=== PATIENT | male | born 1960 | race Hispanic/Latino ===

== ENCOUNTER 2017-05-28 21:18 | Day surgery (SDC) | payer OTHER ==
[~2017-05-28] VITALS: Ht 172.7 cm; Wt 96.2 kg
[~2017-05-28 21:18] MED LIST: AC325T PO; ATOR10TA66 PO; BCL10T PO; CITA20TA7 PO; CYCL10TA9 PO; DCS100C PO; DICL75TA2; DICL75TA2 PO; DOXY100C2 PO; FAMO20TA73 PO; HYDR1TAB PO; LISI1TAB6 PO; LORA0.5T34 PO; Pantoprazole Sodium PO; SILD100T; Trazodone Hcl PO
--- NOTE | 2017-05-28 21:42 | ED Integumentary General ---
General Chief Complaint: Skin/Wound Problems Stated Complaint: L SIDE SPIDER BITE Nursing Triage Note: Pt reports was asleep and awoke to a burn/sting in the left mid upper axillary line around [id number]. Pt had no ride until tonight to be evaluated. Source: patient, spouse Exam Limitations: no limitations History of Present Illness Time seen by provider: 21:37 Initial Comments Patient presents by private conveyance the ER with a chief complaint of a feeling a stinging bite in his left armpit earlier this afternoon. He started developing a rash and some achy pain in his armpit and feels he has a spider bite. He's had this before. He does not have a history of hidradenitis. No allergies to any antibiotics. He is having no nausea today. No shortness breath or chest pain. No itching Allergies and Home Medications Allergies Coded Allergies: codeine (Verified Allergy, Unknown, 04/21/10) Home Medications Acetaminophen 325 Mg Tab, 650 MG PO Q4H PRN for MILD PAIN, #100 Prescribed by: CLEOPATRA MCKENNA on 10/26/14 0938 Atorvastatin Calcium 10 Mg Tablet, #30 (Reported) Citalopram Hydrobromide 20 Mg Tablet, #30 (Reported) Cyclobenzaprine HCl 10 Mg Tablet, #60 (Reported) Diclofenac Sodium 75 Mg Tablet.dr, 75 MG PO BID, (Reported) Diclofenac Sodium 75 Mg Tablet.dr, #60 (Reported) Docusate Sodium 100 Mg Cap, 100 MG PO BID, #60 Prescribed by: CLEOPATRA MCKENNA on 10/26/14 0938 Famotidine 20 Mg Tablet, 20 MG PO BID, (Reported) Hctz/Lisinopril 1 Each Tablet, 1 EACH PO DAILY, (Reported) Hydrocodone Bit/Acetaminophen 1 Each Tablet, 1-2 EACH PO Q4HR PRN, #20 Ref 0 Prescribed by: CIRO PAL on 04/19/102022 Ondansetron HCl 4 Mg Tab, 4 MG PO Q6H PRN for NAUSEA/VOMITING-1ST LINE, #20 Ref 0 Prescribed by: HONEY WILSON on 05/28/172230 Sildenafil Citrate 100 Mg Tablet, #6 (Reported) Sulfamethoxazole/Trimethoprim 1 Each Tablet, 2 EACH PO BID for 10 Days, #38 Ref 0 Prescribed by: HONEY WILSON on 7/18/17 2212 Constitutional: No chills, No diaphoresis, No fever, No malaise Respiratory: No cough, No short of breath Cardiovascular: No chest pain, No palpitations Gastrointestinal: No abdominal pain, No nausea Skin: No pruritus, rash Psychiatric/Neurological: Denies Headache, Denies Numbness, Denies Paresthesia Past Czotqci-Fqssku-Uglwrj Hx Patient Social History Alcohol Use: Occasionally Uses Recreational Drug Use: No Smoking Status: Never a Smoker Recent Foreign Travel: No Contact w/Someone Who Travel: No Recent Infectious Disease Expo: No Recent Hopitalizations: No Immunizations Up To Date Date of Influenza Vaccine: Oct 21, 2014 Seasonal Allergies Seasonal Allergies: No Surgeries HX Surgeries: Yes (R KNEE/BACK) Respiratory Hx Respiratory Disorders: No Cardiovascular Hx Cardiac Disorders: Yes Cardiac Disorders: Hypertension Neurological Hx Neurological Disorders: Yes (cervical stenosis) Neurological Disorders: Neuropathy Reproductive System Hx Reproductive Disorders: No Genitourinary Hx Genitourinary Disorders: Yes (Retention) Gastrointestinal Hx Gastrointestinal Disorders: Yes Gastrointestinal Disorders: Gastroesophageal Reflux Musculoskeletal Hx Musculoskeletal Disorders: Yes Musculoskeletal Disorders: Arthritis Endocrine Hx Endocrine Disorders: No HEENT HX ENT Disorders: No Cancer Hx Cancer: No Psychosocial Hx Psychiatric Problems: No Integumentary HX Skin/Integumentary Disorder: No Blood Transfusions Hx Blood Disorders: No Physical Exam Vital Signs Vital Sign - Last 12Hours 05/28/ 21:23 Temp 99.2 Pulse 111 Resp 20 B/P (MAP) 148/95 Pulse Ox 95 O2 Delivery Room Air Capillary Refill : Less Than 3 Seconds General Appearance: WD/WN, no apparent distress HEENT: PERRL/EOMI, pharynx normal Cardiovascular: normal peripheral pulses, regular rate, rhythm Respiratory: lungs clear, normal breath sounds Gastrointestinal: non tender, soft Neurologic/Psychiatric: alert, oriented x 3 Skin: warm/dry, rash (faint erythematous petechial rash. No pruritus. There is a 2 x 3 mm opening draining scant purulent range over a swollen nodule in the left axilla consistent with abscess.) I&D : Site: left axilla Blade Size: 11 I & D Procedure: sterile drapes applied (chlorhexidine and alcohol) Progress Risk benefits and alternatives were discussed and the patient accepted the consequences of the procedure. The site was cleaned with chlorhexidine and alcohol and infiltrated with 6 cc of 2% lidocaine with epinephrine. Pain control was assured and then an 11 blade was used to matthew open a cross-shaped 7 mm opening over the poor where the purulence had been recently draining. A small amount of purulence and modest amount of serous sinus drainage came out. Loculations were broken up with hemostats and some more purulence came out. The wound was then cleaned thoroughly with chlorhexidine and a dressing was applied. Instructions for wound care were given and the patient was treated with antibiotics. The patient tolerated the procedure very well without any pain. Progress/Results/Core Measures Results/Orders Lab Results Laboratory Tests Test 05/28/17 22:00 Range/Units White Blood Count 12.5 H 4.3-11.0 10^3/uL Red Blood Count 4.59 4.35-5.85 10^6/uL Hemoglobin 13.9 13.3-17.7 G/DL Hematocrit 39 L 40-54 % Mean Corpuscular Volume 86 80-99 FL Mean Corpuscular Hemoglobin 30 25-34 PG Mean Corpuscular Hemoglobin Concent 35 32-36 G/DL Red Cell Distribution Width 13.6 10.0-14.5 % Platelet Count 280 130-400 10^3/uL Mean Platelet Volume 9.9 7.4-10.4 FL Neutrophils (%) (Auto) 82 H 42-75 % Lymphocytes (%) (Auto) 11 L 12-44 % Monocytes (%) (Auto) 5 0-12 % Eosinophils (%) (Auto) 2 0-10 % Basophils (%) (Auto) 0 0-10 % Neutrophils # (Auto) 10.2 H 1.8-7.8 X 10^3 Lymphocytes # (Auto) 1.4 1.0-4.0 X 10^3 Monocytes # (Auto) 0.6 0.0-1.0 X 10^3 Eosinophils # (Auto) 0.3 0.0-0.3 10^3/uL Basophils # (Auto) 0.0 0.0-0.1 10^3/uL Sodium Level 141 135-145 MMOL/L Potassium Level 2.8 L 3.6-5.0 MMOL/L Chloride Level 105 98-107 MMOL/L Carbon Dioxide Level 23 21-32 MMOL/L Anion Gap 13 5-14 MMOL/L Blood Urea Nitrogen 16 7-18 MG/DL Creatinine 0.82 0.60-1.30 MG/DL Estimat Glomerular Filtration Rate > 60 BUN/Creatinine Ratio 20 Glucose Level 141 H 70-105 MG/DL Lactic Acid Level 2.69 *H 0.50-2.00 MMOL/L Calcium Level 8.6 8.5-10.1 MG/DL Total Bilirubin 0.7 0.1-1.0 MG/DL Aspartate Amino Transf (AST/SGOT) 18 5-34 U/L Alanine Aminotransferase (ALT/SGPT) 19 0-55 U/L Alkaline Phosphatase 114 40-136 U/L Total Protein 6.9 6.4-8.2 GM/DL Albumin 3.7 3.2-4.5 GM/DL My Orders Orders - HONEY WILSON Sulfamethoxazole/Trimet Ds Tab (Bactrim (05/28/17 21:45) Lidocaine/Epi 2% 1:100,000 (Xylocaine/Ep (05/28/17 21:45) Cbc With Automated Diff (05/28/17 21:53) Lactic Acid Analyzer (05/28/17 21:53) Comprehensive Metabolic Panel (05/28/17 21:53) Saline Lock/Iv-Start (05/28/17 22:03) Potassium Chloride (Tablet) (K Dur Table (05/28/17 22:30) Ceftriaxone Injection (Rocephin Injectio (05/28/17 22:45) Ns Iv 1000 Ml (Sodium Chloride 0.9%) (05/28/17 22:35) Ns Iv 1000 Ml (Sodium Chloride 0.9%) (05/28/17 22:45) Blood Culture (05/28/17 23:16) Sputum Culture (05/28/17 23:16) Ua Culture If Indicated (05/28/17 23:16) Protime With Inr (05/28/17 23:16) Partial Thromboplastin Time (05/28/17 23:16) Chest 1 View, Ap/Pa Only (05/28/17 23:16) O2 (05/28/17 23:16) Saline Lock/Iv-Start (05/28/17 23:16) Vital Signs Adult Sepsis Patie Q1HR (05/28/17 23:16) Remove Rings In Anticipation O (05/28/17 23:16) Medications Given in ED Current Medications Medications Dose Ordered Sig/Kacey Route Start Time Stop Time Status Last Admin Dose Admin Ceftriaxone Sodium 1000 mg/ Sodium Chloride 50 ml @ 100 mls/hr ONCE ONCE IV 05/28/17 22:45 05/28/17 23:14 DC 05/28/17 22:45 100 MLS/HR Lidocaine/ Epinephrine 20 ml ONCE ONCE INJ 05/28/17 21:45 05/28/17 21:46 DC 05/28/17 21:49 5 ML Potassium Chloride 40 meq ONCE ONCE PO 05/28/17 22:30 05/28/17 22:31 DC 05/28/17 22:36 40 MEQ Sodium Chloride 1,000 ml @ 0 mls/hr Q0M ONCE IV 05/28/17 22:35 05/28/17 22:37 DC 05/28/17 22:45 999 MLS/HR Trimethoprim/ Sulfamethoxazole 2 ea ONCE ONCE PO 05/28/17 21:45 05/28/17 21:46 DC 05/28/17 21:49 2 EA Vital Signs/I&O Vital Sign - Last 12Hours 05/28/17 05/28/17 21:23 21:49 Temp 99.2 99.2 Pulse 111 Resp 20 B/P (MAP) 148/95 Pulse Ox 95 O2 Delivery Room Air Blood Pressure Mean: 112 Progress Note #1: Time: 22:06 Progress Note He's tachycardia although the rest of his vital signs are okay we would just get some lactate CBC and CMP show that he is not septic. If he is septic we will give him IV antibiotics such as Rocephin. There is only a very modest amount of purulence from the wound however he does have a red rash all over. It is more than likely that this was caught early and the wound will drain well. Even if he has to receive IV Rocephin he will likely do well to go home on double strength Bactrim 2 tablets twice a day and follow-up as needed with Dr. Cabral. Progress Note #2: Time: 22:37 Progress Note Potassium level 2.8. He is tolerating by mouth's okay without any nauseous we' ll start his repletion with tablets tonight. We'll have him sweet pickle maker some over- the-counter potassium tomorrow and take it for for 5 days. Progress Note #3: Time: 23:28 Progress Note Lactate was 2.69. We'll give him 2 L of fluid and Rocephin and hold him on observation stay. Blood cultures will unfortunately be obtained after he is received Bactrim. Departure Communication Time/Spoke to Admitting Phy: 23:27 Communication Discussed the plan with Dr. Chavez as well as antibiotics and fluids and an overnight observation and she agrees. She will see the patient in the morning. Impression Impression: Primary Impression: Abscess Additional Impressions: Rash Hypokalemia Severe sepsis Disposition: ADMITTED INPATIENT (obs) Condition: Improved Decision to Admit Reason: Admit from ER (General) Decision to Admit/Date: May 28, 2017 Time/Decision to Admit Time: 23:33 Departure-Patient Inst. Referrals: [facility] (PCP/Family) Primary Care Physician Patient Instructions: Abscess Incision and Drainage (DC) Add. Discharge Instructions: You look to have an infected spider bite in your left armpit that has been opened and drained primarily. The numbing medicine will wear off in 45 minutes to an hour. After that you should probably use Tylenol 1000 mg every 8 hours or ibuprofen 800 mg every 8 hours. It is okay to mix these medicines. You can also apply an ice pack directly over the wound this will help with the swelling as well as the pain. Please keep the wound loosely dressed with gauze and clean it as needed with soap and water only. If you're having worsening redness or pain over the next few days or you start developing fevers chills or nausea and vomiting then you should either return to the ER or go to your doctor for further workup and management. Take the antibiotics 2 tablets twice daily with some food. You should also look into getting probiotics to be taken twice daily while you're on antibiotics to try and prevent having any upset stomach or diarrhea. 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 Follow up next week with your primary care physician to make sure you're potassium levels are okay. All discharge instructions reviewed with patient and/or family. Voiced understanding. Scripts Ondansetron HCl (Zofran) 4 Mg Tab 4 MG PO Q6H Y for NAUSEA/VOMITING-1ST LINE, #20 TAB 0 Refills Prov: HONEY WILSON 05/28/17 Sulfamethoxazole/Trimethoprim (Bactrim Ds Tablet) 1 Each Tablet 2 EACH PO BID for 10 Days, #38 TAB 0 Refills Prov: HONEY WILSON 05/28/17 Copy Copies To 1: ART QUINTERO TITUS J May 28, 2017 21:42
[2017-05-28] MEDS ORDERED: TRIM/SULFAMETH 160/800 (SEPTRA DS) TAB PO ONE (21:45)
[2017-05-28] MEDS ORDERED: LIDOCAINE/EPI 2% 1:100,00 (XYLOCAINE) 20 ML VIAL INJ ONE (21:45)
[2017-05-28 22:09] LABS: BASOPHILS % (AUTO) 0 % (0-10); EOSINOPHILS # (AUTO) 0.3 10^3/uL (0.0-0.3); EOSINOPHILS % (AUTO) 2 % (0-10); LYMPHOCYTES # (AUTO) 1.4 X 10^3 (1.0-4.0); LYMPHOCYTES % (AUTO) 11 % (12-44); MEAN CORPUSCULAR HEMOGLOBIN 30 PG (25-34); MEAN CORPUSCULAR HGB CONC 35 G/DL (32-36); MEAN CORPUSCULAR VOLUME 86 FL (80-99); MEAN PLATELET VOLUME 9.9 FL (7.4-10.4); MONOCYTES # (AUTO) 0.6 X 10^3 (0.0-1.0); MONOCYTES % (AUTO) 5 % (0-12); NEUTROPHILS # (AUTO) 10.2 X 10^3 (1.8-7.8); NEUTROPHILS % (AUTO) 82 % (42-75); PLATELET COUNT 280 10^3/uL (130-400); RED BLOOD COUNT 4.59 10^6/uL (4.35-5.85); RED CELL DISTRIBUTION WIDTH 13.6 % (10.0-14.5); WHITE BLOOD COUNT 12.5 10^3/uL (4.3-11.0)
[2017-05-28] MEDS ORDERED: SULF1TAB35 PO (22:12)
[2017-05-28 22:26] LABS: ALANINE AMINOTRANSFERASE 19 U/L (0-55); ALBUMIN 3.7 GM/DL (3.2-4.5); ANION GAP 13 MMOL/L (5-14); ASPARTATE AMINO TRANSFERASE 18 U/L (5-34); BILIRUBIN,TOTAL 0.7 MG/DL (0.1-1.0); BLOOD UREA NITROGEN 16 MG/DL (7-18); BUN/CREATININE RATIO 20; CALCIUM 8.6 MG/DL (8.5-10.1); CARBON DIOXIDE 23 MMOL/L (21-32); CHLORIDE 105 MMOL/L (98-107); CREATININE SERUM 0.82 MG/DL (0.60-1.30); GFR ESTIMATED > 60; GLUCOSE 141 MG/DL (70-105); POTASSIUM 2.8 MMOL/L (3.6-5.0); SODIUM 141 MMOL/L (135-145); TOTAL PROTEIN 6.9 GM/DL (6.4-8.2)
[2017-05-28] MEDS ORDERED: KCL 20 MEQ TAB (K-DUR) PO ONE (22:30)
[2017-05-28] MEDS ORDERED: ONDN4T PO (22:31)
[2017-05-28] MEDS ORDERED: NS IV 1000 ML 1,000 ML IV ONE (22:35)
[2017-05-28] MEDS ORDERED: NS IV 1000 ML 1,000 ML IV SCH (22:45)
[2017-05-28] MEDS ORDERED: cefTRIAXone INJECTION 1,000 MG in NS (IVPB) 50 ML IV ONE (22:45)
[2017-05-28 23:26] LABS: PROTHROMBIN TIME PATIENT 13.1 SEC (12.2-14.7)
[2017-05-29] MEDS ORDERED: ASPIRIN 81 MG CHEW (CHILDREN'S ASA) PO ONE (00:15)
[2017-05-29 00:23] LABS: BILIRUBIN,URINE NEGATIVE (NEGATIVE); KETONES,URINE NEGATIVE (NEGATIVE); LEUKOCYTE ESTERASE ,URINE NEGATIVE (NEGATIVE); NITRITE,URINE NEGATIVE (NEGATIVE); PH,URINE 6.5 (5-9); PROTEIN,URINE NEGATIVE (NEGATIVE); UROBILINOGEN,URINE 4 MG/DL (NORMAL)
[2017-05-29] MEDS ORDERED: methylPREDNISolone 125 MG (Solu-MEDROL) VIAL IVP ONE (00:30)
[2017-05-29] MEDS ORDERED: diphenhydrAMINE 50 MG/ML INJ (BENADRYL) IVP ONE (00:30)
[2017-05-29 00:32] LABS: SQUAMOUS EPITHELIAL CELL,UR 0-2 /HPF
[2017-05-29 01:07] LABS: MYOGLOBIN SERUM 68.5 NG/ML (10.0-92.0)
[2017-05-29] MEDS: morphine INJ 4 MG/ML 1 ML (VIAL/SYRINGE) IV PRN ×3 (02:25→06:49)
[2017-05-29] MEDS: NS IV 1000 ML 1,000 ML IV SCH ×2 (02:25→17:31)
[2017-05-29] MEDS: ACETAMINOPHEN 500 MG TAB (TYLENOL) PO PRN ×2 (03:33→13:35)
[2017-05-29 03:53] VITALS: BP 135/81
[2017-05-29 05:02] LABS: BASOPHILS % (AUTO) 0 % (0-10); EOSINOPHILS % (AUTO) 0 % (0-10); LYMPHOCYTES # (AUTO) 0.4 X 10^3 (1.0-4.0); LYMPHOCYTES % (AUTO) 3 % (12-44); MEAN CORPUSCULAR HEMOGLOBIN 30 PG (25-34); MEAN CORPUSCULAR HGB CONC 35 G/DL (32-36); MEAN CORPUSCULAR VOLUME 87 FL (80-99); MEAN PLATELET VOLUME 10.6 FL (7.4-10.4); MONOCYTES # (AUTO) 0.2 X 10^3 (0.0-1.0); MONOCYTES % (AUTO) 1 % (0-12); NEUTROPHILS # (AUTO) 14.7 X 10^3 (1.8-7.8); NEUTROPHILS % (AUTO) 96 % (42-75); PLATELET COUNT 261 10^3/uL (130-400); RED BLOOD COUNT 4.69 10^6/uL (4.35-5.85); RED CELL DISTRIBUTION WIDTH 13.8 % (10.0-14.5); WHITE BLOOD COUNT 15.4 10^3/uL (4.3-11.0)
[2017-05-29 05:16] LABS: ALANINE AMINOTRANSFERASE 22 U/L (0-55); ALBUMIN 3.9 GM/DL (3.2-4.5); ANION GAP 14 MMOL/L (5-14); ASPARTATE AMINO TRANSFERASE 22 U/L (5-34); BILIRUBIN,TOTAL 0.7 MG/DL (0.1-1.0); BLOOD UREA NITROGEN 11 MG/DL (7-18); BUN/CREATININE RATIO 14; CALCIUM 8.5 MG/DL (8.5-10.1); CARBON DIOXIDE 21 MMOL/L (21-32); CHLORIDE 105 MMOL/L (98-107); CREATININE SERUM 0.81 MG/DL (0.60-1.30); GFR ESTIMATED > 60; GLUCOSE 208 MG/DL (70-105); POTASSIUM 2.8 MMOL/L (3.6-5.0); SODIUM 140 MMOL/L (135-145); TOTAL PROTEIN 7.4 GM/DL (6.4-8.2)
[2017-05-29 05:35] LABS: BAND NEUTROPHILS 3 %; LYMPHOCYTES % (MANUAL) 5 %; NEUTROPHILS % (MANUAL) 91 %
[2017-05-29] MEDS: methylPREDNISolone 125 MG (Solu-MEDROL) VIAL IV SCH ×3 (06:02→17:31)
[2017-05-29] MEDS: HYDROcodone/APAP 5 MG/325 MG (LORTAB) TAB PO PRN ×4 (06:02→23:20)
[2017-05-29] MEDS: diphenhydrAMINE 50 MG/ML INJ (BENADRYL) IV PRN (06:02)
[2017-05-29] MEDS: TRIM/SULFAMETH 160/800 (SEPTRA DS) TAB PO SCH ×2 (06:02→17:30)
--- NOTE | 2017-05-29 07:17 | Diagnostic Imaging Report ---
INDICATION: Possible spider bite, infection. FINDINGS: The lungs are clear. The heart and vessels normal. There is no effusion or pneumothorax. IMPRESSION: Negative. Dictated by: Dictated on workstation # [id number]
[2017-05-29] MEDS ORDERED: CATHETER FLUSH 10 ML SYR IV PRN (07:30)
[2017-05-29 08:30] VITALS: BP 133/84
[2017-05-29] MEDS ORDERED: CELE200C PO (08:38)
[2017-05-29] MEDS ORDERED: AMLO5TAB2 PO (08:38)
[2017-05-29] MEDS ORDERED: GABA-488 PO (08:38)
[2017-05-29] MEDS ORDERED: SILD50TA PO (08:38)
[2017-05-29] MEDS ORDERED: POTASSIUM CL 10MEQ/50ML IVPB 100 ML IV SCH (09:00)
[2017-05-29] MEDS ORDERED: KCL 20 MEQ TAB (K-DUR) PO NR (09:45)
[2017-05-29] MEDS ORDERED: IBUPROFEN 600 MG (MOTRIN) TAB PO PRN (10:00)
[2017-05-29 12:30] VITALS: BP 156/94
[2017-05-29 13:00] VITALS: BP 156/84
--- NOTE | 2017-05-29 13:41 | Consultation ---
History of Present Illness History of Present Illness Patient Consulted On(chas/time) 05/29/17 13:36 Time Seen by Provider: 12:58 History of Present Illness Surgery is consulted regarding Left axillary abscess, ?? need for I&D. HPI: Patient presented to the ER with a chief complaint of a feeling a stinging bite in his left armpit yesterday afternoon. He started developing a rash and some achy pain in his armpit; thought it may be a spider bite. He believes he has had something similar before. He does not have a history of hidradenitis. No allergies to any antibiotics. Yesterday denied nausea, no shortness breath or chest pain. No itching He was admitted last night because he started complaining of right sided chest pain, also found to be Hypokalemic. When seen this afternoon he states the pain is still very bad; rating it as "13" out of 10. He thinks the redness is spreading as well. He had a very small incision done by the ER physician, but it has not improved the area. He is requiring IV pain meds. Pain shoots into shoulder and down his side. Allergies and Home Medications Allergies Coded Allergies: codeine (Verified Allergy, Unknown, 04/21/10) Home Medications Amlodipine Besylate 5 Mg Tablet, 5 MG PO DAILY, (Reported) Atorvastatin Calcium 10 Mg Tablet, 10 MG PO DAILY, (Reported) Celecoxib 200 Mg Capsule, 200 MG PO DAILY, (Reported) Citalopram Hydrobromide 20 Mg Tablet, 20 MG PO DAILY, (Reported) Cyclobenzaprine HCl 10 Mg Tablet, 10 MG PO TID PRN for MUSCLE SPASMS, (Reported) Famotidine 20 Mg Tablet, 20 MG PO DAILY, (Reported) Gabapentin 300 Mg Capsule, 300 MG PO DAILY, (Reported) Sildenafil Citrate 50 Mg Tablet, 100 MG PO DAILY PRN for ED, (Reported) TAKES 2 (50MG) TABLETS Past Kyuluec-Qmapop-Aelkqr Hx Patient Social History Alcohol Use: Occasionally Uses Recreational Drug Use: No Smoking Status: Never a Smoker Recent Foreign Travel: No Contact w/Someone Who Travel: No Recent Infectious Disease Expo: No Recent Hopitalizations: No Physical Abuse Screen: No Sexual Abuse: No Immunizations Up To Date Date of Influenza Vaccine: Oct 21, 2014 Seasonal Allergies Seasonal Allergies: No Surgeries HX Surgeries: Yes (R KNEE/BACK) Respiratory Hx Respiratory Disorders: No Cardiovascular Hx Cardiac Disorders: Yes Cardiac Disorders: Hypertension Neurological Hx Neurological Disorders: Yes (cervical stenosis) Neurological Disorders: Neuropathy Reproductive System Hx Reproductive Disorders: No Genitourinary Hx Genitourinary Disorders: Yes (Retention) Gastrointestinal Hx Gastrointestinal Disorders: Yes Gastrointestinal Disorders: Gastroesophageal Reflux Musculoskeletal Hx Musculoskeletal Disorders: Yes Musculoskeletal Disorders: Arthritis Endocrine Hx Endocrine Disorders: No HEENT HX ENT Disorders: No Cancer Hx Cancer: No Psychosocial Hx Psychiatric Problems: No Integumentary HX Skin/Integumentary Disorder: No Blood Transfusions Hx Blood Disorders: No Family Medical History Significant Family History: Heart Disease (Mother CHF), CAD Over 55 Years Old ( father had DC) Family Medial History: FH: congestive heart failure 19 MOTHER Myocardial infarction 19 FATHER Review of Systems-General Constitutional: chills, diaphoresis, malaise EENTM: No blurred vision, No dental problems, No epistaxis, No hearing loss, No throat swelling Respiratory: No cough, No dyspnea on exertion, No hemoptysis Cardiovascular: chest pain (right side last night, seems to have resolved), No palpitations Gastrointestinal: No abdominal pain, No diarrhea, No hematemesis Genitourinary: No dysuria, No frequency, other (retention) Musculoskeletal: joint pain, joint swelling, muscle stiffness Skin: see HPI Psychiatric/Neurological: Denies Anxiety, Denies Depressed, Denies Pre- Existing Deficit, Denies Seizure, Denies Tremors Physical Exam-General Problems Physical Exam Vital Signs Vital Sign - Last 12Hours 05/28/17 21:23 Temp 99.2 Pulse 111 Resp 20 B/P (MAP) 148/95 Pulse Ox 95 O2 Delivery Room Air Capillary Refill : Less Than 3 Seconds General Appearance: WD/WN, moderate distress (secondary to pain), obese Eyes: Bilateral Eye EOMI, Bilateral Eye PERRL HEENT: pharynx normal, No scleral icterus (R), No scleral icterus (L) Neck: non-tender, full range of motion, supple, normal inspection Respiratory: lungs clear, normal breath sounds, no respiratory distress, no accessory muscle use Cardiovascular: regular rate, rhythm, no edema, no murmur Gastrointestinal: normal bowel sounds, non tender, soft, no organomegaly, no pulsatile mass Rectal: deferred Extremities: normal range of motion, non-tender, normal inspection, no pedal edema, no calf tenderness 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, no motor/sensory deficits, alert, normal mood/affect, oriented x 3 Skin: normal color, warm/dry, other (in the left axilla there is an area of appx 20cm trasverse by 8-10 cm tall, of erythema, very tender even to light touch, no fluctuance) Lymphatic: no adenopathy (neck or groin, nothing right axilla, cannot fully examine left) Data Review Labs Laboratory Tests 05/28/17 22:00: White Blood Count 12.5H, Red Blood Count 4.59, Hemoglobin 13.9, Hematocrit 39L, Mean Corpuscular Volume 86, Mean Corpuscular Hemoglobin 30, Mean Corpuscular Hemoglobin Concent 35, Red Cell Distribution Width 13.6, Platelet Count 280, Mean Platelet Volume 9.9, Neutrophils (%) (Auto) 82H, Lymphocytes (%) (Auto) 11L , Monocytes (%) (Auto) 5, Eosinophils (%) (Auto) 2, Basophils (%) (Auto) 0, Neutrophils # (Auto) 10.2H, Lymphocytes # (Auto) 1.4, Monocytes # (Auto) 0.6, Eosinophils # (Auto) 0.3, Basophils # (Auto) 0.0, Prothrombin Time 13.1, INR Comment 1.0, Activated Partial Thromboplast Time 26, Sodium Level 141, Potassium Level 2.8L, Chloride Level 105, Carbon Dioxide Level 23, Anion Gap 13 , Blood Urea Nitrogen 16, Creatinine 0.82, Estimat Glomerular Filtration Rate > 60, BUN/Creatinine Ratio 20, Glucose Level 141H, Lactic Acid Level 2.69*H, Calcium Level 8.6, Total Bilirubin 0.7, Aspartate Amino Transf (AST/SGOT) 18, Alanine Aminotransferase (ALT/SGPT) 19, Alkaline Phosphatase 114, Total Protein 6.9, Albumin 3.7 05/28/17 23:47: Lactic Acid Level 1.87 05/29/17 00:00: Urine Color YELLOW, Urine Clarity CLEAR, Urine pH 6.5, Urine Specific [place] 1.015L, Urine Protein NEGATIVE, Urine Glucose (UA) NEGATIVE, Urine Ketones NEGATIVE, Urine Nitrite NEGATIVE, Urine Bilirubin NEGATIVE, Urine Urobilinogen 4H, Urine Leukocyte Esterase NEGATIVE, Urine RBC (Auto) 1+H, Urine RBC 0-2, Urine WBC NONE, Urine Squamous Epithelial Cells 0-2, Urine Crystals NONE, Urine Bacteria NEGATIVE, Urine Casts NONE, Urine Mucus NEGATIVE, Urine Culture Indicated NO 05/29/17 00:37: Myoglobin 68.5, Troponin I < 0.30 05/29/17 02:06: Lactic Acid Level 1.55 05/29/17 04:14: White Blood Count 15.4H, Red Blood Count 4.69, Hemoglobin 14.1, Hematocrit 41, Mean Corpuscular Volume 87, Mean Corpuscular Hemoglobin 30, Mean Corpuscular Hemoglobin Concent 35, Red Cell Distribution Width 13.8, Platelet Count 261, Mean Platelet Volume 10.6H, Neutrophils (%) (Auto) 96H, Lymphocytes (%) (Auto) 3L, Monocytes (%) (Auto) 1, Eosinophils (%) (Auto) 0, Basophils (%) (Auto) 0, Neutrophils # (Auto) 14.7H, Lymphocytes # (Auto) 0.4L, Monocytes # (Auto) 0.2, Eosinophils # (Auto) 0.0, Basophils # (Auto) 0.0, Neutrophils % (Manual) 91, Lymphocytes % (Manual) 5, Monocytes % (Manual) 1, Band Neutrophils 3, Blood Morphology Comment NORMAL, Sodium Level 140, Potassium Level 2.8L, Chloride Level 105, Carbon Dioxide Level 21, Anion Gap 14, Blood Urea Nitrogen 11, Creatinine 0.81, Estimat Glomerular Filtration Rate > 60, BUN/Creatinine Ratio 14, Glucose Level 208H, Calcium Level 8.5, Total Bilirubin 0.7, Aspartate Amino Transf (AST/SGOT) 22, Alanine Aminotransferase (ALT/SGPT) 22, Alkaline Phosphatase 117, Total Protein 7.4, Albumin 3.9 Assessment/Plan Assessment/Plan Assessment/Plan 1. Left Axillary Cellulitis/Abscess 2. Hypokalemia 3. HTN Pt will be placed on IV pain meds, continue oral Bactrim until we get microbiology results. NPO after midnight and get consent of I&D possible packing of Left axilla. Discussed procedure with pt; all risks and complications not limited to pain, bleeding, infection and scar. All questions answered to his satisfaction. Plan for surgery tomorrow because pt was eating today. Clinical Quality Measures DVT/VTE Risk/Contraindication: Risk Factor Score Per Nursin RFS Level Per Nursing on Admit: 4+=Very High CLEOPATRA ZAVALA DO May 29, 2017 13:41
[2017-05-29] MEDS: morphine INJ 4 MG/ML 1 ML (VIAL/SYRINGE) IVP PRN ×3 (14:34→22:10)
[2017-05-29] MEDS: CALCIUM CARBONATE 500 MG (TUMS) TAB.CHEW PO PRN ×2 (15:48→17:39)
[2017-05-29 16:00] VITALS: BP 179/95
[2017-05-29] MEDS ORDERED: CYCLOBENZAPRINE 10 MG (FLEXERIL) TAB PO PRN (16:15)
--- NOTE | 2017-05-29 19:44 | History & Physicial ([facility]S) ---
HPI History of Present Illness: 56 yo M that presented to ER after he states that he was bit by a spider. States that he did not see the spider. States that the area turned red and now is very tender and is draining a small amount of pus. He has not had anything like this in the past. States that it hurts when he moves his arm around. Denies any systemic symptoms like fever, chills or shortness of breath. Just prior to coming up to the floor patient complained of chest pain. ECG was normal. Patient denied shortness of breath. The pain went away in about 10 secs. It has not occurred again. States that he was very anxious about getting admitted. Denies racing heart or numbness or tingling in arm. Denies previous CAD. Source: patient, family (GF) Exam Limitations: no limitations Date seen by provider: May 29, 2017 Time Seen by Provider: 10:35 Attending Physician Abril Chavez MD PCP [facility] Date of Admission May 29, 2017 at 01:35 Home Medications Home Medications Reviewed patient Home Medication Reconciliation Form Allergies Coded Allergies: codeine (Verified Allergy, Unknown, 04/21/10) [id number] Hx Patient Social History Living Status: Lives with GF Alcohol Use: Occasionally Uses Recreational Drug Use: No Smoking Status: Never a Smoker Recent Foreign Travel: No Contact w/other who traveled: No Recent Hopitalizations: No Recent Infectious Disease Expo: No Physical Abuse Screen: No Sexual Abuse: No Immunizations Up To Date Date of Influenza Vaccine: Oct 21, 2014 Past Medical History HTN Obesity Family Medical History Significant Family History: Heart Disease (Mother CHF), CAD Over 55 Years Old ( father had OH) Family History: FH: congestive heart failure 19 MOTHER Myocardial infarction 19 FATHER Review of Systems ([facility]C) Constitutional: no symptoms reported, No chills, No dizziness, No fever EENTM: no symptoms reported, No throat pain, No throat swelling, No vision loss Respiratory: no symptoms reported, No cough, No dyspnea on exertion, No short of breath Cardiovascular: chest pain (resolved last night), No edema, No palpitations Gastrointestinal: no symptoms reported, No abdominal pain, No constipation, No diarrhea, No nausea, No vomiting Genitourinary: no symptoms reported, No dysuria, No frequency, No hematuria Musculoskeletal: muscle pain Skin: lesions, pruritus, rash Psychiatric/Neurological: Anxiety Reviewed Test Results Reviewed Test Results Lab Laboratory Tests Test 05/28/17 22:00 05/28/17 23:47 05/29/17 00:00 05/29/17 00:37 Range/Units White Blood Count 12.5 H 4.3-11.0 10^3/uL Red Blood Count 4.59 4.35-5.85 10^6/uL Hemoglobin 13.9 13.3-17.7 G/DL Hematocrit 39 L 40-54 % Mean Corpuscular Volume 86 80-99 FL Mean Corpuscular Hemoglobin 30 25-34 PG Mean Corpuscular Hemoglobin Concent 35 32-36 G/DL Red Cell Distribution Width 13.6 10.0-14.5 % Platelet Count 280 130-400 10^3/uL Mean Platelet Volume 9.9 7.4-10.4 FL Neutrophils (%) (Auto) 82 H 42-75 % Lymphocytes (%) (Auto) 11 L 12-44 % Monocytes (%) (Auto) 5 0-12 % Eosinophils (%) (Auto) 2 0-10 % Basophils (%) (Auto) 0 0-10 % Neutrophils # (Auto) 10.2 H 1.8-7.8 X 10^3 Lymphocytes # (Auto) 1.4 1.0-4.0 X 10^3 Monocytes # (Auto) 0.6 0.0-1.0 X 10^3 Eosinophils # (Auto) 0.3 0.0-0.3 10^3/uL Basophils # (Auto) 0.0 0.0-0.1 10^3/uL Prothrombin Time 13.1 12.2-14.7 SEC INR Comment 1.0 0.8-1.4 Activated Partial Thromboplast Time 26 24-35 SEC Sodium Level 141 135-145 MMOL/L Potassium Level 2.8 L 3.6-5.0 MMOL/L Chloride Level 105 98-107 MMOL/L Carbon Dioxide Level 23 21-32 MMOL/L Anion Gap 13 5-14 MMOL/L Blood Urea Nitrogen 16 7-18 MG/DL Creatinine 0.82 0.60-1.30 MG/DL Estimat Glomerular Filtration Rate > 60 BUN/Creatinine Ratio 20 Glucose Level 141 H 70-105 MG/DL Lactic Acid Level 2.69 *H 1.87 0.50-2.00 MMOL/L Calcium Level 8.6 8.5-10.1 MG/DL Total Bilirubin 0.7 0.1-1.0 MG/DL Aspartate Amino Transf (AST/SGOT) 18 5-34 U/L Alanine Aminotransferase (ALT/SGPT) 19 0-55 U/L Alkaline Phosphatase 114 40-136 U/L Total Protein 6.9 6.4-8.2 GM/DL Albumin 3.7 3.2-4.5 GM/DL Urine Color YELLOW Urine Clarity CLEAR Urine pH 6.5 5-9 Urine Specific [place] 1.015 L 1.016-1.022 Urine Protein NEGATIVE NEGATIVE Urine Glucose (UA) NEGATIVE NEGATIVE Urine Ketones NEGATIVE NEGATIVE Urine Nitrite NEGATIVE NEGATIVE Urine Bilirubin NEGATIVE NEGATIVE Urine Urobilinogen 4 H NORMAL MG/DL Urine Leukocyte Esterase NEGATIVE NEGATIVE Urine RBC (Auto) 1+ H NEGATIVE Urine RBC 0-2 /HPF Urine WBC NONE /HPF Urine Squamous Epithelial Cells 0-2 /HPF Urine Crystals NONE /LPF Urine Bacteria NEGATIVE /HPF Urine Casts NONE /LPF Urine Mucus NEGATIVE /LPF Urine Culture Indicated NO Myoglobin 68.5 10.0-92.0 NG/ML Troponin I < 0.30 <0.30 NG/ML Test 05/29/17 02:06 05/29/17 04:14 Range/Units Lactic Acid Level 1.55 0.50-2.00 MMOL/L White Blood Count 15.4 H 4.3-11.0 10^3/uL Red Blood Count 4.69 4.35-5.85 10^6/uL Hemoglobin 14.1 13.3-17.7 G/DL Hematocrit 41 40-54 % Mean Corpuscular Volume 87 80-99 FL Mean Corpuscular Hemoglobin 30 25-34 PG Mean Corpuscular Hemoglobin Concent 35 32-36 G/DL Red Cell Distribution Width 13.8 10.0-14.5 % Platelet Count 261 130-400 10^3/uL Mean Platelet Volume 10.6 H 7.4-10.4 FL Neutrophils (%) (Auto) 96 H 42-75 % Lymphocytes (%) (Auto) 3 L 12-44 % Monocytes (%) (Auto) 1 0-12 % Eosinophils (%) (Auto) 0 0-10 % Basophils (%) (Auto) 0 0-10 % Neutrophils # (Auto) 14.7 H 1.8-7.8 X 10^3 Lymphocytes # (Auto) 0.4 L 1.0-4.0 X 10^3 Monocytes # (Auto) 0.2 0.0-1.0 X 10^3 Eosinophils # (Auto) 0.0 0.0-0.3 10^3/uL Basophils # (Auto) 0.0 0.0-0.1 10^3/uL Neutrophils % (Manual) 91 % Lymphocytes % (Manual) 5 % Monocytes % (Manual) 1 % Band Neutrophils 3 % Blood Morphology Comment NORMAL Sodium Level 140 135-145 MMOL/L Potassium Level 2.8 L 3.6-5.0 MMOL/L Chloride Level 105 98-107 MMOL/L Carbon Dioxide Level 21 21-32 MMOL/L Anion Gap 14 5-14 MMOL/L Blood Urea Nitrogen 11 7-18 MG/DL Creatinine 0.81 0.60-1.30 MG/DL Estimat Glomerular Filtration Rate > 60 BUN/Creatinine Ratio 14 Glucose Level 208 H 70-105 MG/DL Calcium Level 8.5 8.5-10.1 MG/DL Total Bilirubin 0.7 0.1-1.0 MG/DL Aspartate Amino Transf (AST/SGOT) 22 5-34 U/L Alanine Aminotransferase (ALT/SGPT) 22 0-55 U/L Alkaline Phosphatase 117 40-136 U/L Total Protein 7.4 6.4-8.2 GM/DL Albumin 3.9 3.2-4.5 GM/DL Radiology Date of Exam: 05/28/17 CHEST 1 VIEW, AP/PA ONLY INDICATION: Possible spider bite, infection. FINDINGS: The lungs are clear. The heart and vessels normal. There is no effusion or pneumothorax. IMPRESSION: Negative. Physical Exam-([facility]C) Physical Exam Vital Signs VS - Last 72 Hours, by Label 05/28/17 05/28/17 05/29/17 05/29/17 21:23 21:49 00:33 01:27 Temp 99.2 99.2 99.2 99.6 Pulse 111 99 Resp 20 20 B/P (MAP) 148/95 Pulse Ox 95 95 O2 Delivery Room Air Room Air 05/29/17 05/29/17 05/29/17 05/29/17 01:27 02:00 02:45 03:53 Temp 99.6 98.1 Pulse 99 111 103 Resp 20 20 B/P (MAP) 135/81 135/81 Pulse Ox 95 93 O2 Delivery Room Air Room Air Room Air 05/29/17 05/29/17 05/29/17 05/29/17 07:37 08:30 12:30 13:00 Temp 99.1 96.9 98.0 Pulse 100 97 115 95 Resp 22 24 22 B/P (MAP) 133/84 156/94 156/84 Pulse Ox 93 93 94 O2 Delivery Room Air Room Air Room Air 05/29/17 05/29/17 13:10 16:00 Temp 98.4 Pulse 101 102 Resp 22 B/P (MAP) 179/95 Pulse Ox 97 O2 Delivery Room Air Capillary Refill : Less Than 3 Seconds General Appearance: WD/WN, no apparent distress HEENT: PERRL/EOMI Neck: non-tender, full range of motion, supple, normal inspection Respiratory: chest non-tender, lungs clear, normal breath sounds, no respiratory distress, no accessory muscle use, No crackles, No rales, No wheezing Cardiovascular: normal peripheral pulses, regular rate, rhythm, no edema, no gallop, no JVD, no murmur Gastrointestinal: normal bowel sounds, non tender, soft, no organomegaly, no pulsatile mass, No guarding, No rebound Extremities: normal range of motion, non-tender, normal inspection, no pedal edema, no calf tenderness, normal capillary refill Neurologic/Psychiatric: 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, no motor/sensory deficits, alert, normal mood/affect, oriented x 3 Skin: other (Left axillary cellulitis with induration and erythema with a small amount of purulent drainage, TTP, + warmth) Lymphatic: no adenopathy Assessment/Plan Assessment/Plan Plan 56 yo M that presented with left axillary cellulitis with associated abscess Plan Left axillary Cellulitis with abscess - Motrin and tylenol for pain control - Dr Lyon with Surgery consulted for I&D - Lactic Acid resolved with fluids Atypical Chest pain - ASA given - ECG and CE normal HTN - Will restart home medications FEN: Cardiac diet, NPO at midnight DVT: SCDs Dispo: Admit to Med/Surg Diagnosis/Problems: Clinical Quality Measures DVT/VTE Risk/Contraindication: Risk Factor Score Per Nursin RFS Level Per Nursing on Admit: 4+=Very High Copy Copies To 1: [facility], ABRIL Mathur MD May 29, 2017 19:44
[2017-05-29 19:47] VITALS: BP 181/95
[2017-05-29] MEDS ORDERED: amLODIPine 10 MG (NORVASC) TAB ONE (20:04)
[2017-05-29] MEDS ORDERED: amLODIPine 10 MG (NORVASC) TAB PO NR (20:15)
[2017-05-29] MEDS: FAMOTIDINE 20MG/2ML IV (PEPCID) IVP PRN (23:20)
[2017-05-30] VITALS (7 sets, daily range): BP systolic 115–170; BP diastolic 72–99
[2017-05-30] MEDS: morphine INJ 4 MG/ML 1 ML (VIAL/SYRINGE) IVP PRN ×8 (00:14→23:28)
[2017-05-30] MEDS: NS IV 1000 ML 1,000 ML IV SCH ×3 (05:17→23:35)
[2017-05-30 05:37] LABS: BASOPHILS % (AUTO) 0 % (0-10); EOSINOPHILS % (AUTO) 0 % (0-10); LYMPHOCYTES # (AUTO) 0.6 X 10^3 (1.0-4.0); LYMPHOCYTES % (AUTO) 3 % (12-44); MEAN CORPUSCULAR HEMOGLOBIN 30 PG (25-34); MEAN CORPUSCULAR HGB CONC 35 G/DL (32-36); MEAN CORPUSCULAR VOLUME 87 FL (80-99); MEAN PLATELET VOLUME 10.6 FL (7.4-10.4); MONOCYTES # (AUTO) 0.5 X 10^3 (0.0-1.0); MONOCYTES % (AUTO) 2 % (0-12); NEUTROPHILS # (AUTO) 20.4 X 10^3 (1.8-7.8); NEUTROPHILS % (AUTO) 95 % (42-75); PLATELET COUNT 280 10^3/uL (130-400); RED BLOOD COUNT 4.28 10^6/uL (4.35-5.85); RED CELL DISTRIBUTION WIDTH 13.8 % (10.0-14.5); WHITE BLOOD COUNT 21.5 10^3/uL (4.3-11.0)
[2017-05-30 06:06] LABS: ALANINE AMINOTRANSFERASE 17 U/L (0-55); ALBUMIN 3.6 GM/DL (3.2-4.5); ANION GAP 10 MMOL/L (5-14); ASPARTATE AMINO TRANSFERASE 13 U/L (5-34); BILIRUBIN,TOTAL 0.6 MG/DL (0.1-1.0); BLOOD UREA NITROGEN 32 MG/DL (7-18); BUN/CREATININE RATIO 45; CALCIUM 9.2 MG/DL (8.5-10.1); CARBON DIOXIDE 21 MMOL/L (21-32); CHLORIDE 105 MMOL/L (98-107); CREATININE SERUM 0.71 MG/DL (0.60-1.30); GFR ESTIMATED > 60; GLUCOSE 167 MG/DL (70-105); POTASSIUM 3.9 MMOL/L (3.6-5.0); SODIUM 136 MMOL/L (135-145); TOTAL PROTEIN 6.8 GM/DL (6.4-8.2)
[2017-05-30 06:08] LABS: BAND NEUTROPHILS 2 %; BASOPHILS % (MANUAL) 0 %; CHOLESTEROL 140 MG/DL (< 200); DIRECT LDL 76 MG/DL (1-129); EOSINOPHILS % (MANUAL) 0 %; LYMPHOCYTES % (MANUAL) 3 %; NEUTROPHILS % (MANUAL) 94 %; TRIGLYCERIDES 83 MG/DL (<150); VLDL CHOLESTEROL 17 MG/DL (5-40)
[2017-05-30 06:09] LABS: ANISOCYTOSIS SLIGHT
[2017-05-30] MEDS: TRIM/SULFAMETH 160/800 (SEPTRA DS) TAB PO SCH ×2 (07:43→15:44)
[2017-05-30] MEDS ORDERED: LIDOCAINE/EPI 1%-1:200,000 (XYLOCAINE) 30 ML VIAL ONE (09:15)
[2017-05-30] MEDS: ATORVASTATIN 10 MG (LIPITOR) TABLET PO SCH (09:24)
[2017-05-30] MEDS: amLODIPine 5 MG (NORVASC) TAB PO SCH (09:24)
[2017-05-30] MEDS ORDERED: fentaNYL INJECTION 100 MCG/2 ML AMP ONE (09:29)
[2017-05-30] MEDS ORDERED: MIDAZOLAM 2 MG/2 ML (VERSED) VIAL ONE (09:29)
--- NOTE | 2017-05-30 10:17 | Progress Note-Post Operative ---
Post-Operative Progess Note Surgeon (s)/Retail Delivery Driver (s) Surgeon CLEOPATRA ZAVALA DO Retail Delivery Driver: none Pre-Operative Diagnosis Left axillary cellulitis/abscess Post-Operative Diagnosis same Procedure & Operative Findings Date of Procedure 05/30/17 Procedure Performed/Findings I&D with debridement and packing Anesthesia Type GET Estimated Blood Loss Estimated blood loss (mL): appx 20ml Specimens/Packing Specimens Removed wound culture Packin" iodophor packing CLEOPATRA ZAVALA DO May 30, 2017 10:17
[2017-05-30] MEDS ORDERED: SUCCINYLCHOLINE INJ 100 MG/5 ML SYR ONE (10:29)
[2017-05-30] MEDS ORDERED: RT-ALBUTEROL SULF 2.5 MG/3 ML PRE-MIX VIAL ONE (10:34)
[2017-05-30] MEDS ORDERED: ONDANSETRON 4 MG/2 ML (SDV) Z0FRAN ONE (10:42)
[2017-05-30] MEDS ORDERED: LACTATED RINGERS 1,000 ML IV PRN (10:51)
[2017-05-30] MEDS ORDERED: RT-ALBUTEROL SULF 2.5 MG/3 ML PRE-MIX VIAL INH ONE (11:00)
[2017-05-30] MEDS ORDERED: ONDANSETRON 4 MG/2 ML (SDV) Z0FRAN IVP PRN (11:00)
[2017-05-30] MEDS ORDERED: morphine INJ 10 MG/ML 1ML (SYR OR VIAL) IVP PRN (11:00)
[2017-05-30] MEDS ORDERED: SULF1TAB35 PO (11:31)
--- NOTE | 2017-05-30 11:34 | Discharge Instructions ---
Discharge [facility] Discharge Medications New, Converted or Re-Newed RX: Transmitted to Pharmacy New Medications: Sulfamethoxazole/Trimethoprim (Bactrim Ds Tablet) 1 Each Tablet 1 TAB PO BID WITH MEALS, #20 TAB Continued Medications: Amlodipine Besylate (Amlodipine Besylate) 5 Mg Tablet 5 MG PO DAILY, TAB Atorvastatin Calcium (Atorvastatin Calcium) 10 Mg Tablet 10 MG PO DAILY, TAB Celecoxib (Celebrex) 200 Mg Capsule 200 MG PO DAILY, CAP Citalopram Hydrobromide (Citalopram HBr) 20 Mg Tablet 20 MG PO DAILY, TAB Cyclobenzaprine HCl (Cyclobenzaprine HCl) 10 Mg Tablet 10 MG PO TID PRN for MUSCLE SPASMS, TAB Famotidine (Acid Control) 20 Mg Tablet 20 MG PO DAILY, TAB Gabapentin (Gabapentin) 300 Mg Capsule 300 MG PO DAILY, CAP Sildenafil Citrate (Viagra) 50 Mg Tablet 100 MG PO DAILY PRN for ED, TAB TAKES 2 (50MG) TABLETS Patient Instructions Goal/Follow Up Appt: You have a followup appt with Dr King on June 04 @ 920 AM You will then continue to see Jazmin Cabral after this appt Return to The Hospital For: Increase in pain Shortness of breath Chest pain Unable to tolerate antibioitics Activity & Diet Discharge Diet: No Restrictions Activity as Tolerated: Yes Copy Copies To 1: [facility] ABRIL Mathur MD May 30, 2017 11:33
[2017-05-30] MEDS: FAMOTIDINE 20 MG (PEPCID) TABLET PO SCH (12:12)
[2017-05-30] MEDS: GABAPENTIN 300 MG (NEURONTIN) CAP PO SCH (12:12)
[2017-05-30] MEDS: HYDROcodone/APAP 5 MG/325 MG (LORTAB) TAB PO PRN (15:25)
--- NOTE | 2017-05-30 19:23 | Progress Note (SOAP) ---
Subjective Subjective/Events-last exam Patient doing well this AM. On oxygen after surgery for I&D. Patient vomited during ET tube placement. Will watch for concerns of aspiration. Review of Systems Date Seen by Provider: May 30, 2017 Time Seen by Provider: 15:23 General: No Chills Pulmonary: Dyspnea Cardiovascular: No: Chest Pain, Palpitations Gastrointestinal: No: Abdominal Pain Objective Exam Last Set of Vital Signs Vital Signs Date Time Temp Pulse Resp B/P (MAP) Pulse Ox O2 Delivery O2 Flow Rate FiO2 05/30/17 16:11 97.3 98 20 115/72 94 Room Air Capillary Refill : Less Than 3 Seconds I&O Bad tableGeneral: Alert, Oriented X3 Lungs: Clear to Auscultation, Normal Air Movement Heart: Regular Rate, No Murmurs Skin: Other (Wound packed and dressed ) Neuro: Normal Speech Psych/Mental Status: Mental Status NL, Mood NL Results/Procedures Lab Laboratory Tests 05/30/17 05:14: White Blood Count 21.5H, Red Blood Count 4.28L, Hemoglobin 13.0L, Hematocrit 37L , Mean Corpuscular Volume 87, Mean Corpuscular Hemoglobin 30, Mean Corpuscular Hemoglobin Concent 35, Red Cell Distribution Width 13.8, Platelet Count 280, Mean Platelet Volume 10.6H, Neutrophils (%) (Auto) 95H, Lymphocytes (%) (Auto) 3L, Monocytes (%) (Auto) 2, Eosinophils (%) (Auto) 0, Basophils (%) (Auto) 0, Neutrophils # (Auto) 20.4H, Lymphocytes # (Auto) 0.6L, Monocytes # (Auto) 0.5, Eosinophils # (Auto) 0.0, Basophils # (Auto) 0.0, Neutrophils % (Manual) 94, Lymphocytes % (Manual) 3, Monocytes % (Manual) 1, Eosinophils % (Manual) 0, Basophils % (Manual) 0, Band Neutrophils 2, Anisocytosis SLIGHT, Sodium Level 136, Potassium Level 3.9, Chloride Level 105, Carbon Dioxide Level 21, Anion Gap 10, Blood Urea Nitrogen 32H, Creatinine 0.71, Estimat Glomerular Filtration Rate > 60, BUN/Creatinine Ratio 45, Glucose Level 167H, Calcium Level 9.2, Total Bilirubin 0.6, Aspartate Amino Transf (AST/SGOT) 13, Alanine Aminotransferase (ALT/SGPT) 17, Alkaline Phosphatase 103, Total Protein 6.8, Albumin 3.6, Triglycerides Level 83, Cholesterol Level 140, LDL Cholesterol Direct 76, VLDL Cholesterol 17, HDL Cholesterol 52 Microbiology 05/28/17 Blood Culture - Preliminary, Resulted No growth 05/29/17 MRSA Screen - Final, Complete MRSA not isolated Radiology Date of Exam: 05/28/17 CHEST 1 VIEW, AP/PA ONLY INDICATION: Possible spider bite, infection. FINDINGS: The lungs are clear. The heart and vessels normal. There is no effusion or pneumothorax. IMPRESSION: Negative. Assessment/Plan Assessment/Plan Plan 56 yo M that presented with left axillary cellulitis with associated abscess Plan Left axillary Cellulitis with abscess s/p I&D today - Motrin and tylenol for pain control - Surgery with Dr Lyon today Atypical Chest pain: Resolved - ASA given - ECG and CE normal HTN - Will restart home medications GERD - Restarted home H2 skyla Oxygen requirement - Concerns for aspiration prior to surgery, will watch overnight FEN: Cardiac diet DVT: SCDs Dispo: Watch overnight due to risk of aspiration, plan to d/c home tomorrow Diagnosis/Problems: Clinical Quality Measures DVT/VTE Risk/Contraindication: Risk Factor Score Per Nursin RFS Level Per Nursing on Admit: 4+=Very High ABRIL RODGERS MD May 30, 2017 19:22
[2017-05-30] MEDS: FAMOTIDINE 20MG/2ML IV (PEPCID) IVP PRN (23:28)
[2017-05-31] MEDS: HYDROcodone/APAP 5 MG/325 MG (LORTAB) TAB PO PRN (03:23)
[2017-05-31] MEDS: diphenhydrAMINE 50 MG/ML INJ (BENADRYL) IV PRN (03:50)
[2017-05-31 05:15] LABS: BASOPHILS % (AUTO) 0 % (0-10); EOSINOPHILS % (AUTO) 0 % (0-10); LYMPHOCYTES # (AUTO) 0.9 X 10^3 (1.0-4.0); LYMPHOCYTES % (AUTO) 6 % (12-44); MEAN CORPUSCULAR HEMOGLOBIN 31 PG (25-34); MEAN CORPUSCULAR HGB CONC 35 G/DL (32-36); MEAN CORPUSCULAR VOLUME 89 FL (80-99); MONOCYTES # (AUTO) 0.8 X 10^3 (0.0-1.0); MONOCYTES % (AUTO) 6 % (0-12); NEUTROPHILS # (AUTO) 12.5 X 10^3 (1.8-7.8); NEUTROPHILS % (AUTO) 88 % (42-75); PLATELET COUNT 242 10^3/uL (130-400); RED BLOOD COUNT 3.45 10^6/uL (4.35-5.85); RED CELL DISTRIBUTION WIDTH 13.9 % (10.0-14.5); WHITE BLOOD COUNT 14.1 10^3/uL (4.3-11.0)
[2017-05-31 05:26] VITALS: BP 129/83
[2017-05-31] MEDS: TRIM/SULFAMETH 160/800 (SEPTRA DS) TAB PO SCH (06:09)
[2017-05-31 06:20] LABS: ANION GAP 11 MMOL/L (5-14); BLOOD UREA NITROGEN 26 MG/DL (7-18); BUN/CREATININE RATIO 42; CALCIUM 7.8 MG/DL (8.5-10.1); CARBON DIOXIDE 22 MMOL/L (21-32); CHLORIDE 103 MMOL/L (98-107); CREATININE SERUM 0.62 MG/DL (0.60-1.30); GFR ESTIMATED > 60; GLUCOSE 101 MG/DL (70-105); POTASSIUM 4.1 MMOL/L (3.6-5.0); SODIUM 136 MMOL/L (135-145)
[2017-05-31] MEDS: NS IV 1000 ML 1,000 ML IV SCH (08:43)
[2017-05-31 08:56] VITALS: BP 157/86
[2017-05-31] MEDS: GABAPENTIN 300 MG (NEURONTIN) CAP PO SCH (09:00)
[2017-05-31] MEDS: FAMOTIDINE 20 MG (PEPCID) TABLET PO SCH (09:01)
[2017-05-31] MEDS: ATORVASTATIN 10 MG (LIPITOR) TABLET PO SCH (09:01)
[2017-05-31] MEDS: amLODIPine 5 MG (NORVASC) TAB PO SCH (09:01)
[2017-05-31] MEDS ORDERED: FAMOTIDINE 20 MG (PEPCID) TABLET PO PRN (09:45)
--- NOTE | 2017-05-31 10:39 | Progress Note ---
Subjective Time Seen by Provider: 09:41 Subjective/Events-last exam Pt seen and examined, states he thinks he feels better. Pain controlled with meds, denies SOB or trouble breathing. Review of Systems Pulmonary: No Dyspnea, No Pleuritic Chest Pain Cardiovascular: No: Chest Pain Gastrointestinal: No: Nausea, Vomiting Objective Exam Vital Signs Date Time Temp Pulse Resp B/P (MAP) Pulse Ox O2 Delivery O2 Flow Rate FiO2 05/31/17 08:56 99.1 119 22 157/86 95 Room Air 05/31/17 07:38 86 05/31/17 05:26 96.7 74 20 129/83 92 Room Air 05/30/17 23:58 98.0 98 20 139/75 95 Room Air 05/30/17 20:27 96.3 86 20 145/72 96 Room Air 05/30/17 20:10 Room Air 05/30/17 16:11 97.3 98 20 115/72 94 Room Air 05/30/17 13:00 96 05/30/17 12:00 97.1 101 26 133/79 94 Room Air I & O 05/31/17 07:00 Intake Total 2340 ml Output Total 1665 ml Balance 675 ml Capillary Refill : Less Than 3 Seconds General Appearance: No Apparent Distress, WD/WN, Obese Respiratory: No Accessory Muscle Use, No Respiratory Distress Cardiovascular: Regular Rate, Rhythm, No Murmur Skin: Other (incision has decreased erythema, no purulent drainage, packing still in place) Results Lab Laboratory Tests 05/31/17 04:26: White Blood Count 14.1H, Red Blood Count 3.45L, Hemoglobin 10.6L, Hematocrit 31L , Mean Corpuscular Volume 89, Mean Corpuscular Hemoglobin 31, Mean Corpuscular Hemoglobin Concent 35, Red Cell Distribution Width 13.9, Platelet Count 242, Mean Platelet Volume 11.0H, Neutrophils (%) (Auto) 88H, Lymphocytes (%) (Auto) 6L, Monocytes (%) (Auto) 6, Eosinophils (%) (Auto) 0, Basophils (%) (Auto) 0, Neutrophils # (Auto) 12.5H, Lymphocytes # (Auto) 0.9L, Monocytes # (Auto) 0.8, Eosinophils # (Auto) 0.0, Basophils # (Auto) 0.0, Sodium Level 136, Potassium Level 4.1, Chloride Level 103, Carbon Dioxide Level 22, Anion Gap 11, Blood Urea Nitrogen 26H, Creatinine 0.62, Estimat Glomerular Filtration Rate > 60, BUN /Creatinine Ratio 42, Glucose Level 101, Calcium Level 7.8L Microbiology 05/28/17 Blood Culture - Preliminary, Resulted No growth 05/29/17 MRSA Screen - Final, Complete MRSA not isolated Assessment/Plan Assessment/Plan Assessment/Plan 1. Left Axillary Cellulitis/Abscess - S/P I&D, change outer dressing, leave packing in until Saturday and will remove and replace in office. Continue PO ABX 2. Hypokalemia 3. HTN Pt states he did not eat anything after midnight prior to surgery, during induction of anesthesia pt vomited and probably aspirated. Kept over night and seems to be doing fine today; respiratory orantes. D/C home per primary care. Clinical Quality Measures DVT/VTE Risk/Contraindication: Risk Factor Score Per Nursin RFS Level Per Nursing on Admit: 4+=Very High CLEOPATRA ZAVALA DO May 31, 2017 10:39
--- NOTE | 2017-05-31 10:53 | Discharge Summary ---
Diagnosis/Chief Complaint Date of Admission May 29, 2017 at 01:35 Date of Discharge May 31, 2017 Admission Diagnosis Admission Diagnosis Left Axillary cellulitis with abscess Hypokalemia Atypical Chest pain HTN GERD Discharge Diagnosis Left Axillary cellulitis with abscess: Patient had small I&D in ER. Upon arriving on the floor still had induration and fluctuance. General surgery was consulted and took patient to surgery for debridement and packing. Patient is to continue antibiotics. Hypokalemia: Replaced and resolved. Did not show any ECG changes. Atypical Chest pain: Resolved with ASA. CE neg x 1 HTN: Patient was restarted on home medications. No changes GERD: Patient restarted on home medications. Chief Complaint/HPI Chief Complaint/HPI 56 yo M that presented to ER after he states that he was bit by a spider. States that he did not see the spider. States that the area turned red and now is very tender and is draining a small amount of pus. He has not had anything like this in the past. States that it hurts when he moves his arm around. Denies any systemic symptoms like fever, chills or shortness of breath. Just prior to coming up to the floor patient complained of chest pain. ECG was normal. Patient denied shortness of breath. The pain went away in about 10 secs. It has not occurred again. States that he was very anxious about getting admitted. Denies racing heart or numbness or tingling in arm. Denies previous CAD. Discharge Summary-Simple/Stand Procedures I&D on wound Consultations Dr Lyon: General Surgery Discharge Physical Examination Allergies: Coded Allergies: codeine (Verified Allergy, Unknown, Pt has received Lortab & morphine in the past, 05/30/17) Vitals & I&Os Vital Sign - Last 12Hours Date Time Temp Pulse Resp B/P (MAP) Pulse Ox O2 Delivery O2 Flow Rate FiO2 05/31/17 08:56 99.1 119 22 157/86 95 Room Air Intake and Output 05/31/17 00:00 Intake Total 1840 ml Output Total 1015 ml Balance 825 ml General Appearance: Alert, Oriented X3, Cooperative HEENT: Mucous Memb Moist/Abbott Respiratory: Clear to Auscultation, Normal Air Movement Cardiovascular: Regular Rate, No Murmurs Abdominal: Normal Bowel Sounds, Soft, No Tenderness Extremities: No Edema, No Tenderness/Swelling Skin: Other (Wound dressed and packed) Neuro: Strength at 5/5 X4 Ext, Sensation Intact, Cranial Nerves 3-12 NL Psych/Mental Status: Mental Status NL Hospital Course See final discharge diagnosis. Radiology Reviewed Date of Exam: 05/28/17 CHEST 1 VIEW, AP/PA ONLY INDICATION: Possible spider bite, infection. FINDINGS: The lungs are clear. The heart and vessels normal. There is no effusion or pneumothorax. IMPRESSION: Negative. Discussion & Recommendations See D/C diagnosis Discharge Condition at discharge Stable Instructions to patient/family Please see electonic discharge instructions given to patient. Discharge Medications Reviewed and agree with Discharge Medication list on patient's Discharge Instruction sheet Clinical Quality Measures DVT/VTE Risk/Contraindication: Risk Factor Score Per Nursin RFS Level Per Nursing on Admit: 4+=Very High Copy Copies To 1: Jazmin JUNG HOLLY R MD May 31, 2017 10:53
--- NOTE | 2017-05-31 10:58 | Anesthesia-General Post-Op ---
General Patient Condition Mental Status/LOC: Same as Preop Cardiovascular: Satisfactory Nausea/Vomiting: Absent Respiratory: Satisfactory Pain: Controlled Complications: Absent Post Op Complications Complications None Follow Up Care/Instructions Patient Instructions None needed. Anesthesia/Patient Condition Patient Condition Patient is doing well, no complaints, stable vital signs, no apparent adverse anesthesia problems. No complications reported per nursing. CYNTHIA ARRIOLA CRNA May 31, 2017 10:58
[2017-05-31 11:45] VITALS: BP 157/86
--- NOTE | 2017-05-31 16:41 | OPERATIVE REPORT ---
PROCEDURE PHYSICIAN: CLEOPATRA LYON DATE OF PROCEDURE: 05/29/2017 PREOPERATIVE DIAGNOSIS: Left axillary cellulitis and abscess. POSTOPERATIVE DIAGNOSIS: Left axillary cellulitis and abscess. PROCEDURE: Incision and drainage with debridement and packing of left axillary abscess. SURGEON: Dr. Lyon GENERAL DUTY NURSE: None. ANESTHESIA: General endotracheal tube. SPECIMEN: Fluid culture. BLOOD LOSS: Less than 30 mL, packed with 1 inch iodoform packing. INDICATION FOR THE PROCEDURE: The patient is a 56-year-old male who has a large cellulitis and abscess in the left axilla not really improving with p.o. antibiotics. FINDINGS: The patient had a cellulitis abscess, very minimal purulent fluid, did feel like it tracked down all the way to the muscle. PROCEDURE NOTE: After informed consent was obtained, the patient was brought to the operating room. He was placed on table in supine position. After intubation, he was sterilely prepped and draped in normal fashion. I made an incision with a number 15 blade in the left axilla through the previous incision, down through the skin into subcutaneous tissue, very minimal fluid out; however, very easily dissected down to the fascia onto the muscle and through the fascia right at the left ribs. Bleeding was contained using Bovie electrocautery. I broke up any loculations or tissue. I did not really see any necrotic tissue; however, was easily dissected with finger fracture. This usually indicates some cellulitis and inflammation and edema secondary to abscess. At this point I copiously irrigated with normal saline and then packed with 1 inch iodoform packing. They then cleaned and dried and pressure dressing placed. The patient tolerated the procedure and he was then transferred to recovery room in stable condition. Sponge, instrument and needle count correct at the end of the case. Job ID: [id number] Dictated Date: 05/30/2017 16:00:06 Speech Pathologist Date: 05/31/2017 16:25:59 / tbk
[2017-06-03] MEDS ORDERED: HYDR-3816 PO (09:33)
[2017-06-03] MEDS ORDERED: PRED10TA22 PO (09:35)
--- OUTSIDE RECORDS SUMMARY | 2017-06-05 20:48 | XMS REPORT ---
Author Author BÁRBARA BHANDARI Organization [employer] Address Unknown Phone Unavailable Care Team Providers Care Front Office Director Name Role Phone BÁRBARA BHANDARI CP Unavailable Allergies No Known Allergies Problems Problem Type Condition ICD-9 Code Onset Dates Condition Status Problem Dermatophytosis of nail 110.1 Active Problem Other specified disease of nail 703.8 Active Problem Unspecified hereditary and idiopathic peripheral neuropathy 356.9 Active Problem Hallux valgus (acquired) 735.0 Active Problem Hallux rigidus 735.2 Active Problem Pain in soft tissues of limb 729.5 Active Problem Unspecified arthropathy, site unspecified 716.90 Active Problem Disturbance of skin sensation 782.0 Active Problem Sting of hornets, wasps, and bees as the cause of poisoning and toxic reactions E905.3 Active Problem Lumbago 724.2 Active Problem Bunion 727.1 Active Problem TD DX V06.5 Active Problem Unspecified hemorrhoids without mention of complication 455.6 Active Problem Open wound of finger(s), without mention of complication 883.0 Active Problem Ingrowing nail 703.0 Active Problem Edema 782.3 Active Medications Medication Code System Code Instructions Start Date End Date Status Dosage Viagra [facility] [address]-77 100 MG June 04, 2013 1 tablet by Oral route 1 time per day Results No Known Results Summary Purpose eClinicalWorks Submission
--- OUTSIDE RECORDS SUMMARY | 2017-06-05 20:48 | XMS REPORT ---
Author Author CLIFF MARIN [facility] eClinical[employer] Address Unknown Phone Unavailable Care Team Providers Care Spinning Mule Operator Name Role Phone CLIFF MARIN CP Unavailable Allergies No Known Allergies Problems Problem Type Condition Code Onset Dates Condition Status Problem Marijuana abuse F12.10 Active Problem Elevated serum creatinine R79.89 Active Problem 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 Active Problem Candidal dermatitis B37.2 Active Problem Erectile dysfunction, unspecified erectile dysfunction type N52.9 Active Problem Drug-induced erectile dysfunction N52.2 Active Problem Anger R45.4 Active Problem Idiopathic peripheral neuropathy G60.9 Active Problem Wheezing R06.2 Active Problem Cannabis dependence, uncomplicated F12.20 Active Problem Hyperlipemia E78.5 Active Problem Gastroesophageal reflux disease with esophagitis K21.0 Active Problem Other stimulant dependence, 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
--- OUTSIDE RECORDS SUMMARY | 2017-06-05 20:49 | XMS REPORT ---
Author JAYME Boyd [facility] eClinical[employer] Address Unknown Phone Unavailable Care Team Providers Care Borematic Operator Name Role Phone JAYME ESPARZA CP Unavailable Allergies, Adverse Reactions, Alerts Substance Reaction Event Type Codeine Sulfate stomach problems Drug Allergy Problems Problem Type Condition Code Onset Dates Condition Status Problem Anxiety disorder, unspecified F41.9 Active Assessment Acute midline low back pain without sciatica M54.5 Active Problem Unspecified mood [affective] disorder F39 Active Problem Low back pain M54.5 Active Problem Marijuana abuse F12.10 Active Problem Elevated serum creatinine R79.89 Active Problem 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 Active Problem Candidal dermatitis B37.2 Active Problem Drug-induced erectile dysfunction N52.2 Active Problem Erectile dysfunction, unspecified erectile dysfunction type N52.9 Active Problem Anger R45.4 Active Problem Wheezing R06.2 Active Problem Idiopathic peripheral neuropathy G60.9 Active Problem Cannabis dependence, uncomplicated F12.20 Active [...] of cervical spine surgery Z98.89 Active Problem Essential hypertension I10 Active Medications Medication Code System Code Instructions Start Date End Date Status Dosage Norvasc [facility] [address]-90 5 mg Orally Once a day, voucher 1st fill only Dec 20, 2015 1 tablet PredniSONE [facility] [address]-54 20 mg Orally Once a day, voucher Oct 05, 2016 Oct 10, 2016 2 tablets Diclofenac Sodium ER [facility] [address]-64 100 MG Orally Once a day Oct 05, 2016 Nov 04, 2016 1 tablet with food or milk Neurontin [facility] 15471964425 300 MG Orally 2 times a day 1 capsule Proventil HFA [facility] [address]-96 108 (90 Base) MCG/ACT Inhalation every 4 hrs Jul 05, 2016 2 puffs as needed Viagra [facility] [address]-44 50 MG Orally Once a day as needed 2 tablets Atorvastatin Calcium [facility] [address]-02 10 mg Orally Once a day, voucher 1st fill only 1 tablet Cyclobenzaprine HCl [facility] [address]-24 10 mg Orally Three times a day SepDec 19, 2016 1 tablet Celexa [facility] [address]-87 20 MG Orally Once a day 1 tablet Du Pont [facility] [address]-43 7.5-325 MG Orally every 6 hrs Sep 20, 2016 1 tablet as needed Procedures Procedure Coding System Code Date TORADOL (IM) 60 MG/2ML (UP TO 15 MG) CPT-4 J1885 Oct 05, 2016 THER/PROPH/DIAG INJ, SC/IM CPT-4 17694 Oct 05, 2016 Office Visit, Est Pt., Level 3 CPT-4 83538 Oct 05, 2016 Vital Signs Date/Time: Oct 05, 2016 Cardiac Monitoring Heart Rate 88 bpm Weight 207.8 lbs Height 66 in BMI 33.54 Index Blood Pressure Diastolic 80 mmHg Blood Pressure Systolic 120 mmHg Results No Known Results Summary Purpose eClinicalWorks Submission
--- OUTSIDE RECORDS SUMMARY | 2017-06-05 20:49 | XMS REPORT ---
Author JOEL Cordova [employer] Address Unknown Phone Unavailable Care Team Providers Care Blanking Press Operator Name Role Phone JOEL BUSH CP Unavailable Allergies, Adverse Reactions, Alerts Substance Reaction Event Type Codeine Sulfate stomach problems Drug Allergy Problems Problem Type Condition Code Onset Dates Condition Status Problem Low back pain M54.5 Active Problem Anger R45.4 Active Problem Idiopathic peripheral neuropathy G60.9 Active Problem Hx of cervical spine surgery Z98.89 Active Problem Pain in right hand M79.641 Active Problem Essential hypertension I10 Active Problem Pain in right foot M79.671 Active Problem Erectile dysfunction, unspecified erectile dysfunction type N52.9 Active Problem Pain of left hand M79.642 Active Problem Pain in left foot M79.672 Active Assessment Pain in right foot M79.671 Active Assessment Pain in left foot M79.672 Active Assessment Anger R45.4 Active Assessment Erectile dysfunction, unspecified erectile dysfunction type N52.9 Active Assessment Hx of cervical spine surgery Z98.89 Active Assessment Low back pain M54.5 Active Assessment Pain of left hand M79.642 Active Assessment Idiopathic peripheral neuropathy G60.9 Active Assessment Pain in right hand M79.641 Active Assessment Essential hypertension I10 Active Medications Medication Code System Code Instructions Start Date End Date Status Dosage Diclofenac Sodium [facility] [address]-86 75 MG Orally Twice a day 1 tablet Lisinopril-Hydrochlorothiazide [facility] [address]-15 10-12.5 MG Orally Once a day June 08, [address] [facility] [address]-38 100 MG Orally Once a day Oct 18, 2015 Nov 17, 2015 1 tablet as needed Cyclobenzaprine HCl [facility] [address]-00 10 MG Orally 2 times a day TAKE ONE TABLET BY MOUTH THREE TIMES DAILY FOR MUSCLE SPASM Procedures Procedure Coding System Code Date Office Visit, Est Pt., Level 3 CPT-4 10216 Oct 18, 2015 Vital Signs Date/Time: Oct 18, 2015 Temperature 96.1 F Weight 192.1 lbs Height 66 in BMI 31.00 Index Blood Pressure Diastolic 90 mmHg Blood Pressure Systolic 170 mmHg Cardiac Monitoring Heart Rate 88 bpm Results No Known Results Summary Purpose eClinicalWorks Submission
--- OUTSIDE RECORDS SUMMARY | 2017-06-05 20:49 | XMS REPORT ---
Author JOEL Cordova [employer] Address Unknown Phone Unavailable Care Team Providers Care Outsole Tacker Name Role Phone JOEL BUSH CP Unavailable Allergies, Adverse Reactions, Alerts Substance Reaction Event Type Codeine Sulfate stomach problems Drug Allergy Problems Problem Type Condition Code Onset Dates Condition Status Problem Anger R45.4 Active Problem Pain in right foot M79.671 Active Problem Erectile dysfunction, unspecified erectile dysfunction type N52.9 Active Problem Anxiety associated with depression F41.8 Active Problem Essential hypertension I10 Active Problem Mixed hyperlipidemia E78.2 Active Problem Pain of left hand M79.642 Active Problem Pain in left foot M79.672 Active Problem Hx of cervical spine surgery Z98.89 Active Problem Pain in right hand M79.641 Active Assessment Anger R45.4 Active Assessment Erectile dysfunction, unspecified erectile dysfunction type N52.9 Active Assessment Anxiety associated with depression F41.8 Active Assessment Mixed hyperlipidemia E78.2 Active Assessment Idiopathic peripheral neuropathy G60.9 Active Assessment Essential hypertension I10 Active Assessment Hx of cervical spine surgery Z98.89 Active Problem Low back pain M54.5 Active Assessment Low back pain M54.5 Active Problem Idiopathic peripheral neuropathy G60.9 Active Medications Medication Code System Code Instructions Start Date End Date Status Dosage Cyclobenzaprine HCl [facility] [address]-35 10 MG Orally 2 times a day 1 tablet Lisinopril-Hydrochlorothiazide [facility] [address]-73 10-12.5 MG Orally Once a day June 08, 2015 1 tablet Diclofenac Sodium [facility] [address]-52 75 MG Orally Twice a day 1 tablet Viagra [facility] [address]-48 100 MG Orally Once a day Oct 18, 2015 Nov 17, 2015 1 tablet as needed Celexa [facility] [address]-32 20 MG Orally Once a day Nov 08, 2015 1 tablet Atorvastatin Calcium [facility] [address]-50 10 MG Orally Once a day Oct 26, 2015 1 tablet Procedures Procedure Coding System Code Date Office Visit, Est Pt., Level 3 CPT-4 14535 Nov 08, 2015 Vital Signs Date/Time: Nov 08, 2015 Temperature 98.8 F Weight 192.0 lbs Height 66 in BMI 30.99 Index Blood Pressure Diastolic 90 mmHg Blood Pressure Systolic 130 mmHg Cardiac Monitoring Heart Rate 80 bpm Results No Known Results Summary Purpose eClinicalWorks Submission
--- OUTSIDE RECORDS SUMMARY | 2017-06-05 20:49 | XMS REPORT ---
Author KRISTEL Alberto Organization [employer] Address Unknown Phone Unavailable Care Team Providers Care Chemical Sales Representative Name Role Phone KRISTEL HINOJOSA CP Unavailable Allergies No Known Allergies Problems Problem Type Condition Code Onset Dates Condition Status Problem Dermatophytosis [...] 703.0 Active Problem Edema 782.3 Active Medications No Known Medications Results No Known Results Summary Purpose eClinicalWorks Submission
--- OUTSIDE RECORDS SUMMARY | 2017-06-05 20:49 | XMS REPORT ---
Author Author JOEL BUSH Organization [employer] Address Unknown Phone Unavailable Care Team Providers Care Veneer Jointer Offbearer Name Role Phone JOEL BUSH CP Unavailable Allergies No Known Allergies Problems [...] Problem Pain in left foot M79.672 Active Medications Medication Code System Code Instructions Start Date End Date Status Dosage Cyclobenzaprine HCl [facility] [address]-47 10 MG Orally 2 times a day 1 tablet Results No Known Results Summary Purpose eClinicalWorks Submission
--- OUTSIDE RECORDS SUMMARY | 2017-06-05 20:49 | XMS REPORT ---
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 Assessment Mixed hyperlipidemia E78.2 Active Assessment Idiopathic peripheral neuropathy G60.9 Active Assessment Erectile dysfunction, unspecified erectile dysfunction type N52.9 Active Assessment Essential hypertension I10 Active Assessment Candidal dermatitis B37.2 Active Problem Anxiety disorder, unspecified F41.9 Active Assessment Wheezing R06.2 Active Problem Unspecified mood [affective] disorder F39 [...] Instructions Start Date End Date Status Dosage Proventil HFA [facility] [address]-72 108 (90 Base) MCG/ACT Inhalation every 4 hrs Jul 05, 2016 2 puffs as needed Norvasc [facility] [address]-09 5 mg Orally Once a day Dec 20, 2015 1 tablet PredniSONE [facility] [address]-79 10 mg Orally twice a day Jul 05, 2016Jun 1 tablet Ketoconazole [facility] [address]-20 2 % Externally Twice a day Jul 05, 2016 as directed Atorvastatin Calcium [facility] [address]-95 10 mg Orally Once a day 1 tablet Celexa [facility] [address]-75 20 MG Orally Once a day 1 tablet Diclofenac Sodium [facility] [address]-43 75 MG Orally Once a day Jan 03, 2016 1 tablet Viagra [facility] [address]-90 50 MG Orally Once a day as needed 2 tablets Neurontin [facility] 49281358299 300 MG Orally 2 times a day 1 capsule Procedures Procedure Coding System Code Date COMPREHEN METABOLIC PANEL CPT-4 39374 Jul 05, 2016 CHEST X-RAY CPT-4 54264 Jul 05, 2016 COMPLETE CBC W/AUTO DIFF WBC CPT-4 97797 Jul 05, 2016 VENIPUNCT, ROUTINE* CPT-4 49133 Jul 05, 2016 Office Visit, Est Pt., Level 4 CPT-4 07915 Jul 05, 2016 Vital Signs Date/Time: Jul 05, 2016 Cardiac Monitoring Heart Rate 88 bpm Weight 199.8 lbs Height 66 in BMI 32.25 Index Blood Pressure Diastolic 86 mmHg Blood Pressure Systolic 134 mmHg Results No Known Results Summary Purpose eClinicalWorks Submission
--- OUTSIDE RECORDS SUMMARY | 2017-06-05 20:49 | XMS REPORT ---
Author Author BÁRBARA BHANDARI Organization [employer] Address Unknown Phone Unavailable Care Team Providers Care Cytopathology Technologist Name Role Phone BÁRBARA BHANDARI CP Unavailable [...] Date End Date Status Dosage Diclofenac Sodium [facility] [address]-48 75 MG Orally Twice a day Nov 15, 2014 1 tablet Results No Known Results Summary Purpose eClinicalWorks Submission
--- OUTSIDE RECORDS SUMMARY | 2017-06-05 20:49 | XMS REPORT ---
Author Author JOEL BUSH Organization eClinicalWorks Address Unknown Phone Unavailable Care Team Providers Care Physician Allergist Immunologist Name Role Phone JOEL BUSH CP Unavailable Allergies No Known Allergies Problems Problem Type Condition Code Onset Dates Condition Status Problem Low back pain M54.5 Active Problem Anger R45.4 Active Problem Idiopathic peripheral neuropathy G60.9 Active Assessment Essential hypertension I10 Active Problem Hx of cervical spine surgery Z98.89 Active Problem Pain in right hand M79.641 Active Problem Essential hypertension I10 Active Problem Pain in right foot M79.671 Active Problem Erectile dysfunction, unspecified erectile dysfunction type N52.9 Active Problem Pain of left hand M79.642 Active Problem Pain in left foot M79.672 Active Medications No Known Medications Procedures Procedure Coding System Code Date ASSAY THYROID STIM HORMONE CPT-4 16424 Oct 25, 2015 COMPREHEN METABOLIC PANEL CPT-4 49908 Oct 25, 2015 COMPLETE CBC W/AUTO DIFF WBC CPT-4 32159 Oct 25, 2015 VENIPUNCT, ROUTINE* CPT-4 28283 Oct 25, 2015 LIPID PANEL CPT-4 18543 Oct 25, 2015 Results Name Result Date Reference Range Unit Abnormality Flag ROUTINE VENIPUNCTURE Summary Purpose eClinicalWorks Submission
--- OUTSIDE RECORDS SUMMARY | 2017-06-05 20:49 | XMS REPORT ---
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 Problem Marijuana abuse F12.10 Active Problem Unspecified mood [affective] disorder F39 Active Problem Elevated serum creatinine R79.89 Active Problem 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 Active Problem Anger R45.4 Active Problem Erectile dysfunction, unspecified erectile dysfunction type N52.9 Active Problem Low back pain M54.5 Active Problem Idiopathic peripheral neuropathy G60.9 Active Problem Pain of left hand M79.642 Active Problem Pain in right hand M79.641 Active Problem Pain in right foot M79.671 Active Problem Hx of cervical spine surgery Z98.89 Active Problem Pain in left foot M79.672 Active Problem Essential hypertension I10 Active Medications Medication Code System Code Instructions Start Date End Date Status Dosage [facility] [address]-37 5 MG Orally Once a day Dec 20, 2015 1 tablet Results No Known Results Summary Purpose eClinicalWorks Submission
--- OUTSIDE RECORDS SUMMARY | 2017-06-05 20:49 | XMS REPORT ---
Author Author JOEL BUSH Organization [employer] Address Unknown Phone Unavailable Care Team Providers Care Foam [employer] M[employer] Name Role Phone JOEL BUSH CP Unavailable Allergies No Known Allergies Problems Problem Type Condition Code Onset Dates Condition Status Problem Low back pain M54.5 Active Problem Anger R45.4 Active Problem Idiopathic peripheral neuropathy G60.9 Active Assessment Hyperlipemia E78.5 Active Problem Hx of cervical spine surgery Z98.89 Active Problem Pain in right hand M79.641 Active Problem Essential hypertension I10 Active Problem Pain in right foot M79.671 Active Problem Erectile dysfunction, unspecified erectile dysfunction type N52.9 Active Problem Pain of left hand M79.642 Active Problem Pain in left foot M79.672 Active Medications Medication Code System Code Instructions Start Date End Date Status Dosage Atorvastatin Calcium [facility] [address]-01 10 MG Orally Once a day Oct 26, 2015 1 tablet Results No Known Results Summary Purpose [employer] Submission
--- OUTSIDE RECORDS SUMMARY | 2017-06-05 20:50 | XMS REPORT ---
Author Author JOEL BUSH Organization [employer] Address Unknown Phone Unavailable Care Team Providers Care Posting Specialist Name Role Phone JOEL BUSH CP Unavailable [...] Active Problem Essential hypertension I10 Active Medications No Known Medications Results No Known Results Summary Purpose [employer] Submission
--- OUTSIDE RECORDS SUMMARY | 2017-06-05 20:50 | XMS REPORT ---
Author JAYME Boyd [facility] [employer] Address Unknown Phone Unavailable Care Team Providers Care Human Resources Benefits Administrator Name Role Phone JAYME ESPARZA CP Unavailable Allergies, Adverse Reactions, Alerts Substance Reaction Event Type Codeine Sulfate stomach problems Drug Allergy Problems Problem Type Condition Code Onset Dates Condition Status Problem Anxiety disorder, unspecified F41.9 Active Assessment Acute bilateral low back pain without sciatica M54.5 Active [...] Instructions Start Date End Date Status Dosage PredniSONE [facility] [address]-20 20 mg Orally Once a day Sep 20, 2016 Sep 25, [address] [facility] [address]-19 108 (90 Base) MCG/ACT Inhalation every 4 hrs Jul 05, 2016 2 puffs as needed Neurontin [facility] 67364982638 300 MG Orally 2 times a day [address] [facility] [address]-27 10 mg Orally Three times a day SepDec 19, [address] [facility] [address]-07 7.5-325 MG Orally every 6 hrs Sep 20, 2016 1 tablet as needed Atorvastatin Calcium [facility] [address]-03 10 mg Orally Once a day [address] [facility] [address]-81 75 MG Orally Once a day Jan 03, [address] [facility] [address]-77 5 mg Orally Once a day Dec 20, [address] [facility] [address]-40 50 MG Orally Once a day as needed [address] [facility] [address]-56 20 MG Orally Once a day 1 tablet Procedures Procedure Coding System Code Date Office Visit, Est Pt., Level 3 CPT-4 56715 Sep 20, 2016 TORADOL (IM) 60 MG/2ML (UP TO 15 MG) CPT-4 J1885 Sep 20, 2016 MEASURE BLOOD OXYGEN LEVEL CPT-4 66289 Sep 20, 2016 THER/PROPH/DIAG INJ, SC/IM CPT-4 97976 Sep 20, 2016 Vital Signs Date/Time: Sep 20, 2016 Blood Pressure Systolic 132 mmHg Cardiac Monitoring Heart Rate 88 bpm Height 66 in Oximetry 95 % Blood Pressure Diastolic 86 mmHg Results No Known Results Summary Purpose [employer] Submission
--- OUTSIDE RECORDS SUMMARY | 2017-06-05 20:50 | XMS REPORT ---
Author Author AJAY WALSH Organization [employer] Address Unknown Phone Unavailable Care Team Providers Care [employer] Name Role Phone AJAY WALSH CP Unavailable Allergies No Known Allergies Problems Problem Type Condition Code Onset Dates Condition Status Problem Pain in right foot M79.671 Active Problem Pain of left hand M79.642 Active Problem Pain in left foot M79.672 Active Problem Anxiety disorder, unspecified F41.9 Active Problem Mixed hyperlipidemia E78.2 Active Problem Unspecified mood [affective] disorder F39 Active Problem Hx of cervical spine surgery Z98.89 Active Problem Pain in right hand M79.641 Active Problem 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
--- OUTSIDE RECORDS SUMMARY | 2017-06-05 20:52 | XMS REPORT | Continuity of Care Document ---
Author Author [facility] Address Unknown Phone Unavailable Allergies Active Description Code Type Severity Reaction Onset Reported/Identified Relationship to Patient Clinical Status Yes codeine [id number] Drug Allergy Unknown N/A 04/21/2010 Yes codeine Drug Allergy 10/12/2010 Yes codeine Drug Allergy N/A N/A 10/12/2010 Yes codeine [id number] Drug Allergy Unknown Pt has received 05/30/2017 Medications Problems Date Dx Coded Attending Type Code Diagnosis Diagnosed By 04/19/2010 Ot 780.60 04/19/2010 Ot 911.4 04/19/2010 Ot E000.8 04/19/2010 Ot E030 04/19/2010 Ot E849.0 04/19/2010 Ot E906.4 04/22/2010 Ot 682.3 04/22/2010 Ot 989.5 04/22/2010 Ot E849.0 04/22/2010 Ot E905.1 10/12/2010 BÁRBARA BHANDARI MD 728.71 Plantar Fascial Fibromatosis 10/12/2010 728.71 Plantar Fascial Fibromatosis 10/12/2010 728.71 Plantar Fascial Fibromatosis 10/12/2010 BÁRBARA BHANDARI MD 728.71 Plantar Fascial Fibromatosis 10/12/2010 IZZY KUNZ APRN R 728.71 Plantar Fascial Fibromatosis 10/12/2010 BÁRBARA BHNADARI MD 728.71 Plantar Fascial Fibromatosis 10/12/2010 KRISTEL HINOJOSA APRN R 728.71 Plantar Fascial Fibromatosis 10/12/2010 ART QUINTERO DO 728.71 Plantar Fascial Fibromatosis 10/12/2010 HOSSEIN MAYES MD 728.71 Plantar Fascial Fibromatosis 10/12/2010 ART QUINTERO DO 728.71 Plantar Fascial Fibromatosis 10/12/2010 BÁRBARA BHANDARI MD 728.71 Plantar Fascial Fibromatosis 10/12/2010 BÁRBARA BHANDARI MD.71 Plantar Fascial Fibromatosis 10/12/2010 KRISTEL HINOJOSA APRN R 728.71 Plantar Fascial Fibromatosis 10/12/2010 BÁRBARA BHANDARI MD 728.71 Plantar Fascial Fibromatosis 10/12/2010 KRISTEL HINOJOSA APRN R 728.71 Plantar Fascial Fibromatosis 10/12/2010 BÁRBARA BHANDARI MD 728.71 Plantar Fascial Fibromatosis 10/12/2010 BÁRBARA BHANDARI MD 728.71 Plantar Fascial Fibromatosis 10/12/2010 ART QUINTERO DO 728.71 Plantar Fascial Fibromatosis 12/07/2010 BÁRBARA BHANDARI MD 686.9 Unspecified Local Infection Of Skin And Subcutaneous Tissue 12/07/2010 686.9 Unspecified Local Infection Of Skin And Subcutaneous Tissue 12/07/2010 686.9 Unspecified Local Infection Of Skin And Subcutaneous Tissue 12/07/2010 BÁRBARA BHANDARI MD 686.9 Unspecified Local Infection Of Skin And Subcutaneous Tissue 12/07/2010 IZZY KUNZ APRN R 686.9 Unspecified Local Infection Of Skin And Subcutaneous Tissue 12/07/2010 BÁRBARA BHANDARI MD 686.9 Unspecified Local Infection Of Skin And Subcutaneous Tissue 12/07/2010 KRISTEL HINOJOSA APRN R 686.9 Unspecified Local Infection Of Skin And Subcutaneous Tissue 12/07/2010 ART QUINTERO DO 686.9 Unspecified Local Infection Of Skin And Subcutaneous Tissue 12/07/2010 HOSSEIN MAYES MD 686.9 Unspecified Local Infection Of Skin And Subcutaneous Tissue 12/07/2010 ART QUINTERO DO 686.9 Unspecified Local Infection Of Skin And Subcutaneous Tissue 12/07/2010 BÁRBARA BHANDARI MD 686.9 Unspecified Local Infection Of Skin And Subcutaneous Tissue 12/07/2010 BÁRBARA BHANDARI MD 686.9 Unspecified Local Infection Of Skin And Subcutaneous Tissue 12/07/2010 KRISTEL HINOJOSA APRN R 686.9 Unspecified Local Infection Of Skin And Subcutaneous Tissue 12/07/2010 BÁRBARA BHANDARI MD 686.9 Unspecified Local Infection Of Skin And Subcutaneous Tissue 12/07/2010 KRISTEL HINOJOSA APRN 686.9 Unspecified Local Infection Of Skin And Subcutaneous Tissue 12/07/2010 BÁRBARA BHANDARI MD 686.9 Unspecified Local Infection Of Skin And Subcutaneous Tissue 12/07/2010 BÁRBARA BHANDARI MD 686.9 Unspecified Local Infection Of Skin And Subcutaneous Tissue 12/07/2010 ART QUINTERO DO 686.9 Unspecified Local Infection Of Skin And Subcutaneous Tissue 05/24/2011 BÁRBARA BHANDARI MD 786.50 Unspecified Chest Pain 05/24/2011 786.50 Unspecified Chest Pain 05/24/2011 786.50 Unspecified Chest Pain 05/24/2011 BÁRBARA BHANDARI MD 786.50 Unspecified Chest Pain 05/24/2011 IZZY KUNZ APRN 786.50 Unspecified Chest Pain 05/24/2011 BÁRBARA BHANDARI MD 786.50 Unspecified Chest Pain 05/24/2011 KRISTEL HINOJOSA APRN R 786.50 Unspecified Chest Pain 05/24/2011 ART QUINTERO DO 786.50 Unspecified Chest Pain 05/24/2011 HOSSEIN MAYES MD 786.50 Unspecified Chest Pain 05/24/2011 ART QUINTERO DO 786.50 Unspecified Chest Pain 05/24/2011 BÁRBARA BHANDARI MD 786.50 Unspecified Chest Pain 05/24/2011 BÁRBARA BHANDARI MD 786.50 Unspecified Chest Pain 05/24/2011 KRISTEL HINOJOSA APRN R 786.50 Unspecified Chest Pain 05/24/2011 BÁRBARA BHANDARI MD 786.50 Unspecified Chest Pain 05/24/2011 KRISTEL HINOJOSA APRN R 786.50 Unspecified Chest Pain 05/24/2011 BÁRBARA BHANDARI MD 786.50 Unspecified Chest Pain 05/24/2011 BÁRBARA BHANDARI MD 786.50 Unspecified Chest Pain 05/24/2011 ART QUINTERO DO 786.50 Unspecified Chest Pain 06/21/2011 BÁRBARA BHANDARI MD 272.4 OTHER AND UNSPECIFIED HYPERLIPIDEMIA 06/21/2011 272.4 OTHER AND UNSPECIFIED HYPERLIPIDEMIA 06/21/2011 272.4 OTHER AND UNSPECIFIED HYPERLIPIDEMIA 06/21/2011 BÁRBARA BHANDARI MD 272.4 OTHER AND UNSPECIFIED HYPERLIPIDEMIA 06/21/2011 IZZY KUNZ APRN 272.4 OTHER AND UNSPECIFIED HYPERLIPIDEMIA 06/21/2011 BÁRBARA BHANDARI MD 272.4 OTHER AND UNSPECIFIED HYPERLIPIDEMIA 06/21/2011 KRISTEL HINOJOSA APRN R 272.4 OTHER AND UNSPECIFIED HYPERLIPIDEMIA 06/21/2011 ART QUINTERO DO K 272.4 OTHER AND UNSPECIFIED HYPERLIPIDEMIA 06/21/2011 HOSSEIN MAYES MD 272.4 OTHER AND UNSPECIFIED HYPERLIPIDEMIA 06/21/2011 ART QUINTERO DO 272.4 OTHER AND UNSPECIFIED HYPERLIPIDEMIA 06/21/2011 BÁRBARA BHANDARI MD 272.4 OTHER AND UNSPECIFIED HYPERLIPIDEMIA 06/21/2011 BÁRBARA BHANDARI MD 272.4 OTHER AND UNSPECIFIED HYPERLIPIDEMIA 06/21/2011 KRISTEL HINOJOSA APRN R 272.4 OTHER AND UNSPECIFIED HYPERLIPIDEMIA 06/21/2011 BÁRBARA BHANDARI MD 272.4 OTHER AND UNSPECIFIED HYPERLIPIDEMIA 06/21/2011 KRISTEL HINOJOSA APRN R 272.4 OTHER AND UNSPECIFIED HYPERLIPIDEMIA 06/21/2011 BÁRBARA BHANDARI MD 272.4 OTHER AND UNSPECIFIED HYPERLIPIDEMIA 06/21/2011 BÁRBARA BHANDARI MD 272.4 OTHER AND UNSPECIFIED HYPERLIPIDEMIA 06/21/2011 ART QUINTERO DO 272.4 OTHER AND UNSPECIFIED HYPERLIPIDEMIA 07/05/2011 BÁRBARA BHANDARI MD 372.72 Conjunctival Hemorrhage 07/05/2011 372.72 Conjunctival Hemorrhage 07/05/2011 372.72 Conjunctival Hemorrhage 07/05/2011 BÁRBARA BHANDARI MD 372.72 Conjunctival Hemorrhage 07/05/2011 IZZY KNUZ APRN R 372.72 Conjunctival Hemorrhage 07/05/2011 BÁRBARA BHANDARI MD 372.72 Conjunctival Hemorrhage 07/05/2011 KRISTEL HINOJOSA APRN R 372.72 Conjunctival Hemorrhage 07/05/2011 ART QUINTERO DO K 372.72 Conjunctival Hemorrhage 07/05/2011 HOSSEIN MAYES MD 372.72 Conjunctival Hemorrhage 07/05/2011 ART QUINTERO DO K 372.72 Conjunctival Hemorrhage 07/05/2011 BÁRBARA BHANDARI MD 372.72 Conjunctival Hemorrhage 07/05/2011 BÁRBARA BHANDARI MD 372.72 Conjunctival Hemorrhage 07/05/2011 KRISTEL HINOJOSA APRN R 372.72 Conjunctival Hemorrhage 07/05/2011 BÁRBARA BHANDARI MD 372.72 Conjunctival Hemorrhage 07/05/2011 KRISTEL HINOJOSA APRN R 372.72 Conjunctival Hemorrhage 07/05/2011 BÁRBARA BHANDARI MD 372.72 Conjunctival Hemorrhage 07/05/2011 BÁRBARA BHANDARI MD 372.72 Conjunctival Hemorrhage 07/05/2011 ART QUINTERO DO K 372.72 Conjunctival Hemorrhage 08/23/2011 BÁRBARA BHANDARI MD 401.9 UNSPECIFIED ESSENTIAL HYPERTENSION 08/23/2011 401.9 UNSPECIFIED ESSENTIAL HYPERTENSION 08/23/2011 401.9 UNSPECIFIED ESSENTIAL HYPERTENSION 08/23/2011 BÁRBARA BHANDARI MD 401.9 UNSPECIFIED ESSENTIAL HYPERTENSION 08/23/2011 IZZY KUNZ APRN 401.9 UNSPECIFIED ESSENTIAL HYPERTENSION 08/23/2011 BÁRBARA BHANDARI MD 401.9 UNSPECIFIED ESSENTIAL HYPERTENSION 08/23/2011 KRISTEL HINOJOSA APRN R 401.9 UNSPECIFIED ESSENTIAL HYPERTENSION 08/23/2011 INGRID CLAY ART K 401.9 UNSPECIFIED ESSENTIAL HYPERTENSION 08/23/2011 GERBER MORALES, HOSSEIN N 401.9 UNSPECIFIED ESSENTIAL HYPERTENSION 08/23/2011 INGRID CLAY ART K 401.9 UNSPECIFIED ESSENTIAL HYPERTENSION 08/23/2011 BÁRBARA BHANDARI MD 401.9 UNSPECIFIED ESSENTIAL HYPERTENSION 08/23/2011 BÁRBARA BHANDARI MD 401.9 UNSPECIFIED ESSENTIAL HYPERTENSION 08/23/2011 KRISTEL HINOJOSA APRN R 401.9 UNSPECIFIED ESSENTIAL HYPERTENSION 08/23/2011 BÁRBARA BHANDARI MD 401.9 UNSPECIFIED ESSENTIAL HYPERTENSION 08/23/2011 KRISTEL HINOJOSA APRN R 401.9 UNSPECIFIED ESSENTIAL HYPERTENSION 08/23/2011 BÁRBARA BHANDARI MD 401.9 UNSPECIFIED ESSENTIAL HYPERTENSION 08/23/2011 BÁRBARA BHANDARI MD 401.9 UNSPECIFIED ESSENTIAL HYPERTENSION 08/23/2011 INGRID CLAY ART K 401.9 UNSPECIFIED ESSENTIAL HYPERTENSION 05/26/2012 BÁRBARA BHANDARI MD E905.3 Sting Of Hornets Wasps And Bees Causing Poisoning And Toxic Reactions 05/26/2012 E905.3 Sting Of Hornets Wasps And Bees Causing Poisoning And Toxic Reactions 05/26/2012 E905.3 Sting Of Hornets Wasps And Bees Causing Poisoning And Toxic Reactions 05/26/2012 BÁRBARA BHANDARI MD E905.3 Sting Of Hornets Wasps And Bees Causing Poisoning And Toxic Reactions 05/26/2012 IZZY KUNZ APRN R E905.3 Sting Of Hornets Wasps And Bees Causing Poisoning And Toxic Reactions 05/26/2012 BÁRABRA BHANDARI MD E905.3 Sting Of Hornets Wasps And Bees Causing Poisoning And Toxic Reactions 05/26/2012 KRISTEL HINOJOSA APRN R E905.3 Sting Of Hornets Wasps And Bees Causing Poisoning And Toxic Reactions 05/26/2012 ART QUINTERO DO E905.3 Sting Of Hornets Wasps And Bees Causing Poisoning And Toxic Reactions 05/26/2012 HOSSEIN MAYES MD E905.3 Sting Of Hornets Wasps And Bees Causing Poisoning And Toxic Reactions 05/26/2012 ART QUINTERO DO E905.3 Sting Of Hornets Wasps And Bees Causing Poisoning And Toxic Reactions 05/26/2012 BÁRBARA BHANDARI MD E905.3 Sting Of Hornets Wasps And Bees Causing Poisoning And Toxic Reactions 05/26/2012 BÁBRARA BHANDARI MD E905.3 Sting Of Hornets Wasps And Bees Causing Poisoning And Toxic Reactions 05/26/2012 KRISTEL HINOJOSA APRN E905.3 Sting Of Hornets Wasps And Bees Causing Poisoning And Toxic Reactions 05/26/2012 BÁRBARA BHANDARI MD E905.3 Sting Of Hornets Wasps And Bees Causing Poisoning And Toxic Reactions 05/26/2012 KRISTEL HINOJOSA APRN E905.3 Sting Of Hornets Wasps And Bees Causing Poisoning And Toxic Reactions 05/26/2012 BÁRBARA BHANDARI MD E905.3 Sting Of Hornets Wasps And Bees Causing Poisoning And Toxic Reactions 05/26/2012 BÁRBARA BHANDARI MD E905.3 Sting Of Hornets Wasps And Bees Causing Poisoning And Toxic Reactions 05/26/2012 ART QUINTERO DO E905.3 Sting Of Hornets Wasps And Bees Causing Poisoning And Toxic Reactions 12/29/2012 BÁRBARA BHANDARI MD 716.90 UNSPECIFIED ARTHROPATHY SITE UNSPECIFIED 12/29/2012 716.90 UNSPECIFIED ARTHROPATHY SITE UNSPECIFIED 12/29/2012 716.90 UNSPECIFIED ARTHROPATHY SITE UNSPECIFIED 12/29/2012 BÁRBARA BHANDARI MD 716.90 UNSPECIFIED ARTHROPATHY SITE UNSPECIFIED 12/29/2012 IZZY KUNZ APRN 716.90 UNSPECIFIED ARTHROPATHY SITE UNSPECIFIED 12/29/2012 BÁRBARA BHANDARI MD 716.90 UNSPECIFIED ARTHROPATHY SITE UNSPECIFIED 12/29/2012 KRISTEL HINOJOSA APRN 716.90 UNSPECIFIED ARTHROPATHY SITE UNSPECIFIED 12/29/2012 ART QUINTERO DO 716.90 UNSPECIFIED ARTHROPATHY SITE UNSPECIFIED 12/29/2012 HOSSEIN MAYES MD 716.90 UNSPECIFIED ARTHROPATHY SITE UNSPECIFIED 12/29/2012 ART QUINTERO DO K 716.90 UNSPECIFIED ARTHROPATHY SITE UNSPECIFIED 12/29/2012 BÁRBARA BHANDARI MD 716.90 UNSPECIFIED ARTHROPATHY SITE UNSPECIFIED 12/29/2012 BÁRBARA BHANDARI MD 716.90 UNSPECIFIED ARTHROPATHY SITE UNSPECIFIED 12/29/2012 ASHISH MOORE, KRISTEL R 716.90 UNSPECIFIED ARTHROPATHY SITE UNSPECIFIED 12/29/2012 BÁRBARA BHANDARI MD 716.90 UNSPECIFIED ARTHROPATHY SITE UNSPECIFIED 12/29/2012 ASHISH MOORE, KRISTEL White 716.90 UNSPECIFIED ARTHROPATHY SITE UNSPECIFIED 12/29/2012 BÁRBARA BHANDARI MD 716.90 UNSPECIFIED ARTHROPATHY SITE UNSPECIFIED 12/29/2012 BÁRBARA BHANDARI MD 716.90 UNSPECIFIED ARTHROPATHY SITE UNSPECIFIED 12/29/2012 ART QUINTERO DO K 716.90 UNSPECIFIED ARTHROPATHY SITE UNSPECIFIED 06/08/2013 455.6 HEMORRHOIDS NOS 06/08/2013 BÁRBARA BHANDARI MD 455.6 HEMORRHOIDS NOS 06/08/2013 JOAQUINA MOORE, IZZY R 455.6 HEMORRHOIDS NOS 06/08/2013 BÁRBARA BHANDARI MD 455.6 HEMORRHOIDS NOS 06/08/2013 ASHISH MOORE, KRISTEL R 455.6 HEMORRHOIDS NOS 06/08/2013 QUINTERO , ART K 455.6 HEMORRHOIDS NOS 06/08/2013 GERBER MORALES, HOSSEIN N 455.6 HEMORRHOIDS NOS 06/08/2013 INGRID CLAY, ART K 455.6 HEMORRHOIDS NOS 06/08/2013 BÁRBARA BHANDARI MD 455.6 HEMORRHOIDS NOS 06/08/2013 BÁRBARA BHANDARI MD 455.6 HEMORRHOIDS NOS 06/08/2013 ASHISH MOORE, KRISTEL R 455.6 HEMORRHOIDS NOS 06/08/2013 BÁRBARA BHANDARI MD 455.6 HEMORRHOIDS NOS 06/08/2013 ASHISH MOORE, KRISTEL R 455.6 HEMORRHOIDS NOS 06/08/2013 BÁRBARA BHANDARI MD 455.6 HEMORRHOIDS NOS 06/08/2013 BÁRBARA BHANDARI MD 455.6 HEMORRHOIDS NOS 06/08/2013 INGRID CLAY, ART K 455.6 HEMORRHOIDS NOS 07/30/2013 BÁRBARA BHANDARI MD 782.0 DISTURBANCE OF SKIN SENSATION 07/30/2013 IZZY KUNZ APRN R 782.0 DISTURBANCE OF SKIN SENSATION 07/30/2013 BÁRBARA BHANDARI MD 782.0 DISTURBANCE OF SKIN SENSATION 07/30/2013 KRISTEL HINOJOSA APRN R 782.0 DISTURBANCE OF SKIN SENSATION 07/30/2013 INGRID CLAY, ART K 782.0 DISTURBANCE OF SKIN SENSATION 07/30/2013 HOSSEIN MAYES MD 782.0 DISTURBANCE OF SKIN SENSATION 07/30/2013 RENETTA QUINTERO DOA K 782.0 DISTURBANCE OF SKIN SENSATION 07/30/2013 BÁRBARA BHANDARI MD 782.0 DISTURBANCE OF SKIN SENSATION 07/30/2013 BÁRBARA BHANDARI MD 782.0 DISTURBANCE OF SKIN SENSATION 07/30/2013 KRISTEL HINOJOSA APRN R 782.0 DISTURBANCE OF SKIN SENSATION 07/30/2013 BÁRBARA BHANDARI MD 782.0 DISTURBANCE OF SKIN SENSATION 07/30/2013 KRISTEL HINOJOSA APRN R 782.0 DISTURBANCE OF SKIN SENSATION 07/30/2013 BÁRBARA BHANDARI MD 782.0 DISTURBANCE OF SKIN SENSATION 07/30/2013 BÁRBARA BHANDARI MD 782.0 DISTURBANCE OF SKIN SENSATION 07/30/2013 INGRID CLAY, ART K 782.0 DISTURBANCE OF SKIN SENSATION 08/06/2013 IZZY KUNZ APRN R 883.0 OPEN WOUND OF FINGERS WITHOUT COMPLICATION 08/06/2013 IZZY KUNZ APRN R V06.5 NEED FOR PROPHYLACTIC VACCINATION AND INOCULATION AGAINST TETANUS-DIPHTHERIA [Td] [DT] 08/06/2013 BÁRBARA BHANDARI MD 883.0 OPEN WOUND OF FINGERS WITHOUT COMPLICATION 08/06/2013 BÁRBARA BHANDARI MD V06.5 NEED FOR PROPHYLACTIC VACCINATION AND INOCULATION AGAINST TETANUS-DIPHTHERIA [Td] [DT] 08/06/2013 JOSE LUIS HINOJOSA APRNINA R 883.0 OPEN WOUND OF FINGERS WITHOUT COMPLICATION 08/06/2013 KRISTEL HINOJOSA APRN R V06.5 NEED FOR PROPHYLACTIC VACCINATION AND INOCULATION AGAINST TETANUS-DIPHTHERIA [Td] [DT] 08/06/2013 INGRID CLAY ART K 883.0 OPEN WOUND OF FINGERS WITHOUT COMPLICATION 08/06/2013 INGRID CLAY ART K V06.5 NEED FOR PROPHYLACTIC VACCINATION AND INOCULATION AGAINST TETANUS-DIPHTHERIA [Td] [DT] 08/06/2013 HOSSEIN MAYES MD 883.0 OPEN WOUND OF FINGERS WITHOUT COMPLICATION 08/06/2013 HOSSEIN MAYES MD V06.5 NEED FOR PROPHYLACTIC VACCINATION AND INOCULATION AGAINST TETANUS-DIPHTHERIA [Td] [DT] 08/06/2013 ART QUINTERO DO 883.0 OPEN WOUND OF FINGERS WITHOUT COMPLICATION 08/06/2013 INGRID CLAY, ART Bates V06.5 NEED FOR PROPHYLACTIC VACCINATION AND INOCULATION AGAINST TETANUS-DIPHTHERIA [Td] [DT] 08/06/2013 BÁRBARA BHANDARI MD 883.0 OPEN WOUND OF FINGERS WITHOUT COMPLICATION 08/06/2013 BÁRBARA BHANDARI MD V06.5 NEED FOR PROPHYLACTIC VACCINATION AND INOCULATION AGAINST TETANUS-DIPHTHERIA [TD] [DT] 08/06/2013 BÁRBARA BHANDARI MD 883.0 OPEN WOUND OF FINGERS WITHOUT COMPLICATION 08/06/2013 BÁRBARA BHANDARI MD V06.5 NEED FOR PROPHYLACTIC VACCINATION AND INOCULATION AGAINST TETANUS-DIPHTHERIA [TD] [DT] 08/06/2013 ASHISH MOORE, KRISTEL R 883.0 OPEN WOUND OF FINGERS WITHOUT COMPLICATION 08/06/2013 ASHISH MOORE, KRISTEL R V06.5 NEED FOR PROPHYLACTIC VACCINATION AND INOCULATION AGAINST TETANUS-DIPHTHERIA [TD] [DT] 08/06/2013 BÁRBARA BHANDARI MD 883.0 OPEN WOUND OF FINGERS WITHOUT COMPLICATION 08/06/2013 BÁRBARA BHANDARI MD V06.5 NEED FOR PROPHYLACTIC VACCINATION AND INOCULATION AGAINST TETANUS-DIPHTHERIA [TD] [DT] 08/06/2013 JOSE LUIS HINOJOSA APRNINA R 883.0 OPEN WOUND OF FINGERS WITHOUT COMPLICATION 08/06/2013 KRISTEL HINOJOSA APRN V06.5 NEED FOR PROPHYLACTIC VACCINATION AND INOCULATION AGAINST TETANUS-DIPHTHERIA [TD] [DT] 08/06/2013 BÁRBARA BHANDARI MD 883.0 OPEN WOUND OF FINGERS WITHOUT COMPLICATION 08/06/2013 BÁRBARA BHANDARI MD V06.5 NEED FOR PROPHYLACTIC VACCINATION AND INOCULATION AGAINST TETANUS-DIPHTHERIA [TD] [DT] 08/06/2013 BÁRBARA BHANDARI MD 883.0 OPEN WOUND OF FINGERS WITHOUT COMPLICATION 08/06/2013 BÁRBARA BHANDARI MD V06.5 NEED FOR PROPHYLACTIC VACCINATION AND INOCULATION AGAINST TETANUS-DIPHTHERIA [TD] [DT] 08/06/2013 ART QUINTERO DO 883.0 OPEN WOUND OF FINGERS WITHOUT COMPLICATION 08/06/2013 INGRID CLAY, ART K V06.5 NEED FOR PROPHYLACTIC VACCINATION AND INOCULATION AGAINST TETANUS-DIPHTHERIA [Td] [DT] 04/06/2014 ASHISH MOORE, KRISTEL R 703.0 INGROWING NAIL 04/06/2014 ASHISH MOORE, KRISTEL R 727.1 BUNION 04/06/2014 QUINTERO DO, ART K 703.0 INGROWING NAIL 04/06/2014 QUINTERO DO, ART K 727.1 BUNION 04/06/2014 GERBER MORALES, HOSSEIN N 703.0 INGROWING NAIL 04/06/2014 GERBER MORALES, HOSSEIN Martinez 727.1 BUNION 04/06/2014 QUINTERO , ART K 703.0 INGROWING NAIL 04/06/2014 INGRID CLAY, ART Bates 727.1 BUNION 04/06/2014 ELISABET MORALES, BÁRBARA 703.0 INGROWING NAIL 04/06/2014 ELISABET MROALES, BÁRBARA 727.1 BUNION 04/06/2014 ELISABET MORALES, BÁRBARA 703.0 INGROWING NAIL 04/06/2014 ELISABET MORALES, BÁRBARA 727.1 BUNION 04/06/2014 ASHISH MOORE, KRISTEL R 703.0 INGROWING NAIL 04/06/2014 ASHISH MOORE, KRISTEL R 727.1 BUNION 04/06/2014 ELISABET MORALES, BÁRBARA 703.0 INGROWING NAIL 04/06/2014 ELISABET MORALES, BÁRBARA 727.1 BUNION 04/06/2014 ASHISH MOORE, KRISTEL R 703.0 INGROWING NAIL 04/06/2014 ASHISH MOORE, KRISTEL R 727.1 BUNION 04/06/2014 BÁRBARA BHANDARI MD 703.0 INGROWING NAIL 04/06/2014 ELISABET MORALES, BÁRBARA 727.1 BUNION 04/06/2014 BÁRBARA BHANDARI MD 703.0 INGROWING NAIL 04/06/2014 BÁRBARA BHANDARI MD 727.1 BUNION 04/06/2014 INGRID CLAY, ART K 703.0 INGROWING NAIL 04/06/2014 QUINTERO DO, ART K 727.1 BUNION 04/30/2014 QUINTERO DO, ART K 110.1 ONYCHOMYCOSIS 04/30/2014 QUINTERO DO, ART K 356.9 NEUROPATHY 04/30/2014 QUINTERO DO, ART K 703.8 ONYCHOCRYPTOSIS 04/30/2014 GERBER MORALES, HOSSEIN N 110.1 ONYCHOMYCOSIS 04/30/2014 GERBER MORALES, HOSSEIN N 356.9 NEUROPATHY 04/30/2014 GERBER MORALES, HOSSEIN N 703.8 ONYCHOCRYPTOSIS 04/30/2014 QUINTERO DO, ART K 110.1 ONYCHOMYCOSIS 04/30/2014 QUINTERO DO, ART K 356.9 NEUROPATHY 04/30/2014 QUINTERO DO, ART K 703.8 ONYCHOCRYPTOSIS 04/30/2014 BÁRBARA BHANDARI MD 110.1 ONYCHOMYCOSIS 04/30/2014 BÁRBARA BHANDARI MD 356.9 NEUROPATHY 04/30/2014 BÁRBARA BHANDARI MD 703.8 ONYCHOCRYPTOSIS 04/30/2014 BÁRBARA BHANDARI MD 110.1 ONYCHOMYCOSIS 04/30/2014 BÁRBARA BHANDARI MD.9 NEUROPATHY 04/30/2014 BÁRBARA BHANDARI MD 703.8 ONYCHOCRYPTOSIS 04/30/2014 ASHISH MOORE, KRISTEL R 110.1 ONYCHOMYCOSIS 04/30/2014 ASHISH HERNANDEZN, KRISTEL R 356.9 NEUROPATHY 04/30/2014 ASHISH MOORE, KRISTEL R 703.8 ONYCHOCRYPTOSIS 04/30/2014 BÁRBARA BHANDARI MD 110.1 ONYCHOMYCOSIS 04/30/2014 BÁRBARA BHANDARI MD.9 NEUROPATHY 04/30/2014 BÁRBARA BHANDARI MD 703.8 ONYCHOCRYPTOSIS 04/30/2014 ASHISH MOORE, KRISTEL R 110.1 ONYCHOMYCOSIS 04/30/2014 ASHISH HERNANDEZN, KRISTEL R 356.9 NEUROPATHY 04/30/2014 ASHISH MOORE, KRISTEL R 703.8 ONYCHOCRYPTOSIS 04/30/2014 BÁRBARA BHANDARI MD 110.1 ONYCHOMYCOSIS 04/30/2014 BÁRBARA BHANDARI MD 356.9 NEUROPATHY 04/30/2014 BÁRBARA BHANDARI MD 703.8 ONYCHOCRYPTOSIS 04/30/2014 BÁRBARA BHANDARI MD 110.1 ONYCHOMYCOSIS 04/30/2014 BÁRBARA BHANDARI MD 356.9 NEUROPATHY 04/30/2014 BÁRBARA BHANDARI MD 703.8 ONYCHOCRYPTOSIS 04/30/2014 ART QUINTERO DO 110.1 ONYCHOMYCOSIS 04/30/2014 ART QUINTERO DO 356.9 UNSPECIFIED IDIOPATHIC PERIPHERAL NEUROPATHY 04/30/2014 ART QUINTERO DO 703.8 ONYCHOCRYPTOSIS 05/13/2014 GERBER MORALES, HOSSEIN [place] 729.5 PAIN- LEG 05/13/2014 ART QUINTERO DO 729.5 PAIN- LEG 05/13/2014 BÁRBARA BHANDARI MD 729.5 PAIN- LEG 05/13/2014 BÁRBARA BHANDARI MD 729.5 PAIN- LEG 05/13/2014 ASHISH MOORE, KRISTEL R 729.5 PAIN- LEG 05/13/2014 BÁRBARA BHANDARI MD 729.5 PAIN- LEG 05/13/2014 ASHISH MOORE, KRISTEL R 729.5 PAIN- LEG 05/13/2014 BÁRBARA BHANDARI MD 729.5 PAIN- LEG 05/13/2014 BÁRBARA BHANDARI MD 729.5 PAIN- LEG 05/13/2014 ART QUINTERO DO 729.5 PAIN- LEG 05/21/2014 ART QUINTERO DO 735.0 HALLUX VALGUS (ACQUIRED) 05/21/2014 ART QUINTERO DO 735.2 HALLUX RIGIDUS 05/21/2014 BÁRBARA BHANDARI MD 735.0 HALLUX VALGUS (ACQUIRED) 05/21/2014 BÁRBARA BHANDARI MD 735.2 HALLUX RIGIDUS 05/21/2014 BÁRBARA BHANDARI MD 735.0 HALLUX VALGUS (ACQUIRED) 05/21/2014 BÁRBARA BHANDARI MD 735.2 HALLUX RIGIDUS 05/21/2014 ASHISH MOORE, KRISTEL R 735.0 HALLUX VALGUS (ACQUIRED) 05/21/2014 ASHISH MOORE, KRISTEL R 735.2 HALLUX RIGIDUS 05/21/2014 BÁRBARA BHANDARI MD 735.0 HALLUX VALGUS (ACQUIRED) 05/21/2014 BÁRBARA BHANDARI MD 735.2 HALLUX RIGIDUS 05/21/2014 ASHISH MOORE, KRISTEL R 735.0 HALLUX VALGUS (ACQUIRED) 05/21/2014 ASHISH MOORE, KRISTEL R 735.2 HALLUX RIGIDUS 05/21/2014 BÁRBARA BHANDARI MD 735.0 HALLUX VALGUS (ACQUIRED) 05/21/2014 BÁRBARA BHANDARI MD 735.2 HALLUX RIGIDUS 05/21/2014 BÁRBARA BHANDARI MD 735.0 HALLUX VALGUS (ACQUIRED) 05/21/2014 BÁRBARA BHANDARI MD 735.2 HALLUX RIGIDUS 05/21/2014 QUINTERO DO, ART K 735.0 HALLUX VALGUS (ACQUIRED) 05/21/2014 QUINTERO DO, ART K 735.2 HALLUX RIGIDUS 08/26/2014 ASHISH MOORE, KRISTEL R 724.2 LUMBAGO 08/26/2014 BÁRBARA BHANDARI MD 724.2 LUMBAGO 08/26/2014 BÁRBARA BHANDARI MD 724.2 LUMBAGO 08/26/2014 QUINTERO , ART Bates 724.2 LUMBAGO 10/14/2014 EDWIGE DANIEL MD Ot 401.9 HYPERTENSION NOS 10/14/2014 EDWIGE DANIEL MD Ot 723.0 CERVICAL SPINAL STENOSIS 10/14/2014 EDWIGE DANIEL MD Ot 781.3 LACK OF COORDINATION 10/14/2014 EDWIGE DANIEL MD Ot 787.60 FULL INCONTINENCE OF FECES 10/14/2014 EDWIGE DANIEL MD Ot 788.20 RETENTION OF URINE NOS 10/14/2014 EDWIGE DANIEL MD Ot 788.21 INCOMPLETE BLADDER EMPTYING 10/14/2014 EDWIGE DANIEL MD Ot V58.69 OT MED,LT,CURRENT USE 10/22/2014 CLEOPATRA MCKENNA MD E Ot 401.9 10/22/2014 CLEOPATRA MCKENNA MD E Ot 780.52 10/22/2014 CLEOPATRA MCKENNA MD Ot V57.89 10/22/2014 CLEOPATRA MCKENNA MD E Ot V58.78 10/26/2014 CLEOPATRA MCKENNA MD E Ot 300.00 ANXIETY STATE NOS 10/26/2014 CLEOPATRA MCKENNA MD E Ot 401.9 HYPERTENSION NOS 10/26/2014 CLEOPATRA MCKENNA MD E Ot 780.52 INSOMNIA, UNSPECIFIED 10/26/2014 CLEOPATRA MCKENNA MD E Ot 781.2 ABNORMALITY OF GAIT 10/26/2014 CLARISA MORALES, CLEOPATRA Mitchell Ot V04.81 ND FOR PROPHYLACTIC VACCIN AND INOCULATI 10/26/2014 CLARISA MORALES, CLEOPATRA Mitchell Ot V57.89 REHABILITATION PROC NEC 10/26/2014 CLEOPATRA MCKENNA MD Ot V58.78 AFTERCARE POST SURGERY MUSCULOSKELETAL S 11/02/2014 ELISABET MORALES, BÁRBARA 782.3 EDEMA 11/02/2014 ART QUINTERO DO 782.3 EDEMA 11/11/2014 LONG VILLEGAS MD Ot 564.00 UNSPEC CONSTIPATION 11/11/2014 LONG VILLEGAS MD Ot 789.09 ABDOMINAL PAIN, OTHER SPECIFIED SITE 12/23/2014 ALTON WOLF MD Ot V58.78 12/23/2014 ALTON WOLF MD Ot V58.78 12/23/2014 ALTON WOLF MD Ot V58.78 12/23/2014 ALTON WOLF MD Ot V58.78 12/23/2014 ALTON WOLF MD Ot V58.78 12/29/2014 ALTON WOLF MD Ot V58.78 01/05/2015 ALTON WOLF MD Ot V58.78 02/15/2015 INGRID CLAY, ART K 401.1 HYPERTENSION, BENIGN ESSENTIAL 12/11/2015 DEJA ARCHIBALD MD Ot F12.10 CANNABIS ABUSE, UNCOMPLICATED 12/11/2015 DEJA ARCHIBALD MD Ot F15.10 OTHER STIMULANT ABUSE, UNCOMPLICATED 12/11/2015 DEJA ARCHIBALD MD Ot I95.9 HYPOTENSION, UNSPECIFIED 12/11/2015 DEJA ARCHIBALD MD Ot M19.011 PRIMARY OSTEOARTHRITIS, RIGHT SHOULDER 12/11/2015 DEJA ARCHIBALD MD Ot M50.30 OTHER CERVICAL DISC DEGENERATION, UNSP C 12/11/2015 DEJA ARCHIBALD MD Ot N19 UNSPECIFIED KIDNEY FAILURE 12/11/2015 DEJA ARCHIBALD MD Ot S39.92XA UNSPECIFIED INJURY OF LOWER BACK, INITIA 12/11/2015 DEJA ARCHIBALD MD Ot W18.30XA FALL ON SAME LEVEL, UNSPECIFIED, INITIAL 12/11/2015 DEJA ARCHIBALD MD Ot Y92.013 BEDROOM OF SINGLE-FAMILY (PRIVATE) HOUSE 12/11/2015 CRISTELA MORALES, DEJA Bates Ot Y99.8 OTHER EXTERNAL CAUSE STATUS 12/11/2015 ALTON WOLF MD Ot V58.78 05/28/2017 ALTON WOLF MD Ot V58.78 AFTERCARE POST SURGERY MUSCULOSKELETAL S 05/28/2017 ALTON WOLF MD Ot V58.78 AFTERCARE POST SURGERY MUSCULOSKELETAL S 06/03/2017 BROWNDIPESH MARSH DO Ot G62.9 POLYNEUROPATHY, UNSPECIFIED 06/03/2017 BROWNSALMA CLAY DIPESH Ot I10 ESSENTIAL (PRIMARY) HYPERTENSION 06/03/2017 BROWNSALMA CLAY DIPESH Ot L02.412 CUTANEOUS ABSCESS OF LEFT AXILLA 06/03/2017 BROWNMARISA MARSH DOI Ot M48.02 SPINAL STENOSIS, CERVICAL REGION 06/03/2017 BROWNSALMA CLAY DIPESH Ot R21 RASH AND OTHER NONSPECIFIC SKIN ERUPTION 06/03/2017 BROWNMARISA MARSH DOI Ot 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) DRUG THERAPY 06/03/2017 MARISA BROWN DOI Ot Z98.890 OTHER SPECIFIED POSTPROCEDURAL STATES Procedures Code [place] [address] XRAY KNEE RIGHT 1 OR 2 VIEWS 12/31/2012 OrthopedMiki Shipman 12/31/2012 31405 JOINT INJECTION- INTERMEDIATE JOINT 03/19/2013 11003 ROUTINE VENIPUNCTURE 06/11/2013 22459 CMP 06/11/2013 79009 LIPID PANEL 06/11 [id number] GFR CALC (RESULT ONLY) 06/11/2013 74043 NAIL REMOVAL PERMANENT (PARTIAL OR COMPLETE) 04/30/2014 62890 DEBRIDE NAIL >6 05/21/2014 29240 ROUTINE VENIPUNCTURE 06/16/2014 80783 XRAY RIBS RIGHT UNILATERAL 2 OR MORE VIEWS 06/16/2014 66890 ROUTINE VENIPUNCTURE 06/16/2014 [id number] GFR CALC (RESULT ONLY) 06/16/2014 75375 CMP 06/16/2014 48984 LIPID PANEL 06/16 Results Test Result Range Complete blood count (CBC) with automated white blood cell (WBC) differential - 05/28/17 22:00 Blood leukocytes automated count (number/volume) 12.5 10*3/ uL 4.3-11.0 Blood erythrocytes automated count (number/volume) 4.59 10*6 /uL 4.35-5.85 Venous blood hemoglobin measurement (mass/volume) 13.9 g/dL 13.3-17.7 Blood hematocrit (volume fraction) 39 % 40-54 Automated erythrocyte mean corpuscular volume 86 [foz_us] 80-99 Automated erythrocyte mean corpuscular hemoglobin (mass per erythrocyte) 30 pg 25-34 Automated erythrocyte mean corpuscular hemoglobin concentration measurement ( mass/volume) 35 g/dL 32-36 Automated erythrocyte distribution width ratio 13.6 % 10.0-14.5 Automated blood platelet count (count/volume) 280 10*3/uL 130-400 Automated blood platelet mean volume measurement 9.9 [foz_us ] 7.4-10.4 Automated blood neutrophils/100 leukocytes 82 % 42-75 Automated blood lymphocytes/100 leukocytes 11 % 12-44 Blood monocytes/100 leukocytes 5 % 0-12 Automated blood eosinophils/100 leukocytes 2 % 0-10 Automated blood basophils/100 leukocytes 0 % 0-10 Blood neutrophils automated count (number/volume) 10.2 10*3 1.8-7.8 Blood lymphocytes automated count (number/volume) 1.4 10*3 1.0-4.0 Blood monocytes automated count (number/volume) 0.6 10*3 0.0-1.0 Automated eosinophil count 0.3 10*3/uL 0.0-0.3 Automated blood basophil count (count/volume) 0.0 10*3/uL 0.0-0.1 Comprehensive metabolic panel - 05/28/17 22:00 Serum or plasma sodium measurement (moles/volume) 141 mmol/ L 135-145 Serum or plasma potassium measurement (moles/volume) 2.8 mmol/L 3.6-5.0 Serum or plasma chloride measurement (moles/volume) 105 mmol /L 98-107 Carbon dioxide 23 mmol/L 21-32 Serum or plasma anion gap determination (moles/volume) 13 mmol/L 5-14 Serum or plasma urea nitrogen measurement (mass/volume) 16 mg/dL 7-18 Serum or plasma creatinine measurement (mass/volume) 0.82 mg /dL 0.60-1.30 Serum or plasma urea nitrogen/creatinine mass ratio 20 NRG Serum or plasma creatinine measurement with calculation of estimated glomerular filtration rate > NRG Serum or plasma glucose measurement (mass/volume) 141 mg/dL 70-105 Serum or plasma calcium measurement (mass/volume) 8.6 mg/dL 8.5-10.1 Serum or plasma total bilirubin measurement (mass/volume) 0.7 mg/dL 0.1-1.0 Serum or plasma alkaline phosphatase measurement (enzymatic activity/volume) 114 U/L 40-136 Serum or plasma aspartate aminotransferase measurement (enzymatic activity/ volume) 18 U/L 5-34 Serum or plasma alanine aminotransferase measurement (enzymatic activity/volume ) 19 U/L 0-55 Serum or plasma protein measurement (mass/volume) 6.9 g/dL 6.4-8.2 Serum or plasma albumin measurement (mass/volume) 3.7 g/dL 3.2-4.5 Blood lactic acid measurement (moles/volume) - 05/28/17 22:00 Blood lactic acid measurement (moles/volume) 2.69 mmol/L 0.50-2.00 PT panel in platelet poor plasma by coagulation assay - 05/28/17 22:00 Prothrombin time (PT) in platelet poor plasma by coagulation assay 13.1 s 12.2-14.7 INR in platelet poor plasma or blood by coagulation assay 1.0 0.8-1.4 Activated partial thromboplastin time (aPTT) in platelet poor plasma bycoagulation assay - 05/28/17 22:00 Activated partial thromboplastin time (aPTT) in platelet poor plasma bycoagulation assay 26 s 24-35 Bacterial blood culture - 05/28/17 23:25 Bacterial blood culture NG NRG Serum or plasma lactate measurement (moles/volume) - 05/28/17 23:47 Serum or plasma lactate measurement (moles/volume) 1.87 mmol /L 0.50-2.00 Bacterial blood culture - 05/28/17 23:47 Bacterial blood culture NG NRG Complete urinalysis with reflex to culture - 05/29/17 00:00 Urine color determination YELLOW NRG Urine clarity determination CLEAR NRG Urine pH measurement by test strip 6.5 5 -9 Specific gravity of urine by test strip 1.015 1.016-1.022 Urine protein assay by test strip, semi-quantitative NEGATIVE NEGATIVE Urine glucose detection by automated test strip NEGATIVE NEGATIVE Erythrocytes detection in urine sediment by light microscopy 1+ NEGATIVE Urine ketones detection by automated test strip NEGATIVE NEGATIVE Urine nitrite detection by test strip NEGATIVE NEGATIVE Urine total bilirubin detection by test strip NEGATIVE NEGATIVE Urine urobilinogen measurement by automated test strip (mass/volume) 4 mg/dL NORMAL Urine leukocyte esterase detection by dipstick NEGATIVE NEGATIVE Automated urine sediment erythrocyte count by microscopy (number/high power field) [HPF] NRG Automated urine sediment leukocyte count by microscopy (number/high power field ) NONE NRG Bacteria detection in urine sediment by light microscopy NEGATIVE NRG Squamous epithelial cells detection in urine sediment by light microscopy 0-2 NRG Crystals detection in urine sediment by light microscopy NONE NRG Casts detection in urine sediment by light microscopy NONE NRG Mucus detection in urine sediment by light microscopy NEGATIVE NRG Complete urinalysis with reflex to culture NO NRG Serum or plasma troponin i.cardiac measurement (mass/volume) - 05/29/17 00:37 Serum or plasma troponin i.cardiac measurement (mass/volume) < ng/mL <0.30 Myoglobin, serum - 05/29/17 00:37 Myoglobin, serum 68.5 ng/mL 10.0-92.0 Blood lactic acid measurement (moles/volume) - 05/29/17 02:06 Blood lactic acid measurement (moles/volume) 1.55 mmol/L 0.50-2.00 Complete blood count (CBC) with automated white blood cell (WBC) differential - 05/29/17 04:14 Blood leukocytes automated count (number/volume) 15.4 10*3/ uL 4.3-11.0 Blood erythrocytes automated count (number/volume) 4.69 10*6 /uL 4.35-5.85 Venous blood hemoglobin measurement (mass/volume) 14.1 g/dL 13.3-17.7 Blood hematocrit (volume fraction) 41 % 40-54 Automated erythrocyte mean corpuscular volume 87 [foz_us] 80-99 Automated erythrocyte mean corpuscular hemoglobin (mass per erythrocyte) 30 pg 25-34 Automated erythrocyte mean corpuscular hemoglobin concentration measurement ( mass/volume) 35 g/dL 32-36 Automated erythrocyte distribution width ratio 13.8 % 10.0-14.5 Automated blood platelet count (count/volume) 261 10*3/uL 130-400 Automated blood platelet mean volume measurement 10.6 [foz_ us] 7.4-10.4 Automated blood neutrophils/100 leukocytes 96 % 42-75 Automated blood lymphocytes/100 leukocytes 3 % 12-44 Blood monocytes/100 leukocytes 1 % 0-12 Automated blood eosinophils/100 leukocytes 0 % 0-10 Automated blood basophils/100 leukocytes 0 % 0-10 Blood neutrophils automated count (number/volume) 14.7 10*3 1.8-7.8 Blood lymphocytes automated count (number/volume) 0.4 10*3 1.0-4.0 Blood monocytes automated count (number/volume) 0.2 10*3 0.0-1.0 Automated eosinophil count 0.0 10*3/uL 0.0-0.3 Automated blood basophil count (count/volume) 0.0 10*3/uL 0.0-0.1 Comprehensive metabolic panel - 05/29/17 04:14 Serum or plasma sodium measurement (moles/volume) 140 mmol/ L 135-145 Serum or plasma potassium measurement (moles/volume) 2.8 mmol/L 3.6-5.0 Serum or plasma chloride measurement (moles/volume) 105 mmol /L 98-107 Carbon dioxide 21 mmol/L 21-32 Serum or plasma anion gap determination (moles/volume) 14 mmol/L 5-14 Serum or plasma urea nitrogen measurement (mass/volume) 11 mg/dL 7-18 Serum or plasma creatinine measurement (mass/volume) 0.81 mg /dL 0.60-1.30 Serum or plasma urea nitrogen/creatinine mass ratio 14 NRG Serum or plasma creatinine measurement with calculation of estimated glomerular filtration rate > NRG Serum or plasma glucose measurement (mass/volume) 208 mg/dL 70-105 Serum or plasma calcium measurement (mass/volume) 8.5 mg/dL 8.5-10.1 Serum or plasma total bilirubin measurement (mass/volume) 0.7 mg/dL 0.1-1.0 Serum or plasma alkaline phosphatase measurement (enzymatic activity/volume) 117 U/L 40-136 Serum or plasma aspartate aminotransferase measurement (enzymatic activity/ volume) 22 U/L 5-34 Serum or plasma alanine aminotransferase measurement (enzymatic activity/volume ) 22 U/L 0-55 Serum or plasma protein measurement (mass/volume) 7.4 g/dL 6.4-8.2 Serum or plasma albumin measurement (mass/volume) 3.9 g/dL 3.2-4.5 Blood manual differential performed detection - 05/29/17 04:14 Blood monocytes/100 leukocytes 1 % NRG Manual blood segmented neutrophils/100 leukocytes 91 % NRG Blood band neutrophils/100 leukocytes 3 % NRG Manual blood lymphocytes/100 leukocytes 5 % NRG Blood erythrocyte morphology finding identification NORMAL NRG Methicillin resistant Staphylococcus aureus (MRSA) screening culture - 14:30 Methicillin resistant Staphylococcus aureus (MRSA) screening culture NEG NRG Complete blood count (CBC) with automated white blood cell (WBC) differential - 05/30/17 05:14 Blood leukocytes automated count (number/volume) 21.5 10*3/ uL 4.3-11.0 Blood erythrocytes automated count (number/volume) 4.28 10*6 /uL 4.35-5.85 Venous blood hemoglobin measurement (mass/volume) 13.0 g/dL 13.3-17.7 Blood hematocrit (volume fraction) 37 % 40-54 Automated erythrocyte mean corpuscular volume 87 [foz_us] 80-99 Automated erythrocyte mean corpuscular hemoglobin (mass per erythrocyte) 30 pg 25-34 Automated erythrocyte mean corpuscular hemoglobin concentration measurement ( mass/volume) 35 g/dL 32-36 Automated erythrocyte distribution width ratio 13.8 % 10.0-14.5 Automated blood platelet count (count/volume) 280 10*3/uL 130-400 Automated blood platelet mean volume measurement 10.6 [foz_ us] 7.4-10.4 Automated blood neutrophils/100 leukocytes 95 % 42-75 Automated blood lymphocytes/100 leukocytes 3 % 12-44 Blood monocytes/100 leukocytes 2 % 0-12 Automated blood eosinophils/100 leukocytes 0 % 0-10 Automated blood basophils/100 leukocytes 0 % 0-10 Blood neutrophils automated count (number/volume) 20.4 10*3 1.8-7.8 Blood lymphocytes automated count (number/volume) 0.6 10*3 1.0-4.0 Blood monocytes automated count (number/volume) 0.5 10*3 0.0-1.0 Automated eosinophil count 0.0 10*3/uL 0.0-0.3 Automated blood basophil count (count/volume) 0.0 10*3/uL 0.0-0.1 Comprehensive metabolic panel - 05/30/17 05:14 Serum or plasma sodium measurement (moles/volume) 136 mmol/ L 135-145 Serum or plasma potassium measurement (moles/volume) 3.9 mmol/L 3.6-5.0 Serum or plasma chloride measurement (moles/volume) 105 mmol /L 98-107 Carbon dioxide 21 mmol/L 21-32 Serum or plasma anion gap determination (moles/volume) 10 mmol/L 5-14 Serum or plasma urea nitrogen measurement (mass/volume) 32 mg/dL 7-18 Serum or plasma creatinine measurement (mass/volume) 0.71 mg /dL 0.60-1.30 Serum or plasma urea nitrogen/creatinine mass ratio 45 NRG Serum or plasma creatinine measurement with calculation of estimated glomerular filtration rate > NRG Serum or plasma glucose measurement (mass/volume) 167 mg/dL 70-105 Serum or plasma calcium measurement (mass/volume) 9.2 mg/dL 8.5-10.1 Serum or plasma total bilirubin measurement (mass/volume) 0.6 mg/dL 0.1-1.0 Serum or plasma alkaline phosphatase measurement (enzymatic activity/volume) 103 U/L 40-136 Serum or plasma aspartate aminotransferase measurement (enzymatic activity/ volume) 13 U/L 5-34 Serum or plasma alanine aminotransferase measurement (enzymatic activity/volume ) 17 U/L 0-55 Serum or plasma protein measurement (mass/volume) 6.8 g/dL 6.4-8.2 Serum or plasma albumin measurement (mass/volume) 3.6 g/dL 3.2-4.5 Lipid 1996 panel - 05/30/17 05:14 Serum or plasma triglyceride measurement (mass/volume) 83 mg /dL <150 Serum or plasma cholesterol measurement (mass/volume) 140 mg /dL < 200 Serum or plasma cholesterol in HDL measurement (mass/volume) 52 mg/dL 40-60 Cholesterol in LDL [mass/volume] in serum or plasma by direct assay 76 mg/dL 1-129 Serum or plasma cholesterol in VLDL measurement (mass/volume) 17 mg/dL 5-40 Blood manual differential performed detection - 05/30/17 05:14 Blood monocytes/100 leukocytes 1 % NRG Manual blood segmented neutrophils/100 leukocytes 94 % NRG Blood band neutrophils/100 leukocytes 2 % NRG Manual blood lymphocytes/100 leukocytes 3 % NRG Manual eosinophils/100 leukocytes in nose 0 % NRG Manual blood basophils/100 leukocytes 0 % NRG Blood anisocytosis detection by light microscopy SLIGHT NRG Bacteria identification in isolate by anaerobe culture - 05/30/17 10:05 Bacteria identification in isolate by anaerobe culture NG NRG Gram stain microscopy - 05/30/17 10:05 GRAM STAIN RESULT NO BACTERIA OBSERVED NR Bacteria identification in wound by culture - 05/30/17 10:05 Bacteria identification in wound by culture [facility] Complete blood count (CBC) with automated white blood cell (WBC) differential - 05/31/17 04:26 Blood leukocytes automated count (number/volume) 14.1 10*3/ uL 4.3-11.0 Blood erythrocytes automated count (number/volume) 3.45 10*6 /uL 4.35-5.85 Venous blood hemoglobin measurement (mass/volume) 10.6 g/dL 13.3-17.7 Blood hematocrit (volume fraction) 31 % 40-54 Automated erythrocyte mean corpuscular volume 89 [foz_us] 80-99 Automated erythrocyte mean corpuscular hemoglobin (mass per erythrocyte) 31 pg 25-34 Automated erythrocyte mean corpuscular hemoglobin concentration measurement ( mass/volume) 35 g/dL 32-36 Automated erythrocyte distribution width ratio 13.9 % 10.0-14.5 Automated blood platelet count (count/volume) 242 10*3/uL 130-400 Automated blood platelet mean volume measurement 11.0 [foz_ us] 7.4-10.4 Automated blood neutrophils/100 leukocytes 88 % 42-75 Automated blood lymphocytes/100 leukocytes 6 % 12-44 Blood monocytes/100 leukocytes 6 % 0-12 Automated blood eosinophils/100 leukocytes 0 % 0-10 Automated blood basophils/100 leukocytes 0 % 0-10 Blood neutrophils automated count (number/volume) 12.5 10*3 1.8-7.8 Blood lymphocytes automated count (number/volume) 0.9 10*3 1.0-4.0 Blood monocytes automated count (number/volume) 0.8 10*3 0.0-1.0 Automated eosinophil count 0.0 10*3/uL 0.0-0.3 Automated blood basophil count (count/volume) 0.0 10*3/uL 0.0-0.1 Whole blood basic metabolic panel - 05/31/17 04:26 Serum or plasma sodium measurement (moles/volume) 136 mmol/ L 135-145 Serum or plasma potassium measurement (moles/volume) 4.1 mmol/L 3.6-5.0 Serum or plasma chloride measurement (moles/volume) 103 mmol /L 98-107 Carbon dioxide 22 mmol/L 21-32 Serum or plasma anion gap determination (moles/volume) 11 mmol/L 5-14 Serum or plasma urea nitrogen measurement (mass/volume) 26 mg/dL 7-18 Serum or plasma creatinine measurement (mass/volume) 0.62 mg /dL 0.60-1.30 Serum or plasma urea nitrogen/creatinine mass ratio 42 NRG Serum or plasma creatinine measurement with calculation of estimated glomerular filtration rate > NRG Serum or plasma glucose measurement (mass/volume) 101 mg/dL 70-105 Serum or plasma calcium measurement (mass/volume) 7.8 mg/dL 8.5-10.1 Complete blood count (CBC) with automated white blood cell (WBC) differential - 06/01/17 14:32 Blood leukocytes automated count (number/volume) 8.9 10*3/ uL 4.3-11.0 Blood erythrocytes automated count (number/volume) 3.80 10*6 /uL 4.35-5.85 Venous blood hemoglobin measurement (mass/volume) 11.5 g/dL 13.3-17.7 Blood hematocrit (volume fraction) 34 % 40-54 Automated erythrocyte mean corpuscular volume 90 [foz_us] 80-99 Automated erythrocyte mean corpuscular hemoglobin (mass per erythrocyte) 30 pg 25-34 Automated erythrocyte mean corpuscular hemoglobin concentration measurement ( mass/volume) 34 g/dL 32-36 Automated erythrocyte distribution width ratio 14.3 % 10.0-14.5 Automated blood platelet count (count/volume) 260 10*3/uL 130-400 Automated blood platelet mean volume measurement 10.2 [foz_ us] 7.4-10.4 Automated blood neutrophils/100 leukocytes 71 % 42-75 Automated blood lymphocytes/100 leukocytes 18 % 12-44 Blood monocytes/100 leukocytes 8 % 0-12 Automated blood eosinophils/100 leukocytes 3 % 0-10 Automated blood basophils/100 leukocytes 0 % 0-10 Blood neutrophils automated count (number/volume) 6.3 10*3 1.8-7.8 Blood lymphocytes automated count (number/volume) 1.6 10*3 1.0-4.0 Blood monocytes automated count (number/volume) 0.7 10*3 0.0-1.0 Automated eosinophil count 0.3 10*3/uL 0.0-0.3 Automated blood basophil count (count/volume) 0.0 10*3/uL 0.0-0.1 Comprehensive metabolic panel - 06/01/17 14:32 Serum or plasma sodium measurement (moles/volume) 138 mmol/ L 135-145 Serum or plasma potassium measurement (moles/volume) 3.3 mmol/L 3.6-5.0 Serum or plasma chloride measurement (moles/volume) 101 mmol /L 98-107 Carbon dioxide 29 mmol/L 21-32 Serum or plasma anion gap determination (moles/volume) 8 mmol/L 5-14 Serum or plasma urea nitrogen measurement (mass/volume) 14 mg/dL 7-18 Serum or plasma creatinine measurement (mass/volume) 0.67 mg /dL 0.60-1.30 Serum or plasma urea nitrogen/creatinine mass ratio 21 NRG Serum or plasma creatinine measurement with calculation of estimated glomerular filtration rate > NRG Serum or plasma glucose measurement (mass/volume) 97 mg/dL 70-105 Serum or plasma calcium measurement (mass/volume) 8.1 mg/dL 8.5-10.1 Serum or plasma total bilirubin measurement (mass/volume) 0.6 mg/dL 0.1-1.0 Serum or plasma alkaline phosphatase measurement (enzymatic activity/volume) 82 U/L 40-136 Serum or plasma aspartate aminotransferase measurement (enzymatic activity/ volume) 15 U/L 5-34 Serum or plasma alanine aminotransferase measurement (enzymatic activity/volume ) 19 U/L 0-55 Serum or plasma protein measurement (mass/volume) 6.2 g/dL 6.4-8.2 Serum or plasma albumin measurement (mass/volume) 3.4 g/dL 3.2-4.5 Complete urinalysis with reflex to culture - 06/01/17 16:16 Urine color determination YELLOW NRG Urine clarity determination CLEAR NRG Urine pH measurement by test strip 8 5- 9 Specific gravity of urine by test strip 1.010 1.016-1.022 Urine protein assay by test strip, semi-quantitative NEGATIVE NEGATIVE Urine glucose detection by automated test strip NEGATIVE NEGATIVE Erythrocytes detection in urine sediment by light microscopy NEGATIVE NEGATIVE Urine ketones detection by automated test strip NEGATIVE NEGATIVE Urine nitrite detection by test strip NEGATIVE NEGATIVE Urine total bilirubin detection by test strip NEGATIVE NEGATIVE Urine urobilinogen measurement by automated test strip (mass/volume) 1 mg/dL NORMAL Urine leukocyte esterase detection by dipstick NEGATIVE NEGATIVE Automated urine sediment erythrocyte count by microscopy (number/high power field) NONE NRG Automated urine sediment leukocyte count by microscopy (number/high power field ) NONE NRG Bacteria detection in urine sediment by light microscopy NONE NRG Squamous epithelial cells detection in urine sediment by light microscopy RARE NRG Crystals detection in urine sediment by light microscopy NONE NRG Casts detection in urine sediment by light microscopy NONE NRG Mucus detection in urine sediment by light microscopy NEGATIVE NRG Complete urinalysis with reflex to culture NO NRG Complete blood count (CBC) with automated white blood cell (WBC) differential - 06/02/17 05:30 Blood leukocytes automated count (number/volume) 9.6 10*3/ uL 4.3-11.0 Blood erythrocytes automated count (number/volume) 3.77 10*6 /uL 4.35-5.85 Venous blood hemoglobin measurement (mass/volume) 11.3 g/dL 13.3-17.7 Blood hematocrit (volume fraction) 34 % 40-54 Automated erythrocyte mean corpuscular volume 91 [foz_us] 80-99 Automated erythrocyte mean corpuscular hemoglobin (mass per erythrocyte) 30 pg 25-34 Automated erythrocyte mean corpuscular hemoglobin concentration measurement ( mass/volume) 33 g/dL 32-36 Automated erythrocyte distribution width ratio 14.5 % 10.0-14.5 Automated blood platelet count (count/volume) 237 10*3/uL 130-400 Automated blood platelet mean volume measurement 10.3 [foz_ us] 7.4-10.4 Automated blood neutrophils/100 leukocytes 76 % 42-75 Automated blood lymphocytes/100 leukocytes 13 % 12-44 Blood monocytes/100 leukocytes 6 % 0-12 Automated blood eosinophils/100 leukocytes 5 % 0-10 Automated blood basophils/100 leukocytes 0 % 0-10 Blood neutrophils automated count (number/volume) 7.3 10*3 1.8-7.8 Blood lymphocytes automated count (number/volume) 1.2 10*3 1.0-4.0 Blood monocytes automated count (number/volume) 0.6 10*3 0.0-1.0 Automated eosinophil count 0.4 10*3/uL 0.0-0.3 Automated blood basophil count (count/volume) 0.0 10*3/uL 0.0-0.1 Complete blood count (CBC) with automated white blood cell (WBC) differential - 06/03/17 07:39 Blood leukocytes automated count (number/volume) 18.4 10*3/ uL 4.3-11.0 Blood erythrocytes automated count (number/volume) 4.11 10*6 /uL 4.35-5.85 Venous blood hemoglobin measurement (mass/volume) 12.4 g/dL 13.3-17.7 Blood hematocrit (volume fraction) 36 % 40-54 Automated erythrocyte mean corpuscular volume 88 [foz_us] 80-99 Automated erythrocyte mean corpuscular hemoglobin (mass per erythrocyte) 30 pg 25-34 Automated erythrocyte mean corpuscular hemoglobin concentration measurement ( mass/volume) 34 g/dL 32-36 Automated erythrocyte distribution width ratio 13.6 % 10.0-14.5 Automated blood platelet count (count/volume) 341 10*3/uL 130-400 Automated blood platelet mean volume measurement 10.0 [foz_ us] 7.4-10.4 Automated blood neutrophils/100 leukocytes 88 % 42-75 Automated blood lymphocytes/100 leukocytes 6 % 12-44 Blood monocytes/100 leukocytes 5 % 0-12 Automated blood eosinophils/100 leukocytes 0 % 0-10 Automated blood basophils/100 leukocytes 0 % 0-10 Blood neutrophils automated count (number/volume) 16.3 10*3 1.8-7.8 Blood lymphocytes automated count (number/volume) 1.2 10*3 1.0-4.0 Blood monocytes automated count (number/volume) 1.0 10*3 0.0-1.0 Automated eosinophil count 0.0 10*3/uL 0.0-0.3 Automated blood basophil count (count/volume) 0.0 10*3/uL 0.0-0.1 Comprehensive metabolic panel - 06/03/17 07:39 Serum or plasma sodium measurement (moles/volume) 134 mmol/ L 135-145 Serum or plasma potassium measurement (moles/volume) 4.3 mmol/L 3.6-5.0 Serum or plasma chloride measurement (moles/volume) 97 mmol/ L 98-107 Carbon dioxide 27 mmol/L 21-32 Serum or plasma anion gap determination (moles/volume) 10 mmol/L 5-14 Serum or plasma urea nitrogen measurement (mass/volume) 19 mg/dL 7-18 Serum or plasma creatinine measurement (mass/volume) 0.67 mg /dL 0.60-1.30 Serum or plasma urea nitrogen/creatinine mass ratio 28 NRG Serum or plasma creatinine measurement with calculation of estimated glomerular filtration rate > NRG Serum or plasma glucose measurement (mass/volume) 154 mg/dL 70-105 Serum or plasma calcium measurement (mass/volume) 9.6 mg/dL 8.5-10.1 Serum or plasma total bilirubin measurement (mass/volume) 0.8 mg/dL 0.1-1.0 Serum or plasma alkaline phosphatase measurement (enzymatic activity/volume) 108 U/L 40-136 Serum or plasma aspartate aminotransferase measurement (enzymatic activity/ volume) 14 U/L 5-34 Serum or plasma alanine aminotransferase measurement (enzymatic activity/volume ) 24 U/L 0-55 Serum or plasma protein measurement (mass/volume) 7.4 g/dL 6.4-8.2 Serum or plasma albumin measurement (mass/volume) 3.9 g/dL 3.2-4.5 Vancomycin trough - 06/03/17 07:39 Vancomycin trough 7.6 ug/mL 10.0-20.0 Blood manual differential performed detection - 06/03/17 07:39 Blood monocytes/100 leukocytes 3 % NRG Manual blood segmented neutrophils/100 leukocytes 87 % NRG Manual blood lymphocytes/100 leukocytes 7 % NRG Blood lymphocytes variant/100 leukocytes 3 % NRG Blood erythrocyte morphology finding identification NORMAL NRG Encounters ACCT No. Visit Date/Time Discharge Status Pt. Type Provider Facility Loc./Unit Complaint [id number] 02/15/2015 15:13:00 02/15/2015 23: 59:59 CLS Outpatient [facility] [id number] 11/02/2014 14:40:00 11/02/2014 23: 59:59 CLS Outpatient [facility] BHANDARI MD [id number] 09/30/2014 11:24:00 09/30/2014 23: 59:59 CLS Outpatient BÁRBARA BHANDARI MD [id number] 08/26/2014 15:46:00 08/26/2014 23: 59:59 CLS Outpatient KRISTEL HINOJOSA APRN [id number] 08/17/2014 15:54:00 08/17/2014 23: 59:59 CLS Outpatient BÁRBARA BHANDARI MD [id number] 07/29/2014 11:35:00 07/29/2014 23: 59:59 CLS Outpatient KRISTEL HINOJOSA APRN [id number] 06/16/2014 08:25:00 06/16/2014 23: 59:59 CLS Outpatient BÁRBARA BHANDARI MD [id number] 06/10/2014 09:00:00 06/10/2014 23: 59:59 CLS Outpatient BÁRBARA BHANDARI MD [id number] 05/21/2014 10:43:00 05/21/2014 23: 59:59 CLS Outpatient ART QUINTERO DO Paulo [id number] 05/13/2014 09:31:00 05/13/2014 23: 59:59 CLS Outpatient HOSSEIN MAYES MD [id number] 04/30/2014 10:41:00 04/30/2014 23: 59:59 CLS Outpatient INGRID CLAY ART Bates [id number] 04/06/2014 17:47:00 04/06/2014 23: 59:59 CLS Outpatient KRISTEL HINOJOSA APRN [id number] 12/17/2013 11:31:00 12/17/2013 23: 59:59 CLS Outpatient BÁRBARA BHANDARI MD [id number] 08/06/2013 18:32:00 08/06/2013 23: 59:59 CLS Outpatient IZZY KUNZ APRN [id number] 07/30/2013 10:48:00 07/30/2013 23: 59:59 CLS Outpatient BÁRBARA BHANDARI MD [id number] 12/29/2012 15:51:00 12/29/2012 23: 59:59 CLS Outpatient BÁRBARA BHANDARI MD [id number] 06/11/2013 07:56:00 Document Registration [id number] 03/19/2013 14:38:00 Document Registration
== END 2017-05-31 11:45 | disposition home or self-care (01) ==
LOC: EDUNIT# 21:18 → ER 21:20 → 4TH 23:35 → UNDOADMOB 23:35 → 4TH 05-29 01:35 → UNDOADMOB 05-29 01:35 → SDC 05-29 01:35 → 4TH 05-29 01:35 → SDC 05-31 11:45 → UNDODISOB 05-31 11:45
PROVIDERS: ATTEND Family Medicine
DX: L02.412 Cutaneous abscess of left axilla (principal); E87.6 Hypokalemia; R21 Rash and other nonspecific skin eruption; I10 Essential (primary) hypertension; K21.9 Gastro-esophageal reflux disease without esophagitis; R07.89 Other chest pain
CPT/HCPCS: 10060; 36415; 71010; 80048; 80053; 80061; 81000; 83605; 83874; 84484; 85007; 85025; 85027; 85610; 85730; 87040; 87070; 87075; 87081; 87205; 93005; 96361; 96365; 96375; G0378

== ENCOUNTER 2017-06-01 14:12 | Observation (INO) | payer OTHER ==
[~2017-06-01] VITALS: Ht 172.7 cm; Wt 96.2 kg
[~2017-06-01 14:12] MED LIST changes: +AMLO5TAB2 PO; +CELE200C PO; +GABA-488 PO; +ONDN4T PO; +SILD50TA PO; +SULF1TAB35 PO
[2017-06-01] MEDS ORDERED: NS IV 1000 ML 1,000 ML IV SCH (15:00)
[2017-06-01] MEDS ORDERED: fentaNYL INJECTION 100 MCG/2 ML AMP IVP ONE (15:00)
[2017-06-01 15:01] LABS: BASOPHILS % (AUTO) 0 % (0-10); EOSINOPHILS # (AUTO) 0.3 10^3/uL (0.0-0.3); EOSINOPHILS % (AUTO) 3 % (0-10); LYMPHOCYTES # (AUTO) 1.6 X 10^3 (1.0-4.0); LYMPHOCYTES % (AUTO) 18 % (12-44); MEAN CORPUSCULAR HEMOGLOBIN 30 PG (25-34); MEAN CORPUSCULAR HGB CONC 34 G/DL (32-36); MEAN CORPUSCULAR VOLUME 90 FL (80-99); MEAN PLATELET VOLUME 10.2 FL (7.4-10.4); MONOCYTES # (AUTO) 0.7 X 10^3 (0.0-1.0); MONOCYTES % (AUTO) 8 % (0-12); NEUTROPHILS # (AUTO) 6.3 X 10^3 (1.8-7.8); NEUTROPHILS % (AUTO) 71 % (42-75); PLATELET COUNT 260 10^3/uL (130-400); RED CELL DISTRIBUTION WIDTH 14.3 % (10.0-14.5); WHITE BLOOD COUNT 8.9 10^3/uL (4.3-11.0)
[2017-06-01 15:15] LABS: ALANINE AMINOTRANSFERASE 19 U/L (0-55); ALBUMIN 3.4 GM/DL (3.2-4.5); ANION GAP 8 MMOL/L (5-14); ASPARTATE AMINO TRANSFERASE 15 U/L (5-34); BILIRUBIN,TOTAL 0.6 MG/DL (0.1-1.0); BLOOD UREA NITROGEN 14 MG/DL (7-18); BUN/CREATININE RATIO 21; CALCIUM 8.1 MG/DL (8.5-10.1); CARBON DIOXIDE 29 MMOL/L (21-32); CHLORIDE 101 MMOL/L (98-107); CREATININE SERUM 0.67 MG/DL (0.60-1.30); GFR ESTIMATED > 60; GLUCOSE 97 MG/DL (70-105); POTASSIUM 3.3 MMOL/L (3.6-5.0); SODIUM 138 MMOL/L (135-145); TOTAL PROTEIN 6.2 GM/DL (6.4-8.2)
--- NOTE | 2017-06-01 15:42 | ED Integumentary General ---
General Chief Complaint: Skin/Wound Problems Stated Complaint: SPIDER BITE/FLUID BUILD UP/CHEST AND NECK PAIN Nursing Triage Note: pt reports increased swelling/pain on l wound site. pt was just released from hospital yesterday after having it cleaned out in surgery and packed. Source: patient Exam Limitations: no limitations History of Present Illness Time seen by provider: 15:15 Initial Comments The patient is a 56-year-old male who presents with a complaint of spider bite in the area of the left axilla. Records show that he had a incision and drainage attempted by Dr. Lyon on 05/29. Operative record suggests that little purulent material was obtained. Culture is negative to this point. He now has developed a reddened area down the left mid axillary line to an area above the left anterior superior iliac crest. There is erythema on the back in the area of the left posterior axillary line and over the posterior iliac crest. He states there is no pain or edema in this area. He denies fever or sweats. Timing/Duration: week Location: torso Possible Cause: no cause identified Associated Symptoms: change in skin texture, edema, rash, other (erythema) Allergies and Home Medications Allergies Coded Allergies: codeine (Verified Allergy, Unknown, Pt has received Lortab & morphine in the past, 05/30/17) Home Medications Amlodipine Besylate 5 Mg Tablet, 5 MG PO DAILY, (Reported) Atorvastatin Calcium 10 Mg Tablet, 10 MG PO DAILY, (Reported) Celecoxib 200 Mg Capsule, 200 MG PO DAILY, (Reported) Citalopram Hydrobromide 20 Mg Tablet, 20 MG PO DAILY, (Reported) Cyclobenzaprine HCl 10 Mg Tablet, 10 MG PO TID PRN for MUSCLE SPASMS, (Reported) Famotidine 20 Mg Tablet, 20 MG PO DAILY, (Reported) Gabapentin 300 Mg Capsule, 300 MG PO DAILY, (Reported) Sildenafil Citrate 50 Mg Tablet, 100 MG PO DAILY PRN for ED, (Reported) TAKES 2 (50MG) TABLETS Sulfamethoxazole/Trimethoprim 1 Each Tablet, 1 TAB PO BID WITH MEALS, #20 Prescribed by: ABRIL RODGERS on 05/30/17 1131 Constitutional: see HPI EENTM: no symptoms reported Respiratory: no symptoms reported Cardiovascular: no symptoms reported Gastrointestinal: no symptoms reported Genitourinary: no symptoms reported Musculoskeletal: no symptoms reported Skin: see HPI, change in color (erythema), rash Psychiatric/Neurological: No Symptoms Reported Endocrine: No Symptoms Reported Hematologic/Lymphatic: No Symptoms Reported Past Kevwhui-Gzyoij-Zmoisz Hx Patient Social History Alcohol Use: Occasionally Uses Recreational Drug Use: No Smoking Status: Never a Smoker Recent Foreign Travel: No Contact w/Someone Who Travel: No Recent Infectious Disease Expo: No Recent Hopitalizations: No Immunizations Up To Date Date of Influenza Vaccine: Oct 21, 2014 Seasonal Allergies Seasonal Allergies: No Surgeries HX Surgeries: Yes (R KNEE/BACK) Respiratory Hx Respiratory Disorders: No Cardiovascular Hx Cardiac Disorders: Yes Cardiac Disorders: Hypertension Neurological Hx Neurological Disorders: Yes (cervical stenosis) Neurological Disorders: Neuropathy Reproductive System Hx Reproductive Disorders: No Genitourinary Hx Genitourinary Disorders: Yes (Retention) Gastrointestinal Hx Gastrointestinal Disorders: Yes Gastrointestinal Disorders: Gastroesophageal Reflux Musculoskeletal Hx Musculoskeletal Disorders: Yes Musculoskeletal Disorders: Arthritis Endocrine Hx Endocrine Disorders: No HEENT HX ENT Disorders: No Cancer Hx Cancer: No Psychosocial Hx Psychiatric Problems: No Integumentary HX Skin/Integumentary Disorder: No Blood Transfusions Hx Blood Disorders: No Family Medical History Significant Family History: Heart Disease, CAD Over 55 Years Old Family Medial History: FH: congestive heart failure 19 MOTHER Myocardial infarction 19 FATHER Physical Exam Vital Signs Vital Sign - Last 12Hours 06/01/17 14:38 Temp 98.0 Pulse 109 Resp 22 B/P (MAP) 127/85 Pulse Ox 97 Capillary Refill : Less Than 3 Seconds General Appearance: WD/WN, no apparent distress HEENT: normal ENT inspection Neck: full range of motion Cardiovascular: normal peripheral pulses, regular rate, rhythm, no edema, no gallop, no JVD, no murmur Respiratory: chest non-tender, lungs clear, normal breath sounds, no respiratory distress, no accessory muscle use Gastrointestinal: normal bowel sounds Skin: other (see comments) Skin Problem Location: torso Comments The left axilla shows a horizontally oriented ovoid red area with thickening of the skin. There is a packing in place from the I&D. There is a large area of erythema which is macular over the left anterior superior iliac crest. This extends posteriorly over the posterior iliac crest. In addition there is a corresponding area of erythema at the left posterior axillary line and medially towards the scapula. Progress/Results/Core Measures Results/Orders Lab Results Laboratory Tests Test 06/01/17 14:32 06/01/17 16:16 Range/Units White Blood Count 8.9 4.3-11.0 10^3/uL Red Blood Count 3.80 L 4.35-5.85 10^6/uL Hemoglobin 11.5 L 13.3-17.7 G/DL Hematocrit 34 L 40-54 % Mean Corpuscular Volume 90 80-99 FL Mean Corpuscular Hemoglobin 30 25-34 PG Mean Corpuscular Hemoglobin Concent 34 32-36 G/DL Red Cell Distribution Width 14.3 10.0-14.5 % Platelet Count 260 130-400 10^3/uL Mean Platelet Volume 10.2 7.4-10.4 FL Neutrophils (%) (Auto) 71 42-75 % Lymphocytes (%) (Auto) 18 12-44 % Monocytes (%) (Auto) 8 0-12 % Eosinophils (%) (Auto) 3 0-10 % Basophils (%) (Auto) 0 0-10 % Neutrophils # (Auto) 6.3 1.8-7.8 X 10^3 Lymphocytes # (Auto) 1.6 1.0-4.0 X 10^3 Monocytes # (Auto) 0.7 0.0-1.0 X 10^3 Eosinophils # (Auto) 0.3 0.0-0.3 10^3/uL Basophils # (Auto) 0.0 0.0-0.1 10^3/uL Sodium Level 138 135-145 MMOL/L Potassium Level 3.3 L 3.6-5.0 MMOL/L Chloride Level 101 98-107 MMOL/L Carbon Dioxide Level 29 21-32 MMOL/L Anion Gap 8 5-14 MMOL/L Blood Urea Nitrogen 14 7-18 MG/DL Creatinine 0.67 0.60-1.30 MG/DL Estimat Glomerular Filtration Rate > 60 BUN/Creatinine Ratio 21 Glucose Level 97 70-105 MG/DL Calcium Level 8.1 L 8.5-10.1 MG/DL Total Bilirubin 0.6 0.1-1.0 MG/DL Aspartate Amino Transf (AST/SGOT) 15 5-34 U/L Alanine Aminotransferase (ALT/SGPT) 19 0-55 U/L Alkaline Phosphatase 82 40-136 U/L Total Protein 6.2 L 6.4-8.2 GM/DL Albumin 3.4 3.2-4.5 GM/DL Urine Color YELLOW Urine Clarity CLEAR Urine pH 8 5-9 Urine Specific [place] 1.010 L 1.016-1.022 Urine Protein NEGATIVE NEGATIVE Urine Glucose (UA) NEGATIVE NEGATIVE Urine Ketones NEGATIVE NEGATIVE Urine Nitrite NEGATIVE NEGATIVE Urine Bilirubin NEGATIVE NEGATIVE Urine Urobilinogen 1 NORMAL MG/DL Urine Leukocyte Esterase NEGATIVE NEGATIVE Urine RBC (Auto) NEGATIVE NEGATIVE Urine RBC NONE /HPF Urine WBC NONE /HPF Urine Squamous Epithelial Cells RARE /HPF Urine Crystals NONE /LPF Urine Bacteria NONE /HPF Urine Casts NONE /LPF Urine Mucus NEGATIVE /LPF Urine Culture Indicated NO Vital Signs/I&O Vital Sign - Last 12Hours 06/01/17 14:38 Temp 98.0 Pulse 109 Resp 22 B/P (MAP) 127/85 Pulse Ox 97 Blood Pressure Mean: 99 Departure Communication Progress Notes 1550 reviewed with Mr. Rangel. In view of a normal white count and no fever in the previous nearly identical presentation in 2009 it would appear that steroid should be added to the mix. I have discussed this with Dr. Avilez who is on-call for [facility] at 1559 and we will readmit as a observation and initiate steroid therapy. We will still blanket with broad-spectrum antibiotics and asked Dr. Cooper to examine the axillary incision site. Impression Impression: Primary Impression: abscess/secondary erythematous eruption Disposition: ADMITTED INPATIENT Condition: Stable/Unchanged Decision to Admit Reason: Admit from ER (General) Decision to Admit/Date: Jun 01, 2017 Time/Decision to Admit Time: 16:01 Departure-Patient Inst. Referrals: [facility] [place] (PCP/Family) Primary Care Physician DEJA ARCHIBALD MD Jun 01, 2017 15:42
[2017-06-01 16:22] LABS: BILIRUBIN,URINE NEGATIVE (NEGATIVE); KETONES,URINE NEGATIVE (NEGATIVE); LEUKOCYTE ESTERASE ,URINE NEGATIVE (NEGATIVE); NITRITE,URINE NEGATIVE (NEGATIVE); PH,URINE 8 (5-9); PROTEIN,URINE NEGATIVE (NEGATIVE); UROBILINOGEN,URINE 1 MG/DL (NORMAL)
[2017-06-01 16:27] LABS: SQUAMOUS EPITHELIAL CELL,UR RARE /HPF
[2017-06-01 16:45] VITALS: BP 133/77
[2017-06-01] MEDS ORDERED: IBUPROFEN 600 MG (MOTRIN) TAB PO ONE (17:00)
[2017-06-01] MEDS ORDERED: VANCOMYCIN 1000 MG/VIAL ONE (17:01)
[2017-06-01] MEDS ORDERED: NS (IVPB) 250 ML ONE (17:02)
[2017-06-01 19:20] VITALS: BP 118/75
[2017-06-01] MEDS: fentaNYL INJECTION 100 MCG/2 ML AMP IVP PRN (23:55)
[2017-06-01] MEDS: HYDROcodone/APAP 7.5 MG/325 MG (LORTAB, LORCET PLUS) TABLET PO PRN (23:55)
[2017-06-02] MEDS ORDERED: IBUPROFEN 600 MG (MOTRIN) TAB PO SCH
[2017-06-02] MEDS: HYDROcodone/APAP 7.5 MG/325 MG (LORTAB, LORCET PLUS) TABLET PO PRN ×4 (04:35→18:48)
[2017-06-02 04:40] VITALS: BP 129/77
[2017-06-02] MEDS: fentaNYL INJECTION 100 MCG/2 ML AMP IVP PRN ×4 (05:05→21:17)
[2017-06-02 06:28] LABS: BASOPHILS % (AUTO) 0 % (0-10); EOSINOPHILS # (AUTO) 0.4 10^3/uL (0.0-0.3); EOSINOPHILS % (AUTO) 5 % (0-10); LYMPHOCYTES # (AUTO) 1.2 X 10^3 (1.0-4.0); LYMPHOCYTES % (AUTO) 13 % (12-44); MEAN CORPUSCULAR HEMOGLOBIN 30 PG (25-34); MEAN CORPUSCULAR HGB CONC 33 G/DL (32-36); MEAN CORPUSCULAR VOLUME 91 FL (80-99); MEAN PLATELET VOLUME 10.3 FL (7.4-10.4); MONOCYTES # (AUTO) 0.6 X 10^3 (0.0-1.0); MONOCYTES % (AUTO) 6 % (0-12); NEUTROPHILS # (AUTO) 7.3 X 10^3 (1.8-7.8); NEUTROPHILS % (AUTO) 76 % (42-75); PLATELET COUNT 237 10^3/uL (130-400); RED BLOOD COUNT 3.77 10^6/uL (4.35-5.85); RED CELL DISTRIBUTION WIDTH 14.5 % (10.0-14.5); WHITE BLOOD COUNT 9.6 10^3/uL (4.3-11.0)
[2017-06-02] MEDS ORDERED: NS IV 1000 ML 1,000 ML IV SCH (07:15)
[2017-06-02] MEDS ORDERED: IBUPROFEN 600 MG (MOTRIN) TAB PO PRN (07:15)
[2017-06-02 08:00] VITALS: BP 123/80
[2017-06-02] MEDS: VANCOMYCIN 1500 MG/NS 500 ML IVPB IV SCH ×4 (09:43→21:21)
[2017-06-02] MEDS: methylPREDNISolone 125 MG (Solu-MEDROL) VIAL IVP SCH ×2 (09:43→18:48)
--- NOTE | 2017-06-02 10:41 | Progress Note (SOAP) ---
Subjective Date Seen by Provider: Jun 02, 2017 Time Seen by Provider: 10:00 Subjective/Events-last exam Patient seen with Dr. Cooper. Patient reports doing well. Still complains of left axilla region pain. no n/v. no fever/chills. tolerating diet. Review of Systems General: No Chills, No Night Sweats Gastrointestinal: No: Abdominal Pain, Nausea, Vomiting Objective Exam Vital Signs Date Time Temp Pulse Resp B/P (MAP) Pulse Ox O2 Delivery O2 Flow Rate FiO2 06/02/17 08:00 98.2 95 20 123/80 95 Room Air 06/02/17 04:40 98.0 92 22 129/77 95 Room Air 06/01/17 19:20 99.1 87 22 118/75 98 Room Air 06/01/17 16:45 97.8 85 22 133/77 95 Room Air 06/01/17 16:45 97.9 102 18 99 06/01/17 14:38 98.0 109 22 127/85 97 I & O 06/02/17 07:00 Intake Total 3650 ml Output Total 1900 ml Balance 1750 ml Capillary Refill : Less Than 3 Seconds General Appearance: No Apparent Distress, WD/WN HEENT: PERRL/EOMI Neck: Full Range of Motion, Normal Inspection, Non Tender, Supple Respiratory: Chest Non Tender, Lungs Clear, Normal Breath Sounds, No Accessory Muscle Use, No Respiratory Distress, Accessory Muscle Use Cardiovascular: Regular Rate, Rhythm, No Murmur Gastrointestinal: normal bowel sounds, non tender, soft Extremity: Normal Capillary Refill, Normal Inspection, Normal Range of Motion, Non Tender, No Calf Tenderness Neurologic/Psychiatric: Alert, Oriented x3 Skin: Normal Color, Warm/Dry, Other (There is an incision of the left axilla region that is approx. 5cm and approx 4-5 cm in depth. There is surrounding redness and erythema. no drainage noted. This is soft but painful to palpation. Packing and dressing changed.) Results Lab Laboratory Tests 06/01/17 14:32: White Blood Count 8.9, Red Blood Count 3.80L, Hemoglobin 11.5L, Hematocrit 34L, Mean Corpuscular Volume 90, Mean Corpuscular Hemoglobin 30, Mean Corpuscular Hemoglobin Concent 34, Red Cell Distribution Width 14.3, Platelet Count 260, Mean Platelet Volume 10.2, Neutrophils (%) (Auto) 71, Lymphocytes (%) (Auto) 18 , Monocytes (%) (Auto) 8, Eosinophils (%) (Auto) 3, Basophils (%) (Auto) 0, Neutrophils # (Auto) 6.3, Lymphocytes # (Auto) 1.6, Monocytes # (Auto) 0.7, Eosinophils # (Auto) 0.3, Basophils # (Auto) 0.0, Sodium Level 138, Potassium Level 3.3L, Chloride Level 101, Carbon Dioxide Level 29, Anion Gap 8, Blood Urea Nitrogen 14, Creatinine 0.67, Estimat Glomerular Filtration Rate > 60, BUN/ Creatinine Ratio 21, Glucose Level 97, Calcium Level 8.1L, Total Bilirubin 0.6, Aspartate Amino Transf (AST/SGOT) 15, Alanine Aminotransferase (ALT/SGPT) 19, Alkaline Phosphatase 82, Total Protein 6.2L, Albumin 3.4 06/01/17 16:16: Urine Color YELLOW, Urine Clarity CLEAR, Urine pH 8, Urine Specific [place] 1.010L, Urine Protein NEGATIVE, Urine Glucose (UA) NEGATIVE, Urine Ketones NEGATIVE, Urine Nitrite NEGATIVE, Urine Bilirubin NEGATIVE, Urine Urobilinogen 1 , Urine Leukocyte Esterase NEGATIVE, Urine RBC (Auto) NEGATIVE, Urine RBC NONE, Urine WBC NONE, Urine Squamous Epithelial Cells RARE, Urine Crystals NONE, Urine Bacteria NONE, Urine Casts NONE, Urine Mucus NEGATIVE, Urine Culture Indicated NO 06/02/17 05:30: White Blood Count 9.6, Red Blood Count 3.77L, Hemoglobin 11.3L, Hematocrit 34L, Mean Corpuscular Volume 91, Mean Corpuscular Hemoglobin 30, Mean Corpuscular Hemoglobin Concent 33, Red Cell Distribution Width 14.5, Platelet Count 237, Mean Platelet Volume 10.3, Neutrophils (%) (Auto) 76H, Lymphocytes (%) (Auto) 13 , Monocytes (%) (Auto) 6, Eosinophils (%) (Auto) 5, Basophils (%) (Auto) 0, Neutrophils # (Auto) 7.3, Lymphocytes # (Auto) 1.2, Monocytes # (Auto) 0.6, Eosinophils # (Auto) 0.4H, Basophils # (Auto) 0.0 Assessment/Plan Assessment/Plan Assess & Plan/Chief Complaint A 56 year old male with cellulitis of the left axilla region who is S/P I&D. Continue with Daily dressing changes. IV abx and pain medication. Ok from surgical standpoint to be discharged and follow up with Dr. Lyon. Clinical Quality Measures DVT/VTE Risk/Contraindication: Risk Factor Score Per Nursin RFS Level Per Nursing on Admit: 3=High ERYN DEJESUS SOFTWARE DEVELOPMENT ANALYST Jun 02, 2017 10:41
[2017-06-02 12:00] VITALS: BP 127/90
--- NOTE | 2017-06-02 12:06 | History & Physical-Hospitalist ---
HPI History of Present Illness: HPI/Chief Complaint CC: Left axilla abscess s/p I&D 05/29/[address] Lyon now with systemic response of rash improved on steroids similar to 2010 episode HPI: This is a 56-year-old male clinic patient at [facility] the presents following an uncomplicated hospital course that included an incision and drainage by Dr. Lyon on 05/29/17 last week but then returned back to the emergency room with an abdominal and trunk rash that was similar to episode in 2010 that responded to IV steroids but it was concerning enough to place in the hospital maintain IV steroids and IV antibiotic empirically treated to be sure that nothing worsened in place patient risk for sepsis. Dr. Cooper who is on-call for Dr. Lyon saw the patient in consultation and found to have no concern for another drainage but did redo the packing. Source: patient Exam Limitations: no limitations Date Seen 06/02/17 Time Seen by Provider: 10:15 Attending Physician Jayleen Avilez DO PCP [facility] Referring Physician Date of Admission Jun 01, 2017 at 16:11 Home Medications & Allergies Home Medications Reviewed patient Home Medication Reconciliation Form Allergies Allergies Coded Allergies codeine (Verified Allergy, Unknown, Pt has received Lortab & morphine in the past, 05/30/17) Past Nhowvoe-Klgbma-Ooiuih Hx Patient Social History Marrital Status: single Alcohol Use: Occasionally Uses Recreational Drug Use: No Smoking Status: Never a Smoker Physical Abuse Screen: No Sexual Abuse: No Recent Foreign Travel: No Contact w/other who traveled: No Recent Hopitalizations: No Recent Infectious Disease Expo: No Immunizations Up To Date Date of Influenza Vaccine: Oct 21, 2014 Seasonal Allergies Seasonal Allergies: No Surgeries HX Surgeries: Yes (R KNEE/BACK) Respiratory Hx Respiratory Disorders: No Cardiovascular Hx Cardiovascular Disorders: Yes Cardiac Disorders: Hypertension Neurological Hx Neurological Disorders: Yes (cervical stenosis) Neurological Disorders: Neuropathy Reproductive System Hx Reproductive Disorders: No Sexually Transmitted Disease: No HIV/AIDS: No Genitourinary Hx Genitourinary Disorders: Yes (Retention) Gastrointestinal Hx Gastrointestinal Disorders: Yes Gastrointestinal Disorders: Gastroesophageal Reflux Musculoskeletal Hx Musculoskeletal Disorders: Yes Musculoskeletal Disorders: Arthritis Endocrine Hx Endocrine Disorders: No HEENT HX ENT Disorders: No Cancer Hx Cancer: No Psychosocial Hx Psychiatric Problems: No Integumentary HX Skin/Integumentary Disorder: No Blood Transfusions Hx Blood Disorders: No Adverse Reaction to a Blood Tr: No Family Medical History Significant Family History: Heart Disease, CAD Over 55 Years Old Family Hx: FH: congestive heart failure 19 MOTHER Myocardial infarction 19 FATHER Review of Systems Constitutional: see HPI EENTM: no symptoms reported Respiratory: no symptoms reported Cardiovascular: no symptoms reported Gastrointestinal: no symptoms reported Genitourinary: no symptoms reported Musculoskeletal: no symptoms reported Skin: see HPI, rash Psychiatric/Neurological: No Symptoms Reported All Other Systems Reviewed Negative Unless Noted: Yes Physical Exam Physical Exam Vital Signs Vital Sign - Last 12Hours 06/01/17 06/01/17 14:38 16:45 Temp 98.0 Pulse 109 Resp 22 B/P (MAP) 127/85 Pulse Ox 97 O2 Delivery Room Air Capillary Refill : Less Than 3 Seconds General Appearance: No Apparent Distress, WD/WN, Chronically ill, Obese Eyes: Bilateral Eye Normal Inspection, Bilateral Eye PERRL HEENT: PERRL/EOMI, Normal ENT Inspection, Pharynx Normal Neck: Full Range of Motion, Normal Inspection, Non Tender, Supple, Carotid Bruit Respiratory: Chest Non Tender, Lungs Clear, Normal Breath Sounds, No Accessory Muscle Use, No Respiratory Distress Cardiovascular: Regular Rate, Rhythm, No Edema, No Gallop, No JVD, No Murmur, Normal Peripheral Pulses Gastrointestinal: Normal Bowel Sounds, No Organomegaly, No Pulsatile Mass, Non Tender, Soft Back: Normal Inspection, No CVA Tenderness, No Vertebral Tenderness Extremity: Normal Capillary Refill, Normal Inspection, Normal Range of Motion, Non Tender, No Calf Tenderness, No Pedal Edema Neurologic/Psychiatric: Alert, Oriented x3, No Motor/Sensory Deficits, Normal Mood/Affect Skin: Normal Color, Warm/Dry, Rash (mucm improved from prior assessment yesterday in the ER only pink left flank) Lymphatic: No Adenopathy Results Results/Procedures Lab Laboratory Tests 06/01/17 14:32 06/02/17 05:30 Assessment/Plan Admission Diagnosis Assessment: Left axilla abscess status post incision incision and drainage by Dr. Lyon last week Systemic response of abscess responding to steroids similar to 2010 episode Hypertension Cervical stenosis with subsequent neuropathy Assessment and Plan Plan: Maintain on IV steroids Maintain on Joseph I appreciate general surgery consultation and redo of packing Pain control Ambulate Check labs in a.m. Discharge home tomorrow Clinical Quality Measures DVT/VTE Risk/Contraindication: Risk Factor Score Per Nursin RFS Level Per Nursing on Admit: 3=High JAYLEEN AVILEZ DO Jun 02, 2017 12:06
[2017-06-02 16:25] VITALS: BP 161/86
[2017-06-02 19:32] VITALS: BP 146/89
[2017-06-02] MEDS ORDERED: ZOLPIDEM 5 MG (AMBIEN) TAB PO SCH (21:00)
[2017-06-02] MEDS: DOCUSATE SODIUM 100 MG (COLACE) CAP PO SCH (21:18)
[2017-06-03] VITALS: BP 154/88
[2017-06-03] MEDS ORDERED: diphenhydrAMINE 25 MG TAB (BENADRYL) PO PRN (00:45)
[2017-06-03] MEDS: fentaNYL INJECTION 100 MCG/2 ML AMP IVP PRN (04:58)
[2017-06-03] MEDS: methylPREDNISolone 125 MG (Solu-MEDROL) VIAL IVP SCH (06:51)
[2017-06-03] MEDS: HYDROcodone/APAP 7.5 MG/325 MG (LORTAB, LORCET PLUS) TABLET PO PRN (06:52)
[2017-06-03] MEDS ORDERED: TROUGH ORDER-PHARMACY XX NR (07:00)
[2017-06-03 07:53] LABS: BASOPHILS % (AUTO) 0 % (0-10); EOSINOPHILS % (AUTO) 0 % (0-10); LYMPHOCYTES # (AUTO) 1.2 X 10^3 (1.0-4.0); LYMPHOCYTES % (AUTO) 6 % (12-44); MEAN CORPUSCULAR HEMOGLOBIN 30 PG (25-34); MEAN CORPUSCULAR HGB CONC 34 G/DL (32-36); MEAN CORPUSCULAR VOLUME 88 FL (80-99); MONOCYTES % (AUTO) 5 % (0-12); NEUTROPHILS # (AUTO) 16.3 X 10^3 (1.8-7.8); NEUTROPHILS % (AUTO) 88 % (42-75); PLATELET COUNT 341 10^3/uL (130-400); RED BLOOD COUNT 4.11 10^6/uL (4.35-5.85); RED CELL DISTRIBUTION WIDTH 13.6 % (10.0-14.5); WHITE BLOOD COUNT 18.4 10^3/uL (4.3-11.0)
[2017-06-03 08:12] LABS: ALANINE AMINOTRANSFERASE 24 U/L (0-55); ALBUMIN 3.9 GM/DL (3.2-4.5); ANION GAP 10 MMOL/L (5-14); ASPARTATE AMINO TRANSFERASE 14 U/L (5-34); BILIRUBIN,TOTAL 0.8 MG/DL (0.1-1.0); BLOOD UREA NITROGEN 19 MG/DL (7-18); BUN/CREATININE RATIO 28; CALCIUM 9.6 MG/DL (8.5-10.1); CARBON DIOXIDE 27 MMOL/L (21-32); CHLORIDE 97 MMOL/L (98-107); CREATININE SERUM 0.67 MG/DL (0.60-1.30); GFR ESTIMATED > 60; GLUCOSE 154 MG/DL (70-105); POTASSIUM 4.3 MMOL/L (3.6-5.0); SODIUM 134 MMOL/L (135-145); TOTAL PROTEIN 7.4 GM/DL (6.4-8.2)
[2017-06-03 08:20] LABS: LYMPHOCYTES % (MANUAL) 7 %; NEUTROPHILS % (MANUAL) 87 %; REACTIVE LYMPHOCYTES 3 %
[2017-06-03] MEDS: VANCOMYCIN 1500 MG/NS 500 ML IVPB IV SCH ×2 (08:30)
[2017-06-03 08:50] VITALS: BP 172/84
[2017-06-03] MEDS ORDERED: VANCOMYCIN 1500 MG/NS 500 ML IVPB IV NR ×2 (09:01)
--- NOTE | 2017-06-03 09:15 | CONSULTATION REPORT ---
DATE OF CONSULTATION: 06/01/2017 PRIMARY CARE PHYSICIAN: Dr. Chavez. Mr. Jelani Curry is a 56-year-old male who was admitted on 05/29/2017 after he thought he was bit by a spider along the left lateral chest. Over time, he developed redness, swelling and erythema as well as sinus tract and small amount of drainage. On 05/31/2017 he underwent incision and drainage of potential abscess. However, there was not much drainage at the time. He was discharged home; however returned the following day due to increased swelling and pain. Upon examination, there is continued redness, erythema and pain upon palpation. The previous incision was opened and packed with a good granulation bed and there does not appear to be any fluctuance to indicate any abscess or any sinus tract. PAST MEDICAL HISTORY: 1. Hypertension. 2. Obesity. PAST SURGERIES: Incision and drainage of left lateral chest. ALLERGIES: CODEINE MEDICATIONS: 1. Amlodipine 5 mg daily. 2. Atorvastatin 10 mg daily. 3. Celebrex 200 mg daily. 4. Citalopram 20 mg daily. 5. Cyclobenzaprine 10 mg daily. 6. Famotidine 20 mg daily. 7. Gabapentin 300 mg daily. 8. Sidenafil 50 mg daily. 9. Bactrim b.i.d. SOCIAL HISTORY: Negative smoke. Negative alcohol. FAMILY HISTORY: Mother CHF, coronary artery disease. Father, myocardial infarction. VITAL SIGNS: Temperature 97.8, blood pressure 133/77, pulse 85, respirations 22, pulse ox 95% on room air. REVIEW OF SYSTEMS: This is a well-nourished male, currently in no acute distress. He is not experiencing shortness of breath or difficulty breathing. No chest pain, palpitations, diaphoresis. No nausea, vomiting, no diarrhea, constipation. No fever, chills, no recent inadvertent weight loss. All other review of systems negative. PHYSICAL EXAMINATION: CHEST: Good breath sounds bilaterally, clear. HEART: Regular. No murmurs. EXTREMITIES: No lower extremity edema. Negative Homans sign.. HEENT: No scleral icterus. No cervical lymphadenopathy. ABDOMEN: Soft, nontender, nondistended. SKIN: Along the left lateral chest is an open wound approximately 3 cm in size which is packed with a good granulation bed. There is a surrounding area of redness and erythema. However, there is no fluctuance to indicate any abscess. LABS: WBC 8.9, hemoglobin 11.5, hematocrit 34, platelets 260, BUN 14, creatinine 0.67. ASSESSMENT AND PLAN: This is a 56-year-old male with cellulitis of the left lateral chest, which may have been caused by spider bite and either skin necrosis and secondary bacterial infection versus an allergic reaction. He will be admitted and started on antibiotics, as well as steroids. We will continue to monitor his progress. Job ID: [id number] Dictated Date: 06/01/2017 18:38:00 Assessment Nurse Practitioner Date: 06/03/2017 08:53:53/gerardo
--- NOTE | 2017-06-03 09:31 | Discharge Summary-Hospitalist ---
Diagnosis/Chief Complaint Date of Admission Jun 01, 2017 at 16:11 Date of Discharge Admission Diagnosis Assessment: Left axilla abscess status post incision incision and drainage by Dr. Lyon last week Systemic response of abscess responding to steroids similar to 2010 episode Hypertension Cervical stenosis with subsequent neuropathy Discharge Diagnosis Assessment: Left axilla abscess status post incision incision and drainage by Dr. Lyon last week Systemic response of abscess responding to steroids similar to 2010 episode Hypertension Cervical stenosis with subsequent neuropathy Plan: Maintain on IV steroids Maintain on Joseph I appreciate general surgery consultation and redo of packing Pain control Ambulate Check labs in a.m. Discharge home tomorrow Reason Hospital Visit/Course CC: Left axilla abscess s/p I&D 05/29/[address] Lyon now with systemic response of rash improved on steroids similar to 2010 episode HPI: This is a 56-year-old male clinic patient at [facility] the presents following an uncomplicated hospital course that included an incision and drainage by Dr. Lyon on 05/29/17 last week but then returned back to the emergency room with an abdominal and trunk rash that was similar to episode in 2009 that responded to IV steroids but it was concerning enough to place in the hospital maintain IV steroids and IV antibiotic empirically treated to be sure that nothing worsened in place patient risk for sepsis. Dr. Cooper who is on-call for Dr. Lyon saw the patient in consultation and found to have no concern for another drainage but did redo the packing. Pt had a brief hospital course. All cx were negative so abx were not continued at [facility]. Steroid resolved the systemic urticarial rash on his trunk similar to episode in 2009. He was sent home on brief course of steroids and close f/u with [facility] and Dr Lyon. Discharge Summary Discharge Physical Examination Allergies: Coded Allergies: codeine (Verified Allergy, Unknown, Pt has received Lortab & morphine in the past, 05/30/17) Vitals & I&Os Vital Signs Date Time Temp Pulse Resp B/P (MAP) Pulse Ox O2 Delivery O2 Flow Rate FiO2 06/03/17 10:18 121 21 172/84 90 Room Air 06/03/17 08:50 96.6 Hospital Course Labs (last 24 hrs) Laboratory Tests 06/03/17 07:39: White Blood Count 18.4H, Red Blood Count 4.11L, Hemoglobin 12.4L, Hematocrit 36L , Mean Corpuscular Volume 88, Mean Corpuscular Hemoglobin 30, Mean Corpuscular Hemoglobin Concent 34, Red Cell Distribution Width 13.6, Platelet Count 341, Mean Platelet Volume 10.0, Neutrophils (%) (Auto) 88H, Lymphocytes (%) (Auto) 6L , Monocytes (%) (Auto) 5, Eosinophils (%) (Auto) 0, Basophils (%) (Auto) 0, Neutrophils # (Auto) 16.3H, Lymphocytes # (Auto) 1.2, Monocytes # (Auto) 1.0, Eosinophils # (Auto) 0.0, Basophils # (Auto) 0.0, Neutrophils % (Manual) 87, Lymphocytes % (Manual) 7, Monocytes % (Manual) 3, Reactive Lymphocytes 3, Blood Morphology Comment NORMAL, Sodium Level 134L, Potassium Level 4.3, Chloride Level 97L, Carbon Dioxide Level 27, Anion Gap 10, Blood Urea Nitrogen 19H, Creatinine 0.67, Estimat Glomerular Filtration Rate > 60, BUN/Creatinine Ratio 28, Glucose Level 154H, Calcium Level 9.6, Total Bilirubin 0.8, Aspartate Amino Transf (AST/SGOT) 14, Alanine Aminotransferase (ALT/SGPT) 24, Alkaline Phosphatase 108, Total Protein 7.4, Albumin 3.9, Vancomycin Level Trough 7.6L Pending Labs Laboratory Tests 06/03/17 07:39: White Blood Count 18.4, Red Blood Count 4.11, Hemoglobin 12.4, Hematocrit 36, Mean Corpuscular Volume 88, Mean Corpuscular Hemoglobin 30, Mean Corpuscular Hemoglobin Concent 34, Red Cell Distribution Width 13.6, Platelet Count 341, Mean Platelet Volume 10.0, Neutrophils (%) (Auto) 88, Lymphocytes (%) (Auto) 6, Monocytes (%) (Auto) 5, Eosinophils (%) (Auto) 0, Basophils (%) (Auto) 0, Neutrophils # (Auto) 16.3, Lymphocytes # (Auto) 1.2, Monocytes # (Auto) 1.0, Eosinophils # (Auto) 0.0, Basophils # (Auto) 0.0, Neutrophils % (Manual) 87, Lymphocytes % (Manual) 7, Monocytes % (Manual) 3, Reactive Lymphocytes 3, Blood Morphology Comment NORMAL, Sodium Level 134, Potassium Level 4.3, Chloride Level 97, Carbon Dioxide Level 27, Anion Gap 10, Blood Urea Nitrogen 19, Creatinine 0.67, Estimat Glomerular Filtration Rate > 60, BUN/Creatinine Ratio 28, Glucose Level 154, Calcium Level 9.6, Total Bilirubin 0.8, Aspartate Amino Transf (AST/SGOT) 14, Alanine Aminotransferase (ALT/SGPT) 24, Alkaline Phosphatase 108, Total Protein 7.4, Albumin 3.9, Vancomycin Level Trough 7.6 Discharge Home Medications: Active Scripts Active Prednisone 10 Mg Tab.ds.pk 10 Mg PO DAILY Take 6 tabs(60mg)daily,decrease by 1 tab(10MG)daily. Hydrocodon-Acetaminoph 7.5-325 (Hydrocodone/Acetaminophen) 1 Each Tablet 1-2 Ea PO Q4H PRN Reported Viagra (Sildenafil Citrate) 50 Mg Tablet 100 Mg PO DAILY PRN TAKES 2 (50MG) TABLETS Gabapentin 300 Mg Capsule 300 Mg PO DAILY Celebrex (Celecoxib) 200 Mg Capsule 200 Mg PO DAILY Amlodipine Besylate 5 Mg Tablet 5 Mg PO DAILY Citalopram HBr (Citalopram Hydrobromide) 20 Mg Tablet 20 Mg PO DAILY Atorvastatin Calcium 10 Mg Tablet 10 Mg PO DAILY Cyclobenzaprine HCl 10 Mg Tablet 10 Mg PO TID PRN Acid Control (Famotidine) 20 Mg Tablet 20 Mg PO DAILY Instructions to patient/family Please see electonic discharge instructions given to patient. Clinical Quality Measures DVT/VTE Risk/Contraindication: Risk Factor Score Per Nursin RFS Level Per Nursing on Admit: 3=High DIPESH BROWN DO Jun 03, 2017 09:31
[2017-06-03] MEDS ORDERED: HYDR-3816 PO (09:33)
[2017-06-03] MEDS ORDERED: PRED10TA22 PO (09:35)
[2017-06-03] MEDS: DOCUSATE SODIUM 100 MG (COLACE) CAP PO SCH (10:02)
[2017-06-03 10:18] VITALS: BP 172/84
[2017-06-03] MEDS ORDERED: VANCOMYCIN 1250 MG/NS 250 ML IVPB IV SCH ×2 (17:00)
== END 2017-06-03 10:18 | disposition home or self-care (01) ==
LOC: EDUNIT# 14:12 → ER 14:14 → 4TH 16:11
PROVIDERS: ADMIT Internal Medicine; ATTEND Internal Medicine
DX: L02.412 Cutaneous abscess of left axilla (principal); R21 Rash and other nonspecific skin eruption; M48.02 Spinal stenosis, cervical region; G62.9 Polyneuropathy, unspecified; I10 Essential (primary) hypertension; Z79.899 Other long term (current) drug therapy; Z98.890 Other specified postprocedural states
CPT/HCPCS: 10060; 36415; 80053; 80202; 81000; 85007; 85025; 85027; 96360; G0378

== ENCOUNTER 2018-03-06 09:16 | Observation (INO) | payer SELFPAY ==
[~2018-03-06] VITALS: Ht 170.2 cm; Wt 89.8 kg
[~2018-03-06 09:16] MED LIST changes: -CITA20TA7 PO; +CITA20TA9 PO; +HYDR-34 PO; +PRED10TA22 PO
[2018-03-06] MEDS ORDERED: NS IV 1000 ML 1,000 ML IV ONE ×2 (10:19→12:52)
[2018-03-06] MEDS ORDERED: fentaNYL INJECTION 100 MCG/2 ML AMP IVP ONE ×2 (10:30→11:00)
[2018-03-06 10:45] LABS: BASOPHILS % (AUTO) 0 % (0-10); EOSINOPHILS # (AUTO) 0.1 10^3/uL (0.0-0.3); EOSINOPHILS % (AUTO) 1 % (0-10); HEMATOCRIT 35 % (40-54); LYMPHOCYTES % (AUTO) 7 % (12-44); MEAN CORPUSCULAR HEMOGLOBIN 31 PG (25-34); MEAN CORPUSCULAR HGB CONC 34 G/DL (32-36); MEAN CORPUSCULAR VOLUME 91 FL (80-99); MEAN PLATELET VOLUME 9.3 FL (7.4-10.4); MONOCYTES % (AUTO) 8 % (0-12); NEUTROPHILS # (AUTO) 11.3 X 10^3 (1.8-7.8); NEUTROPHILS % (AUTO) 84 % (42-75); PLATELET COUNT 223 10^3/uL (130-400); RED BLOOD COUNT 3.88 10^6/uL (4.35-5.85); RED CELL DISTRIBUTION WIDTH 13.6 % (10.0-14.5); WHITE BLOOD COUNT 13.4 10^3/uL (4.3-11.0)
[2018-03-06 10:57] LABS: PROTHROMBIN TIME PATIENT 13.6 SEC (12.2-14.7)
[2018-03-06] MEDS ORDERED: LORazepam INJ 2 MG/ML (ATIVAN) VIAL IVP ONE (11:00)
[2018-03-06 11:09] LABS: ALBUMIN 3.6 GM/DL (3.2-4.5); BILIRUBIN,TOTAL 1.1 MG/DL (0.1-1.0); CALCIUM 9.2 MG/DL (8.5-10.1); CREATININE SERUM 1.23 MG/DL (0.60-1.30); POTASSIUM 5.3 MMOL/L (3.6-5.0)
--- NOTE | 2018-03-06 11:21 | Diagnostic Imaging Report ---
PATIENT HISTORY: Fever, chills. TECHNIQUE: Single frontal view of the chest. COMPARISON: 05/28/2017. FINDINGS: The lung volumes are low. There is airspace opacity in the right lung base which appears new. No pleural effusion or pneumothorax is seen. The cardiac silhouette is upper normal in size. Degenerative changes are seen in the shoulders bilaterally. IMPRESSION: New airspace opacity in the right lung base which may represent infection versus atelectasis. Dictated by: Dictated on workstation # [id number]
[2018-03-06 11:22] LABS: BAND NEUTROPHILS 4 %; BASOPHILS % (MANUAL) 0 %; EOSINOPHILS % (MANUAL) 2 %; LYMPHOCYTES % (MANUAL) 7 %; MONOCYTES % (MANUAL) 6 %; NEUTROPHILS % (MANUAL) 81 %; RBC MORPH NORMAL
[2018-03-06 11:23] LABS: ERYTHROCYTE SEDIMENTATION RATE 37 MM/HR (0-30)
[2018-03-06] MEDS ORDERED: cefTRIAXone INJECTION 1,000 MG in NS (IVPB) 100 ML IV ONE (12:00)
[2018-03-06 12:31] LABS: CREATINE KINASE MB 33.6 NG/ML (<6.6)
--- NOTE | 2018-03-06 12:51 | ED General ---
General Chief Complaint: General Problems/Pain Stated Complaint: HURTS TO WALK Nursing Triage Note: TO ROOM PER W/C REPORTS HE HAS HAD LOW BACK, L HIP,AND LEG PAIN FOR A LONG TIME HAS BEEN SEEN BY [facility], AND ORTHO PA AT [facility] HAS BEEN REFERED TO DR YENY DEGROOT HAS NOT GOT APPOINTMENT YET Nursing Sepsis Screen: No Definite Risk Source of Information: Patient, Family Exam Limitations: No Limitations History of Present Illness Date Seen by Provider: Mar 06, 2018 Time Seen by Provider: 10:10 Initial Comments This 57 year old man presents to the ER with primary complaint of bilateral diffuse leg pain, particularly on the posterior aspect. He has been experiencing leg pain for at least 2 months but he had an acute exacerbation last night that made it difficult to sleep. He also reports a mild productive cough and some dyspnea especially with exertion recently. He feels very dry and states he has been urinating often. On exam he is noted to have an elevated temperature at 100.0. His skin feels warmer than that to touch. Patient was previously on statins but denies any current statin use. Patient has been diaphoretic at home and is diaphoretic on exam. Allergies and Home Medications Allergies Coded Allergies: codeine (Verified Allergy, Unknown, Pt has received Lortab & morphine in the past, 05/30/17) Home Medications Amlodipine Besylate 5 Mg Tablet, 5 MG PO DAILY, (Reported) Atorvastatin Calcium 10 Mg Tablet, 10 MG PO DAILY, (Reported) Celecoxib 200 Mg Capsule, 200 MG PO DAILY, (Reported) Citalopram Hydrobromide 20 Mg Tablet, 20 MG PO DAILY, (Reported) Cyclobenzaprine HCl 10 Mg Tablet, 10 MG PO TID PRN for MUSCLE SPASMS, (Reported) Famotidine 20 Mg Tablet, 20 MG PO DAILY, (Reported) Gabapentin 300 Mg Capsule, 300 MG PO DAILY, (Reported) Hydrocodone Bit/Acetaminophen 1 Each Tablet, 1-2 EA PO Q4H PRN for PAIN-MODERATE Prescribed by: DIPESH BROWN on 06/03/17 0958 Sildenafil Citrate 50 Mg Tablet, 100 MG PO DAILY PRN for ED, (Reported) TAKES 2 (50MG) TABLETS Patient Home Medication List Home Medication List Reviewed: Yes Review of Systems Constitutional: see HPI EENTM: no symptoms reported Respiratory: see HPI Cardiovascular: no symptoms reported Gastrointestinal: no symptoms reported Genitourinary: see HPI Musculoskeletal: see HPI Skin: see HPI Psychiatric/Neurological: No Symptoms Reported Hematologic/Lymphatic: No Symptoms Reported Immunological/Allergic: no symptoms reported Past Ljeqtar-Twjowb-Ihiszl Hx Patient Social History Alcohol Use: Occasionally Uses Number of Drinks Today: AA Alcohol Beverage of Choice: Beer Recreational Drug Use: No Smoking Status: Current Everyday Smoker Recent Foreign Travel: No Contact w/Someone Who Travel: No Recent Infectious Disease Expo: No Recent Hopitalizations: No Immunizations Up To Date Tetanus Booster (TDap): Unknown Date of Influenza Vaccine: Oct 21, 2014 Seasonal Allergies Seasonal Allergies: No Past Medical History Surgeries: Yes (R KNEE) Respiratory: No Cardiac: Yes High Cholesterol, Hypertension Neurological: Yes (cervical stenosis) Neuropathy Reproductive Disorders: No Sexually Transmitted Disease: No HIV/AIDS: No Genitourinary: No Gastrointestinal: Yes Gastroesophageal Reflux Musculoskeletal: Yes Arthritis Endocrine: No HEENT: No Cancer: No Psychosocial: No Integumentary: No Blood Disorders: No Adverse Reaction/Blood Tranf: No Family Medical History FH: congestive heart failure 19 MOTHER Myocardial infarction 19 FATHER Heart Disease, CAD Over 55 Years Old Physical Exam-Suspected Sepsis Physical Exam Vital Signs Vital Signs - First Documented 03/06/18 09:19 Temp 100.0 Pulse 116 Resp 18 B/P (MAP) 105/70 (82) O2 Delivery Room Air Capillary Refill : Less Than 3 Seconds Blood Pressure Mean: 82 General Appearance: WD/WN, Moderate Distress HEENT: PERRL/EOMI, Normal ENT Inspection, Other (mucous membranes are fairly dry) Neck: Normal Inspection, Supple Respiratory: Lungs Clear, Normal Breath Sounds, No Accessory Muscle Use, No Respiratory Distress, Other (coarse cough noted) Cardiovascular: No Edema, No Murmur, Tachycardia Gastrointestinal: Normal Bowel Sounds, Non Tender, Soft Extremity: Normal Capillary Refill, Normal Inspection, No Pedal Edema, Other ( mildly diffusely tender to palpation. 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 Norm as Tested Skin: normal color, diaphoresis Focused Exam Lactate Level 03/06/18 11:01: Lactic Acid Level 1.73 Lactic Acid Level Laboratory Tests Test 03/06/18 11:01 Lactic Acid Level 1.73 MMOL/L (0.50-2.00) Progress/Results/Core Measures Suspected Sepsis Recent Fever Within 48 Hours: No Infection Criteria Present: None New/Unexplained Altered Menta: No Sepsis Screen: No Definite Risk SIRS Temperature:100.0 Pulse: 116 Respiratory Rate: 18 Laboratory Tests 03/06/18 10:24: White Blood Count 13.4H Blood Pressure 105 /70 Mean: 82 03/06/18 11:01: Lactic Acid Level 1.73 Laboratory Tests 03/06/18 10:24: Creatinine 1.23, INR Comment 1.0, Platelet Count 223, Total Bilirubin 1.1H Results/Orders Lab Results Laboratory Tests Test 03/06/18 10:24 03/06/18 11:01 Range/Units White Blood Count 13.4 H 4.3-11.0 10^3/uL Red Blood Count 3.88 L 4.35-5.85 10^6/uL Hemoglobin 12.0 L 13.3-17.7 G/DL Hematocrit 35 L 40-54 % Mean Corpuscular Volume 91 80-99 FL Mean Corpuscular Hemoglobin 31 25-34 PG Mean Corpuscular Hemoglobin Concent 34 32-36 G/DL Red Cell Distribution Width 13.6 10.0-14.5 % Platelet Count 223 130-400 10^3/uL Mean Platelet Volume 9.3 7.4-10.4 FL Neutrophils (%) (Auto) 84 H 42-75 % Lymphocytes (%) (Auto) 7 L 12-44 % Monocytes (%) (Auto) 8 0-12 % Eosinophils (%) (Auto) 1 0-10 % Basophils (%) (Auto) 0 0-10 % Neutrophils # (Auto) 11.3 H 1.8-7.8 X 10^3 Lymphocytes # (Auto) 1.0 1.0-4.0 X 10^3 Monocytes # (Auto) 1.0 0.0-1.0 X 10^3 Eosinophils # (Auto) 0.1 0.0-0.3 10^3/uL Basophils # (Auto) 0.0 0.0-0.1 10^3/uL Neutrophils % (Manual) 81 % Lymphocytes % (Manual) 7 % Monocytes % (Manual) 6 % Eosinophils % (Manual) 2 % Basophils % (Manual) 0 % Band Neutrophils 4 % Blood Morphology Comment NORMAL Erythrocyte Sedimentation Rate 37 H 0-30 MM/HR Prothrombin Time 13.6 12.2-14.7 SEC INR Comment 1.0 0.8-1.4 Activated Partial Thromboplast Time 28 24-35 SEC Sodium Level 131 L 135-145 MMOL/L Potassium Level 5.3 H 3.6-5.0 MMOL/L Chloride Level 96 L 98-107 MMOL/L Carbon Dioxide Level 29 21-32 MMOL/L Anion Gap 6 5-14 MMOL/L Blood Urea Nitrogen 37 H 7-18 MG/DL Creatinine 1.23 0.60-1.30 MG/DL Estimat Glomerular Filtration Rate 60 BUN/Creatinine Ratio 30 Glucose Level 117 H 70-105 MG/DL Calcium Level 9.2 8.5-10.1 MG/DL Total Bilirubin 1.1 H 0.1-1.0 MG/DL Aspartate Amino Transf (AST/SGOT) 58 H 5-34 U/L Alanine Aminotransferase (ALT/SGPT) 33 0-55 U/L Alkaline Phosphatase 89 40-136 U/L Total Creatine Kinase 2440 H 30-200 U/L Creatine Kinase MB 33.6 *H <6.6 NG/ML Myoglobin 1397.0 H 10.0-92.0 NG/ML Troponin I < 0.30 <0.30 NG/ML C-Reactive Protein High Sensitivity 7.89 H 0.00-0.50 MG/DL Total Protein 7.0 6.4-8.2 GM/DL Albumin 3.6 3.2-4.5 GM/DL Lactic Acid Level 1.73 0.50-2.00 MMOL/L Micro Results Microbiology 03/06/18 Influenza Types A,B Antigen (TIA) - Final, Complete My Orders Orders - EDWIGE DANIEL MD Cbc With Automated Diff (03/06/18 10:19) Comprehensive Metabolic Panel (03/06/18 10:19) Lactic Acid Analyzer (03/06/18 10:19) Blood Culture (03/06/18 10:19) Sputum Culture (03/06/18 10:19) Ua Culture If Indicated (03/06/18 10:19) Protime With Inr (03/06/18 10:19) Partial Thromboplastin Time (03/06/18 10:19) Chest 1 View, Ap/Pa Only (03/06/18 10:19) O2 (03/06/18 10:19) Saline Lock/Iv-Start (03/06/18 10:19) Saline Lock/Iv-Start (03/06/18 10:19) Vital Signs Adult Sepsis Patie Q1H (03/06/18 10:19) Remove Rings In Anticipation O (03/06/18 10:19) Saline Lock/Iv-Start (03/06/18 10:19) Ns Iv 1000 Ml (Sodium Chloride 0.9%) (03/06/18 10:19) Hs C Reactive Protein (03/06/18 10:19) Influenza A And B Antigens (03/06/18 10:19) Erythrocyte Sedimentation Rate (03/06/18 10:19) Fentanyl Injection (Sublimaze Injection (03/06/18 10:30) Manual Differential (03/06/18 10:24) Lorazepam Injection (Ativan Injection) (03/06/18 11:00) Fentanyl Injection (Sublimaze Injection (03/06/18 11:00) Creatine Kinase Mb (03/06/18 10:57) Myoglobin Serum (03/06/18 10:57) Ceftriaxone Injection (Rocephin Injectio (03/06/18 12:00) Creatine Kinase (03/06/18 12:24) Troponin I (03/06/18 12:31) Ekg Tracing (03/06/18 12:31) Monitor-Rhythm Ecg Trace Only (03/06/18 12:31) Oseltamivir 75 Mg (10's) Caps (Tamiflu 7 (03/06/18 21:00) Acetaminophen Tablet (Tylenol Tablet) (03/06/18 13:00) Ns Iv 1000 Ml (Sodium Chloride 0.9%) (03/06/18 12:52) Medications Given in ED Current Medications Medications Dose Ordered Sig/Kacey Route Start Time Stop Time Status Last Admin Dose Admin Ceftriaxone Sodium 1000 mg/ Sodium Chloride 100 ml @ 200 mls/hr ONCE ONCE IV 03/06/18 12:00 03/06/18 12:29 DC 03/06/18 12:25 200 MLS/HR Fentanyl Citrate 50 mcg ONCE ONCE IVP 03/06/18 10:30 03/06/18 10:31 DC 03/06/18 10:43 50 MCG Fentanyl Citrate 50 mcg ONCE ONCE IVP 03/06/18 11:00 4/26/18 11:01 DC 03/06/18 11:07 50 MCG Lorazepam 0.5 mg ONCE ONCE IVP 03/06/18 11:00 03/06/18 11:01 DC 03/06/18 11:07 0.5 MG Sodium Chloride 1,000 ml @ 0 mls/hr Q0M ONCE IV 03/06/18 10:19 03/06/18 10:21 DC 03/06/18 10:43 1,000 MLS/HR Vital Signs/I&O 03/06/18 09:19 Temp 100.0 Pulse 116 Resp 18 B/P (MAP) 105/70 (82) O2 Delivery Room Air Capillary Refill : Less Than 3 Seconds Blood Pressure Mean: 82 Progress Note : Progress Note Sepsis workup was pursued due to the fever and tachycardia. Patient was found to be influenza B positive. Tamiflu was started in the emergency room. Rhabdomyolysis was suspected based on patient's description of lower extremity pain and tenderness. Myoglobin was significantly elevated. Troponin and EKG were performed due to the dyspnea on exertion. EKG was normal with sinus tachycardia and troponin was normal. Patient was initially treated with fentanyl for pain. As time passed he became significantly anxious and complained of persistent pain. Ativan 0.5 mg IV and an additional dose of fentanyl were administered. Patient did require a little supplemental oxygen after administration of these medications. Patient received a total of 2 L of IV fluids in the ER. Tylenol was also given. Chest x-ray was suspicious for a possible concurrent pneumonia in the right middle and/or lower lung. Patient was started on Rocephin in the ER as well. Patient did not produce any urine while in the emergency room. ECG Initial ECG Impression Date: Mar 06, 2018 Initial ECG Impression Time: 12:35 Initial ECG Rate: 115 Initial ECG Rhythm: S.Tach Initial ECG Intervals: Normal Initial ECG Impression: Normal Comment Sinus tachycardia with no ST elevation or depression. No abnormal intervals or axis deviation. Diagnostic Imaging Diagonstic Imaging: Xray Plain Films/CT/US/NM/MRI: chest Comments Chest x-ray viewed by me. Report reviewed. See report below: NAME: HUAN HILL [facility] REC#: [id number] PT STATUS: REG ER : 1960 PHYSICIAN: EDWIGE DANIEL MD ADMIT DATE: 03/06/18/ER Signed Date of Exam: 03/06/18 CHEST 1 VIEW, AP/PA ONLY PATIENT HISTORY: Fever, chills. TECHNIQUE: Single frontal view of the chest. COMPARISON: 05/28/2017. FINDINGS: The lung volumes are low. There is airspace opacity in the right lung base which appears new. No pleural effusion or pneumothorax is seen. The cardiac silhouette is upper normal in size. Degenerative changes are seen in the shoulders bilaterally. IMPRESSION: New airspace opacity in the right lung base which may represent infection versus atelectasis. Dictated by: Dictated on workstation # [id number] Dict: 03/06/18 1117 Trans: 03/06/18 1210 Interpreted by: ROSI SHAW MD Electronically signed by: ROSI SHAW MD 03/06/18 1210 Departure Communication (Admissions) Time/Spoke to Admitting Phy: 12:35 Dr. Escobar Impression Primary Impression: Influenza B Additional Impressions: Pneumonia Qualified Codes: J18.1 - Lobar pneumonia, unspecified organism Rhabdomyolysis Qualified Codes: M62.82 - Rhabdomyolysis Disposition: 09 ADMITTED INPATIENT Condition: Improved Admissions Decision to Admit Reason: Admit from ER (General) Decision to Admit/Date: Mar 06, 2018 Time/Decision to Admit Time: 11:55 Departure-Patient Inst. Referrals: [facility] (PCP/Family) Primary Care Physician EDWIGE DANIEL MD Mar 06, 2018 12:51
[2018-03-06] MEDS ORDERED: ACETAMINOPHEN 500 MG TAB (TYLENOL) PO ONE (13:00)
[2018-03-06 13:02] LABS: BILIRUBIN,URINE NEGATIVE (NEGATIVE); CLARITY,URINE CLEAR; COLOR,URINE YELLOW; GLUCOSE, URINE (UA) NEGATIVE (NEGATIVE); KETONES,URINE NEGATIVE (NEGATIVE); LEUKOCYTE ESTERASE ,URINE 1+ (NEGATIVE); NITRITE,URINE NEGATIVE (NEGATIVE); PH,URINE 6.5 (5-9); PROTEIN,URINE 1+ (NEGATIVE); UROBILINOGEN,URINE 1 MG/DL (NORMAL)
[2018-03-06] MEDS: OSELTAMIVIR 75 MG (TAMIFLU) BOX OF 10 PO SCH (13:05)
[2018-03-06 13:09] LABS: BACTERIA,URINE NEGATIVE /HPF; RBC,URINE RARE /HPF; SQUAMOUS EPITHELIAL CELL,UR RARE /HPF; WBC,URINE 0-2 /HPF
[2018-03-06] MEDS: NS IV 1000 ML 1,000 ML IV SCH ×3 (14:14→22:13)
[2018-03-06] MEDS ORDERED: AZITHROMYCIN 500 MG/NS 250 ML IVPB IV NR ×2 (14:15)
[2018-03-06] MEDS ORDERED: ONDANSETRON 4 MG/2 ML (SDV) Z0FRAN IV PRN (14:15)
[2018-03-06] MEDS ORDERED: RT-ALBUTEROL/IPRATROPIUM 3 ML (DUONEB) VIAL INH PRN (14:30)
[2018-03-06] MEDS ORDERED: GABA800T2 PO (14:38)
[2018-03-06] MEDS ORDERED: KETO10TA PO (14:38)
[2018-03-06] MEDS ORDERED: INDO25CA PO (14:38)
[2018-03-06] MEDS ORDERED: SILD100T67 PO (14:38)
[2018-03-06] MEDS ORDERED: TRAZ150T72 PO (14:47)
[2018-03-06] MEDS ORDERED: LISI10TA2 PO (15:49)
[2018-03-06] MEDS: fentaNYL INJECTION 100 MCG/2 ML AMP IV PRN ×2 (15:49→20:03)
[2018-03-06 15:50] VITALS: BP 118/56
[2018-03-06 16:11] LABS: BILIRUBIN,URINE NEGATIVE (NEGATIVE); CLARITY,URINE SLIGHTLY CLOUDY; COLOR,URINE YELLOW; GLUCOSE, URINE (UA) NEGATIVE (NEGATIVE); KETONES,URINE NEGATIVE (NEGATIVE); LEUKOCYTE ESTERASE ,URINE NEGATIVE (NEGATIVE); NITRITE,URINE NEGATIVE (NEGATIVE); PH,URINE 6.5 (5-9); PROTEIN,URINE NEGATIVE (NEGATIVE); UROBILINOGEN,URINE 1 MG/DL (NORMAL)
[2018-03-06 16:36] LABS: RBC,URINE RARE /HPF
[2018-03-06 16:37] LABS: BACTERIA,URINE NEGATIVE /HPF; WBC,URINE RARE /HPF
--- NOTE | 2018-03-06 16:42 | History & Physicial (CHS) ---
HPI History of Present Illness: This is a 57 yo male who presented to the ER w/ c/o of bilateral leg pain which started the night prior to coming to the ER and worsened overnight. No known injury. States pain is worse in the back of the thighs and calves bilaterally. Denies significant upper extremity pain. Reported a low grade fever, cough and SOA. Pt tested positive for Flu B in the ER and a perihilar infiltrate was noted on the CXR. Myoglobin was noted to be elevated at approx 1400 and CK was 2440. Per ER physician pt had been on a statin medication. At the time of my exam pt was unsure about what medication he was on and unsure if he took any cholesterol medication or when he last took his medication. Pt is a poor historian and further history difficult to obtain. Exam Limitations: other (poor historian) Date seen by provider: Mar 06, 2018 Time Seen by Provider: 16:42 Attending Physician Art Quintero DO [facility] [place] Consult Date of Admission Mar 06, 2018 at 12:41 Home Medications Home Medications Reviewed patient Home Medication Reconciliation performed by pharmacy medication reconciliations roofing technician and/or nursing. Patients Allergies have been reviewed. Allergies Coded Allergies: codeine (Verified Allergy, Unknown, Pt has received Lortab & morphine in the past, 05/30/17) BWQ-Xnhdlh-Awyvxe Hx Patient Social History Alcohol Use: Occasionally Uses Recreational Drug Use: No Smoking Status: Current Everyday Smoker Recent Foreign Travel: No Contact w/other who traveled: No Recent Hopitalizations: No Recent Infectious Disease Expo: No Immunizations Up To Date Tetanus Booster (TDap): Unknown Date of Influenza Vaccine: Oct 21, 2014 Past Medical History HTN Obesity cervical stenosis neuropathy GERD Osteoarthritis PSH: R knee Family Medical History Significant Family History: Heart Disease, CAD Over 55 Years Old Family History: FH: congestive heart failure 19 MOTHER Myocardial infarction 19 FATHER Review of Systems (CHC) Constitutional: see HPI, chills, fever Respiratory: cough Cardiovascular: no symptoms reported; No chest pain Gastrointestinal: no symptoms reported Musculoskeletal: see HPI Reviewed Test Results Reviewed Test Results Lab Laboratory Tests 03/06/18 10:24: White Blood Count 13.4H, Red Blood Count 3.88L, Hemoglobin 12.0L, Hematocrit 35L , Mean Corpuscular Volume 91, Mean Corpuscular Hemoglobin 31, Mean Corpuscular Hemoglobin Concent 34, Red Cell Distribution Width 13.6, Platelet Count 223, Mean Platelet Volume 9.3, Neutrophils (%) (Auto) 84H, Lymphocytes (%) (Auto) 7L , Monocytes (%) (Auto) 8, Eosinophils (%) (Auto) 1, Basophils (%) (Auto) 0, Neutrophils # (Auto) 11.3H, Lymphocytes # (Auto) 1.0, Monocytes # (Auto) 1.0, Eosinophils # (Auto) 0.1, Basophils # (Auto) 0.0, Neutrophils % (Manual) 81, Lymphocytes % (Manual) 7, Monocytes % (Manual) 6, Eosinophils % (Manual) 2, Basophils % (Manual) 0, Band Neutrophils 4, Blood Morphology Comment NORMAL, Erythrocyte Sedimentation Rate 37H, Prothrombin Time 13.6, INR Comment 1.0, Activated Partial Thromboplast Time 28, Sodium Level 131L, Potassium Level 5.3H , Chloride Level 96L, Carbon Dioxide Level 29, Anion Gap 6, Blood Urea Nitrogen 37H, Creatinine 1.23, Estimat Glomerular Filtration Rate 60, BUN/Creatinine Ratio 30, Glucose Level 117H, Calcium Level 9.2, Total Bilirubin 1.1H, Aspartate Amino Transf (AST/SGOT) 58H, Alanine Aminotransferase (ALT/SGPT) 33, Alkaline Phosphatase 89, Total Creatine Kinase 2440H, Creatine Kinase MB 33.6*H , Myoglobin 1397.0H, Troponin I < 0.30, C-Reactive Protein High Sensitivity 7.89H, Total Protein 7.0, Albumin 3.6 03/06/18 11:01: Lactic Acid Level 1.73 03/06/18 12:55: Urine Color YELLOW, Urine Clarity CLEAR, Urine pH 6.5, Urine Specific Redmon 1.015L, Urine Protein 1+H, Urine Glucose (UA) NEGATIVE, Urine Ketones NEGATIVE, Urine Nitrite NEGATIVE, Urine Bilirubin NEGATIVE, Urine Urobilinogen 1, Urine Leukocyte Esterase 1+H, Urine RBC (Auto) NEGATIVE, Urine RBC RARE, Urine WBC 0-2 , Urine Squamous Epithelial Cells RARE, Urine Crystals NONE, Urine Bacteria NEGATIVE, Urine Casts NONE, Urine Mucus NEGATIVE, Urine Culture Indicated NO 03/06/18 14:57: Urine Color YELLOW, Urine Clarity SLIGHTLY CLOUDY, Urine pH 6.5, Urine Specific Redmon 1.010L, Urine Protein NEGATIVE, Urine Glucose (UA) NEGATIVE, Urine Ketones NEGATIVE, Urine Nitrite NEGATIVE, Urine Bilirubin NEGATIVE, Urine Urobilinogen 1, Urine Leukocyte Esterase NEGATIVE, Urine RBC (Auto) NEGATIVE, Urine RBC RARE, Urine WBC RARE, Urine Crystals NONE, Urine Bacteria NEGATIVE, Urine Casts NONE, Urine Mucus NEGATIVE, Urine Culture Indicated NO 03/07/18 05:37: White Blood Count 5.1, Red Blood Count 3.78L, Hemoglobin 11.5L, Hematocrit 35L, Mean Corpuscular Volume 92, Mean Corpuscular Hemoglobin 30, Mean Corpuscular Hemoglobin Concent 33, Red Cell Distribution Width 13.6, Platelet Count 166, Mean Platelet Volume 9.6, Neutrophils (%) (Auto) 65, Lymphocytes (%) (Auto) 19, Monocytes (%) (Auto) 9, Eosinophils (%) (Auto) 7, Basophils (%) (Auto) 0, Neutrophils # (Auto) 3.3, Lymphocytes # (Auto) 0.9L, Monocytes # (Auto) 0.5, Eosinophils # (Auto) 0.3, Basophils # (Auto) 0.0, Sodium Level 139, Potassium Level 5.0, Chloride Level 110#H, Carbon Dioxide Level 21, Anion Gap 8, Blood Urea Nitrogen 16, Creatinine 0.66, Estimat Glomerular Filtration Rate > 60, BUN/ Creatinine Ratio 24, Glucose Level 116H, Calcium Level 8.6, Total Bilirubin 0.5 , Aspartate Amino Transf (AST/SGOT) 45H, Alanine Aminotransferase (ALT/SGPT) 28 , Alkaline Phosphatase 81, Total Creatine Kinase 713H, Total Protein 6.1L, Albumin 3.1L Microbiology 03/06/18 Influenza Types A,B Antigen (TIA) - Final, Complete Radiology Date of Exam: 03/06/18 CHEST 1 VIEW, AP/PA ONLY PATIENT HISTORY: Fever, chills. TECHNIQUE: Single frontal view of the chest. COMPARISON: 05/28/2017. FINDINGS: The lung volumes are low. There is airspace opacity in the right lung base which appears new. No pleural effusion or pneumothorax is seen. The cardiac silhouette is upper normal in size. Degenerative changes are seen in the shoulders bilaterally. IMPRESSION: New airspace opacity in the right lung base which may represent infection versus atelectasis. Physical Exam-(CHC) Physical Exam Vital Signs VS - Last 72 Hours, by Label 03/06/18 03/06/18 03/06/18 03/06/18 09:19 11:15 13:04 13:29 Temp 100.0 100.0 Pulse 116 111 Resp 18 18 B/P (MAP) 105/70 (82) 125/80 Pulse Ox 93 O2 Delivery Room Air Nasal Cannula Nasal Cannula O2 Flow Rate 3.00 3.00 FiO2 89 03/06/18 03/06/18 03/06/18 03/06/18 14:23 15:50 17:49 18:52 Temp 99.2 Pulse 104 Resp 20 B/P (MAP) 118/56 (76) Pulse Ox 93 94 88 O2 Delivery Room Air Room Air Room Air FiO2 32 03/06/18 03/06/18 03/06/18 03/06/18 19:00 20:01 20:34 23:43 Temp 99.1 Pulse 100 100 Resp 20 B/P (MAP) 145/78 (100) Pulse Ox 93 93 92 O2 Delivery Room Air Room Air Room Air 03/07/18 03/07/18 03/07/18 03/07/18 00:00 01:00 02:15 03:36 Temp 97.5 97.0 Pulse 91 87 90 Resp 19 19 B/P (MAP) 138/75 (96) 129/74 (92) Pulse Ox 92 92 96 O2 Delivery Room Air Room Air Room Air 03/07/18 03/07/18 03/07/18 03/07/18 07:00 08:00 08:21 10:11 Temp 96.3 Pulse 78 82 Resp 22 B/P (MAP) 164/95 (118) Pulse Ox 93 91 90 O2 Delivery Room Air Room Air Room Air 03/07/18 10:20 Pulse Ox 93 O2 Flow Rate 1.00 Capillary Refill : Less Than 3 Seconds General Appearance: WD/WN, no apparent distress HEENT: PERRL/EOMI Respiratory: lungs clear; No wheezing Cardiovascular: regular rate, rhythm, no edema Gastrointestinal: non tender, soft Extremities: calf tenderness, other (posterior thight ttp bilaterally) Neurologic/Psychiatric: other (groggy) Skin: normal color, warm/dry Assessment/Plan Assessment/Plan Admission Dx 1. Influenza B 2. Pneumonia 3. Rhabdomyolysis 4. mild ORBEL likely secondary to #3 Admission Status: Observation Assessment & Plan 1. Influenza B - started Tamiflu 2. Pneumonia - possible infiltrate R lung based - started Rocephin, Zithromax - wbc 13.4 w/ left shift; CRP 8, lactic acid 1.73 3. Rhabdomyolysis - myoglobin approx 1400; CK 2440 - no evidence of statin therapy on med rec/ext med hx - unsure of etiology - tx w/ IVF 4. mild ROBEL likely secondary to #3 - IVF Clinical Quality Measures DVT/VTE Risk/Contraindication: Risk Score Comment: Lovenox started ART QUINTERO DO Mar 06, 2018 16:42
[2018-03-06] MEDS: ENOXAPARIN 40 MG/0.4 ML (LOVENOX) SYR SQ SCH (17:25)
[2018-03-06] MEDS: ACETAMINOPHEN 500 MG TAB (TYLENOL) PO PRN (17:26)
[2018-03-06] MEDS: RT-ALBUTEROL/IPRATROPIUM 3 ML (DUONEB) VIAL INH SCH ×2 (18:52→23:43)
[2018-03-06 20:01] VITALS: BP 145/78
[2018-03-06] MEDS: traZODone 150 MG (DESYREL) TABLET PO PRN (22:12)
[2018-03-07] VITALS: BP 138/75
[2018-03-07] MEDS: RT-ALBUTEROL/IPRATROPIUM 3 ML (DUONEB) VIAL INH SCH ×6 (02:15→23:25)
[2018-03-07] MEDS: ACETAMINOPHEN 500 MG TAB (TYLENOL) PO PRN ×2 (02:38→13:36)
[2018-03-07] MEDS: fentaNYL INJECTION 100 MCG/2 ML AMP IV PRN (02:38)
[2018-03-07 03:36] VITALS: BP 129/74
[2018-03-07] MEDS: NS IV 1000 ML 1,000 ML IV SCH ×3 (04:54→19:37)
[2018-03-07 06:13] LABS: BASOPHILS % (AUTO) 0 % (0-10); EOSINOPHILS # (AUTO) 0.3 10^3/uL (0.0-0.3); EOSINOPHILS % (AUTO) 7 % (0-10); HEMATOCRIT 35 % (40-54); HEMOGLOBIN 11.5 G/DL (13.3-17.7); LYMPHOCYTES # (AUTO) 0.9 X 10^3 (1.0-4.0); LYMPHOCYTES % (AUTO) 19 % (12-44); MEAN CORPUSCULAR HEMOGLOBIN 30 PG (25-34); MEAN CORPUSCULAR HGB CONC 33 G/DL (32-36); MEAN CORPUSCULAR VOLUME 92 FL (80-99); MEAN PLATELET VOLUME 9.6 FL (7.4-10.4); MONOCYTES # (AUTO) 0.5 X 10^3 (0.0-1.0); MONOCYTES % (AUTO) 9 % (0-12); NEUTROPHILS # (AUTO) 3.3 X 10^3 (1.8-7.8); NEUTROPHILS % (AUTO) 65 % (42-75); PLATELET COUNT 166 10^3/uL (130-400); RED BLOOD COUNT 3.78 10^6/uL (4.35-5.85); RED CELL DISTRIBUTION WIDTH 13.6 % (10.0-14.5); WHITE BLOOD COUNT 5.1 10^3/uL (4.3-11.0)
[2018-03-07 06:36] LABS: ALANINE AMINOTRANSFERASE 28 U/L (0-55); ALBUMIN 3.1 GM/DL (3.2-4.5); ALKALINE PHOSPHATASE 81 U/L (40-136); BILIRUBIN,TOTAL 0.5 MG/DL (0.1-1.0); BUN/CREATININE RATIO 24; CALCIUM 8.6 MG/DL (8.5-10.1); CARBON DIOXIDE 21 MMOL/L (21-32); CHLORIDE 110 MMOL/L (98-107); CREATINE KINASE 713 U/L (30-200); CREATININE SERUM 0.66 MG/DL (0.60-1.30); GFR ESTIMATED > 60; GLUCOSE 116 MG/DL (70-105); SODIUM 139 MMOL/L (135-145); TOTAL PROTEIN 6.1 GM/DL (6.4-8.2)
[2018-03-07 08:00] VITALS: BP 164/95
--- NOTE | 2018-03-07 08:16 | Diagnostic Imaging Report ---
INDICATION: Followup pneumonia. TIME OF EXAM: 8:09 AM Correlation is made with prior study from one day earlier. FINDINGS: The heart size is stable. Right hemidiaphragm remains mildly elevated. There has been some improved aeration to the right base since yesterday. Lungs appear to be fairly clear. No effusion is identified. No pneumothorax is identified. IMPRESSION: Improved aeration to the right base when compared to examination one day earlier. Dictated by: Dictated on workstation # [id number]
[2018-03-07] MEDS: AZITHROMYCIN 250 MG TAB (ZITHROMAX) PO SCH (08:43)
[2018-03-07] MEDS: cefTRIAXone 1 GM/NS 100 ML IV SCH ×2 (08:43)
[2018-03-07] MEDS: GABAPENTIN 400 MG (NEURONTIN) CAP PO SCH ×3 (08:43→20:26)
[2018-03-07] MEDS: OSELTAMIVIR 75 MG (TAMIFLU) BOX OF 10 PO SCH ×2 (08:44→20:26)
[2018-03-07] MEDS ORDERED: NON-FORMULARY MEDICATION 1 EA EA (Gabapentin 800 MG) PO SCH (09:00)
[2018-03-07] MEDS: amLODIPine 5 MG (NORVASC) TAB PO SCH (09:46)
[2018-03-07 12:00] VITALS: BP 158/94
--- NOTE | 2018-03-07 12:30 | Progress Note (SOAP) ---
Subjective Subjective/Events-last exam Pt continues to be fairly groggy. Continues to complaint of leg pain - reports no significant improvement. Pain worse in the back of the legs, no upper extremity pain. Review of Systems Date Seen by Provider: Mar 07, 2018 Time Seen by Provider: 11:00 Focused Exam Lactate Level 03/06/18 11:01: Lactic Acid Level 1.73 Objective Exam Last Set of Vital Signs Vital Signs Date Time Temp Pulse Resp B/P (MAP) Pulse Ox O2 Delivery O2 Flow Rate FiO2 03/07/18 10:20 93 1.00 03/07/18 10:11 Room Air 03/07/18 08:00 96.3 82 22 164/95 (118) 03/06/18 14:23 32 Capillary Refill : Less Than 3 Seconds I&O Intake and Output 03/07/18 00:00 Intake Total 3730 ml Output Total 1375 ml Balance 2355 ml Intake Oral 380 ml IV Total 3350 ml Output Urine Total 1375 ml Daily Weight Change No General: Alert, Oriented X3, Cooperative Lungs: Clear to Auscultation Heart: Regular Rate Extremities: Other (LE muscle tenderness on palpation) Results/Procedures Lab Laboratory Tests 03/06/18 12:55: Urine Color YELLOW, Urine Clarity CLEAR, Urine pH 6.5, Urine Specific [place] 1.015L, Urine Protein 1+H, Urine Glucose (UA) NEGATIVE, Urine Ketones NEGATIVE, Urine Nitrite NEGATIVE, Urine Bilirubin NEGATIVE, Urine Urobilinogen 1, Urine Leukocyte Esterase 1+H, Urine RBC (Auto) NEGATIVE, Urine RBC RARE, Urine WBC 0-2 , Urine Squamous Epithelial Cells RARE, Urine Crystals NONE, Urine Bacteria NEGATIVE, Urine Casts NONE, Urine Mucus NEGATIVE, Urine Culture Indicated NO 03/06/18 14:57: Urine Color YELLOW, Urine Clarity SLIGHTLY CLOUDY, Urine pH 6.5, Urine Specific [place] 1.010L, Urine Protein NEGATIVE, Urine Glucose (UA) NEGATIVE, Urine Ketones NEGATIVE, Urine Nitrite NEGATIVE, Urine Bilirubin NEGATIVE, Urine Urobilinogen 1, Urine Leukocyte Esterase NEGATIVE, Urine RBC (Auto) NEGATIVE, Urine RBC RARE, Urine WBC RARE, Urine Crystals NONE, Urine Bacteria NEGATIVE, Urine Casts NONE, Urine Mucus NEGATIVE, Urine Culture Indicated NO 03/07/18 05:37: White Blood Count 5.1, Red Blood Count 3.78L, Hemoglobin 11.5L, Hematocrit 35L, Mean Corpuscular Volume 92, Mean Corpuscular Hemoglobin 30, Mean Corpuscular Hemoglobin Concent 33, Red Cell Distribution Width 13.6, Platelet Count 166, Mean Platelet Volume 9.6, Neutrophils (%) (Auto) 65, Lymphocytes (%) (Auto) 19, Monocytes (%) (Auto) 9, Eosinophils (%) (Auto) 7, Basophils (%) (Auto) 0, Neutrophils # (Auto) 3.3, Lymphocytes # (Auto) 0.9L, Monocytes # (Auto) 0.5, Eosinophils # (Auto) 0.3, Basophils # (Auto) 0.0, Sodium Level 139, Potassium Level 5.0, Chloride Level 110#H, Carbon Dioxide Level 21, Anion Gap 8, Blood Urea Nitrogen 16, Creatinine 0.66, Estimat Glomerular Filtration Rate > 60, BUN/ Creatinine Ratio 24, Glucose Level 116H, Calcium Level 8.6, Total Bilirubin 0.5 , Aspartate Amino Transf (AST/SGOT) 45H, Alanine Aminotransferase (ALT/SGPT) 28 , Alkaline Phosphatase 81, Total Creatine Kinase 713H, Total Protein 6.1L, Albumin 3.1L Microbiology 03/06/18 Influenza Types A,B Antigen (TIA) - Final, Complete Radiology Date of Exam: 03/06/18 CHEST 1 VIEW, AP/PA ONLY PATIENT HISTORY: Fever, chills. TECHNIQUE: Single frontal view of the chest. COMPARISON: 05/28/2017. FINDINGS: The lung volumes are low. There is airspace opacity in the right lung base which appears new. No pleural effusion or pneumothorax is seen. The cardiac silhouette is upper normal in size. Degenerative changes are seen in the shoulders bilaterally. IMPRESSION: New airspace opacity in the right lung base which may represent infection versus atelectasis. Assessment/Plan Assessment/Plan Assessment & Plan 1. Influenza B - started Tamiflu on admission 2. Pneumonia - RULED OUT - possible infiltrate R lung based - started Rocephin, Zithromax - wbc 13.4 w/ left shift; CRP 8, lactic acid 1.73 03/07 - repeat CXR showed better aeration, no evidence of pneumonia - DC antibiotics 3. Rhabdomyolysis - myoglobin approx 1400; CK 2440 - no evidence of statin therapy on med rec/ext med hx - unsure of etiology - tx w/ IVF 03/07 - CK improved to 713, continued LE pain 4. mild ROBEL likely secondary to #3 - IVF 03/07 - Cr 0.66 RESOLVED 5. Bilateral lower extremilty muscle pain 03/07 - obtain emigdio venous doppler for further evaluation - DC Fentanyl and order PT Clinical Quality Measures DVT/VTE Risk/Contraindication: Risk Factor Score Per Nursin RFS Level Per Nursing on Admit: 4+=Very High Risk Score Comment: Lovenox started ART QUINTERO DO Mar 07, 2018 12:30
--- NOTE | 2018-03-07 13:41 | Diagnostic Imaging Report ---
INDICATION: Bilateral leg pain. TECHNIQUE: Grayscale, color-flow and duplex Doppler evaluation of the bilateral lower extremity deep venous systems was performed. FINDINGS: There is no evidence of a right or left lower extremity DVT. Both lower extremity deep venous systems demonstrate normal compressibility with normal response to augmentation and Valsalva. No fluid collection is identified. IMPRESSION: No evidence of right or left lower extremity DVT. Dictated by: Dictated on workstation # [id number]
--- NOTE | 2018-03-07 15:10 | Physical Therapy Evaluation ---
PT Evaluation-General Medical Diagnosis Admission Date Mar 06, 2018 at 12:41 Medical Diagnosis: influenza B Onset Date: Mar 06, 2018 Therapy Diagnosis Therapy Diagnosis: impaired mobility, strength, endurance Height/Weight Height (Feet): 5 Height (Inches): 7.00 Weight (Pounds): 198 Weight (Ounces): 0.0 Precautions Precautions/Isolations: Droplet Isolation, Fall Prevention, Pressure Ulcer Weight Bear Status Right Lower Extremity: Right Weight Bearing/Tolerated Left Lower Extremity: Left Weight Bearing/Tolerated Referral Physician: May Escobar DO Reason for Referral: Evaluation/Treatment Medical History Pertinent Medical History: GERD, HTN, Neuropathy, OA, Smoking Additional Medical History obesity, cervical stenosis, surg (right knee) Reviewed History: Yes Social History Home: Single Level Current Living Status: Alone Entry Into Home: Stairs Without Railing Patient states he has many steps to enter his home and is unsure of how many. Prior/Core FIM Prior Level of Function Functional [place] Measure 0=Not Assessed/NA 4=Minimal Assistance 1=Total Assistance 5=Supervision or Setup 2=Maximal Assistance 6=Modified [place] 3=Moderate Assistance 7=Complete [place] Bed Mobility: 7 Transfers (B,C,W/C) (FIM): 7 Gait: 7 PT Evaluation-Current Subjective Patient in bed pre tx, agrees to PT, has no pain at rest but he says intense pain in the back of his legs with movement.Patient states he had just started to work out and he is getting a left CULLEN soon. Pt/Family Goals to decrease his pain Objective Patient Orientation: Person, Place, Situation Attachments: Oxygen ROM/Strength ROM Lower Extremities WNL Strength Lower Extremities 3+/5 gross bilateral lower extremities, strength impaired by pain Neuromuscular (Tone, Coordination, Reflexes) NT Sensory Vision: Functional Hearing: Functional Sensation Right Lower Extremit: Intact Sensation Left Lower Extremity: Intact Transfers Functional [place] Measure 0=Not Assessed/NA 4=Minimal Assistance 1=Total Assistance 5=Supervision or Setup 2=Maximal Assistance 6=Modified [place] 3=Moderate Assistance 7=Complete [place] Transfers (B, C, W/C) (FIM): 3 Scootin Rollin Supine to/from Sit: 3 Sit to/from Stand: 4 Patient needed mod assist for supine <-> sit, cues for hand placement and safety. Gait Comments/Gait Description Patient was able to stand at the side of his bed for about 3 min but was not able to start walking due to pain. Balance Sitting Static: Good Sitting Dynamic: Good Standing Static: Fair Standing Dynamic: Fair Treatment seated exercises x10 (AP, LAQ, hip flexion) Assessment/Needs Patient has impaired mobility, strength, endurance. Pain is a limiting factor in his functional mobility. Rehab Potential: Fair PT Short Term Goals Short Term Goals Time Frame: March 14, 2018 Transfers (B,C,W/C) (FIM): 4 Gait (FIM): 2 Gait Distance Comment: 50' Gait Level of Assist: 4 Gait Assistive Device: FWW PT Plan Problem List Problem List: Activity Tolerance, Functional Strength, Safety, Balance, Gait, Transfer, Bed Mobility, ROM Treatment/Plan Treatment Plan: Continue Plan of Care Treatment Plan: Bed Mobility, Education, Functional Activity Isidoro, Functional Strength, Gait, Safety, Therapeutic Exercise, Transfers Treatment Duration: March 14, 2018 Frequency: 6 times per week Estimated Hrs Per Day: .25 hour per day (15-30') Patient and/or Family Agrees t: Yes Safety Risks/Education Patient Education: Transfer Techniques, Correct Positioning, Safety Issues Teaching Recipient: Patient Teaching Methods: Demonstration, Discussion Response to Teaching: Reinforcement Needed Discharge Recommendations Plan Patient will perform bed mobility and transfer training, balance and endurance training, functional strengthening, stair training, gait training, and education , to improve functional mobility and independence at home. Therapy D/C Recommendations: Home w/ Family Support Time/GCodes Time In: 1440 Time Out: 1500 Total Billed Treatment Time: 20 Total Billed Treatment 1 visit EVL 20' G Codes Necessary: Yes PT/OT Therapy GCodes Therapy Functional Limitation: Physical Therapy Test(s)/Tool used to determine: Level of Assistance Scale Functional Limitation-Current Charge Code: MOBCUR Modifier: KEELEY Functional Limitation-Goal Charge Code: MOBGOAL Modifier: WYATT GRIFFIN PT Mar 07, 2018 15:10
[2018-03-07 15:15] VITALS: BP 139/81
[2018-03-07] MEDS: ENOXAPARIN 40 MG/0.4 ML (LOVENOX) SYR SQ SCH (16:21)
[2018-03-07] MEDS: rOPINIRole 0.25 MG (REQUIP) TAB PO SCH (16:21)
[2018-03-07 20:05] VITALS: BP 133/76
[2018-03-07] MEDS: traZODone 150 MG (DESYREL) TABLET PO PRN (20:26)
[2018-03-08] VITALS: BP 135/92
[2018-03-08] MEDS: NS IV 1000 ML 1,000 ML IV SCH ×3 (01:45→14:55)
[2018-03-08] MEDS: ACETAMINOPHEN 500 MG TAB (TYLENOL) PO PRN (01:51)
[2018-03-08] MEDS: RT-ALBUTEROL/IPRATROPIUM 3 ML (DUONEB) VIAL INH SCH ×4 (03:30→14:38)
[2018-03-08 03:41] VITALS: BP 133/89
[2018-03-08 05:38] LABS: HEMOGLOBIN 11.9 G/DL (13.3-17.7); MEAN PLATELET VOLUME 9.5 FL (7.4-10.4); RED BLOOD COUNT 3.88 10^6/uL (4.35-5.85); RED CELL DISTRIBUTION WIDTH 13.7 % (10.0-14.5); WHITE BLOOD COUNT 7.8 10^3/uL (4.3-11.0)
[2018-03-08 06:06] LABS: ALANINE AMINOTRANSFERASE 29 U/L (0-55); ALBUMIN 3.5 GM/DL (3.2-4.5); ALKALINE PHOSPHATASE 88 U/L (40-136); BILIRUBIN,TOTAL 0.3 MG/DL (0.1-1.0); BUN/CREATININE RATIO 13; CALCIUM 9.3 MG/DL (8.5-10.1); CARBON DIOXIDE 24 MMOL/L (21-32); CHLORIDE 107 MMOL/L (98-107); CREATINE KINASE 305 U/L (30-200); CREATININE SERUM 0.64 MG/DL (0.60-1.30); GFR ESTIMATED > 60; GLUCOSE 112 MG/DL (70-105); POTASSIUM 4.4 MMOL/L (3.6-5.0); SODIUM 141 MMOL/L (135-145); TOTAL PROTEIN 7.1 GM/DL (6.4-8.2)
[2018-03-08 08:00] VITALS: BP 138/84
[2018-03-08] MEDS: cefTRIAXone 1 GM/NS 100 ML IV SCH ×2 (08:52)
[2018-03-08] MEDS: OSELTAMIVIR 75 MG (TAMIFLU) BOX OF 10 PO SCH (08:52)
[2018-03-08] MEDS: amLODIPine 5 MG (NORVASC) TAB PO SCH (08:52)
[2018-03-08] MEDS: GABAPENTIN 400 MG (NEURONTIN) CAP PO SCH ×2 (08:52→12:05)
[2018-03-08] MEDS: AZITHROMYCIN 250 MG TAB (ZITHROMAX) PO SCH (08:52)
[2018-03-08] MEDS: rOPINIRole 0.25 MG (REQUIP) TAB PO SCH (08:52)
[2018-03-08] MEDS ORDERED: NON-FORMULARY MEDICATION 1 EA EA (Citalopram Hydrobromide (Citalopram HBr) 20 MG) PO SCH (09:00)
[2018-03-08] MEDS ORDERED: NON-FORMULARY MEDICATION 1 EA EA (Amlodipine Besylate 5 MG) PO SCH (09:00)
--- NOTE | 2018-03-08 11:34 | Physical Therapy Daily Note ---
PT Daily Note-Current Subjective Pt. in bed and agrees to therapy. Says he is feeling better. Pt. reports he doesn't want to walk much because of his "bad" hip, planning to have THR. Mental Status Patient Orientation: Person, Place, Time, Situation Attachments: IV Transfers Functional [place] Measure 0=Not Assessed/NA 4=Minimal Assistance 1=Total Assistance 5=Supervision or Setup 2=Maximal Assistance 6=Modified [place] 3=Moderate Assistance 7=Complete IndependenceIRFPAI Quality Coding Scale 6 Independent with activity with or without an assistive device 5 Patient requires set up or clean up by helper. Patient completes activity by themselves 4 Supervision or touching assist (CGA). [place] provide cues , steadying assist 3 The helper provides less than half the effort to complete the activity 2 The helper provides more than half the effort to complete the activity 1 Dependent. The helper does all the effort to complete an activity 7 Patient refused to complete or attempt activity 9 The patient did not perform the activity before the current illness or injury 88 Not attempted due to Medical conditions or safety concerns Transfers (B, C, W/C) (FIM): 5 Supine to/from Sit: 5 Sit to/from Stand: 5 Bed to/from Chair: 5 Weight Bearing Right Lower Extremity: Right Weight Bearing/Tolerated Left Lower Extremity: Left Weight Bearing/Tolerated Exercises Seated Therapy Exercises: Ankle pumps, Sit to stand, Long arc quads Seated Reps: 10 Treatments transfers Assessment Current Status: Good Progress Improved activity level today, however patient is limited due to OA of L hip and declined ambulation. We discussed LE exercises to complete and he verbalizes good understanding. Pt. up in bedside chair post session with call light and all needs met. PT Short Term Goals Short Term Goals Time Frame: March 14, 2018 Transfers (B,C,W/C) (FIM): 4 Gait (FIM): 2 Gait Distance Comment: 50' Gait Level of Assist: 4 Gait Assistive Device: FWW PT Plan Treatment/Plan Treatment Plan: Continue Plan of Care Treatment Plan: Bed Mobility, Education, Functional Activity Isidoro, Functional Strength, Gait, Safety, Therapeutic Exercise, Transfers Treatment Duration: March 14, 2018 Frequency: 6 times per week Estimated Hrs Per Day: .25 hour per day (15-30') Patient and/or Family Agrees t: Yes Time/GCodes Time In: 1100 Time Out: 1110 Total Billed Treatment Time: 10 Total Billed Treatment 1, FA 10' PT/OT Therapy GCodes Therapy Functional Limitation: Physical Therapy Test(s)/Tool used to determine: Level of Assistance Scale Functional Limitation-Current Charge Code: TYE Modifier: KEELEY Functional Limitation-Goal Charge Code: ALLEGRA Modifier: ANN MARIE DAVENPORT PT Mar 08, 2018 11:34
[2018-03-08 12:00] VITALS: BP 137/85
--- NOTE | 2018-03-08 14:27 | Discharge Summary ---
Diagnosis/Chief Complaint Date of Admission Mar 06, 2018 at 12:41 Date of Discharge 03/08/18 Admission Diagnosis Admission Diagnosis 1. Influenza B 2. Pneumonia 3. Rhabdomyolysis 4. mild ROBEL likely secondary to #3 5. Bilateral lower extremity muscle pain Discharge Diagnosis Assessment & Plan 1. Influenza B - started Tamiflu on admission 03/08 -Day 3 Tamiflu -DC isolation, abebrile for >48 hours -pt feeling well and would like discharge -will discharge with remaining Tamiflu 2. Pneumonia - RULED OUT - possible infiltrate R lung based - started Rocephin, Zithromax - wbc 13.4 w/ left shift; CRP 8, lactic acid 1.73 03/07 - repeat CXR showed better aeration, no evidence of pneumonia - DC antibiotics 03/08 -abx were not dc'ed yesterday for unclear reasons, will DC on 5 days doxycycline and 2 days azithromycin 3. Rhabdomyolysis - myoglobin approx 1400; CK 2440 - no evidence of statin therapy on med rec/ext med hx - unsure of etiology - tx w/ IVF 03/07 - CK improved to 713, continued LE pain 03/08 -pt denies leg pain since he was started on requip yesterday morning -CK continues to trend down, will need follow up recheck in the office at follow up appt to assure resolution -will also discharge on requip as it appears pt has a restless leg syndrome component to his leg pain 4. mild ROBEL likely secondary to #3 - IVF 03/07 - Cr 0.66 RESOLVED 5. Bilateral lower extremity muscle pain 03/07 - obtain emigdio venous doppler for further evaluation - DC Fentanyl and order PT 03/08 -no DVT seen on doppler studies -pain much improved after starting requip -CK improving at almost back to baseline, needs recheck at office follow up or shortly after Chief Complaint/HPI Chief Complaint/HPI This is a 57 yo male who presented to the ER w/ c/o of bilateral leg pain which started the night prior to coming to the ER and worsened overnight. No known injury. States pain is worse in the back of the thighs and calves bilaterally. Denies significant upper extremity pain. Reported a low grade fever, cough and SOA. Pt tested positive for Flu B in the ER and a perihilar infiltrate was noted on the CXR. Myoglobin was noted to be elevated at approx 1400 and CK was 2440. Per ER physician pt had been on a statin medication. At the time of my exam pt was unsure about what medication he was on and unsure if he took any cholesterol medication or when he last took his medication. Pt is a poor historian and further history difficult to obtain. Discharge Summary-OBS Procedures None. Consultations Discharge Physical Examination Allergies: Coded Allergies: codeine (Verified Allergy, Unknown, Pt has received Lortab & morphine in the past, 05/30/17) Vitals & I&Os Intake and Output 03/08/18 00:00 Intake Total 3060 ml Output Total 3125 ml Balance -65 ml Vital Sign - Last 12Hours Date Time Temp Pulse Resp B/P (MAP) Pulse Ox O2 Delivery O2 Flow Rate FiO2 03/08/18 13:00 99 03/08/18 12:00 99.2 20 137/85 (102) 95 Room Air 03/08/18 07:35 1.00 03/06/18 14:23 32 General Appearance: Alert, Oriented X3, Cooperative, No Acute Distress HEENT: Atraumatic, EOMI, Mucous Memb Moist/[place] Respiratory: Normal Air Movement, Other (mild coarseness on right) Cardiovascular: Regular Rate, Normal S1, Normal S2 Abdominal: Normal Bowel Sounds, Soft, No Tenderness, No Masses Extremities: No Clubbing, No Cyanosis, No Edema Skin: No Rashes, No Significant Lesion Neuro: Normal Gait, Normal Speech, Normal Tone, Sensation Intact, Cranial Nerves 3-12 NL, Reflexes 2+ Psych/Mental Status: Mental Status NL, Mood NL Hospital Course Labs Laboratory Tests 03/08/18 04:39: White Blood Count 7.8, Red Blood Count 3.88L, Hemoglobin 11.9L, Hematocrit 36L, Mean Corpuscular Volume 92, Mean Corpuscular Hemoglobin 31, Mean Corpuscular Hemoglobin Concent 33, Red Cell Distribution Width 13.7, Platelet Count 226, Mean Platelet Volume 9.5, Sodium Level 141, Potassium Level 4.4, Chloride Level 107, Carbon Dioxide Level 24, Anion Gap 10, Blood Urea Nitrogen 8, Creatinine 0.64, Estimat Glomerular Filtration Rate > 60, BUN/Creatinine Ratio 13, Glucose Level 112H, Calcium Level 9.3, Total Bilirubin 0.3, Aspartate Amino Transf (AST/ SGOT) 28, Alanine Aminotransferase (ALT/SGPT) 29, Alkaline Phosphatase 88, Total Creatine Kinase 305H, Total Protein 7.1, Albumin 3.5 Microbiology 03/06/18 Blood Culture - Preliminary, Resulted No growth 03/06/18 Influenza Types A,B Antigen (TIA) - Final, Complete Radiology Reviewed Date of Exam: 03/06/18 CHEST 1 VIEW, AP/PA ONLY PATIENT HISTORY: Fever, chills. TECHNIQUE: Single frontal view of the chest. COMPARISON: 05/28/2017. FINDINGS: The lung volumes are low. There is airspace opacity in the right lung base which appears new. No pleural effusion or pneumothorax is seen. The cardiac silhouette is upper normal in size. Degenerative changes are seen in the shoulders bilaterally. IMPRESSION: New airspace opacity in the right lung base which may represent infection versus atelectasis. Discharge Condition at discharge Stable Instructions to patient/family Please see electronic discharge instructions given to patient. Discharge Medications Reviewed and agree with Discharge Medication list on patient's Discharge Instruction sheet Clinical Quality Measures DVT/VTE Risk/Contraindication: Risk Factor Score Per Nursin RFS Level Per Nursing on Admit: 4+=Very High Risk Score Comment: Billy started Copy Copies To 1: [facility]/ALTON JACKSON DO Mar 08, 2018 14:27
[2018-03-08] MEDS ORDERED: OSLT75C PO (14:33)
[2018-03-08] MEDS ORDERED: DOXY100T19 PO (14:33)
[2018-03-08] MEDS ORDERED: AZIT250T12 PO (14:33)
[2018-03-08] MEDS ORDERED: RPN.25T PO (14:33)
--- NOTE | 2018-03-08 14:37 | Discharge Instructions ---
Discharge [facility] Discharge Medications New, Converted or Re-Newed RX: Transmitted to Pharmacy New Medications: Doxycycline Monohydrate (Doxycycline Monohydrate) 100 Mg Tablet 100 MG PO BID for 5 Days, #10 TAB 0 Refills Azithromycin (Azithromycin) 250 Mg Tablet 250 MG PO DAILY for 2 Days, #2 TAB Oseltamivir Phosphate (Tamiflu) 75 Mg Cap 1 EACH PO BID for 3 Days, #6 CAP Take 1 cap twice daily until gone Ropinirole HCl (Requip) 0.25 Mg Tab 0.25 MG PO DAILY for 28 Days, #28 TAB Continued Medications: Amlodipine Besylate (Amlodipine Besylate) 5 Mg Tablet 5 MG PO DAILY, TAB LAST FILLED #90 11-20-17 Citalopram Hydrobromide (Citalopram HBr) 20 Mg Tablet 20 MG PO DAILY, TAB Cyclobenzaprine HCl (Cyclobenzaprine HCl) 10 Mg Tablet 10 MG PO TID PRN for MUSCLE SPASMS, TAB Gabapentin (Gabapentin) 800 Mg Tablet 800 MG PO TID, TAB Ketorolac Tromethamine (Ketorolac Tromethamine) 10 Mg Tablet 10 MG PO Q6H PRN for MUSCLE SPASMS, TAB FILLED 5 DAY SUPPLY 02-24-18 Sildenafil Citrate (Sildenafil Citrate) 100 Mg Tablet 100 MG PO UD PRN for ED, TAB Trazodone HCl (Trazodone HCl) 150 Mg Tablet 150 MG PO HS PRN for SLEEP, TAB Discontinued Medications: Indomethacin (Indomethacin) 25 Mg Capsule 25 MG PO BID, CAP LAST FILLED #30 (15 DAYS) 02-17-18 Patient Instructions Patient Instructions -take all medications as prescribed -follow up with PCP in 1 week -return to hospital for chest pain or pressure, shortness of breath out of normal for patient, nausea or vomiting that makes you unable to keep down medication or clear liquids for more than 12 hours, fever >101 that does not go down with tylenol or ibuprofen, if directed by pension examiner provider, or with any other emergent complaints or concerns Goal/Follow Up Appt: PCP at [facility] in 1 week Return to The Hospital For: return to hospital for chest pain or pressure, shortness of breath out of normal for patient, nausea or vomiting that makes you unable to keep down medication or clear liquids for more than 12 hours, fever >101 that does not go down with tylenol or ibuprofen, if directed by pension examiner provider, or with any other emergent complaints or concerns Activity & Diet Discharge Diet: Cardiac Diet Activity as Tolerated: Yes Orders-Post D/C & Referrals Pneu Vac Indicated: Yes Copy Copies To 1: [facility]/ALTON JACKSON DO Mar 08, 2018 14:37
[2018-03-08] MEDS ORDERED: OSELTAMIVIR 75 MG (TAMIFLU) BOX OF 10 PO SCH (15:00)
[2018-03-08] MEDS ORDERED: RELABEL FOR HOME USE MC SCH (15:00)
[2018-03-08] MEDS: ENOXAPARIN 40 MG/0.4 ML (LOVENOX) SYR SQ SCH (16:11)
[2018-03-08 16:33] VITALS: BP 123/77
== END 2018-03-08 14:33 | disposition home or self-care (01) ==
LOC: EDUNIT# 09:16 → ER 09:19 → 4TH 12:41 → UNDOADMOB 12:41 → 4TH 16:00 → UNDODISOB 03-08 18:37
PROVIDERS: ADMIT Family Medicine; ATTEND Family Medicine
DX: J10.1 Influenza due to other identified influenza virus with other respiratory manifestations (principal); M62.82 Rhabdomyolysis; N17.9 Acute kidney failure, unspecified; M48.02 Spinal stenosis, cervical region; E66.9 Obesity, unspecified; G62.9 Polyneuropathy, unspecified; K21.9 Gastro-esophageal reflux disease without esophagitis; M19.90 Unspecified osteoarthritis, unspecified site; Z88.5 Allergy status to narcotic agent; Z68.31 Body mass index [BMI] 31.0-31.9, adult
CPT/HCPCS: 36415; 71045; 71046; 80053; 81000; 82550; 82553; 83605; 83874; 84484; 85007; 85025; 85027; 85610; 85652; 85730; 86141; 87040; 87804; 93005; 93041; 93970; 94640; 94760; 96361; 96365; 96375; G0378

== ENCOUNTER 2018-06-25 11:30 | Outpatient (RCR) | payer MEDICAID ==
[~2018-06-25 11:30] MED LIST changes: +AZIT250T12 PO; +DOXY100T19 PO; +GABA800T2 PO; +INDO25CA15 PO; +KETO10TA PO; +LISI10TA2 PO; +OSLT75C PO; +RPN.25T PO; +SILD100T67 PO; +TRAZ150T72 PO
== END 2018-06-25 12:07 | disposition home or self-care (01) ==
PROVIDERS: ATTEND Orthopaedic Surgery
DX: Z47.1 Aftercare following joint replacement surgery (principal); Z96.642 Presence of left artificial hip joint

== ENCOUNTER → 2019-11-05 | Outpatient (CLI) | payer MEDICAID, OTHER ==
[~2019-11-05] MED LIST changes: -AMLO5TAB2 PO; +AMLO5TAB9 PO; +GABA800T10 PO; -GABA800T2 PO
--- NOTE | 2019-11-05 14:05 | Diagnostic Imaging Report ---
PROCEDURE: CT sinuses without contrast TECHNIQUE: Multiple contiguous axial images were obtained through the sinuses without the use of intravenous contrast. Coronal and sagittal reformations were then performed. Auto Exposure Controls were utilized during the CT exam to meet ALARA standards for radiation dose reduction. INDICATION: Chronic sinusitis. FINDINGS: The frontal sinus is clear. Minimal mucosal thickening of anterior right ethmoid air cells is noted. The sphenoid sinus is clear. The left maxillary sinus is clear. The right maxillary sinus is nearly completely opacified. Mastoids are well aerated. Left ostiomeatal complex is patent. Right ostiomeatal complex is occluded. IMPRESSION: Findings consistent with right maxillary sinusitis. There is also right anterior ethmoid mucosal disease. Dictated by: Dictated on workstation # [id number]
== END ==
LOC: RAD 13:17
PROVIDERS: ATTEND Nurse Practitioner Community Health
DX: J32.0 Chronic maxillary sinusitis (principal)
CPT/HCPCS: 70486

== ENCOUNTER → 2019-12-28 | Outpatient (CLI) | payer OTHER ==
[~2019-12-28] MED LIST changes: -DOXY100T19 PO; +DOXY100T31 PO; -INDO25CA15 PO; +INDO25CA99 PO
--- NOTE | 2019-12-28 10:31 | Diagnostic Imaging Report ---
PROCEDURE: MRI right joint lower extremity without contrast. TECHNIQUE: Multiplanar, multisequence [id number] MRI of the right lower extremity was accomplished. INDICATION: Left knee pain with recent injury. COMPARISON: None available. FINDINGS: Medial compartment: There is diffuse full-thickness articular cartilage loss throughout the weightbearing aspect of the medial compartment. Underlying subchondral bone marrow edema is present on both sides of the joint indicative of grade IV chondromalacia. There is associated degenerative macerated tearing throughout the entire medial meniscus. The body of the medial meniscus is completely extruded into the medial gutter. Lateral compartment: Articular cartilage is well preserved throughout the lateral compartment. There is some minimal degenerative free edge truncation in the posterior horn of the lateral meniscus. Otherwise, there is no tear within the lateral meniscus. Patellofemoral compartment: Full-thickness chondromalacia within the central patellar apex. Multifocal partial-thickness chondromalacia is seen throughout the trochlea and remainder of the patella. 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 No features of instability or synchondrosis. Tendons and ligaments: The ACL and PCL are intact. The medial and lateral collateral ligamentous complexes are normal. Extensor mechanism is intact. Bones: No fracture or concerning focal osseous lesion. Soft tissues: Small knee joint effusion with mild degenerative synovitis. No Zamorano's cyst. IMPRESSION: 1. Severe degenerative arthritis in the medial compartment has diffuse full-thickness articular cartilage loss throughout the weightbearing aspect, and there is associated degenerative macerated tearing throughout the entire medial meniscus. 2. [id number] degenerative changes are also present in the patellofemoral compartment. Dictated by: Dictated on workstation # [id number]
== END ==
LOC: RAD 09:08
PROVIDERS: ATTEND Nurse Practitioner Community Health
DX: M17.12 Unilateral primary osteoarthritis, left knee (principal)
CPT/HCPCS: 73721

== ENCOUNTER → 2020-02-02 | Outpatient (CLI) | payer OTHER ==
[~2020-02-02] MED LIST changes: +LISI-552 PO; +MELO7.5T46 PO; +METF-397 PO; +OMEP-254 PO; +OXYC-529 PO; +RT-ALBUINH IH; +TRM50T PO
--- NOTE | 2020-02-02 12:14 | Diagnostic Imaging Report ---
INDICATION: Elevated liver enzymes. CT abdomen obtained pre- and post-IV contrast. TECHNIQUE: Multiple contiguous axial CT images of the abdomen were obtained prior to and after intravenous administration of iodinated contrast. Auto Exposure Controls were utilized during the CT exam to meet ALARA standards for radiation dose reduction. Comparison made to 11/11/2014. The visualized portions of the lung bases are clear. There is no pleural fluid collection. There is no free intraperitoneal air. The liver is replaced by numerous mass lesions throughout both lobes, suspicious for metastatic disease. The largest lesion in the dome of the right lobe of the liver measuring about 10.6 x 8.6 cm. There are lesions in the left lobe as well as in the caudate lobe. The gallbladder is contracted. The spleen, adrenals, and pancreas appear normal. The kidneys bilaterally appear unremarkable. There is no retroperitoneal mass or adenopathy. There is no ascites. IMPRESSION: Numerous large masses are seen throughout the liver highly suspicious for metastatic disease. There is no biliary dilatation. Report was faxed/called to Abby/guest relation officer of [employer] by jorge at 12:12p.m. Dictated by: Dictated on workstation # [id number]
== END ==
LOC: RAD 11:17
PROVIDERS: ATTEND Nurse Practitioner Community Health
DX: R16.0 Hepatomegaly, not elsewhere classified (principal)
CPT/HCPCS: 74170

== ENCOUNTER 2020-02-05 08:32 | Day surgery (SDC) | payer OTHER ==
[~2020-02-05] VITALS: Ht 170.2 cm; Wt 81.6 kg
[~2020-02-05 08:32] MED LIST changes: -LISI-552 PO; -MELO7.5T46 PO; -METF-397 PO; -OMEP-254 PO; -OXYC-529 PO; -RT-ALBUINH IH; -TRM50T PO
[2020-02-05] MEDS ORDERED: NS IV 1000 ML 1,000 ML IV STA (08:48)
[2020-02-05 08:55] VITALS: BP 101/65
[2020-02-05] MEDS ORDERED: MIDAZOLAM 2 MG/2 ML (VERSED) VIAL IVP ONE (09:00)
[2020-02-05] MEDS ORDERED: fentaNYL INJECTION 100 MCG/2 ML AMP IVP ONE (09:00)
[2020-02-05] MEDS ORDERED: LIDOCAINE 1% INJ 20 ML 20 ML VIAL INJ ONE (09:00)
[2020-02-05 09:22] LABS: BASOPHILS % (AUTO) 0 % (0-10); EOSINOPHILS # (AUTO) 0.1 10^3/uL (0.0-0.3); EOSINOPHILS % (AUTO) 1 % (0-10); HEMATOCRIT 36 % (40-54); HEMOGLOBIN 11.6 G/DL (13.3-17.7); LYMPHOCYTES # (AUTO) 0.7 X 10^3 (1.0-4.0); LYMPHOCYTES % (AUTO) 8 % (12-44); MEAN CORPUSCULAR HEMOGLOBIN 29 PG (25-34); MEAN CORPUSCULAR HGB CONC 33 G/DL (32-36); MEAN CORPUSCULAR VOLUME 88 FL (80-99); MEAN PLATELET VOLUME 10.4 FL (7.4-10.4); MONOCYTES # (AUTO) 1.3 X 10^3 (0.0-1.0); MONOCYTES % (AUTO) 14 % (0-12); NEUTROPHILS # (AUTO) 7.3 X 10^3 (1.8-7.8); NEUTROPHILS % (AUTO) 77 % (42-75); PLATELET COUNT 365 10^3/uL (130-400); RED CELL DISTRIBUTION WIDTH 13.7 % (10.0-14.5); WHITE BLOOD COUNT 9.4 10^3/uL (4.3-11.0)
[2020-02-05 09:27] LABS: INR 1.2 (0.8-1.4); PROTHROMBIN TIME PATIENT 15.4 SEC (12.2-14.7)
--- NOTE | 2020-02-05 10:00 | NUR ---
Pt transported to CT scanner for liver bx. Pt diaphoretic, tachycardic, hypotensive. Pt oriented but lethargic, sleepy but easy to arouse. Pt states, "I feel woozy." Dr. Rendon called Dr. Licona, ED physician. To take patient to ED to get assessed. 1030: Pt transported to ED via gurney. Report given to MICHELLE Mckinney. Addendum: 02/05/20 at 1122 by MICKIE ROUSE RN Liver biopsy procedure not performed due to concerns of patient presentation. Pt transported to ED.
[2020-02-05 10:10] VITALS: BP 87/52
[2020-02-05 10:15] VITALS: BP 79/53
[2020-02-05 10:16] LABS: BAND NEUTROPHILS 1 %; BASOPHILS % (MANUAL) 0 %; EOSINOPHILS % (MANUAL) 2 %; LYMPHOCYTES % (MANUAL) 5 %; MONOCYTES % (MANUAL) 9 %; NEUTROPHILS % (MANUAL) 83 %; RBC MORPH NORMAL
[2020-02-05 10:20] VITALS: BP 101/71
[2020-02-05 10:25] VITALS: BP 85/68
--- NOTE | 2020-02-05 10:50 | NUR ---
RECEIVED REPORT THAT THE PATIENT WAS DISCHARGED FROM RADIOLOGY TO EMERGENCY DEPARTMENT FROM [employer] [employer]K OFFICER.
[2020-02-05] MEDS ORDERED: OMEP-254 PO (14:19)
[2020-02-05] MEDS ORDERED: RT-ALBUINH IH (14:19)
[2020-02-05] MEDS ORDERED: MELO7.5T46 PO (14:19)
[2020-02-05] MEDS ORDERED: LISI-552 PO (14:19)
[2020-02-05] MEDS ORDERED: OXYC-529 PO (14:19)
[2020-02-05] MEDS ORDERED: TRM50T PO (14:19)
[2020-02-05] MEDS ORDERED: METF-397 PO (14:38)
== END 2020-02-05 11:06 | disposition home or self-care (01) ==
LOC: RAD 08:32
PROVIDERS: ATTEND Internal Medicine
DX: R16.0 Hepatomegaly, not elsewhere classified (principal); R74.8 Abnormal levels of other serum enzymes; Z53.9 Procedure and treatment not carried out, unspecified reason
CPT/HCPCS: 36415; 85007; 85027; 85610

== ENCOUNTER 2020-02-05 10:42 | Inpatient (IN) | payer OTHER ==
[~2020-02-05] VITALS: Ht 170 cm; Wt 102.0 kg
--- NOTE | 2020-02-05 10:50 | ED General ---
General Source of Information: Patient Exam Limitations: No Limitations History of Present Illness Date Seen by Provider: Feb 05, 2020 Time Seen by Provider: 10:45 Initial Comments To ER from radiology department where he was to have an outpatient liver biopsy for numerous large masses in the liver seen on recent CT abdomen and pelvis to evaluate the elevated liver function tests. These were concerning for metastatic disease. He at some point became "pasty and hypotensive". He was brought to ER on a gurney with a pressure of 82/68 but alert. He states he feels fine other than a bit lethargic, does not have any pain no fever no cough no shortness of breath. At the time of my exam Exam about 5 minutes after arrival to room his pressure had already increased to 107/73 heart rate 98 no ectopy. Timing/Duration: 1-2 Days Severity: Moderate Associated Systoms: Denies Symptoms Allergies and Home Medications Allergies Coded Allergies: codeine (Verified Allergy, Unknown, Pt has received Lortab & morphine in the past, 05/30/17) Home Medications Amlodipine Besylate 5 Mg Tablet, 5 MG PO DAILY, (Reported) LAST FILLED #90 11-20-17 Azithromycin 250 Mg Tablet, 250 MG PO DAILY Prescribed by: ALTON CORBETT on 03/08/18 1433 Citalopram Hydrobromide 20 Mg Tablet, 20 MG PO DAILY, (Reported) Cyclobenzaprine HCl 10 Mg Tablet, 10 MG PO TID PRN for MUSCLE SPASMS, (Reported) Doxycycline Monohydrate 100 Mg Tablet, 100 MG PO BID Prescribed by: ALTON CORBETT on 03/08/18 1433 Gabapentin 800 Mg Tablet, 800 MG PO TID, (Reported) Ketorolac Tromethamine 10 Mg Tablet, 10 MG PO Q6H PRN for MUSCLE SPASMS, (Reported) FILLED 5 DAY SUPPLY 02-24-18 Oseltamivir Phosphate 75 Mg Cap, 1 EACH PO BID Take 1 cap twice daily until gone Prescribed by: ALTON CORBETT on 03/08/18 143 Ropinirole HCl 0.25 Mg Tab, 0.25 MG PO DAILY Prescribed by: ALTON CORBETT on 03/08/18 1433 Sildenafil Citrate 100 Mg Tablet, 100 MG PO UD PRN for ED, (Reported) Trazodone HCl 150 Mg Tablet, 150 MG PO HS PRN for SLEEP, (Reported) Patient Home Medication List Home Medication List Reviewed: Yes Review of Systems Review of Systems Constitutional: see HPI, other (near syncope) EENTM: see HPI Respiratory: no symptoms reported Cardiovascular: no symptoms reported Genitourinary: no symptoms reported Musculoskeletal: no symptoms reported Skin: no symptoms reported Psychiatric/Neurological: No Symptoms Reported Hematologic/Lymphatic: No Symptoms Reported Physical Exam Vital Signs Vital Signs - First Documented 02/05/20 11:00 Temp 36.9 Pulse 102 Resp 18 B/P (MAP) 102/73 (83) Pulse Ox 95 O2 Delivery Room Air Capillary Refill : Height, Weight, BMI Height: '" Weight: lbs. oz. kg; BMI Method: General Appearance: No Apparent Distress, WD/WN, Chronically ill, Other (no diaphoresis alert and oriented blood pressure 107/73 heart rate 85 sinus respiratory rate of 12. 1 L of LR is infusing) Eyes: Bilateral Eye Normal Inspection, Bilateral Eye PERRL, Bilateral Eye EOMI Neck: Full Range of Motion, Normal Inspection Respiratory: No Accessory Muscle Use, No Respiratory Distress Cardiovascular: Regular Rate, Rhythm, Normal Peripheral Pulses Gastrointestinal: Non Tender, Other (abdomen is firm but nontender to palpation) Extremity: Normal Capillary Refill, Normal Inspection Neurologic/Psychiatric: Alert, Oriented x3 Skin: Normal Color, Warm/Dry Focused Exam Lactate Level 02/05/20 12:42: Lactic Acid Level 1.86 Lactic Acid Level Laboratory Tests Test 02/05/20 12:42 Lactic Acid Level 1.86 MMOL/L (0.50-2.00) Progress/Results/Core Measures Suspected Sepsis SIRS Temperature: Pulse: Respiratory Rate: Laboratory Tests 02/05/20 11:08: White Blood Count 7.2 Blood Pressure / Mean: 02/05/20 12:42: Lactic Acid Level 1.86 Laboratory Tests 02/05/20 11:08: Creatinine 1.05, INR Comment 1.2, Platelet Count 293, Total Bilirubin 1.7H Results/Orders Lab Results Laboratory Tests Test 02/05/20 11:08 02/05/20 12:42 Range/Units White Blood Count 7.2 4.3-11.0 10^3/uL Red Blood Count 3.62 L 4.35-5.85 10^6/uL Hemoglobin 10.2 L 13.3-17.7 G/DL Hematocrit 32 L 40-54 % Mean Corpuscular Volume 88 80-99 FL Mean Corpuscular Hemoglobin 28 25-34 PG Mean Corpuscular Hemoglobin Concent 32 32-36 G/DL Red Cell Distribution Width 13.7 10.0-14.5 % Platelet Count 293 130-400 10^3/uL Mean Platelet Volume 9.9 7.4-10.4 FL Neutrophils (%) (Auto) 76 H 42-75 % Lymphocytes (%) (Auto) 10 L 12-44 % Monocytes (%) (Auto) 14 H 0-12 % Eosinophils (%) (Auto) 1 0-10 % Basophils (%) (Auto) 0 0-10 % Neutrophils # (Auto) 5.4 1.8-7.8 X 10^3 Lymphocytes # (Auto) 0.7 L 1.0-4.0 X 10^3 Monocytes # (Auto) 1.0 0.0-1.0 X 10^3 Eosinophils # (Auto) 0.1 0.0-0.3 10^3/uL Basophils # (Auto) 0.0 0.0-0.1 10^3/uL Prothrombin Time 15.4 H 12.2-14.7 SEC INR Comment 1.2 0.8-1.4 Sodium Level 130 L 135-145 MMOL/L Potassium Level 4.7 3.6-5.0 MMOL/L Chloride Level 99 98-107 MMOL/L Carbon Dioxide Level 21 21-32 MMOL/L Anion Gap 10 5-14 MMOL/L Blood Urea Nitrogen 39 H 7-18 MG/DL Creatinine 1.05 0.60-1.30 MG/DL Estimat Glomerular Filtration Rate > 60 BUN/Creatinine Ratio 37 Glucose Level 80 70-105 MG/DL Calcium Level 8.3 L 8.5-10.1 MG/DL Corrected Calcium 9.1 8.5-10.1 MG/DL Total Bilirubin 1.7 H 0.1-1.0 MG/DL Aspartate Amino Transf (AST/SGOT) 116 H 5-34 U/L Alanine Aminotransferase (ALT/SGPT) 88 H 0-55 U/L Alkaline Phosphatase 218 H 40-136 U/L Ammonia 36 H 11-32 UMOL/L Troponin I < 0.028 <0.028 NG/ML Total Protein 5.8 L 6.4-8.2 GM/DL Albumin 3.0 L 3.2-4.5 GM/DL Lactic Acid Level 1.86 0.50-2.00 MMOL/L My Orders Orders - HUGO JAY DRIP PUMPER Cbc With Automated Diff (02/05/20 10:44) Comprehensive Metabolic Panel (02/05/20 10:44) Ekg Tracing (02/05/20 10:44) Troponin I (02/05/20 10:44) Chest 1 View, Ap/Pa Only (02/05/20 10:44) Protime With Inr (02/05/20 10:44) Ammonia (02/05/20 10:44) Ns Iv 1000 Ml (Sodium Chloride 0.9%) (02/05/20 12:15) Blood Culture (02/05/20 12:32) Lactic Acid Analyzer (02/05/20 12:32) Vital Signs/I&O 02/05/20 02/05/20 11:00 13:13 Temp 36.9 Pulse 102 90 Resp 18 20 B/P (MAP) 102/73 (83) 107/68 Pulse Ox 95 95 O2 Delivery Room Air Room Air Capillary Refill : Departure Communication (Admissions) Time/Spoke to Admitting Phy: 12:[address] Avilez due to the ongoing hypotension despite 1 L of IV fluids he is at 88/69 which gives a map of 78. Heart rate 90. Still alert. I do not believe the cause of his hypotension to be septic 1238-he remains alert and oriented his blood pressure was as high as 105/80 heart rate is 96 without ectopy. This was the highest blood pressure reading we had followed by 3 readings 15 minutes apart in the 80s systolic. For this reason we'll admit, hold his Norvasc and Viagra which is the only 2 medications I can see that he is on that would affect blood pressure Impression Primary Impression: hypotension Additional Impression: Liver masses Disposition: ADMITTED INPATIENT Condition: Stable Admissions Decision to Admit Reason: Admit from ER (General) Decision to Admit/Date: Feb 05, 2020 Time/Decision to Admit Time: 13:26 Departure-Patient Inst. Decision time for Depature: 10:51 Patient Instructions: Low Blood Pressure, Near Fainting (DC) Add. Discharge Instructions: 1. Go home and rest. Return to ER for any concerns Return to ER for any worsening. HUGO JAY APRN Feb 05, 2020 10:50
--- OUTSIDE RECORDS SUMMARY | 2020-02-05 10:55 | XMS REPORT ---
Author Author [facility] Organization [facility] Address [address] [address] Care Team Providers Care Head Coach Name Role Phone [facility] [employer] [facility] Unavailable [facility] Unavailable RENAE MCKEON Unavailable Allergies No Information Medications Medication Ingredient Drug Dose Dates Status Sig Sig Care Class(es) (Normalized) (Original) Provid er acetaminoph acetaminoph Opioid 06-03-20 Complete take 7.5 Acetam inophe Jayleen en 325 mg / en / Agonist 17 - d tablets by n/Hydrocodon Fatmata HYDROcodone HYDROcodone 03-06-20 mouth every e Bitart (no bitartrate 18 four hours (Lortab 7.5 phone) 7.5 mg oral as needed Mg Tablet) 1 tablet (2 for pain, Each Tablet, sources.) then take 1-2 Ea Oral 1-1 tablets Every 4HRS by mouth as as needed needed for for pain Pain-Moderat e 06/03/17 Discontinued azithromyci azithromyci Macrolide 250 mg 03-08-20 Complete take 1 Azithromycin Margar n 250 mg n Antimicrobi 18 - d tablet by 250 Mg et E oral tablet al 03-10-20 mouth once Tablet 250 Barnid (2 18 daily Mg ORAL ge (no sources.) Daily 2 Days phone) 2 Tab 03/08/18 doxycycline doxycycline Tetracyclin 100 mg 03-08-20 Complete take 1 Doxycycline Margar monohydrate e-class 18 - d tablet by Monohydrate e t E 100 mg oral Drug 03-13-20 mouth twice 100 Mg Barnid tablet (2 18 daily Tablet 100 ge (no sources.) Mg ORAL phone) Twice A Day 5 Days 10 Tab 03/08/18 indomethaci indomethaci Nonsteroida 25 mg 03-08-20 Complete take 1 Indomethacin (no n 25 mg n l 18 d capsule by 25 Mg phone) oral Anti-inflam mouth twice Capsule, 25 capsule (2 matory Drug daily Mg Oral sources.) Twice A Day Discontinued ketorolac ketorolac Nonsteroida 10 mg Complete take 1 Ketorolac (no tromethamin l d tablet by Tromethamine phone) e 10 mg Anti-inflam mouth every 10 Mg Tablet oral tablet matory six hours as 10 Mg ORAL (2 Drug, needed for Every 6 sources.) Cyclooxygen muscle Hours as ase spasms, then needed for Inhibitor take 4-16 Muscle tablets by Spasms mouth as FILLED 5 DAY needed for SUPPLY muscle 4-16-18 spasms lisinopril lisinopril Angiotensin 10 mg 03-06-20 Complete take 1 Lisinopril (no 10 mg oral Converting 18 d tablet by 10 Mg ph one) tablet (2 Enzyme mouth once Tablet, 10 sources.) Inhibitor daily Mg Oral Daily Discontinued oseltamivir oseltamivir Neuraminida 75 mg 03-08-20 Complete take 1 Oseltamivir Margar 75 mg oral se 18 - d capsule by Phosphate et E capsule (2 Inhibitor 03-11-20 mouth twice (Tamiflu) 75 Barni d sources.) 18 daily Mg Cap 1 ge (no Each ORAL phone) Twice A Day 3 Days 6 Cap Take 1 cap twice daily until gone 03/08/18 predniSONE predniSONE Corticoster 10 mg 06-03-20 Complete take 1 Prednisone Jayleen 10 mg oral oid 17 - d tablet by 10 Mg Garne r tablet (2 03-06-20 mouth once Tab.ds.pk, (no sources.) 18 daily, then 10 Mg Oral phone) take 1 Daily tablet by 06/03/17 mouth Discontinued rOPINIRole rOPINIRole Nonergot 0.25 03-08-20 Complete take 1 R opinirole Margar 0.25 mg Dopamine mg 18 - d tablet by Hcl (Requip) et E oral tablet Agonist 04-05-20 mouth once 0.25 Mg Tab Barnid (2 18 daily 0.25 Mg ORAL ge (no sources.) Daily 28 phone) Days 28 Tab 03/08/18 traZODone traZODone Serotonin 150 mg Complete take 1 Trazodone (no hydrochlori Reuptake d tablet by Hcl 150 Mg phone) de 150 mg Inhibitor mouth at Tablet 150 oral tablet bedtime as Mg ORAL (2 needed for Bedtime as sources.) sleep needed for Sleep Problems Active Problems Problem Normalized Date of Normalized Normalized Provider Fac ility Classification Problem(s) Problem Problem Problem Sta tus Onset/Resoluti Duration on Pneumonia (2 Pneumonia Episodic Active COMMUNITY Via [facility] sources.) [address] ([id number]) Other Rhabdomyolysis Episodic Active COMMUNITY Via [facility] connective [facility] tissue disease [address] [place] [address] (2 sources.) ([id number]) Unclassified no information no information Active COMMUNITY Via [facility] ([address] ([address]) Past or Other Problems Problem Normalized Date of Normalized Normalized Provider Fac ility Classification Problem(s) Problem Problem Problem Sta tus Onset/Resoluti Duration on Influenza (2 Influenza no information no information COMMUNITY Via [facility] sources.) [address] ([address]) Unclassified Post-discharge no information no information COMMU NITY [facility] (1 source.) follow-up [address] ([address]) Procedures Procedure Normalized Procedure Procedure Result Performer Facility Date 03-07-2018 Diagnostic radiography no information ART QUINTERO Via [facility] - of chest, combined [place] ([id number]) 03-07-2018 posteroanterior and - lateral 03-07-2018 03-07-2018 Duplex scan of lower no information ART QUINTERO V ia [facility] - limb veins [place] ([id number]) 03-07-2018 - 03-07-2018 03-06-2018 Electrocardiographic no information EDWIGE T BRUEGG EMANN [facility] - procedure [place] ([id number]) 03-06-2018 - 03-06-2018 03-06-2018 Plain chest X-ray no information EDWIGE Vasquez BRUEGGEMA NN Via [facility] ([id number]) 03-06-2018 - 03-06-2018 Immunizations No Information Results Test Name Value Interpretation Reference Range Date Time Fa cility (Normalized) (Normalized) (Medline Reference) No panel information on null no information no information (no code) Via [facility] ([id number]) venous blood hemoglobin measurement (mass/volume) on 2018-03-08 Hemoglobin (HGB) 11.9 g/dL (L) 12 - 18 g/dL Via [facility] ([id number]) serum or plasma urea nitrogen/creatin ine mass ratio on 2018-03-08 BUN/Creatinine 13 mg/mg (no code) 10 - 20 mg/mg Via [facility] ([id number]) serum or plasma urea nitrogen measurement (mass/volume) on 2018-03-08 Urea nitrogen 8 mg/dL (no code) 7 - 20 mg/dL Via [facility] ([id number]) serum or plasma total bilirubin measurement (mass/volume) on 2018-03-08 Bilirubin 0.3 mg/dL (no code) 0.3 - 1.9 mg/dL Via [facility] (total) [facility] ([id number]) serum or plasma sodium measurement (moles/volume) on 2018-03-08 Sodium 141 mmol/L (no code) 135 - 147 mmol/L Via [facility] ([id number]) serum or plasma protein measurement (mass/volume) on 2018-03-08 Protein 7.1 g/dL (no code) 6.4 - 8.3 g/dL Via [facility] ([id number]) serum or plasma potassium measurement (moles/volume) on 2018-03-08 Potassium 4.4 mmol/L (no code) 3.5 - 5.1 mmol/L Via [facility] ([id number]) serum or plasma glucose measurement (mass/volume) on 2018-03-08 Glucose 112 mg/dL (H) 60 - 125 mg/dL Via [facility] ([id number]) serum or plasma creatinine measurement with calculation of estimated glomerular filtration rate on 2018-03-08 eGFR (non-black) no information (no code) Via [facility] ([id number]) serum or plasma creatinine measurement (mass/volume) on 2018-03-08 Creatinine 0.64 mg/dL (no code) Via [facility] ([id number]) serum or plasma creatine kinase measurement (enzymatic activity/volume) on 2018-03-08 Creatine kinase 305 U/L (H) Via [facility] (CK) [facility] ([id number]) serum or plasma chloride measurement (moles/volume) on 2018-03-08 Chloride 107 mmol/L (no code) 95 - 106 mmol/L Via [facility] ([id number]) serum or plasma calcium measurement (mass/volume) on 2018-03-08 Calcium 9.3 mg/dL (no code) 9 - 11 mg/dL Via [facility] ([id number]) serum or plasma aspartate aminotransferase measurement (enzymatic activity/volume) on 2018-03-08 Aspartate 28 U/L (no code) 10 - 34 U/L Via [facility] (AST) [place] ([id number]) serum or plasma anion gap determination (moles/volume) on 2018-03-08 Anion gap 10 mmol/L (no code) 3 - 11 mmol/L Via [facility] ([id number]) serum or plasma alkaline phosphatase measurement (enzymatic activity/volume) on 2018-03-08 Alkaline 88 U/L (no code) 44 - 147 U/L Via [facility] (ALP) [place] ([id number]) serum or plasma albumin measurement (mass/volume) on 2018-03-08 Albumin 3.5 g/dL (no code) 3.5 - 5.5 g/dL Via [facility] ([id number]) serum or plasma alanine aminotransferase measurement (enzymatic activity/volume) on 2018-03-08 Alanine 29 U/L (no code) 10 - 40 U/L Via [facility] (ALT) [place] ([id number]) carbon dioxide on 2018-03-08 CO2 24 mmol/L (no code) 23 - 29 mmol/L Via [facility] ([id number]) blood leukocytes automated count (number/volume) on 2018-03-08 WBC (Leukocytes) 7.8 10*3/uL (no code) 3.8 - 10.8 Via [facility] 10*3/uL [facility] ([id number]) blood hematocrit (volume fraction) on 2018-03-08 Hematocrit (HCT) 36 % (L) 39 - 51 % Via [facility] ([id number]) blood erythrocytes automated count (number/volume) on 2018-03-08 Erythrocytes 3.88 10*6/uL (L) 4.2 - 6.1 Via [facility] (RBC) 10*6/uL [facility] ([id number]) automated erythrocyte mean corpuscular volume on 2018-03-08 MCV 92 fL (no code) 80 - 100 fL Via [facility] ([id number]) automated erythrocyte mean corpuscular hemoglobin concentration measurement (mass/volume) on 2018-03-08 MCHC 33 g/dL (no code) 32 - 36 g/dL Via [facility] ([id number]) automated erythrocyte mean corpuscular hemoglobin (mass per erythrocyte) on 2018-03-08 MCH 31 pg (no code) 27 - 31 pg Via [facility] ([id number]) automated erythrocyte distribution width ratio on 2018-03-08 RDW-CA 13.7 % (no code) 11 - 15 % Via [facility] ([id number]) automated blood platelet mean volume measurement on 2018-03-08 Platelet mean 9.5 fL (no code) 7.2 - 11.7 fL Via [facility] (PMV) [facility] ([id number]) automated blood platelet count (count/volume) on 2018-03-08 Platelets 226 10*3/uL (no code) 150 - 400 Via [facility] 10*3/uL [facility] ([id number]) blood neutrophils automated count (number/volume) on 2018-03-07 Neutrophils 3.3 10*3/uL (no code) 1.5 - 7.8 Via [facility] 10*3/uL [facility] ([id number]) blood monocytes/100 leukocytes on 2018-03-07 Monocytes/100 9 % (no code) 2 - 8 % Via [facility] leukocytes [facility] ([id number]) blood monocytes automated count (number/volume) on 2018-03-07 Monocytes 0.5 10*3/uL (no code) 0.2 - 1.1 Via [facility] 10*3/uL [facility] ([id number]) blood lymphocytes automated count (number/volume) on 2018-03-07 Lymphocytes 0.9 10*3/uL (L) 0.85 - 4.1 Via [facility] 10*3/uL [facility] ([id number]) automated eosinophil count on 2018-03-07 Eosinophils 0.3 10*3/uL (no code) 0.05 - 1.5 Via [facility] 10*3/uL [facility] ([id number]) automated blood neutrophils/100 leukocytes on 2018-03-07 Neutrophils/100 65 % (no code) 40 - 60 % Via [facility] leukocytes [facility] ([id number]) automated blood lymphocytes/100 leukocytes on 2018-03-07 Lymphocytes/100 19 % (no code) 20 - 40 % Via [facility] (53749) automated blood eosinophils/100 leukocytes on 2018-03-07 Eosinophils/100 7 % (no code) 1 - 4 % Via [facility] (67907) automated blood basophils/100 leukocytes on 2018-03-07 Basophils/100 0 % (no code) 0.5 - 1 % Via [facility] leukocytes [facility] ([id number]) automated blood basophil count (count/volume) on 2018-03-07 Basophils 0.0 10*3/uL (no code) 0 - 0.2 10*3/uL Via [facility] ([id number]) urine urobilinogen measurement by automated test strip (mass/volume) on 2018-03-06 Urine, 1 (no code) Via [facility] urobilinogen [facility] ([id number]) urine total bilirubin detection by test strip on 2018-03-06 Urine, bilirubin no information (no code) Via [facility] ([id number]) urine protein assay by test strip, semi-quantitativ e on 2018-03-06 Urine, protein no information (no code) Via [facility] ([id number]) urine ph measurement by test strip on 2018-03-06 Urine, pH 6.5 [pH] (no code) 4.6 - 8 [pH] Via [facility] ([id number]) urine nitrite detection by test strip on 2018-03-06 Urine, nitrite no information (no code) Via [facility] ([id number]) urine ketones detection by automated test strip on 2018-03-06 Urine, ketones no information (no code) Via [facility] ([id number]) urine glucose detection by automated test strip on 2018-03-06 Urine, glucose no information (no code) Via [facility] ([id number]) urine color determination on 2018-03-06 Urine, color YELLOW (no code) Via [facility] ([id number]) urine clarity determination on 2018-03-06 Urine, clarity SLIGHTLY CLOUDY (no code) Via [facility] ([id number]) squamous epithelial cells detection in urine sediment by light microscopy on 2018-03-06 Urine, squamous RARE (no code) Via [facility] cells [facility] in sediment [place] ([id number]) specific gravity of urine by test strip on 2018-03-06 Urine, specific 1.010 (*) Via [facility] gravity [facility] ([id number]) serum or plasma troponin i.cardiac measurement (mass/volume) on 2018-03-06 Troponin I no information (no code) Via [facility] ([id number]) serum or plasma creatine kinase mb measurement (enzymatic activity/volume) on 2018-03-06 CKMB 33.6 ng/mL (CH) 0 - 2.4 ng/mL Via [facility] ([id number]) serum or plasma c reactive protein measurement (mass/volume) on 2018-03-06 C reactive 7.89 mg/L (H) 0 - 1 mg/L Via [facility] protein (CRP) [facility] ([id number]) prothrombin time (pt) in platelet poor plasma by coagulation assay on 2018-03-06 Coagulation 13.6 s (no code) Via [facility] tissue factor [facility] induced [facility] platelet poor ([id number]) plasma myoglobin, serum on 2018-03-06 Myoglobin 1397.0 ng/mL (H) Via [facility] (88236) mucus detection in urine sediment by light microscopy on 2018-03-06 Urine, mucus no information (no code) Via [facility] presence in [facility] sediment [place] ([id number]) manual eosinophils/100 leukocytes in nose on 2018-03-06 Eosinophils/100 2 % (no code) 1 - 4 % Via [facility] leukocytes [facility] ([id number]) manual blood segmented neutrophils/100 leukocytes on 2018-03-06 Segmented 81 % (no code) 35 - 80 % Via [facility] Neutrophils/100 Hospital leukocytes [place] ([id number]) manual blood lymphocytes/100 leukocytes on 2018-03-06 Lymphocytes/100 7 % (no code) 20 - 40 % Via [facility] leukocytes [facility] ([id number]) manual blood basophils/100 leukocytes on 2018-03-06 Basophils/100 0 % (no code) 0.5 - 1 % Via [facility] leukocytes [facility] ([id number]) leukocyte esterase on 2018-03-06 Urine, leukocyte no information (no code) Via [facility] esterase [facility] ([id number]) inr in platelet poor plasma or blood by coagulation assay on 2018-03-06 INR in blood by 1.0 {INR} (no code) 0.9 - 1.1 {INR} Via hristi coagulation [facility] ([id number]) erythrocytes detection in urine sediment by light microscopy on 2018-03-06 Urine, no information (no code) Via [facility] erythrocytes [facility] ([id number]) erythrocyte sedimentation rate by westergren method on 2018-03-06 Erythrocyte 37 mm/h (H) Via [facility] sedimentation Hospital rate [place] ([id number]) crystals detection in urine sediment by light microscopy on 2018-03-06 Urine, crystals NONE (no code) Via [facility] presence in [facility] sediment [place] ([id number]) complete urinalysis with reflex to culture on 2018-03-06 Complete NO (no code) Via [facility] urinalysis with Hospital reflex to [place] culture ([id number]) casts detection in urine sediment by light microscopy on 2018-03-06 Urine, casts in NONE (no code) Via [facility] ([id number]) blood monocytes/100 leukocytes on 2018-03-06 Monocytes/100 6 % (no code) 2 - 8 % Via [facility] leukocytes [facility] ([id number]) blood lactic acid measurement (moles/volume) on 2018-03-06 Lactate 1.73 mmol/L (no code) 0.5 - 2.2 mmol/L Via [facility] sti [facility] ([id number]) blood erythrocyte morphology finding identification on 2018-03-06 Erythrocyte NORMAL (no code) Via [facility] morphology [facility] ([id number]) blood band neutrophils/100 leukocytes on 2018-03-06 Neutrophils 4 % (no code) 0 - 3 % Via [facility] band/100 Hospital leukocytes [place] ([id number]) bacterial blood culture on 2018-03-06 Bacteria culture No growth (no code) Via [facility] ([id number]) bacteria detection in urine sediment by light microscopy on 2018-03-06 Urine, bacteria no information (no code) Via [facility] in [facility] ([id number]) automated urine sediment leukocyte count by microscopy (number/high power field) on 2018-03-06 Urine, RARE (no code) [id number] automated urine sediment erythrocyte count by microscopy (number/high power field) on 2018-03-06 Urine, RARE (no code) Via [facility] erythrocytes in Hospital sediment [facility] ([id number]) activated partial thromboplastin time (aptt) in platelet poor plasma bycoagulation assay on 2018-03-06 aPTT 28 s (no code) 25 - 35 s Via [facility] ([id number]) Vital Signs The data below is from unstructured sources Vital Response Date/Time Temperature (Fahrenheit) 99.1 degree s F (97.6 - 99.5) 05/31/2017 11:45am Temperature (Calculated Celsius) 37. 73705 degrees C (36.4 - 37.5) 05/31/2017 8:56am Temperature Source Temporal 05/31/2017 11:45am Pulse Rate (adult) 119 bpm (60 - 90) 05/31/2017 11:45am Respiratory Rate 22 bpm (12 - 24) 05/31/2017 11:45am O2 Sat by Pulse Oximetry 95 % (88 - 100) 05/31/2017 11:45am Blood Pressure 157/86 mm Hg 05/31/2017 11:45am Blood Pressure Mean 109 mm Hg 05/31/2017 8:56am Pain Numeric Pain Scale 0-No Pain 05/31/2017 11:45am Pain Intensity 3 2016 11:00am Height (Feet) 5 feet 2:01am Height (Inches) 8.00 inches 05/29/2017 2:01am Height (Calculated Centimeters) 172. 408432 cm 05/29/2017 2:01am Weight (Pounds) 212 pounds 05/29/2017 2:01am Weight (Ounces) 0.0 oz 0 05/29/2017 2:01am Weight (Calculated Grams) 17894.58 gm 05/29/2017 2:01am Weight (Calculated Kilograms) 96.161 583 kilograms 05/29/2017 2:01am Calculated BMI 32.2 05/11 2:01am Capillary Refill Capillary Refill Less Than 3 Seconds 05/29/2017 1:27am Vital Response Date/Time Temperature (Fahrenheit) 98.5 degree s F (97.6 - 99.5) 03/08/2018 4:33pm Temperature (Calculated Celsius) 36. 59849 degrees C (36.4 - 37.5) 03/08/2018 4:33pm Temperature Source Temporal 03/08/2018 4:33pm Pulse Rate (adult) 108 bpm (60 - 90) 03/08/2018 4:33pm Respiratory Rate 20 bpm (12 - 24) 03/08/2018 4:33pm O2 Sat by Pulse Oximetry 93 % (88 - 100) 03/08/2018 4:33pm Blood Pressure 123/77 mm Hg 03/08/2018 4:33pm Blood Pressure Mean 92 mm Hg (65 - 110) 03/08/2018 4:33pm Pain Numeric Pain Scale 0-No Pain 03/08/2018 6:37pm Height (Feet) 5 feet 6:02pm Height (Inches) 7.00 inches 03/06/2018 6:02pm Height (Calculated Centimeters) 170. 817781 cm 03/06/2018 6:02pm Weight (Pounds) 198 pounds 03/06/2018 6:02pm Weight (Ounces) 0.0 oz 0 03/06/2018 6:02pm Weight (Calculated Grams) 60044.29 gm 03/06/2018 6:02pm Weight (Calculated Kilograms) 89.811 290 kilograms 03/06/2018 6:02pm Calculated BMI 31.0 02/10 6:02pm Weight Method Stated 9:19am Weight Measurement Method Built in [employer] e 03/06/2018 6:02pm Capillary Refill Capillary Refill Less Than 3 Seconds 03/06/2018 9:19am No vital sign information available. Interventions No Information Plan of Treatment The data below is from unstructured sources Discharge Date 05/31/17 11:45am Instructions/Education Provided Absc ess Incision and Drainage (DC) Prescriptions See Medication Section Discharge Date 03/08/18 6:37pm Disposition 01 HOME, SELF-CARE Instructions/Education Provided Rest less Legs Syndrome (DC) Community-Acquired Pneumonia, Adult (DC) Forms Provided Follow-Up Fax Prescriptions See Medication Section Referrals PCP (Unspecified) Order Date: 1 Week Entered Date: 03/08/2018 2:37pm Reason(s) for Referral: Hospital discharge follow-up Prescriptions See Medication Section Prescriptions See Medication Section Goals No Information Social History No Information Functional Status The data below is from unstructured sources Query Response Date Anastacio rded Patient Orientation Person Place Time Situation May 30, 2017 9:00am Comprehension Ability Understands Co ncepts May 30, 2017 8:10pm Query Response Date Anastacio rded Patient Orientation Person Place Time Situation March 08, 2018 11:34am Comprehension Ability Understands Co ncepts March 06, 2018 5:49pm No functional status information available. 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 (no phone ) 03-08-2018 inpatient Medical Equipment No Information Payers Normalized Payer Value Unknown [id number]) Advance Directives Directive Response Recor ded Date/Time Advance Directives No 1:43am Health Care Power of Casing Worker No 05/28/17 9:23pm Organ Donor No 05/28/17 9:23pm Resuscitation Status Full Code 05/29/17 1:43am Directive Response Recor ded Date/Time Advance Directives No 5:54pm Health Care Power of Casing Worker No 03/06/18 5:54pm Organ Donor No 03/06/18 5:54pm Resuscitation Status Full Code 03/06/18 5:54pm Directive Response Recor ded Date/Time Advance Directives No 5:54pm Health Care Power of Casing Worker No 03/06/18 5:54pm Organ Donor No 03/06/18 5:54pm Discharge Instructions Patient Instructions Physician Instructions New, Converted or Re-Newed RX: Transmitted to Pharmacy Goal/Follow Up Appt: You have a followup appt with Dr King on June 04 @ 920 AM You will then continue to see Jazmin Cabral after this appt Return to The Hospital For: Increase in pain Shortness of breath Chest pain Unable to tolerate antibioitics Discharge Diet: No Restrictions Activity as Tolerated: Yes Care Plan Goal:: You have a followup appt with Dr King on June 04 @ 920 AMYou will then continue to see Jazmin Cabral after this appt No hospital discharge instruction information available.No hospital discharge i nstruction information available.No hospital discharge instruction information a vailable.No hospital discharge instruction information available. Additional Source Comments This clinical document has been generated using [employer] software that has been certified by the Office of the National Coordinator for Health Information Technology (ONC 15.99.04.3023.Diam.31.00.0.748297) and the National Committee for [employer] (NCQA, as an eMeasure certified technology). FOR RECORDS PERTAINING TO PATIENTS WHO ARE OR HAVE BEEN ENROLLED IN A CHEMICAL D EPENDENCY/SUBSTANCE ABUSE PROGRAM, SOME INFORMATION MAY BE OMITTED. This clinica l summary was aggregated from multiple sources. Caution should be exercised in using it in the provision of clinical care. This summary normalizes information from multiple sources, and as a consequence, information in this document may ma terially change the coding, format and clinical context of patient data. In ramón tion, data may be omitted in some cases. CLINICAL DECISIONS SHOULD BE BASED ON T HE PRIMARY CLINICAL RECORDS. [facility] [employer] [facility]. provides no warranty or guara ntee of the accuracy or completeness of information in this document.The followi information is based on time limited clinical information
--- OUTSIDE RECORDS SUMMARY | 2020-02-05 10:56 | XMS REPORT ---
Author Author Jelani BHANDARI Organization [facility] Address [address] [place] [address] Care Team Providers Care General Internal Medicine Physician Name Role Phone BÁRBARA BHANDARI Unavailable PROBLEMS Type Condition ICD9-CM Code EHR95-GS Code Onset Dates Condition S tatus SNOMED Code Problem Anger R45.4 Active 74758022 Problem Hx of cervical spine surgery Z98.89 A ctive 234432386 Problem Erectile dysfunction, unspecified erectile dysfunction typ e N52.9 Active 778232488 Problem Low back pain M54.5 Active 306137 005 Problem Pain in right foot M79.671 Active 4 8646780 Problem Essential hypertension I10 Active 49333433 Problem Idiopathic peripheral neuropathy G60.9 Active 55460140 Problem Pain in right knee M25.561 Active 3 [id number] Problem Pure hypercholesterolemia E78.00 Acti ve 125019669 Problem 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 Active 940435798 Problem Marijuana abuse F12.10 Active 3734 4009 Problem Cannabis dependence, uncomplicated F12.20 Active 00640396 Problem Other stimulant dependence, 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 Active 679129399 Problem Gastroesophageal reflux disease with esophagitis K 21.0 Active 317808908 Problem Drug-induced erectile dysfunction N52.2 Active 594602491 Problem Psychophysiological insomnia F51.04 A ctive 538225888 Problem Candidal dermatitis B37.2 Active 07590512 Problem Wheezing R06.2 Active 82319773 Problem Mood disorder F39 Active 595720 05 Problem Other chronic pain G89.29 Active 8 0345804 Problem Chronic maxillary sinusitis J32.0 Ac tive 75566655 Problem Anxiety disorder, unspecified F41.9 Active 468635794 Problem Chronic fatigue R53.82 Active 8422 9001 Problem Mixed hyperlipidemia E78.2 Active 127330188 Problem Unspecified mood [affective] disorder F39 Active 300182809 Problem Primary osteoarthritis of left hip M16.12 Active 901228844 Problem Anxiety F41.9 Active 20731479 Problem Polydipsia R63.1 Active 50297585 Problem Acute left-sided low back pain with left-sided sciatica M54.42 Active 772325667 ALLERGIES No Information ENCOUNTERS Encounter Location Date Diagnosis [place] [address] [address] Jan, Encounter for immunization Z23 [place] [address] [address] 20 Jan, 2020 Elevated liver enzymes R74.8 [place] [address] [address] Jan, Pain of upper abdomen R10.10 [place] [address] [address] Jan, [place] [address] [address] Jan, Acute right-sided low back pain without sciatica M54.5 ; Flank pain R10.9 ; Liver enzyme elevation R74.8 ; Other chronic pain G89.29 ; Pain in right knee M25.561 ; Chronic fatigue R53.82 and Erectile dysfunction, unspecified erectile dysfunction type N52.9 [facility] [address] [facility] [id number] [address] [place] [address] Jan, Pain of upper abdomen R10.10 [facility] [address] [address] 24 Dec, 2019 [facility] [address] [address] 18 Dec, 2019 [facility] [address] [address] Dec, [place] [address] [address] 10 Dec, 2019 Pain in right knee M25.561 ; Mixed hyper lipidemia E78.2 ; Unspecified mood [affective] disorder F39 ; Essential hypertension I10 and Encounter for immunization Z23 [place] [address] [place] [address] Dec, [facility] [address] [facility] [id number] [address] [place] [address] Dec, Acute pain of right knee M25 .561 [facility] [address] [address] Oct, Pre-procedural laboratory examination Z0 1.812 [facility] [address] [address] Oct, Chronic maxillary sinusitis J32.0 [facility] [address] [address] Oct, Sinus disease J34.9 [facility] [address] [address] Oct, [facility] [address] [address] Oct, Acute left-sided low back pain with left -sided sciatica M54.42 and Closed fracture of nasal bone with routine healing, subsequent encounter S02.2XXD [place] [address] [address] Sep, [facility] [address] [address] Aug, Encounter for immunization Z23 and Nasal pain J34.89 [facility] [address] [address] Jul, Separation of left acromioclavicular marco nt, initial encounter S43.102A [facility] [address] [address] March, [facility] [address] [address] March, Essential hypertension I10 [facility] [address] [address] March, [facility] [address] [address] Feb, [place] [address] [address] Feb, [place] [address] [address] Feb, [place] [address] [address] Feb, Prediabetes R73.03 [place] [address] [address] Jan, [place] [address] [address] Jan, [place] [address] [address] 13 Jan, 2019 Polydipsia R63.1 ; Peripheral edema R60. 9 ; Pre-diabetes R73.03 and Tongue lesion K14.8 [place] [address] [address] Sep, Other chronic pain G89.29 [place] [address] [address] Sep, Acute low back pain, unspecified back pa in laterality, with sciatica presence unspecified M54.5 [place] [address] [address] Sep, Low vitamin D level R79.89 [place] [address] [address] Aug, Acute low back pain, unspecified back pa in laterality, with sciatica presence unspecified M54.5 and Primary osteoarthritis of left hip M16.12 [place] [address] [address] Aug, [place] [address] [address] Jun, [place] [address] [address] Jun, Other chronic pain G89.29 and Pain in ri ght knee M25.561 [facility] [address] [address] May, Primary osteoarthritis of left hip M16.1 2 ; Pain in left hip M25.552 ; Other acute postprocedural pain G89.18 and Anxiety F41.9 [place] [address] [address] May, [place] [address] [address] Apr, Pain in right knee M25.561 and Mood diso rder F39 [place] [address] [address] Apr, [facility] [address] [id number] March, [facility] [address] [id number] March, Encounter for dental exam and cleaning w /o abnormal findings Z01.20 [facility] [address] [id number] March, Dental examination Z01.20 [facility] [address] [id number] March, Dental examination Z01.20 [place] [address] [address] March, [facility] [address] [address] March, [place] [address] [address] Feb, [place] [address] [address] Feb, Primary osteoarthritis of left hip M16.1 2 [place] [address] [address] Feb, Other chronic pain G89.29 and Pain in le ft hip M25.552 [place] [address] [address] Feb, Acute pain of left hip M25.552 [place] [address] [address] Feb, Mood disorder F39 and Pain in right knee M25.561 [place] [address] [address] Jan, Other chronic pain G89.29 [place] [address] [address] Jan, Mood disorder F39 [place] [address] [address] Jan, Pain in right knee M25.561 [place] [address] [address] Jan, Pain in left hip M25.552 and Other chron ic pain G89.29 [place] [address] [address] Jan, Acute pain of left hip M25.552 [place] [address] [address] Jan, Acute pain of left hip M25.552 [place] [address] [address] Jan, Mood disorder F39 and Acute pain of left hip M25.552 [place] [address] [address] Nov, Mood disorder F39 [place] [address] [address] Oct, Essential hypertension I10 ; Mixed hyper lipidemia E78.2 and Low back pain M54.5 [facility] [id number] [place] [id number] May, [place] [address] [address] Apr, Essential hypertension I10 ; Anger R45.4 ; Mixed hyperlipidemia E78.2 ; Drug-induced erectile dysfunction N52.2 ; Gastroesophageal reflux disease with esophagitis K21.0 ; Pure hypercholesterolemia E78.00 ; Pain in right knee M25.561 ; Psychophysiological insomnia F51.04 and Wheezing R06.2 [place] [address] [address] March, Hx of cervical spine surgery Z98.89 [place] [address] [address] March, [place] [address] [address] Feb, Anxiety associated with depression F41.8 [place] [address] [address] Jan, Anxiety associated with depression F41.8 [place] [address] [address] Dec, [place] [address] [address] Dec, [place] [address] [address] Dec, Essential hypertension I10 ; Erectile dy sfunction, unspecified erectile dysfunction type N52.9 and Hyperlipemia E78.5 [place] [address] [address] Nov, Essential hypertension I10 ; Hx of cervi pierre spine surgery Z98.89 ; Erectile dysfunction, unspecified erectile dysfunction type N52.9 ; Idiopathic peripheral neuropathy G60.9 ; Anger R45.4 ; Anxiety associated with depression F41.8 ; Hyperlipemia E78.5 ; Wheezing R06.2 and Has daytime drowsiness R40.0 [place] [address] [address] Nov, [place] [address] [address] Nov, [facility] [address] [address] Sep, [facility] [address] [address] Sep, Acute midline low back pain without scia peace M54.5 [place] [address] [address] Sep, Acute bilateral low back pain without sc iatica M54.5 [place] [address] [address] Aug, [place] [address] [address] Jun, Wheezing R06.2 ; Candidal dermatitis B37 .2 ; Essential hypertension I10 ; Erectile dysfunction, unspecified erectile dysfunction type N52.9 ; Idiopathic peripheral neuropathy G60.9 ; Mixed hyperlipidemia E78.2 and Other stimulant dependence, 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 [place] [address] [address] March, Essential hypertension I10 ; Hx of cervi pierre spine surgery Z98.89 ; Idiopathic peripheral neuropathy G60.9 ; Mixed hyperlipidemia E78.2 ; Anger R45.4 ; Drug-induced erectile dysfunction N52.2 and Gastroesophageal reflux disease with esophagitis K21.0 [place] [address] [address] Feb, [place] [address] [address] Dec, Low back pain M54.5 [place] [address] [address] Dec, [place] [address] [address] Dec, Unspecified mood [affective] disorder F3 9 ; Anxiety disorder, unspecified F41.9 ; Other stimulant dependence, 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 and Cannabis dependence, uncomplicated F12.[address] [address] Dec, Essential hypertension I10 ; Hyperlipemi a E78.5 ; Erectile dysfunction, unspecified erectile dysfunction type N52.9 ; Anger R45.4 ; Mixed hyperlipidemia E78.2 ; Anxiety associated with depression F41.8 ; Elevated serum creatinine R79.89 ; 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 and Marijuana abuse F12.[address] [address] Oct, Essential hypertension I10 ; Idiopathic peripheral neuropathy G60.9 ; Low back pain M54.5 ; Hx of cervical spine surgery Z98.89 ; Erectile dysfunction, unspecified erectile dysfunction type N52.9 ; Anger R45.4 ; Mixed hyperlipidemia E78.2 and Anxiety associated with depression F41.[address] [address] Oct, Unspecified mood [affective] disorder F3 9 and Anxiety disorder, unspecified F41.[address] [address] Oct, Hyperlipemia E78.[address] [address] Oct, Essential hypertension I10 [address] [address] Oct, [address] [address] Oct, Essential hypertension I10 ; Idiopathic peripheral neuropathy G60.9 ; Low back pain M54.5 ; Hx of cervical spine surgery Z98.89 ; Pain in right hand M79.641 ; Pain of left hand M79.642 ; Pain in left foot M79.672 ; Pain in right foot M79.671 ; Erectile dysfunction, unspecified erectile dysfunction type N52.9 and Anger R45.[address] [address] Sep, [facility] [address] [id number] [place] [address] Jul, [facility] [address] [id number] [place] [address] Jun, [facility] [address] [id number] [place] [address] May, [facility] [address] [id number] [place] [address] Apr, [facility] [address] [id number] [place] [address] March, [facility] [address] [id number] [place] [address] Feb, [facility] [address] [id number] [place] [address] Feb, [facility] [address] [id number] [place] [address] Jan, [facility] [address] [id number] [place] [address] Jan, [facility] [address] [id number] [place] [address] Nov, [facility] [address] [id number] [place] [address] Nov, [facility] [address] [place] [id number] [place] [address] Nov, [facility] [address] [id number] [place] [address] Nov, [facility] [address] [place] [id number] [place] [address] Nov, [facility] [address] [id number] [place] [address] Nov, [facility] [address] [id number] [place] [address] Oct, [facility] [address] [id number] [place] [address] Oct, [facility] [address] [id number] [place] [address] Oct, [facility] [address] [id number] [place] [address] Oct, [facility] [address] [id number] [place] [address] Sep, [facility] [address] [id number] [place] [address] Sep, [facility] [address] [id number] [place] [address] Sep, [facility] [address] [id number] [place] [address] Sep, [facility] [address] [id number] [place] [address] Sep, [facility] [address] [id number] [place] [address] 16 Aug, 2014 [facility] [address] [id number] [place] [address] 16 Aug, 2014 [facility] [address] [id number] [place] [address] 15 Aug, 2014 [facility] [address] [id number] [place] [address] 15 Aug, 2014 [facility] [address] [id number] [place] [address] 15 Aug, 2014 [facility] [address] [id number] [place] [address] 15 Aug, 2014 [facility] [address] [id number] [place] [address] 13 Aug, 2014 [facility] [address] [id number] [place] [address] 07 Aug, 2014 [facility] [address] [id number] [place] [address] Aug, [facility] [address] [facility] [id number] [place] [address] Aug, [facility] [address] [facility] [id number] [place] [address] Aug, [facility] [address] [id number] [place] [address] Jul, [facility] [address] [id number] [place] [address] Jul, [facility] [address] [facility] [id number] [place] [address] Jul, [facility] [address] [id number] [place] [address] Jul, [facility] [address] [id number] [place] [address] Jun, [facility] [address] [id number] [place] [address] Jun, [facility] [address] [id number] [place] [address] Jun, [facility] [address] [id number] [place] [address] Jun, [facility] [address] [id number] [place] [address] Jun, [facility] [address] [id number] [place] [address] Jun, [facility] [address] [id number] [place] [address] May, [facility] [address] [id number] [place] [address] May, [facility] [address] [id number] [place] [address] May, [facility] [address] [id number] [place] [address] May, [facility] [address] [facility] [id number] [place] [id number] May, [facility] [address] [facility] [id number] [facility] [address] May, [facility] [address] [facility] [id number] [place] [address] May, [facility] [address] [id number] [place] [address] May, [facility] [address] [id number] [place] [address] May, [facility] [address] [facility] [id number] [facility] [address] May, [facility] [address] [id number] [place] [address] May, [facility] [address] [id number] [facility] [address] May, [facility] [address] [id number] [place] [address] Apr, [facility] [address] [id number] [place] [address] Apr, [facility] [address] [id number] [place] [address] March, [facility] [address] [id number] [place] [address] March, [facility] [address] [id number] [place] [address] March, [facility] [address] [facility] [id number] [place] [address] March, [facility] [address] [id number] [place] [address] Feb, [facility] [address] [id number] [place] [address] Feb, [facility] [address] [id number] [place] [address] Jan, [facility] [address] [id number] [place] [address] Jan, [facility] [address] [id number] [place] [address] Jan, [facility] [address] [id number] [place] [address] Jan, [facility] [address] [id number] [place] [address] Dec, [facility] [address] [id number] [place] [address] Dec, [facility] [address] [id number] [place] [address] Nov, [facility] [address] [id number] [place] [address] Nov, [facility] [address] [id number] [place] [address] Nov, [facility] [address] [id number] [place] [address] Nov, [facility] [address] [id number] [place] [address] Oct, [facility] [address] [id number] [place] [address] Oct, [facility] [address] [id number] [place] [address] Sep, [facility] [address] [id number] [place] [address] 14 Sep, 2013 [facility] [address] [id number] [place] [address] 26 Jul, 2013 [facility] [address] [id number] [place] [address] 19 Jul, 2013 [facility] [address] [id number] [place] [address] Jul, [facility] [address] [id number] [place] [address] Jun, [facility] [address] [id number] [place] [address] Jun, [facility] [address] [id number] [place] [address] May, [facility] [address] [id number] [place] [address] May, [facility] [address] [id number] [place] [address] May, [facility] [address] [facility] [id number] [place] [address] March, [facility] [address] [id number] [place] [address] Jan, [facility] [address] [id number] [place] [address] Jan, [facility] [address] [id number] [place] [address] Jan, [facility] [address] [id number] [place] [address] Dec, [facility] [address] [id number] [place] [address] May, [facility] [address] [id number] [place] [address] March, [facility] [address] [id number] [place] [address] Jan, [facility] [address] [id number] [place] [address] 14 Aug, 2011 [facility] [address] [id number] [place] [address] Aug, [facility] [address] [id number] [place] [address] Aug, [facility] [address] [id number] [place] [address] Jun, [facility] [address] [id number] [place] [address] May, [facility] [address] [facility] [id number] [place] [address] Oct, IMMUNIZATIONS No Known Immunizations SOCIAL HISTORY Never Assessed REASON FOR VISIT PLAN OF CARE VITAL SIGNS MEDICATIONS Unknown Medications RESULTS No Results PROCEDURES No Known procedures INSTRUCTIONS MEDICATIONS ADMINISTERED No Known Medications MEDICAL (GENERAL) HISTORY Type Description Date Medical History Hypertension Medical History Arthritis Medical History Dermatophytosis of nail Medical History Unspecified hemorrhoids without mention of complication Medical History Hallux rigidus Medical History Hallux valgus (acquired) Medical History neuropathy Surgical History spinal stenosis 2013 Surgical History left hip replacement 04/2018 Hospitalization History surgery Hospitalization History left axilla abcess, hypokalemia-[facility] 05/29/17
--- OUTSIDE RECORDS SUMMARY | 2020-02-05 10:56 | XMS REPORT ---
Author Author Jelani BHANDARI Organization [facility] Address [address] [place] [address] Care Team Providers Care Supervisor Dehydrogenation Name Role Phone BÁRBARA BHANDARI Unavailable PROBLEMS Type Condition ICD9-CM Code [id number] Code Onset Dates Condition S tatus SNOMED Code Problem Erectile dysfunction, unspecified erectile dysfunction typ e N52.9 Active 013933357 Problem Anger R45.4 Active 32109624 Problem Pain in right foot M79.671 Active 4 9354988 Problem Hx of cervical spine surgery Z98.89 A ctive 244581837 Problem Idiopathic peripheral neuropathy G60.9 Active 94750279 Problem Low back pain M54.5 Active 935549 005 Problem Pure hypercholesterolemia E78.00 Acti ve 335020362 Problem Psychophysiological insomnia F51.04 A ctive 281423634 Problem 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 Active 085931565 Problem Unspecified mood [affective] disorder F39 Active 957402330 Problem Other stimulant dependence, 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 Active 720265878 Problem Marijuana abuse F12.10 Active 3734 4009 Problem Drug-induced erectile dysfunction N52.2 Active 521492844 Problem Cannabis dependence, uncomplicated F12.20 Active 01416042 Problem Candidal dermatitis B37.2 Active 69524666 Problem Gastroesophageal reflux disease with esophagitis K 21.0 Active 254230971 Problem Pain in right knee M25.561 Active 3 [id number] Problem Wheezing R06.2 Active 93673928 Problem Mood disorder F39 Active 394348 05 Problem Acute left-sided low back pain with left-sided sciatica M54.42 Active 892732423 Problem Mixed hyperlipidemia E78.2 Active 608531414 Problem Chronic maxillary sinusitis J32.0 Ac tive 46869848 Problem Essential hypertension I10 Active 97213625 Problem Anxiety disorder, unspecified F41.9 Active 335152419 Problem Other chronic pain G89.29 Active 8 5380397 Problem Primary osteoarthritis of left hip M16.12 Active 418220115 Problem Anxiety F41.9 Active 25059800 Problem Polydipsia R63.1 Active 60797431 ALLERGIES No Information ENCOUNTERS Encounter Location Date Diagnosis [place] [address] [address] Dec, [facility] [address] [address] 18 Dec, 2019 [facility] [address] [address] Dec, [place] [address] [address] Dec, Pain in right knee M25.561 ; Mixed hyper lipidemia E78.2 ; Unspecified mood [affective] disorder F39 ; Essential hypertension I10 and Encounter for immunization Z23 [place] [address] [address] Dec, [facility] [address] [facility] [id number] [place] [address] Dec, Acute pain of right knee M25 .561 [place] [address] [address] Oct, Pre-procedural laboratory examination Z0 1.812 [place] [address] [address] Oct, Chronic maxillary sinusitis J32.0 [place] [address] [address] Oct, Sinus disease J34.9 [place] [address] [address] Oct, [place] [address] [address] Oct, Acute left-sided low back pain with left -sided sciatica M54.42 and Closed fracture of nasal bone with routine healing, subsequent encounter S02.2XXD [place] [address] [address] Sep, [facility] [address] [address] Aug, Encounter for immunization Z23 and Nasal pain J34.89 [facility] [address] [address] 24 Jul, 2019 Separation of left acromioclavicular marco nt, initial encounter S43.102A [place] [address] [address] March, [facility] [address] [address] March, Essential hypertension I10 [place] [address] [address] March, [facility] [address] [address] Feb, [facility] [address] [address] Feb, [facility] [address] [address] Feb, [place] [address] [address] 15 Feb, 2019 Prediabetes R73.03 [place] [address] [address] Jan, [facility] [address] [address] Jan, [facility] [address] [address] 13 Jan, 2019 Polydipsia R63.1 ; Peripheral edema R60. 9 ; Pre-diabetes R73.03 and Tongue lesion K14.8 [facility] [address] [address] Sep, Other chronic pain G89.29 [facility] [address] [address] Sep, Acute low back pain, unspecified back pa in laterality, with sciatica presence unspecified M54.5 [place] [address] [address] Sep, Low vitamin D level R79.89 [place] [address] [address] Aug, Acute low back pain, unspecified back pa in laterality, with sciatica presence unspecified M54.5 and Primary osteoarthritis of left hip M16.12 [place] [address] [address] Aug, [place] [address] [address] Jun, [place] [address] [address] Jun, Other chronic pain G89.29 and Pain in ri ght knee M25.561 [place] [address] [address] May, Primary osteoarthritis of left hip M16.1 2 ; Pain in left hip M25.552 ; Other acute postprocedural pain G89.18 and Anxiety F41.9 [place] [address] [address] May, [place] [address] [address] Apr, Pain in right knee M25.561 and Mood diso rder F39 [place] [address] [address] Apr, [facility] [address] [id number] March, [facility] [address] [id number] March, Encounter for dental exam and cleaning w /o abnormal findings Z01.20 [facility] [address] [place] [id number] March, Dental examination Z01.20 [facility] [address] [id number] March, Dental examination Z01.20 [facility] [address] [address] March, [facility] [address] [address] March, [facility] [address] [address] Feb, [facility] [address] [address] Feb, Primary osteoarthritis of left hip M16.1 2 [facility] [address] [address] Feb, Other chronic pain G89.29 and Pain in le ft hip M25.552 [facility] [address] [address] Feb, Acute pain of left hip M25.552 [facility] [address] [address] Feb, Mood disorder F39 and Pain in right knee M25.561 [facility] [address] [address] Jan, Other chronic pain G89.29 [facility] [address] [address] Jan, Mood disorder F39 [facility] [address] [address] Jan, Pain in right knee M25.561 [facility] [address] [address] Jan, Pain in left hip M25.552 and Other chron ic pain G89.29 [facility] [address] [address] Jan, Acute pain of left hip M25.552 [facility] [address] [address] Jan, Acute pain of left hip M25.552 [facility] [address] [address] 08 Jan, 2018 Mood disorder F39 and Acute pain of left hip M25.552 [place] [address] [address] Nov, Mood disorder F39 [place] [address] [address] Oct, Essential hypertension I10 ; Mixed hyper lipidemia E78.2 and Low back pain M54.5 [place] [address] [place] [id number] [place] [id number] May, [place] [address] [address] Apr, Essential hypertension I10 ; Anger R45.4 ; Mixed hyperlipidemia E78.2 ; Drug-induced erectile dysfunction N52.2 ; Gastroesophageal reflux disease with esophagitis K21.0 ; Pure hypercholesterolemia E78.00 ; Pain in right knee M25.561 ; Psychophysiological insomnia F51.04 and Wheezing R06.2 [place] [address] [address] March, Hx of cervical spine surgery Z98.89 [place] [address] [address] March, [place] [address] [address] Feb, Anxiety associated with depression F41.8 [place] [address] [address] Jan, Anxiety associated with depression F41.8 [place] [address] [address] Dec, [place] [address] [address] Dec, [place] [address] [address] Dec, Essential hypertension I10 ; Erectile dy sfunction, unspecified erectile dysfunction type N52.9 and Hyperlipemia E78.5 [place] [address] [address] Nov, Essential hypertension I10 ; Hx of cervi pierre spine surgery Z98.89 ; Erectile dysfunction, unspecified erectile dysfunction type N52.9 ; Idiopathic peripheral neuropathy G60.9 ; Anger R45.4 ; Anxiety associated with depression F41.8 ; Hyperlipemia E78.5 ; Wheezing R06.2 and Has daytime drowsiness R40.0 [place] [address] [address] Nov, [place] [address] [address] Nov, [place] [address] [address] Sep, [place] [address] [address] Sep, Acute midline low back pain without scia peace M54.5 [place] [address] [address] Sep, Acute bilateral low back pain without sc iatica M54.5 [place] [address] [address] Aug, [place] [address] [address] Jun, Wheezing R06.2 ; Candidal dermatitis B37 .2 ; Essential hypertension I10 ; Erectile dysfunction, unspecified erectile dysfunction type N52.9 ; Idiopathic peripheral neuropathy G60.9 ; Mixed hyperlipidemia E78.2 and Other stimulant dependence, 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 [place] [address] [address] March, Essential hypertension I10 ; Hx of cervi pierre spine surgery Z98.89 ; Idiopathic peripheral neuropathy G60.9 ; Mixed hyperlipidemia E78.2 ; Anger R45.4 ; Drug-induced erectile dysfunction N52.2 and Gastroesophageal reflux disease with esophagitis K21.0 [place] [address] [address] Feb, [place] [address] [place] [address] Dec, Low back pain M54.[address] [address] Dec, [address] [address] Dec, Unspecified mood [affective] disorder F3 9 ; Anxiety disorder, unspecified F41.9 ; Other stimulant dependence, 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 and Cannabis dependence, uncomplicated F12.[address] [address] Dec, Essential hypertension I10 ; Hyperlipemi a E78.5 ; Erectile dysfunction, unspecified erectile dysfunction type N52.9 ; Anger R45.4 ; Mixed hyperlipidemia E78.2 ; Anxiety associated with depression F41.8 ; Elevated serum creatinine R79.89 ; 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 and Marijuana abuse F12.[address] [address] Oct, Essential hypertension I10 ; Idiopathic peripheral neuropathy G60.9 ; Low back pain M54.5 ; Hx of cervical spine surgery Z98.89 ; Erectile dysfunction, unspecified erectile dysfunction type N52.9 ; Anger R45.4 ; Mixed hyperlipidemia E78.2 and Anxiety associated with depression F41.8 [place] [address] [address] Oct, Unspecified mood [affective] disorder F3 9 and Anxiety disorder, unspecified F41.9 [place] [id number] Oct, Hyperlipemia E78.5 [facility] [address] [address] Oct, Essential hypertension I10 [facility] [address] [address] Oct, [facility] [address] [address] Oct, Essential hypertension I10 ; Idiopathic peripheral neuropathy G60.9 ; Low back pain M54.5 ; Hx of cervical spine surgery Z98.89 ; Pain in right hand M79.641 ; Pain of left hand M79.642 ; Pain in left foot M79.672 ; Pain in right foot M79.671 ; Erectile dysfunction, unspecified erectile dysfunction type N52.9 and Anger R45.4 [facility] [address] [address] Sep, [facility] [address] [address] Jul, [facility] [address] [address] Jun, [facility] [address] [address] May, [facility] [address] [address] Apr, [facility] [address] [address] March, [facility] [address] [address] Feb, [facility] [address] [address] Feb, [facility] [address] [address] Jan, [facility] [address] [address] Jan, [facility] [address] [id number] [place] [address] Nov, [facility] [address] [id number] [place] [address] Nov, [facility] [address] [id number] [place] [address] Nov, [facility] [address] [id number] [place] [address] Nov, [facility] [address] [id number] [place] [address] Nov, [facility] [address] [id number] [place] [address] Nov, [facility] [address] [id number] [place] [address] Oct, [facility] [address] [id number] [place] [address] Oct, [facility] [address] [id number] [place] [address] Oct, [facility] [address] [id number] [place] [address] Oct, [facility] [address] [id number] [place] [address] Sep, [facility] [address] [id number] [place] [address] Sep, [facility] [address] [id number] [place] [address] Sep, [facility] [address] [id number] [place] [address] Sep, [facility] [address] [place] [id number] [place] [address] Sep, [facility] [address] [id number] [place] [address] Aug, [facility] [address] [id number] [place] [address] 16 Aug, 2014 [facility] [address] [facility] [id number] [place] [address] 15 Aug, 2014 [facility] [address] [facility] [id number] [place] [address] 15 Aug, 2014 [facility] [address] [id number] [place] [address] 15 Aug, 2014 [facility] [address] [facility] [id number] [place] [address] 15 Aug, 2014 [facility] [address] [facility] [id number] [place] [address] 13 Aug, 2014 [facility] [address] [id number] [place] [address] 07 Aug, 2014 [facility] [address] [id number] [place] [address] 07 Aug, 2014 [facility] [address] [id number] [place] [address] 06 Aug, 2014 [facility] [address] [facility] [id number] [place] [address] 06 Aug, 2014 [facility] [address] [id number] [place] [address] 19 Jul, 2014 [facility] [address] [id number] [place] [address] 19 Jul, 2013 [facility] [address] [id number] [place] [address] 18 Jul, 2013 [facility] [address] [facility] [id number] [place] [address] 18 Jul, 2013 [facility] [address] [id number] [place] [address] Jun, [facility] [address] [id number] [place] [address] Jun, [facility] [address] [id number] [place] [address] Jun, 2013 [facility] [address] [id number] [facility] [place] [address] Jun, 2013 [facility] [address] [facility] [id number] [facility] [place] [address] Jun, [facility] [address] [facility] [id number] [place] [address] Jun, [facility] [address] [facility] [id number] [facility] [place] [address] May, [facility] [address] [facility] [id number] [place] [address] May, [facility] [address] [facility] [id number] [facility] [place] [address] May, [facility] [address] [facility] [id number] [place] [address] May, [facility] [address] [facility] [id number] [place] [id number] May, [facility] [address] [id number] [place] [address] May, [facility] [address] [facility] [id number] [place] [address] May, [facility] [address] [id number] [place] [address] May, [facility] [address] [id number] [place] [address] May, [facility] [address] [id number] [facility] [place] [address] May, [facility] [address] [facility] [id number] [place] [address] May, [facility] [address] [id number] [place] [address] May, [facility] [address] [id number] [place] [address] Apr, [facility] [address] [id number] [place] [address] Apr, [facility] [address] [id number] [place] [address] March, [facility] [address] [id number] [place] [address] March, [facility] [address] [id number] [place] [address] March, [facility] [address] [id number] [place] [address] March, [facility] [address] [id number] [place] [address] Feb, [facility] [address] [id number] [place] [address] Feb, [facility] [address] [id number] [place] [address] Jan, [facility] [address] [id number] [place] [address] Jan, [facility] [address] [id number] [place] [address] Jan, [facility] [address] [id number] [place] [address] Jan, [facility] [address] [id number] [place] [address] Dec, [facility] [address] [id number] [place] [address] Dec, [facility] [address] [id number] [place] [address] Nov, [facility] [address] [id number] [place] [address] Nov, [facility] [address] [id number] [place] [address] Nov, [facility] [address] [id number] [place] [address] Nov, [facility] [address] [id number] [place] [address] Oct, [facility] [address] [id number] [place] [address] Oct, [facility] [address] [id number] [place] [address] Sep, [facility] [address] [id number] [place] [address] Sep, [facility] [address] [id number] [place] [address] Jul, [facility] [address] [facility] [id number] [place] [address] Jul, [facility] [address] [id number] [place] [address] Jul, [facility] [address] [id number] [place] [address] Jun, [facility] [address] [id number] [place] [address] Jun, [facility] [address] [id number] [place] [address] May, [facility] [address] [id number] [place] [address] May, [facility] [address] [id number] [place] [address] May, [facility] [address] [id number] [place] [address] March, [facility] [address] [id number] [place] [address] Jan, [facility] [address] [id number] [place] [address] Jan, [facility] [address] [id number] [place] [address] Jan, [facility] [address] [id number] [place] [address] Dec, [facility] [address] [id number] [place] [address] 16 May, 2012 [facility] [id number] [place] [address] March, [facility] [id number] [place] [address] Jan, [facility] [address] [address] Aug, [facility] [address] [address] Aug, [facility] [address] [address] Aug, [facility] [address] [address] Jun, [facility] [address] [address] May, [facility] [id number] [place] [address] Oct, IMMUNIZATIONS No Known Immunizations SOCIAL HISTORY [...]
--- OUTSIDE RECORDS SUMMARY | 2020-02-05 10:56 | XMS REPORT ---
Author Author Jelani BHANDARI Organization [facility] Address [address] [place] [address] Care Team Providers Care Copra Sampler Name Role Phone BÁRBARA BHANDARI Unavailable PROBLEMS Type Condition ICD9-CM Code UMR18-YM Code Onset Dates Condition S tatus SNOMED Code Problem Anger R45.4 Active 85388398 Problem Hx of cervical spine surgery Z98.89 A ctive 060304452 Problem Erectile dysfunction, unspecified erectile dysfunction typ e N52.9 Active 927828623 Problem Low back pain M54.5 Active 967483 005 Problem Pain in right foot M79.671 Active 4 0155795 Problem Essential hypertension I10 Active 10494301 Problem Idiopathic peripheral neuropathy G60.9 Active 61130406 Problem Pain in right knee M25.561 Active 3 [id number] Problem Pure hypercholesterolemia E78.00 Acti ve 352330619 Problem 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 Active 144105107 Problem Marijuana abuse F12.10 Active 3734 4009 Problem Cannabis dependence, uncomplicated F12.20 Active 84977901 Problem Other stimulant dependence, 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 Active 849771287 Problem Gastroesophageal reflux disease with esophagitis K 21.0 Active 286294331 Problem Drug-induced erectile dysfunction N52.2 Active 275446860 Problem Psychophysiological insomnia F51.04 A ctive 824699609 Problem Candidal dermatitis B37.2 Active 56504451 Problem Wheezing R06.2 Active 16174805 Problem Mood disorder F39 Active 138136 05 Problem Other chronic pain G89.29 Active 8 6098663 Problem Chronic maxillary sinusitis J32.0 Ac tive 10082737 Problem Anxiety disorder, unspecified F41.9 Active 603104049 Problem Chronic fatigue R53.82 Active 8422 9001 Problem Mixed hyperlipidemia E78.2 Active 860790605 Problem Unspecified mood [affective] disorder F39 Active 299218086 Problem Primary osteoarthritis of left hip M16.12 Active 709865107 Problem Anxiety F41.9 Active 66514173 Problem Polydipsia R63.1 Active 56137151 Problem Acute left-sided low back pain with left-sided sciatica M54.42 Active 896006144 ALLERGIES No Information ENCOUNTERS Encounter Location Date Diagnosis [place] [address] [address] Jan, Encounter for immunization Z23 [place] [address] [address] 20 Jan, 2020 Elevated liver enzymes R74.8 [place] [address] [address] Jan, Pain of upper abdomen R10.10 [place] [address] [address] Jan, [place] [address] [address] Jan, Acute right-sided low back pain without sciatica M54.5 ; Flank pain R10.9 ; Liver enzyme elevation R74.8 ; Other chronic pain G89.29 ; Pain in right knee M25.561 ; Chronic fatigue R53.82 and Erectile dysfunction, unspecified erectile dysfunction type N52.9 [facility] [address] [facility] [id number] [address] [place] [address] Jan, Pain of upper abdomen R10.10 [facility] [address] [address] 24 Dec, 2019 [facility] [address] [address] 18 Dec, 2019 [facility] [address] [address] Dec, [place] [address] [address] 10 Dec, 2019 Pain in right knee M25.561 ; Mixed hyper lipidemia E78.2 ; Unspecified mood [affective] disorder F39 ; Essential hypertension I10 and Encounter for immunization Z23 [place] [address] [place] [address] Dec, [facility] [address] [facility] [id number] [address] [place] [address] Dec, Acute pain of right knee M25 .561 [facility] [address] [address] Oct, Pre-procedural laboratory examination Z0 1.812 [facility] [address] [address] Oct, Chronic maxillary sinusitis J32.0 [facility] [address] [address] Oct, Sinus disease J34.9 [facility] [address] [address] Oct, [facility] [address] [address] Oct, Acute left-sided low back pain with left -sided sciatica M54.42 and Closed fracture of nasal bone with routine healing, subsequent encounter S02.2XXD [place] [address] [address] Sep, [facility] [address] [address] Aug, Encounter for immunization Z23 and Nasal pain J34.89 [facility] [address] [address] Jul, Separation of left acromioclavicular marco nt, initial encounter S43.102A [facility] [address] [address] March, [facility] [address] [address] March, Essential hypertension I10 [facility] [address] [address] March, [facility] [address] [address] Feb, [place] [address] [address] Feb, [place] [address] [address] Feb, [place] [address] [address] Feb, Prediabetes R73.03 [place] [address] [address] Jan, [place] [address] [address] Jan, [place] [address] [address] 13 Jan, 2019 Polydipsia R63.1 ; Peripheral edema R60. 9 ; Pre-diabetes R73.03 and Tongue lesion K14.8 [place] [address] [address] Sep, Other chronic pain G89.29 [place] [address] [address] Sep, Acute low back pain, unspecified back pa in laterality, with sciatica presence unspecified M54.5 [place] [address] [address] Sep, Low vitamin D level R79.89 [place] [address] [address] Aug, Acute low back pain, unspecified back pa in laterality, with sciatica presence unspecified M54.5 and Primary osteoarthritis of left hip M16.12 [place] [address] [address] Aug, [place] [address] [address] Jun, [place] [address] [address] Jun, Other chronic pain G89.29 and Pain in ri ght knee M25.561 [facility] [address] [address] May, Primary osteoarthritis of left hip M16.1 2 ; Pain in left hip M25.552 ; Other acute postprocedural pain G89.18 and Anxiety F41.9 [place] [address] [address] May, [place] [address] [address] Apr, Pain in right knee M25.561 and Mood diso rder F39 [place] [address] [address] Apr, [facility] [address] [id number] March, [facility] [address] [id number] March, Encounter for dental exam and cleaning w /o abnormal findings Z01.20 [facility] [address] [id number] March, Dental examination Z01.20 [facility] [address] [id number] March, Dental examination Z01.20 [place] [address] [address] March, [facility] [address] [address] March, [place] [address] [address] Feb, [place] [address] [address] Feb, Primary osteoarthritis of left hip M16.1 2 [place] [address] [address] Feb, Other chronic pain G89.29 and Pain in le ft hip M25.552 [place] [address] [address] Feb, Acute pain of left hip M25.552 [place] [address] [address] Feb, Mood disorder F39 and Pain in right knee M25.561 [place] [address] [address] Jan, Other chronic pain G89.29 [place] [address] [address] Jan, Mood disorder F39 [place] [address] [address] Jan, Pain in right knee M25.561 [place] [address] [address] Jan, Pain in left hip M25.552 and Other chron ic pain G89.29 [place] [address] [address] Jan, Acute pain of left hip M25.552 [place] [address] [address] Jan, Acute pain of left hip M25.552 [place] [address] [address] Jan, Mood disorder F39 and Acute pain of left hip M25.552 [place] [address] [address] Nov, Mood disorder F39 [place] [address] [address] Oct, Essential hypertension I10 ; Mixed hyper lipidemia E78.2 and Low back pain M54.5 [facility] [address] [place] [id number] [id number] May, [place] [address] [address] Apr, Essential hypertension I10 ; Anger R45.4 ; Mixed hyperlipidemia E78.2 ; Drug-induced erectile dysfunction N52.2 ; Gastroesophageal reflux disease with esophagitis K21.0 ; Pure hypercholesterolemia E78.00 ; Pain in right knee M25.561 ; Psychophysiological insomnia F51.04 and Wheezing R06.2 [place] [address] [address] March, Hx of cervical spine surgery Z98.89 [place] [address] [address] March, [place] [address] [address] Feb, Anxiety associated with depression F41.8 [place] [address] [address] Jan, Anxiety associated with depression F41.8 [place] [address] [address] Dec, [place] [address] [address] Dec, [place] [address] [address] Dec, Essential hypertension I10 ; Erectile dy sfunction, unspecified erectile dysfunction type N52.9 and Hyperlipemia E78.5 [place] [address] [address] Nov, Essential hypertension I10 ; Hx of cervi pierre spine surgery Z98.89 ; Erectile dysfunction, unspecified erectile dysfunction type N52.9 ; Idiopathic peripheral neuropathy G60.9 ; Anger R45.4 ; Anxiety associated with depression F41.8 ; Hyperlipemia E78.5 ; Wheezing R06.2 and Has daytime drowsiness R40.0 [place] [address] [address] Nov, [place] [address] [address] Nov, [facility] [address] [address] Sep, [facility] [address] [address] Sep, Acute midline low back pain without scia peace M54.5 [place] [address] [address] Sep, Acute bilateral low back pain without sc iatica M54.5 [place] [address] [address] Aug, [place] [address] [address] Jun, Wheezing R06.2 ; Candidal dermatitis B37 .2 ; Essential hypertension I10 ; Erectile dysfunction, unspecified erectile dysfunction type N52.9 ; Idiopathic peripheral neuropathy G60.9 ; Mixed hyperlipidemia E78.2 and Other stimulant dependence, 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 [place] [address] [address] March, Essential hypertension I10 ; Hx of cervi pierre spine surgery Z98.89 ; Idiopathic peripheral neuropathy G60.9 ; Mixed hyperlipidemia E78.2 ; Anger R45.4 ; Drug-induced erectile dysfunction N52.2 and Gastroesophageal reflux disease with esophagitis K21.0 [place] [address] [address] Feb, [place] [address] [address] Dec, Low back pain M54.5 [place] [address] [address] Dec, [place] [address] [address] Dec, Unspecified mood [affective] disorder F3 9 ; Anxiety disorder, unspecified F41.9 ; Other stimulant dependence, 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 and Cannabis dependence, uncomplicated F12.[address] [address] Dec, Essential hypertension I10 ; Hyperlipemi a E78.5 ; Erectile dysfunction, unspecified erectile dysfunction type N52.9 ; Anger R45.4 ; Mixed hyperlipidemia E78.2 ; Anxiety associated with depression F41.8 ; Elevated serum creatinine R79.89 ; 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 and Marijuana abuse F12.[address] [address] Oct, Essential hypertension I10 ; Idiopathic peripheral neuropathy G60.9 ; Low back pain M54.5 ; Hx of cervical spine surgery Z98.89 ; Erectile dysfunction, unspecified erectile dysfunction type N52.9 ; Anger R45.4 ; Mixed hyperlipidemia E78.2 and Anxiety associated with depression F41.[address] [address] Oct, Unspecified mood [affective] disorder F3 9 and Anxiety disorder, unspecified F41.[address] [address] Oct, Hyperlipemia E78.[address] [address] Oct, Essential hypertension I10 [address] [address] Oct, [address] [address] Oct, Essential hypertension I10 ; Idiopathic peripheral neuropathy G60.9 ; Low back pain M54.5 ; Hx of cervical spine surgery Z98.89 ; Pain in right hand M79.641 ; Pain of left hand M79.642 ; Pain in left foot M79.672 ; Pain in right foot M79.671 ; Erectile dysfunction, unspecified erectile dysfunction type N52.9 and Anger R45.[address] [address] Sep, [facility] [address] [id number] [place] [address] Jul, [facility] [address] [id number] [place] [address] Jun, [facility] [address] [id number] [place] [address] May, [facility] [address] [id number] [place] [address] Apr, [facility] [address] [id number] [place] [address] March, [facility] [address] [id number] [place] [address] Feb, [facility] [address] [id number] [place] [address] Feb, [facility] [address] [id number] [place] [address] Jan, [facility] [address] [id number] [place] [address] Jan, [facility] [address] [id number] [place] [address] Nov, [facility] [address] [id number] [place] [address] Nov, [facility] [address] [place] [id number] [place] [address] Nov, [facility] [address] [id number] [place] [address] Nov, [facility] [address] [place] [id number] [place] [address] Nov, [facility] [address] [id number] [place] [address] Nov, [facility] [address] [id number] [place] [address] Oct, [facility] [address] [id number] [place] [address] Oct, [facility] [address] [id number] [place] [address] Oct, [facility] [address] [id number] [place] [address] Oct, [facility] [address] [id number] [place] [address] Sep, [facility] [address] [id number] [place] [address] Sep, [facility] [address] [id number] [place] [address] Sep, [facility] [address] [id number] [place] [address] Sep, [facility] [address] [id number] [place] [address] Sep, [facility] [address] [id number] [place] [address] 16 Aug, 2014 [facility] [address] [id number] [place] [address] 16 Aug, 2014 [facility] [address] [id number] [place] [address] 15 Aug, 2014 [facility] [address] [id number] [place] [address] 15 Aug, 2014 [facility] [address] [id number] [place] [address] 15 Aug, 2014 [facility] [address] [id number] [place] [address] 15 Aug, 2014 [facility] [address] [id number] [place] [address] 13 Aug, 2014 [facility] [address] [id number] [place] [address] 07 Aug, 2014 [facility] [address] [id number] [place] [address] Aug, [facility] [address] [facility] [id number] [place] [address] Aug, [facility] [address] [facility] [id number] [place] [address] Aug, [facility] [address] [id number] [place] [address] Jul, [facility] [address] [id number] [place] [address] Jul, [facility] [address] [facility] [id number] [place] [address] Jul, [facility] [address] [id number] [place] [address] Jul, [facility] [address] [id number] [place] [address] Jun, [facility] [address] [id number] [place] [address] Jun, [facility] [address] [id number] [place] [address] Jun, [facility] [address] [id number] [place] [address] Jun, [facility] [address] [id number] [place] [address] Jun, [facility] [address] [id number] [place] [address] Jun, [facility] [address] [id number] [place] [address] May, [facility] [address] [id number] [place] [address] May, [facility] [address] [id number] [place] [address] May, [facility] [address] [id number] [place] [address] May, [facility] [address] [facility] [id number] [place] [id number] May, [facility] [address] [facility] [id number] [facility] [place] [address] May, [facility] [address] [facility] [id number] [facility] [place] [address] May, [facility] [address] [id number] [facility] [place] [address] May, [facility] [address] [id number] [facility] [place] [address] May, [facility] [address] [facility] [id number] [facility] [place] [address] May, [facility] [address] [id number] [place] [address] May, [facility] [address] [id number] [facility] [place] [place] [address] May, [facility] [address] [id number] [place] [address] Apr, [facility] [address] [id number] [facility] [place] [address] Apr, [facility] [address] [id number] [place] [address] March, [facility] [address] [id number] [place] [address] March, [facility] [address] [id number] [place] [address] March, [facility] [address] [facility] [id number] [facility] [place] [address] March, [facility] [address] [id number] [place] [address] Feb, [facility] [address] [id number] [place] [address] Feb, [facility] [address] [id number] [facility] [place] [place] [address] Jan, [facility] [address] [id number] [place] [address] Jan, [facility] [address] [id number] [place] [address] Jan, [facility] [address] [id number] [place] [address] Jan, [facility] [address] [id number] [place] [address] Dec, [facility] [address] [id number] [place] [address] Dec, [facility] [address] [id number] [place] [address] Nov, [facility] [address] [id number] [place] [address] Nov, [facility] [address] [id number] [place] [address] Nov, [facility] [address] [id number] [place] [address] Nov, [facility] [address] [id number] [place] [address] Oct, [facility] [address] [id number] [place] [address] Oct, [facility] [address] [id number] [place] [address] Sep, [facility] [address] [id number] [place] [address] 14 Sep, 2013 [facility] [address] [id number] [place] [address] 26 Jul, 2013 [facility] [address] [id number] [place] [address] 19 Jul, 2013 [facility] [address] [id number] [place] [address] Jul, [facility] [address] [id number] [place] [address] Jun, [facility] [address] [id number] [place] [address] Jun, [facility] [address] [id number] [place] [address] May, [facility] [address] [id number] [place] [address] May, [facility] [address] [id number] [place] [address] May, [facility] [address] [facility] [id number] [place] [address] March, [facility] [address] [id number] [place] [address] Jan, [facility] [address] [id number] [place] [address] Jan, [facility] [address] [id number] [place] [address] Jan, [facility] [address] [id number] [place] [address] Dec, [facility] [address] [id number] [place] [address] May, [facility] [address] [id number] [place] [address] March, [facility] [address] [id number] [place] [address] Jan, [facility] [address] [id number] [place] [address] 14 Aug, 2011 [facility] [address] [id number] [place] [address] Aug, [facility] [address] [id number] [place] [address] Aug, [facility] [address] [id number] [place] [address] Jun, [facility] [address] [id number] [place] [address] May, [facility] [address] [facility] [id number] [place] [address] Oct, IMMUNIZATIONS No Known Immunizations SOCIAL HISTORY [...]
--- OUTSIDE RECORDS SUMMARY | 2020-02-05 10:57 | XMS REPORT ---
Author Author Jelani Arambula Doctor Organization [facility] Address Unknown Phone Unavailable Care Team Providers Care Youth Care Specialist Name Role Phone Migration, Doctor Unavailable Unavailable PROBLEMS Type Condition ICD9-CM Code MTO13-WT Code Onset Dates Condition S tatus SNOMED Code Problem Erectile dysfunction, unspecified erectile dysfunction typ e N52.9 Active 666497004 Problem Anger R45.4 Active 30083493 Problem Pain in right foot M79.671 Active 4 7817714 Problem Hx of cervical spine surgery Z98.89 A ctive 688957961 Problem Idiopathic peripheral neuropathy G60.9 Active 64276672 Problem Low back pain M54.5 Active 003702 005 Problem Pure hypercholesterolemia E78.00 Acti ve 580242459 Problem Psychophysiological insomnia F51.04 A ctive 609555246 Problem 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 Active 608438644 Problem Unspecified mood [affective] disorder F39 Active 231743099 Problem Other stimulant dependence, 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 Active 766407838 Problem Marijuana abuse F12.10 Active 3734 4009 Problem Drug-induced erectile dysfunction N52.2 Active 212208472 Problem Cannabis dependence, uncomplicated F12.20 Active 41296445 Problem Candidal dermatitis B37.2 Active 12726294 Problem Gastroesophageal reflux disease with esophagitis K 21.0 Active 524397722 Problem Pain in right knee M25.561 Active 3 20043657014143 Problem Wheezing R06.2 Active 43521865 Problem Mood disorder F39 Active 309316 05 Problem Acute left-sided low back pain with left-sided sciatica M54.42 Active 522006377 Problem Mixed hyperlipidemia E78.2 Active 815991983 Problem Chronic maxillary sinusitis J32.0 Ac tive 46405388 Problem Essential hypertension I10 Active 64462082 Problem Anxiety disorder, unspecified F41.9 Active 773895286 Problem Other chronic pain G89.29 Active 8 8523459 Problem Primary osteoarthritis of left hip M16.12 Active 016580172 Problem Anxiety F41.9 Active 40196670 Problem Polydipsia R63.1 Active 67480615 ALLERGIES No Information ENCOUNTERS Encounter Location Date Diagnosis [facility] [address] [address] Oct, Pre-procedural laboratory examination Z0 1.812 [place] [address] [address] Oct, Chronic maxillary sinusitis J32.0 [place] [address] [address] Oct, Sinus disease J34.9 [place] [address] [address] Oct, [place] [address] [address] Oct, Acute left-sided low back pain with left -sided sciatica M54.42 and Closed fracture of nasal bone with routine healing, subsequent encounter S02.2XXD [place] [address] [address] Sep, [place] [address] [address] Aug, Encounter for immunization Z23 and Nasal pain J34.89 [place] [address] [address] Jul, Separation of left acromioclavicular marco nt, initial encounter S43.102A [place] [address] [address] March, [place] [address] [address] March, Essential hypertension I10 [place] [address] [address] March, [place] [address] [address] Feb, [place] [address] [address] Feb, [place] [address] [address] Feb, [place] [address] [address] Feb, Prediabetes R73.03 [place] [address] [address] 21 Jan, 2019 [place] [address] [address] 14 Jan, 2019 [place] [address] [address] 13 Jan, 2019 Polydipsia R63.1 ; Peripheral edema R60. 9 ; Pre-diabetes R73.03 and Tongue lesion K14.8 [place] [address] [address] Sep, Other chronic pain G89.29 [place] [address] [address] Sep, Acute low back pain, unspecified back pa in laterality, with sciatica presence unspecified M54.5 [place] [address] [address] Sep, Low vitamin D level R79.89 [place] [address] [address] Aug, Acute low back pain, unspecified back pa in laterality, with sciatica presence unspecified M54.5 and Primary osteoarthritis of left hip M16.12 [place] [address] [address] Aug, [place] [address] [address] Jun, [place] [address] [address] Jun, Other chronic pain G89.29 and Pain in ri ght knee M25.561 [place] [address] [address] May, Primary osteoarthritis of left hip M16.1 2 ; Pain in left hip M25.552 ; Other acute postprocedural pain G89.18 and Anxiety F41.9 [facility] [address] [address] May, [facility] [address] [address] Apr, Pain in right knee M25.561 and Mood diso rder F39 [facility] [address] [address] Apr, [facility] [address] [id number] March, [facility] [address] [id number] March, Encounter for dental exam and cleaning w /o abnormal findings Z01.20 [facility] [address] [id number] March, Dental examination Z01.20 [facility] [address] [id number] March, Dental examination Z01.20 [facility] [address] [address] March, [facility] [address] [address] March, [facility] [address] [address] Feb, [facility] [address] [address] Feb, Primary osteoarthritis of left hip M16.1 2 [facility] [address] [address] Feb, Other chronic pain G89.29 and Pain in le ft hip M25.552 [facility] [address] [address] Feb, Acute pain of left hip M25.552 [place] [address] [address] Feb, Mood disorder F39 and Pain in right knee M25.561 [place] [address] [address] Jan, Other chronic pain G89.29 [place] [address] [address] Jan, Mood disorder F39 [place] [address] [address] Jan, Pain in right knee M25.561 [place] [address] [address] Jan, Pain in left hip M25.552 and Other chron ic pain G89.29 [place] [address] [address] Jan, Acute pain of left hip M25.552 [place] [address] [address] Jan, Acute pain of left hip M25.552 [place] [address] [address] Jan, Mood disorder F39 and Acute pain of left hip M25.552 [place] [address] [address] Nov, Mood disorder F39 [place] [address] [address] Oct, Essential hypertension I10 ; Mixed hyper lipidemia E78.2 and Low back pain M54.5 [place] [id number] [place] [id number] May, [place] [address] [id number] [place] [address] Apr, Essential hypertension I10 ; Anger R45.4 ; Mixed hyperlipidemia E78.2 ; Drug-induced erectile dysfunction N52.2 ; Gastroesophageal reflux disease with esophagitis K21.0 ; Pure hypercholesterolemia E78.00 ; Pain in right knee M25.561 ; Psychophysiological insomnia F51.04 and Wheezing R06.2 [place] [address] [address] March, Hx of cervical spine surgery Z98.89 [place] [address] [address] March, [place] [address] [place] [id number] Feb, Anxiety associated with depression F41.[address] [address] Jan, Anxiety associated with depression F41.[address] [address] Dec, [place] [address] [address] Dec, [address] [address] Dec, Essential hypertension I10 ; Erectile dy sfunction, unspecified erectile dysfunction type N52.9 and Hyperlipemia E78.[address] [address] Nov, Essential hypertension I10 ; Hx of cervi pierre spine surgery Z98.89 ; Erectile dysfunction, unspecified erectile dysfunction type N52.9 ; Idiopathic peripheral neuropathy G60.9 ; Anger R45.4 ; Anxiety associated with depression F41.8 ; Hyperlipemia E78.5 ; Wheezing R06.2 and Has daytime drowsiness R40.0 [place] [address] [address] Nov, [address] [address] Nov, [address] [address] Sep, [facility] [address] [address] Sep, Acute midline low back pain without scia peace M54.5 [facility] [address] [address] 10 Sep, 2016 Acute bilateral low back pain without sc iatica M54.5 [place] [address] [address] Aug, [place] [address] [address] Jun, Wheezing R06.2 ; Candidal dermatitis B37 .2 ; Essential hypertension I10 ; Erectile dysfunction, unspecified erectile dysfunction type N52.9 ; Idiopathic peripheral neuropathy G60.9 ; Mixed hyperlipidemia E78.2 and Other stimulant dependence, 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 [place] [address] [address] March, Essential hypertension I10 ; Hx of cervi pierre spine surgery Z98.89 ; Idiopathic peripheral neuropathy G60.9 ; Mixed hyperlipidemia E78.2 ; Anger R45.4 ; Drug-induced erectile dysfunction N52.2 and Gastroesophageal reflux disease with esophagitis K21.0 [place] [address] [address] Feb, [place] [address] [address] Dec, Low back pain M54.5 [place] [address] [address] Dec, [place] [address] [address] Dec, Unspecified mood [affective] disorder F3 9 ; Anxiety disorder, unspecified F41.9 ; Other stimulant dependence, 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 and Cannabis dependence, uncomplicated F12.20 [place] [address] [address] Dec, Essential hypertension I10 ; Hyperlipemi a E78.5 ; Erectile dysfunction, unspecified erectile dysfunction type N52.9 ; Anger R45.4 ; Mixed hyperlipidemia E78.2 ; Anxiety associated with depression F41.8 ; Elevated serum creatinine R79.89 ; 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 and Marijuana abuse F12.10 [place] [address] [address] Oct, Essential hypertension I10 ; Idiopathic peripheral neuropathy G60.9 ; Low back pain M54.5 ; Hx of cervical spine surgery Z98.89 ; Erectile dysfunction, unspecified erectile dysfunction type N52.9 ; Anger R45.4 ; Mixed hyperlipidemia E78.2 and Anxiety associated with depression F41.[address] [address] Oct, Unspecified mood [affective] disorder F3 9 and Anxiety disorder, unspecified F41.[address] [address] Oct, Hyperlipemia E78.[address] [address] Oct, Essential hypertension I10 [address] [address] Oct, [address] [address] Oct, Essential hypertension I10 ; Idiopathic peripheral neuropathy G60.9 ; Low back pain M54.5 ; Hx of cervical spine surgery Z98.89 ; Pain in right hand M79.641 ; Pain of left hand M79.642 ; Pain in left foot M79.672 ; Pain in right foot M79.671 ; Erectile dysfunction, unspecified erectile dysfunction type N52.9 and Anger R45.4 [place] [address] [address] Sep, [address] [address] Jul, [address] [id number] [place] [address] Jun, [facility] [address] [id number] [place] [address] May, [facility] [address] [id number] [place] [address] Apr, [facility] [address] [id number] [place] [address] March, [facility] [address] [id number] [place] [address] Feb, [facility] [address] [id number] [place] [address] Feb, [facility] [address] [id number] [place] [address] Jan, [facility] [address] [id number] [place] [address] Jan, [facility] [address] [id number] [place] [address] Nov, [facility] [address] [id number] [place] [address] Nov, [facility] [address] [id number] [place] [address] Nov, [facility] [address] [id number] [place] [address] Nov, [facility] [address] [id number] [place] [address] Nov, [facility] [address] [id number] [place] [address] Nov, [facility] [address] [place] [id number] [place] [address] Oct, [facility] [address] [id number] [place] [address] Oct, [facility] [address] [id number] [place] [address] Oct, [facility] [address] [id number] [place] [address] Oct, [facility] [address] [id number] [place] [address] Sep, [facility] [address] [id number] [place] [address] Sep, [facility] [address] [id number] [place] [address] Sep, [facility] [address] [facility] [address] [facility] [id number] [place] [address] Sep, [facility] [address] [id number] [place] [address] Sep, [facility] [address] [id number] [place] [address] 16 Aug, 2014 [facility] [address] [id number] [place] [address] 16 Aug, 2014 [facility] [address] [id number] [place] [address] 15 Aug, 2014 [facility] [address] [id number] [place] [address] 15 Aug, 2014 [facility] [address] [id number] [place] [address] 15 Aug, 2014 [facility] [address] [id number] [place] [address] 15 Aug, 2014 [facility] [address] [id number] [place] [address] 13 Aug, 2014 [facility] [address] [id number] [place] [address] 07 Aug, 2014 [facility] [address] [id number] [place] [address] 07 Aug, 2014 [facility] [address] [id number] [place] [address] 06 Aug, 2013 [facility] [address] [id number] [place] [address] Aug, [facility] [address] [id number] [facility] [place] [address] Jul, [facility] [address] [address] [facility] [id number] [place] [address] Jul, [facility] [address] [facility] [id number] [place] [address] Jul, [facility] [address] [facility] [id number] [place] [address] Jul, [facility] [address] [facility] [id number] [place] [address] Jun, [facility] [address] [facility] [id number] [place] [address] Jun, [facility] [address] [id number] [place] [address] Jun, [facility] [address] [id number] [place] [address] Jun, [facility] [address] [facility] [id number] [place] [address] Jun, [facility] [address] [id number] [place] [address] Jun, [facility] [address] [id number] [place] [address] May, [facility] [address] [id number] [place] [address] May, [facility] [address] [facility] [id number] [place] [address] May, [facility] [address] [facility] [id number] [place] [address] May, [facility] [address] [facility] [id number] [place] [id number] May, [facility] [address] [facility] [id number] [place] [address] May, [facility] [address] [id number] [facility] [place] [address] May, [facility] [address] [facility] [id number] [facility] [place] [address] May, [facility] [address] [facility] [id number] [place] [address] May, [facility] [address] [id number] [place] [address] May, [facility] [address] [facility] [id number] [facility] [place] [address] May, [facility] [address] [facility] [id number] [place] [address] May, [facility] [address] [id number] [place] [address] Apr, [facility] [address] [id number] [place] [address] Apr, [facility] [address] [id number] [place] [address] March, [facility] [address] [id number] [place] [address] March, [facility] [address] [id number] [place] [address] March, [facility] [address] [id number] [place] [address] March, [facility] [address] [id number] [place] [address] Feb, [facility] [address] [address] [facility] [id number] [place] [address] Feb, [facility] [address] [id number] [place] [address] Jan, [facility] [address] [id number] [place] [address] Jan, [facility] [address] [id number] [place] [address] Jan, [facility] [address] [id number] [place] [address] Jan, [facility] [address] [id number] [place] [address] Dec, [facility] [address] [id number] [place] [address] Dec, [facility] [address] [id number] [place] [address] Nov, [facility] [address] [id number] [place] [address] Nov, [facility] [address] [id number] [place] [address] Nov, [facility] [address] [id number] [place] [address] Nov, [facility] [address] [id number] [place] [address] Oct, [facility] [address] [id number] [place] [address] Oct, [facility] [address] [id number] [place] [address] Sep, [facility] [address] [id number] [place] [address] Sep, [facility] [address] [id number] [place] [address] Jul, [facility] [address] [id number] [place] [address] Jul, [facility] [address] [id number] [place] [address] Jul, [facility] [address] [id number] [place] [address] Jun, [facility] [address] [id number] [place] [address] Jun, [facility] [address] [id number] [place] [address] May, [facility] [address] [id number] [place] [address] May, [facility] [address] [id number] [place] [address] May, [facility] [address] [id number] [place] [address] March, [facility] [address] [place] [id number] [place] [address] Jan, [facility] [address] [id number] [place] [address] Jan, [facility] [address] [id number] [place] [address] Jan, [facility] [address] [id number] [place] [address] Dec, [facility] [id number] [place] [address] May, [facility] [address] [id number] [place] [address] March, [facility] [address] [place] [id number] [place] [address] Jan, [facility] [address] [id number] [place] [address] Aug, [facility] [address] [address] [id number] [place] [address] Aug, [facility] [address] [id number] [place] [address] Aug, [facility] [id number] [place] [address] Jun, [facility] [address] [id number] [place] [address] May, [facility] [address] [id number] [place] [address] Oct, IMMUNIZATIONS No Known Immunizations SOCIAL HISTORY [...]
--- OUTSIDE RECORDS SUMMARY | 2020-02-05 10:57 | XMS REPORT ---
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 Name Role Phone BÁRBARA BHANDARI Unavailable PROBLEMS Type Condition ICD9-CM Code ADU06-YR Code Onset Dates Condition S tatus SNOMED Code Problem Erectile dysfunction, unspecified erectile dysfunction typ e N52.9 Active 474648018 Problem Anger R45.4 Active 02475381 Problem Pain in right foot M79.671 Active 4 6802823 Problem Hx of cervical spine surgery Z98.89 A ctive 506541997 Problem Idiopathic peripheral neuropathy G60.9 Active 71529905 Problem Low back pain M54.5 Active 120945 005 Problem Pure hypercholesterolemia E78.00 Acti ve 564195388 Problem Psychophysiological insomnia F51.04 A ctive 513168006 Problem 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 Active 637894649 Problem Unspecified mood [affective] disorder F39 Active 066036442 Problem Other stimulant dependence, 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 Active 609955303 Problem Marijuana abuse F12.10 Active 3734 4009 Problem Drug-induced erectile dysfunction N52.2 Active 028113470 Problem Cannabis dependence, uncomplicated F12.20 Active 27979074 Problem Candidal dermatitis B37.2 Active 45324170 Problem Gastroesophageal reflux disease with esophagitis K 21.0 Active 616680779 Problem Pain in right knee M25.561 Active 3 [id number] Problem Wheezing R06.2 Active 92106309 Problem Mood disorder F39 Active 867526 05 Problem Acute left-sided low back pain with left-sided sciatica M54.42 Active 006200806 Problem Mixed hyperlipidemia E78.2 Active 368360049 Problem Chronic maxillary sinusitis J32.0 Ac tive 96947057 Problem Essential hypertension I10 Active 09960803 Problem Anxiety disorder, unspecified F41.9 Active 543410749 Problem Other chronic pain G89.29 Active 8 8278902 Problem Primary osteoarthritis of left hip M16.12 Active 607553456 Problem Anxiety F41.9 Active 36095085 Problem Polydipsia R63.1 Active 99062860 ALLERGIES No Information ENCOUNTERS Encounter Location Date Diagnosis [place] [address] [address] Oct, Pre-procedural laboratory examination Z0 1.812 [place] [address] [address] Oct, Chronic maxillary sinusitis J32.0 [place] [address] [address] Oct, Sinus disease J34.9 [place] [address] [address] Oct, [place] [address] [address] Oct, Acute left-sided low back pain with left -sided sciatica M54.42 and Closed fracture of nasal bone with routine healing, subsequent encounter S02.2XXD [place] [address] [address] Sep, [place] [address] [address] Aug, Encounter for immunization Z23 and Nasal pain J34.89 [place] [address] [address] Jul, Separation of left acromioclavicular marco nt, initial encounter S43.102A [place] [address] [address] March, [place] [address] [address] March, Essential hypertension I10 [place] [address] [address] March, [place] [address] [address] Feb, [place] [address] [address] 17 Feb, 2019 [place] [address] [address] Feb, [place] [address] [address] Feb, Prediabetes R73.03 [place] [address] [address] Jan, [place] [address] [address] Jan, [place] [address] [address] Jan, Polydipsia R63.1 ; Peripheral edema R60. 9 ; Pre-diabetes R73.03 and Tongue lesion K14.8 [place] [address] [address] Sep, Other chronic pain G89.29 [place] [address] [address] Sep, Acute low back pain, unspecified back pa in laterality, with sciatica presence unspecified M54.5 [place] [address] [address] Sep, Low vitamin D level R79.89 [place] [address] [address] Aug, Acute low back pain, unspecified back pa in laterality, with sciatica presence unspecified M54.5 and Primary osteoarthritis of left hip M16.12 [place] [address] [address] Aug, [place] [address] [address] Jun, [place] [address] [address] Jun, Other chronic pain G89.29 and Pain in ri ght knee M25.561 [facility] [address] [address] May, Primary osteoarthritis of left hip M16.1 2 ; Pain in left hip M25.552 ; Other acute postprocedural pain G89.18 and Anxiety F41.9 [facility] [address] [address] May, [facility] [address] [address] Apr, Pain in right knee M25.561 and Mood diso rder F39 [facility] [address] [address] Apr, [facility] [address] [id number] March, [facility] [address] [id number] March, Encounter for dental exam and cleaning w /o abnormal findings Z01.20 [facility] [address] [id number] March, Dental examination Z01.20 [facility] [address] [id number] March, Dental examination Z01.20 [facility] [address] [address] March, [facility] [address] [address] March, [facility] [address] [address] Feb, [facility] [address] [address] Feb, Primary osteoarthritis of left hip M16.1 2 [facility] [address] [address] Feb, Other chronic pain G89.29 and Pain in le ft hip M25.552 [facility] [address] [address] Feb, Acute pain of left hip M25.552 [place] [address] [address] Feb, Mood disorder F39 and Pain in right knee M25.561 [facility] [address] [address] Jan, Other chronic pain G89.29 [place] [address] [address] Jan, Mood disorder F39 [place] [address] [address] Jan, Pain in right knee M25.561 [place] [address] [address] Jan, Pain in left hip M25.552 and Other chron ic pain G89.29 [place] [address] [address] Jan, Acute pain of left hip M25.552 [place] [address] [address] Jan, Acute pain of left hip M25.552 [place] [address] [address] Jan, Mood disorder F39 and Acute pain of left hip M25.552 [place] [address] [address] Nov, Mood disorder F39 [place] [address] [address] Oct, Essential hypertension I10 ; Mixed hyper lipidemia E78.2 and Low back pain M54.5 [facility] [id number] [place] [id number] May, [place] [address] [address] Apr, Essential hypertension I10 ; Anger R45.4 ; Mixed hyperlipidemia E78.2 ; Drug-induced erectile dysfunction N52.2 ; Gastroesophageal reflux disease with esophagitis K21.0 ; Pure hypercholesterolemia E78.00 ; Pain in right knee M25.561 ; Psychophysiological insomnia F51.04 and Wheezing R06.2 [place] [address] [address] March, Hx of cervical spine surgery Z98.89 [place] [address] [address] March, [place] [address] [address] Feb, Anxiety associated with depression F41.8 [place] [address] [address] Jan, Anxiety associated with depression F41.8 [place] [address] [address] Dec, [place] [address] [address] Dec, [place] [address] [address] Dec, Essential hypertension I10 ; Erectile dy sfunction, unspecified erectile dysfunction type N52.9 and Hyperlipemia E78.5 [place] [address] [address] Nov, Essential hypertension I10 ; Hx of cervi pierre spine surgery Z98.89 ; Erectile dysfunction, unspecified erectile dysfunction type N52.9 ; Idiopathic peripheral neuropathy G60.9 ; Anger R45.4 ; Anxiety associated with depression F41.8 ; Hyperlipemia E78.5 ; Wheezing R06.2 and Has daytime drowsiness R40.0 [place] [address] [address] Nov, [place] [address] [address] Nov, [place] [address] [address] Sep, [place] [address] [address] Sep, Acute midline low back pain without scia peace M54.5 [place] [address] [address] Sep, Acute bilateral low back pain without sc iatica M54.5 [place] [address] [address] Aug, [place] [address] [address] Jun, Wheezing R06.2 ; Candidal dermatitis B37 .2 ; Essential hypertension I10 ; Erectile dysfunction, unspecified erectile dysfunction type N52.9 ; Idiopathic peripheral neuropathy G60.9 ; Mixed hyperlipidemia E78.2 and Other stimulant dependence, 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 [place] [address] [address] March, Essential hypertension I10 ; Hx of cervi pierre spine surgery Z98.89 ; Idiopathic peripheral neuropathy G60.9 ; Mixed hyperlipidemia E78.2 ; Anger R45.4 ; Drug-induced erectile dysfunction N52.2 and Gastroesophageal reflux disease with esophagitis K21.0 [place] [address] [address] Feb, [place] [address] [address] Dec, Low back pain M54.5 [place] [address] [address] Dec, [place] [address] [address] Dec, Unspecified mood [affective] disorder F3 9 ; Anxiety disorder, unspecified F41.9 ; Other stimulant dependence, 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 and Cannabis dependence, uncomplicated F12.20 [place] [address] [address] 09 Dec, 2015 Essential hypertension I10 ; Hyperlipemi a E78.5 ; Erectile dysfunction, unspecified erectile dysfunction type N52.9 ; Anger R45.4 ; Mixed hyperlipidemia E78.2 ; Anxiety associated with depression F41.8 ; Elevated serum creatinine R79.89 ; 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 and Marijuana abuse F12.10 [place] [id number] Oct, Essential hypertension I10 ; Idiopathic peripheral neuropathy G60.9 ; Low back pain M54.5 ; Hx of cervical spine surgery Z98.89 ; Erectile dysfunction, unspecified erectile dysfunction type N52.9 ; Anger R45.4 ; Mixed hyperlipidemia E78.2 and Anxiety associated with depression F41.[address] [address] Oct, Unspecified mood [affective] disorder F3 9 and Anxiety disorder, unspecified F41.[address] [address] Oct, Hyperlipemia E78.[address] [address] Oct, Essential hypertension I10 [address] [address] Oct, [place] [address] Oct, Essential hypertension I10 ; Idiopathic peripheral neuropathy G60.9 ; Low back pain M54.5 ; Hx of cervical spine surgery Z98.89 ; Pain in right hand M79.641 ; Pain of left hand M79.642 ; Pain in left foot M79.672 ; Pain in right foot M79.671 ; Erectile dysfunction, unspecified erectile dysfunction type N52.9 and Anger R45.[address] [address] Sep, [place] [id number] [place] [address] Jul, [facility] [address] [id number] [place] [address] Jun, [facility] [address] [id number] [place] [address] May, [facility] [address] [id number] [place] [address] Apr, [facility] [address] [id number] [place] [address] March, [facility] [address] [id number] [place] [address] Feb, [facility] [address] [id number] [place] [address] Feb, [facility] [address] [place] [id number] [place] [address] Jan, [facility] [address] [id number] [place] [address] Jan, [facility] [address] [id number] [place] [address] Nov, [facility] [address] [id number] [place] [address] Nov, [facility] [address] [place] [id number] [place] [address] Nov, [facility] [address] [id number] [place] [address] Nov, [facility] [address] [id number] [place] [address] Nov, [facility] [address] [place] [id number] [place] [address] Nov, [facility] [address] [id number] [place] [address] Oct, [facility] [address] [id number] [place] [address] Oct, [facility] [address] [facility] [id number] [place] [address] Oct, [facility] [address] [id number] [place] [address] Oct, [facility] [address] [id number] [place] [address] Sep, [facility] [address] [id number] [place] [address] Sep, [facility] [address] [id number] [place] [address] Sep, [facility] [address] [id number] [place] [address] Sep, [facility] [address] [id number] [place] [address] Sep, [facility] [address] [id number] [place] [address] 16 Aug, 2014 [facility] [address] [id number] [place] [address] 16 Aug, 2014 [facility] [address] [id number] [place] [address] 15 Aug, 2014 [facility] [address] [id number] [place] [address] 15 Aug, 2014 [facility] [address] [id number] [place] [address] 15 Aug, 2014 [facility] [address] [id number] [place] [address] 15 Aug, 2014 [facility] [address] [id number] [place] [address] 13 Aug, 2014 [facility] [address] [id number] [place] [address] 07 Aug, 2014 [facility] [address] [id number] [place] [address] 07 Aug, 2014 [facility] [address] [id number] [place] [address] Aug, [facility] [address] [facility] [id number] [place] [address] Aug, [facility] [address] [facility] [id number] [place] [address] Jul, [facility] [address] [id number] [place] [address] Jul, [facility] [address] [facility] [id number] [place] [address] Jul, [facility] [address] [facility] [id number] [place] [address] Jul, [facility] [address] [id number] [place] [address] Jun, [facility] [address] [id number] [place] [address] Jun, [facility] [address] [id number] [place] [address] Jun, [facility] [address] [id number] [place] [address] Jun, [facility] [address] [id number] [place] [address] Jun, [facility] [address] [id number] [place] [address] Jun, [facility] [address] [id number] [place] [address] May, [facility] [address] [id number] [place] [address] May, [facility] [address] [id number] [place] [address] May, [facility] [address] [id number] [place] [address] May, [facility] [address] [facility] [id number] [place] [id number] May, [facility] [address] [id number] [place] [address] May, [facility] [address] [id number] [place] [address] May, [facility] [address] [facility] [id number] [place] [address] May, [facility] [address] [id number] [place] [address] May, [facility] [address] [id number] [place] [address] May, [facility] [address] [facility] [id number] [place] [address] May, [facility] [address] [id number] [place] [address] May, [facility] [address] [id number] [place] [address] Apr, [facility] [address] [id number] [place] [address] Apr, [facility] [address] [id number] [place] [address] March, [facility] [address] [id number] [place] [address] March, [facility] [address] [id number] [place] [address] March, [facility] [address] [id number] [place] [address] March, [facility] [address] [id number] [place] [address] Feb, [facility] [address] [id number] [place] [address] Feb, [facility] [address] [id number] [place] [address] Jan, [facility] [address] [id number] [place] [address] Jan, [facility] [address] [id number] [place] [address] Jan, [facility] [address] [id number] [place] [address] Jan, [facility] [address] [id number] [place] [address] Dec, [facility] [address] [id number] [place] [address] Dec, [facility] [address] [id number] [place] [address] Nov, [facility] [address] [id number] [place] [address] Nov, [facility] [address] [id number] [place] [address] Nov, [facility] [address] [id number] [place] [address] Nov, [facility] [address] [id number] [place] [address] Oct, [facility] [address] [id number] [place] [address] Oct, [facility] [address] [id number] [place] [address] Sep, [facility] [address] [id number] [place] [address] Sep, [facility] [address] [id number] [place] [address] Jul, [facility] [address] [id number] [place] [address] 19 Jul, 2013 [facility] [address] [id number] [place] [address] Jul, [facility] [address] [id number] [place] [address] Jun, [facility] [address] [id number] [place] [address] Jun, [facility] [address] [id number] [place] [address] May, [facility] [address] [id number] [facility] [place] [address] May, [facility] [address] [id number] [place] [address] May, [facility] [address] [id number] [place] [address] March, [facility] [address] [id number] [place] [address] Jan, [facility] [address] [id number] [place] [address] Jan, [facility] [address] [id number] [place] [address] Jan, [facility] [address] [id number] [place] [address] Dec, [facility] [address] [id number] [place] [address] May, [facility] [address] [id number] [place] [address] March, [facility] [address] [id number] [place] [address] Jan, [facility] [address] [id number] [place] [address] 14 Aug, 2011 [facility] [address] [id number] [place] [address] Aug, [facility] [address] [id number] [place] [address] Aug, [facility] [address] [id number] [place] [address] Jun, [facility] [address] [id number] [place] [address] 14 May, 2011 [facility] [address] [id number] [place] [address] Oct, IMMUNIZATIONS No Known Immunizations SOCIAL HISTORY [...]
--- OUTSIDE RECORDS SUMMARY | 2020-02-05 10:57 | XMS REPORT ---
Author Author Jelani BHANDARI Organization [facility] Address [address] [place] [address] Care Team Providers Care Cement Patcher Name Role Phone BÁRBARA BHANDARI Unavailable PROBLEMS Type Condition ICD9-CM Code BWD98-YO Code Onset Dates Condition S tatus SNOMED Code Problem Erectile dysfunction, unspecified erectile dysfunction typ e N52.9 Active 543564680 Problem Anger R45.4 Active 38646044 Problem Pain in right foot M79.671 Active 4 3233072 Problem Hx of cervical spine surgery Z98.89 A ctive 985780913 Problem Idiopathic peripheral neuropathy G60.9 Active 56595391 Problem Low back pain M54.5 Active 706546 005 Problem Pure hypercholesterolemia E78.00 Acti ve 406817303 Problem Psychophysiological insomnia F51.04 A ctive 177248274 Problem 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 Active 462300854 Problem Unspecified mood [affective] disorder F39 Active 519721544 Problem Other stimulant dependence, 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 Active 047109967 Problem Marijuana abuse F12.10 Active 3734 4009 Problem Drug-induced erectile dysfunction N52.2 Active 747819503 Problem Cannabis dependence, uncomplicated F12.20 Active 40271922 Problem Candidal dermatitis B37.2 Active 85762426 Problem Gastroesophageal reflux disease with esophagitis K 21.0 Active 661055233 Problem Pain in right knee M25.561 Active 3 [id number] Problem Wheezing R06.2 Active 71570894 Problem Mood disorder F39 Active 637990 05 Problem Acute left-sided low back pain with left-sided sciatica M54.42 Active 048726236 Problem Mixed hyperlipidemia E78.2 Active 183956679 Problem Chronic maxillary sinusitis J32.0 Ac tive 73588210 Problem Essential hypertension I10 Active 71898580 Problem Anxiety disorder, unspecified F41.9 Active 901891633 Problem Other chronic pain G89.29 Active 8 9259523 Problem Primary osteoarthritis of left hip M16.12 Active 122032617 Problem Anxiety F41.9 Active 00156597 Problem Polydipsia R63.1 Active 72987341 ALLERGIES No Information ENCOUNTERS Encounter Location Date Diagnosis [place] [address] [address] Dec, [facility] [address] [address] 18 Dec, 2019 [facility] [address] [address] Dec, [place] [address] [address] Dec, Pain in right knee M25.561 ; Mixed hyper lipidemia E78.2 ; Unspecified mood [affective] disorder F39 ; Essential hypertension I10 and Encounter for immunization Z23 [place] [address] [address] Dec, [facility] [address] [facility] [id number] [address] [address] Dec, Acute pain of right knee M25 .561 [place] [address] [address] Oct, Pre-procedural laboratory examination Z0 1.812 [place] [address] [address] Oct, Chronic maxillary sinusitis J32.0 [place] [address] [address] Oct, Sinus disease J34.9 [place] [address] [address] Oct, [place] [address] [address] Oct, Acute left-sided low back pain with left -sided sciatica M54.42 and Closed fracture of nasal bone with routine healing, subsequent encounter S02.2XXD [place] [address] [address] Sep, [facility] [address] [address] Aug, Encounter for immunization Z23 and Nasal pain J34.89 [facility] [address] [address] 24 Jul, 2019 Separation of left acromioclavicular marco nt, initial encounter S43.102A [place] [address] [address] March, [facility] [address] [address] March, Essential hypertension I10 [place] [address] [address] March, [facility] [address] [address] Feb, [facility] [address] [address] Feb, [facility] [address] [address] Feb, [place] [address] [address] 15 Feb, 2019 Prediabetes R73.03 [place] [address] [address] Jan, [facility] [address] [address] Jan, [facility] [address] [address] 13 Jan, 2019 Polydipsia R63.1 ; Peripheral edema R60. 9 ; Pre-diabetes R73.03 and Tongue lesion K14.8 [facility] [address] [address] Sep, Other chronic pain G89.29 [facility] [address] [address] Sep, Acute low back pain, unspecified back pa in laterality, with sciatica presence unspecified M54.5 [place] [address] [address] Sep, Low vitamin D level R79.89 [place] [address] [address] Aug, Acute low back pain, unspecified back pa in laterality, with sciatica presence unspecified M54.5 and Primary osteoarthritis of left hip M16.12 [place] [address] [address] Aug, [place] [address] [address] Jun, [place] [address] [address] Jun, Other chronic pain G89.29 and Pain in ri ght knee M25.561 [place] [address] [address] May, Primary osteoarthritis of left hip M16.1 2 ; Pain in left hip M25.552 ; Other acute postprocedural pain G89.18 and Anxiety F41.9 [place] [address] [address] May, [place] [address] [address] Apr, Pain in right knee M25.561 and Mood diso rder F39 [place] [address] [address] Apr, [facility] [address] [id number] March, [facility] [address] [id number] March, Encounter for dental exam and cleaning w /o abnormal findings Z01.20 [facility] [address] [place] [id number] March, Dental examination Z01.20 [facility] [address] [id number] March, Dental examination Z01.20 [facility] [address] [address] March, [facility] [address] [address] March, [facility] [address] [address] Feb, [facility] [address] [address] Feb, Primary osteoarthritis of left hip M16.1 2 [facility] [address] [address] Feb, Other chronic pain G89.29 and Pain in le ft hip M25.552 [facility] [address] [address] Feb, Acute pain of left hip M25.552 [facility] [address] [address] Feb, Mood disorder F39 and Pain in right knee M25.561 [facility] [address] [address] Jan, Other chronic pain G89.29 [facility] [address] [address] Jan, Mood disorder F39 [facility] [address] [address] Jan, Pain in right knee M25.561 [facility] [address] [address] Jan, Pain in left hip M25.552 and Other chron ic pain G89.29 [facility] [address] [address] Jan, Acute pain of left hip M25.552 [facility] [address] [address] Jan, Acute pain of left hip M25.552 [facility] [address] [address] 08 Jan, 2018 Mood disorder F39 and Acute pain of left hip M25.552 [place] [address] [address] Nov, Mood disorder F39 [place] [address] [address] Oct, Essential hypertension I10 ; Mixed hyper lipidemia E78.2 and Low back pain M54.5 [place] [id number] [place] [id number] May, [place] [address] [address] Apr, Essential hypertension I10 ; Anger R45.4 ; Mixed hyperlipidemia E78.2 ; Drug-induced erectile dysfunction N52.2 ; Gastroesophageal reflux disease with esophagitis K21.0 ; Pure hypercholesterolemia E78.00 ; Pain in right knee M25.561 ; Psychophysiological insomnia F51.04 and Wheezing R06.2 [place] [address] [address] March, Hx of cervical spine surgery Z98.89 [place] [address] [address] March, [place] [address] [address] Feb, Anxiety associated with depression F41.8 [place] [address] [address] Jan, Anxiety associated with depression F41.8 [place] [address] [address] Dec, [place] [address] [address] Dec, [place] [address] [address] Dec, Essential hypertension I10 ; Erectile dy sfunction, unspecified erectile dysfunction type N52.9 and Hyperlipemia E78.5 [place] [address] [address] Nov, Essential hypertension I10 ; Hx of cervi pierre spine surgery Z98.89 ; Erectile dysfunction, unspecified erectile dysfunction type N52.9 ; Idiopathic peripheral neuropathy G60.9 ; Anger R45.4 ; Anxiety associated with depression F41.8 ; Hyperlipemia E78.5 ; Wheezing R06.2 and Has daytime drowsiness R40.0 [place] [address] [address] Nov, [place] [address] [address] Nov, [place] [address] [address] Sep, [place] [address] [address] Sep, Acute midline low back pain without scia peace M54.5 [place] [address] [address] Sep, Acute bilateral low back pain without sc iatica M54.5 [place] [address] [address] Aug, [place] [address] [address] Jun, Wheezing R06.2 ; Candidal dermatitis B37 .2 ; Essential hypertension I10 ; Erectile dysfunction, unspecified erectile dysfunction type N52.9 ; Idiopathic peripheral neuropathy G60.9 ; Mixed hyperlipidemia E78.2 and Other stimulant dependence, 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 [place] [address] [address] March, Essential hypertension I10 ; Hx of cervi pierre spine surgery Z98.89 ; Idiopathic peripheral neuropathy G60.9 ; Mixed hyperlipidemia E78.2 ; Anger R45.4 ; Drug-induced erectile dysfunction N52.2 and Gastroesophageal reflux disease with esophagitis K21.0 [place] [address] [address] Feb, [place] [address] [place] [address] Dec, Low back pain M54.[address] [address] Dec, [address] [address] Dec, Unspecified mood [affective] disorder F3 9 ; Anxiety disorder, unspecified F41.9 ; Other stimulant dependence, 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 and Cannabis dependence, uncomplicated F12.[address] [address] Dec, Essential hypertension I10 ; Hyperlipemi a E78.5 ; Erectile dysfunction, unspecified erectile dysfunction type N52.9 ; Anger R45.4 ; Mixed hyperlipidemia E78.2 ; Anxiety associated with depression F41.8 ; Elevated serum creatinine R79.89 ; 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 and Marijuana abuse F12.[address] [address] Oct, Essential hypertension I10 ; Idiopathic peripheral neuropathy G60.9 ; Low back pain M54.5 ; Hx of cervical spine surgery Z98.89 ; Erectile dysfunction, unspecified erectile dysfunction type N52.9 ; Anger R45.4 ; Mixed hyperlipidemia E78.2 and Anxiety associated with depression F41.8 [place] [address] [address] Oct, Unspecified mood [affective] disorder F3 9 and Anxiety disorder, unspecified F41.9 [place] [address] Oct, Hyperlipemia E78.5 [facility] [address] [address] Oct, Essential hypertension I10 [facility] [address] [address] Oct, [facility] [address] [address] Oct, Essential hypertension I10 ; Idiopathic peripheral neuropathy G60.9 ; Low back pain M54.5 ; Hx of cervical spine surgery Z98.89 ; Pain in right hand M79.641 ; Pain of left hand M79.642 ; Pain in left foot M79.672 ; Pain in right foot M79.671 ; Erectile dysfunction, unspecified erectile dysfunction type N52.9 and Anger R45.4 [facility] [address] [address] Sep, [facility] [address] [address] Jul, [facility] [address] [address] Jun, [facility] [address] [address] May, [facility] [address] [address] Apr, [facility] [address] [address] March, [facility] [address] [address] Feb, [facility] [address] [address] Feb, [facility] [address] [address] Jan, [facility] [address] [address] Jan, [facility] [address] [id number] [place] [address] Nov, [facility] [address] [id number] [place] [address] Nov, [facility] [address] [id number] [place] [address] Nov, [facility] [address] [id number] [place] [address] Nov, [facility] [address] [id number] [place] [address] Nov, [facility] [address] [id number] [place] [address] Nov, [facility] [address] [id number] [place] [address] Oct, [facility] [address] [id number] [place] [address] Oct, [facility] [address] [id number] [place] [address] Oct, [facility] [address] [id number] [place] [address] Oct, [facility] [address] [id number] [place] [address] Sep, [facility] [address] [id number] [place] [address] Sep, [facility] [address] [id number] [place] [address] Sep, [facility] [address] [id number] [place] [address] Sep, [facility] [address] [place] [id number] [place] [address] Sep, [facility] [address] [id number] [place] [address] Aug, [facility] [address] [id number] [place] [address] 16 Aug, 2014 [facility] [address] [facility] [id number] [place] [address] 15 Aug, 2014 [facility] [address] [facility] [id number] [place] [address] 15 Aug, 2014 [facility] [address] [id number] [place] [address] 15 Aug, 2014 [facility] [address] [facility] [id number] [place] [address] 15 Aug, 2014 [facility] [address] [facility] [id number] [place] [address] 13 Aug, 2014 [facility] [address] [id number] [place] [address] 07 Aug, 2014 [facility] [address] [id number] [place] [address] 07 Aug, 2014 [facility] [address] [id number] [place] [address] 06 Aug, 2014 [facility] [address] [facility] [id number] [place] [address] 06 Aug, 2014 [facility] [address] [id number] [place] [address] 19 Jul, 2014 [facility] [address] [id number] [place] [address] 19 Jul, 2013 [facility] [address] [id number] [place] [address] 18 Jul, 2013 [facility] [address] [facility] [id number] [place] [address] 18 Jul, 2013 [facility] [address] [id number] [place] [address] Jun, [facility] [address] [id number] [place] [address] Jun, [facility] [address] [id number] [place] [address] Jun, 2013 [facility] [address] [id number] [place] [address] Jun, 2013 [facility] [address] [facility] [id number] [place] [address] Jun, [facility] [address] [facility] [id number] [place] [address] Jun, [facility] [address] [facility] [id number] [place] [address] May, [facility] [address] [facility] [id number] [place] [address] May, [facility] [address] [facility] [id number] [place] [address] May, [facility] [address] [facility] [id number] [place] [address] May, [facility] [address] [facility] [id number] [place] [id number] May, [facility] [address] [id number] [place] [address] May, [facility] [address] [facility] [id number] [place] [address] May, [facility] [address] [id number] [place] [address] May, [facility] [address] [id number] [place] [address] May, [facility] [address] [id number] [place] [address] May, [facility] [address] [facility] [id number] [place] [address] May, [facility] [address] [id number] [place] [address] May, [facility] [address] [id number] [place] [address] Apr, [facility] [address] [id number] [place] [address] Apr, [facility] [address] [id number] [place] [address] March, [facility] [address] [id number] [place] [address] March, [facility] [address] [id number] [place] [address] March, [facility] [address] [id number] [place] [address] March, [facility] [address] [id number] [place] [address] Feb, [facility] [address] [id number] [place] [address] Feb, [facility] [address] [id number] [place] [address] Jan, [facility] [address] [id number] [place] [address] Jan, [facility] [address] [id number] [place] [address] Jan, [facility] [address] [id number] [place] [address] Jan, [facility] [address] [id number] [place] [address] Dec, [facility] [address] [id number] [place] [address] Dec, [facility] [address] [id number] [place] [address] Nov, [facility] [address] [id number] [place] [address] Nov, [facility] [address] [id number] [place] [address] Nov, [facility] [address] [id number] [place] [address] Nov, [facility] [address] [id number] [place] [address] Oct, [facility] [address] [id number] [place] [address] Oct, [facility] [address] [id number] [place] [address] Sep, [facility] [address] [id number] [place] [address] Sep, [facility] [address] [id number] [place] [address] Jul, [facility] [address] [facility] [id number] [place] [address] Jul, [facility] [address] [id number] [place] [address] Jul, [facility] [address] [id number] [place] [address] Jun, [facility] [address] [id number] [place] [address] Jun, [facility] [address] [id number] [place] [address] May, [facility] [address] [id number] [place] [address] May, [facility] [address] [id number] [place] [address] May, [facility] [address] [id number] [place] [address] March, [facility] [address] [id number] [place] [address] Jan, [facility] [address] [id number] [place] [address] Jan, [facility] [address] [id number] [place] [address] Jan, [facility] [address] [id number] [place] [address] Dec, [facility] [address] [id number] [place] [address] May, [facility] [address] [id number] [place] [address] March, [facility] [address] [id number] [place] [address] Jan, [facility] [address] [place] [id number] [place] [address] Aug, [facility] [address] [address] Aug, [facility] [address] [place] [id number] [place] [address] Aug, [facility] [id number] [place] [address] Jun, [facility] [id number] [place] [address] May, [facility] [address] [id number] [place] [address] Oct, IMMUNIZATIONS No Known Immunizations SOCIAL HISTORY Never Assessed REASON FOR VISIT PLAN OF CARE VITAL SIGNS Height 66 in 2013-12-17 Weight 182.4 lbs 2013-12-17 Temperature 96.2 degrees Fahrenheit 2013-12-17 Heart Rate 72 bpm 2013-12-17 Respiratory Rate 18 2013-12-17 Blood pressure systolic 118 mmHg 2013-12-17 Blood pressure diastolic 82 mmHg 2013-12-17 MEDICATIONS Unknown Medications RESULTS No Results PROCEDURES [...]
--- OUTSIDE RECORDS SUMMARY | 2020-02-05 10:57 | XMS REPORT ---
Author Author Jelani BHANDARI Organization [facility] [place] Address [address] [place] [address] Care Team Providers Care Lion Tamer Name Role Phone BÁRBARA BHANDARI Unavailable PROBLEMS Type Condition ICD9-CM Code [id number] Code Onset Dates Condition S tatus SNOMED Code Problem Erectile dysfunction, unspecified erectile dysfunction typ e N52.9 Active 407738295 Problem Anger R45.4 Active 51788261 Problem Pain in right foot M79.671 Active 4 4904619 Problem Hx of cervical spine surgery Z98.89 A ctive 171828145 Problem Idiopathic peripheral neuropathy G60.9 Active 90239512 Problem Low back pain M54.5 Active 584362 005 Problem Pure hypercholesterolemia E78.00 Acti ve 162224557 Problem Psychophysiological insomnia F51.04 A ctive 428455905 Problem 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 Active 865314423 Problem Unspecified mood [affective] disorder F39 Active 823067313 Problem Other stimulant dependence, 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 Active 177469246 Problem Marijuana abuse F12.10 Active 3734 4009 Problem Drug-induced erectile dysfunction N52.2 Active 938031496 Problem Cannabis dependence, uncomplicated F12.20 Active 66740060 Problem Candidal dermatitis B37.2 Active 06828513 Problem Gastroesophageal reflux disease with esophagitis K 21.0 Active 819793320 Problem Pain in right knee M25.561 Active 3 [id number] Problem Wheezing R06.2 Active 11706915 Problem Mood disorder F39 Active 091070 05 Problem Acute left-sided low back pain with left-sided sciatica M54.42 Active 322096183 Problem Mixed hyperlipidemia E78.2 Active 158044048 Problem Chronic maxillary sinusitis J32.0 Ac tive 30264493 Problem Essential hypertension I10 Active 96453903 Problem Anxiety disorder, unspecified F41.9 Active 260485629 Problem Other chronic pain G89.29 Active 8 5881152 Problem Primary osteoarthritis of left hip M16.12 Active 631859206 Problem Anxiety F41.9 Active 12715966 Problem Polydipsia R63.1 Active 75727652 ALLERGIES No Information ENCOUNTERS Encounter Location Date Diagnosis [place] [address] [address] Oct, Pre-procedural laboratory examination Z0 1.812 [place] [address] [address] Oct, Chronic maxillary sinusitis J32.0 [place] [address] [address] Oct, Sinus disease J34.9 [place] [address] [address] Oct, [place] [address] [address] Oct, Acute left-sided low back pain with left -sided sciatica M54.42 and Closed fracture of nasal bone with routine healing, subsequent encounter S02.2XXD [place] [address] [address] Sep, [place] [address] [address] Aug, Encounter for immunization Z23 and Nasal pain J34.89 [place] [address] [address] Jul, Separation of left acromioclavicular marco nt, initial encounter S43.102A [place] [address] [address] March, [place] [address] [address] March, Essential hypertension I10 [place] [address] [address] March, [place] [address] [address] Feb, [place] [address] [address] 17 Feb, 2019 [place] [address] [address] Feb, [place] [address] [address] Feb, Prediabetes R73.03 [place] [address] [address] Jan, [place] [address] [address] Jan, [place] [address] [address] Jan, Polydipsia R63.1 ; Peripheral edema R60. 9 ; Pre-diabetes R73.03 and Tongue lesion K14.8 [place] [address] [address] Sep, Other chronic pain G89.29 [place] [address] [address] Sep, Acute low back pain, unspecified back pa in laterality, with sciatica presence unspecified M54.5 [place] [address] [address] Sep, Low vitamin D level R79.89 [place] [address] [address] Aug, Acute low back pain, unspecified back pa in laterality, with sciatica presence unspecified M54.5 and Primary osteoarthritis of left hip M16.12 [place] [address] [address] Aug, [place] [address] [address] Jun, [place] [address] [address] Jun, Other chronic pain G89.29 and Pain in ri ght knee M25.561 [facility] [place] [address] [address] May, Primary osteoarthritis of left hip M16.1 2 ; Pain in left hip M25.552 ; Other acute postprocedural pain G89.18 and Anxiety F41.9 [facility] [place] [address] [address] May, [facility] [place] [address] [address] Apr, Pain in right knee M25.561 and Mood diso rder F39 [facility] [place] [address] [address] Apr, [facility] [address] [id number] March, [facility] [address] [id number] March, Encounter for dental exam and cleaning w /o abnormal findings Z01.20 [facility] [address] [id number] March, Dental examination Z01.20 [facility] [address] [id number] March, Dental examination Z01.20 [facility] [place] [address] [address] March, [facility] [place] [address] [address] March, [facility] [place] [address] [address] Feb, [facility] [place] [address] [address] Feb, Primary osteoarthritis of left hip M16.1 2 [facility] [place] [address] [address] Feb, Other chronic pain G89.29 and Pain in le ft hip M25.552 [facility] [place] [address] [address] Feb, Acute pain of left hip M25.552 [place] [address] [address] Feb, Mood disorder F39 and Pain in right knee M25.561 [facility] [place] [address] [address] Jan, Other chronic pain G89.29 [place] [address] [address] Jan, Mood disorder F39 [place] [address] [address] Jan, Pain in right knee M25.561 [place] [address] [address] Jan, Pain in left hip M25.552 and Other chron ic pain G89.29 [place] [address] [address] Jan, Acute pain of left hip M25.552 [place] [address] [address] Jan, Acute pain of left hip M25.552 [place] [address] [address] Jan, Mood disorder F39 and Acute pain of left hip M25.552 [place] [address] [address] Nov, Mood disorder F39 [place] [address] [address] Oct, Essential hypertension I10 ; Mixed hyper lipidemia E78.2 and Low back pain M54.5 [facility] [id number] [place] [id number] May, [place] [address] [address] Apr, Essential hypertension I10 ; Anger R45.4 ; Mixed hyperlipidemia E78.2 ; Drug-induced erectile dysfunction N52.2 ; Gastroesophageal reflux disease with esophagitis K21.0 ; Pure hypercholesterolemia E78.00 ; Pain in right knee M25.561 ; Psychophysiological insomnia F51.04 and Wheezing R06.2 [place] [address] [address] March, Hx of cervical spine surgery Z98.89 [place] [address] [address] March, [place] [address] [address] Feb, Anxiety associated with depression F41.8 [place] [address] [address] Jan, Anxiety associated with depression F41.8 [place] [address] [address] Dec, [place] [address] [address] Dec, [place] [address] [address] Dec, Essential hypertension I10 ; Erectile dy sfunction, unspecified erectile dysfunction type N52.9 and Hyperlipemia E78.5 [place] [address] [address] Nov, Essential hypertension I10 ; Hx of cervi pierre spine surgery Z98.89 ; Erectile dysfunction, unspecified erectile dysfunction type N52.9 ; Idiopathic peripheral neuropathy G60.9 ; Anger R45.4 ; Anxiety associated with depression F41.8 ; Hyperlipemia E78.5 ; Wheezing R06.2 and Has daytime drowsiness R40.0 [place] [address] [address] Nov, [place] [address] [address] Nov, [place] [address] [address] Sep, [place] [address] [address] Sep, Acute midline low back pain without scia peace M54.5 [place] [address] [address] Sep, Acute bilateral low back pain without sc iatica M54.5 [place] [address] [address] Aug, [place] [address] [address] Jun, Wheezing R06.2 ; Candidal dermatitis B37 .2 ; Essential hypertension I10 ; Erectile dysfunction, unspecified erectile dysfunction type N52.9 ; Idiopathic peripheral neuropathy G60.9 ; Mixed hyperlipidemia E78.2 and Other stimulant dependence, 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 [place] [address] [address] March, Essential hypertension I10 ; Hx of cervi pierre spine surgery Z98.89 ; Idiopathic peripheral neuropathy G60.9 ; Mixed hyperlipidemia E78.2 ; Anger R45.4 ; Drug-induced erectile dysfunction N52.2 and Gastroesophageal reflux disease with esophagitis K21.0 [place] [address] [address] Feb, [place] [address] [address] Dec, Low back pain M54.5 [place] [address] [address] Dec, [place] [address] [address] Dec, Unspecified mood [affective] disorder F3 9 ; Anxiety disorder, unspecified F41.9 ; Other stimulant dependence, 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 and Cannabis dependence, uncomplicated F12.20 [place] [address] [address] 09 Dec, 2015 Essential hypertension I10 ; Hyperlipemi a E78.5 ; Erectile dysfunction, unspecified erectile dysfunction type N52.9 ; Anger R45.4 ; Mixed hyperlipidemia E78.2 ; Anxiety associated with depression F41.8 ; Elevated serum creatinine R79.89 ; 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 and Marijuana abuse F12.10 [place] [id number] Oct, Essential hypertension I10 ; Idiopathic peripheral neuropathy G60.9 ; Low back pain M54.5 ; Hx of cervical spine surgery Z98.89 ; Erectile dysfunction, unspecified erectile dysfunction type N52.9 ; Anger R45.4 ; Mixed hyperlipidemia E78.2 and Anxiety associated with depression F41.[address] [address] Oct, Unspecified mood [affective] disorder F3 9 and Anxiety disorder, unspecified F41.[address] [address] Oct, Hyperlipemia E78.[address] [address] Oct, Essential hypertension I10 [address] [address] Oct, [place] [address] Oct, Essential hypertension I10 ; Idiopathic peripheral neuropathy G60.9 ; Low back pain M54.5 ; Hx of cervical spine surgery Z98.89 ; Pain in right hand M79.641 ; Pain of left hand M79.642 ; Pain in left foot M79.672 ; Pain in right foot M79.671 ; Erectile dysfunction, unspecified erectile dysfunction type N52.9 and Anger R45.[address] [address] Sep, [place] [id number] [place] [address] Jul, [facility] [address] [id number] [place] [address] Jun, [facility] [address] [id number] [place] [address] May, [facility] [address] [id number] [place] [address] Apr, [facility] [address] [id number] [place] [address] March, [facility] [address] [id number] [place] [address] Feb, [facility] [address] [id number] [place] [address] Feb, [facility] [address] [place] [id number] [place] [address] Jan, [facility] [address] [id number] [place] [address] Jan, [facility] [address] [id number] [place] [address] Nov, [facility] [address] [id number] [place] [address] Nov, [facility] [address] [place] [id number] [place] [address] Nov, [facility] [address] [id number] [place] [address] Nov, [facility] [address] [id number] [place] [address] Nov, [facility] [address] [place] [id number] [place] [address] Nov, [facility] [address] [id number] [place] [address] Oct, [facility] [address] [id number] [place] [address] Oct, [facility] [address] [id number] [place] [address] Oct, [facility] [address] [id number] [place] [address] Oct, [facility] [address] [id number] [place] [address] Sep, [facility] [address] [id number] [place] [address] Sep, [facility] [address] [id number] [place] [address] Sep, [facility] [address] [id number] [place] [address] Sep, [facility] [address] [id number] [place] [address] Sep, [facility] [address] [id number] [place] [address] 16 Aug, 2014 [facility] [address] [id number] [place] [address] 16 Aug, 2014 [facility] [address] [id number] [place] [address] 15 Aug, 2014 [facility] [address] [id number] [place] [address] 15 Aug, 2014 [facility] [address] [id number] [place] [address] 15 Aug, 2014 [facility] [address] [id number] [place] [address] 15 Aug, 2014 [facility] [address] [id number] [place] [address] 13 Aug, 2014 [facility] [address] [id number] [place] [address] 07 Aug, 2014 [facility] [address] [id number] [place] [address] 07 Aug, 2014 [facility] [address] [id number] [place] [address] Aug, [facility] [address] [id number] [place] [address] Aug, [facility] [address] [id number] [place] [address] Jul, [facility] [address] [id number] [place] [address] Jul, [facility] [address] [id number] [place] [address] Jul, [facility] [address] [id number] [place] [address] Jul, [facility] [address] [id number] [place] [address] Jun, [facility] [address] [id number] [place] [address] Jun, [facility] [address] [id number] [place] [address] Jun, [facility] [address] [id number] [place] [address] Jun, [facility] [address] [id number] [place] [address] Jun, [facility] [address] [id number] [place] [address] Jun, [facility] [address] [id number] [place] [address] May, [facility] [address] [id number] [place] [address] May, [facility] [address] [id number] [place] [address] May, [facility] [address] [id number] [place] [address] May, [facility] [address] [facility] [id number] [place] [id number] May, [facility] [address] [id number] [place] [address] May, [facility] [address] [id number] [place] [address] May, [facility] [address] [id number] [place] [address] May, [facility] [address] [id number] [place] [address] May, [facility] [address] [id number] [place] [address] May, [facility] [address] [id number] [place] [address] May, [facility] [address] [id number] [place] [address] May, [facility] [address] [id number] [place] [address] Apr, [facility] [address] [id number] [place] [address] Apr, [facility] [address] [id number] [place] [address] March, [facility] [address] [id number] [place] [address] March, [facility] [address] [id number] [place] [address] March, [facility] [address] [id number] [place] [address] March, [facility] [address] [id number] [place] [address] Feb, [facility] [address] [id number] [place] [address] Feb, [facility] [address] [id number] [place] [address] Jan, [facility] [address] [id number] [place] [address] Jan, [facility] [address] [id number] [place] [address] Jan, [facility] [address] [id number] [place] [address] Jan, [facility] [address] [id number] [place] [address] Dec, [facility] [address] [id number] [place] [address] Dec, [facility] [address] [id number] [place] [address] Nov, [facility] [address] [id number] [place] [address] Nov, [facility] [address] [id number] [place] [address] Nov, [facility] [address] [id number] [place] [address] Nov, [facility] [address] [id number] [place] [address] Oct, [facility] [address] [id number] [place] [address] Oct, [facility] [address] [id number] [place] [address] Sep, [facility] [address] [id number] [place] [address] Sep, [facility] [address] [id number] [place] [address] Jul, [facility] [address] [id number] [place] [address] 19 Jul, 2013 [facility] [address] [id number] [place] [address] Jul, [facility] [address] [id number] [place] [address] Jun, [facility] [address] [id number] [place] [address] Jun, [facility] [address] [id number] [place] [address] May, [facility] [address] [id number] [facility] [address] May, [facility] [address] [id number] [place] [address] May, [facility] [address] [id number] [place] [address] March, [facility] [address] [id number] [place] [address] Jan, [facility] [address] [id number] [place] [address] Jan, [facility] [address] [id number] [place] [address] Jan, [facility] [address] [id number] [place] [address] Dec, [facility] [address] [id number] [place] [address] May, [facility] [address] [id number] [place] [address] March, [facility] [address] [id number] [place] [address] Jan, [facility] [address] [id number] [place] [address] 14 Aug, 2011 [facility] [address] [id number] [place] [address] Aug, [facility] [address] [id number] [place] [address] Aug, [facility] [address] [id number] [place] [address] Jun, [facility] [address] [id number] [place] [address] 14 May, 2011 [facility] [address] [id number] [place] [address] Oct, IMMUNIZATIONS No Known Immunizations SOCIAL HISTORY [...]
--- OUTSIDE RECORDS SUMMARY | 2020-02-05 10:57 | XMS REPORT ---
Author Author Jelani BHANDARI Organization [facility] Address [address] [place] [address] Care Team Providers Care Hand Edge Bander Name Role Phone BÁRBARA BHANDARI Unavailable PROBLEMS Type Condition ICD9-CM Code SLN10-LF Code Onset Dates Condition S tatus SNOMED Code Problem Erectile dysfunction, unspecified erectile dysfunction typ e N52.9 Active 808743897 Problem Anger R45.4 Active 39305169 Problem Pain in right foot M79.671 Active 4 1085783 Problem Hx of cervical spine surgery Z98.89 A ctive 846167587 Problem Idiopathic peripheral neuropathy G60.9 Active 91580197 Problem Low back pain M54.5 Active 536732 005 Problem Pure hypercholesterolemia E78.00 Acti ve 035249136 Problem Psychophysiological insomnia F51.04 A ctive 960223298 Problem 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 Active 546151613 Problem Unspecified mood [affective] disorder F39 Active 859113779 Problem Other stimulant dependence, 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 Active 676685210 Problem Marijuana abuse F12.10 Active 3734 4009 Problem Drug-induced erectile dysfunction N52.2 Active 936107596 Problem Cannabis dependence, uncomplicated F12.20 Active 24944472 Problem Candidal dermatitis B37.2 Active 45861216 Problem Gastroesophageal reflux disease with esophagitis K 21.0 Active 831056388 Problem Pain in right knee M25.561 Active 3 [id number] Problem Wheezing R06.2 Active 14076346 Problem Mood disorder F39 Active 049753 05 Problem Acute left-sided low back pain with left-sided sciatica M54.42 Active 714176926 Problem Mixed hyperlipidemia E78.2 Active 987109217 Problem Chronic maxillary sinusitis J32.0 Ac tive 84832938 Problem Essential hypertension I10 Active 51535360 Problem Anxiety disorder, unspecified F41.9 Active 850272925 Problem Other chronic pain G89.29 Active 8 4244742 Problem Primary osteoarthritis of left hip M16.12 Active 341096943 Problem Anxiety F41.9 Active 61014870 Problem Polydipsia R63.1 Active 17235900 ALLERGIES No Information ENCOUNTERS Encounter Location Date Diagnosis [place] [address] [address] Dec, [facility] [address] [address] 18 Dec, 2019 [facility] [address] [address] Dec, [place] [address] [address] Dec, Pain in right knee M25.561 ; Mixed hyper lipidemia E78.2 ; Unspecified mood [affective] disorder F39 ; Essential hypertension I10 and Encounter for immunization Z23 [place] [address] [address] Dec, [facility] [address] [facility] [id number] [place] [address] Dec, Acute pain of right knee M25 .561 [place] [address] [address] Oct, Pre-procedural laboratory examination Z0 1.812 [place] [address] [address] Oct, Chronic maxillary sinusitis J32.0 [place] [address] [address] Oct, Sinus disease J34.9 [place] [address] [address] Oct, [place] [address] [address] Oct, Acute left-sided low back pain with left -sided sciatica M54.42 and Closed fracture of nasal bone with routine healing, subsequent encounter S02.2XXD [place] [address] [address] Sep, [facility] [address] [address] Aug, Encounter for immunization Z23 and Nasal pain J34.89 [facility] [address] [address] 24 Jul, 2019 Separation of left acromioclavicular marco nt, initial encounter S43.102A [place] [address] [address] March, [facility] [address] [address] March, Essential hypertension I10 [place] [address] [address] March, [facility] [address] [address] Feb, [facility] [address] [address] Feb, [facility] [address] [address] Feb, [place] [address] [address] 15 Feb, 2019 Prediabetes R73.03 [place] [address] [address] Jan, [facility] [address] [address] Jan, [facility] [address] [address] 13 Jan, 2019 Polydipsia R63.1 ; Peripheral edema R60. 9 ; Pre-diabetes R73.03 and Tongue lesion K14.8 [facility] [address] [address] Sep, Other chronic pain G89.29 [facility] [address] [address] Sep, Acute low back pain, unspecified back pa in laterality, with sciatica presence unspecified M54.5 [place] [address] [address] Sep, Low vitamin D level R79.89 [place] [address] [address] Aug, Acute low back pain, unspecified back pa in laterality, with sciatica presence unspecified M54.5 and Primary osteoarthritis of left hip M16.12 [place] [address] [address] Aug, [place] [address] [address] Jun, [place] [address] [address] Jun, Other chronic pain G89.29 and Pain in ri ght knee M25.561 [place] [address] [address] May, Primary osteoarthritis of left hip M16.1 2 ; Pain in left hip M25.552 ; Other acute postprocedural pain G89.18 and Anxiety F41.9 [place] [address] [address] May, [place] [address] [address] Apr, Pain in right knee M25.561 and Mood diso rder F39 [place] [address] [address] Apr, [facility] [address] [id number] March, [facility] [address] [id number] March, Encounter for dental exam and cleaning w /o abnormal findings Z01.20 [facility] [address] [place] [id number] March, Dental examination Z01.20 [facility] [address] [id number] March, Dental examination Z01.20 [facility] [address] [address] March, [facility] [address] [address] March, [facility] [address] [address] Feb, [facility] [address] [address] Feb, Primary osteoarthritis of left hip M16.1 2 [facility] [address] [address] Feb, Other chronic pain G89.29 and Pain in le ft hip M25.552 [facility] [address] [address] Feb, Acute pain of left hip M25.552 [facility] [address] [address] Feb, Mood disorder F39 and Pain in right knee M25.561 [facility] [address] [address] Jan, Other chronic pain G89.29 [facility] [address] [address] Jan, Mood disorder F39 [facility] [address] [address] Jan, Pain in right knee M25.561 [facility] [address] [address] Jan, Pain in left hip M25.552 and Other chron ic pain G89.29 [facility] [address] [address] Jan, Acute pain of left hip M25.552 [facility] [address] [address] Jan, Acute pain of left hip M25.552 [facility] [address] [address] 08 Jan, 2018 Mood disorder F39 and Acute pain of left hip M25.552 [place] [address] [address] Nov, Mood disorder F39 [place] [address] [address] Oct, Essential hypertension I10 ; Mixed hyper lipidemia E78.2 and Low back pain M54.5 [place] [address] [place] [id number] [place] [id number] May, [place] [address] [address] Apr, Essential hypertension I10 ; Anger R45.4 ; Mixed hyperlipidemia E78.2 ; Drug-induced erectile dysfunction N52.2 ; Gastroesophageal reflux disease with esophagitis K21.0 ; Pure hypercholesterolemia E78.00 ; Pain in right knee M25.561 ; Psychophysiological insomnia F51.04 and Wheezing R06.2 [place] [address] [address] March, Hx of cervical spine surgery Z98.89 [place] [address] [address] March, [place] [address] [address] Feb, Anxiety associated with depression F41.8 [place] [address] [address] Jan, Anxiety associated with depression F41.8 [place] [address] [address] Dec, [place] [address] [address] Dec, [place] [address] [address] Dec, Essential hypertension I10 ; Erectile dy sfunction, unspecified erectile dysfunction type N52.9 and Hyperlipemia E78.5 [place] [address] [address] Nov, Essential hypertension I10 ; Hx of cervi pierre spine surgery Z98.89 ; Erectile dysfunction, unspecified erectile dysfunction type N52.9 ; Idiopathic peripheral neuropathy G60.9 ; Anger R45.4 ; Anxiety associated with depression F41.8 ; Hyperlipemia E78.5 ; Wheezing R06.2 and Has daytime drowsiness R40.0 [place] [address] [address] Nov, [place] [address] [address] Nov, [place] [address] [address] Sep, [place] [address] [address] Sep, Acute midline low back pain without scia peace M54.5 [place] [address] [address] Sep, Acute bilateral low back pain without sc iatica M54.5 [place] [address] [address] Aug, [place] [address] [address] Jun, Wheezing R06.2 ; Candidal dermatitis B37 .2 ; Essential hypertension I10 ; Erectile dysfunction, unspecified erectile dysfunction type N52.9 ; Idiopathic peripheral neuropathy G60.9 ; Mixed hyperlipidemia E78.2 and Other stimulant dependence, 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 [place] [address] [address] March, Essential hypertension I10 ; Hx of cervi pierre spine surgery Z98.89 ; Idiopathic peripheral neuropathy G60.9 ; Mixed hyperlipidemia E78.2 ; Anger R45.4 ; Drug-induced erectile dysfunction N52.2 and Gastroesophageal reflux disease with esophagitis K21.0 [place] [address] [address] Feb, [place] [address] [place] [address] Dec, Low back pain M54.[address] [address] Dec, [address] [address] Dec, Unspecified mood [affective] disorder F3 9 ; Anxiety disorder, unspecified F41.9 ; Other stimulant dependence, 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 and Cannabis dependence, uncomplicated F12.[address] [address] Dec, Essential hypertension I10 ; Hyperlipemi a E78.5 ; Erectile dysfunction, unspecified erectile dysfunction type N52.9 ; Anger R45.4 ; Mixed hyperlipidemia E78.2 ; Anxiety associated with depression F41.8 ; Elevated serum creatinine R79.89 ; 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 and Marijuana abuse F12.[address] [address] Oct, Essential hypertension I10 ; Idiopathic peripheral neuropathy G60.9 ; Low back pain M54.5 ; Hx of cervical spine surgery Z98.89 ; Erectile dysfunction, unspecified erectile dysfunction type N52.9 ; Anger R45.4 ; Mixed hyperlipidemia E78.2 and Anxiety associated with depression F41.8 [place] [address] [address] Oct, Unspecified mood [affective] disorder F3 9 and Anxiety disorder, unspecified F41.9 [place] [address] Oct, Hyperlipemia E78.5 [facility] [address] [address] Oct, Essential hypertension I10 [facility] [address] [address] Oct, [facility] [address] [address] Oct, Essential hypertension I10 ; Idiopathic peripheral neuropathy G60.9 ; Low back pain M54.5 ; Hx of cervical spine surgery Z98.89 ; Pain in right hand M79.641 ; Pain of left hand M79.642 ; Pain in left foot M79.672 ; Pain in right foot M79.671 ; Erectile dysfunction, unspecified erectile dysfunction type N52.9 and Anger R45.4 [facility] [address] [address] Sep, [facility] [address] [address] Jul, [facility] [address] [address] Jun, [facility] [address] [address] May, [facility] [address] [address] Apr, [facility] [address] [address] March, [facility] [address] [address] Feb, [facility] [address] [address] Feb, [facility] [address] [address] Jan, [facility] [address] [address] Jan, [facility] [address] [id number] [place] [address] Nov, [facility] [address] [id number] [place] [address] Nov, [facility] [address] [id number] [place] [address] Nov, [facility] [address] [id number] [place] [address] Nov, [facility] [address] [id number] [place] [address] Nov, [facility] [address] [id number] [place] [address] Nov, [facility] [address] [id number] [place] [address] Oct, [facility] [address] [id number] [place] [address] Oct, [facility] [address] [id number] [place] [address] Oct, [facility] [address] [id number] [place] [address] Oct, [facility] [address] [id number] [place] [address] Sep, [facility] [address] [id number] [place] [address] Sep, [facility] [address] [id number] [place] [address] Sep, [facility] [address] [id number] [place] [address] Sep, [facility] [address] [place] [id number] [place] [address] Sep, [facility] [address] [id number] [place] [address] Aug, [facility] [address] [id number] [place] [address] 16 Aug, 2014 [facility] [address] [facility] [id number] [place] [address] 15 Aug, 2014 [facility] [address] [facility] [id number] [place] [address] 15 Aug, 2014 [facility] [address] [id number] [place] [address] 15 Aug, 2014 [facility] [address] [facility] [id number] [place] [address] 15 Aug, 2014 [facility] [address] [facility] [id number] [place] [address] 13 Aug, 2014 [facility] [address] [id number] [place] [address] 07 Aug, 2014 [facility] [address] [id number] [place] [address] 07 Aug, 2014 [facility] [address] [id number] [place] [address] 06 Aug, 2014 [facility] [address] [facility] [id number] [place] [address] 06 Aug, 2014 [facility] [address] [id number] [place] [address] 19 Jul, 2014 [facility] [address] [id number] [place] [address] 19 Jul, 2013 [facility] [address] [id number] [place] [address] 18 Jul, 2013 [facility] [address] [facility] [id number] [place] [address] 18 Jul, 2013 [facility] [address] [id number] [place] [address] Jun, [facility] [address] [id number] [place] [address] Jun, [facility] [address] [id number] [place] [address] Jun, 2013 [facility] [address] [id number] [facility] [place] [address] Jun, 2013 [facility] [address] [facility] [id number] [facility] [place] [address] Jun, [facility] [address] [facility] [id number] [place] [address] Jun, [facility] [address] [facility] [id number] [facility] [place] [address] May, [facility] [address] [facility] [id number] [place] [address] May, [facility] [address] [facility] [id number] [facility] [place] [address] May, [facility] [address] [facility] [id number] [place] [address] May, [facility] [address] [facility] [id number] [place] [id number] May, [facility] [address] [id number] [place] [address] May, [facility] [address] [facility] [id number] [place] [address] May, [facility] [address] [id number] [place] [address] May, [facility] [address] [id number] [place] [address] May, [facility] [address] [id number] [facility] [place] [address] May, [facility] [address] [facility] [id number] [place] [address] May, [facility] [address] [id number] [place] [address] May, [facility] [address] [id number] [place] [address] Apr, [facility] [address] [id number] [place] [address] Apr, [facility] [address] [id number] [place] [address] March, [facility] [address] [id number] [place] [address] March, [facility] [address] [id number] [place] [address] March, [facility] [address] [id number] [place] [address] March, [facility] [address] [id number] [place] [address] Feb, [facility] [address] [id number] [place] [address] Feb, [facility] [address] [id number] [place] [address] Jan, [facility] [address] [id number] [place] [address] Jan, [facility] [address] [id number] [place] [address] Jan, [facility] [address] [id number] [place] [address] Jan, [facility] [address] [id number] [place] [address] Dec, [facility] [address] [id number] [place] [address] Dec, [facility] [address] [id number] [place] [address] Nov, [facility] [address] [id number] [place] [address] Nov, [facility] [address] [id number] [place] [address] Nov, [facility] [address] [id number] [place] [address] Nov, [facility] [address] [id number] [place] [address] Oct, [facility] [address] [id number] [place] [address] Oct, [facility] [address] [id number] [place] [address] Sep, [facility] [address] [id number] [place] [address] Sep, [facility] [address] [id number] [place] [address] Jul, [facility] [address] [facility] [id number] [place] [address] Jul, [facility] [address] [id number] [place] [address] Jul, [facility] [address] [id number] [place] [address] Jun, [facility] [address] [id number] [place] [address] Jun, [facility] [address] [id number] [place] [address] May, [facility] [address] [id number] [place] [address] May, [facility] [address] [id number] [place] [address] May, [facility] [address] [id number] [place] [address] March, [facility] [address] [id number] [place] [address] Jan, [facility] [address] [id number] [place] [address] Jan, [facility] [address] [id number] [place] [address] Jan, [facility] [address] [id number] [place] [address] Dec, [facility] [address] [id number] [place] [address] 16 May, 2012 [facility] [address] [place] [id number] [place] [address] March, [facility] [address] [place] [id number] [place] [address] Jan, [facility] [address] [address] Aug, [facility] [address] [address] Aug, [facility] [address] [address] Aug, [facility] [address] [address] Jun, [facility] [address] [address] May, [facility] [address] [place] [id number] [place] [address] Oct, IMMUNIZATIONS No Known Immunizations SOCIAL HISTORY [...]
--- OUTSIDE RECORDS SUMMARY | 2020-02-05 10:58 | XMS REPORT ---
Author Author Jelani Craig Organization [facility] Address [address] [place] [address] Care Team Providers Care Sap Abap Developer Name Role Phone KRISTEL Craig Unavailable PROBLEMS Type Condition ICD9-CM Code ZLG51-PL Code Onset Dates Condition S tatus SNOMED Code Problem Anger R45.4 Active 47248194 Problem Hx of cervical spine surgery Z98.89 A ctive 789326951 Problem Idiopathic peripheral neuropathy G60.9 Active 79629432 Problem Erectile dysfunction, unspecified erectile dysfunction typ e N52.9 Active 719580302 Problem Pain in right foot M79.671 Active 4 1679922 Problem Essential hypertension I10 Active 74940878 Problem Pure hypercholesterolemia E78.00 Acti ve 796058400 Problem Psychophysiological insomnia F51.04 A ctive 443600836 Problem 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 Active 983201083 Problem Anxiety disorder, unspecified F41.9 Active 549602417 Problem Other stimulant dependence, 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 Active 647417824 Problem Marijuana abuse F12.10 Active 3734 4009 Problem Drug-induced erectile dysfunction N52.2 Active 691331631 Problem Cannabis dependence, uncomplicated F12.20 Active 83132000 Problem Candidal dermatitis B37.2 Active 67694683 Problem Gastroesophageal reflux disease with esophagitis K 21.0 Active 880629817 Problem Pain in right knee M25.561 Active 3 93153320050909 Problem Wheezing R06.2 Active 41074394 Problem Mood disorder F39 Active 693892 05 Problem Acute left-sided low back pain with left-sided sciatica M54.42 Active 906571824 Problem Mixed hyperlipidemia E78.2 Active 300717461 Problem Chronic maxillary sinusitis J32.0 Ac tive 17050091 Problem Low back pain M54.5 Active 073609 005 Problem Unspecified mood [affective] disorder F39 Active 975289348 Problem Other chronic pain G89.29 Active 8 8888434 Problem Primary osteoarthritis of left hip M16.12 Active 593203068 Problem Anxiety F41.9 Active 52842074 Problem Polydipsia R63.1 Active 78756740 ALLERGIES No Information ENCOUNTERS Encounter Location Date Diagnosis [place] [address] [address] Oct, Pre-procedural laboratory examination Z0 1.812 [place] [address] [address] Oct, Chronic maxillary sinusitis J32.0 [place] [address] [address] Oct, Sinus disease J34.9 [place] [address] [address] Oct, [place] [address] [address] Oct, Acute left-sided low back pain with left -sided sciatica M54.42 and Closed fracture of nasal bone with routine healing, subsequent encounter S02.2XXD [place] [address] [address] Sep, [place] [address] [address] Aug, Encounter for immunization Z23 and Nasal pain J34.89 [place] [address] [address] Jul, Separation of left acromioclavicular marco nt, initial encounter S43.102A [place] [address] [address] March, [place] [address] [address] March, Essential hypertension I10 [place] [address] [address] March, [place] [address] [address] Feb, [place] [address] [address] Feb, [place] [address] [address] Feb, [place] [address] [address] Feb, Prediabetes R73.03 [place] [address] [address] Jan, [place] [address] [address] Jan, [place] [address] [address] Jan, Polydipsia R63.1 ; Peripheral edema R60. 9 ; Pre-diabetes R73.03 and Tongue lesion K14.8 [place] [address] [address] Sep, Other chronic pain G89.29 [place] [address] [address] Sep, Acute low back pain, unspecified back pa in laterality, with sciatica presence unspecified M54.5 [place] [address] [address] Sep, Low vitamin D level R79.89 [place] [address] [address] Aug, Acute low back pain, unspecified back pa in laterality, with sciatica presence unspecified M54.5 and Primary osteoarthritis of left hip M16.12 [place] [address] [address] Aug, [place] [address] [address] Jun, [place] [address] [address] Jun, Other chronic pain G89.29 and Pain in ri ght knee M25.561 [facility] [address] [address] May, Primary osteoarthritis of left hip M16.1 2 ; Pain in left hip M25.552 ; Other acute postprocedural pain G89.18 and Anxiety F41.9 [facility] [address] [address] May, [facility] [address] [address] Apr, Pain in right knee M25.561 and Mood diso rder F39 [facility] [address] [address] Apr, [facility] [address] [id number] March, [facility] [address] [id number] March, Encounter for dental exam and cleaning w /o abnormal findings Z01.20 [facility] [address] [id number] March, Dental examination Z01.20 [facility] [address] [id number] March, Dental examination Z01.20 [facility] [address] [address] March, [facility] [address] [address] March, [facility] [address] [address] Feb, [facility] [address] [address] Feb, Primary osteoarthritis of left hip M16.1 2 [facility] [address] [address] Feb, Other chronic pain G89.29 and Pain in le ft hip M25.552 [facility] [address] [address] Feb, Acute pain of left hip M25.552 [facility] [address] [address] Feb, Mood disorder F39 and Pain in right knee M25.561 [facility] [address] [address] Jan, Other chronic pain G89.29 [place] [address] [address] Jan, Mood disorder F39 [place] [address] [address] Jan, Pain in right knee M25.561 [place] [address] [address] Jan, Pain in left hip M25.552 and Other chron ic pain G89.29 [place] [address] [address] Jan, Acute pain of left hip M25.552 [place] [address] [address] Jan, Acute pain of left hip M25.552 [place] [address] [address] Jan, Mood disorder F39 and Acute pain of left hip M25.552 [place] [address] [address] Nov, Mood disorder F39 [place] [address] [address] Oct, Essential hypertension I10 ; Mixed hyper lipidemia E78.2 and Low back pain M54.5 [facility] [id number] [place] [id number] May, [place] [address] [address] Apr, Essential hypertension I10 ; Anger R45.4 ; Mixed hyperlipidemia E78.2 ; Drug-induced erectile dysfunction N52.2 ; Gastroesophageal reflux disease with esophagitis K21.0 ; Pure hypercholesterolemia E78.00 ; Pain in right knee M25.561 ; Psychophysiological insomnia F51.04 and Wheezing R06.2 [place] [address] [place] [id number] March, Hx of cervical spine surgery Z98.89 [place] [address] [place] [id number] March, [place] [address] [place] [id number] Feb, Anxiety associated with depression F41.8 [place] [address] [address] Jan, Anxiety associated with depression F41.8 [place] [address] [address] Dec, [place] [address] [address] Dec, [place] [address] [address] Dec, Essential hypertension I10 ; Erectile dy sfunction, unspecified erectile dysfunction type N52.9 and Hyperlipemia E78.5 [place] [address] [address] Nov, Essential hypertension I10 ; Hx of cervi pierre spine surgery Z98.89 ; Erectile dysfunction, unspecified erectile dysfunction type N52.9 ; Idiopathic peripheral neuropathy G60.9 ; Anger R45.4 ; Anxiety associated with depression F41.8 ; Hyperlipemia E78.5 ; Wheezing R06.2 and Has daytime drowsiness R40.0 [place] [address] [address] Nov, [place] [address] [address] Nov, [place] [address] [address] Sep, [place] [address] [address] Sep, Acute midline low back pain without scia peace M54.5 [place] [address] [address] Sep, Acute bilateral low back pain without sc iatica M54.5 [place] [address] [address] Aug, [place] [address] [address] Jun, Wheezing R06.2 ; Candidal dermatitis B37 .2 ; Essential hypertension I10 ; Erectile dysfunction, unspecified erectile dysfunction type N52.9 ; Idiopathic peripheral neuropathy G60.9 ; Mixed hyperlipidemia E78.2 and Other stimulant dependence, 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 [place] [address] [address] March, Essential hypertension I10 ; Hx of cervi pierre spine surgery Z98.89 ; Idiopathic peripheral neuropathy G60.9 ; Mixed hyperlipidemia E78.2 ; Anger R45.4 ; Drug-induced erectile dysfunction N52.2 and Gastroesophageal reflux disease with esophagitis K21.0 [place] [address] [address] Feb, [place] [address] [address] Dec, Low back pain M54.5 [place] [address] [address] Dec, [place] [address] [address] 09 Dec, 2015 Essential hypertension I10 ; Hyperlipemi a E78.5 ; Erectile dysfunction, unspecified erectile dysfunction type N52.9 ; Anger R45.4 ; Mixed hyperlipidemia E78.2 ; Anxiety associated with depression F41.8 ; Elevated serum creatinine R79.89 ; 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 and Marijuana abuse F12.[address] [address] Dec, Unspecified mood [affective] disorder F3 9 ; Anxiety disorder, unspecified F41.9 ; Other stimulant dependence, 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 and Cannabis dependence, uncomplicated F12.[address] [address] Oct, Essential hypertension I10 ; Idiopathic peripheral neuropathy G60.9 ; Low back pain M54.5 ; Hx of cervical spine surgery Z98.89 ; Erectile dysfunction, unspecified erectile dysfunction type N52.9 ; Anger R45.4 ; Mixed hyperlipidemia E78.2 and Anxiety associated with depression F41.[address] [address] Oct, Unspecified mood [affective] disorder F3 9 and Anxiety disorder, unspecified F41.[address] [address] Oct, Hyperlipemia E78.[address] [address] Oct, Essential hypertension I10 [address] [address] Oct, [address] [address] Oct, Essential hypertension I10 ; Idiopathic peripheral neuropathy G60.9 ; Low back pain M54.5 ; Hx of cervical spine surgery Z98.89 ; Pain in right hand M79.641 ; Pain of left hand M79.642 ; Pain in left foot M79.672 ; Pain in right foot M79.671 ; Erectile dysfunction, unspecified erectile dysfunction type N52.9 and Anger R45.4 [place] [address] [address] Sep, [facility] [address] [id number] [place] [address] Jul, [facility] [address] [id number] [place] [address] Jun, [facility] [address] [id number] [place] [address] May, [facility] [address] [place] [id number] [place] [address] Apr, [facility] [address] [id number] [place] [address] March, [facility] [address] [id number] [place] [address] Feb, [facility] [address] [id number] [place] [address] Feb, [facility] [address] [place] [id number] [place] [address] Jan, [facility] [address] [place] [id number] [place] [address] Jan, [facility] [address] [id number] [place] [address] Nov, [facility] [address] [id number] [place] [address] Nov, [facility] [address] [place] [id number] [place] [address] Nov, [facility] [address] [id number] [place] [address] Nov, [facility] [address] [id number] [place] [address] Nov, [facility] [address] [place] [id number] [place] [address] Nov, [facility] [address] [id number] [place] [address] Oct, [facility] [address] [place] [id number] [place] [address] Oct, [facility] [address] [facility] [id number] [place] [address] Oct, [facility] [address] [facility] [id number] [place] [address] Oct, [facility] [address] [id number] [place] [address] Sep, [facility] [address] [id number] [place] [address] Sep, [facility] [address] [facility] [id number] [place] [address] Sep, [facility] [address] [id number] [place] [address] Sep, [facility] [address] [id number] [place] [address] Sep, [facility] [address] [id number] [place] [address] 16 Aug, 2014 [facility] [address] [id number] [place] [address] 16 Aug, 2014 [facility] [address] [id number] [place] [address] 15 Aug, 2014 [facility] [address] [id number] [place] [address] 15 Aug, 2014 [facility] [address] [id number] [place] [address] 15 Aug, 2014 [facility] [address] [id number] [place] [address] 15 Aug, 2014 [facility] [address] [id number] [place] [address] 13 Aug, 2014 [facility] [address] [id number] [place] [address] 07 Aug, 2014 [facility] [address] [id number] [place] [address] 07 Aug, 2014 [facility] [address] [id number] [place] [address] Aug, [facility] [address] [id number] [place] [address] Aug, [facility] [address] [id number] [place] [address] Jul, [facility] [address] [id number] [place] [address] Jul, [facility] [address] [id number] [place] [address] Jul, [facility] [address] [id number] [place] [address] Jul, [facility] [address] [id number] [place] [address] Jun, [facility] [address] [id number] [place] [address] Jun, [facility] [address] [id number] [place] [address] Jun, [facility] [address] [id number] [place] [address] Jun, [facility] [address] [id number] [place] [address] Jun, [facility] [address] [id number] [place] [address] Jun, [facility] [address] [id number] [place] [address] May, [facility] [address] [id number] [place] [address] May, [facility] [address] [id number] [place] [address] May, [facility] [address] [id number] [place] [address] May, [facility] [address] [id number] [place] [id number] May, [facility] [address] [id number] [place] [address] May, [facility] [address] [facility] [id number] [place] [address] May, [facility] [address] [id number] [place] [address] May, [facility] [address] [id number] [place] [address] May, [facility] [address] [facility] [id number] [place] [address] May, [facility] [address] [id number] [place] [address] May, [facility] [address] [id number] [place] [address] May, [facility] [address] [id number] [place] [address] Apr, [facility] [address] [id number] [place] [address] Apr, [facility] [address] [id number] [place] [address] March, [facility] [address] [id number] [place] [address] March, [facility] [address] [id number] [place] [address] March, [facility] [address] [id number] [place] [address] March, [facility] [address] [id number] [place] [address] Feb, [facility] [address] [id number] [place] [address] Feb, [facility] [address] [id number] [place] [address] Jan, [facility] [address] [id number] [place] [address] Jan, [facility] [address] [id number] [place] [address] Jan, [facility] [address] [id number] [place] [address] Jan, [facility] [address] [id number] [place] [address] Dec, [facility] [address] [id number] [place] [address] Dec, [facility] [address] [id number] [place] [address] Nov, [facility] [address] [id number] [place] [address] Nov, [facility] [address] [id number] [place] [address] Nov, [facility] [address] [id number] [place] [address] Nov, [facility] [address] [id number] [place] [address] Oct, [facility] [address] [id number] [place] [address] Oct, [facility] [address] [id number] [place] [address] Sep, [facility] [address] [id number] [place] [address] Sep, [facility] [address] [id number] [place] [address] Jul, [facility] [address] [id number] [place] [address] Jul, [facility] [address] [id number] [place] [address] Jul, [facility] [address] [id number] [place] [address] Jun, [facility] [address] [id number] [place] [address] Jun, [facility] [address] [id number] [place] [address] May, [facility] [address] [id number] [place] [address] May, [facility] [address] [id number] [place] [address] May, [facility] [address] [id number] [place] [address] March, [facility] [address] [id number] [place] [address] Jan, [facility] [address] [id number] [place] [address] Jan, [facility] [address] [id number] [place] [address] Jan, [facility] [address] [id number] [place] [address] Dec, [facility] [address] [id number] [place] [address] May, [facility] [address] [id number] [place] [address] March, [facility] [address] [id number] [place] [address] Jan, [facility] [address] [id number] [place] [address] 14 Aug, 2011 [facility] [address] [id number] [place] [address] Aug, [facility] [address] [place] [id number] [place] [address] Aug, [facility] [address] [id number] [place] [address] Jun, [facility] [address] [id number] [place] [address] 14 May, 2011 [facility] [address] [facility] [id number] [place] [address] Oct, IMMUNIZATIONS No Known Immunizations SOCIAL HISTORY [...]
--- OUTSIDE RECORDS SUMMARY | 2020-02-05 10:58 | XMS REPORT ---
Author Author Jelani Arambula Doctor Organization [facility] Address Unknown Phone Unavailable Care Team Providers Care Real Estate Processor Name Role Phone Migration, Doctor Unavailable Unavailable PROBLEMS Type Condition ICD9-CM Code [id number] Code Onset Dates Condition S tatus SNOMED Code Problem Erectile dysfunction, unspecified erectile dysfunction typ e N52.9 Active 199741421 Problem Anger R45.4 Active 34587294 Problem Pain in right foot M79.671 Active 4 4662788 Problem Hx of cervical spine surgery Z98.89 A ctive 311475681 Problem Idiopathic peripheral neuropathy G60.9 Active 20140952 Problem Low back pain M54.5 Active 236405 005 Problem Pure hypercholesterolemia E78.00 Acti ve 174455746 Problem Psychophysiological insomnia F51.04 A ctive 687383277 Problem 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 Active 241576938 Problem Unspecified mood [affective] disorder F39 Active 014158083 Problem Other stimulant dependence, 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 Active 426017133 Problem Marijuana abuse F12.10 Active 3734 4009 Problem Drug-induced erectile dysfunction N52.2 Active 618524357 Problem Cannabis dependence, uncomplicated F12.20 Active 00850733 Problem Candidal dermatitis B37.2 Active 49081050 Problem Gastroesophageal reflux disease with esophagitis K 21.0 Active 385429836 Problem Pain in right knee M25.561 Active 3 [id number] Problem Wheezing R06.2 Active 76987757 Problem Mood disorder F39 Active 505180 05 Problem Acute left-sided low back pain with left-sided sciatica M54.42 Active 771669218 Problem Mixed hyperlipidemia E78.2 Active 182159816 Problem Chronic maxillary sinusitis J32.0 Ac tive 51836202 Problem Essential hypertension I10 Active 82931266 Problem Anxiety disorder, unspecified F41.9 Active 436470359 Problem Other chronic pain G89.29 Active 8 6294941 Problem Primary osteoarthritis of left hip M16.12 Active 879623367 Problem Anxiety F41.9 Active 82937188 Problem Polydipsia R63.1 Active 70482131 ALLERGIES No Information ENCOUNTERS Encounter Location Date Diagnosis [facility] [address] [address] Oct, Pre-procedural laboratory examination Z0 1.812 [place] [address] [address] Oct, Chronic maxillary sinusitis J32.0 [place] [address] [address] Oct, Sinus disease J34.9 [place] [address] [address] Oct, [place] [address] [address] Oct, Acute left-sided low back pain with left -sided sciatica M54.42 and Closed fracture of nasal bone with routine healing, subsequent encounter S02.2XXD [place] [address] [address] Sep, [place] [address] [address] Aug, Encounter for immunization Z23 and Nasal pain J34.89 [place] [address] [address] Jul, Separation of left acromioclavicular marco nt, initial encounter S43.102A [place] [address] [address] March, [place] [address] [address] March, Essential hypertension I10 [place] [address] [address] March, [place] [address] [address] Feb, [place] [address] [address] Feb, [place] [address] [address] Feb, [place] [address] [address] Feb, Prediabetes R73.03 [place] [address] [address] 21 Jan, 2019 [place] [address] [address] 14 Jan, 2019 [place] [address] [address] 13 Jan, 2019 Polydipsia R63.1 ; Peripheral edema R60. 9 ; Pre-diabetes R73.03 and Tongue lesion K14.8 [place] [address] [address] Sep, Other chronic pain G89.29 [place] [address] [address] Sep, Acute low back pain, unspecified back pa in laterality, with sciatica presence unspecified M54.5 [place] [address] [address] Sep, Low vitamin D level R79.89 [place] [address] [address] Aug, Acute low back pain, unspecified back pa in laterality, with sciatica presence unspecified M54.5 and Primary osteoarthritis of left hip M16.12 [place] [address] [address] Aug, [place] [address] [address] Jun, [place] [address] [address] Jun, Other chronic pain G89.29 and Pain in ri ght knee M25.561 [place] [address] [address] May, Primary osteoarthritis of left hip M16.1 2 ; Pain in left hip M25.552 ; Other acute postprocedural pain G89.18 and Anxiety F41.9 [facility] [address] [address] May, [facility] [address] [address] Apr, Pain in right knee M25.561 and Mood diso rder F39 [facility] [address] [address] Apr, [facility] [address] [id number] March, [facility] [address] [id number] March, Encounter for dental exam and cleaning w /o abnormal findings Z01.20 [facility] [address] [id number] March, Dental examination Z01.20 [facility] [address] [id number] March, Dental examination Z01.20 [facility] [address] [address] March, [facility] [address] [address] March, [facility] [address] [address] Feb, [facility] [address] [address] Feb, Primary osteoarthritis of left hip M16.1 2 [facility] [address] [address] Feb, Other chronic pain G89.29 and Pain in le ft hip M25.552 [facility] [address] [address] Feb, Acute pain of left hip M25.552 [place] [address] [address] Feb, Mood disorder F39 and Pain in right knee M25.561 [place] [address] [address] Jan, Other chronic pain G89.29 [place] [address] [address] Jan, Mood disorder F39 [place] [address] [address] Jan, Pain in right knee M25.561 [place] [address] [address] Jan, Pain in left hip M25.552 and Other chron ic pain G89.29 [place] [address] [address] Jan, Acute pain of left hip M25.552 [place] [address] [address] Jan, Acute pain of left hip M25.552 [place] [address] [address] Jan, Mood disorder F39 and Acute pain of left hip M25.552 [place] [address] [address] Nov, Mood disorder F39 [place] [address] [address] Oct, Essential hypertension I10 ; Mixed hyper lipidemia E78.2 and Low back pain M54.5 [place] [id number] [id number] May, [place] [address] [id number] [place] [address] Apr, Essential hypertension I10 ; Anger R45.4 ; Mixed hyperlipidemia E78.2 ; Drug-induced erectile dysfunction N52.2 ; Gastroesophageal reflux disease with esophagitis K21.0 ; Pure hypercholesterolemia E78.00 ; Pain in right knee M25.561 ; Psychophysiological insomnia F51.04 and Wheezing R06.2 [place] [address] [address] March, Hx of cervical spine surgery Z98.89 [place] [address] [address] March, [place] [address] [place] [id number] Feb, Anxiety associated with depression F41.[address] [address] Jan, Anxiety associated with depression F41.[address] [address] Dec, [place] [address] [address] Dec, [address] [address] Dec, Essential hypertension I10 ; Erectile dy sfunction, unspecified erectile dysfunction type N52.9 and Hyperlipemia E78.[address] [address] Nov, Essential hypertension I10 ; Hx of cervi pierre spine surgery Z98.89 ; Erectile dysfunction, unspecified erectile dysfunction type N52.9 ; Idiopathic peripheral neuropathy G60.9 ; Anger R45.4 ; Anxiety associated with depression F41.8 ; Hyperlipemia E78.5 ; Wheezing R06.2 and Has daytime drowsiness R40.0 [place] [address] [address] Nov, [address] [address] Nov, [address] [address] Sep, [facility] [address] [address] Sep, Acute midline low back pain without scia peace M54.5 [facility] [address] [address] 10 Sep, 2016 Acute bilateral low back pain without sc iatica M54.5 [place] [address] [address] Aug, [place] [address] [address] Jun, Wheezing R06.2 ; Candidal dermatitis B37 .2 ; Essential hypertension I10 ; Erectile dysfunction, unspecified erectile dysfunction type N52.9 ; Idiopathic peripheral neuropathy G60.9 ; Mixed hyperlipidemia E78.2 and Other stimulant dependence, 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 [place] [address] [address] March, Essential hypertension I10 ; Hx of cervi pierre spine surgery Z98.89 ; Idiopathic peripheral neuropathy G60.9 ; Mixed hyperlipidemia E78.2 ; Anger R45.4 ; Drug-induced erectile dysfunction N52.2 and Gastroesophageal reflux disease with esophagitis K21.0 [place] [address] [address] Feb, [place] [address] [address] Dec, Low back pain M54.5 [place] [address] [address] Dec, [place] [address] [address] Dec, Unspecified mood [affective] disorder F3 9 ; Anxiety disorder, unspecified F41.9 ; Other stimulant dependence, 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 and Cannabis dependence, uncomplicated F12.20 [place] [address] [address] Dec, Essential hypertension I10 ; Hyperlipemi a E78.5 ; Erectile dysfunction, unspecified erectile dysfunction type N52.9 ; Anger R45.4 ; Mixed hyperlipidemia E78.2 ; Anxiety associated with depression F41.8 ; Elevated serum creatinine R79.89 ; 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 and Marijuana abuse F12.10 [place] [address] [address] Oct, Essential hypertension I10 ; Idiopathic peripheral neuropathy G60.9 ; Low back pain M54.5 ; Hx of cervical spine surgery Z98.89 ; Erectile dysfunction, unspecified erectile dysfunction type N52.9 ; Anger R45.4 ; Mixed hyperlipidemia E78.2 and Anxiety associated with depression F41.[address] [address] Oct, Unspecified mood [affective] disorder F3 9 and Anxiety disorder, unspecified F41.[address] [address] Oct, Hyperlipemia E78.[address] [address] Oct, Essential hypertension I10 [address] [address] Oct, [address] [address] Oct, Essential hypertension I10 ; Idiopathic peripheral neuropathy G60.9 ; Low back pain M54.5 ; Hx of cervical spine surgery Z98.89 ; Pain in right hand M79.641 ; Pain of left hand M79.642 ; Pain in left foot M79.672 ; Pain in right foot M79.671 ; Erectile dysfunction, unspecified erectile dysfunction type N52.9 and Anger R45.4 [place] [address] [address] Sep, [address] [address] Jul, [address] [id number] [place] [address] Jun, [facility] [address] [id number] [place] [address] May, [facility] [address] [id number] [place] [address] Apr, [facility] [address] [id number] [place] [address] March, [facility] [address] [id number] [place] [address] Feb, [facility] [address] [id number] [place] [address] Feb, [facility] [address] [id number] [place] [address] Jan, [facility] [address] [id number] [place] [address] Jan, [facility] [address] [id number] [place] [address] Nov, [facility] [address] [id number] [place] [address] Nov, [facility] [address] [id number] [place] [address] Nov, [facility] [address] [id number] [place] [address] Nov, [facility] [address] [id number] [place] [address] Nov, [facility] [address] [id number] [place] [address] Nov, [facility] [address] [place] [id number] [place] [address] Oct, [facility] [address] [id number] [place] [address] Oct, [facility] [address] [id number] [place] [address] Oct, [facility] [address] [id number] [place] [address] Oct, [facility] [address] [id number] [place] [address] Sep, [facility] [address] [id number] [place] [address] Sep, [facility] [address] [id number] [place] [address] Sep, [facility] [address] [facility] [id number] [place] [address] Sep, [facility] [address] [id number] [place] [address] Sep, [facility] [address] [id number] [place] [address] 16 Aug, 2014 [facility] [address] [id number] [place] [address] 16 Aug, 2014 [facility] [address] [id number] [place] [address] 15 Aug, 2014 [facility] [address] [id number] [place] [address] 15 Aug, 2014 [facility] [address] [id number] [place] [address] 15 Aug, 2014 [facility] [address] [id number] [place] [address] 15 Aug, 2014 [facility] [address] [id number] [place] [address] 13 Aug, 2014 [facility] [address] [id number] [place] [address] 07 Aug, 2014 [facility] [address] [id number] [place] [address] 07 Aug, 2014 [facility] [address] [id number] [place] [address] 06 Aug, 2013 [facility] [address] [id number] [place] [address] Aug, [facility] [address] [id number] [place] [address] Jul, [facility] [address] [facility] [id number] [place] [address] Jul, [facility] [address] [facility] [id number] [place] [address] Jul, [facility] [address] [facility] [id number] [place] [address] Jul, [facility] [address] [facility] [id number] [place] [address] Jun, [facility] [address] [facility] [id number] [place] [address] Jun, [facility] [address] [id number] [place] [address] Jun, [facility] [address] [id number] [place] [address] Jun, [facility] [address] [facility] [id number] [place] [address] Jun, [facility] [address] [id number] [place] [address] Jun, [facility] [address] [id number] [place] [address] May, [facility] [address] [id number] [place] [address] May, [facility] [address] [facility] [id number] [place] [address] May, [facility] [address] [facility] [id number] [place] [address] May, [facility] [address] [facility] [id number] [place] [id number] May, [facility] [address] [facility] [id number] [place] [address] May, [facility] [address] [id number] [place] [address] May, [facility] [address] [facility] [id number] [place] [address] May, [facility] [address] [facility] [id number] [place] [address] May, [facility] [address] [id number] [place] [address] May, [facility] [address] [facility] [id number] [place] [address] May, [facility] [address] [facility] [id number] [place] [address] May, [facility] [address] [id number] [place] [address] Apr, [facility] [address] [id number] [place] [address] Apr, [facility] [address] [id number] [place] [address] March, [facility] [address] [id number] [place] [address] March, [facility] [address] [id number] [place] [address] March, [facility] [address] [id number] [place] [address] March, [facility] [address] [id number] [place] [address] Feb, [facility] [address] [facility] [id number] [place] [address] Feb, [facility] [address] [id number] [place] [address] Jan, [facility] [address] [id number] [place] [address] Jan, [facility] [address] [id number] [place] [address] Jan, [facility] [address] [id number] [place] [address] Jan, [facility] [address] [id number] [place] [address] Dec, [facility] [address] [id number] [place] [address] Dec, [facility] [address] [id number] [place] [address] Nov, [facility] [address] [id number] [place] [address] Nov, [facility] [address] [id number] [place] [address] Nov, [facility] [address] [id number] [place] [address] Nov, [facility] [address] [id number] [place] [address] Oct, [facility] [address] [id number] [place] [address] Oct, [facility] [address] [id number] [place] [address] Sep, [facility] [address] [id number] [place] [address] Sep, [facility] [address] [id number] [place] [address] Jul, [facility] [address] [id number] [place] [address] Jul, [facility] [address] [id number] [place] [address] Jul, [facility] [address] [id number] [place] [address] Jun, [facility] [address] [id number] [place] [address] Jun, [facility] [address] [id number] [place] [address] May, [facility] [address] [id number] [place] [address] May, [facility] [address] [id number] [place] [address] May, [facility] [address] [id number] [place] [address] March, [facility] [address] [place] [id number] [place] [address] Jan, [facility] [address] [id number] [place] [address] Jan, [facility] [address] [id number] [place] [address] Jan, [facility] [address] [id number] [place] [address] Dec[facility] [address] [place] [address] [id number] [place] [address] May, [facility] [address] [id number] [place] [address] March, [facility] [address] [place] [id number] [place] [address] Jan, [facility] [address] [id number] [place] [address] Aug, [facility] [address] [id number] [place] [address] Aug[facility] [address] [id number] [place] [address] Aug, [facility] [address] [id number] [place] [address] Jun, [facility] [address] [id number] [place] [address] May[facility] [address] [id number] [place] [address] Oct, IMMUNIZATIONS No Known Immunizations SOCIAL HISTORY Never Assessed REASON FOR VISIT PLAN OF CARE VITAL SIGNS Blood pressure systolic 122 mmHg 2014-04-30 Blood pressure diastolic 82 mmHg 2014-04-30 MEDICATIONS Unknown Medications RESULTS No Results PROCEDURES Procedure Date Ordered Result Body Site REMOVAL OF NAIL BED April 30, 2014 INSTRUCTIONS MEDICATIONS ADMINISTERED No Known Medications MEDICAL [...]
--- OUTSIDE RECORDS SUMMARY | 2020-02-05 10:58 | XMS REPORT ---
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 Name Role Phone Migration, Doctor Unavailable Unavailable PROBLEMS Type Condition ICD9-CM Code [id number] Code Onset Dates Condition S tatus SNOMED Code Problem Erectile dysfunction, unspecified erectile dysfunction typ e N52.9 Active 105102106 Problem Anger R45.4 Active 52876898 Problem Pain in right foot M79.671 Active 4 6296766 Problem Hx of cervical spine surgery Z98.89 A ctive 066747725 Problem Idiopathic peripheral neuropathy G60.9 Active 41596525 Problem Low back pain M54.5 Active 404299 005 Problem Pure hypercholesterolemia E78.00 Acti ve 106096022 Problem Psychophysiological insomnia F51.04 A ctive 253413989 Problem 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 Active 166278268 Problem Unspecified mood [affective] disorder F39 Active 302013822 Problem Other stimulant dependence, 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 Active 407051236 Problem Marijuana abuse F12.10 Active 3734 4009 Problem Drug-induced erectile dysfunction N52.2 Active 567918881 Problem Cannabis dependence, uncomplicated F12.20 Active 97511422 Problem Candidal dermatitis B37.2 Active 54371002 Problem Gastroesophageal reflux disease with esophagitis K 21.0 Active 773338675 Problem Pain in right knee M25.561 Active 3 [id number] Problem Wheezing R06.2 Active 33219611 Problem Mood disorder F39 Active 205941 05 Problem Acute left-sided low back pain with left-sided sciatica M54.42 Active 085499847 Problem Mixed hyperlipidemia E78.2 Active 264406851 Problem Chronic maxillary sinusitis J32.0 Ac tive 90575241 Problem Essential hypertension I10 Active 84775559 Problem Anxiety disorder, unspecified F41.9 Active 036206309 Problem Other chronic pain G89.29 Active 8 5539815 Problem Primary osteoarthritis of left hip M16.12 Active 916600247 Problem Anxiety F41.9 Active 37260864 Problem Polydipsia R63.1 Active 61251165 ALLERGIES No Information ENCOUNTERS Encounter Location Date Diagnosis [facility] [address] [address] Oct, Pre-procedural laboratory examination Z0 1.812 [place] [address] [address] Oct, Chronic maxillary sinusitis J32.0 [place] [address] [address] Oct, Sinus disease J34.9 [place] [address] [address] Oct, [place] [address] [address] Oct, Acute left-sided low back pain with left -sided sciatica M54.42 and Closed fracture of nasal bone with routine healing, subsequent encounter S02.2XXD [place] [address] [address] Sep, [place] [address] [address] Aug, Encounter for immunization Z23 and Nasal pain J34.89 [place] [address] [address] Jul, Separation of left acromioclavicular marco nt, initial encounter S43.102A [place] [address] [address] March, [place] [address] [address] March, Essential hypertension I10 [place] [address] [address] March, [place] [address] [address] Feb, [place] [address] [address] Feb, [place] [address] [address] Feb, [place] [address] [address] Feb, Prediabetes R73.03 [place] [address] [address] 21 Jan, 2019 [place] [address] [address] 14 Jan, 2019 [place] [address] [address] 13 Jan, 2019 Polydipsia R63.1 ; Peripheral edema R60. 9 ; Pre-diabetes R73.03 and Tongue lesion K14.8 [place] [address] [address] Sep, Other chronic pain G89.29 [place] [address] [address] Sep, Acute low back pain, unspecified back pa in laterality, with sciatica presence unspecified M54.5 [place] [address] [address] Sep, Low vitamin D level R79.89 [place] [address] [address] Aug, Acute low back pain, unspecified back pa in laterality, with sciatica presence unspecified M54.5 and Primary osteoarthritis of left hip M16.12 [place] [address] [address] Aug, [place] [address] [address] Jun, [place] [address] [address] Jun, Other chronic pain G89.29 and Pain in ri ght knee M25.561 [place] [address] [address] May, Primary osteoarthritis of left hip M16.1 2 ; Pain in left hip M25.552 ; Other acute postprocedural pain G89.18 and Anxiety F41.9 [facility] [address] [address] May, [facility] [address] [address] Apr, Pain in right knee M25.561 and Mood diso rder F39 [facility] [address] [address] Apr, [facility] [address] [id number] March, [facility] [address] [id number] March, Encounter for dental exam and cleaning w /o abnormal findings Z01.20 [facility] [address] [id number] March, Dental examination Z01.20 [facility] [address] [id number] March, Dental examination Z01.20 [facility] [address] [address] March, [facility] [address] [address] March, [facility] [address] [address] Feb, [facility] [address] [address] Feb, Primary osteoarthritis of left hip M16.1 2 [facility] [address] [address] Feb, Other chronic pain G89.29 and Pain in le ft hip M25.552 [facility] [address] [address] Feb, Acute pain of left hip M25.552 [place] [address] [address] Feb, Mood disorder F39 and Pain in right knee M25.561 [place] [address] [address] Jan, Other chronic pain G89.29 [place] [address] [address] Jan, Mood disorder F39 [place] [address] [address] Jan, Pain in right knee M25.561 [place] [address] [address] Jan, Pain in left hip M25.552 and Other chron ic pain G89.29 [place] [address] [address] Jan, Acute pain of left hip M25.552 [place] [address] [address] Jan, Acute pain of left hip M25.552 [place] [address] [address] Jan, Mood disorder F39 and Acute pain of left hip M25.552 [place] [address] [address] Nov, Mood disorder F39 [place] [address] [address] Oct, Essential hypertension I10 ; Mixed hyper lipidemia E78.2 and Low back pain M54.5 [place] [address] [place] [id number] [id number] May, [place] [address] [id number] [place] [address] Apr, Essential hypertension I10 ; Anger R45.4 ; Mixed hyperlipidemia E78.2 ; Drug-induced erectile dysfunction N52.2 ; Gastroesophageal reflux disease with esophagitis K21.0 ; Pure hypercholesterolemia E78.00 ; Pain in right knee M25.561 ; Psychophysiological insomnia F51.04 and Wheezing R06.2 [place] [address] [address] March, Hx of cervical spine surgery Z98.89 [place] [address] [address] March, [place] [address] [place] [id number] Feb, Anxiety associated with depression F41.[address] [address] Jan, Anxiety associated with depression F41.[address] [address] Dec, [place] [address] [address] Dec, [address] [address] Dec, Essential hypertension I10 ; Erectile dy sfunction, unspecified erectile dysfunction type N52.9 and Hyperlipemia E78.[address] [address] Nov, Essential hypertension I10 ; Hx of cervi pierre spine surgery Z98.89 ; Erectile dysfunction, unspecified erectile dysfunction type N52.9 ; Idiopathic peripheral neuropathy G60.9 ; Anger R45.4 ; Anxiety associated with depression F41.8 ; Hyperlipemia E78.5 ; Wheezing R06.2 and Has daytime drowsiness R40.0 [place] [address] [address] Nov, [address] [address] Nov, [address] [address] Sep, [place] [address] [address] Sep, Acute midline low back pain without scia peace M54.5 [facility] [address] [address] Sep, Acute bilateral low back pain without sc iatica M54.5 [place] [address] [address] Aug, [place] [address] [address] Jun, Wheezing R06.2 ; Candidal dermatitis B37 .2 ; Essential hypertension I10 ; Erectile dysfunction, unspecified erectile dysfunction type N52.9 ; Idiopathic peripheral neuropathy G60.9 ; Mixed hyperlipidemia E78.2 and Other stimulant dependence, 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 [place] [address] [address] March, Essential hypertension I10 ; Hx of cervi pierre spine surgery Z98.89 ; Idiopathic peripheral neuropathy G60.9 ; Mixed hyperlipidemia E78.2 ; Anger R45.4 ; Drug-induced erectile dysfunction N52.2 and Gastroesophageal reflux disease with esophagitis K21.0 [place] [address] [address] Feb, [place] [address] [address] Dec, Low back pain M54.5 [place] [address] [address] Dec, [place] [address] [address] 09 Dec, 2015 Essential hypertension I10 ; Hyperlipemi a E78.5 ; Erectile dysfunction, unspecified erectile dysfunction type N52.9 ; Anger R45.4 ; Mixed hyperlipidemia E78.2 ; Anxiety associated with depression F41.8 ; Elevated serum creatinine R79.89 ; 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 and Marijuana abuse F12.[address] [address] Dec, Unspecified mood [affective] disorder F3 9 ; Anxiety disorder, unspecified F41.9 ; Other stimulant dependence, 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 and Cannabis dependence, uncomplicated F12.[address] [address] Oct, Essential hypertension I10 ; Idiopathic peripheral neuropathy G60.9 ; Low back pain M54.5 ; Hx of cervical spine surgery Z98.89 ; Erectile dysfunction, unspecified erectile dysfunction type N52.9 ; Anger R45.4 ; Mixed hyperlipidemia E78.2 and Anxiety associated with depression F41.[address] [address] Oct, Unspecified mood [affective] disorder F3 9 and Anxiety disorder, unspecified F41.[address] [address] Oct, Hyperlipemia E78.[address] [address] Oct, Essential hypertension I10 [address] [address] Oct, [address] [address] Oct, Essential hypertension I10 ; Idiopathic peripheral neuropathy G60.9 ; Low back pain M54.5 ; Hx of cervical spine surgery Z98.89 ; Pain in right hand M79.641 ; Pain of left hand M79.642 ; Pain in left foot M79.672 ; Pain in right foot M79.671 ; Erectile dysfunction, unspecified erectile dysfunction type N52.9 and Anger R45.4 [place] [address] [address] Sep, [address] [address] Jul, [address] [id number] [place] [address] Jun, [facility] [address] [id number] [place] [address] May, [facility] [address] [id number] [place] [address] Apr, [facility] [address] [id number] [place] [address] March, [facility] [address] [id number] [place] [address] Feb, [facility] [address] [id number] [place] [address] Feb, [facility] [address] [id number] [place] [address] Jan, [facility] [address] [id number] [place] [address] Jan, [facility] [address] [id number] [place] [address] Nov, [facility] [address] [id number] [place] [address] Nov, [facility] [address] [id number] [place] [address] Nov, [facility] [address] [id number] [place] [address] Nov, [facility] [address] [id number] [place] [address] Nov, [facility] [address] [id number] [place] [address] Nov, [facility] [address] [place] [id number] [place] [address] Oct, [facility] [address] [id number] [place] [address] Oct, [facility] [address] [id number] [place] [address] Oct, [facility] [address] [id number] [place] [address] Oct, [facility] [address] [id number] [place] [address] Sep, [facility] [address] [id number] [place] [address] Sep, [facility] [address] [id number] [place] [address] Sep, [facility] [address] [facility] [id number] [place] [address] Sep, [facility] [address] [id number] [place] [address] Sep, [facility] [address] [id number] [place] [address] 16 Aug, 2014 [facility] [address] [id number] [place] [address] 16 Aug, 2014 [facility] [address] [id number] [place] [address] 15 Aug, 2014 [facility] [address] [id number] [place] [address] 15 Aug, 2014 [facility] [address] [id number] [place] [address] 15 Aug, 2014 [facility] [address] [id number] [place] [address] 15 Aug, 2014 [facility] [address] [id number] [place] [address] 13 Aug, 2014 [facility] [address] [id number] [place] [address] 07 Aug, 2014 [facility] [address] [id number] [place] [address] 07 Aug, 2014 [facility] [address] [id number] [place] [address] 06 Aug, 2013 [facility] [address] [id number] [place] [address] Aug, [facility] [address] [id number] [facility] [place] [address] Jul, [facility] [address] [facility] [id number] [place] [address] Jul, [facility] [address] [facility] [id number] [place] [address] Jul, [facility] [address] [facility] [id number] [place] [address] Jul, [facility] [address] [facility] [id number] [place] [address] Jun, [facility] [address] [facility] [id number] [place] [address] Jun, [facility] [address] [id number] [place] [address] Jun, [facility] [address] [id number] [place] [address] Jun, [facility] [address] [facility] [id number] [place] [address] Jun, [facility] [address] [id number] [place] [address] Jun, [facility] [address] [id number] [place] [address] May, [facility] [address] [id number] [place] [address] May, [facility] [address] [facility] [id number] [place] [address] May, [facility] [address] [facility] [id number] [place] [address] May, [facility] [address] [facility] [id number] [place] [id number] May, [facility] [address] [facility] [id number] [place] [address] May, [facility] [address] [id number] [facility] [place] [address] May, [facility] [address] [facility] [id number] [facility] [place] [address] May, [facility] [address] [facility] [id number] [place] [address] May, [facility] [address] [id number] [place] [address] May, [facility] [address] [facility] [id number] [facility] [place] [address] May, [facility] [address] [facility] [id number] [place] [address] May, [facility] [address] [id number] [place] [address] Apr, [facility] [address] [id number] [place] [address] Apr, [facility] [address] [id number] [place] [address] March, [facility] [address] [id number] [place] [address] March, [facility] [address] [id number] [place] [address] March, [facility] [address] [id number] [place] [address] March, [facility] [address] [id number] [place] [address] Feb, [facility] [address] [facility] [id number] [place] [address] Feb, [facility] [address] [id number] [place] [address] Jan, [facility] [address] [id number] [place] [address] Jan, [facility] [address] [id number] [place] [address] Jan, [facility] [address] [id number] [place] [address] Jan, [facility] [address] [id number] [place] [address] Dec, [facility] [address] [id number] [place] [address] Dec, [facility] [address] [id number] [place] [address] Nov, [facility] [address] [id number] [place] [address] Nov, [facility] [address] [id number] [place] [address] Nov, [facility] [address] [id number] [place] [address] Nov, [facility] [address] [id number] [place] [address] Oct, [facility] [address] [id number] [place] [address] Oct, [facility] [address] [id number] [place] [address] Sep, [facility] [address] [id number] [place] [address] Sep, [facility] [address] [id number] [place] [address] Jul, [facility] [address] [id number] [place] [address] Jul, [facility] [address] [id number] [place] [address] Jul, [facility] [address] [id number] [place] [address] Jun, [facility] [address] [id number] [place] [address] Jun, [facility] [address] [id number] [place] [address] May, [facility] [address] [id number] [place] [address] May, [facility] [address] [id number] [place] [address] May, [facility] [address] [id number] [place] [address] March, [facility] [address] [place] [id number] [place] [address] Jan, [facility] [address] [id number] [place] [address] Jan, [facility] [address] [id number] [place] [address] Jan, [facility] [address] [id number] [place] [address] Dec, [facility] [address] [place] [id number] [place] [address] May, [facility] [address] [id number] [place] [address] March, [facility] [address] [place] [id number] [place] [address] Jan, [facility] [address] [id number] [place] [address] Aug, [facility] [address] [id number] [place] [address] Aug, [facility] [address] [id number] [place] [address] Aug, [facility] [address] [id number] [place] [address] Jun, [facility] [address] [id number] [place] [address] May, [facility] [address] [id number] [place] [address] Oct, IMMUNIZATIONS No Known Immunizations SOCIAL HISTORY Never Assessed REASON FOR VISIT PLAN OF CARE VITAL SIGNS Blood pressure systolic 124 mmHg 2014-05-21 Blood pressure diastolic 84 mmHg 2014-05-21 MEDICATIONS Unknown Medications RESULTS No Results PROCEDURES Procedure Date Ordered Result Body Site DEBRIDE NAIL, 6 OR MORE May 21, 2014 INSTRUCTIONS MEDICATIONS ADMINISTERED No Known Medications [...]
--- OUTSIDE RECORDS SUMMARY | 2020-02-05 10:58 | XMS REPORT ---
Author Author Jelani Craig Organization [facility] Address [address] [place] [address] Care Team Providers Care Trade Promotion Analyst Name Role Phone KRISTEL Craig Unavailable PROBLEMS Type Condition ICD9-CM Code [id number] Code Onset Dates Condition S tatus SNOMED Code Problem Erectile dysfunction, unspecified erectile dysfunction typ e N52.9 Active 460103566 Problem Anger R45.4 Active 08789648 Problem Pain in right foot M79.671 Active 4 2989410 Problem Hx of cervical spine surgery Z98.89 A ctive 168970085 Problem Idiopathic peripheral neuropathy G60.9 Active 24801447 Problem Low back pain M54.5 Active 238555 005 Problem Pure hypercholesterolemia E78.00 Acti ve 957278690 Problem Psychophysiological insomnia F51.04 A ctive 924659799 Problem 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 Active 029401244 Problem Unspecified mood [affective] disorder F39 Active 818263102 Problem Other stimulant dependence, 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 Active 852840886 Problem Marijuana abuse F12.10 Active 3734 4009 Problem Drug-induced erectile dysfunction N52.2 Active 615864079 Problem Cannabis dependence, uncomplicated F12.20 Active 24218613 Problem Candidal dermatitis B37.2 Active 70867769 Problem Gastroesophageal reflux disease with esophagitis K 21.0 Active 909960891 Problem Pain in right knee M25.561 Active 3 [id number] Problem Wheezing R06.2 Active 32749251 Problem Mood disorder F39 Active 824095 05 Problem Acute left-sided low back pain with left-sided sciatica M54.42 Active 849211212 Problem Mixed hyperlipidemia E78.2 Active 036010551 Problem Chronic maxillary sinusitis J32.0 Ac tive 83452522 Problem Essential hypertension I10 Active 95589249 Problem Anxiety disorder, unspecified F41.9 Active 288426592 Problem Other chronic pain G89.29 Active 8 8274289 Problem Primary osteoarthritis of left hip M16.12 Active 291972899 Problem Anxiety F41.9 Active 41019265 Problem Polydipsia R63.1 Active 87538994 ALLERGIES No Information ENCOUNTERS Encounter Location Date Diagnosis [place] [address] [address] Oct, Pre-procedural laboratory examination Z0 1.812 [place] [address] [address] Oct, Chronic maxillary sinusitis J32.0 [place] [address] [address] Oct, Sinus disease J34.9 [place] [address] [address] Oct, [place] [address] [address] Oct, Acute left-sided low back pain with left -sided sciatica M54.42 and Closed fracture of nasal bone with routine healing, subsequent encounter S02.2XXD [place] [address] [address] Sep, [place] [address] [address] Aug, Encounter for immunization Z23 and Nasal pain J34.89 [place] [address] [address] Jul, Separation of left acromioclavicular marco nt, initial encounter S43.102A [place] [address] [address] March, [place] [address] [address] March, Essential hypertension I10 [place] [address] [address] March, [place] [address] [address] Feb, [place] [address] [address] Feb, [place] [address] [address] Feb, [place] [address] [address] Feb, Prediabetes R73.03 [place] [address] [address] Jan, [place] [address] [address] Jan, [place] [address] [address] Jan, Polydipsia R63.1 ; Peripheral edema R60. 9 ; Pre-diabetes R73.03 and Tongue lesion K14.8 [place] [address] [address] Sep, Other chronic pain G89.29 [place] [address] [address] Sep, Acute low back pain, unspecified back pa in laterality, with sciatica presence unspecified M54.5 [place] [address] [address] Sep, Low vitamin D level R79.89 [place] [address] [address] Aug, Acute low back pain, unspecified back pa in laterality, with sciatica presence unspecified M54.5 and Primary osteoarthritis of left hip M16.12 [place] [address] [address] Aug, [place] [address] [address] Jun, [place] [address] [address] Jun, Other chronic pain G89.29 and Pain in ri ght knee M25.561 [facility] [address] [address] May, Primary osteoarthritis of left hip M16.1 2 ; Pain in left hip M25.552 ; Other acute postprocedural pain G89.18 and Anxiety F41.9 [facility] [address] [address] May, [facility] [address] [address] Apr, Pain in right knee M25.561 and Mood diso rder F39 [facility] [address] [address] Apr, [facility] [address] [id number] March, [facility] [address] [id number] March, Encounter for dental exam and cleaning w /o abnormal findings Z01.20 [facility] [address] [id number] March, Dental examination Z01.20 [facility] [address] [id number] March, Dental examination Z01.20 [facility] [address] [address] March, [facility] [address] [address] March, [facility] [address] [address] Feb, [facility] [address] [address] Feb, Primary osteoarthritis of left hip M16.1 2 [facility] [address] [address] Feb, Other chronic pain G89.29 and Pain in le ft hip M25.552 [facility] [address] [address] Feb, Acute pain of left hip M25.552 [facility] [address] [address] Feb, Mood disorder F39 and Pain in right knee M25.561 [facility] [address] [address] Jan, Other chronic pain G89.29 [place] [address] [address] Jan, Mood disorder F39 [place] [address] [address] Jan, Pain in right knee M25.561 [place] [address] [address] Jan, Pain in left hip M25.552 and Other chron ic pain G89.29 [place] [address] [address] Jan, Acute pain of left hip M25.552 [place] [address] [address] Jan, Acute pain of left hip M25.552 [place] [address] [address] Jan, Mood disorder F39 and Acute pain of left hip M25.552 [place] [address] [address] Nov, Mood disorder F39 [place] [address] [address] Oct, Essential hypertension I10 ; Mixed hyper lipidemia E78.2 and Low back pain M54.5 [facility] [id number] [place] [id number] May, [place] [address] [address] Apr, Essential hypertension I10 ; Anger R45.4 ; Mixed hyperlipidemia E78.2 ; Drug-induced erectile dysfunction N52.2 ; Gastroesophageal reflux disease with esophagitis K21.0 ; Pure hypercholesterolemia E78.00 ; Pain in right knee M25.561 ; Psychophysiological insomnia F51.04 and Wheezing R06.2 [place] [address] [place] [id number] March, Hx of cervical spine surgery Z98.89 [place] [address] [place] [id number] March, [place] [address] [place] [id number] Feb, Anxiety associated with depression F41.8 [place] [address] [address] Jan, Anxiety associated with depression F41.8 [place] [address] [address] Dec, [place] [address] [address] Dec, [place] [address] [address] Dec, Essential hypertension I10 ; Erectile dy sfunction, unspecified erectile dysfunction type N52.9 and Hyperlipemia E78.5 [place] [address] [address] Nov, Essential hypertension I10 ; Hx of cervi pierre spine surgery Z98.89 ; Erectile dysfunction, unspecified erectile dysfunction type N52.9 ; Idiopathic peripheral neuropathy G60.9 ; Anger R45.4 ; Anxiety associated with depression F41.8 ; Hyperlipemia E78.5 ; Wheezing R06.2 and Has daytime drowsiness R40.0 [place] [address] [address] Nov, [place] [address] [address] Nov, [place] [address] [address] Sep, [place] [address] [address] Sep, Acute midline low back pain without scia peace M54.5 [place] [address] [address] Sep, Acute bilateral low back pain without sc iatica M54.5 [place] [address] [address] Aug, [place] [address] [address] Jun, Wheezing R06.2 ; Candidal dermatitis B37 .2 ; Essential hypertension I10 ; Erectile dysfunction, unspecified erectile dysfunction type N52.9 ; Idiopathic peripheral neuropathy G60.9 ; Mixed hyperlipidemia E78.2 and Other stimulant dependence, 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 [place] [address] [address] March, Essential hypertension I10 ; Hx of cervi pierre spine surgery Z98.89 ; Idiopathic peripheral neuropathy G60.9 ; Mixed hyperlipidemia E78.2 ; Anger R45.4 ; Drug-induced erectile dysfunction N52.2 and Gastroesophageal reflux disease with esophagitis K21.0 [place] [address] [address] Feb, [place] [address] [address] Dec, Low back pain M54.5 [place] [address] [address] Dec, [place] [address] [address] 09 Dec, 2015 Unspecified mood [affective] disorder F3 9 ; Anxiety disorder, unspecified F41.9 ; Other stimulant dependence, 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 and Cannabis dependence, uncomplicated F12.[address] [address] 09 Dec, 2015 Essential hypertension I10 ; Hyperlipemi a E78.5 ; Erectile dysfunction, unspecified erectile dysfunction type N52.9 ; Anger R45.4 ; Mixed hyperlipidemia E78.2 ; Anxiety associated with depression F41.8 ; Elevated serum creatinine R79.89 ; 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 and Marijuana abuse F12.[address] [address] Oct, Essential hypertension I10 ; Idiopathic peripheral neuropathy G60.9 ; Low back pain M54.5 ; Hx of cervical spine surgery Z98.89 ; Erectile dysfunction, unspecified erectile dysfunction type N52.9 ; Anger R45.4 ; Mixed hyperlipidemia E78.2 and Anxiety associated with depression F41.[address] [address] Oct, Unspecified mood [affective] disorder F3 9 and Anxiety disorder, unspecified F41.[address] [address] Oct, Hyperlipemia E78.[address] [address] Oct, Essential hypertension I10 [address] [address] Oct, [address] [address] Oct, Essential hypertension I10 ; Idiopathic peripheral neuropathy G60.9 ; Low back pain M54.5 ; Hx of cervical spine surgery Z98.89 ; Pain in right hand M79.641 ; Pain of left hand M79.642 ; Pain in left foot M79.672 ; Pain in right foot M79.671 ; Erectile dysfunction, unspecified erectile dysfunction type N52.9 and Anger R45.[address] [address] Sep, [facility] [address] [id number] [place] [address] Jul, [facility] [address] [id number] [place] [address] Jun, [facility] [address] [id number] [place] [address] May, [facility] [address] [place] [id number] [place] [address] Apr, [facility] [address] [id number] [place] [address] March, [facility] [address] [id number] [place] [address] Feb, [facility] [address] [id number] [place] [address] Feb, [facility] [address] [place] [id number] [place] [address] Jan, [facility] [address] [place] [id number] [place] [address] Jan, [facility] [address] [id number] [place] [address] Nov, [facility] [address] [id number] [place] [address] Nov, [facility] [address] [place] [id number] [place] [address] Nov, [facility] [address] [id number] [place] [address] Nov, [facility] [address] [id number] [place] [address] Nov, [facility] [address] [place] [id number] [place] [address] Nov, [facility] [address] [id number] [place] [address] Oct, [facility] [address] [place] [id number] [place] [address] Oct, [facility] [address] [facility] [id number] [place] [address] Oct, [facility] [address] [facility] [id number] [place] [address] Oct, [facility] [address] [id number] [place] [address] Sep, [facility] [address] [id number] [place] [address] Sep, [facility] [address] [facility] [id number] [place] [address] Sep, [facility] [address] [id number] [place] [address] Sep, [facility] [address] [id number] [place] [address] Sep, [facility] [address] [id number] [place] [address] 16 Aug, 2014 [facility] [address] [id number] [place] [address] 16 Aug, 2014 [facility] [address] [id number] [place] [address] 15 Aug, 2014 [facility] [address] [id number] [place] [address] 15 Aug, 2014 [facility] [address] [id number] [place] [address] 15 Aug, 2014 [facility] [address] [id number] [place] [address] 15 Aug, 2014 [facility] [address] [id number] [place] [address] 13 Aug, 2014 [facility] [address] [id number] [place] [address] 07 Aug, 2014 [facility] [address] [id number] [place] [address] 07 Aug, 2014 [facility] [address] [id number] [place] [address] Aug, [facility] [address] [id number] [place] [address] Aug, [facility] [address] [id number] [place] [address] Jul, [facility] [address] [id number] [place] [address] Jul, [facility] [address] [id number] [place] [address] Jul, [facility] [address] [id number] [place] [address] Jul, [facility] [address] [id number] [place] [address] Jun, [facility] [address] [id number] [place] [address] Jun, [facility] [address] [id number] [place] [address] Jun, [facility] [address] [id number] [place] [address] Jun, [facility] [address] [id number] [place] [address] Jun, [facility] [address] [id number] [place] [address] Jun, [facility] [address] [id number] [place] [address] May, [facility] [address] [id number] [place] [address] May, [facility] [address] [id number] [place] [address] May, [facility] [address] [id number] [place] [address] May, [facility] [address] [id number] [place] [id number] May, [facility] [address] [id number] [place] [address] May, [facility] [address] [facility] [id number] [place] [address] May, [facility] [address] [id number] [place] [address] May, [facility] [address] [id number] [place] [address] May, [facility] [address] [facility] [id number] [place] [address] May, [facility] [address] [id number] [place] [address] May, [facility] [address] [id number] [place] [address] May, [facility] [address] [id number] [place] [address] Apr, [facility] [address] [id number] [place] [address] Apr, [facility] [address] [id number] [place] [address] March, [facility] [address] [id number] [place] [address] March, [facility] [address] [id number] [place] [address] March, [facility] [address] [id number] [place] [address] March, [facility] [address] [id number] [place] [address] Feb, [facility] [address] [id number] [place] [address] Feb, [facility] [address] [id number] [place] [address] Jan, [facility] [address] [id number] [place] [address] Jan, [facility] [address] [id number] [place] [address] Jan, [facility] [address] [id number] [place] [address] Jan, [facility] [address] [id number] [place] [address] Dec, [facility] [address] [id number] [place] [address] Dec, [facility] [address] [id number] [place] [address] Nov, [facility] [address] [id number] [place] [address] Nov, [facility] [address] [id number] [place] [address] Nov, [facility] [address] [id number] [place] [address] Nov, [facility] [address] [id number] [place] [address] Oct, [facility] [address] [id number] [place] [address] Oct, [facility] [address] [id number] [place] [address] Sep, [facility] [address] [id number] [place] [address] Sep, [facility] [address] [id number] [place] [address] Jul, [facility] [address] [id number] [place] [address] Jul, [facility] [address] [id number] [place] [address] Jul, [facility] [address] [id number] [place] [address] Jun, [facility] [address] [id number] [place] [address] Jun, [facility] [address] [id number] [place] [address] May, [facility] [address] [id number] [place] [address] May, [facility] [address] [id number] [place] [address] May, [facility] [address] [id number] [place] [address] March, [facility] [address] [id number] [place] [address] Jan, [facility] [address] [id number] [place] [address] Jan, [facility] [address] [id number] [place] [address] Jan, [facility] [address] [id number] [place] [address] Dec, [facility] [address] [id number] [place] [address] May, [facility] [address] [id number] [place] [address] March, [facility] [address] [id number] [place] [address] Jan, [facility] [address] [id number] [place] [address] 14 Aug, 2011 [facility] [address] [id number] [place] [address] Aug, [facility] [id number] [place] [address] Aug, [facility] [address] [id number] [place] [address] Jun, [facility] [address] [id number] [place] [address] 14 May, 2011 [facility] [address] [facility] [id number] [place] [address] Oct, IMMUNIZATIONS No Known Immunizations SOCIAL HISTORY Never Assessed REASON FOR VISIT PLAN OF CARE VITAL SIGNS Height 66 in 2014-04-06 Weight 179.06 lbs 2014-04-06 Temperature 97.4 degrees Fahrenheit 2014-04-06 Heart Rate 78 bpm 2014-04-06 Respiratory Rate 18 2014-04-06 Blood pressure systolic 138 mmHg 2014-04-06 Blood pressure diastolic 90 mmHg 2014-04-06 MEDICATIONS Unknown Medications RESULTS No Results PROCEDURES [...]
--- OUTSIDE RECORDS SUMMARY | 2020-02-05 10:59 | XMS REPORT ---
Author Author Jelani BHANDARI Organization [facility] Address [address] [place] [address] Care Team Providers Care Breakfast Host Name Role Phone BÁRBARA BHANDARI Unavailable PROBLEMS Type Condition ICD9-CM Code ZVT39-ZY Code Onset Dates Condition S tatus SNOMED Code Problem Anger R45.4 Active 41018913 Problem Hx of cervical spine surgery Z98.89 A ctive 559487206 Problem Pain in right foot M79.671 Active 4 1609710 Problem Erectile dysfunction, unspecified erectile dysfunction typ e N52.9 Active 041330223 Problem Candidal dermatitis B37.2 Active 40260528 Problem Gastroesophageal reflux disease with esophagitis K 21.0 Active 353920186 Problem Anxiety disorder, unspecified F41.9 Active 058852942 Problem Mixed hyperlipidemia E78.2 Active 336468535 Problem 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 Active 538333965 Problem Unspecified mood [affective] disorder F39 Active 353790867 Problem Other stimulant dependence, 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 Active 412727811 Problem Marijuana abuse F12.10 Active 3734 4009 Problem Drug-induced erectile dysfunction N52.2 Active 705250803 Problem Cannabis dependence, uncomplicated F12.20 Active 12950644 Problem Wheezing R06.2 Active 15856581 Problem Psychophysiological insomnia F51.04 A ctive 945005334 Problem Pure hypercholesterolemia E78.00 Acti ve 851880144 Problem Anxiety F41.9 Active 33534281 Problem Idiopathic peripheral neuropathy G60.9 Active 26890425 Problem Polydipsia R63.1 Active 20891058 Problem Low back pain M54.5 Active 257588 005 Problem Essential hypertension I10 Active 67944799 Problem Pain in right knee M25.561 Active 3 [id number] Problem Mood disorder F39 Active 593314 05 Problem Other chronic pain G89.29 Active 8 4919151 Problem Primary osteoarthritis of left hip M16.12 Active [id number] ALLERGIES No Information ENCOUNTERS Encounter Location Date Diagnosis [facility] [address] [facility] [id number] [address] [place] [address] March, [facility] [address] [facility] [id number] [address] [place] [address] March, Essential hypertension I10 [facility] [address] [facility] [id number] [address] [place] [address] March, [facility] [address] [facility] [id number] [address] [place] [address] Feb, [facility] [address] [facility] [id number] [address] [place] [address] Feb, [facility] [address] [facility] [id number] [address] [place] [address] Feb, [facility] [address] [place] [id number] [place] [address] Feb, Prediabetes R73.03 [facility] [address] [facility] [id number] [address] [place] [address] Jan, [facility] [address] [address] Jan, [facility] [address] [place] [id number] [address] [place] [address] Jan, Polydipsia R63.1 ; Periphera l edema R60.9 ; Pre-diabetes R73.03 and Tongue lesion K14.8 [facility] [address] [facility] [id number] [address] [place] [address] Sep, Other chronic pain G89.29 [facility] [address] [place] [id number] [address] [place] [address] Sep, Acute low back pain, unspeci fied back pain laterality, with sciatica presence unspecified M54.5 [facility] [address] [place] [id number] [address] [place] [address] Sep, Low vitamin D level R79.89 [facility] [address] [place] [id number] [address] [place] [address] Aug, Acute low back pain, unspeci fied back pain laterality, with sciatica presence unspecified M54.5 and Primary osteoarthritis of left hip M16.12 [facility] [address] [id number] [address] [place] [address] Aug, [place] [address] [id number] [address] [place] [address] Jun, [place] [address] [id number] [address] [place] [address] Jun, Other chronic pain G89.29 an d Pain in right knee M25.561 [place] [address] [id number] [address] [place] [address] May, Primary osteoarthritis of le ft hip M16.12 ; Pain in left hip M25.552 ; Other acute postprocedural pain G89.18 and Anxiety F41.9 [place] [address] [id number] [address] [place] [address] May, [place] [address] [id number] [address] [place] [address] Apr, Pain in right knee M25.561 a nd Mood disorder F39 [place] [address] [id number] [address] [place] [address] Apr, [facility] [address] [id number] [address] [place] [id number] March, [facility] [address] [id number] [address] [place] [id number] March, Encounter for dental exam an d cleaning w/o abnormal findings Z01.20 [facility] [address] [id number] [address] [place] [id number] March, Dental examination Z01.20 [facility] [address] [id number] [address] [place] [address] [id number] 11 May, 2018 Dental examination Z01.20 [facility] [address] [id number] [address] [place] [address] March, [facility] [address] [id number] [address] [place] [address] March, [facility] [address] [id number] [address] [place] [address] Feb, [facility] [address] [id number] [address] [place] [address] Feb, Primary osteoarthritis of le ft hip M16.12 [facility] [address] [id number] [address] [place] [address] Feb, Other chronic pain G89.29 an d Pain in left hip M25.552 [facility] [address] [id number] [address] [place] [address] Feb, Acute pain of left hip M25.5 52 [facility] [address] [id number] [address] [place] [address] Feb, Mood disorder F39 and Pain i n right knee M25.561 [facility] [address] [id number] [address] [place] [address] Jan, Other chronic pain G89.29 [facility] [address] [id number] [address] [place] [address] Jan, Mood disorder F39 [facility] [address] [id number] [address] [place] [address] Jan, Pain in right knee M25.561 [facility] [address] [id number] [address] [place] [address] Jan, Pain in left hip M25.552 and Other chronic pain G89.29 [facility] [address] [id number] [address] [place] [address] Jan, Acute pain of left hip M25.5 52 [facility] [address] [address] Jan, Acute pain of left hip M25.5 52 [place] [address] [address] Jan, Mood disorder F39 and Acute pain of left hip M25.552 [place] [address] [address] Nov, Mood disorder F39 [place] [address] [address] Oct, Essential hypertension I10 ; Mixed hyperlipidemia E78.2 and Low back pain M54.5 [facility] [address] [id number] May, [place] [address] [address] Apr, Essential hypertension I10 ; Anger R45.4 ; Mixed hyperlipidemia E78.2 ; Drug-induced erectile dysfunction N52.2 ; Gastroesophageal reflux disease with esophagitis K21.0 ; Pure hypercholesterolemia E78.00 ; Pain in right knee M25.561 ; Psychophysiological insomnia F51.04 and Wheezing R06.2 [place] [address] [address] March, Hx of cervical spine surgery Z98.89 [place] [address] [address] March, [place] [address] [address] Feb, Anxiety associated with depr ession F41.8 [place] [address] [address] Jan, Anxiety associated with depr ession F41.8 [place] [address] [address] Dec, [place] [address] [address] Dec, [facility] [address] [place] [id number] [address] [place] [address] Dec, Essential hypertension I10 ; Erectile dysfunction, unspecified erectile dysfunction type N52.9 and Hyperlipemia E78.5 [facility] [address] [place] [id number] [address] [place] [address] Nov, Essential hypertension I10 ; Hx of cervical spine surgery Z98.89 ; Erectile dysfunction, unspecified erectile dysfunction type N52.9 ; Idiopathic peripheral neuropathy G60.9 ; Anger R45.4 ; Anxiety associated with depression F41.8 ; Hyperlipemia E78.5 ; Wheezing R06.2 and Has daytime drowsiness R40.0 [facility] [address] [address] Nov, [place] [address] [address] Nov, [facility] [address] [place] [id number] [address] [place] [address] Sep, [facility] [address] [address] Sep, Acute midline low back pain without sciatica M54.5 [facility] [address] [place] [id number] [place] [address] Sep, Acute bilateral low back ekta n without sciatica M54.5 [facility] [address] [place] [id number] [address] [place] [address] Aug, [facility] [address] [place] [id number] [address] [place] [address] Jun, Wheezing R06.2 ; Candidal de rmatitis B37.2 ; Essential hypertension I10 ; Erectile dysfunction, unspecified erectile dysfunction type N52.9 ; Idiopathic peripheral neuropathy G60.9 ; Mixed hyperlipidemia E78.2 and Other stimulant dependence, 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 [facility] [address] [address] March, Essential hypertension I10 ; Hx of cervical spine surgery Z98.89 ; Idiopathic peripheral neuropathy G60.9 ; Mixed hyperlipidemia E78.2 ; Anger R45.4 ; Drug-induced erectile dysfunction N52.2 and Gastroesophageal reflux disease with esophagitis K21.0 [place] [address] [address] Feb, [place] [address] [address] Dec, Low back pain M54.5 [place] [address] [address] Dec, [place] [address] [address] Dec, Unspecified mood [affective] disorder F39 ; Anxiety disorder, unspecified F41.9 ; Other stimulant dependence, 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 and Cannabis dependence, uncomplicated F12.20 [place] [address] [address] Dec, Essential hypertension I10 ; Hyperlipemia E78.5 ; Erectile dysfunction, unspecified erectile dysfunction type N52.9 ; Anger R45.4 ; Mixed hyperlipidemia E78.2 ; Anxiety associated with depression F41.8 ; Elevated serum creatinine R79.89 ; 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 and Marijuana abuse F12.10 [place] [address] [address] Oct, Essential hypertension I10 ; Idiopathic peripheral neuropathy G60.9 ; Low back pain M54.5 ; Hx of cervical spine surgery Z98.89 ; Erectile dysfunction, unspecified erectile dysfunction type N52.9 ; Anger R45.4 ; Mixed hyperlipidemia E78.2 and Anxiety associated with depression F41.8 [place] [address] [address] Oct, Unspecified mood [affective] disorder F39 and Anxiety disorder, unspecified F41.9 [facility] [address] [id number] [address] [place] [address] Oct, Hyperlipemia E78.5 [facility] [address] [facility] [id number] [address] [place] [address] Oct, Essential hypertension I10 [facility] [address] [place] [id number] [address] [place] [address] Oct, [facility] [address] [facility] [id number] [address] [place] [address] Oct, Essential hypertension I10 ; Idiopathic peripheral neuropathy G60.9 ; Low back pain M54.5 ; Hx of cervical spine surgery Z98.89 ; Pain in right hand M79.641 ; Pain of left hand M79.642 ; Pain in left foot M79.672 ; Pain in right foot M79.671 ; Erectile dysfunction, unspecified erectile dysfunction type N52.9 and Anger R45.4 [facility] [address] [facility] [id number] [address] [place] [address] Sep, [facility] [address] [facility] [id number] [address] [place] [address] Jul, [facility] [address] [facility] [id number] [address] [place] [address] Jun, [facility] [address] [facility] [id number] [address] [place] [address] May, [facility] [address] [facility] [id number] [address] [place] [address] Apr, [facility] [address] [facility] [id number] [address] [place] [address] March, [facility] [address] [facility] [id number] [address] [place] [address] 14 Feb, 2015 [facility] [address] [facility] [id number] [address] [place] [address] Feb, [facility] [address] [facility] [id number] [address] [place] [address] Jan, [facility] [address] [id number] [address] [place] [address], [place] [address] Jan, [facility] [address] [id number] [address] [place] [address], [place] [address] Nov, [facility] [address] [id number] [address] [place] [address], [place] [address] Nov, [facility] [address] [id number] [address] [place] [address], [place] [address] Nov, [facility] [address] [id number] [address] [place] [address], [place] [address] Nov, [facility] [address] [id number] [address] [place] [address], [place] [address] Nov, [facility] [address] [id number] [address] [place] [address], [place] [address] Nov, [facility] [address] [id number] [address] [place] [address], [place] [address] Oct, [facility] [address] [id number] [address] [place] [address], [place] [address] Oct, [facility] [address] [id number] [address] [place] [address], [place] [address] Oct, [facility] [address] [id number] [address] [place] [address], [place] [address] Oct, [facility] [address] [id number] [address] [place] [address], [place] [address] Sep, [facility] [address] [id number] [address] [place] [address], [place] [address] Sep, [facility] [address] [id number] [address] [place] [address], [place] [address] Sep, [facility] [address] [id number] [address] [place] [address], [place] [address] Sep, [facility] [address] [id number] [address] [place] [address], [place] [address] 10 Sep, 2014 [facility] [address] [id number] [address] [place] [address], [place] [address] 16 Aug, 2014 [facility] [address] [id number] [address] [place] [address], [place] [address] 16 Aug, 2014 [facility] [address] [id number] [address] [place] [address], [place] [address] 15 Aug, 2014 [facility] [address] [id number] [address] [place] [address], [place] [address] 15 Aug, 2014 [facility] [address] [id number] [address] [place] [address], [place] [address] 15 Aug, 2014 [facility] [address] [id number] [address] [place] [address], [place] [address] 15 Aug, 2014 [facility] [address] [id number] [address] [place] [address], [place] [address] 13 Aug, 2014 [facility] [address] [id number] [address] [place] [address], [place] [address] 07 Aug, 2014 [facility] [address] [id number] [address] [place] [address], [place] [address] 07 Aug, 2014 [facility] [address] [id number] [address] [place] [address], [place] [address] 06 Aug, 2014 [facility] [address] [id number] [address] [place] [address], [place] [address] 06 Aug, 2014 [facility] [address] [id number] [address] [place] [address], [place] [address] 19 Jul, 2013 [facility] [address] [id number] [address] [place] [address], [place] [address] 19 Jul, 2013 [facility] [address] [id number] [address] [place] [address], [place] [address] 18 Jul, 2013 [facility] [address] [id number] [address] [place] [address], [place] [address] Jul, [facility] [address] [id number] [address] [place] [address], [place] [address] Jun, [facility] [address] [id number] [address] [place] [address], [place] [address] Jun, [facility] [address] [id number] [address] [place] [address], [place] [address] Jun, [facility] [address] [id number] [address] [place] [address], [place] [address] Jun, [facility] [address] [id number] [address] [place] [address], [place] [address] Jun, [facility] [address] [id number] [address] [place] [address], [place] [address] Jun, [facility] [address] [id number] [address] [place] [address], [place] [address] May, [facility] [address] [id number] [address] [place] [address], [place] [address] May, [facility] [address] [id number] [address] [place] [address], [place] [address] May, [facility] [address] [id number] [address] [place] [address], [place] [address] May, [facility] [address] [id number] [address] [place] [address], [place] [id number] May, [facility] [address] [id number] [address] [place] [address], [place] [address] May, [facility] [address] [id number] [address] [place] [address], [place] [address] May, [facility] [address] [id number] [address] [place] [address], [place] [address] May, [facility] [address] [id number] [address] [place] [address], [place] [address] May, [facility] [address] [id number] [address] [place] [address], [place] [address] May, [facility] [address] [id number] [address] [place] [address], [place] [address] May, [facility] [address] [id number] [address] [place] [address], [place] [address] May, [facility] [address] [id number] [address] [place] [address], [place] [address] Apr, [facility] [address] [id number] [address] [place] [address], [place] [address] Apr, [facility] [address] [id number] [address] [place] [address], [place] [address] March, [facility] [address] [id number] [address] [place] [address], [place] [address] March, [facility] [address] [id number] [address] [place] [address], [place] [address] March, [facility] [address] [id number] [address] [place] [address], [place] [address] March, [facility] [address] [id number] [address] [place] [address], [place] [address] Feb, [facility] [address] [id number] [address] [place] [address], [place] [address] Feb, [facility] [address] [id number] [address] [place] [address], [place] [address] Jan, [facility] [address] [id number] [address] [place] [address], [place] [address] Jan, [facility] [address] [id number] [address] [place] [address], [place] [address] Jan, [facility] [address] [id number] [address] [place] [address], [place] [address] Jan, [facility] [address] [id number] [address] [place] [address], [place] [address] Dec, [facility] [address] [id number] [address] [place] [address], [place] [address] Dec, [facility] [address] [id number] [address] [place] [address], [place] [address] Nov, [facility] [address] [id number] [address] [place] [address], [place] [address] Nov, [facility] [address] [id number] [address] [place] [address], [place] [address] Nov, [facility] [address] [id number] [address] [place] [address], [place] [address] Nov, [facility] [address] [id number] [address] [place] [address], [place] [address] Oct, [facility] [address] [id number] [address] [place] [address], [place] [address] Oct, [facility] [address] [id number] [address] [place] [address], [place] [address] Sep, [facility] [address] [id number] [address] [place] [address], [place] [address] Sep, [facility] [address] [id number] [address] [place] [address], [place] [address] Jul, [facility] [address] [id number] [address] [place] [address], [place] [address] Jul, [facility] [address] [id number] [address] [place] [address], [place] [address] Jul, [facility] [address] [id number] [address] [place] [address], [place] [address] Jun, [facility] [address] [id number] [address] [place] [address], [place] [address] Jun, [facility] [address] [id number] [address] [place] [address], [place] [address] May, [facility] [address] [id number] [address] [place] [id number] May, [facility] [place] [address] [id number] [address] [place] [address], [place] [address] May, [facility] [place] [address] [id number] [address] [place] [id number] March, [facility] [place] [address] [id number] [address] [place] [address], [place] [address] Jan, [facility] [place] [address] [id number] [address] [place] [id number] Jan, [facility] [place] [address] [id number] [address] [place] [address], [place] [address] Jan, [facility] [place] [address] [id number] [address] [place] [id number] Dec, [facility] [place] [address] [id number] [address] [place] [id number] May, [facility] [place] [address] [id number] [address] [place] [id number] March, [facility] [place] [address] [id number] [address] [place] [id number] Jan, [facility] [place] [address] [id number] [address] [place] [id number] Aug, [facility] [place] [address] [id number] [address] [place] [id number] Aug, [facility] [place] [address] [id number] [address] [place] [id number] Aug, [facility] [place] [address] [id number] [address] [place] [id number] Jun, [facility] [place] [address] [id number] [address] [place] [id number] 14 May, 2011 [facility] [place] [address] [id number] [address] [place] [id number] Oct, IMMUNIZATIONS No Known Immunizations SOCIAL HISTORY [...]
--- OUTSIDE RECORDS SUMMARY | 2020-02-05 10:59 | XMS REPORT ---
Author Author GERBER Jelani CATALAN Organization [facility] Address [address] [place] [address] Care Team Providers Care Office Machine Service Supervisor Name Role Phone GERBERHOSSEIN CASE Unavailable PROBLEMS Type Condition ICD9-CM Code OPC07-VO Code Onset Dates Condition S tatus SNOMED Code Problem Anger R45.4 Active 38069837 Problem Hx of cervical spine surgery Z98.89 A ctive 084895853 Problem Pain in right foot M79.671 Active 4 4577681 Problem Erectile dysfunction, unspecified erectile dysfunction typ e N52.9 Active 131954976 Problem Candidal dermatitis B37.2 Active 08467509 Problem Gastroesophageal reflux disease with esophagitis K 21.0 Active 016914895 Problem Anxiety disorder, unspecified F41.9 Active 046059227 Problem Mixed hyperlipidemia E78.2 Active 235817766 Problem 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 Active 917088797 Problem Unspecified mood [affective] disorder F39 Active 307624672 Problem Other stimulant dependence, 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 Active 907845497 Problem Marijuana abuse F12.10 Active 3734 4009 Problem Drug-induced erectile dysfunction N52.2 Active 120592020 Problem Cannabis dependence, uncomplicated F12.20 Active 29486025 Problem Wheezing R06.2 Active 82870894 Problem Psychophysiological insomnia F51.04 A ctive 180474313 Problem Pure hypercholesterolemia E78.00 Acti ve 087370943 Problem Anxiety F41.9 Active 29661204 Problem Idiopathic peripheral neuropathy G60.9 Active 10341777 Problem Polydipsia R63.1 Active 02318017 Problem Low back pain M54.5 Active 085886 005 Problem Essential hypertension I10 Active 14981135 Problem Pain in right knee M25.561 Active 3 [id number] Problem Mood disorder F39 Active 561727 05 Problem Other chronic pain G89.29 Active 8 9754741 Problem Primary osteoarthritis of left hip M16.12 Active 533490667 ALLERGIES No Information ENCOUNTERS Encounter Location Date Diagnosis [facility] [address] [id number] [address] [place] [address] Sep, [facility] [address] [facility] [id number] [address] [place] [address] Jul, Separation of left acromiocl avicular joint, initial encounter S43.102A [facility] [address] [facility] [id number] [address] [place] [address] March, [facility] [address] [facility] [id number] [address] [place] [address] March, Essential hypertension I10 [facility] [address] [facility] [id number] [address] [place] [address] March, [facility] [address] [facility] [id number] [address] [place] [address] Feb, [facility] [address] [facility] [id number] [address] [place] [address] Feb, [facility] [address] [facility] [id number] [address] [place] [address] 16 Feb, 2019 [facility] [address] [facility] [id number] [address] [place] [address] 15 Feb, 2019 Prediabetes R73.03 [facility] [address] [facility] [id number] [address] [place] [address] Jan, [facility] [address] [facility] [id number] [address] [place] [address] Jan, [facility] [address] [facility] [id number] [address] [place] [address] 13 Jan, 2019 Polydipsia R63.1 ; Periphera l edema R60.9 ; Pre-diabetes R73.03 and Tongue lesion K14.8 [facility] [address] [facility] [id number] [address] [place] [address] Sep, Other chronic pain G89.29 [facility] [address] [facility] [id number] [address] [place] [address] Sep, Acute low back pain, unspeci fied back pain laterality, with sciatica presence unspecified M54.5 [facility] [address] [id number] [address] [place] [address] Sep, Low vitamin D level R79.89 [facility] [address] [id number] [address] [place] [address] Aug, Acute low back pain, unspeci fied back pain laterality, with sciatica presence unspecified M54.5 and Primary osteoarthritis of left hip M16.12 [facility] [address] [id number] [address] [place] [address] Aug, [facility] [address] [id number] [address] [place] [address] Jun, [place] [address] [id number] [address] [place] [address] Jun, Other chronic pain G89.29 an d Pain in right knee M25.561 [facility] [address] [id number] [address] [place] [address] May, Primary osteoarthritis of le ft hip M16.12 ; Pain in left hip M25.552 ; Other acute postprocedural pain G89.18 and Anxiety F41.9 [facility] [address] [id number] [address] [place] [address] May, [facility] [address] [id number] [address] [place] [address] Apr, Pain in right knee M25.561 a nd Mood disorder F39 [facility] [address] [id number] [address] [place] [address] Apr, [facility] [address] [id number] [address] [place] [id number] March, [facility] [address] [id number] [address] [place] [id number] March, Encounter for dental exam an d cleaning w/o abnormal findings Z01.20 [facility] [address] [id number] [address] [place] [address] [id number] March, Dental examination Z01.20 [facility] [address] [id number] [address] [place] [id number] March, Dental examination Z01.20 [facility] [address] [id number] [address] [place] [address] March, [facility] [address] [id number] [address] [place] [address] March, [facility] [address] [id number] [address] [place] [address] Feb, [facility] [address] [id number] [address] [place] [address] Feb, Primary osteoarthritis of le ft hip M16.12 [facility] [address] [id number] [address] [place] [address] Feb, Other chronic pain G89.29 an d Pain in left hip M25.552 [facility] [address] [id number] [address] [place] [address] Feb, Acute pain of left hip M25.5 52 [facility] [address] [id number] [address] [place] [address] Feb, Mood disorder F39 and Pain i n right knee M25.561 [facility] [address] [id number] [address] [place] [address] Jan, Other chronic pain G89.29 [facility] [address] [id number] [address] [place] [address] Jan, Mood disorder F39 [facility] [address] [id number] [address] [place] [address] Jan, Pain in right knee M25.561 [facility] [address] [id number] [address] [place] [address] Jan, Pain in left hip M25.552 and Other chronic pain G89.29 [place] [id number] [place] [address] Jan, Acute pain of left hip M25.5 52 [place] [address] [place] [id number] [place] [address] Jan, Acute pain of left hip M25.5 52 [place] [address] [address] Jan, Mood disorder F39 and Acute pain of left hip M25.552 [place] [address] [address] Nov, Mood disorder F39 [place] [address] [address] Oct, Essential hypertension I10 ; Mixed hyperlipidemia E78.2 and Low back pain M54.5 [facility] [address] [place] [id number] [place] [id number] May, [place] [address] [address] Apr, Essential hypertension I10 ; Anger R45.4 ; Mixed hyperlipidemia E78.2 ; Drug-induced erectile dysfunction N52.2 ; Gastroesophageal reflux disease with esophagitis K21.0 ; Pure hypercholesterolemia E78.00 ; Pain in right knee M25.561 ; Psychophysiological insomnia F51.04 and Wheezing R06.2 [place] [address] [place] [address] March, Hx of cervical spine surgery Z98.89 [place] [address] [address] March, [place] [address] [address] Feb, Anxiety associated with depr ession F41.8 [place] [address] [facility] [id number] [address] [place] [address] Jan, Anxiety associated with depr ession F41.8 [facility] [address] [facility] [id number] [address] [place] [address] Dec, [facility] [address] [place] [id number] [address] [place] [address] Dec, [facility] [address] [place] [id number] [address] [place] [address] Dec, Essential hypertension I10 ; Erectile dysfunction, unspecified erectile dysfunction type N52.9 and Hyperlipemia E78.5 [facility] [address] [place] [id number] [place] [address] Nov, Essential hypertension I10 ; Hx of cervical spine surgery Z98.89 ; Erectile dysfunction, unspecified erectile dysfunction type N52.9 ; Idiopathic peripheral neuropathy G60.9 ; Anger R45.4 ; Anxiety associated with depression F41.8 ; Hyperlipemia E78.5 ; Wheezing R06.2 and Has daytime drowsiness R40.0 [facility] [address] [facility] [id number] [address] [place] [address] Nov, [facility] [address] [place] [id number] [address] [place] [address] Nov, [facility] [address] [place] [id number] [address] [place] [address] Sep, [facility] [address] [place] [id number] [address] [place] [address] Sep, Acute midline low back pain without sciatica M54.5 [facility] [address] [place] [id number] [address] [place] [address] Sep, Acute bilateral low back ekta n without sciatica M54.5 [facility] [address] [place] [id number] [address] [place] [address] Aug, [facility] [address] [place] [id number] [address] [place] [address] Jun, Wheezing R06.2 ; Candidal de rmatitis B37.2 ; Essential hypertension I10 ; Erectile dysfunction, unspecified erectile dysfunction type N52.9 ; Idiopathic peripheral neuropathy G60.9 ; Mixed hyperlipidemia E78.2 and Other stimulant dependence, 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 [place] [address] [address] March, Essential hypertension I10 ; Hx of cervical spine surgery Z98.89 ; Idiopathic peripheral neuropathy G60.9 ; Mixed hyperlipidemia E78.2 ; Anger R45.4 ; Drug-induced erectile dysfunction N52.2 and Gastroesophageal reflux disease with esophagitis K21.0 [place] [address] [address] Feb, [place] [address] [address] Dec, Low back pain M54.5 [place] [address] [address] Dec, [place] [address] [address] Dec, Unspecified mood [affective] disorder F39 ; Anxiety disorder, unspecified F41.9 ; Other stimulant dependence, 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 and Cannabis dependence, uncomplicated F12.20 [place] [address] [address] Dec, Essential hypertension I10 ; Hyperlipemia E78.5 ; Erectile dysfunction, unspecified erectile dysfunction type N52.9 ; Anger R45.4 ; Mixed hyperlipidemia E78.2 ; Anxiety associated with depression F41.8 ; Elevated serum creatinine R79.89 ; 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 and Marijuana abuse F12.10 [place] [address] [place] [id number] [address] [place] [address] Oct, Essential hypertension I10 ; Idiopathic peripheral neuropathy G60.9 ; Low back pain M54.5 ; Hx of cervical spine surgery Z98.89 ; Erectile dysfunction, unspecified erectile dysfunction type N52.9 ; Anger R45.4 ; Mixed hyperlipidemia E78.2 and Anxiety associated with depression F41.8 [facility] [address] [address] Oct, Unspecified mood [affective] disorder F39 and Anxiety disorder, unspecified F41.9 [facility] [address] [address] Oct, Hyperlipemia E78.5 [facility] [address] [place] [id number] [place] [address] Oct, Essential hypertension I10 [place] [address] [address] Oct, [facility] [address] [address] Oct, Essential hypertension I10 ; Idiopathic peripheral neuropathy G60.9 ; Low back pain M54.5 ; Hx of cervical spine surgery Z98.89 ; Pain in right hand M79.641 ; Pain of left hand M79.642 ; Pain in left foot M79.672 ; Pain in right foot M79.671 ; Erectile dysfunction, unspecified erectile dysfunction type N52.9 and Anger R45.4 [facility] [address] [address] Sep, [facility] [address] [place] [id number] [place] [address] Jul, [facility] [address] [place] [id number] [address] [place] [address] Jun, [facility] [address] [address] May, [facility] [address] [place] [id number] [address] [place] [address] Apr, [facility] [address] [address] March, [facility] [address] [id number] [address] [place] [address], [place] [address] Feb, [facility] [address] [id number] [address] [place] [address], [place] [address] Feb, [facility] [address] [id number] [address] [place] [address], [place] [address] Jan, [facility] [address] [id number] [address] [place] [address], [place] [address] Jan, [facility] [address] [id number] [address] [place] [address], [place] [address] Nov, [facility] [address] [id number] [address] [place] [address], [place] [address] Nov, [facility] [address] [id number] [address] [place] [address], [place] [address] Nov, [facility] [address] [id number] [address] [place] [address], [place] [address] Nov, [facility] [address] [id number] [address] [place] [address], [place] [address] Nov, [facility] [address] [id number] [address] [place] [address], [place] [address] Nov, [facility] [address] [id number] [address] [place] [address], [place] [address] Oct, [facility] [address] [id number] [address] [place] [address], [place] [address] Oct, [facility] [address] [id number] [address] [place] [address], [place] [address] Oct, [facility] [address] [id number] [address] [place] [address], [place] [address] Oct, [facility] [address] [id number] [address] [place] [address], [place] [address] Sep, [facility] [address] [id number] [address] [place] [address] [place] [address] Sep, [facility] [address] [id number] [address] [place] [address], [place] [address] Sep, [facility] [address] [id number] [address] [place] [address], [place] [address] Sep, [facility] [address] [id number] [address] [place] [address], [place] [address] Sep, [facility] [address] [id number] [address] [place] [address], [place] [address] 16 Aug, 2014 [facility] [address] [id number] [address] [place] [address], [place] [address] 16 Aug, 2014 [facility] [address] [id number] [address] [place] [address], [place] [address] 15 Aug, 2014 [facility] [address] [id number] [address] [place] [address], [place] [address] 15 Aug, 2014 [facility] [address] [id number] [address] [place] [address], [place] [address] 15 Aug, 2014 [facility] [address] [id number] [address] [place] [address], [place] [address] 15 Aug, 2014 [facility] [address] [id number] [address] [place] [address], [place] [address] 13 Aug, 2014 [facility] [address] [id number] [address] [place] [address], [place] [address] 07 Aug, 2014 [facility] [address] [id number] [address] [place] [address] 07 Aug, 2014 [facility] [address] [id number] [address] [place] [address], [place] [address] 06 Aug, 2014 [facility] [address] [id number] [address] [place] [address], [place] [address] 06 Aug, 2014 [facility] [address] [id number] [address] [place] [address], [place] [address] 19 Jul, 2014 [facility] [address] [id number] [facility] [place] [address] Jul, [facility] [address] [id number] [address] [place] [address], [place] [address] Jul, [facility] [address] [id number] [facility] [place] [address] Jul, [facility] [address] [id number] [address] [place] [address], [place] [address] Jun, [facility] [address] [id number] [address] [place] [address], [place] [address] Jun, [facility] [address] [id number] [address] [place] [address], [place] [address] Jun, [facility] [address] [id number] [address] [place] [address], [place] [address] Jun, [facility] [address] [id number] [address] [place] [address], [place] [address] Jun, [facility] [address] [id number] [address] [place] [address], [place] [address] Jun, [facility] [address] [id number] [address] [place] [address], [place] [address] May, [facility] [address] [id number] [address] [place] [address], [place] [address] May, [facility] [address] [id number] [address] [place] [address], [place] [address] May, [facility] [address] [id number] [address] [place] [address], [place] [address] May, [facility] [address] [id number] [address] [place] [address], [place] [id number] May, [facility] [address] [id number] [address] [place] [address], [place] [address] May, [facility] [address] [id number] [address] [place] [address], [place] [address] May, [facility] [address] [id number] [facility] [place] [address] May, [facility] [address] [id number] [facility] [place] [address] May, [facility] [address] [id number] [address] [place] [address], [place] [address] May, [facility] [address] [id number] [address] [place] [address], [place] [address] May, [facility] [address] [id number] [address] [place] [address], [place] [address] May, [facility] [address] [id number] [address] [place] [address], [place] [address] Apr, [facility] [address] [id number] [address] [place] [address], [place] [address] Apr, [facility] [address] [id number] [address] [place] [address], [place] [address] March, [facility] [address] [id number] [address] [place] [address], [place] [address] March, [facility] [address] [id number] [address] [place] [address], [place] [address] March, [facility] [address] [id number] [address] [place] [address], [place] [address] March, [facility] [address] [id number] [address] [place] [address], [place] [address] Feb, [facility] [address] [id number] [address] [place] [address], [place] [address] Feb, [facility] [address] [id number] [address] [place] [address], [place] [address] Jan, [facility] [address] [id number] [address] [place] [address], [place] [address] Jan, [facility] [address] [id number] [address] [place] [address], [place] [address] Jan, [facility] [address] [id number] [address] [place] [address], [place] [address] Jan, [facility] [address] [id number] [address] [place] [address], [place] [address] Dec, [facility] [address] [id number] [address] [place] [address], [place] [address] Dec, [facility] [address] [id number] [address] [place] [address], [place] [address] Nov, [facility] [address] [id number] [address] [place] [address], [place] [address] Nov, [facility] [address] [id number] [address] [place] [address], [place] [address] Nov, [facility] [address] [id number] [address] [place] [address], [place] [address] Nov, [facility] [address] [id number] [address] [place] [address], [place] [address] Oct, [facility] [address] [id number] [address] [place] [address], [place] [address] Oct, [facility] [address] [id number] [address] [place] [address], [place] [address] Sep, [facility] [address] [id number] [address] [place] [address], [place] [address] 14 Sep, 2013 [facility] [address] [id number] [address] [place] [address], [place] [address] 26 Jul, 2013 [facility] [address] [id number] [address] [place] [address], [place] [address] 19 Jul, 2013 [facility] [address] [id number] [address] [place] [address], [place] [address] Jul, [facility] [address] [id number] [address] [place] [address], [place] [address] Jun, [facility] [address] [id number] [address] [place] [address], [place] [address] Jun, [facility] [address] [id number] [address] [place] [address], [place] [address] May, [facility] [address] [id number] [address] [place] [address], [place] [address] May, [facility] [address] [id number] [address] [place] [address], [place] [address] May, [facility] [address] [id number] [address] [place] [address], [place] [address] March, [facility] [address] [id number] [address] [place] [address], [place] [address] Jan, [facility] [address] [id number] [address] [place] [address], [place] [address] Jan, [facility] [address] [id number] [address] [place] [address], [place] [id number] Jan, [facility] [address] [id number] [address] [place] [address], [place] [address] Dec, [facility] [address] [id number] [address] [place] [address], [place] [address] May, [facility] [address] [id number] [address] [place] [address], [place] [address] March, [facility] [address] [id number] [address] [place] [address], [place] [address] Jan, [facility] [address] [id number] [address] [place] [address], [place] [address] 14 Aug, 2011 [facility] [address] [id number] [address] [place] [address], [place] [address] Aug, [facility] [address] [id number] [address] [place] [id number] Aug, [facility] [address] [id number] [address] [place] [id number] Jun, [facility] [address] [facility] [id number] [address] [place] [id number] May, [facility] [address] [facility] [id number] [address] [place] [id number] Oct, IMMUNIZATIONS No Known Immunizations SOCIAL HISTORY Never Assessed REASON FOR VISIT PLAN OF CARE VITAL SIGNS Height 66 in 2014-05-13 Weight 182.31 lbs 2014-05-13 Temperature 98.4 degrees Fahrenheit 2014-05-13 Heart Rate 72 bpm 2014-05-13 Respiratory Rate 20 2014-05-13 Blood pressure systolic 140 mmHg 2014-05-13 Blood pressure diastolic 92 mmHg 2014-05-13 MEDICATIONS Unknown Medications RESULTS No Results PROCEDURES [...]
--- OUTSIDE RECORDS SUMMARY | 2020-02-05 10:59 | XMS REPORT ---
Author Author Jelani BHANDARI Organization [facility] Address [address] [place] [address] Care Team Providers Care Sports Bookmaker Name Role Phone BÁRBARA BHANDARI Unavailable PROBLEMS Type Condition ICD9-CM Code MAG57-ZS Code Onset Dates Condition S tatus SNOMED Code Problem Anger R45.4 Active 99164962 Problem Hx of cervical spine surgery Z98.89 A ctive 301379005 Problem Pain in right foot M79.671 Active 4 5117152 Problem Erectile dysfunction, unspecified erectile dysfunction typ e N52.9 Active 061947427 Problem Candidal dermatitis B37.2 Active 34649502 Problem Gastroesophageal reflux disease with esophagitis K 21.0 Active 528992695 Problem Anxiety disorder, unspecified F41.9 Active 597628288 Problem Mixed hyperlipidemia E78.2 Active 103195049 Problem 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 Active 782438229 Problem Unspecified mood [affective] disorder F39 Active 475023028 Problem Other stimulant dependence, 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 Active 072755235 Problem Marijuana abuse F12.10 Active 3734 4009 Problem Drug-induced erectile dysfunction N52.2 Active 711251699 Problem Cannabis dependence, uncomplicated F12.20 Active 71464086 Problem Wheezing R06.2 Active 60647642 Problem Psychophysiological insomnia F51.04 A ctive 296743980 Problem Pure hypercholesterolemia E78.00 Acti ve 059448190 Problem Anxiety F41.9 Active 98684505 Problem Idiopathic peripheral neuropathy G60.9 Active 58665711 Problem Polydipsia R63.1 Active 86089818 Problem Low back pain M54.5 Active 881194 005 Problem Essential hypertension I10 Active 19296663 Problem Pain in right knee M25.561 Active 3 [id number] Problem Mood disorder F39 Active 115815 05 Problem Other chronic pain G89.29 Active 8 7710579 Problem Primary osteoarthritis of left hip M16.12 Active 098420937 ALLERGIES No Information ENCOUNTERS Encounter Location Date Diagnosis [facility] [address] [facility] [id number] [address] [place] [address] March, [facility] [address] [facility] [id number] [address] [place] [address] March, Essential hypertension I10 [facility] [address] [facility] [id number] [address] [place] [address] March, [facility] [address] [facility] [id number] [address] [place] [address] Feb, [facility] [address] [facility] [id number] [address] [place] [address] Feb, [facility] [address] [facility] [id number] [address] [place] [address] Feb, [facility] [address] [place] [id number] [place] [address] Feb, Prediabetes R73.03 [facility] [address] [facility] [id number] [address] [place] [address] Jan, [facility] [address] [address] Jan, [facility] [address] [place] [id number] [address] [place] [address] Jan, Polydipsia R63.1 ; Periphera l edema R60.9 ; Pre-diabetes R73.03 and Tongue lesion K14.8 [facility] [address] [facility] [id number] [address] [place] [address] Sep, Other chronic pain G89.29 [facility] [address] [place] [id number] [address] [place] [address] Sep, Acute low back pain, unspeci fied back pain laterality, with sciatica presence unspecified M54.5 [facility] [address] [place] [id number] [address] [place] [address] Sep, Low vitamin D level R79.89 [facility] [address] [place] [id number] [address] [place] [address] Aug, Acute low back pain, unspeci fied back pain laterality, with sciatica presence unspecified M54.5 and Primary osteoarthritis of left hip M16.12 [facility] [address] [id number] [address] [place] [address] Aug, [place] [address] [id number] [address] [place] [address] Jun, [place] [address] [id number] [address] [place] [address] Jun, Other chronic pain G89.29 an d Pain in right knee M25.561 [place] [address] [id number] [address] [place] [address] May, Primary osteoarthritis of le ft hip M16.12 ; Pain in left hip M25.552 ; Other acute postprocedural pain G89.18 and Anxiety F41.9 [place] [address] [id number] [address] [place] [address] May, [place] [address] [id number] [address] [place] [address] Apr, Pain in right knee M25.561 a nd Mood disorder F39 [place] [address] [id number] [address] [place] [address] Apr, [facility] [address] [id number] [address] [place] [address] [id number] March, [facility] [address] [id number] [address] [place] [address] [id number] March, Encounter for dental exam an d cleaning w/o abnormal findings Z01.20 [facility] [address] [id number] [address] [place] [address] [id number] March, Dental examination Z01.20 [facility] [address] [id number] [address] [place] [address] [id number] 11 May, 2018 Dental examination Z01.20 [facility] [address] [id number] [address] [place] [address] March, [facility] [address] [id number] [address] [place] [address] March, [facility] [address] [id number] [address] [place] [address] Feb, [facility] [address] [id number] [address] [place] [address] Feb, Primary osteoarthritis of le ft hip M16.12 [facility] [address] [id number] [address] [place] [address] Feb, Other chronic pain G89.29 an d Pain in left hip M25.552 [facility] [address] [id number] [address] [place] [address] Feb, Acute pain of left hip M25.5 52 [facility] [address] [id number] [address] [place] [address] Feb, Mood disorder F39 and Pain i n right knee M25.561 [facility] [address] [id number] [address] [place] [address] Jan, Other chronic pain G89.29 [facility] [address] [id number] [address] [place] [address] Jan, Mood disorder F39 [facility] [address] [id number] [address] [place] [address] Jan, Pain in right knee M25.561 [facility] [address] [id number] [address] [place] [address] Jan, Pain in left hip M25.552 and Other chronic pain G89.29 [facility] [address] [id number] [address] [place] [address] Jan, Acute pain of left hip M25.5 52 [facility] [address] [address] Jan, Acute pain of left hip M25.5 52 [place] [address] [address] Jan, Mood disorder F39 and Acute pain of left hip M25.552 [place] [address] [address] Nov, Mood disorder F39 [place] [address] [address] Oct, Essential hypertension I10 ; Mixed hyperlipidemia E78.2 and Low back pain M54.5 [facility] [address] [id number] May, [place] [address] [address] Apr, Essential hypertension I10 ; Anger R45.4 ; Mixed hyperlipidemia E78.2 ; Drug-induced erectile dysfunction N52.2 ; Gastroesophageal reflux disease with esophagitis K21.0 ; Pure hypercholesterolemia E78.00 ; Pain in right knee M25.561 ; Psychophysiological insomnia F51.04 and Wheezing R06.2 [place] [address] [address] March, Hx of cervical spine surgery Z98.89 [place] [address] [address] March, [place] [address] [address] Feb, Anxiety associated with depr ession F41.8 [place] [address] [address] Jan, Anxiety associated with depr ession F41.8 [place] [address] [address] Dec, [place] [address] [address] Dec, [facility] [address] [place] [id number] [address] [place] [address] Dec, Essential hypertension I10 ; Erectile dysfunction, unspecified erectile dysfunction type N52.9 and Hyperlipemia E78.5 [facility] [address] [place] [id number] [address] [place] [address] Nov, Essential hypertension I10 ; Hx of cervical spine surgery Z98.89 ; Erectile dysfunction, unspecified erectile dysfunction type N52.9 ; Idiopathic peripheral neuropathy G60.9 ; Anger R45.4 ; Anxiety associated with depression F41.8 ; Hyperlipemia E78.5 ; Wheezing R06.2 and Has daytime drowsiness R40.0 [facility] [address] [id number] Nov, [place] [address] [address] Nov, [facility] [address] [place] [id number] [address] [place] [address] Sep, [facility] [address] [address] Sep, Acute midline low back pain without sciatica M54.5 [facility] [address] [place] [id number] [place] [address] Sep, Acute bilateral low back ekta n without sciatica M54.5 [facility] [address] [place] [id number] [address] [place] [address] Aug, [facility] [address] [place] [id number] [address] [place] [address] Jun, Wheezing R06.2 ; Candidal de rmatitis B37.2 ; Essential hypertension I10 ; Erectile dysfunction, unspecified erectile dysfunction type N52.9 ; Idiopathic peripheral neuropathy G60.9 ; Mixed hyperlipidemia E78.2 and Other stimulant dependence, 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 [facility] [address] [address] March, Essential hypertension I10 ; Hx of cervical spine surgery Z98.89 ; Idiopathic peripheral neuropathy G60.9 ; Mixed hyperlipidemia E78.2 ; Anger R45.4 ; Drug-induced erectile dysfunction N52.2 and Gastroesophageal reflux disease with esophagitis K21.0 [place] [address] [address] Feb, [place] [address] [address] Dec, Low back pain M54.5 [place] [address] [address] Dec, [place] [address] [address] Dec, Essential hypertension I10 ; Hyperlipemia E78.5 ; Erectile dysfunction, unspecified erectile dysfunction type N52.9 ; Anger R45.4 ; Mixed hyperlipidemia E78.2 ; Anxiety associated with depression F41.8 ; Elevated serum creatinine R79.89 ; 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 and Marijuana abuse F12.10 [place] [address] [address] Dec, Unspecified mood [affective] disorder F39 ; Anxiety disorder, unspecified F41.9 ; Other stimulant dependence, 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 and Cannabis dependence, uncomplicated F12.20 [place] [address] [address] Oct, Essential hypertension I10 ; Idiopathic peripheral neuropathy G60.9 ; Low back pain M54.5 ; Hx of cervical spine surgery Z98.89 ; Erectile dysfunction, unspecified erectile dysfunction type N52.9 ; Anger R45.4 ; Mixed hyperlipidemia E78.2 and Anxiety associated with depression F41.8 [place] [address] [address] Oct, Unspecified mood [affective] disorder F39 and Anxiety disorder, unspecified F41.9 [facility] [address] [id number] [address] [place] [address] Oct, Hyperlipemia E78.5 [facility] [address] [facility] [id number] [address] [place] [address] Oct, Essential hypertension I10 [facility] [address] [place] [id number] [address] [place] [address] Oct, [facility] [address] [facility] [id number] [address] [place] [address] Oct, Essential hypertension I10 ; Idiopathic peripheral neuropathy G60.9 ; Low back pain M54.5 ; Hx of cervical spine surgery Z98.89 ; Pain in right hand M79.641 ; Pain of left hand M79.642 ; Pain in left foot M79.672 ; Pain in right foot M79.671 ; Erectile dysfunction, unspecified erectile dysfunction type N52.9 and Anger R45.4 [facility] [address] [facility] [id number] [address] [place] [address] Sep, [facility] [address] [facility] [id number] [address] [place] [address] Jul, [facility] [address] [facility] [id number] [address] [place] [address] Jun, [facility] [address] [facility] [id number] [address] [place] [address] May, [facility] [address] [facility] [id number] [address] [place] [address] Apr, [facility] [address] [facility] [id number] [address] [place] [address] March, [facility] [address] [facility] [id number] [address] [place] [address] 14 Feb, 2015 [facility] [address] [facility] [id number] [address] [place] [id number] Feb, [facility] [address] [facility] [id number] [address] [place] [address] Jan, [facility] [address] [id number] [address] [place] [address], [place] [address] Jan, [facility] [address] [id number] [address] [place] [address], [place] [address] Nov, [facility] [address] [id number] [address] [place] [address], [place] [address] Nov, [facility] [address] [id number] [address] [place] [address], [place] [address] Nov, [facility] [address] [id number] [address] [place] [address], [place] [address] Nov, [facility] [address] [id number] [address] [place] [address], [place] [address] Nov, [facility] [address] [id number] [address] [place] [address], [place] [address] Nov, [facility] [address] [id number] [address] [place] [address], [place] [address] Oct, [facility] [address] [id number] [address] [place] [address], [place] [address] Oct, [facility] [address] [id number] [address] [place] [address], [place] [address] Oct, [facility] [address] [id number] [address] [place] [address], [place] [address] Oct, [facility] [address] [id number] [address] [place] [address], [place] [address] Sep, [facility] [address] [id number] [address] [place] [address], [place] [address] Sep, [facility] [address] [id number] [address] [place] [address], [place] [address] Sep, [facility] [address] [id number] [address] [place] [address], [place] [address] Sep, [facility] [address] [id number] [address] [place] [address], [place] [address] 10 Sep, 2014 [facility] [address] [id number] [address] [place] [address], [place] [address] 16 Aug, 2014 [facility] [address] [id number] [address] [place] [address], [place] [address] 16 Aug, 2014 [facility] [address] [id number] [address] [place] [address], [place] [address] 15 Aug, 2014 [facility] [address] [id number] [address] [place] [address], [place] [address] 15 Aug, 2014 [facility] [address] [id number] [address] [place] [address], [place] [address] 15 Aug, 2014 [facility] [address] [id number] [address] [place] [address], [place] [address] 15 Aug, 2014 [facility] [address] [id number] [address] [place] [address], [place] [address] 13 Aug, 2014 [facility] [address] [id number] [address] [place] [address], [place] [address] 07 Aug, 2014 [facility] [address] [id number] [address] [place] [address], [place] [address] 07 Aug, 2014 [facility] [address] [id number] [address] [place] [address], [place] [address] 06 Aug, 2014 [facility] [address] [id number] [address] [place] [address], [place] [address] 06 Aug, 2014 [facility] [address] [id number] [address] [place] [address], [place] [address] 19 Jul, 2013 [facility] [address] [id number] [address] [place] [address], [place] [address] 19 Jul, 2013 [facility] [address] [id number] [address] [place] [address], [place] [address] 18 Jul, 2013 [facility] [address] [id number] [address] [place] [address], [place] [address] Jul, [facility] [address] [id number] [address] [place] [address], [place] [address] Jun, [facility] [address] [id number] [address] [place] [address], [place] [address] Jun, [facility] [address] [id number] [address] [place] [address], [place] [address] Jun, [facility] [address] [id number] [address] [place] [address], [place] [address] Jun, [facility] [address] [id number] [address] [place] [address], [place] [address] Jun, [facility] [address] [id number] [address] [place] [address], [place] [address] Jun, [facility] [address] [id number] [address] [place] [address], [place] [address] May, [facility] [address] [id number] [address] [place] [address], [place] [address] May, [facility] [address] [id number] [address] [place] [address], [place] [address] May, [facility] [address] [id number] [address] [place] [address], [place] [address] May, [facility] [address] [id number] [address] [place] [address], [place] [id number] May, [facility] [address] [id number] [address] [place] [address], [place] [address] May, [facility] [address] [id number] [address] [place] [address], [place] [address] May, [facility] [address] [id number] [address] [place] [address], [place] [address] May, [facility] [address] [id number] [address] [place] [address], [place] [address] May, [facility] [address] [id number] [address] [place] [address], [place] [address] May, [facility] [address] [id number] [address] [place] [address], [place] [address] May, [facility] [address] [id number] [address] [place] [address], [place] [address] May, [facility] [address] [id number] [address] [place] [address], [place] [address] Apr, [facility] [address] [id number] [address] [place] [address], [place] [address] Apr, [facility] [address] [id number] [address] [place] [address], [place] [address] March, [facility] [address] [id number] [address] [place] [address], [place] [address] March, [facility] [address] [id number] [address] [place] [address], [place] [address] March, [facility] [address] [id number] [address] [place] [address], [place] [address] March, [facility] [address] [id number] [address] [place] [address], [place] [address] Feb, [facility] [address] [id number] [address] [place] [address], [place] [address] Feb, [facility] [address] [id number] [address] [place] [address], [place] [address] Jan, [facility] [address] [id number] [address] [place] [address], [place] [address] Jan, [facility] [address] [id number] [address] [place] [address], [place] [address] Jan, [facility] [address] [id number] [address] [place] [address], [place] [address] Jan, [facility] [address] [id number] [address] [place] [address], [place] [address] Dec, [facility] [address] [id number] [address] [place] [address], [place] [address] Dec, [facility] [address] [id number] [address] [place] [address], [place] [address] Nov, [facility] [address] [id number] [address] [place] [address], [place] [address] Nov, [facility] [address] [id number] [address] [place] [address], [place] [address] Nov, [facility] [address] [id number] [address] [place] [address], [place] [address] Nov, [facility] [address] [id number] [address] [place] [address], [place] [address] Oct, [facility] [address] [id number] [address] [place] [address], [place] [address] Oct, [facility] [address] [id number] [address] [place] [address], [place] [address] Sep, [facility] [address] [id number] [address] [place] [address], [place] [address] Sep, [facility] [address] [id number] [address] [place] [address], [place] [address] Jul, [facility] [address] [id number] [address] [place] [address], [place] [address] Jul, [facility] [address] [id number] [address] [place] [address], [place] [address] Jul, [facility] [address] [id number] [address] [place] [address], [place] [address] Jun, [facility] [address] [id number] [address] [place] [address], [place] [address] Jun, [facility] [address] [id number] [address] [place] [address], [place] [address] May, [facility] [address] [id number] [address] [place] [phone] May, [facility] [address] [id number] [address] [place] [address], [place] [address] May, [facility] [address] [id number] [address] [place] [id number] March, [facility] [address] [id number] [address] [place] [address], [place] [address] Jan, [facility] [address] [id number] [address] [place] [id number] Jan, [facility] [address] [id number] [address] [place] [address], [place] [address] Jan, [facility] [address] [id number] [address] [place] [phone] Dec, [facility] [address] [id number] [address] [place] [phone] May, [facility] [address] [id number] [address] [place] [phone] March, [facility] [address] [id number] [address] [place] [phone] Jan, [facility] [address] [id number] [address] [place] [phone] Aug, [facility] [address] [id number] [address] [place] [phone] Aug, [facility] [address] [id number] [address] [place] [phone] Aug, [facility] [address] [id number] [address] [place] [id number] Jun, [facility] [address] [id number] [address] [place] [id number] 14 May, 2011 [facility] [address] [id number] [address] [place] [phone] Oct, IMMUNIZATIONS No Known Immunizations SOCIAL HISTORY [...]
--- OUTSIDE RECORDS SUMMARY | 2020-02-05 10:59 | XMS REPORT ---
Author Author Jelani Craig Organization [facility] Address [address] [place] [address] Care Team Providers Care Human Resources Assistant Name Role Phone KRISTEL Craig Unavailable PROBLEMS Type Condition ICD9-CM Code [id number] Code Onset Dates Condition S tatus SNOMED Code Problem Anger R45.4 Active 13371066 Problem Hx of cervical spine surgery Z98.89 A ctive 551657263 Problem Pain in right foot M79.671 Active 4 0343488 Problem Erectile dysfunction, unspecified erectile dysfunction typ e N52.9 Active 803096070 Problem Candidal dermatitis B37.2 Active 32621910 Problem Gastroesophageal reflux disease with esophagitis K 21.0 Active 068794982 Problem Anxiety disorder, unspecified F41.9 Active 761706361 Problem Mixed hyperlipidemia E78.2 Active 826999459 Problem 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 Active 324131004 Problem Unspecified mood [affective] disorder F39 Active 239773093 Problem Other stimulant dependence, 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 Active 408822480 Problem Marijuana abuse F12.10 Active 3734 4009 Problem Drug-induced erectile dysfunction N52.2 Active 881610204 Problem Cannabis dependence, uncomplicated F12.20 Active 96954183 Problem Wheezing R06.2 Active 56030247 Problem Psychophysiological insomnia F51.04 A ctive 402222854 Problem Pure hypercholesterolemia E78.00 Acti ve 540807607 Problem Anxiety F41.9 Active 67394963 Problem Idiopathic peripheral neuropathy G60.9 Active 64855539 Problem Polydipsia R63.1 Active 86420802 Problem Low back pain M54.5 Active 963287 005 Problem Essential hypertension I10 Active 81908423 Problem Pain in right knee M25.561 Active 3 68092090853069 Problem Mood disorder F39 Active 949079 05 Problem Other chronic pain G89.29 Active 8 6974437 Problem Primary osteoarthritis of left hip M16.12 Active 540611233 ALLERGIES No Information ENCOUNTERS Encounter Location Date Diagnosis [facility] [address] [facility] [id number] [address] [place] [phone] March, [facility] [address] [facility] [id number] [address] [place] [phone] March, Essential hypertension I10 [facility] [address] [facility] [id number] [address] [place] [address] March, [facility] [address] [facility] [id number] [address] [place] [phone] Feb, [facility] [address] [facility] [id number] [address] [place] [phone] Feb, [facility] [address] [facility] [id number] [address] [place] [phone] Feb, [facility] [address] [facility] [id number] [address] [place] [address] Feb, Prediabetes R73.03 [facility] [address] [facility] [id number] [address] [place] [phone] Jan, [facility] [address] [place] [id number] [address] [place] [phone] Jan, [facility] [address] [facility] [id number] [address] [place] [phone] Jan, Polydipsia R63.1 ; Periphera l edema R60.9 ; Pre-diabetes R73.03 and Tongue lesion K14.8 [facility] [address] [facility] [id number] [address] [place] [phone] Sep, Other chronic pain G89.29 [facility] [address] [place] [id number] [address] [place] [phone] 06 Sep, 2018 Acute low back pain, unspeci fied back pain laterality, with sciatica presence unspecified M54.5 [facility] [address] [facility] [id number] [address] [place] [address] Sep, Low vitamin D level R79.89 [facility] [address] [id number] [address] [place] [address] Aug, Acute low back pain, unspeci fied back pain laterality, with sciatica presence unspecified M54.5 and Primary osteoarthritis of left hip M16.12 [facility] [address] [id number] [address] [place] [phone] Aug, [facility] [address] [id number] [address] [place] [phone] Jun, [facility] [address] [id number] [address] [place] [address] Jun, Other chronic pain G89.29 an d Pain in right knee M25.561 [facility] [address] [id number] [address] [place] [phone] May, Primary osteoarthritis of le ft hip M16.12 ; Pain in left hip M25.552 ; Other acute postprocedural pain G89.18 and Anxiety F41.9 [facility] [address] [id number] [address] [place] [phone] May, [facility] [address] [id number] [address] [place] [phone] Apr, Pain in right knee M25.561 a nd Mood disorder F39 [facility] [address] [id number] [address] [place] [phone] Apr, [facility] [address] [id number] [address] [place] [address] [id number] March, [facility] [address] [id number] [address] [place] [address] [phone] March, Encounter for dental exam an d cleaning w/o abnormal findings Z01.20 [facility] [address] [id number] [address] [place] [address] [id number] March, Dental examination Z01.20 [facility] [address] [id number] [address] [place] [address] [id number] March, Dental examination Z01.20 [facility] [address] [id number] [address] [place] [phone] March, [facility] [address] [id number] [address] [place] [phone] March, [facility] [address] [id number] [address] [place] [address] Feb, [facility] [address] [id number] [address] [place] [address] Feb, Primary osteoarthritis of le ft hip M16.12 [facility] [address] [id number] [address] [place] [phone] Feb, Other chronic pain G89.29 an d Pain in left hip M25.552 [facility] [address] [id number] [address] [place] [address] Feb, Acute pain of left hip M25.5 52 [facility] [address] [id number] [address] [place] [address] Feb, Mood disorder F39 and Pain i n right knee M25.561 [facility] [address] [id number] [address] [place] [phone] Jan, Other chronic pain G89.29 [facility] [address] [id number] [address] [place] [phone] Jan, Mood disorder F39 [facility] [address] [id number] [address] [place] [phone] Jan, Pain in right knee M25.561 [facility] [address] [id number] [address] [place] [address] Jan, Pain in left hip M25.552 and Other chronic pain G89.29 [facility] [address] [id number] [address] [place] [phone] Jan, Acute pain of left hip M25.5 52 [facility] [address] [address] Jan, Acute pain of left hip M25.5 [address] [place] [address] [address] Jan, Mood disorder F39 and Acute pain of left hip M25.552 [place] [address] [address] Nov, Mood disorder F39 [place] [address] [address] Oct, Essential hypertension I10 ; Mixed hyperlipidemia E78.2 and Low back pain M54.5 [place] [address] [id number] May, [place] [address] [address] Apr, Essential hypertension I10 ; Anger R45.4 ; Mixed hyperlipidemia E78.2 ; Drug-induced erectile dysfunction N52.2 ; Gastroesophageal reflux disease with esophagitis K21.0 ; Pure hypercholesterolemia E78.00 ; Pain in right knee M25.561 ; Psychophysiological insomnia F51.04 and Wheezing R06.2 [place] [address] [place] [id number] [address] [place] [address] March, Hx of cervical spine surgery Z98.89 [place] [address] [address] March, [place] [address] [address] Feb, Anxiety associated with depr ession F41.8 [place] [address] [address] Jan, Anxiety associated with depr ession F41.8 [place] [address] [place] [id number] [address] [place] [phone] Dec, [place] [address] [address] Dec, [place] [address] [address] Dec, Essential hypertension I10 ; Erectile dysfunction, unspecified erectile dysfunction type N52.9 and Hyperlipemia E78.5 [place] [address] [address] Nov, Essential hypertension I10 ; Hx of cervical spine surgery Z98.89 ; Erectile dysfunction, unspecified erectile dysfunction type N52.9 ; Idiopathic peripheral neuropathy G60.9 ; Anger R45.4 ; Anxiety associated with depression F41.8 ; Hyperlipemia E78.5 ; Wheezing R06.2 and Has daytime drowsiness R40.0 [place] [address] [address] Nov, [place] [address] [address] Nov, [place] [address] [address] Sep, [place] [address] [address] Sep, Acute midline low back pain without sciatica M54.5 [place] [address] [address] Sep, Acute bilateral low back ekta n without sciatica M54.5 [place] [address] [address] Aug, [place] [address] [address] Jun, Wheezing R06.2 ; Candidal de rmatitis B37.2 ; Essential hypertension I10 ; Erectile dysfunction, unspecified erectile dysfunction type N52.9 ; Idiopathic peripheral neuropathy G60.9 ; Mixed hyperlipidemia E78.2 and Other stimulant dependence, 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 [place] [address] [address] March, Essential hypertension I10 ; Hx of cervical spine surgery Z98.89 ; Idiopathic peripheral neuropathy G60.9 ; Mixed hyperlipidemia E78.2 ; Anger R45.4 ; Drug-induced erectile dysfunction N52.2 and Gastroesophageal reflux disease with esophagitis K21.0 [place] [address] [address] Feb, [place] [address] [address] Dec, Low back pain M54.[address] [address] Dec, [place] [address] [address] Dec, Unspecified mood [affective] disorder F39 ; Anxiety disorder, unspecified F41.9 ; Other stimulant dependence, 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 and Cannabis dependence, uncomplicated F12.20 [place] [address] [address] Dec, Essential hypertension I10 ; Hyperlipemia E78.5 ; Erectile dysfunction, unspecified erectile dysfunction type N52.9 ; Anger R45.4 ; Mixed hyperlipidemia E78.2 ; Anxiety associated with depression F41.8 ; Elevated serum creatinine R79.89 ; 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 and Marijuana abuse F12.10 [place] [address] [place] [id number] [address] [place] [address] Oct, Essential hypertension I10 ; Idiopathic peripheral neuropathy G60.9 ; Low back pain M54.5 ; Hx of cervical spine surgery Z98.89 ; Erectile dysfunction, unspecified erectile dysfunction type N52.9 ; Anger R45.4 ; Mixed hyperlipidemia E78.2 and Anxiety associated with depression F41.8 [place] [address] [address] Oct, Unspecified mood [affective] disorder F39 and Anxiety disorder, unspecified F41.9 [facility] [address] [facility] [id number] [address] [place] [phone] Oct, Hyperlipemia E78.5 [facility] [address] [facility] [id number] [address] [place] [phone] Oct, Essential hypertension I10 [facility] [address] [place] [id number] [address] [place] [phone] Oct, [facility] [address] [place] [id number] [address] [place] [phone] Oct, Essential hypertension I10 ; Idiopathic peripheral neuropathy G60.9 ; Low back pain M54.5 ; Hx of cervical spine surgery Z98.89 ; Pain in right hand M79.641 ; Pain of left hand M79.642 ; Pain in left foot M79.672 ; Pain in right foot M79.671 ; Erectile dysfunction, unspecified erectile dysfunction type N52.9 and Anger R45.4 [facility] [address] [place] [id number] [address] [place] [phone] Sep, [facility] [address] [facility] [id number] [address] [place] [phone] Jul, [facility] [address] [place] [id number] [address] [place] [phone] Jun, [facility] [address] [facility] [id number] [address] [place] [phone] May, [facility] [address] [place] [id number] [address] [place] [phone] Apr, [facility] [address] [facility] [id number] [address] [place] [phone] March, [facility] [address] [place] [id number] [address] [place] [phone] 14 Feb, 2015 [facility] [address] [place] [id number] [address] [place] [phone] Feb, [facility] [address] [id number] [address] [place] [address], [place] [address] Jan, [facility] [address] [id number] [address] [place] [address], [place] [address] Jan, [facility] [address] [id number] [address] [place] [address], [place] [address] Nov, [facility] [address] [id number] [address] [place] [address], [place] [address] Nov, [facility] [address] [id number] [address] [place] [address], [place] [address] Nov, [facility] [address] [id number] [address] [place] [address], [place] [address] Nov, [facility] [address] [id number] [address] [place] [address], [place] [address] Nov, [facility] [address] [id number] [address] [place] [address], [place] [address] Nov, [facility] [address] [id number] [address] [place] [address], [place] [address] Oct, [facility] [address] [id number] [address] [place] [address], [place] [address] Oct, [facility] [address] [id number] [address] [place] [address], [place] [address] Oct, [facility] [address] [id number] [address] [place] [address], [place] [address] Oct, [facility] [address] [id number] [address] [place] [address], [place] [address] Sep, [facility] [address] [id number] [address] [place] [address], [place] [address] Sep, [facility] [address] [id number] [address] [place] [address], [place] [address] Sep, [facility] [address] [id number] [address] [place] [address], [place] [address] Sep, [facility] [address] [id number] [address] [place] [address], [place] [address] 10 Sep, 2014 [facility] [address] [id number] [address] [place] [address], [place] [address] 16 Aug, 2014 [facility] [address] [id number] [address] [place] [address], [place] [address] 16 Aug, 2014 [facility] [address] [id number] [address] [place] [address], [place] [address] 15 Aug, 2014 [facility] [address] [id number] [address] [place] [address], [place] [address] 15 Aug, 2014 [facility] [address] [id number] [address] [place] [address], [place] [address] 15 Aug, 2014 [facility] [address] [id number] [address] [place] [address], [place] [address] 15 Aug, 2014 [facility] [address] [id number] [address] [place] [id number] 13 Aug, 2014 [facility] [address] [id number] [address] [place] [address], [place] [address] 07 Aug, 2014 [facility] [address] [id number] [address] [place] [id number] 07 Aug, 2014 [facility] [address] [id number] [address] [place] [address] 06 Aug, 2014 [facility] [address] [id number] [address] [place] [address] 06 Aug, 2014 [facility] [address] [id number] [address] [place] [address], [place] [address] 19 Jul, 2014 [facility] [address] [id number] [address] [place] [phone] 19 Jul, 2014 [facility] [address] [id number] [address] [place] [phone] 18 Jul, 2014 [facility] [address] [id number] [address] [place] [address] Jul, [facility] [address] [id number] [address] [place] [address], [place] [address] Jun, [facility] [address] [id number] [address] [place] [address], [place] [address] Jun, [facility] [address] [id number] [address] [place] [address], [place] [address] Jun, [facility] [address] [id number] [address] [place] [address], [place] [address] Jun, [facility] [address] [id number] [address] [place] [address], [place] [address] Jun, [facility] [address] [id number] [address] [place] [address], [place] [address] Jun, [facility] [address] [id number] [address] [place] [address], [place] [address] May, [facility] [address] [id number] [address] [place] [address], [place] [address] May, [facility] [address] [id number] [address] [place] [address], [place] [address] May, [facility] [address] [id number] [address] [place] [address], [place] [address] May, [facility] [address] [id number] [address] [place] [address] [id number] May, [facility] [address] [id number] [address] [place] [address], [place] [address] May, [facility] [address] [id number] [address] [place] [address], [place] [address] May, [facility] [address] [id number] [address] [place] [address], [place] [address] May, [facility] [address] [id number] [address] [place] [address], [place] [address] May, [facility] [address] [id number] [facility] [place] [address] May, [facility] [address] [id number] [facility] [place] [address] May, [facility] [address] [id number] [address] [place] [address], [place] [address] May, [facility] [address] [id number] [address] [place] [address], [place] [address] Apr, [facility] [address] [id number] [address] [place] [address], [place] [address] Apr, [facility] [address] [id number] [address] [place] [address], [place] [address] March, [facility] [address] [id number] [address] [place] [address], [place] [address] March, [facility] [address] [id number] [address] [place] [address], [place] [address] March, [facility] [address] [id number] [address] [place] [address], [place] [address] March, [facility] [address] [id number] [address] [place] [address], [place] [address] Feb, [facility] [address] [id number] [address] [place] [address], [place] [address] Feb, [facility] [address] [id number] [address] [place] [address], [place] [address] Jan, [facility] [address] [id number] [address] [place] [address], [place] [address] Jan, [facility] [address] [id number] [address] [place] [address], [place] [address] Jan, [facility] [address] [id number] [address] [place] [address], [place] [address] Jan, [facility] [address] [id number] [address] [place] [address], [place] [address] Dec, [facility] [address] [id number] [address] [place] [address], [place] [address] Dec, [facility] [address] [id number] [address] [place] [address], [place] [address] Nov, [facility] [address] [id number] [address] [place] [address], [place] [address] Nov, [facility] [address] [id number] [address] [place] [address], [place] [address] Nov, [facility] [address] [id number] [address] [place] [address], [place] [address] Nov, [facility] [address] [id number] [address] [place] [address], [place] [address] Oct, [facility] [address] [id number] [address] [place] [address], [place] [address] Oct, [facility] [address] [id number] [address] [place] [address], [place] [address] Sep, [facility] [address] [id number] [address] [place] [address], [place] [address] Sep, [facility] [address] [id number] [address] [place] [address], [place] [address] Jul, [facility] [address] [id number] [address] [place] [address], [place] [address] Jul, [facility] [address] [id number] [address] [place] [address], [place] [address] Jul, [facility] [address] [id number] [address] [place] [address], [place] [address] Jun, [facility] [address] [id number] [address] [place] [address], [place] [address] Jun, [facility] [address] [id number] [address] [place] [address], [place] [address] May, [facility] [address] [id number] [address] [place] [address], [place] [address] May, [facility] [address] [id number] [address] [place] [address], [place] [address] May, [facility] [address] [id number] [address] [place] [address], [place] [address] March, [facility] [address] [id number] [address] [place] [address], [place] [address] Jan, [facility] [address] [id number] [address] [place] [address], [place] [address] Jan, [facility] [address] [id number] [address] [place] [address], [place] [address] Jan, [facility] [address] [id number] [address] [place] [address], [place] [address] Dec, [facility] [address] [id number] [address] [place] [address], [place] [address] May, [facility] [address] [id number] [address] [place] [address], [place] [address] March, [facility] [address] [id number] [address] [place] [address], [place] [address] Jan, [facility] [address] [address] [id number] [address] [place] [address], [place] [address] Aug, [facility] [address] [id number] [address] [place] [address], [place] [address] Aug, [facility] [address] [id number] [address] [place] [id number] Aug, [facility] [address] [id number] [address] [place] [address], [place] [address] Jun, [facility] [address] [id number] [address] [place] [address], [place] [address] 14 May, 2011 [facility] [address] [id number] [address] [place] [id number] Oct, IMMUNIZATIONS No Known Immunizations SOCIAL HISTORY Never Assessed REASON FOR VISIT PLAN OF CARE VITAL SIGNS Height 66 in 2014-08-26 Weight 186 lbs 2014-08-26 Temperature 97.3 degrees Fahrenheit 2014-08-26 Heart Rate 84 bpm 2014-08-26 Respiratory Rate 20 2014-08-26 Blood pressure systolic 126 mmHg 2014-08-26 Blood pressure diastolic 78 mmHg 2014-08-26 MEDICATIONS Unknown Medications RESULTS No Results PROCEDURES [...]
--- OUTSIDE RECORDS SUMMARY | 2020-02-05 11:00 | XMS REPORT ---
Author Author Jelani BHANDARI Organization [facility] Address [address] [place] [address] Care Team Providers Care Legal File Clerk Name Role Phone BÁRBARA BHANDARI Unavailable PROBLEMS Type Condition ICD9-CM Code [id number] Code Onset Dates Condition S tatus SNOMED Code Problem Anger R45.4 Active 37609001 Problem Hx of cervical spine surgery Z98.89 A ctive 259117628 Problem Pain in right foot M79.671 Active 4 2150214 Problem Erectile dysfunction, unspecified erectile dysfunction typ e N52.9 Active 350567941 Problem Candidal dermatitis B37.2 Active 21367312 Problem Gastroesophageal reflux disease with esophagitis K 21.0 Active 877676087 Problem Anxiety disorder, unspecified F41.9 Active 956798230 Problem Mixed hyperlipidemia E78.2 Active 788925839 Problem 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 Active 597407293 Problem Unspecified mood [affective] disorder F39 Active 255257333 Problem Other stimulant dependence, 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 Active 002449096 Problem Marijuana abuse F12.10 Active 3734 4009 Problem Drug-induced erectile dysfunction N52.2 Active 191771182 Problem Cannabis dependence, uncomplicated F12.20 Active 43486808 Problem Wheezing R06.2 Active 38770734 Problem Psychophysiological insomnia F51.04 A ctive 725757685 Problem Pure hypercholesterolemia E78.00 Acti ve 861719327 Problem Anxiety F41.9 Active 94328894 Problem Idiopathic peripheral neuropathy G60.9 Active 79452422 Problem Polydipsia R63.1 Active 16326650 Problem Low back pain M54.5 Active 128407 005 Problem Essential hypertension I10 Active 79709588 Problem Pain in right knee M25.561 Active 3 [id number] Problem Mood disorder F39 Active 546028 05 Problem Other chronic pain G89.29 Active 8 5233034 Problem Primary osteoarthritis of left hip M16.12 Active [id number] ALLERGIES No Information ENCOUNTERS Encounter Location Date Diagnosis [facility] [address] [facility] [place] [id number] [address] [place] [address] March, [facility] [address] [facility] [place] [facility] [id number] [address] [place] [address] March, Essential hypertension I10 [facility] [address] [facility] [place] [facility] [id number] [address] [place] [address] March, [facility] [address] [facility] [place] [facility] [id number] [address] [place] [address] Feb, [facility] [address] [facility] [place] [facility] [id number] [address] [place] [address] Feb, [facility] [address] [facility] [place] [facility] [id number] [address] [place] [address] Feb, [facility] [address] [place] [id number] [place] [address] Feb, Prediabetes R73.03 [facility] [address] [facility] [place] [id number] [address] [place] [address] Jan, [facility] [address] [address] Jan, [facility] [address] [place] [id number] [address] [place] [address] Jan, Polydipsia R63.1 ; Periphera l edema R60.9 ; Pre-diabetes R73.03 and Tongue lesion K14.8 [facility] [address] [facility] [place] [facility] [id number] [address] [place] [address] Sep, Other chronic pain G89.29 [facility] [address] [place] [id number] [address] [place] [address] Sep, Acute low back pain, unspeci fied back pain laterality, with sciatica presence unspecified M54.5 [facility] [address] [place] [id number] [address] [place] [address] Sep, Low vitamin D level R79.89 [facility] [address] [place] [id number] [address] [place] [address] Aug, Acute low back pain, unspeci fied back pain laterality, with sciatica presence unspecified M54.5 and Primary osteoarthritis of left hip M16.12 [facility] [address] [id number] [address] [place] [address] Aug, [place] [address] [id number] [address] [place] [address] Jun, [place] [address] [id number] [address] [place] [address] Jun, Other chronic pain G89.29 an d Pain in right knee M25.561 [place] [address] [id number] [address] [place] [address] May, Primary osteoarthritis of le ft hip M16.12 ; Pain in left hip M25.552 ; Other acute postprocedural pain G89.18 and Anxiety F41.9 [place] [address] [id number] [address] [place] [address] May, [place] [address] [id number] [address] [place] [address] Apr, Pain in right knee M25.561 a nd Mood disorder F39 [place] [address] [id number] [address] [place] [address] Apr, [facility] [address] [id number] [address] [place] [address] [id number] March, [facility] [address] [id number] [address] [place] [address] [id number] March, Encounter for dental exam an d cleaning w/o abnormal findings Z01.20 [facility] [address] [id number] [address] [place] [address] [id number] March, Dental examination Z01.20 [facility] [address] [id number] [address] [place] [address] [id number] 11 May, 2018 Dental examination Z01.20 [facility] [address] [id number] [address] [place] [address] March, [facility] [address] [id number] [address] [place] [address] March, [facility] [address] [id number] [address] [place] [address] Feb, [facility] [address] [id number] [address] [place] [address] Feb, Primary osteoarthritis of le ft hip M16.12 [facility] [address] [id number] [address] [place] [address] Feb, Other chronic pain G89.29 an d Pain in left hip M25.552 [facility] [address] [id number] [address] [place] [address] Feb, Acute pain of left hip M25.5 52 [facility] [address] [id number] [address] [place] [address] Feb, Mood disorder F39 and Pain i n right knee M25.561 [facility] [address] [id number] [address] [place] [address] Jan, Other chronic pain G89.29 [facility] [address] [id number] [address] [place] [address] Jan, Mood disorder F39 [facility] [address] [id number] [address] [place] [address] Jan, Pain in right knee M25.561 [facility] [address] [id number] [address] [place] [address] Jan, Pain in left hip M25.552 and Other chronic pain G89.29 [facility] [address] [id number] [address] [place] [address] Jan, Acute pain of left hip M25.5 52 [facility] [address] [address] Jan, Acute pain of left hip M25.5 52 [place] [address] [address] Jan, Mood disorder F39 and Acute pain of left hip M25.552 [place] [address] [address] Nov, Mood disorder F39 [place] [address] [address] Oct, Essential hypertension I10 ; Mixed hyperlipidemia E78.2 and Low back pain M54.5 [facility] [address] [id number] May, [place] [address] [address] Apr, Essential hypertension I10 ; Anger R45.4 ; Mixed hyperlipidemia E78.2 ; Drug-induced erectile dysfunction N52.2 ; Gastroesophageal reflux disease with esophagitis K21.0 ; Pure hypercholesterolemia E78.00 ; Pain in right knee M25.561 ; Psychophysiological insomnia F51.04 and Wheezing R06.2 [place] [address] [address] March, Hx of cervical spine surgery Z98.89 [place] [address] [address] March, [place] [address] [address] Feb, Anxiety associated with depr ession F41.8 [place] [address] [address] Jan, Anxiety associated with depr ession F41.8 [place] [address] [address] Dec, [place] [address] [address] Dec, [facility] [address] [place] [id number] [address] [place] [address] Dec, Essential hypertension I10 ; Erectile dysfunction, unspecified erectile dysfunction type N52.9 and Hyperlipemia E78.5 [facility] [address] [place] [id number] [address] [place] [address] Nov, Essential hypertension I10 ; Hx of cervical spine surgery Z98.89 ; Erectile dysfunction, unspecified erectile dysfunction type N52.9 ; Idiopathic peripheral neuropathy G60.9 ; Anger R45.4 ; Anxiety associated with depression F41.8 ; Hyperlipemia E78.5 ; Wheezing R06.2 and Has daytime drowsiness R40.0 [facility] [address] [address] Nov, [place] [address] [address] Nov, [facility] [address] [place] [id number] [address] [place] [address] Sep, [facility] [address] [address] Sep, Acute midline low back pain without sciatica M54.5 [facility] [address] [place] [id number] [place] [address] Sep, Acute bilateral low back ekta n without sciatica M54.5 [facility] [address] [place] [id number] [address] [place] [address] Aug, [facility] [address] [place] [id number] [address] [place] [address] Jun, Wheezing R06.2 ; Candidal de rmatitis B37.2 ; Essential hypertension I10 ; Erectile dysfunction, unspecified erectile dysfunction type N52.9 ; Idiopathic peripheral neuropathy G60.9 ; Mixed hyperlipidemia E78.2 and Other stimulant dependence, 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 [facility] [address] [address] March, Essential hypertension I10 ; Hx of cervical spine surgery Z98.89 ; Idiopathic peripheral neuropathy G60.9 ; Mixed hyperlipidemia E78.2 ; Anger R45.4 ; Drug-induced erectile dysfunction N52.2 and Gastroesophageal reflux disease with esophagitis K21.0 [place] [address] [address] Feb, [place] [address] [address] Dec, Low back pain M54.5 [place] [address] [address] Dec, [place] [address] [address] Dec, Unspecified mood [affective] disorder F39 ; Anxiety disorder, unspecified F41.9 ; Other stimulant dependence, 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 and Cannabis dependence, uncomplicated F12.20 [place] [address] [address] Dec, Essential hypertension I10 ; Hyperlipemia E78.5 ; Erectile dysfunction, unspecified erectile dysfunction type N52.9 ; Anger R45.4 ; Mixed hyperlipidemia E78.2 ; Anxiety associated with depression F41.8 ; Elevated serum creatinine R79.89 ; 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 and Marijuana abuse F12.10 [place] [address] [address] Oct, Essential hypertension I10 ; Idiopathic peripheral neuropathy G60.9 ; Low back pain M54.5 ; Hx of cervical spine surgery Z98.89 ; Erectile dysfunction, unspecified erectile dysfunction type N52.9 ; Anger R45.4 ; Mixed hyperlipidemia E78.2 and Anxiety associated with depression F41.8 [place] [address] [address] Oct, Unspecified mood [affective] disorder F39 and Anxiety disorder, unspecified F41.9 [facility] [address] [id number] [address] [place] [address] Oct, Hyperlipemia E78.5 [facility] [address] [facility] [place] [facility] [id number] [address] [place] [address] Oct, Essential hypertension I10 [facility] [address] [place] [id number] [address] [place] [address] Oct, [facility] [address] [facility] [place] [facility] [id number] [address] [place] [address] Oct, Essential hypertension I10 ; Idiopathic peripheral neuropathy G60.9 ; Low back pain M54.5 ; Hx of cervical spine surgery Z98.89 ; Pain in right hand M79.641 ; Pain of left hand M79.642 ; Pain in left foot M79.672 ; Pain in right foot M79.671 ; Erectile dysfunction, unspecified erectile dysfunction type N52.9 and Anger R45.4 [facility] [address] [facility] [place] [facility] [id number] [address] [place] [address] Sep, [facility] [address] [facility] [place] [id number] [address] [place] [address] Jul, [facility] [address] [facility] [place] [id number] [address] [place] [address] Jun, [facility] [address] [facility] [place] [id number] [address] [place] [address] May, [facility] [address] [facility] [place] [id number] [address] [place] [address] Apr, [facility] [address] [facility] [place] [id number] [address] [place] [address] March, [facility] [address] [facility] [place] [id number] [address] [place] [address] 14 Feb, 2015 [facility] [address] [facility] [place] [id number] [address] [place] [address] Feb, [facility] [address] [facility] [place] [id number] [address] [place] [address] Jan, [facility] [address] [id number] [address] [place] [address], [place] [address] Jan, [facility] [address] [id number] [address] [place] [address], [place] [address] Nov, [facility] [address] [id number] [address] [place] [address], [place] [address] Nov, [facility] [address] [id number] [address] [place] [address], [place] [address] Nov, [facility] [address] [id number] [address] [place] [address], [place] [address] Nov, [facility] [address] [id number] [address] [place] [address], [place] [address] Nov, [facility] [address] [id number] [address] [place] [address], [place] [address] Nov, [facility] [address] [id number] [address] [place] [address], [place] [address] Oct, [facility] [address] [id number] [address] [place] [address], [place] [address] Oct, [facility] [address] [id number] [address] [place] [address], [place] [address] Oct, [facility] [address] [id number] [address] [place] [address], [place] [address] Oct, [facility] [address] [id number] [address] [place] [address], [place] [address] Sep, [facility] [address] [id number] [address] [place] [address], [place] [address] Sep, [facility] [place] [facility] [address] [id number] [address] [place] [address], [place] [address] Sep, [facility] [address] [id number] [address] [place] [address], [place] [address] Sep, [facility] [place] [facility] [address] [id number] [address] [place] [address], [place] [address] 10 Sep, 2014 [facility] [place] [facility] [address] [id number] [address] [place] [address], [place] [address] 16 Aug, 2014 [facility] [place] [facility] [address] [id number] [address] [place] [address], [place] [address] 16 Aug, 2014 [facility] [place] [facility] [address] [id number] [address] [place] [address], [place] [address] 15 Aug, 2014 [facility] [place] [facility] [address] [id number] [address] [place] [address], [place] [address] 15 Aug, 2014 [facility] [place] [facility] [address] [id number] [address] [place] [address], [place] [address] 15 Aug, 2014 [facility] [place] [facility] [address] [id number] [address] [place] [address], [place] [address] 15 Aug, 2014 [facility] [place] [facility] [address] [id number] [address] [place] [address], [place] [address] 13 Aug, 2014 [facility] [place] [facility] [address] [id number] [address] [place] [address], [place] [address] 07 Aug, 2014 [facility] [place] [facility] [address] [id number] [address] [place] [address], [place] [address] 07 Aug, 2014 [facility] [place] [facility] [address] [id number] [address] [place] [address], [place] [address] 06 Aug, 2014 [facility] [place] [facility] [address] [id number] [address] [place] [address], [place] [address] 06 Aug, 2014 [facility] [place] [facility] [address] [id number] [address] [place] [address], [place] [address] 19 Jul, 2013 [facility] [place] [facility] [address] [id number] [address] [place] [address], [place] [address] 19 Jul, 2013 [facility] [place] [facility] [address] [id number] [address] [place] [address], [place] [address] 18 Jul, 2013 [facility] [place] [facility] [address] [id number] [address] [place] [address], [place] [address] Jul, [facility] [place] [facility] [address] [id number] [address] [place] [address], [place] [address] Jun, [facility] [place] [facility] [address] [id number] [address] [place] [address], [place] [address] Jun, [facility] [place] [facility] [address] [id number] [address] [place] [address], [place] [address] Jun, [facility] [place] [facility] [address] [id number] [address] [place] [address], [place] [address] Jun, [facility] [address] [id number] [address] [place] [address], [place] [address] Jun, [facility] [place] [facility] [address] [id number] [address] [place] [address], [place] [address] Jun, [facility] [place] [facility] [address] [id number] [address] [place] [address], [place] [address] May, [facility] [place] [facility] [address] [id number] [address] [place] [address], [place] [address] May, [facility] [address] [id number] [address] [place] [address], [place] [address] May, [facility] [address] [id number] [address] [place] [address], [place] [address] May, [facility] [place] [facility] [address] [id number] [address] [place] [address], [place] [id number] May, [facility] [place] [facility] [address] [id number] [address] [place] [address], [place] [address] May, [facility] [place] [facility] [address] [id number] [address] [place] [address], [place] [address] May, [facility] [place] [facility] [address] [id number] [address] [place] [address], [place] [address] May, [facility] [place] [facility] [address] [id number] [address] [place] [address], [place] [address] May, [facility] [place] [facility] [address] [id number] [address] [place] [address], [place] [address] May, [facility] [address] [id number] [address] [place] [address], [place] [address] May, [facility] [address] [id number] [address] [place] [address], [place] [address] May, [facility] [address] [id number] [address] [place] [address], [place] [address] Apr, [facility] [address] [id number] [address] [place] [address], [place] [address] Apr, [facility] [address] [id number] [address] [place] [address], [place] [address] March, [facility] [address] [id number] [address] [place] [address], [place] [address] March, [facility] [address] [id number] [address] [place] [address], [place] [address] March, [facility] [address] [id number] [address] [place] [address], [place] [address] March, [facility] [address] [id number] [address] [place] [address], [place] [address] Feb, [facility] [address] [id number] [address] [place] [address], [place] [address] Feb, [facility] [address] [id number] [address] [place] [address], [place] [address] Jan, [facility] [place] [facility] [address] [id number] [address] [place] [address], [place] [address] Jan, [facility] [place] [facility] [address] [id number] [address] [place] [address], [place] [address] Jan, [facility] [place] [facility] [address] [id number] [address] [place] [address], [place] [address] Jan, [facility] [address] [id number] [address] [place] [address], [place] [address] Dec, [facility] [address] [id number] [address] [place] [address], [place] [address] Dec, [facility] [address] [id number] [address] [place] [address], [place] [address] Nov, [facility] [address] [id number] [address] [place] [address], [place] [id number] Nov, [facility] [address] [id number] [address] [place] [address], [place] [address] Nov, [facility] [address] [id number] [address] [place] [address], [place] [address] Nov, [facility] [address] [id number] [address] [place] [address], [place] [id number] Oct, [facility] [address] [id number] [address] [place] [address], [place] [address] Oct, [facility] [address] [id number] [address] [place] [address], [place] [id number] Sep, [facility] [address] [id number] [address] [place] [address], [place] [address] Sep, [facility] [address] [id number] [address] [place] [address], [place] [address] Jul, [facility] [address] [id number] [address] [place] [address], [place] [id number] Jul, [facility] [address] [id number] [address] [place] [address], [place] [address] Jul, [facility] [address] [id number] [address] [place] [address], [place] [address] Jun, [facility] [address] [id number] [address] [place] [address], [place] [address] Jun, [facility] [address] [id number] [address] [place] [address], [place] [address] May, [facility] [address] [id number] [address] [place] [id number] May, [facility] [address] [id number] [address] [place] [address] [place] [address] May, [facility] [address] [id number] [address] [place] [id number] March, [facility] [address] [id number] [address] [place] [address] [place] [address] Jan, [facility] [address] [id number] [address] [place] [id number] Jan, [facility] [address] [id number] [address] [place] [address] [place] [id number] Jan, [facility] [address] [id number] [address] [place] [id number] Dec, [facility] [address] [id number] [address] [place] [address] May, [facility] [address] [id number] [address] [place] [id number] March, [facility] [address] [id number] [address] [place] [id number] Jan, [facility] [address] [id number] [address] [place] [id number] Aug, [facility] [address] [address] [id number] [address] [place] [id number] Aug, [facility] [address] [id number] [address] [place] [id number] Aug, [facility] [address] [id number] [address] [place] [id number] Jun, [facility] [address] [id number] [address] [place] [id number] 14 May, 2011 [facility] [address] [id number] [address] [place] [id number] Oct, IMMUNIZATIONS No Known Immunizations SOCIAL HISTORY Never Assessed REASON FOR VISIT PLAN OF CARE VITAL SIGNS Height 66 in 2014-09-30 Weight 188 lbs 2014-09-30 Temperature 98 degrees Fahrenheit 2014-09-30 Heart Rate 80 bpm 2014-09-30 Respiratory Rate 18 2014-09-30 Blood pressure systolic 148 mmHg 2014-09-30 Blood pressure diastolic 72 mmHg 2014-09-30 MEDICATIONS Unknown Medications RESULTS No Results PROCEDURES [...] History surgery Hospitalization History left axilla abcess, hypokalemia-[facility] 05/29/17
--- OUTSIDE RECORDS SUMMARY | 2020-02-05 11:00 | XMS REPORT ---
Author Author Jelani BHANDARI Organization [facility] Address [address] [place] [address] Care Team Providers Care Medical Imaging Technician Name Role Phone BÁRBARA BHANDARI Unavailable PROBLEMS Type Condition ICD9-CM Code IOW29-SI Code Onset Dates Condition S tatus SNOMED Code Problem Anger R45.4 Active 01186039 Problem Hx of cervical spine surgery Z98.89 A ctive 765821454 Problem Pain in right foot M79.671 Active 4 4748961 Problem Erectile dysfunction, unspecified erectile dysfunction typ e N52.9 Active 962955863 Problem Candidal dermatitis B37.2 Active 63156639 Problem Gastroesophageal reflux disease with esophagitis K 21.0 Active 481713392 Problem Anxiety disorder, unspecified F41.9 Active 638033852 Problem Mixed hyperlipidemia E78.2 Active 272431882 Problem 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 Active 840902146 Problem Unspecified mood [affective] disorder F39 Active 738113286 Problem Other stimulant dependence, 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 Active 382605713 Problem Marijuana abuse F12.10 Active 3734 4009 Problem Drug-induced erectile dysfunction N52.2 Active 142596374 Problem Cannabis dependence, uncomplicated F12.20 Active 75361957 Problem Wheezing R06.2 Active 98638614 Problem Psychophysiological insomnia F51.04 A ctive 648748458 Problem Pure hypercholesterolemia E78.00 Acti ve 841149235 Problem Anxiety F41.9 Active 53302280 Problem Idiopathic peripheral neuropathy G60.9 Active 77243487 Problem Polydipsia R63.1 Active 98578676 Problem Low back pain M54.5 Active 114856 005 Problem Essential hypertension I10 Active 38925377 Problem Pain in right knee M25.561 Active 3 [id number] Problem Mood disorder F39 Active 186530 05 Problem Other chronic pain G89.29 Active 8 9139293 Problem Primary osteoarthritis of left hip M16.12 Active 655364535 ALLERGIES No Information ENCOUNTERS Encounter Location Date Diagnosis [facility] [address] [facility] [id number] [address] [place] [address] March, [facility] [address] [facility] [id number] [address] [place] [address] March, Essential hypertension I10 [facility] [address] [facility] [id number] [address] [place] [address] March, [facility] [address] [facility] [id number] [address] [place] [address] Feb, [facility] [address] [facility] [id number] [address] [place] [address] Feb, [facility] [address] [facility] [id number] [address] [place] [address] Feb, [facility] [address] [place] [id number] [place] [address] Feb, Prediabetes R73.03 [facility] [address] [facility] [id number] [address] [place] [address] Jan, [facility] [address] [address] Jan, [facility] [address] [place] [id number] [address] [place] [address] Jan, Polydipsia R63.1 ; Periphera l edema R60.9 ; Pre-diabetes R73.03 and Tongue lesion K14.8 [facility] [address] [facility] [id number] [address] [place] [address] Sep, Other chronic pain G89.29 [facility] [address] [place] [id number] [address] [place] [address] Sep, Acute low back pain, unspeci fied back pain laterality, with sciatica presence unspecified M54.5 [facility] [address] [place] [id number] [address] [place] [address] Sep, Low vitamin D level R79.89 [facility] [address] [place] [id number] [address] [place] [address] Aug, Acute low back pain, unspeci fied back pain laterality, with sciatica presence unspecified M54.5 and Primary osteoarthritis of left hip M16.12 [facility] [address] [id number] [address] [place] [address] Aug, [place] [address] [id number] [address] [place] [address] Jun, [place] [address] [id number] [address] [place] [address] Jun, Other chronic pain G89.29 an d Pain in right knee M25.561 [place] [address] [id number] [address] [place] [address] May, Primary osteoarthritis of le ft hip M16.12 ; Pain in left hip M25.552 ; Other acute postprocedural pain G89.18 and Anxiety F41.9 [place] [address] [id number] [address] [place] [address] May, [place] [address] [id number] [address] [place] [address] Apr, Pain in right knee M25.561 a nd Mood disorder F39 [place] [address] [id number] [address] [place] [address] Apr, [facility] [address] [id number] [address] [place] [id number] March, [facility] [address] [id number] [address] [place] [id number] March, Encounter for dental exam an d cleaning w/o abnormal findings Z01.20 [facility] [address] [id number] [address] [place] [address] [id number] March, Dental examination Z01.20 [facility] [address] [id number] [address] [place] [id number] 11 May, 2018 Dental examination Z01.20 [facility] [address] [id number] [address] [place] [address] March, [facility] [address] [id number] [address] [place] [address] March, [facility] [address] [id number] [address] [place] [address] Feb, [facility] [address] [id number] [address] [place] [address] Feb, Primary osteoarthritis of le ft hip M16.12 [facility] [address] [id number] [address] [place] [address] Feb, Other chronic pain G89.29 an d Pain in left hip M25.552 [facility] [address] [id number] [address] [place] [address] Feb, Acute pain of left hip M25.5 52 [facility] [address] [id number] [address] [place] [address] Feb, Mood disorder F39 and Pain i n right knee M25.561 [facility] [address] [id number] [address] [place] [address] Jan, Other chronic pain G89.29 [facility] [address] [id number] [address] [place] [address] Jan, Mood disorder F39 [facility] [address] [id number] [address] [place] [address] Jan, Pain in right knee M25.561 [facility] [address] [id number] [address] [place] [address] Jan, Pain in left hip M25.552 and Other chronic pain G89.29 [facility] [address] [id number] [address] [place] [address] Jan, Acute pain of left hip M25.5 52 [facility] [address] [address] Jan, Acute pain of left hip M25.5 [address] [place] [address] [address] Jan, Mood disorder F39 and Acute pain of left hip M25.552 [place] [address] [address] Nov, Mood disorder F39 [place] [address] [address] Oct, Essential hypertension I10 ; Mixed hyperlipidemia E78.2 and Low back pain M54.5 [facility] [address] [id number] May, [place] [address] [address] Apr, Essential hypertension I10 ; Anger R45.4 ; Mixed hyperlipidemia E78.2 ; Drug-induced erectile dysfunction N52.2 ; Gastroesophageal reflux disease with esophagitis K21.0 ; Pure hypercholesterolemia E78.00 ; Pain in right knee M25.561 ; Psychophysiological insomnia F51.04 and Wheezing R06.2 [place] [address] [address] March, Hx of cervical spine surgery Z98.89 [place] [address] [address] March, [place] [address] [address] Feb, Anxiety associated with depr ession F41.8 [place] [address] [address] Jan, Anxiety associated with depr ession F41.8 [place] [address] [address] Dec, [place] [address] [address] Dec, [facility] [address] [place] [id number] [address] [place] [address] Dec, Essential hypertension I10 ; Erectile dysfunction, unspecified erectile dysfunction type N52.9 and Hyperlipemia E78.5 [facility] [address] [place] [id number] [address] [place] [address] Nov, Essential hypertension I10 ; Hx of cervical spine surgery Z98.89 ; Erectile dysfunction, unspecified erectile dysfunction type N52.9 ; Idiopathic peripheral neuropathy G60.9 ; Anger R45.4 ; Anxiety associated with depression F41.8 ; Hyperlipemia E78.5 ; Wheezing R06.2 and Has daytime drowsiness R40.0 [facility] [address] [address] Nov, [place] [address] [address] Nov, [facility] [address] [place] [id number] [address] [place] [address] Sep, [facility] [address] [address] Sep, Acute midline low back pain without sciatica M54.5 [facility] [address] [place] [id number] [place] [address] Sep, Acute bilateral low back ekta n without sciatica M54.5 [facility] [address] [place] [id number] [address] [place] [address] Aug, [facility] [address] [place] [id number] [address] [place] [address] Jun, Wheezing R06.2 ; Candidal de rmatitis B37.2 ; Essential hypertension I10 ; Erectile dysfunction, unspecified erectile dysfunction type N52.9 ; Idiopathic peripheral neuropathy G60.9 ; Mixed hyperlipidemia E78.2 and Other stimulant dependence, 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 [facility] [address] [address] March, Essential hypertension I10 ; Hx of cervical spine surgery Z98.89 ; Idiopathic peripheral neuropathy G60.9 ; Mixed hyperlipidemia E78.2 ; Anger R45.4 ; Drug-induced erectile dysfunction N52.2 and Gastroesophageal reflux disease with esophagitis K21.0 [place] [address] [address] Feb, [place] [address] [address] Dec, Low back pain M54.5 [place] [address] [address] Dec, [place] [address] [address] Dec, Unspecified mood [affective] disorder F39 ; Anxiety disorder, unspecified F41.9 ; Other stimulant dependence, 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 and Cannabis dependence, uncomplicated F12.20 [place] [address] [address] Dec, Essential hypertension I10 ; Hyperlipemia E78.5 ; Erectile dysfunction, unspecified erectile dysfunction type N52.9 ; Anger R45.4 ; Mixed hyperlipidemia E78.2 ; Anxiety associated with depression F41.8 ; Elevated serum creatinine R79.89 ; 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 and Marijuana abuse F12.10 [place] [address] [address] Oct, Essential hypertension I10 ; Idiopathic peripheral neuropathy G60.9 ; Low back pain M54.5 ; Hx of cervical spine surgery Z98.89 ; Erectile dysfunction, unspecified erectile dysfunction type N52.9 ; Anger R45.4 ; Mixed hyperlipidemia E78.2 and Anxiety associated with depression F41.8 [place] [address] [address] Oct, Unspecified mood [affective] disorder F39 and Anxiety disorder, unspecified F41.9 [facility] [address] [id number] [address] [place] [address] Oct, Hyperlipemia E78.5 [facility] [address] [facility] [id number] [address] [place] [address] Oct, Essential hypertension I10 [facility] [address] [place] [id number] [address] [place] [address] Oct, [facility] [address] [facility] [id number] [address] [place] [address] Oct, Essential hypertension I10 ; Idiopathic peripheral neuropathy G60.9 ; Low back pain M54.5 ; Hx of cervical spine surgery Z98.89 ; Pain in right hand M79.641 ; Pain of left hand M79.642 ; Pain in left foot M79.672 ; Pain in right foot M79.671 ; Erectile dysfunction, unspecified erectile dysfunction type N52.9 and Anger R45.4 [facility] [address] [facility] [id number] [address] [place] [address] Sep, [facility] [address] [facility] [id number] [address] [place] [address] Jul, [facility] [address] [facility] [id number] [address] [place] [address] Jun, [facility] [address] [facility] [id number] [address] [place] [address] May, [facility] [address] [facility] [id number] [address] [place] [address] Apr, [facility] [address] [facility] [id number] [address] [place] [address] March, [facility] [address] [facility] [id number] [address] [place] [address] 14 Feb, 2015 [facility] [address] [facility] [id number] [address] [place] [address] Feb, [facility] [address] [facility] [id number] [address] [place] [address] Jan, [facility] [address] [id number] [address] [place] [address], [place] [address] Jan, [facility] [address] [id number] [address] [place] [address], [place] [address] Nov, [facility] [address] [id number] [address] [place] [address], [place] [address] Nov, [facility] [address] [id number] [address] [place] [address], [place] [address] Nov, [facility] [address] [id number] [address] [place] [address], [place] [address] Nov, [facility] [address] [id number] [address] [place] [address], [place] [address] Nov, [facility] [address] [id number] [address] [place] [address], [place] [address] Nov, [facility] [address] [id number] [address] [place] [address], [place] [address] Oct, [facility] [address] [id number] [address] [place] [address], [place] [address] Oct, [facility] [address] [id number] [address] [place] [address], [place] [address] Oct, [facility] [address] [id number] [address] [place] [address], [place] [address] Oct, [facility] [address] [id number] [address] [place] [address], [place] [address] Sep, [facility] [address] [id number] [address] [place] [address], [place] [address] Sep, [facility] [address] [id number] [address] [place] [address], [place] [address] Sep, [facility] [address] [id number] [address] [place] [address], [place] [address] Sep, [facility] [address] [id number] [address] [place] [address], [place] [address] 10 Sep, 2014 [facility] [address] [id number] [address] [place] [address], [place] [address] 16 Aug, 2014 [facility] [address] [id number] [address] [place] [address], [place] [address] 16 Aug, 2014 [facility] [address] [id number] [address] [place] [address], [place] [address] 15 Aug, 2014 [facility] [address] [id number] [address] [place] [address], [place] [address] 15 Aug, 2014 [facility] [address] [id number] [address] [place] [address], [place] [address] 15 Aug, 2014 [facility] [address] [id number] [address] [place] [address], [place] [address] 15 Aug, 2014 [facility] [address] [id number] [address] [place] [address], [place] [address] 13 Aug, 2014 [facility] [address] [id number] [address] [place] [address], [place] [address] 07 Aug, 2014 [facility] [address] [id number] [address] [place] [address], [place] [address] 07 Aug, 2014 [facility] [address] [id number] [address] [place] [address], [place] [address] 06 Aug, 2014 [facility] [address] [id number] [address] [place] [address], [place] [address] 06 Aug, 2014 [facility] [address] [id number] [address] [place] [address], [place] [address] 19 Jul, 2013 [facility] [address] [id number] [address] [place] [address], [place] [address] 19 Jul, 2013 [facility] [address] [id number] [address] [place] [address], [place] [address] 18 Jul, 2013 [facility] [address] [id number] [address] [place] [address], [place] [address] Jul, [facility] [address] [id number] [address] [place] [address], [place] [address] Jun, [facility] [address] [id number] [address] [place] [address], [place] [address] Jun, [facility] [address] [id number] [address] [place] [address], [place] [address] Jun, [facility] [address] [id number] [address] [place] [address], [place] [address] Jun, [facility] [address] [id number] [address] [place] [address], [place] [address] Jun, [facility] [address] [id number] [address] [place] [address], [place] [address] Jun, [facility] [address] [id number] [address] [place] [address], [place] [address] May, [facility] [address] [id number] [address] [place] [address], [place] [address] May, [facility] [address] [id number] [address] [place] [address], [place] [address] May, [facility] [address] [id number] [address] [place] [address], [place] [address] May, [facility] [address] [id number] [address] [place] [address], [place] [id number] May, [facility] [address] [id number] [address] [place] [address], [place] [address] May, [facility] [address] [id number] [address] [place] [address], [place] [address] May, [facility] [address] [id number] [address] [place] [address], [place] [address] May, [facility] [address] [id number] [address] [place] [address], [place] [address] May, [facility] [address] [id number] [address] [place] [address], [place] [address] May, [facility] [address] [id number] [address] [place] [address], [place] [address] May, [facility] [address] [id number] [address] [place] [address], [place] [address] May, [facility] [address] [id number] [address] [place] [address], [place] [address] Apr, [facility] [address] [id number] [address] [place] [address], [place] [address] Apr, [facility] [address] [id number] [address] [place] [address], [place] [address] March, [facility] [address] [id number] [address] [place] [address], [place] [address] March, [facility] [address] [id number] [address] [place] [address], [place] [address] March, [facility] [address] [id number] [address] [place] [address], [place] [address] March, [facility] [address] [id number] [address] [place] [address], [place] [address] Feb, [facility] [address] [id number] [address] [place] [address], [place] [address] Feb, [facility] [address] [id number] [address] [place] [address], [place] [address] Jan, [facility] [address] [id number] [address] [place] [address], [place] [address] Jan, [facility] [address] [id number] [address] [place] [address], [place] [address] Jan, [facility] [address] [id number] [address] [place] [address], [place] [address] Jan, [facility] [address] [id number] [address] [place] [address], [place] [address] Dec, [facility] [address] [id number] [address] [place] [address], [place] [address] Dec, [facility] [address] [id number] [address] [place] [address], [place] [address] Nov, [facility] [address] [id number] [address] [place] [address], [place] [address] Nov, [facility] [address] [id number] [address] [place] [address], [place] [address] Nov, [facility] [address] [id number] [address] [place] [address], [place] [address] Nov, [facility] [address] [id number] [address] [place] [address], [place] [address] Oct, [facility] [address] [id number] [address] [place] [address], [place] [address] Oct, [facility] [address] [id number] [address] [place] [address], [place] [address] Sep, [facility] [address] [id number] [address] [place] [address], [place] [address] Sep, [facility] [address] [id number] [address] [place] [address], [place] [address] Jul, [facility] [address] [id number] [address] [place] [address], [place] [address] Jul, [facility] [address] [id number] [address] [place] [address], [place] [address] Jul, [facility] [address] [id number] [address] [place] [address], [place] [address] Jun, [facility] [address] [id number] [address] [place] [address], [place] [address] Jun, [facility] [address] [id number] [address] [place] [address], [place] [address] May, [facility] [address] [id number] [address] [place] [phone] May, [facility] [address] [id number] [address] [place] [address], [place] [address] May, [facility] [address] [id number] [address] [place] [id number] March, [facility] [address] [id number] [address] [place] [address], [place] [address] Jan, [facility] [address] [id number] [address] [place] [address] Jan, [facility] [address] [id number] [address] [place] [address], [place] [address] Jan, [facility] [address] [id number] [address] [place] [address] Dec, [facility] [address] [id number] [address] [place] [address] May, [facility] [address] [id number] [address] [place] [address] March, [facility] [address] [id number] [address] [place] [phone] Jan, [facility] [address] [id number] [address] [place] [id number] Aug, [facility] [address] [id number] [address] [place] [id number] Aug, [facility] [address] [id number] [address] [place] [id number] Aug, [facility] [address] [id number] [address] [place] [id number] Jun, [facility] [address] [id number] [address] [place] [id number] 14 May, 2011 [facility] [address] [id number] [address] [place] [id number] Oct, IMMUNIZATIONS No Known Immunizations SOCIAL HISTORY [...]
--- OUTSIDE RECORDS SUMMARY | 2020-02-05 11:00 | XMS REPORT ---
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 Name Role Phone BÁRBARA BHANDARI Unavailable PROBLEMS Type Condition ICD9-CM Code JKN82-UO Code Onset Dates Condition S tatus SNOMED Code Problem Anger R45.4 Active 86313144 Problem Hx of cervical spine surgery Z98.89 A ctive 843676185 Problem Pain in right foot M79.671 Active 4 3742186 Problem Erectile dysfunction, unspecified erectile dysfunction typ e N52.9 Active 785295122 Problem Candidal dermatitis B37.2 Active 23255974 Problem Gastroesophageal reflux disease with esophagitis K 21.0 Active 222720302 Problem Anxiety disorder, unspecified F41.9 Active 164305537 Problem Mixed hyperlipidemia E78.2 Active 169759859 Problem 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 Active 990935275 Problem Unspecified mood [affective] disorder F39 Active 718415216 Problem Other stimulant dependence, 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 Active 801901906 Problem Marijuana abuse F12.10 Active 3734 4009 Problem Drug-induced erectile dysfunction N52.2 Active 263244753 Problem Cannabis dependence, uncomplicated F12.20 Active 52016844 Problem Wheezing R06.2 Active 23374489 Problem Psychophysiological insomnia F51.04 A ctive 153198219 Problem Pure hypercholesterolemia E78.00 Acti ve 172113965 Problem Anxiety F41.9 Active 80950250 Problem Idiopathic peripheral neuropathy G60.9 Active 19221944 Problem Polydipsia R63.1 Active 86025468 Problem Low back pain M54.5 Active 015539 005 Problem Essential hypertension I10 Active 13315638 Problem Pain in right knee M25.561 Active 3 06142351289248 Problem Mood disorder F39 Active 387559 05 Problem Other chronic pain G89.29 Active 8 7970741 Problem Primary osteoarthritis of left hip M16.12 Active [id number] ALLERGIES No Information ENCOUNTERS Encounter Location Date Diagnosis [facility] [address] [facility] [id number] [address] [place] [address] March, [facility] [address] [facility] [id number] [address] [place] [address] March, Essential hypertension I10 [facility] [address] [facility] [id number] [address] [place] [address] March, [facility] [address] [facility] [id number] [address] [place] [address] Feb, [facility] [address] [facility] [id number] [address] [place] [address] Feb, [facility] [address] [facility] [id number] [address] [place] [address] Feb, [facility] [address] [place] [id number] [place] [address] Feb, Prediabetes R73.03 [facility] [address] [facility] [id number] [address] [place] [address] Jan, [facility] [address] [address] Jan, [facility] [address] [place] [id number] [address] [place] [address] Jan, Polydipsia R63.1 ; Periphera l edema R60.9 ; Pre-diabetes R73.03 and Tongue lesion K14.8 [facility] [address] [facility] [id number] [address] [place] [address] Sep, Other chronic pain G89.29 [facility] [address] [place] [id number] [address] [place] [address] Sep, Acute low back pain, unspeci fied back pain laterality, with sciatica presence unspecified M54.5 [facility] [address] [place] [id number] [address] [place] [address] Sep, Low vitamin D level R79.89 [facility] [address] [place] [id number] [address] [place] [address] Aug, Acute low back pain, unspeci fied back pain laterality, with sciatica presence unspecified M54.5 and Primary osteoarthritis of left hip M16.12 [facility] [address] [id number] [address] [place] [address] Aug, [place] [address] [id number] [address] [place] [address] Jun, [place] [address] [id number] [address] [place] [address] Jun, Other chronic pain G89.29 an d Pain in right knee M25.561 [place] [address] [id number] [address] [place] [address] May, Primary osteoarthritis of le ft hip M16.12 ; Pain in left hip M25.552 ; Other acute postprocedural pain G89.18 and Anxiety F41.9 [place] [id number] [id number] [address] [place] [address] May, [place] [address] [id number] [address] [place] [address] Apr, Pain in right knee M25.561 a nd Mood disorder F39 [place] [address] [id number] [address] [place] [address] Apr, [facility] [address] [id number] [address] [place] [id number] March, [facility] [address] [id number] [address] [place] [id number] March, Encounter for dental exam an d cleaning w/o abnormal findings Z01.[address] [facility] [address] [id number] [address] [place] [id number] March, Dental examination Z01.[address] [facility] [address] [id number] [address] [place] [address] [id number] 11 May, 2018 Dental examination Z01.20 [facility] [address] [id number] [address] [place] [phone] March, [facility] [address] [id number] [address] [place] [address] March, [facility] [address] [id number] [address] [place] [address] Feb, [facility] [address] [id number] [address] [place] [address] Feb, Primary osteoarthritis of le ft hip M16.12 [facility] [address] [id number] [address] [place] [address] Feb, Other chronic pain G89.29 an d Pain in left hip M25.552 [facility] [address] [id number] [address] [place] [address] Feb, Acute pain of left hip M25.5 52 [facility] [address] [id number] [address] [place] [address] Feb, Mood disorder F39 and Pain i n right knee M25.561 [facility] [address] [id number] [address] [place] [address] Jan, Other chronic pain G89.29 [facility] [address] [id number] [address] [place] [address] Jan, Mood disorder F39 [facility] [address] [id number] [address] [place] [address] Jan, Pain in right knee M25.561 [facility] [address] [id number] [address] [place] [address] Jan, Pain in left hip M25.552 and Other chronic pain G89.29 [facility] [address] [id number] [address] [place] [address] Jan, Acute pain of left hip M25.5 52 [facility] [address] [address] Jan, Acute pain of left hip M25.5 52 [place] [address] [address] Jan, Mood disorder F39 and Acute pain of left hip M25.552 [place] [address] [address] Nov, Mood disorder F39 [place] [address] [address] Oct, Essential hypertension I10 ; Mixed hyperlipidemia E78.2 and Low back pain M54.5 [facility] [address] [id number] May, [place] [address] [address] Apr, Essential hypertension I10 ; Anger R45.4 ; Mixed hyperlipidemia E78.2 ; Drug-induced erectile dysfunction N52.2 ; Gastroesophageal reflux disease with esophagitis K21.0 ; Pure hypercholesterolemia E78.00 ; Pain in right knee M25.561 ; Psychophysiological insomnia F51.04 and Wheezing R06.2 [place] [address] [address] March, Hx of cervical spine surgery Z98.89 [place] [address] [address] March, [place] [address] [address] Feb, Anxiety associated with depr ession F41.8 [place] [address] [address] Jan, Anxiety associated with depr ession F41.8 [place] [address] [address] Dec, [place] [address] [address] Dec, [facility] [address] [place] [id number] [address] [place] [phone] Dec, Essential hypertension I10 ; Erectile dysfunction, unspecified erectile dysfunction type N52.9 and Hyperlipemia E78.5 [facility] [address] [place] [id number] [address] [place] [address] Nov, Essential hypertension I10 ; Hx of cervical spine surgery Z98.89 ; Erectile dysfunction, unspecified erectile dysfunction type N52.9 ; Idiopathic peripheral neuropathy G60.9 ; Anger R45.4 ; Anxiety associated with depression F41.8 ; Hyperlipemia E78.5 ; Wheezing R06.2 and Has daytime drowsiness R40.0 [facility] [address] [address] Nov, [place] [address] [address] Nov, [facility] [address] [place] [id number] [address] [place] [address] Sep, [facility] [address] [address] Sep, Acute midline low back pain without sciatica M54.5 [facility] [address] [place] [id number] [place] [address] Sep, Acute bilateral low back ekta n without sciatica M54.5 [facility] [address] [place] [id number] [address] [place] [phone] Aug, [facility] [address] [place] [id number] [address] [place] [phone] Jun, Wheezing R06.2 ; Candidal de rmatitis B37.2 ; Essential hypertension I10 ; Erectile dysfunction, unspecified erectile dysfunction type N52.9 ; Idiopathic peripheral neuropathy G60.9 ; Mixed hyperlipidemia E78.2 and Other stimulant dependence, 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 [facility] [address] [address] March, Essential hypertension I10 ; Hx of cervical spine surgery Z98.89 ; Idiopathic peripheral neuropathy G60.9 ; Mixed hyperlipidemia E78.2 ; Anger R45.4 ; Drug-induced erectile dysfunction N52.2 and Gastroesophageal reflux disease with esophagitis K21.0 [place] [address] [address] Feb, [place] [address] [address] Dec, Low back pain M54.5 [place] [address] [address] Dec, [place] [address] [address] Dec, Unspecified mood [affective] disorder F39 ; Anxiety disorder, unspecified F41.9 ; Other stimulant dependence, 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 and Cannabis dependence, uncomplicated F12.20 [place] [address] [address] Dec, Essential hypertension I10 ; Hyperlipemia E78.5 ; Erectile dysfunction, unspecified erectile dysfunction type N52.9 ; Anger R45.4 ; Mixed hyperlipidemia E78.2 ; Anxiety associated with depression F41.8 ; Elevated serum creatinine R79.89 ; 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 and Marijuana abuse F12.10 [place] [address] [address] Oct, Essential hypertension I10 ; Idiopathic peripheral neuropathy G60.9 ; Low back pain M54.5 ; Hx of cervical spine surgery Z98.89 ; Erectile dysfunction, unspecified erectile dysfunction type N52.9 ; Anger R45.4 ; Mixed hyperlipidemia E78.2 and Anxiety associated with depression F41.8 [place] [address] [address] Oct, Unspecified mood [affective] disorder F39 and Anxiety disorder, unspecified F41.9 [facility] [address] [id number] [address] [place] [address] Oct, Hyperlipemia E78.5 [facility] [address] [facility] [id number] [address] [place] [address] Oct, Essential hypertension I10 [facility] [address] [place] [id number] [address] [place] [address] Oct, [facility] [address] [facility] [id number] [address] [place] [address] Oct, Essential hypertension I10 ; Idiopathic peripheral neuropathy G60.9 ; Low back pain M54.5 ; Hx of cervical spine surgery Z98.89 ; Pain in right hand M79.641 ; Pain of left hand M79.642 ; Pain in left foot M79.672 ; Pain in right foot M79.671 ; Erectile dysfunction, unspecified erectile dysfunction type N52.9 and Anger R45.4 [facility] [address] [facility] [id number] [address] [place] [address] Sep, [facility] [address] [facility] [id number] [address] [place] [address] Jul, [facility] [address] [facility] [id number] [address] [place] [phone] Jun, [facility] [address] [facility] [id number] [address] [place] [address] May, [facility] [address] [facility] [id number] [address] [place] [address] Apr, [facility] [address] [facility] [id number] [address] [place] [address] March, [facility] [address] [facility] [id number] [address] [place] [phone] 14 Feb, 2015 [facility] [address] [facility] [id number] [address] [place] [address] Feb, [facility] [address] [facility] [id number] [address] [place] [phone] Jan, [facility] [address] [id number] [address] [place] [address], [place] [address] Jan, [facility] [address] [id number] [address] [place] [address], [place] [address] Nov, [facility] [address] [id number] [address] [place] [address], [place] [address] Nov, [facility] [address] [id number] [address] [place] [address], [place] [address] Nov, [facility] [address] [id number] [address] [place] [address], [place] [address] Nov, [facility] [address] [id number] [address] [place] [address], [place] [address] Nov, [facility] [address] [id number] [address] [place] [address], [place] [address] Nov, [facility] [address] [id number] [address] [place] [address], [place] [address] Oct, [facility] [address] [id number] [address] [place] [address], [place] [address] Oct, [facility] [address] [id number] [address] [place] [address], [place] [address] Oct, [facility] [address] [id number] [address] [place] [address], [place] [address] Oct, [facility] [address] [id number] [address] [place] [address], [place] [address] Sep, [facility] [address] [id number] [address] [place] [address], [place] [address] Sep, [facility] [address] [id number] [address] [place] [address], [place] [address] Sep, [facility] [address] [id number] [address] [place] [address], [place] [address] Sep, [facility] [address] [id number] [address] [place] [address], [place] [address] 10 Sep, 2014 [facility] [address] [id number] [address] [place] [address], [place] [address] 16 Aug, 2014 [facility] [address] [id number] [address] [place] [address], [place] [address] 16 Aug, 2014 [facility] [address] [id number] [address] [place] [address], [place] [address] 15 Aug, 2014 [facility] [address] [id number] [address] [place] [address], [place] [address] 15 Aug, 2014 [facility] [address] [id number] [address] [place] [address], [place] [address] 15 Aug, 2014 [facility] [address] [id number] [address] [place] [address], [place] [address] 15 Aug, 2014 [facility] [address] [id number] [address] [place] [address], [place] [address] 13 Aug, 2014 [facility] [address] [id number] [address] [place] [address], [place] [address] 07 Aug, 2014 [facility] [address] [id number] [address] [place] [address], [place] [address] 07 Aug, 2014 [facility] [address] [id number] [address] [place] [address], [place] [address] 06 Aug, 2014 [facility] [address] [id number] [address] [place] [address], [place] [address] 06 Aug, 2014 [facility] [address] [id number] [address] [place] [address], [place] [address] 19 Jul, 2013 [facility] [address] [id number] [address] [place] [address], [place] [address] 19 Jul, 2013 [facility] [address] [id number] [address] [place] [address], [place] [address] 18 Jul, 2013 [facility] [address] [id number] [address] [place] [address], [place] [address] Jul, [facility] [address] [id number] [address] [place] [address], [place] [address] Jun, [facility] [address] [id number] [address] [place] [address], [place] [address] Jun, [facility] [address] [id number] [address] [place] [address], [place] [address] Jun, [facility] [address] [id number] [address] [place] [address], [place] [address] Jun, [facility] [address] [id number] [address] [place] [address], [place] [address] Jun, [facility] [address] [id number] [address] [place] [address], [place] [address] Jun, [facility] [address] [id number] [address] [place] [address], [place] [address] May, [facility] [address] [id number] [address] [place] [address], [place] [address] May, [facility] [address] [id number] [address] [place] [address], [place] [address] May, [facility] [address] [id number] [address] [place] [address], [place] [address] May, [facility] [address] [id number] [address] [place] [address], [place] [id number] May, [facility] [address] [id number] [address] [place] [address], [place] [address] May, [facility] [address] [id number] [address] [place] [address], [place] [address] May, [facility] [address] [id number] [address] [place] [address], [place] [address] May, [facility] [address] [id number] [address] [place] [address], [place] [address] May, [facility] [address] [id number] [address] [place] [address], [place] [address] May, [facility] [address] [id number] [address] [place] [address], [place] [address] May, [facility] [address] [id number] [address] [place] [address], [place] [address] May, [facility] [address] [id number] [address] [place] [address], [place] [address] Apr, [facility] [address] [id number] [address] [place] [address], [place] [address] Apr, [facility] [address] [id number] [address] [place] [address], [place] [address] March, [facility] [address] [id number] [address] [place] [address], [place] [address] March, [facility] [address] [id number] [address] [place] [address], [place] [address] March, [facility] [address] [id number] [address] [place] [address], [place] [address] March, [facility] [address] [id number] [address] [place] [address], [place] [address] Feb, [facility] [address] [id number] [address] [place] [address], [place] [address] Feb, [facility] [address] [id number] [address] [place] [address], [place] [address] Jan, [facility] [address] [id number] [address] [place] [address], [place] [address] Jan, [facility] [address] [id number] [address] [place] [address], [place] [address] Jan, [facility] [address] [id number] [address] [place] [address], [place] [address] Jan, [facility] [address] [id number] [address] [place] [address], [place] [address] Dec, [facility] [address] [id number] [address] [place] [address], [place] [address] Dec, [facility] [address] [id number] [address] [place] [address], [place] [address] Nov, [facility] [address] [id number] [address] [place] [address], [place] [address] Nov, [facility] [address] [id number] [address] [place] [address], [place] [address] Nov, [facility] [address] [id number] [address] [place] [address], [place] [address] Nov, [facility] [address] [id number] [address] [place] [address], [place] [address] Oct, [facility] [address] [id number] [address] [place] [address], [place] [address] Oct, [facility] [address] [id number] [address] [place] [address], [place] [id number] Sep, [facility] [address] [id number] [address] [place] [address], [place] [id number] Sep, [facility] [address] [id number] [address] [place] [address], [place] [id number] Jul, [facility] [address] [id number] [address] [place] [address], [place] [id number] Jul, [facility] [address] [id number] [address] [place] [address], [place] [id number] Jul, [facility] [address] [id number] [address] [place] [address], [place] [id number] Jun, [facility] [address] [id number] [address] [place] [address], [place] [id number] Jun, [facility] [address] [id number] [address] [place] [address], [place] [id number] May, [facility] [address] [id number] [address] [place] [id number] May, [facility] [address] [id number] [address] [place] [address], [place] [id number] May, [facility] [address] [id number] [address] [place] [id number] March, [facility] [address] [id number] [address] [place] [address], [place] [id number] Jan, [facility] [address] [id number] [address] [place] [id number] Jan, [facility] [address] [id number] [address] [place] [address], [place] [id number] Jan, [facility] [address] [id number] [address] [place] [id number] Dec, [facility] [address] [id number] [address] [place] [id number] May, [facility] [address] [id number] [address] [place] [id number] March, [facility] [address] [id number] [address] [place] [id number] Jan, [facility] [address] [id number] [address] [place] [id number] Aug, [facility] [address] [id number] [address] [place] [id number] Aug, [facility] [address] [id number] [address] [place] [id number] Aug, [facility] [address] [id number] [address] [place] [id number] Jun, [facility] [address] [id number] [place] [phone] 14 May, 2011 [facility] [address] [id number] [place] [phone] Oct, IMMUNIZATIONS No Known Immunizations SOCIAL HISTORY Never Assessed REASON FOR VISIT PLAN OF CARE VITAL SIGNS Height 66 in 2014-11-02 Weight 197.4 lbs 2014-11-02 Temperature 96.8 degrees Fahrenheit 2014-11-02 Heart Rate 90 bpm 2014-11-02 Respiratory Rate 18 2014-11-02 Blood pressure systolic 124 mmHg 2014-11-02 Blood pressure diastolic 86 mmHg 2014-11-02 MEDICATIONS Unknown Medications RESULTS No Results PROCEDURES Procedure Date Ordered Result Body Site COMPREHEN METABOLIC PANEL Nov 02, 2014 VENIPUNCT, ROUTINE* Nov 02, 2014 INSTRUCTIONS MEDICATIONS ADMINISTERED No Known Medications [...]
--- OUTSIDE RECORDS SUMMARY | 2020-02-05 11:00 | XMS REPORT ---
Author Author Jelani Craig Organization [facility] Address [address] [place] [address] Care Team Providers [facility] [place] [facility] Coordinator Name Role Phone KRISTEL Craig Unavailable PROBLEMS Type Condition ICD9-CM Code [id number] Code Onset Dates Condition S tatus SNOMED Code Problem Anger R45.4 Active 54767143 Problem Hx of cervical spine surgery Z98.89 A ctive 177198042 Problem Pain in right foot M79.671 Active 4 4490808 Problem Erectile dysfunction, unspecified erectile dysfunction typ e N52.9 Active 669202166 Problem Candidal dermatitis B37.2 Active 72848532 Problem Gastroesophageal reflux disease with esophagitis K 21.0 Active 103533051 Problem Anxiety disorder, unspecified F41.9 Active 878493605 Problem Mixed hyperlipidemia E78.2 Active 163270113 Problem 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 Active 832991457 Problem Unspecified mood [affective] disorder F39 Active 532257384 Problem Other stimulant dependence, 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 Active 463487251 Problem Marijuana abuse F12.10 Active 3734 4009 Problem Drug-induced erectile dysfunction N52.2 Active 895109828 Problem Cannabis dependence, uncomplicated F12.20 Active 07320354 Problem Wheezing R06.2 Active 75443962 Problem Psychophysiological insomnia F51.04 A ctive 682113342 Problem Pure hypercholesterolemia E78.00 Acti ve 882186897 Problem Anxiety F41.9 Active 25345729 Problem Idiopathic peripheral neuropathy G60.9 Active 53485642 Problem Polydipsia R63.1 Active 47588677 Problem Low back pain M54.5 Active 119411 005 Problem Essential hypertension I10 Active 07594439 Problem Pain in right knee M25.561 Active 3 [id number] Problem Mood disorder F39 Active 715677 05 Problem Other chronic pain G89.29 Active 8 2446662 Problem Primary osteoarthritis of left hip M16.12 Active [id number] ALLERGIES No Information ENCOUNTERS Encounter Location Date Diagnosis [facility] [address] [facility] [id number] [address] [place] [address] March, [facility] [address] [facility] [id number] [address] [place] [address] March, Essential hypertension I10 [facility] [address] [facility] [id number] [address] [place] [phone] March, [facility] [address] [facility] [id number] [address] [place] [address] Feb, [facility] [address] [facility] [id number] [address] [place] [address] Feb, [facility] [address] [facility] [id number] [address] [place] [phone] Feb, [facility] [address] [facility] [id number] [address] [place] [address] Feb, Prediabetes R73.03 [facility] [address] [facility] [id number] [address] [place] [phone] Jan, [facility] [address] [place] [id number] [address] [place] [phone] Jan, [facility] [address] [facility] [id number] [address] [place] [address] Jan, Polydipsia R63.1 ; Periphera l edema R60.9 ; Pre-diabetes R73.03 and Tongue lesion K14.8 [facility] [address] [facility] [id number] [address] [place] [address] Sep, Other chronic pain G89.29 [facility] [address] [place] [id number] [address] [place] [phone] 06 Sep, 2018 Acute low back pain, unspeci fied back pain laterality, with sciatica presence unspecified M54.5 [facility] [address] [facility] [id number] [address] [place] [address] Sep, Low vitamin D level R79.89 [facility] [address] [id number] [address] [place] [address] Aug, Acute low back pain, unspeci fied back pain laterality, with sciatica presence unspecified M54.5 and Primary osteoarthritis of left hip M16.12 [facility] [address] [id number] [address] [place] [address] Aug, [facility] [address] [id number] [address] [place] [address] Jun, [facility] [address] [id number] [address] [place] [address] Jun, Other chronic pain G89.29 an d Pain in right knee M25.561 [facility] [address] [id number] [address] [place] [address] May, Primary osteoarthritis of le ft hip M16.12 ; Pain in left hip M25.552 ; Other acute postprocedural pain G89.18 and Anxiety F41.9 [facility] [address] [id number] [address] [place] [address] May, [facility] [address] [id number] [address] [place] [address] Apr, Pain in right knee M25.561 a nd Mood disorder F39 [facility] [address] [id number] [address] [place] [address] Apr, [facility] [address] [id number] [address] [place] [phone] March, [facility] [address] [id number] [address] [place] [address] [phone] March, Encounter for dental exam an d cleaning w/o abnormal findings Z01.20 [facility] [address] [id number] [address] [place] [phone] March, Dental examination Z01.20 [facility] [address] [id number] [address] [place] [id number] March, Dental examination Z01.20 [facility] [address] [id number] [address] [place] [address] March, [facility] [address] [id number] [address] [place] [address] March, [facility] [address] [id number] [address] [place] [address] Feb, [facility] [address] [id number] [address] [place] [address] Feb, Primary osteoarthritis of le ft hip M16.12 [facility] [address] [id number] [address] [place] [address] Feb, Other chronic pain G89.29 an d Pain in left hip M25.552 [facility] [address] [id number] [address] [place] [address] Feb, Acute pain of left hip M25.5 52 [facility] [address] [id number] [address] [place] [address] Feb, Mood disorder F39 and Pain i n right knee M25.561 [facility] [address] [id number] [address] [place] [address] Jan, Other chronic pain G89.29 [facility] [address] [id number] [address] [place] [address] Jan, Mood disorder F39 [facility] [address] [id number] [address] [place] [address] Jan, Pain in right knee M25.561 [facility] [address] [id number] [address] [place] [address] Jan, Pain in left hip M25.552 and Other chronic pain G89.29 [facility] [address] [id number] [address] [place] [address] Jan, Acute pain of left hip M25.5 52 [facility] [address] [address] Jan, Acute pain of left hip M25.5 [address] [place] [address] [address] Jan, Mood disorder F39 and Acute pain of left hip M25.552 [place] [address] [address] Nov, Mood disorder F39 [place] [address] [address] Oct, Essential hypertension I10 ; Mixed hyperlipidemia E78.2 and Low back pain M54.5 [place] [address] [id number] May, [place] [address] [address] Apr, Essential hypertension I10 ; Anger R45.4 ; Mixed hyperlipidemia E78.2 ; Drug-induced erectile dysfunction N52.2 ; Gastroesophageal reflux disease with esophagitis K21.0 ; Pure hypercholesterolemia E78.00 ; Pain in right knee M25.561 ; Psychophysiological insomnia F51.04 and Wheezing R06.2 [place] [address] [place] [id number] [address] [place] [address] March, Hx of cervical spine surgery Z98.89 [place] [address] [address] March, [place] [address] [address] Feb, Anxiety associated with depr ession F41.8 [place] [address] [address] Jan, Anxiety associated with depr ession F41.8 [place] [address] [place] [id number] [address] [place] [address] Dec, [place] [address] [address] Dec, [place] [address] [address] Dec, Essential hypertension I10 ; Erectile dysfunction, unspecified erectile dysfunction type N52.9 and Hyperlipemia E78.5 [place] [address] [address] Nov, Essential hypertension I10 ; Hx of cervical spine surgery Z98.89 ; Erectile dysfunction, unspecified erectile dysfunction type N52.9 ; Idiopathic peripheral neuropathy G60.9 ; Anger R45.4 ; Anxiety associated with depression F41.8 ; Hyperlipemia E78.5 ; Wheezing R06.2 and Has daytime drowsiness R40.0 [place] [address] [address] Nov, [place] [address] [address] Nov, [place] [address] [address] Sep, [place] [address] [address] Sep, Acute midline low back pain without sciatica M54.5 [place] [address] [address] Sep, Acute bilateral low back ekta n without sciatica M54.5 [place] [address] [address] Aug, [place] [address] [address] Jun, Wheezing R06.2 ; Candidal de rmatitis B37.2 ; Essential hypertension I10 ; Erectile dysfunction, unspecified erectile dysfunction type N52.9 ; Idiopathic peripheral neuropathy G60.9 ; Mixed hyperlipidemia E78.2 and Other stimulant dependence, 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 [place] [address] [address] March, Essential hypertension I10 ; Hx of cervical spine surgery Z98.89 ; Idiopathic peripheral neuropathy G60.9 ; Mixed hyperlipidemia E78.2 ; Anger R45.4 ; Drug-induced erectile dysfunction N52.2 and Gastroesophageal reflux disease with esophagitis K21.0 [place] [address] [address] Feb, [place] [address] [address] Dec, Low back pain M54.[address] [address] Dec, [place] [address] [address] Dec, Essential hypertension I10 ; Hyperlipemia E78.5 ; Erectile dysfunction, unspecified erectile dysfunction type N52.9 ; Anger R45.4 ; Mixed hyperlipidemia E78.2 ; Anxiety associated with depression F41.8 ; Elevated serum creatinine R79.89 ; 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 and Marijuana abuse F12.10 [place] [address] [address] Dec, Unspecified mood [affective] disorder F39 ; Anxiety disorder, unspecified F41.9 ; Other stimulant dependence, 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 and Cannabis dependence, uncomplicated F12.20 [place] [address] [address] Oct, Essential hypertension I10 ; Idiopathic peripheral neuropathy G60.9 ; Low back pain M54.5 ; Hx of cervical spine surgery Z98.89 ; Erectile dysfunction, unspecified erectile dysfunction type N52.9 ; Anger R45.4 ; Mixed hyperlipidemia E78.2 and Anxiety associated with depression F41.8 [place] [address] [address] Oct, Unspecified mood [affective] disorder F39 and Anxiety disorder, unspecified F41.9 [facility] [address] [facility] [id number] [address] [place] [address] Oct, Hyperlipemia E78.5 [facility] [address] [facility] [id number] [address] [place] [address] Oct, Essential hypertension I10 [facility] [address] [place] [id number] [address] [place] [phone] Oct, [facility] [address] [place] [id number] [address] [place] [address] Oct, Essential hypertension I10 ; Idiopathic peripheral neuropathy G60.9 ; Low back pain M54.5 ; Hx of cervical spine surgery Z98.89 ; Pain in right hand M79.641 ; Pain of left hand M79.642 ; Pain in left foot M79.672 ; Pain in right foot M79.671 ; Erectile dysfunction, unspecified erectile dysfunction type N52.9 and Anger R45.4 [facility] [address] [place] [id number] [address] [place] [id number] Sep, [facility] [address] [facility] [id number] [address] [place] [address] Jul, [facility] [address] [place] [id number] [address] [place] [address] Jun, [facility] [address] [facility] [id number] [address] [place] [phone] May, [facility] [address] [place] [id number] [address] [place] [phone] Apr, [facility] [address] [facility] [id number] [address] [place] [phone] March, [facility] [address] [place] [id number] [address] [place] [phone] 14 Feb, 2015 [facility] [address] [place] [id number] [address] [place] [phone] Feb, [facility] [address] [id number] [address] [place] [address], [place] [address] Jan, [facility] [address] [id number] [address] [place] [address], [place] [address] Jan, [facility] [address] [id number] [address] [place] [address], [place] [address] Nov, [facility] [address] [id number] [address] [place] [address], [place] [address] Nov, [facility] [address] [id number] [address] [place] [address], [place] [address] Nov, [facility] [address] [id number] [address] [place] [address], [place] [address] Nov, [facility] [address] [id number] [address] [place] [address], [place] [address] Nov, [facility] [address] [id number] [address] [place] [address], [place] [address] Nov, [facility] [address] [id number] [address] [place] [address], [place] [address] Oct, [facility] [address] [id number] [address] [place] [address], [place] [address] Oct, [facility] [address] [id number] [address] [place] [address], [place] [address] Oct, [facility] [address] [id number] [address] [place] [address], [place] [address] Oct, [facility] [address] [id number] [address] [place] [address], [place] [address] Sep, [facility] [address] [id number] [address] [place] [address], [place] [address] Sep, [facility] [address] [id number] [address] [place] [address], [place] [address] Sep, [facility] [address] [id number] [address] [place] [address], [place] [address] Sep, [facility] [address] [id number] [address] [place] [address], [place] [address] 10 Sep, 2014 [facility] [address] [id number] [address] [place] [address], [place] [address] 16 Aug, 2014 [facility] [address] [id number] [address] [place] [address], [place] [address] 16 Aug, 2014 [facility] [address] [id number] [address] [place] [address], [place] [address] 15 Aug, 2014 [facility] [address] [id number] [address] [place] [address], [place] [address] 15 Aug, 2014 [facility] [address] [id number] [address] [place] [address], [place] [address] 15 Aug, 2014 [facility] [address] [id number] [address] [place] [address], [place] [address] 15 Aug, 2014 [facility] [address] [id number] [address] [place] [address] 13 Aug, 2014 [facility] [address] [id number] [address] [place] [address], [place] [address] 07 Aug, 2014 [facility] [address] [id number] [address] [place] [address] 07 Aug, 2014 [facility] [address] [id number] [address] [place] [id number] 06 Aug, 2014 [facility] [address] [id number] [address] [place] [phone] 06 Aug, 2014 [facility] [address] [id number] [address] [place] [address], [place] [address] 19 Jul, 2014 [facility] [address] [id number] [address] [place] [phone] 19 Jul, 2014 [facility] [address] [id number] [address] [place] [address] 18 Jul, 2014 [facility] [address] [id number] [address] [place] [address] Jul, [facility] [address] [id number] [address] [place] [address], [place] [address] Jun, [facility] [address] [id number] [address] [place] [address], [place] [address] Jun, [facility] [address] [id number] [address] [place] [address], [place] [address] Jun, [facility] [address] [id number] [address] [place] [address], [place] [address] Jun, [facility] [address] [id number] [address] [place] [address], [place] [address] Jun, [facility] [address] [id number] [address] [place] [address], [place] [address] Jun, [facility] [address] [id number] [address] [place] [address], [place] [address] May, [facility] [address] [id number] [address] [place] [address], [place] [address] May, [facility] [address] [id number] [address] [place] [address], [place] [address] May, [facility] [address] [id number] [address] [place] [address], [place] [address] May, [facility] [address] [id number] [address] [place] [address] [id number] May, [facility] [address] [id number] [address] [place] [address], [place] [address] May, [facility] [address] [id number] [address] [place] [address], [place] [address] May, [facility] [address] [id number] [address] [place] [address], [place] [address] May, [facility] [address] [id number] [address] [place] [address], [place] [address] May, [facility] [address] [id number] [facility] [place] [address] May, [facility] [address] [id number] [facility] [place] [address] May, [facility] [address] [id number] [address] [place] [address], [place] [address] May, [facility] [address] [id number] [address] [place] [address], [place] [address] Apr, [facility] [address] [id number] [address] [place] [address], [place] [address] Apr, [facility] [address] [id number] [address] [place] [address], [place] [address] March, [facility] [address] [id number] [address] [place] [address], [place] [address] March, [facility] [address] [id number] [address] [place] [address], [place] [address] March, [facility] [address] [id number] [address] [place] [address], [place] [address] March, [facility] [address] [id number] [address] [place] [address], [place] [address] Feb, [facility] [address] [id number] [address] [place] [address], [place] [address] Feb, [facility] [address] [id number] [address] [place] [address], [place] [address] Jan, [facility] [address] [id number] [address] [place] [address], [place] [address] Jan, [facility] [address] [id number] [address] [place] [address], [place] [address] Jan, [facility] [address] [id number] [address] [place] [address], [place] [address] Jan, [facility] [address] [id number] [address] [place] [address], [place] [address] Dec, [facility] [address] [id number] [address] [place] [address], [place] [address] Dec, [facility] [address] [id number] [address] [place] [address], [place] [address] Nov, [facility] [address] [id number] [address] [place] [address], [place] [address] Nov, [facility] [address] [id number] [address] [place] [address], [place] [address] Nov, [facility] [address] [id number] [address] [place] [address], [place] [address] Nov, [facility] [address] [id number] [address] [place] [address], [place] [address] Oct, [facility] [address] [id number] [address] [place] [address], [place] [address] Oct, [facility] [address] [id number] [address] [place] [address], [place] [address] Sep, [facility] [address] [id number] [address] [place] [address], [place] [address] Sep, [facility] [address] [id number] [address] [place] [address], [place] [address] Jul, [facility] [address] [id number] [address] [place] [address], [place] [address] Jul, [facility] [address] [id number] [address] [place] [address], [place] [address] Jul, [facility] [address] [id number] [address] [place] [address], [place] [address] Jun, [facility] [address] [id number] [address] [place] [address], [place] [address] Jun, [facility] [address] [id number] [address] [place] [address], [place] [address] May, [facility] [address] [id number] [address] [place] [address], [place] [address] May, [facility] [address] [id number] [address] [place] [address], [place] [address] May, [facility] [address] [id number] [address] [place] [address], [place] [address] March, [facility] [address] [id number] [address] [place] [address], [place] [address] Jan, [facility] [address] [id number] [address] [place] [address], [place] [address] Jan, [facility] [address] [id number] [address] [place] [address], [place] [address] Jan, [facility] [address] [id number] [address] [place] [address], [place] [address] Dec, [facility] [address] [id number] [address] [place] [address], [place] [address] May, [facility] [address] [id number] [address] [place] [address], [place] [address] March, [facility] [address] [id number] [address] [place] [address], [place] [address] Jan, [facility] [address] [id number] [address] [place] [address], [place] [address] Aug, [facility] [address] [id number] [address] [place] [address], [place] [address] Aug, [facility] [address] [id number] [address] [place] [id number] Aug, [facility] [address] [id number] [address] [place] [address], [place] [address] Jun, [facility] [address] [id number] [address] [place] [address], [place] [id number] 14 May, 2011 [facility] [address] [id number] [address] [place] [id number] Oct, IMMUNIZATIONS No Known Immunizations SOCIAL HISTORY Never Assessed REASON FOR VISIT PLAN OF CARE VITAL SIGNS Height 66 in 2014-07-29 Weight 180.31 lbs 2014-07-29 Temperature 96.6 degrees Fahrenheit 2014-07-29 Heart Rate 78 bpm 2014-07-29 Respiratory Rate 20 2014-07-29 Blood pressure systolic 152 mmHg 2014-07-29 Blood pressure diastolic 98 mmHg 2014-07-29 MEDICATIONS Unknown Medications RESULTS No Results PROCEDURES [...]
--- OUTSIDE RECORDS SUMMARY | 2020-02-05 11:01 | XMS REPORT ---
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 Name Role Phone BÁRBARA BHANDARI Unavailable PROBLEMS Type Condition ICD9-CM Code OPM78-SD Code Onset Dates Condition S tatus SNOMED Code Problem Anger R45.4 Active 64181034 Problem Hx of cervical spine surgery Z98.89 A ctive 145372401 Problem Pain in right foot M79.671 Active 4 8700108 Problem Erectile dysfunction, unspecified erectile dysfunction typ e N52.9 Active 479958651 Problem Candidal dermatitis B37.2 Active 68738545 Problem Gastroesophageal reflux disease with esophagitis K 21.0 Active 065567474 Problem Anxiety disorder, unspecified F41.9 Active 287741647 Problem Mixed hyperlipidemia E78.2 Active 348164122 Problem 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 Active 918613316 Problem Unspecified mood [affective] disorder F39 Active 868650411 Problem Other stimulant dependence, 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 Active 474848569 Problem Marijuana abuse F12.10 Active 3734 4009 Problem Drug-induced erectile dysfunction N52.2 Active 222541172 Problem Cannabis dependence, uncomplicated F12.20 Active 52049030 Problem Wheezing R06.2 Active 56887573 Problem Psychophysiological insomnia F51.04 A ctive 222670095 Problem Pure hypercholesterolemia E78.00 Acti ve 883434946 Problem Anxiety F41.9 Active 36529917 Problem Idiopathic peripheral neuropathy G60.9 Active 56053201 Problem Polydipsia R63.1 Active 90033453 Problem Low back pain M54.5 Active 124374 005 Problem Essential hypertension I10 Active 45932204 Problem Pain in right knee M25.561 Active 3 62062311438808 Problem Mood disorder F39 Active 119506 05 Problem Other chronic pain G89.29 Active 8 2125787 Problem Primary osteoarthritis of left hip M16.12 Active 059132877 ALLERGIES No Information ENCOUNTERS Encounter Location Date Diagnosis [facility] [address] [facility] [id number] [address] [place] [address] March, [facility] [address] [facility] [id number] [address] [place] [address] March, Essential hypertension I10 [facility] [address] [facility] [id number] [address] [place] [address] March, [facility] [address] [facility] [id number] [address] [place] [address] Feb, [facility] [address] [facility] [id number] [address] [place] [address] Feb, [facility] [address] [facility] [id number] [address] [place] [address] Feb, [facility] [address] [place] [id number] [place] [address] Feb, Prediabetes R73.03 [facility] [address] [facility] [id number] [address] [place] [address] Jan, [facility] [address] [address] Jan, [facility] [address] [place] [id number] [address] [place] [address] Jan, Polydipsia R63.1 ; Periphera l edema R60.9 ; Pre-diabetes R73.03 and Tongue lesion K14.8 [facility] [address] [facility] [id number] [address] [place] [address] Sep, Other chronic pain G89.29 [facility] [address] [place] [id number] [address] [place] [address] Sep, Acute low back pain, unspeci fied back pain laterality, with sciatica presence unspecified M54.5 [facility] [address] [place] [id number] [address] [place] [address] Sep, Low vitamin D level R79.89 [facility] [address] [place] [id number] [address] [place] [address] Aug, Acute low back pain, unspeci fied back pain laterality, with sciatica presence unspecified M54.5 and Primary osteoarthritis of left hip M16.12 [facility] [address] [id number] [address] [place] [address] Aug, [place] [address] [id number] [address] [place] [address] Jun, [place] [address] [id number] [address] [place] [address] Jun, Other chronic pain G89.29 an d Pain in right knee M25.561 [place] [address] [id number] [address] [place] [address] May, Primary osteoarthritis of le ft hip M16.12 ; Pain in left hip M25.552 ; Other acute postprocedural pain G89.18 and Anxiety F41.9 [place] [id number] [id number] [address] [place] [address] May, [place] [address] [id number] [address] [place] [address] Apr, Pain in right knee M25.561 a nd Mood disorder F39 [place] [address] [id number] [address] [place] [address] Apr, [facility] [address] [id number] [address] [place] [address] [id number] March, [facility] [address] [id number] [address] [place] [id number] March, Encounter for dental exam an d cleaning w/o abnormal findings Z01.20 [facility] [address] [id number] [address] [place] [id number] March, Dental examination Z01.20 [facility] [address] [id number] [address] [place] [address] [id number] 11 May, 2018 Dental examination Z01.20 [facility] [address] [id number] [address] [place] [address] March, [facility] [address] [id number] [address] [place] [address] March, [facility] [address] [id number] [address] [place] [address] Feb, [facility] [address] [id number] [address] [place] [address] Feb, Primary osteoarthritis of le ft hip M16.12 [facility] [address] [id number] [address] [place] [address] Feb, Other chronic pain G89.29 an d Pain in left hip M25.552 [facility] [address] [id number] [address] [place] [address] Feb, Acute pain of left hip M25.5 52 [facility] [address] [id number] [address] [place] [address] Feb, Mood disorder F39 and Pain i n right knee M25.561 [facility] [address] [id number] [address] [place] [address] Jan, Other chronic pain G89.29 [facility] [address] [id number] [address] [place] [address] Jan, Mood disorder F39 [facility] [address] [id number] [address] [place] [address] Jan, Pain in right knee M25.561 [facility] [address] [id number] [address] [place] [address] Jan, Pain in left hip M25.552 and Other chronic pain G89.29 [facility] [address] [id number] [address] [place] [address] Jan, Acute pain of left hip M25.5 52 [facility] [address] [address] Jan, Acute pain of left hip M25.5 52 [place] [address] [address] Jan, Mood disorder F39 and Acute pain of left hip M25.552 [place] [address] [address] Nov, Mood disorder F39 [place] [address] [address] Oct, Essential hypertension I10 ; Mixed hyperlipidemia E78.2 and Low back pain M54.5 [facility] [address] [id number] May, [place] [address] [address] Apr, Essential hypertension I10 ; Anger R45.4 ; Mixed hyperlipidemia E78.2 ; Drug-induced erectile dysfunction N52.2 ; Gastroesophageal reflux disease with esophagitis K21.0 ; Pure hypercholesterolemia E78.00 ; Pain in right knee M25.561 ; Psychophysiological insomnia F51.04 and Wheezing R06.2 [place] [address] [address] March, Hx of cervical spine surgery Z98.89 [place] [address] [address] March, [place] [address] [address] Feb, Anxiety associated with depr ession F41.8 [place] [address] [address] Jan, Anxiety associated with depr ession F41.8 [place] [address] [address] Dec, [place] [address] [address] Dec, [facility] [address] [place] [id number] [address] [place] [address] Dec, Essential hypertension I10 ; Erectile dysfunction, unspecified erectile dysfunction type N52.9 and Hyperlipemia E78.5 [facility] [address] [place] [id number] [address] [place] [address] Nov, Essential hypertension I10 ; Hx of cervical spine surgery Z98.89 ; Erectile dysfunction, unspecified erectile dysfunction type N52.9 ; Idiopathic peripheral neuropathy G60.9 ; Anger R45.4 ; Anxiety associated with depression F41.8 ; Hyperlipemia E78.5 ; Wheezing R06.2 and Has daytime drowsiness R40.0 [facility] [address] [address] Nov, [place] [address] [address] Nov, [facility] [address] [place] [id number] [address] [place] [address] Sep, [facility] [address] [address] Sep, Acute midline low back pain without sciatica M54.5 [facility] [address] [place] [id number] [place] [address] Sep, Acute bilateral low back ekta n without sciatica M54.5 [facility] [address] [place] [id number] [address] [place] [address] Aug, [facility] [address] [place] [id number] [address] [place] [address] Jun, Wheezing R06.2 ; Candidal de rmatitis B37.2 ; Essential hypertension I10 ; Erectile dysfunction, unspecified erectile dysfunction type N52.9 ; Idiopathic peripheral neuropathy G60.9 ; Mixed hyperlipidemia E78.2 and Other stimulant dependence, 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 [facility] [address] [address] March, Essential hypertension I10 ; Hx of cervical spine surgery Z98.89 ; Idiopathic peripheral neuropathy G60.9 ; Mixed hyperlipidemia E78.2 ; Anger R45.4 ; Drug-induced erectile dysfunction N52.2 and Gastroesophageal reflux disease with esophagitis K21.0 [place] [address] [address] Feb, [place] [address] [address] Dec, Low back pain M54.5 [place] [address] [address] Dec, [place] [address] [address] Dec, Unspecified mood [affective] disorder F39 ; Anxiety disorder, unspecified F41.9 ; Other stimulant dependence, 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 and Cannabis dependence, uncomplicated F12.20 [place] [address] [address] Dec, Essential hypertension I10 ; Hyperlipemia E78.5 ; Erectile dysfunction, unspecified erectile dysfunction type N52.9 ; Anger R45.4 ; Mixed hyperlipidemia E78.2 ; Anxiety associated with depression F41.8 ; Elevated serum creatinine R79.89 ; 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 and Marijuana abuse F12.10 [place] [address] [address] Oct, Essential hypertension I10 ; Idiopathic peripheral neuropathy G60.9 ; Low back pain M54.5 ; Hx of cervical spine surgery Z98.89 ; Erectile dysfunction, unspecified erectile dysfunction type N52.9 ; Anger R45.4 ; Mixed hyperlipidemia E78.2 and Anxiety associated with depression F41.8 [place] [address] [address] Oct, Unspecified mood [affective] disorder F39 and Anxiety disorder, unspecified F41.9 [facility] [address] [id number] [address] [place] [address] Oct, Hyperlipemia E78.5 [facility] [address] [facility] [id number] [address] [place] [address] Oct, Essential hypertension I10 [facility] [address] [place] [id number] [address] [place] [address] Oct, [facility] [address] [facility] [id number] [address] [place] [address] Oct, Essential hypertension I10 ; Idiopathic peripheral neuropathy G60.9 ; Low back pain M54.5 ; Hx of cervical spine surgery Z98.89 ; Pain in right hand M79.641 ; Pain of left hand M79.642 ; Pain in left foot M79.672 ; Pain in right foot M79.671 ; Erectile dysfunction, unspecified erectile dysfunction type N52.9 and Anger R45.4 [facility] [address] [facility] [id number] [address] [place] [address] Sep, [facility] [address] [facility] [id number] [address] [place] [address] Jul, [facility] [address] [facility] [id number] [address] [place] [address] Jun, [facility] [address] [facility] [id number] [address] [place] [address] May, [facility] [address] [facility] [id number] [address] [place] [address] Apr, [facility] [address] [facility] [id number] [address] [place] [address] March, [facility] [address] [facility] [id number] [address] [place] [address] 14 Feb, 2015 [facility] [address] [facility] [id number] [address] [place] [address] Feb, [facility] [address] [facility] [id number] [address] [place] [address] Jan, [facility] [address] [id number] [address] [place] [address], [place] [address] Jan, [facility] [address] [id number] [address] [place] [address], [place] [address] Nov, [facility] [address] [id number] [address] [place] [address], [place] [address] Nov, [facility] [address] [id number] [address] [place] [address], [place] [address] Nov, [facility] [address] [id number] [address] [place] [address], [place] [address] Nov, [facility] [address] [id number] [address] [place] [address], [place] [address] Nov, [facility] [address] [id number] [address] [place] [address], [place] [address] Nov, [facility] [address] [id number] [address] [place] [address], [place] [address] Oct, [facility] [address] [id number] [address] [place] [address], [place] [address] Oct, [facility] [address] [id number] [address] [place] [address], [place] [address] Oct, [facility] [address] [id number] [address] [place] [address], [place] [address] Oct, [facility] [address] [id number] [address] [place] [address], [place] [address] Sep, [facility] [address] [id number] [address] [place] [address], [place] [address] Sep, [facility] [address] [id number] [address] [place] [address], [place] [address] Sep, [facility] [address] [id number] [address] [place] [address], [place] [address] Sep, [facility] [address] [id number] [address] [place] [address], [place] [address] 10 Sep, 2014 [facility] [address] [id number] [address] [place] [address], [place] [address] 16 Aug, 2014 [facility] [address] [id number] [address] [place] [address], [place] [address] 16 Aug, 2014 [facility] [address] [id number] [address] [place] [address], [place] [address] 15 Aug, 2014 [facility] [address] [id number] [address] [place] [address], [place] [address] 15 Aug, 2014 [facility] [address] [id number] [address] [place] [address], [place] [address] 15 Aug, 2014 [facility] [address] [id number] [address] [place] [address], [place] [address] 15 Aug, 2014 [facility] [address] [id number] [address] [place] [address], [place] [address] 13 Aug, 2014 [facility] [address] [id number] [address] [place] [address], [place] [address] 07 Aug, 2014 [facility] [address] [id number] [address] [place] [address], [place] [address] 07 Aug, 2014 [facility] [address] [id number] [address] [place] [address], [place] [address] 06 Aug, 2014 [facility] [address] [id number] [address] [place] [address], [place] [address] 06 Aug, 2014 [facility] [address] [id number] [address] [place] [address], [place] [address] 19 Jul, 2013 [facility] [address] [id number] [address] [place] [address], [place] [address] 19 Jul, 2013 [facility] [address] [id number] [address] [place] [address], [place] [address] 18 Jul, 2013 [facility] [address] [id number] [address] [place] [address], [place] [address] Jul, [facility] [address] [id number] [address] [place] [address], [place] [address] Jun, [facility] [address] [id number] [address] [place] [address], [place] [address] Jun, [facility] [address] [id number] [address] [place] [address], [place] [address] Jun, [facility] [address] [id number] [address] [place] [address], [place] [address] Jun, [facility] [address] [id number] [address] [place] [address], [place] [address] Jun, [facility] [address] [id number] [address] [place] [address], [place] [address] Jun, [facility] [address] [id number] [address] [place] [address], [place] [address] May, [facility] [address] [id number] [address] [place] [address], [place] [address] May, [facility] [address] [id number] [address] [place] [address], [place] [address] May, [facility] [address] [id number] [address] [place] [address], [place] [address] May, [facility] [address] [id number] [address] [place] [address], [place] [id number] May, [facility] [address] [id number] [address] [place] [address], [place] [address] May, [facility] [address] [id number] [address] [place] [address], [place] [address] May, [facility] [address] [id number] [address] [place] [address], [place] [address] May, [facility] [address] [id number] [address] [place] [address], [place] [address] May, [facility] [address] [id number] [address] [place] [address], [place] [address] May, [facility] [address] [id number] [address] [place] [address], [place] [address] May, [facility] [address] [id number] [address] [place] [address], [place] [address] May, [facility] [address] [id number] [address] [place] [address], [place] [address] Apr, [facility] [address] [id number] [address] [place] [address], [place] [address] Apr, [facility] [address] [id number] [address] [place] [address], [place] [address] March, [facility] [address] [id number] [address] [place] [address], [place] [address] March, [facility] [address] [id number] [address] [place] [address], [place] [address] March, [facility] [address] [id number] [address] [place] [address], [place] [address] March, [facility] [address] [id number] [address] [place] [address], [place] [address] Feb, [facility] [address] [id number] [address] [place] [address], [place] [address] Feb, [facility] [address] [id number] [address] [place] [address], [place] [address] Jan, [facility] [address] [id number] [address] [place] [address], [place] [address] Jan, [facility] [address] [id number] [address] [place] [address], [place] [address] Jan, [facility] [address] [id number] [address] [place] [address], [place] [address] Jan, [facility] [address] [id number] [address] [place] [address], [place] [address] Dec, [facility] [address] [id number] [address] [place] [address], [place] [address] Dec, [facility] [address] [id number] [address] [place] [address], [place] [address] Nov, [facility] [address] [id number] [address] [place] [address], [place] [address] Nov, [facility] [address] [id number] [address] [place] [address], [place] [address] Nov, [facility] [address] [id number] [address] [place] [address], [place] [address] Nov, [facility] [address] [id number] [address] [place] [address], [place] [address] Oct, [facility] [address] [id number] [address] [place] [address], [place] [address] Oct, [facility] [address] [id number] [address] [place] [address], [place] [address] Sep, [facility] [address] [id number] [address] [place] [address], [place] [address] Sep, [facility] [address] [id number] [address] [place] [address], [place] [address] Jul, [facility] [address] [id number] [address] [place] [address], [place] [address] Jul, [facility] [address] [id number] [address] [place] [address], [place] [address] Jul, [facility] [address] [id number] [address] [place] [address], [place] [address] Jun, [facility] [address] [id number] [address] [place] [address], [place] [address] Jun, [facility] [address] [id number] [address] [place] [address], [place] [address] May, [facility] [address] [id number] [address] [place] [phone] May, [facility] [address] [id number] [address] [place] [address], [place] [address] May, [facility] [address] [id number] [address] [place] [phone] March, [facility] [address] [id number] [address] [place] [address], [place] [address] Jan, [facility] [address] [id number] [address] [place] [phone] Jan, [facility] [address] [id number] [address] [place] [address], [place] [address] Jan, [facility] [address] [id number] [address] [place] [phone] Dec, [facility] [address] [id number] [address] [place] [id number] May, [facility] [address] [id number] [address] [place] [phone] March, [facility] [address] [id number] [address] [place] [phone] Jan, [facility] [address] [id number] [address] [place] [id number] Aug, [facility] [address] [id number] [address] [place] [phone] Aug, [facility] [address] [id number] [address] [place] [phone] Aug, [facility] [address] [id number] [address] [place] [phone] Jun, [facility] [address] [id number] [address] [place] [id number] 14 May, 2011 [facility] [address] [id number] [address] [place] [id number] Oct, IMMUNIZATIONS No Known Immunizations SOCIAL HISTORY [...]
--- OUTSIDE RECORDS SUMMARY | 2020-02-05 11:01 | XMS REPORT ---
Author Author Jelani Arambula Doctor Organization [facility] Address Unknown Phone Unavailable Care Team Providers Care Service Consultant Name Role Phone Migration, Doctor Unavailable Unavailable PROBLEMS Type Condition ICD9-CM Code [id number] Code Onset Dates Condition S tatus SNOMED Code Problem Anger R45.4 Active 95924627 Problem Hx of cervical spine surgery Z98.89 A ctive 515930976 Problem Pain in right foot M79.671 Active 4 3263670 Problem Erectile dysfunction, unspecified erectile dysfunction typ e N52.9 Active 471592258 Problem Candidal dermatitis B37.2 Active 31700095 Problem Gastroesophageal reflux disease with esophagitis K 21.0 Active 700492545 Problem Anxiety disorder, unspecified F41.9 Active 458869299 Problem Mixed hyperlipidemia E78.2 Active 033558549 Problem 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 Active 920024629 Problem Unspecified mood [affective] disorder F39 Active 431101911 Problem Other stimulant dependence, 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 Active 091693713 Problem Marijuana abuse F12.10 Active 3734 4009 Problem Drug-induced erectile dysfunction N52.2 Active 054304293 Problem Cannabis dependence, uncomplicated F12.20 Active 74340004 Problem Wheezing R06.2 Active 21270967 Problem Psychophysiological insomnia F51.04 A ctive 443985735 Problem Pure hypercholesterolemia E78.00 Acti ve 393764885 Problem Anxiety F41.9 Active 05161947 Problem Idiopathic peripheral neuropathy G60.9 Active 60950505 Problem Polydipsia R63.1 Active 27205495 Problem Low back pain M54.5 Active 947795 005 Problem Essential hypertension I10 Active 32349351 Problem Pain in right knee M25.561 Active 3 77105896635954 Problem Mood disorder F39 Active 524132 05 Problem Other chronic pain G89.29 Active 8 0610364 Problem Primary osteoarthritis of left hip M16.12 Active 468897728 ALLERGIES No Information ENCOUNTERS Encounter Location Date Diagnosis [facility] [address] [facility] [id number] [address] [place] [address] March, [facility] [address] [id number] [address] [place] [address] Feb, [facility] [address] [facility] [id number] [address] [place] [address] Feb, [facility] [address] [facility] [id number] [address] [place] [address] Feb, [facility] [address] [facility] [id number] [address] [place] [address] Feb, Prediabetes R73.03 [facility] [address] [facility] [id number] [address] [place] [address] Jan, [facility] [address] [facility] [id number] [address] [place] [address] Jan, [facility] [address] [facility] [id number] [address] [place] [address] Jan, Polydipsia R63.1 ; Periphera l edema R60.9 ; Pre-diabetes R73.03 and Tongue lesion K14.8 [facility] [address] [facility] [id number] [address] [place] [address] Sep, Other chronic pain G89.29 [place] [address] [facility] [id number] [address] [place] [address] Sep, Acute low back pain, unspeci fied back pain laterality, with sciatica presence unspecified M54.5 [facility] [address] [facility] [id number] [address] [place] [address] Sep, Low vitamin D level R79.89 [facility] [address] [facility] [id number] [address] [place] [address] Aug, Acute low back pain, unspeci fied back pain laterality, with sciatica presence unspecified M54.5 and Primary osteoarthritis of left hip M16.12 [facility] [address] [facility] [id number] [address] [place] [address] Aug, [facility] [address] [id number] [address] [place] [address] Jun, [facility] [address] [id number] [address] [place] [address] Jun, Other chronic pain G89.29 an d Pain in right knee M25.561 [facility] [address] [id number] [address] [place] [address] May, Primary osteoarthritis of le ft hip M16.12 ; Pain in left hip M25.552 ; Other acute postprocedural pain G89.18 and Anxiety F41.9 [facility] [address] [id number] [address] [place] [address] May, [facility] [address] [id number] [address] [place] [address] Apr, Pain in right knee M25.561 a nd Mood disorder F39 [facility] [address] [id number] [address] [place] [address] Apr, [facility] [address] [id number] [address] [place] [id number] March, [facility] [address] [id number] [place] [id number] March, Encounter for dental exam an d cleaning w/o abnormal findings Z01.20 [facility] [address] [id number] [address] [place] [id number] March, Dental examination Z01.20 [facility] [address] [id number] [address] [place] [id number] March, Dental examination Z01.20 [facility] [address] [id number] [address] [place] [address] March, [facility] [address] [id number] [address] [place] [address] March, [facility] [address] [id number] [address] [place] [address] Feb, [facility] [address] [id number] [address] [place] [address] Feb, Primary osteoarthritis of le ft hip M16.12 [facility] [address] [id number] [address] [place] [address] Feb, Other chronic pain G89.29 an d Pain in left hip M25.552 [facility] [address] [id number] [address] [place] [address] Feb, Acute pain of left hip M25.5 52 [facility] [address] [id number] [address] [place] [address] Feb, Mood disorder F39 and Pain i n right knee M25.561 [facility] [address] [id number] [address] [place] [address] Jan, Other chronic pain G89.29 [facility] [address] [id number] [address] [place] [address] Jan, Mood disorder F39 [facility] [address] [id number] [address] [place] [address] Jan, Pain in right knee M25.561 [facility] [address] [id number] [address] [place] [address] Jan, Pain in left hip M25.552 and Other chronic pain G89.29 [facility] [address] [id number] [address] [place] [address] Jan, Acute pain of left hip M25.5 52 [facility] [address] [id number] [address] [place] [address] Jan, Acute pain of left hip M25.5 52 [facility] [address] [id number] [address] [place] [address] 08 Jan, 2018 Mood disorder F39 and Acute pain of left hip M25.552 [facility] [address] [id number] [address] [place] [address] Nov, Mood disorder F39 [facility] [address] [place] [id number] [address] [place] [address] Oct, Essential hypertension I10 ; Mixed hyperlipidemia E78.2 and Low back pain M54.5 [facility] [address] [place] [id number] [place] [id number] May, [facility] [address] [address] Apr, Essential hypertension I10 ; Anger R45.4 ; Mixed hyperlipidemia E78.2 ; Drug-induced erectile dysfunction N52.2 ; Gastroesophageal reflux disease with esophagitis K21.0 ; Pure hypercholesterolemia E78.00 ; Pain in right knee M25.561 ; Psychophysiological insomnia F51.04 and Wheezing R06.2 [place] [address] [address] March, Hx of cervical spine surgery Z98.89 [place] [address] [address] March, [place] [address] [address] Feb, Anxiety associated with depr ession F41.8 [place] [address] [place] [id number] [address] [place] [address] Jan, Anxiety associated with depr ession F41.8 [facility] [address] [place] [id number] [address] [place] [address] Dec, [facility] [address] [place] [id number] [address] [place] [address] Dec, [place] [address] [place] [id number] [address] [place] [address] Dec, Essential hypertension I10 ; Erectile dysfunction, unspecified erectile dysfunction type N52.9 and Hyperlipemia E78.5 [facility] [address] [place] [id number] [address] [place] [address] Nov, Essential hypertension I10 ; Hx of cervical spine surgery Z98.89 ; Erectile dysfunction, unspecified erectile dysfunction type N52.9 ; Idiopathic peripheral neuropathy G60.9 ; Anger R45.4 ; Anxiety associated with depression F41.8 ; Hyperlipemia E78.5 ; Wheezing R06.2 and Has daytime drowsiness R40.0 [place] [id number] [place] [address] Nov, [facility] [address] [place] [id number] [place] [address] Nov, [place] [address] [address] Sep, [place] [address] [address] Sep, Acute midline low back pain without sciatica M54.5 [place] [address] [address] Sep, Acute bilateral low back ekta n without sciatica M54.5 [place] [address] [address] Aug, [facility] [address] [address] Jun, Wheezing R06.2 ; Candidal de rmatitis B37.2 ; Essential hypertension I10 ; Erectile dysfunction, unspecified erectile dysfunction type N52.9 ; Idiopathic peripheral neuropathy G60.9 ; Mixed hyperlipidemia E78.2 and Other stimulant dependence, 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 [facility] [address] [place] [id number] [address] [place] [address] March, Essential hypertension I10 ; Hx of cervical spine surgery Z98.89 ; Idiopathic peripheral neuropathy G60.9 ; Mixed hyperlipidemia E78.2 ; Anger R45.4 ; Drug-induced erectile dysfunction N52.2 and Gastroesophageal reflux disease with esophagitis K21.0 [place] [address] [address] Feb, [facility] [id number] [place] [address] Dec, Low back pain M54.5 [facility] [address] [place] [id number] [address] [place] [address] Dec, [place] [address] [address] Dec, Unspecified mood [affective] disorder F39 ; Anxiety disorder, unspecified F41.9 ; Other stimulant dependence, 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 and Cannabis dependence, uncomplicated F12.20 [place] [address] [address] Dec, Essential hypertension I10 ; Hyperlipemia E78.5 ; Erectile dysfunction, unspecified erectile dysfunction type N52.9 ; Anger R45.4 ; Mixed hyperlipidemia E78.2 ; Anxiety associated with depression F41.8 ; Elevated serum creatinine R79.89 ; 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 and Marijuana abuse F12.10 [place] [address] [place] [id number] [address] [place] [address] Oct, Essential hypertension I10 ; Idiopathic peripheral neuropathy G60.9 ; Low back pain M54.5 ; Hx of cervical spine surgery Z98.89 ; Erectile dysfunction, unspecified erectile dysfunction type N52.9 ; Anger R45.4 ; Mixed hyperlipidemia E78.2 and Anxiety associated with depression F41.8 [place] [address] [place] [id number] [address] [place] [address] Oct, Unspecified mood [affective] disorder F39 and Anxiety disorder, unspecified F41.9 [place] [address] [place] [id number] [address] [place] [address] Oct, Hyperlipemia E78.5 [place] [address] [place] [id number] [address] [place] [address] 15 Oct, 2015 Essential hypertension I10 [place] [address] [address] Oct, [facility] [address] [id number] [address] [place] [address] Oct, Essential hypertension I10 ; Idiopathic peripheral neuropathy G60.9 ; Low back pain M54.5 ; Hx of cervical spine surgery Z98.89 ; Pain in right hand M79.641 ; Pain of left hand M79.642 ; Pain in left foot M79.672 ; Pain in right foot M79.671 ; Erectile dysfunction, unspecified erectile dysfunction type N52.9 and Anger R45.4 [facility] [address] [id number] [address] [place] [address] Sep, [facility] [address] [id number] [address] [place] [address] Jul, [facility] [address] [id number] [address] [place] [address] Jun, [facility] [address] [id number] [address] [place] [address] May, [facility] [address] [id number] [address] [place] [address] Apr, [facility] [address] [id number] [address] [place] [address] March, [facility] [address] [id number] [address] [place] [address] Feb, [facility] [address] [id number] [address] [place] [address] Feb, [facility] [address] [id number] [address] [place] [address] Jan, [facility] [address] [id number] [address] [place] [address] Jan, [facility] [address] [id number] [address] [place] [address] Nov, [facility] [address] [id number] [address] [place] [address] [place] [address] Nov, [facility] [address] [id number] [address] [place] [address], [place] [address] Nov, [facility] [address] [id number] [address] [place] [address], [place] [address] Nov, [facility] [address] [id number] [address] [place] [address], [place] [address] Nov, [facility] [address] [id number] [address] [place] [address], [place] [address] Nov, [facility] [address] [id number] [address] [place] [address], [place] [address] Oct, [facility] [address] [id number] [address] [place] [address], [place] [address] Oct, [facility] [address] [id number] [address] [place] [address], [place] [address] Oct, [facility] [address] [id number] [address] [place] [address], [place] [address] Oct, [facility] [address] [id number] [address] [place] [address], [place] [address] Sep, [facility] [address] [id number] [address] [place] [address], [place] [address] Sep, [facility] [address] [id number] [address] [place] [address], [place] [address] Sep, [facility] [address] [id number] [address] [place] [address], [place] [address] Sep, [facility] [address] [id number] [address] [place] [address], [place] [address] Sep, [facility] [address] [id number] [address] [place] [address], [place] [address] Aug, [facility] [address] [id number] [address] [place] [address], [place] [address] Aug, [facility] [address] [id number] [address] [place] [address], [place] [address] 15 Aug, 2014 [facility] [address] [id number] [address] [place] [address], [place] [address] 15 Aug, 2014 [facility] [address] [id number] [address] [place] [address], [place] [address] 15 Aug, 2014 [facility] [address] [id number] [address] [place] [address], [place] [address] 15 Aug, 2014 [facility] [address] [id number] [address] [place] [address], [place] [address] 13 Aug, 2014 [facility] [address] [id number] [address] [place] [address], [place] [address] 07 Aug, 2014 [facility] [address] [id number] [address] [place] [address], [place] [address] 07 Aug, 2014 [facility] [address] [id number] [address] [place] [address], [place] [address] 06 Aug, 2014 [facility] [address] [id number] [address] [place] [address], [place] [address] 06 Aug, 2014 [facility] [address] [id number] [address] [place] [address], [place] [address] 19 Jul, 2014 [facility] [address] [id number] [address] [place] [address], [place] [address] 19 Jul, 2014 [facility] [address] [id number] [address] [place] [address], [place] [address] 18 Jul, 2013 [facility] [address] [id number] [address] [place] [address], [place] [address] 18 Jul, 2014 [facility] [address] [id number] [address] [place] [address], [place] [address] Jun, [facility] [address] [id number] [address] [place] [address], [place] [address] Jun, [facility] [address] [id number] [address] [place] [address], [place] [address] Jun, [facility] [address] [id number] [facility] [place] [address] Jun, [facility] [address] [id number] [address] [place] [address], [place] [address] Jun, [facility] [address] [id number] [address] [place] [address], [place] [address] Jun, [facility] [address] [id number] [address] [place] [address], [place] [address] May, [facility] [address] [id number] [address] [place] [address], [place] [address] May, [facility] [address] [id number] [address] [place] [address], [place] [address] May, [facility] [address] [id number] [address] [place] [address], [place] [address] May, [facility] [address] [id number] [address] [place] [address], [place] [id number] May, [facility] [address] [id number] [address] [place] [address], [place] [address] May, [facility] [address] [id number] [address] [place] [address], [place] [address] May, [facility] [address] [id number] [address] [place] [address], [place] [address] May, [facility] [address] [id number] [address] [place] [address], [place] [address] May, [facility] [address] [id number] [address] [place] [address], [place] [address] May, [facility] [address] [id number] [address] [place] [address], [place] [address] May, [facility] [address] [id number] [address] [place] [address], [place] [address] May, [facility] [address] [id number] [address] [place] [address], [place] [address] Apr, [facility] [address] [id number] [address] [place] [address], [place] [address] Apr, [facility] [address] [id number] [address] [place] [address], [place] [address] March, [facility] [address] [id number] [address] [place] [address], [place] [address] March, [facility] [address] [id number] [address] [place] [address], [place] [address] March, [facility] [address] [id number] [address] [place] [address], [place] [address] March, [facility] [address] [id number] [address] [place] [address], [place] [address] Feb, [facility] [address] [id number] [address] [place] [address], [place] [address] Feb, [facility] [address] [id number] [address] [place] [address], [place] [address] Jan, [facility] [address] [id number] [address] [place] [address], [place] [address] Jan, [facility] [address] [id number] [address] [place] [address], [place] [address] Jan, [facility] [address] [id number] [address] [place] [address], [place] [address] Jan, [facility] [address] [id number] [address] [place] [address], [place] [address] Dec, [facility] [address] [id number] [address] [place] [address], [place] [address] Dec, [facility] [address] [id number] [address] [place] [address], [place] [address] Nov, [facility] [address] [id number] [address] [place] [address], [place] [address] Nov, [facility] [address] [id number] [address] [place] [address], [place] [address] Nov, [facility] [address] [id number] [address] [place] [address], [place] [address] Nov, [facility] [address] [id number] [address] [place] [address], [place] [address] Oct, [facility] [address] [id number] [address] [place] [address], [place] [address] Oct, [facility] [address] [id number] [address] [place] [address], [place] [address] Sep, [facility] [address] [id number] [address] [place] [address], [place] [address] Sep, [facility] [address] [id number] [address] [place] [address], [place] [address] Jul, [facility] [address] [id number] [address] [place] [address], [place] [address] Jul, [facility] [address] [id number] [address] [place] [address], [place] [address] Jul, [facility] [address] [id number] [address] [place] [address], [place] [address] Jun, [facility] [address] [id number] [address] [place] [address], [place] [address] Jun, [facility] [address] [id number] [address] [place] [address], [place] [address] May, [facility] [address] [id number] [address] [place] [address], [place] [address] May, [facility] [address] [id number] [address] [place] [address], [place] [address] May, [facility] [address] [id number] [address] [place] [address], [place] [address] March, [facility] [address] [id number] [address] [place] [phone] Jan, [facility] [address] [id number] [address] [place] [phone] Jan, [facility] [address] [id number] [address] [place] [phone] Jan, [facility] [address] [id number] [address] [place] [phone] Dec, [facility] [address] [id number] [address] [place] [phone] May, [facility] [address] [id number] [address] [place] [phone] March, [facility] [address] [id number] [address] [place] [id number] Jan, [facility] [address] [id number] [address] [place] [id number] Aug, [facility] [address] [id number] [address] [place] [id number] Aug, [facility] [address] [id number] [address] [place] [phone] Aug, [facility] [address] [id number] [address] [place] [id number] Jun, [facility] [address] [id number] [address] [place] [id number] May, [facility] [address] [id number] [address] [place] [id number] Oct, IMMUNIZATIONS No Known Immunizations SOCIAL HISTORY Never Assessed REASON FOR VISIT [facility]MR-[facility] [place] PLAN OF CARE VITAL SIGNS MEDICATIONS Unknown [...]
--- OUTSIDE RECORDS SUMMARY | 2020-02-05 11:01 | XMS REPORT ---
Author Author Jelani BHANDARI Organization 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 Name Role Phone BÁRBARA BHANDARI Unavailable PROBLEMS Type Condition ICD9-CM Code VBM80-YK Code Onset Dates Condition S tatus SNOMED Code Problem Anger R45.4 Active 88077466 Problem Hx of cervical spine surgery Z98.89 A ctive 010408746 Problem Pain in right foot M79.671 Active 4 7069796 Problem Erectile dysfunction, unspecified erectile dysfunction typ e N52.9 Active 516804746 Problem Candidal dermatitis B37.2 Active 48198721 Problem Gastroesophageal reflux disease with esophagitis K 21.0 Active 645977944 Problem Anxiety disorder, unspecified F41.9 Active 163532424 Problem Mixed hyperlipidemia E78.2 Active 170698968 Problem 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 Active 147994172 Problem Unspecified mood [affective] disorder F39 Active 226280000 Problem Other stimulant dependence, 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 Active 599205947 Problem Marijuana abuse F12.10 Active 3734 4009 Problem Drug-induced erectile dysfunction N52.2 Active 988142737 Problem Cannabis dependence, uncomplicated F12.20 Active 47060763 Problem Wheezing R06.2 Active 94038826 Problem Psychophysiological insomnia F51.04 A ctive 892847351 Problem Pure hypercholesterolemia E78.00 Acti ve 858732527 Problem Anxiety F41.9 Active 07237944 Problem Idiopathic peripheral neuropathy G60.9 Active 14196590 Problem Polydipsia R63.1 Active 43553917 Problem Low back pain M54.5 Active 849045 005 Problem Essential hypertension I10 Active 21137566 Problem Pain in right knee M25.561 Active 3 [id number] Problem Mood disorder F39 Active 835086 05 Problem Other chronic pain G89.29 Active 8 9500039 Problem Primary osteoarthritis of left hip M16.12 Active 136239348 ALLERGIES No Information ENCOUNTERS Encounter Location Date Diagnosis [facility] [address] [id number] [address] [place] [id number] March, [facility] [address] [id number] [address] [place] [address] March, Essential hypertension I10 [facility] [address] [id number] [address] [place] [address] March, [facility] [address] [id number] [address] [place] [address] Feb, [facility] [address] [id number] [address] [place] [address] Feb, [facility] [address] [id number] [address] [place] [address] Feb, [facility] [address] [place] [id number] [place] [address] Feb, Prediabetes R73.03 [facility] [address] [id number] [address] [place] [address] Jan, [facility] [address] [address] Jan, [facility] [address] [place] [id number] [address] [place] [address] Jan, Polydipsia R63.1 ; Periphera l edema R60.9 ; Pre-diabetes R73.03 and Tongue lesion K14.8 [facility] [address] [id number] [address] [place] [address] Sep, Other chronic pain G89.29 [facility] [address] [place] [id number] [address] [place] [address] Sep, Acute low back pain, unspeci fied back pain laterality, with sciatica presence unspecified M54.5 [facility] [address] [place] [id number] [address] [place] [address] Sep, Low vitamin D level R79.89 [facility] [address] [id number] [address] [place] [address] Aug, Acute low back pain, unspeci fied back pain laterality, with sciatica presence unspecified M54.5 and Primary osteoarthritis of left hip M16.12 [facility] [address] [id number] [address] [place] [address] Aug, [place] [address] [id number] [address] [place] [address] Jun, [place] [address] [id number] [address] [place] [address] Jun, Other chronic pain G89.29 an d Pain in right knee M25.561 [facility] [address] [id number] [address] [place] [address] May, Primary osteoarthritis of le ft hip M16.12 ; Pain in left hip M25.552 ; Other acute postprocedural pain G89.18 and Anxiety F41.9 [place] [address] [id number] [address] [place] [address] May, [place] [address] [id number] [address] [place] [address] Apr, Pain in right knee M25.561 a nd Mood disorder F39 [place] [address] [id number] [address] [place] [address] Apr, [facility] [address] [id number] [address] [place] [id number] March, [facility] [address] [id number] [address] [place] [phone] March, Encounter for dental exam an d cleaning w/o abnormal findings Z01.20 [facility] [address] [id number] [address] [place] [phone] March, Dental examination Z01.20 [facility] [address] [id number] [address] [place] [address] [id number] 11 May, 2018 Dental examination Z01.20 [facility] [address] [id number] [address] [place] [address] March, [facility] [address] [id number] [address] [place] [address] March, [facility] [address] [id number] [address] [place] [address] Feb, [facility] [address] [id number] [address] [place] [address] Feb, Primary osteoarthritis of le ft hip M16.12 [facility] [address] [id number] [address] [place] [address] Feb, Other chronic pain G89.29 an d Pain in left hip M25.552 [facility] [address] [id number] [address] [place] [address] Feb, Acute pain of left hip M25.5 52 [facility] [address] [id number] [address] [place] [address] Feb, Mood disorder F39 and Pain i n right knee M25.561 [facility] [address] [id number] [address] [place] [address] Jan, Other chronic pain G89.29 [facility] [address] [id number] [address] [place] [address] Jan, Mood disorder F39 [facility] [address] [id number] [address] [place] [address] Jan, Pain in right knee M25.561 [facility] [address] [id number] [address] [place] [address] Jan, Pain in left hip M25.552 and Other chronic pain G89.29 [facility] [address] [id number] [address] [place] [address] Jan, Acute pain of left hip M25.5 52 [facility] [address] [address] Jan, Acute pain of left hip M25.5 52 [place] [address] [address] Jan, Mood disorder F39 and Acute pain of left hip M25.552 [place] [address] [address] Nov, Mood disorder F39 [place] [address] [address] Oct, Essential hypertension I10 ; Mixed hyperlipidemia E78.2 and Low back pain M54.5 [facility] [address] [id number] May, [place] [address] [address] Apr, Essential hypertension I10 ; Anger R45.4 ; Mixed hyperlipidemia E78.2 ; Drug-induced erectile dysfunction N52.2 ; Gastroesophageal reflux disease with esophagitis K21.0 ; Pure hypercholesterolemia E78.00 ; Pain in right knee M25.561 ; Psychophysiological insomnia F51.04 and Wheezing R06.2 [place] [address] [address] March, Hx of cervical spine surgery Z98.89 [place] [address] [address] March, [place] [address] [address] Feb, Anxiety associated with depr ession F41.8 [place] [address] [address] Jan, Anxiety associated with depr ession F41.8 [place] [address] [address] Dec, [place] [address] [address] Dec, [facility] [address] [place] [id number] [address] [place] [address] Dec, Essential hypertension I10 ; Erectile dysfunction, unspecified erectile dysfunction type N52.9 and Hyperlipemia E78.5 [facility] [address] [place] [id number] [address] [place] [address] Nov, Essential hypertension I10 ; Hx of cervical spine surgery Z98.89 ; Erectile dysfunction, unspecified erectile dysfunction type N52.9 ; Idiopathic peripheral neuropathy G60.9 ; Anger R45.4 ; Anxiety associated with depression F41.8 ; Hyperlipemia E78.5 ; Wheezing R06.2 and Has daytime drowsiness R40.0 [facility] [address] [address] Nov, [place] [address] [address] Nov, [facility] [address] [place] [id number] [address] [place] [address] Sep, [facility] [address] [address] Sep, Acute midline low back pain without sciatica M54.5 [facility] [address] [place] [id number] [place] [address] Sep, Acute bilateral low back ekta n without sciatica M54.5 [facility] [address] [place] [id number] [address] [place] [phone] Aug, [facility] [address] [id number] [address] [place] [address] Jun, Wheezing R06.2 ; Candidal de rmatitis B37.2 ; Essential hypertension I10 ; Erectile dysfunction, unspecified erectile dysfunction type N52.9 ; Idiopathic peripheral neuropathy G60.9 ; Mixed hyperlipidemia E78.2 and Other stimulant dependence, 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 [facility] [address] [address] March, Essential hypertension I10 ; Hx of cervical spine surgery Z98.89 ; Idiopathic peripheral neuropathy G60.9 ; Mixed hyperlipidemia E78.2 ; Anger R45.4 ; Drug-induced erectile dysfunction N52.2 and Gastroesophageal reflux disease with esophagitis K21.0 [place] [address] [address] Feb, [place] [address] [address] Dec, Low back pain M54.5 [place] [address] [address] Dec, [place] [address] [address] Dec, Unspecified mood [affective] disorder F39 ; Anxiety disorder, unspecified F41.9 ; Other stimulant dependence, 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 and Cannabis dependence, uncomplicated F12.20 [place] [address] [address] Dec, Essential hypertension I10 ; Hyperlipemia E78.5 ; Erectile dysfunction, unspecified erectile dysfunction type N52.9 ; Anger R45.4 ; Mixed hyperlipidemia E78.2 ; Anxiety associated with depression F41.8 ; Elevated serum creatinine R79.89 ; 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 and Marijuana abuse F12.10 [place] [address] [address] Oct, Essential hypertension I10 ; Idiopathic peripheral neuropathy G60.9 ; Low back pain M54.5 ; Hx of cervical spine surgery Z98.89 ; Erectile dysfunction, unspecified erectile dysfunction type N52.9 ; Anger R45.4 ; Mixed hyperlipidemia E78.2 and Anxiety associated with depression F41.8 [place] [address] [address] Oct, Unspecified mood [affective] disorder F39 and Anxiety disorder, unspecified F41.9 [facility] [address] [id number] [address] [place] [phone] Oct, Hyperlipemia E78.5 [facility] [address] [id number] [address] [place] [address] Oct, Essential hypertension I10 [facility] [address] [place] [id number] [address] [place] [phone] Oct, [facility] [address] [id number] [address] [place] [address] Oct, Essential hypertension I10 ; Idiopathic peripheral neuropathy G60.9 ; Low back pain M54.5 ; Hx of cervical spine surgery Z98.89 ; Pain in right hand M79.641 ; Pain of left hand M79.642 ; Pain in left foot M79.672 ; Pain in right foot M79.671 ; Erectile dysfunction, unspecified erectile dysfunction type N52.9 and Anger R45.4 [facility] [address] [id number] [address] [place] [address] Sep, [facility] [address] [id number] [address] [place] [phone] Jul, [facility] [address] [id number] [address] [place] [address] Jun, [facility] [address] [id number] [address] [place] [phone] May, [facility] [address] [id number] [address] [place] [address] Apr, [facility] [address] [id number] [address] [place] [phone] March, [facility] [address] [id number] [address] [place] [phone] 14 Feb, 2015 [facility] [address] [id number] [address] [place] [phone] Feb, [facility] [address] [id number] [address] [place] [phone] Jan, [facility] [address] [id number] [address] [place] [address], [place] [address] Jan, [facility] [address] [id number] [address] [place] [address], [place] [address] Nov, [facility] [address] [id number] [address] [place] [address], [place] [address] Nov, [facility] [address] [id number] [address] [place] [address], [place] [address] Nov, [facility] [address] [id number] [address] [place] [address], [place] [address] Nov, [facility] [address] [id number] [address] [place] [address], [place] [address] Nov, [facility] [address] [id number] [address] [place] [address], [place] [address] Nov, [facility] [address] [id number] [address] [place] [address], [place] [address] Oct, [facility] [address] [id number] [address] [place] [address], [place] [address] Oct, [facility] [address] [id number] [address] [place] [address], [place] [address] Oct, [facility] [address] [id number] [address] [place] [address], [place] [address] Oct, [facility] [address] [id number] [address] [place] [address], [place] [address] Sep, [facility] [address] [id number] [address] [place] [address], [place] [address] Sep, [facility] [address] [id number] [address] [place] [address], [place] [address] Sep, [facility] [address] [id number] [address] [place] [address], [place] [address] Sep, [facility] [address] [id number] [address] [place] [address], [place] [address] 10 Sep, 2014 [facility] [address] [id number] [address] [place] [address], [place] [address] 16 Aug, 2014 [facility] [address] [id number] [address] [place] [address], [place] [address] 16 Aug, 2014 [facility] [address] [id number] [address] [place] [address], [place] [address] 15 Aug, 2014 [facility] [address] [id number] [address] [place] [address], [place] [address] 15 Aug, 2014 [facility] [address] [id number] [address] [place] [address], [place] [address] 15 Aug, 2014 [facility] [address] [id number] [address] [place] [address], [place] [address] 15 Aug, 2014 [facility] [address] [id number] [address] [place] [address], [place] [address] 13 Aug, 2014 [facility] [address] [id number] [address] [place] [address], [place] [address] 07 Aug, 2014 [facility] [address] [id number] [address] [place] [address], [place] [address] 07 Aug, 2014 [facility] [address] [id number] [address] [place] [address], [place] [address] 06 Aug, 2014 [facility] [address] [id number] [address] [place] [address], [place] [address] 06 Aug, 2014 [facility] [address] [id number] [address] [place] [address], [place] [address] 19 Jul, 2013 [facility] [address] [id number] [address] [place] [address], [place] [address] 19 Jul, 2013 [facility] [address] [id number] [address] [place] [address], [place] [address] 18 Jul, 2013 [facility] [address] [id number] [address] [place] [address], [place] [address] Jul, [facility] [address] [id number] [address] [place] [address], [place] [address] Jun, [facility] [address] [id number] [address] [place] [address], [place] [address] Jun, [facility] [address] [id number] [address] [place] [address], [place] [address] Jun, [facility] [address] [id number] [address] [place] [address], [place] [address] Jun, [facility] [address] [id number] [address] [place] [address], [place] [address] Jun, [facility] [address] [id number] [address] [place] [address], [place] [address] Jun, [facility] [address] [id number] [address] [place] [address], [place] [address] May, [facility] [address] [id number] [address] [place] [address], [place] [address] May, [facility] [address] [id number] [address] [place] [address], [place] [address] May, [facility] [address] [id number] [address] [place] [address], [place] [address] May, [facility] [address] [id number] [address] [place] [address], [place] [id number] May, [facility] [address] [id number] [address] [place] [address], [place] [address] May, [facility] [address] [id number] [address] [place] [address], [place] [address] May, [facility] [address] [id number] [address] [place] [address], [place] [address] May, [facility] [address] [id number] [address] [place] [address], [place] [address] May, [facility] [address] [id number] [address] [place] [address], [place] [address] May, [facility] [address] [id number] [address] [place] [address], [place] [address] May, [facility] [address] [id number] [address] [place] [address], [place] [address] May, [facility] [address] [id number] [address] [place] [address], [place] [address] Apr, [facility] [address] [id number] [address] [place] [address], [place] [address] Apr, [facility] [address] [id number] [address] [place] [address], [place] [address] March, [facility] [address] [id number] [address] [place] [address], [place] [address] March, [facility] [address] [id number] [address] [place] [address], [place] [address] March, [facility] [address] [id number] [address] [place] [address], [place] [address] March, [facility] [address] [id number] [address] [place] [address], [place] [address] Feb, [facility] [address] [id number] [address] [place] [address], [place] [address] Feb, [facility] [address] [id number] [address] [place] [address], [place] [address] Jan, [facility] [address] [id number] [address] [place] [address], [place] [address] Jan, [facility] [address] [id number] [address] [place] [address], [place] [address] Jan, [facility] [address] [id number] [address] [place] [address], [place] [address] Jan, [facility] [address] [id number] [address] [place] [address], [place] [address] Dec, [facility] [address] [id number] [address] [place] [address], [place] [address] Dec, [facility] [address] [id number] [address] [place] [address], [place] [address] Nov, [facility] [address] [id number] [address] [place] [address], [place] [address] Nov, [facility] [address] [id number] [address] [place] [address], [place] [address] Nov, [facility] [address] [id number] [address] [place] [address], [place] [address] Nov, [facility] [address] [id number] [address] [place] [address], [place] [address] Oct, [facility] [address] [id number] [address] [place] [address], [place] [address] Oct, [facility] [address] [id number] [address] [place] [address], [place] [address] Sep, [facility] [address] [id number] [address] [place] [address], [place] [address] Sep, [facility] [address] [id number] [address] [place] [address], [place] [address] Jul, [facility] [address] [id number] [address] [place] [address], [place] [address] Jul, [facility] [address] [id number] [address] [place] [address], [place] [address] Jul, [facility] [address] [id number] [address] [place] [address], [place] [address] Jun, [facility] [address] [id number] [address] [place] [address], [place] [address] Jun, [facility] [address] [id number] [address] [place] [address], [place] [address] May, [facility] [address] [id number] [address] [place] [id number] May, [facility] [address] [id number] [address] [place] [address], [place] [address] May, [facility] [address] [id number] [address] [place] [id number] March, [facility] [address] [id number] [address] [place] [address], [place] [address] Jan, [facility] [address] [id number] [address] [place] [id number] Jan, [facility] [address] [id number] [address] [place] [address], [place] [address] Jan, [facility] [address] [id number] [address] [place] [id number] Dec, [facility] [address] [id number] [address] [place] [id number] May, [facility] [address] [id number] [address] [place] [id number] March, [facility] [address] [id number] [address] [place] [id number] Jan, [facility] [address] [id number] [address] [place] [id number] Aug, [facility] [address] [id number] [address] [place] [id number] Aug, [facility] [address] [id number] [address] [place] [id number] Aug, [facility] [address] [id number] [address] [place] [id number] Jun, [facility] [address] [id number] [address] [place] [id number] 14 May, 2011 [facility] [address] [id number] [place] [phone] Oct, IMMUNIZATIONS No Known Immunizations SOCIAL HISTORY [...]
--- OUTSIDE RECORDS SUMMARY | 2020-02-05 11:01 | XMS REPORT ---
Author Author Jelani Craig Organization [facility] Address [address] [place] [address] Care Team Providers Care Mobile Game Engineer Name Role Phone KRISTEL Craig Unavailable PROBLEMS Type Condition ICD9-CM Code [id number] Code Onset Dates Condition S tatus SNOMED Code Problem Anger R45.4 Active 47415552 Problem Hx of cervical spine surgery Z98.89 A ctive 480066846 Problem Pain in right foot M79.671 Active 4 7833726 Problem Erectile dysfunction, unspecified erectile dysfunction typ e N52.9 Active 527248502 Problem Candidal dermatitis B37.2 Active 86366898 Problem Gastroesophageal reflux disease with esophagitis K 21.0 Active 600593333 Problem Anxiety disorder, unspecified F41.9 Active 194241722 Problem Mixed hyperlipidemia E78.2 Active 984379478 Problem 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 Active 547741855 Problem Unspecified mood [affective] disorder F39 Active 142259842 Problem Other stimulant dependence, 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 Active 287384306 Problem Marijuana abuse F12.10 Active 3734 4009 Problem Drug-induced erectile dysfunction N52.2 Active 311741467 Problem Cannabis dependence, uncomplicated F12.20 Active 25250430 Problem Wheezing R06.2 Active 84634130 Problem Psychophysiological insomnia F51.04 A ctive 346977843 Problem Pure hypercholesterolemia E78.00 Acti ve 976263625 Problem Anxiety F41.9 Active 52055156 Problem Idiopathic peripheral neuropathy G60.9 Active 19885269 Problem Polydipsia R63.1 Active 58022543 Problem Low back pain M54.5 Active 679291 005 Problem Essential hypertension I10 Active 38230164 Problem Pain in right knee M25.561 Active 3 [id number] Problem Mood disorder F39 Active 673197 05 Problem Other chronic pain G89.29 Active 8 8844394 Problem Primary osteoarthritis of left hip M16.12 Active 604643181 ALLERGIES No Information ENCOUNTERS Encounter Location Date Diagnosis [facility] [address] [facility] [id number] [address] [place] [address] March, [facility] [address] [facility] [id number] [address] [place] [address] March, Essential hypertension I10 [facility] [address] [facility] [id number] [address] [place] [address] March, [facility] [address] [facility] [id number] [address] [place] [address] Feb, [facility] [address] [facility] [id number] [address] [place] [address] Feb, [facility] [address] [facility] [id number] [address] [place] [address] Feb, [facility] [address] [facility] [id number] [address] [place] [address] Feb, Prediabetes R73.03 [facility] [address] [facility] [id number] [address] [place] [id number] Jan, [facility] [address] [place] [id number] [address] [place] [address] Jan, [facility] [address] [facility] [id number] [address] [place] [address] Jan, Polydipsia R63.1 ; Periphera l edema R60.9 ; Pre-diabetes R73.[address].8 [facility] [address] [facility] [id number] [address] [place] [address] Sep, Other chronic pain G89.29 [facility] [address] [place] [id number] [address] [place] [id number] 06 Sep, 2018 Acute low back pain, unspeci fied back pain laterality, with sciatica presence unspecified M54.5 [facility] [address] [facility] [id number] [address] [place] [address] Sep, Low vitamin D level R79.89 [facility] [address] [id number] [address] [place] [address] Aug, Acute low back pain, unspeci fied back pain laterality, with sciatica presence unspecified M54.5 and Primary osteoarthritis of left hip M16.12 [facility] [address] [id number] [address] [place] [address] Aug, [facility] [address] [id number] [address] [place] [address] Jun, [facility] [address] [id number] [address] [place] [id number] Jun, Other chronic pain G89.29 an d Pain in right knee M25.561 [facility] [address] [id number] [address] [place] [address] May, Primary osteoarthritis of le ft hip M16.12 ; Pain in left hip M25.552 ; Other acute postprocedural pain G89.[address] [facility] [address] [id number] [address] [place] [address] May, [facility] [address] [id number] [address] [place] [address] Apr, Pain in right knee M25.561 a nd Mood disorder F39 [facility] [address] [id number] [address] [place] [address] Apr, [facility] [address] [id number] [address] [place] [address] [id number] March, [facility] [address] [id number] [address] [place] [id number] March, Encounter for dental exam an d cleaning w/o abnormal findings Z01.20 [facility] [address] [id number] [address] [place] [address] [id number] March, Dental examination Z01.20 [facility] [address] [id number] [address] [place] [id number] March, Dental examination Z01.20 [facility] [address] [id number] [address] [place] [address] March, [facility] [address] [id number] [address] [place] [address] March, [facility] [address] [id number] [address] [place] [address] Feb, [facility] [address] [id number] [address] [place] [address] Feb, Primary osteoarthritis of le ft hip M16.12 [facility] [address] [id number] [address] [place] [address] Feb, Other chronic pain G89.29 an d Pain in left hip M25.552 [facility] [address] [id number] [address] [place] [address] Feb, Acute pain of left hip M25.[address] [facility] [address] [id number] [address] [place] [address] Feb, Mood disorder F39 and Pain i n right knee M25.561 [facility] [address] [id number] [address] [place] [address] Jan, Other chronic pain G89.29 [facility] [address] [id number] [address] [place] [address] Jan, Mood disorder F39 [facility] [address] [id number] [address] [place] [address] Jan, Pain in right knee M25.561 [facility] [address] [id number] [address] [place] [address] Jan, Pain in left hip M25.552 and Other chronic pain G89.29 [facility] [address] [id number] [address] [place] [address] Jan, Acute pain of left hip M25.[address] [facility] [address] [address] Jan, Acute pain of left hip M25.5 [address] [place] [address] [address] Jan, Mood disorder F39 and Acute pain of left hip M25.552 [place] [address] [address] Nov, Mood disorder F39 [place] [address] [address] Oct, Essential hypertension I10 ; Mixed hyperlipidemia E78.2 and Low back pain M54.5 [place] [address] [id number] May, [place] [address] [address] Apr, Essential hypertension I10 ; Anger R45.4 ; Mixed hyperlipidemia E78.2 ; Drug-induced erectile dysfunction N52.2 ; Gastroesophageal reflux disease with esophagitis K21.0 ; Pure hypercholesterolemia E78.00 ; Pain in right knee M25.561 ; Psychophysiological insomnia F51.04 and Wheezing R06.2 [place] [address] [place] [id number] [address] [place] [address] March, Hx of cervical spine surgery Z98.89 [place] [address] [address] March, [place] [address] [address] Feb, Anxiety associated with depr ession F41.8 [place] [address] [address] Jan, Anxiety associated with depr ession F41.8 [place] [address] [place] [id number] [address] [place] [address] Dec, [place] [address] [address] Dec, [place] [address] [address] Dec, Essential hypertension I10 ; Erectile dysfunction, unspecified erectile dysfunction type N52.9 and Hyperlipemia E78.5 [place] [address] [address] Nov, Essential hypertension I10 ; Hx of cervical spine surgery Z98.89 ; Erectile dysfunction, unspecified erectile dysfunction type N52.9 ; Idiopathic peripheral neuropathy G60.9 ; Anger R45.4 ; Anxiety associated with depression F41.8 ; Hyperlipemia E78.5 ; Wheezing R06.2 and Has daytime drowsiness R40.0 [place] [address] [address] Nov, [place] [address] [address] Nov, [place] [address] [address] Sep, [place] [address] [address] Sep, Acute midline low back pain without sciatica M54.5 [place] [address] [address] Sep, Acute bilateral low back ekta n without sciatica M54.5 [place] [address] [address] Aug, [place] [address] [address] Jun, Wheezing R06.2 ; Candidal de rmatitis B37.2 ; Essential hypertension I10 ; Erectile dysfunction, unspecified erectile dysfunction type N52.9 ; Idiopathic peripheral neuropathy G60.9 ; Mixed hyperlipidemia E78.2 and Other stimulant dependence, 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 [place] [address] [address] March, Essential hypertension I10 ; Hx of cervical spine surgery Z98.89 ; Idiopathic peripheral neuropathy G60.9 ; Mixed hyperlipidemia E78.2 ; Anger R45.4 ; Drug-induced erectile dysfunction N52.2 and Gastroesophageal reflux disease with esophagitis K21.0 [place] [address] [address] Feb, [place] [address] [address] Dec, Low back pain M54.[address] [address] Dec, [place] [address] [address] Dec, Unspecified mood [affective] disorder F39 ; Anxiety disorder, unspecified F41.9 ; Other stimulant dependence, 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 and Cannabis dependence, uncomplicated F12.20 [place] [address] [address] Dec, Essential hypertension I10 ; Hyperlipemia E78.5 ; Erectile dysfunction, unspecified erectile dysfunction type N52.9 ; Anger R45.4 ; Mixed hyperlipidemia E78.2 ; Anxiety associated with depression F41.8 ; Elevated serum creatinine R79.89 ; 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 and Marijuana abuse F12.10 [place] [address] [place] [id number] [address] [place] [address] Oct, Essential hypertension I10 ; Idiopathic peripheral neuropathy G60.9 ; Low back pain M54.5 ; Hx of cervical spine surgery Z98.89 ; Erectile dysfunction, unspecified erectile dysfunction type N52.9 ; Anger R45.4 ; Mixed hyperlipidemia E78.2 and Anxiety associated with depression F41.8 [place] [address] [address] Oct, Unspecified mood [affective] disorder F39 and Anxiety disorder, unspecified F41.9 [facility] [address] [facility] [id number] [address] [place] [address] Oct, Hyperlipemia E78.5 [facility] [address] [facility] [id number] [address] [place] [address] Oct, Essential hypertension I10 [facility] [address] [place] [id number] [address] [place] [address] Oct, [facility] [address] [place] [id number] [address] [place] [address] Oct, Essential hypertension I10 ; Idiopathic peripheral neuropathy G60.9 ; Low back pain M54.5 ; Hx of cervical spine surgery Z98.89 ; Pain in right hand M79.641 ; Pain of left hand M79.642 ; Pain in left foot M79.672 ; Pain in right foot M79.671 ; Erectile dysfunction, unspecified erectile dysfunction type N52.[address] [facility] [address] [place] [id number] [address] [place] [address] Sep, [facility] [address] [facility] [id number] [address] [place] [address] Jul, [facility] [address] [place] [id number] [address] [place] [address] Jun, [facility] [address] [facility] [id number] [address] [place] [address] May, [facility] [address] [place] [id number] [address] [place] [address] Apr, [facility] [address] [facility] [id number] [address] [place] [address] March, [facility] [address] [place] [id number] [address] [place] [address] [address], [address] [facility] [address] [place] [id number] [address] [place] [address] Feb, [facility] [address] [id number] [address] [place] [address], [place] [address] Jan, [facility] [address] [id number] [address] [place] [address], [place] [address] Jan, [facility] [address] [id number] [address] [place] [address], [place] [address] Nov, [facility] [address] [id number] [address] [place] [address], [place] [address] Nov, [facility] [address] [id number] [address] [place] [address], [place] [address] Nov, [facility] [address] [id number] [address] [place] [address], [place] [address] Nov, [facility] [address] [id number] [address] [place] [address], [place] [address] Nov, [facility] [address] [id number] [address] [place] [address], [place] [address] Nov, [facility] [address] [id number] [address] [place] [address], [place] [address] Oct, [facility] [address] [id number] [address] [place] [address], [place] [address] Oct, [facility] [address] [id number] [address] [place] [address], [place] [address] Oct, [facility] [address] [id number] [address] [place] [address], [place] [address] Oct, [facility] [address] [id number] [address] [place] [address], [place] [address] Sep, [facility] [address] [id number] [address] [place] [address], [place] [address] Sep, [facility] [address] [id number] [address] [place] [address], [place] [address] Sep, [facility] [address] [id number] [address] [place] [address], [place] [address] Sep, [facility] [address] [id number] [address] [place] [address], [place] [address] 10 Sep, 2014 [facility] [address] [id number] [address] [place] [address], [place] [address] 16 Aug, 2014 [facility] [address] [id number] [address] [place] [address], [place] [address] 16 Aug, 2014 [facility] [address] [id number] [address] [place] [address], [place] [address] 15 Aug, 2014 [facility] [address] [id number] [address] [place] [address], [place] [address] 15 Aug, 2014 [facility] [address] [id number] [address] [place] [address], [place] [address] 15 Aug, 2014 [facility] [address] [id number] [address] [place] [address], [place] [address] 15 Aug, 2014 [facility] [address] [id number] [address] [place] [address] 13 Aug, 2014 [facility] [address] [id number] [address] [place] [address], [place] [address] 07 Aug, 2014 [facility] [address] [id number] [address] [place] [address] 07 Aug, 2014 [facility] [address] [id number] [address] [place] [address] 06 Aug, 2014 [facility] [address] [id number] [address] [place] [address] 06 Aug, 2014 [facility] [address] [id number] [address] [place] [address], [place] [address] 19 Jul, 2014 [facility] [address] [id number] [address] [place] [id number] 19 Jul, 2014 [facility] [address] [id number] [address] [place] [address] 18 Jul, 2014 [facility] [address] [id number] [address] [place] [address] Jul, [facility] [address] [id number] [address] [place] [address], [place] [address] Jun, [facility] [address] [id number] [address] [place] [address], [place] [address] Jun, [facility] [address] [id number] [address] [place] [address], [place] [address] Jun, [facility] [address] [id number] [address] [place] [address], [place] [address] Jun, [facility] [address] [id number] [address] [place] [address], [place] [address] Jun, [facility] [address] [id number] [address] [place] [address], [place] [address] Jun, [facility] [address] [id number] [address] [place] [address], [place] [address] May, [facility] [address] [id number] [address] [place] [address], [place] [address] May, [facility] [address] [id number] [address] [place] [address], [place] [address] May, [facility] [address] [id number] [address] [place] [address], [place] [address] May, [facility] [address] [id number] [address] [place] [address] [id number] May, [facility] [address] [id number] [address] [place] [address], [place] [address] May, [facility] [address] [id number] [address] [place] [address], [place] [id number] May, [facility] [address] [id number] [address] [place] [address], [place] [address] May, [facility] [address] [id number] [address] [place] [address], [place] [address] May, [facility] [address] [id number] [facility] [place] [address] May, [facility] [address] [id number] [facility] [place] [address] May, [facility] [address] [id number] [address] [place] [address], [place] [address] May, [facility] [address] [id number] [address] [place] [address], [place] [address] Apr, [facility] [address] [id number] [address] [place] [address], [place] [address] Apr, [facility] [address] [id number] [address] [place] [address], [place] [address] March, [facility] [address] [id number] [address] [place] [address], [place] [address] March, [facility] [address] [id number] [address] [place] [address], [place] [address] March, [facility] [address] [id number] [address] [place] [address], [place] [address] March, [facility] [address] [id number] [address] [place] [address], [place] [address] Feb, [facility] [address] [id number] [address] [place] [address], [place] [address] Feb, [facility] [address] [id number] [address] [place] [address], [place] [address] Jan, [facility] [address] [id number] [address] [place] [address], [place] [address] Jan, [facility] [address] [id number] [address] [place] [address], [place] [address] Jan, [facility] [address] [id number] [address] [place] [address], [place] [id number] Jan, [facility] [address] [id number] [address] [place] [address], [place] [id number] Dec, [facility] [address] [id number] [address] [place] [address], [place] [id number] Dec, [facility] [address] [id number] [address] [place] [address], [place] [id number] Nov, [facility] [address] [id number] [address] [place] [address], [place] [id number] Nov, [facility] [address] [id number] [address] [place] [address], [place] [id number] Nov, [facility] [address] [id number] [address] [place] [address], [place] [id number] Nov, [facility] [address] [id number] [address] [place] [address], [place] [id number] Oct, [facility] [address] [id number] [address] [place] [address], [place] [id number] Oct, [facility] [address] [id number] [address] [place] [address], [place] [id number] Sep, [facility] [address] [id number] [address] [place] [address], [place] [id number] Sep, [facility] [address] [id number] [address] [place] [address], [place] [id number] Jul, [facility] [address] [id number] [address] [place] [address], [place] [id number] Jul, [facility] [address] [id number] [address] [place] [address], [place] [id number] Jul, [facility] [address] [id number] [address] [place] [address], [place] [id number] Jun, [facility] [address] [id number] [address] [place] [address], [place] [id number] Jun, [facility] [address] [id number] [address] [place] [address], [place] [id number] May, [facility] [address] [id number] [address] [place] [address], [place] [id number] May, [facility] [address] [id number] [address] [place] [address], [place] [id number] May, [facility] [address] [id number] [address] [place] [address], [place] [id number] March, [facility] [address] [id number] [address] [place] [address], [place] [id number] Jan, [facility] [address] [id number] [address] [place] [address], [place] [id number] Jan, [facility] [address] [id number] [address] [place] [address], [place] [id number] Jan, [facility] [address] [id number] [address] [place] [address], [place] [id number] Dec, [facility] [address] [id number] [address] [place] [address], [place] [id number] May[facility] [facility] [address] [id number] [address] [place] [address], [place] [id number] March, [facility] [address] [id number] [address] [place] [address], [place] [id number] Jan, [facility] [address] [id number] [address] [place] [address], [place] [id number] Aug, [facility] [address] [id number] [address] [place] [address], [place] [id number] Aug, [facility] [address] [id number] [address] [place] [id number] Aug, [facility] [address] [id number] [address] [place] [address], [place] [id number] Jun, [facility] [address] [id number] [address] [place] [address], [place] [id number] 14 May, 2011 [facility] [address] [id number] [address] [place] [id number] Oct, IMMUNIZATIONS No Known Immunizations SOCIAL HISTORY Never Assessed REASON FOR VISIT PLAN OF CARE VITAL SIGNS Height 66 in 2015-01-27 Weight 198.1 lbs 2015-01-27 Temperature 97.6 degrees Fahrenheit 2015-01-27 Heart Rate 83 bpm 2015-01-27 Respiratory Rate 16 2015-01-27 Blood pressure systolic 150 mmHg 2015-01-27 Blood pressure diastolic 99 mmHg 2015-01-27 MEDICATIONS Unknown Medications RESULTS No Results PROCEDURES Procedure Date Ordered Result Body Site VISIT January 27, 2015 INSTRUCTIONS MEDICATIONS ADMINISTERED No Known Medications MEDICAL [...]
--- OUTSIDE RECORDS SUMMARY | 2020-02-05 11:02 | XMS REPORT ---
Author Author Jelani DIAZ Organization [facility] Address [address] [place] [address] Care Team Providers Care Supervisor Of Instruction Name Role Phone SHITAL DIAZ Unavailable PROBLEMS Type Condition ICD9-CM Code NTS28-ER Code Onset Dates Condition S tatus SNOMED Code Problem Hx of cervical spine surgery Z98.89 A ctive 585477220 Problem Drug-induced erectile dysfunction N52.2 Active 532193220 Problem Anger R45.4 Active 59553050 Problem Gastroesophageal reflux disease with esophagitis K 21.0 Active 057424079 Problem Erectile dysfunction, unspecified erectile dysfunction typ e N52.9 Active 791490674 Problem Candidal dermatitis B37.2 Active 45185380 Problem Psychophysiological insomnia F51.04 A ctive 808146300 Problem Wheezing R06.2 Active 87203511 Problem Anxiety F41.9 Active 60010471 Problem Primary osteoarthritis of left hip M16.12 Active 581759755 Problem Idiopathic peripheral neuropathy G60.9 Active 07758825 Problem Low back pain M54.5 Active 209830 005 Problem Pain in right foot M79.671 Active 4 6023195 Problem Pain in right knee M25.561 Active 3 [id number] Problem Pure hypercholesterolemia E78.00 Acti ve 829249077 Problem Other chronic pain G89.29 Active 8 8325944 Problem Mood disorder F39 Active 732683 05 Problem Anxiety disorder, unspecified F41.9 Active 142285120 Problem Unspecified mood [affective] disorder F39 Active 308034169 Problem Essential hypertension I10 Active 07743121 Problem Mixed hyperlipidemia E78.2 Active 166005922 Problem Other stimulant dependence, 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 Active 708308641 Problem Cannabis dependence, uncomplicated F12.20 Active 22087752 Problem 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 Active 455470633 Problem Marijuana abuse F12.10 Active 3734 4009 ALLERGIES Substance Reaction Event Type Date Status Codeine Sulfate stomach problems Drug Allergy Aug, Active bee stings Unknown Non Drug Allergy Aug, Active ENCOUNTERS Encounter Location Date Diagnosis [facility] [address] [facility] [id number] [address] [place] [address] Sep, Acute low back pain, unspeci fied back pain laterality, with sciatica presence unspecified M54.5 [place] [address] [facility] [id number] [address] [place] [phone] Sep, Low vitamin D level R79.89 [place] [address] [facility] [id number] [address] [place] [address] Aug, Acute low back pain, unspeci fied back pain laterality, with sciatica presence unspecified M54.5 and Primary osteoarthritis of left hip M16.12 [place] [address] [facility] [id number] [address] [place] [phone] Aug, [place] [address] [place] [id number] [address] [place] [address] Jun, [place] [address] [place] [id number] [address] [place] [address] Jun, Other chronic pain G89.29 an d Pain in right knee M25.561 [place] [address] [address] [place] [id number] [address] [place] [address] May, Primary osteoarthritis of le ft hip M16.12 ; Pain in left hip M25.552 ; Other acute postprocedural pain G89.18 and Anxiety F41.9 [place] [address] [address] [facility] [id number] [address] [place] [address] May, [facility] [address] [facility] [id number] [address] [place] [address] Apr, Pain in right knee M25.561 a nd Mood disorder F39 [facility] [address] [facility] [id number] [address] [place] [address] Apr, [facility] [address] [id number] [address] [place] [address] [id number] March, [facility] [address] [id number] [address] [place] [id number] March, Encounter for dental exam an d cleaning w/o abnormal findings Z01.20 [facility] [address] [id number] [address] [place] [address] [id number] March, Dental examination Z01.20 [facility] [address] [id number] [address] [place] [address] [id number] March, Dental examination Z01.20 [facility] [address] [id number] [address] [place] [phone] March, [facility] [address] [id number] [address] [place] [address] March, [facility] [address] [id number] [address] [place] [phone] Feb, [facility] [address] [id number] [address] [place] [address] Feb, Primary osteoarthritis of le ft hip M16.12 [facility] [address] [id number] [address] [place] [address] Feb, Other chronic pain G89.29 an d Pain in left hip M25.552 [facility] [address] [id number] [address] [place] [address] Feb, Acute pain of left hip M25.5 52 [facility] [address] [id number] [address] [place] [address] Feb, Mood disorder F39 and Pain i n right knee M25.561 [facility] [address] [id number] [address] [place] [address] Jan, Other chronic pain G89.29 [facility] [address] [id number] [address] [place] [id number] Jan, Mood disorder F39 [facility] [address] [id number] [address] [place] [address] Jan, Pain in right knee M25.561 [facility] [address] [facility] [id number] [address] [place] [address] Jan, Pain in left hip M25.552 and Other chronic pain G89.29 [facility] [address] [facility] [id number] [address] [place] [address] Jan, Acute pain of left hip M25.5 52 [place] [address] [facility] [id number] [address] [place] [address] Jan, Acute pain of left hip M25.5 52 [place] [address] [facility] [id number] [address] [place] [address] Jan, Mood disorder F39 and Acute pain of left hip M25.552 [place] [address] [address] [place] [id number] [address] [place] [address] Nov, Mood disorder F39 [place] [address] [place] [id number] [place] [address] Oct, Essential hypertension I10 ; Mixed hyperlipidemia E78.2 and Low back pain M54.5 [facility] [address] [id number] May, [place] [address] [place] [id number] [place] [address] Apr, Essential hypertension I10 ; Anger R45.4 ; Mixed hyperlipidemia E78.2 ; Drug-induced erectile dysfunction N52.2 ; Gastroesophageal reflux disease with esophagitis K21.0 ; Pure hypercholesterolemia E78.00 ; Pain in right knee M25.561 ; Psychophysiological insomnia F51.04 and Wheezing R06.2 [place] [address] [place] [id number] [address] [place] [address] March, Hx of cervical spine surgery Z98.89 [facility] [address] [place] [id number] [address] [place] [phone] March, [facility] [address] [address] Feb, Anxiety associated with depr ession F41.8 [facility] [address] [facility] [id number] [address] [place] [phone] Jan, Anxiety associated with depr ession F41.8 [facility] [address] [facility] [id number] [address] [place] [address] Dec, [facility] [address] [facility] [id number] [address] [place] [phone] Dec, [facility] [address] [facility] [id number] [address] [place] [phone] Dec, Essential hypertension I10 ; Erectile dysfunction, unspecified erectile dysfunction type N52.9 and Hyperlipemia E78.5 [facility] [address] [place] [id number] [place] [address] Nov, Essential hypertension I10 ; Hx of cervical spine surgery Z98.89 ; Erectile dysfunction, unspecified erectile dysfunction type N52.9 ; Idiopathic peripheral neuropathy G60.9 ; Anger R45.4 ; Anxiety associated with depression F41.8 ; Hyperlipemia E78.5 ; Wheezing R06.2 and Has daytime drowsiness R40.0 [facility] [address] [place] [id number] [address] [place] [address] Nov, [facility] [address] [place] [id number] [address] [place] [phone] Nov, [facility] [address] [facility] [id number] [address] [place] [address] Sep, [facility] [address] [facility] [id number] [address] [place] [address] Sep, Acute midline low back pain without sciatica M54.5 [facility] [address] [place] [id number] [address] [place] [phone] Sep, Acute bilateral low back ekta n without sciatica M54.5 [facility] [address] [place] [id number] [address] [place] [phone] Aug, [place] [address] [address] Jun, Wheezing R06.2 ; Candidal de rmatitis B37.2 ; Essential hypertension I10 ; Erectile dysfunction, unspecified erectile dysfunction type N52.9 ; Idiopathic peripheral neuropathy G60.9 ; Mixed hyperlipidemia E78.2 and Other stimulant dependence, 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 [place] [address] [address] March, Essential hypertension I10 ; Hx of cervical spine surgery Z98.89 ; Idiopathic peripheral neuropathy G60.9 ; Mixed hyperlipidemia E78.2 ; Anger R45.4 ; Drug-induced erectile dysfunction N52.2 and Gastroesophageal reflux disease with esophagitis K21.0 [place] [address] [address] Feb, [place] [address] [address] Dec, Low back pain M54.5 [place] [address] [address] Dec, [place] [address] [address] Dec, Unspecified mood [affective] disorder F39 ; Anxiety disorder, unspecified F41.9 ; Other stimulant dependence, 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 and Cannabis dependence, uncomplicated F12.20 [place] [address] [address] Dec, Essential hypertension I10 ; Hyperlipemia E78.5 ; Erectile dysfunction, unspecified erectile dysfunction type N52.9 ; Anger R45.4 ; Mixed hyperlipidemia E78.2 ; Anxiety associated with depression F41.8 ; Elevated serum creatinine R79.89 ; 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 and Marijuana abuse F12.10 [place] [address] [address] Oct, Essential hypertension I10 ; Idiopathic peripheral neuropathy G60.9 ; Low back pain M54.5 ; Hx of cervical spine surgery Z98.89 ; Erectile dysfunction, unspecified erectile dysfunction type N52.9 ; Anger R45.4 ; Mixed hyperlipidemia E78.2 and Anxiety associated with depression F41.8 [facility] [address] [place] [id number] [address] [place] [address] Oct, Unspecified mood [affective] disorder F39 and Anxiety disorder, unspecified F41.9 [place] [address] [place] [id number] [place] [address] Oct, Hyperlipemia E78.5 [place] [address] [address] Oct, Essential hypertension I10 [place] [address] [place] [id number] [place] [address] Oct, [place] [address] [address] Oct, Essential hypertension I10 ; Idiopathic peripheral neuropathy G60.9 ; Low back pain M54.5 ; Hx of cervical spine surgery Z98.89 ; Pain in right hand M79.641 ; Pain of left hand M79.642 ; Pain in left foot M79.672 ; Pain in right foot M79.671 ; Erectile dysfunction, unspecified erectile dysfunction type N52.9 and Anger R45.4 [place] [address] [place] [id number] [address] [place] [id number] Sep, [place] [address] [place] [id number] [address] [place] [phone] Jul, [place] [address] [place] [id number] [place] [address] Jun, [facility] [address] [place] [id number] [address] [place] [phone] May, [place] [address] [place] [id number] [place] [address] Apr, [facility] [address] [id number] [address] [place] [address], [place] [address] March, [facility] [address] [id number] [address] [place] [address], [place] [address] Feb, [facility] [address] [id number] [address] [place] [address], [place] [address] Feb, [facility] [address] [id number] [address] [place] [address], [place] [address] Jan, [facility] [address] [id number] [address] [place] [address], [place] [address] Jan, [facility] [address] [id number] [address] [place] [address], [place] [address] Nov, [facility] [address] [id number] [address] [place] [address], [place] [address] Nov, [facility] [address] [id number] [address] [place] [address], [place] [address] Nov, [facility] [address] [id number] [address] [place] [address], [place] [address] Nov, [facility] [address] [id number] [address] [place] [address], [place] [address] Nov, [facility] [address] [id number] [address] [place] [address], [place] [address] Nov, [facility] [address] [id number] [address] [place] [address], [place] [address] Oct, [facility] [address] [id number] [address] [place] [address], [place] [address] Oct, [facility] [address] [id number] [address] [place] [address], [place] [address] Oct, [facility] [address] [id number] [address] [place] [address], [place] [address] Oct, [facility] [address] [id number] [address] [place] [phone] Sep, [facility] [address] [id number] [address] [place] [address], [place] [address] Sep, [facility] [address] [id number] [address] [place] [phone] Sep, [facility] [address] [id number] [address] [place] [address], [place] [address] Sep, [facility] [address] [id number] [address] [place] [address] Sep, [facility] [address] [id number] [address] [place] [address], [place] [address] 16 Aug, 2014 [facility] [address] [id number] [address] [place] [address] 16 Aug, 2014 [facility] [address] [id number] [address] [place] [address] 15 Aug, 2014 [facility] [address] [id number] [address] [place] [phone] 15 Aug, 2014 [facility] [address] [id number] [address] [place] [address] 15 Aug, 2014 [facility] [address] [id number] [address] [place] [address] 15 Aug, 2014 [facility] [address] [id number] [address] [place] [address] 13 Aug, 2014 [facility] [address] [id number] [address] [place] [address] 07 Aug, 2014 [facility] [address] [id number] [address] [place] [id number] 07 Aug, 2014 [facility] [address] [id number] [address] [place] [id number] 06 Aug, 2014 [facility] [address] [id number] [address] [place] [address] Aug, [facility] [address] [id number] [address] [place] [address], [place] [address] 19 Jul, 2013 [facility] [address] [id number] [address] [place] [address], [place] [address] 19 Jul, 2014 [facility] [address] [id number] [address] [place] [address], [place] [address] Jul, [facility] [address] [id number] [address] [place] [address], [place] [address] Jul, [facility] [address] [id number] [address] [place] [address], [place] [address] Jun, [facility] [address] [id number] [address] [place] [address], [place] [address] Jun, [facility] [address] [id number] [address] [place] [address], [place] [address] Jun, [facility] [address] [id number] [address] [place] [address], [place] [address] Jun, [facility] [address] [id number] [address] [place] [address], [place] [address] Jun, [facility] [address] [id number] [address] [place] [address], [place] [address] Jun, [facility] [address] [id number] [address] [place] [address], [place] [address] May, [facility] [address] [id number] [address] [place] [address], [place] [address] May, [facility] [address] [id number] [address] [place] [address], [place] [address] May, [facility] [address] [id number] [address] [place] [address], [place] [address] May, [facility] [address] [id number] [address] [place] [address], [place] [id number] May, [facility] [address] [id number] [address] [place] [address], [place] [address] May, [facility] [address] [id number] [facility] [place] [address] May, [facility] [address] [id number] [facility] [place] [address] May, [facility] [address] [id number] [address] [place] [address], [place] [address] May, [facility] [address] [id number] [address] [place] [address], [place] [address] May, [facility] [address] [id number] [address] [place] [address], [place] [address] May, [facility] [address] [id number] [address] [place] [address], [place] [address] May, [facility] [address] [id number] [address] [place] [address], [place] [address] Apr, [facility] [address] [id number] [address] [place] [address], [place] [address] Apr, [facility] [address] [id number] [address] [place] [address], [place] [address] March, [facility] [address] [id number] [address] [place] [address], [place] [address] March, [facility] [address] [id number] [address] [place] [address], [place] [address] March, [facility] [address] [id number] [address] [place] [address], [place] [address] March, [facility] [address] [id number] [address] [place] [address], [place] [address] Feb, [facility] [address] [id number] [address] [place] [address], [place] [address] Feb, [facility] [address] [id number] [address] [place] [address], [place] [address] Jan, [facility] [address] [id number] [address] [place] [address], [place] [address] Jan, [facility] [address] [id number] [address] [place] [address], [place] [address] Jan, [facility] [address] [id number] [address] [place] [address], [place] [address] Jan, [facility] [address] [id number] [address] [place] [address], [place] [address] Dec, [facility] [address] [id number] [address] [place] [address], [place] [address] Dec, [facility] [address] [id number] [address] [place] [address], [place] [address] Nov, [facility] [address] [id number] [address] [place] [address], [place] [address] Nov, [facility] [address] [id number] [address] [place] [address], [place] [address] Nov, [facility] [address] [id number] [address] [place] [address], [place] [address] Nov, [facility] [address] [id number] [address] [place] [address], [place] [address] Oct, [facility] [address] [id number] [address] [place] [address], [place] [address] Oct, [facility] [address] [id number] [address] [place] [address], [place] [address] Sep, [facility] [address] [id number] [address] [place] [address], [place] [address] Sep, [facility] [address] [id number] [address] [place] [address], [place] [address] 26 Jul, 2013 [facility] [address] [id number] [address] [place] [address], [place] [id number] 19 Jul, 2013 [facility] [address] [id number] [address] [place] [address], [place] [address] Jul, [facility] [address] [id number] [address] [place] [address], [place] [address] Jun, [facility] [address] [id number] [address] [place] [address], [place] [address] Jun, [facility] [address] [id number] [address] [place] [address], [place] [address] May, [facility] [address] [id number] [address] [place] [address], [place] [phone] May, [facility] [address] [id number] [address] [place] [address], [place] [address] May, [facility] [address] [id number] [address] [place] [address], [place] [address] March, [facility] [address] [id number] [address] [place] [address], [place] [address] Jan, [facility] [address] [id number] [address] [place] [address], [place] [address] Jan, [facility] [address] [id number] [address] [place] [address], [place] [address] Jan, [facility] [address] [id number] [address] [place] [address], [place] [address] Dec, [facility] [address] [id number] [address] [place] [address], [place] [address] May, [facility] [address] [id number] [address] [place] [address], [place] [address] March, [facility] [address] [id number] [address] [place] [address], [place] [address] Jan, [facility] [address] [id number] [address] [place] [address], [place] [address] Aug, [facility] [address] [id number] [address] [place] [address], [place] [address] 13 Aug, 2011 [facility] [address] [id number] [address] [address] Aug, [facility] [address] [facility] [id number] [address] [place] [phone] Jun, [facility] [address] [facility] [id number] [address] [place] [id number] May, [facility] [address] [facility] [id number] [address] [place] [id number] Oct, IMMUNIZATIONS Vaccine Route Administration Date Status DEXAMETHASONE 4MG/ML (PER 1 MG) IM Intramuscular Sep 10, 2018 Administered DEPO MEDROL 40 MG/ML IM Intramuscular Sep 10, 2018 Administer ed SOCIAL HISTORY Never Assessed REASON FOR VISIT Back pain-DIMAS londono, pt is complaining of back pain, also states he start whee zing for about a week now PLAN OF CARE Activity Details Follow Up prn Reason: VITAL SIGNS Height 66 in 2018-09-10 Weight 234.8 lbs 2018-09-10 Temperature 97.2 degrees Fahrenheit 2018-09-10 Heart Rate 106 bpm 2018-09-10 Respiratory Rate 18 2018-09-10 Oximetry on room air:93 % 2018-09-10 BMI 37.89 kg/m2 2018-09-10 Blood pressure systolic 170 mmHg 2018-09-10 Blood pressure diastolic 102 mmHg 2018-09-10 MEDICATIONS Medication Instructions Dosage Frequency Start Date End Date Duration S essieus Citalopram Hydrobromide 20 MG Orally Once a day 1 tablet 24h Feb, 30 day(s) Active Trazodone HCl 150 MG Orally Once a day 1 tablet at bedtime 24h 2017 Active HydrOXYzine Pamoate 25 MG Orally every 8 hrs 1 capsule as needed 8h 16 May, 2018 30 day(s) Active Lisinopril 10 mg Orally Once a day 1 tablet 24h Oct, Active Neurontin 800 MG Orally 3 times a day 1 tablet 8h 3 0 Active Flexeril 10 mg Orally Three times a day 1 tablet as needed 8h 30 Active Meloxicam 7.5 MG Orally 2 times a day 1 tablet 12h Jun, Sep, 30 day(s) Active Norvasc 5 mg Orally Once a day 1 tablet 24h 30 Active RESULTS No Results PROCEDURES Procedure Date Ordered Result Body Site DEPO MEDROL 40 MG/ML Sep 10, 2018 DEXAMETHASONE 4MG/ML (PER 1 MG) Sep 10, 2018 THER/PROPH/DIAG INJ, SC/IM Sep 10, 2018 X-RAY EXAM OF LOWER SPINE Sep 10, 2018 LAB NOT BILLED BY [facility] Sep 10, 2018 INSTRUCTIONS MEDICATIONS ADMINISTERED No Known Medications MEDICAL [...]
--- OUTSIDE RECORDS SUMMARY | 2020-02-05 11:02 | XMS REPORT ---
Author Author Jelani Arambula Doctor Organization [facility] Address Unknown Phone Unavailable Care Team Providers Care Rac Specialist Name Role Phone Migration, Doctor Unavailable Unavailable PROBLEMS Type Condition ICD9-CM Code HDM01-ZE Code Onset Dates Condition S tatus SNOMED Code Problem Anger R45.4 Active 79653833 Problem Hx of cervical spine surgery Z98.89 A ctive 226490151 Problem Pain in right foot M79.671 Active 4 4083980 Problem Erectile dysfunction, unspecified erectile dysfunction typ e N52.9 Active 471652880 Problem Candidal dermatitis B37.2 Active 71567128 Problem Gastroesophageal reflux disease with esophagitis K 21.0 Active 799260323 Problem Anxiety disorder, unspecified F41.9 Active 203943834 Problem Mixed hyperlipidemia E78.2 Active 938436310 Problem 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 Active 813758229 Problem Unspecified mood [affective] disorder F39 Active 508152418 Problem Other stimulant dependence, 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 Active 230378253 Problem Marijuana abuse F12.10 Active 3734 4009 Problem Drug-induced erectile dysfunction N52.2 Active 944166186 Problem Cannabis dependence, uncomplicated F12.20 Active 03973414 Problem Wheezing R06.2 Active 43842388 Problem Psychophysiological insomnia F51.04 A ctive 601864731 Problem Pure hypercholesterolemia E78.00 Acti ve 168314321 Problem Anxiety F41.9 Active 07588321 Problem Idiopathic peripheral neuropathy G60.9 Active 56087503 Problem Polydipsia R63.1 Active 85178176 Problem Low back pain M54.5 Active 053313 005 Problem Essential hypertension I10 Active 55794779 Problem Pain in right knee M25.561 Active 3 [id number] Problem Mood disorder F39 Active 045675 05 Problem Other chronic pain G89.29 Active 8 8751509 Problem Primary osteoarthritis of left hip M16.12 Active [id number] ALLERGIES No Information ENCOUNTERS Encounter Location Date Diagnosis [facility] [address] [facility] [id number] [address] [place] [address] Feb, [facility] [address] [facility] [id number] [address] [place] [phone] Feb, [facility] [address] [facility] [id number] [address] [place] [phone] Jan, [facility] [address] [facility] [id number] [address] [place] [phone] Jan, [facility] [address] [facility] [id number] [address] [place] [address] Jan, Polydipsia R63.1 ; Periphera l edema R60.9 ; Pre-diabetes R73.03 and Tongue lesion K14.8 [place] [address] [facility] [id number] [address] [place] [phone] Sep, Other chronic pain G89.29 [place] [address] [facility] [id number] [address] [place] [phone] Sep, Acute low back pain, unspeci fied back pain laterality, with sciatica presence unspecified M54.5 [place] [address] [facility] [id number] [address] [place] [address] Sep, Low vitamin D level R79.89 [place] [address] [facility] [id number] [address] [place] [address] Aug, Acute low back pain, unspeci fied back pain laterality, with sciatica presence unspecified M54.5 and Primary osteoarthritis of left hip M16.12 [facility] [address] [facility] [id number] [address] [place] [phone] Aug, [facility] [address] [facility] [id number] [address] [place] [phone] Jun, [place] [address] [facility] [id number] [address] [place] [address] Jun, Other chronic pain G89.29 an d Pain in right knee M25.561 [place] [address] [facility] [id number] [address] [place] [address] May, Primary osteoarthritis of le ft hip M16.12 ; Pain in left hip M25.552 ; Other acute postprocedural pain G89.18 and Anxiety F41.9 [facility] [address] [id number] [address] [place] [phone] May, [facility] [address] [id number] [address] [place] [address] Apr, Pain in right knee M25.561 a nd Mood disorder F39 [facility] [address] [id number] [address] [place] [phone] Apr, [facility] [address] [id number] [address] [place] [id number] March, [facility] [address] [id number] [place] [address] [id number] March, Encounter for dental exam an d cleaning w/o abnormal findings Z01.20 [facility] [address] [id number] [address] [place] [id number] March, Dental examination Z01.20 [facility] [address] [id number] [place] [address] [id number] March, Dental examination Z01.20 [facility] [address] [id number] [address] [place] [phone] March, [facility] [address] [id number] [address] [place] [phone] March, [facility] [address] [id number] [address] [place] [phone] Feb, [facility] [address] [id number] [address] [place] [phone] Feb, Primary osteoarthritis of le ft hip M16.12 [facility] [address] [id number] [address] [place] [address] Feb, Other chronic pain G89.29 an d Pain in left hip M25.552 [facility] [address] [id number] [address] [place] [phone] Feb, Acute pain of left hip M25.5 52 [facility] [address] [id number] [address] [place] [address] Feb, Mood disorder F39 and Pain i n right knee M25.561 [facility] [address] [id number] [address] [place] [phone] Jan, Other chronic pain G89.29 [facility] [address] [id number] [address] [place] [phone] Jan, Mood disorder F39 [facility] [address] [id number] [address] [place] [phone] Jan, Pain in right knee M25.561 [facility] [address] [id number] [address] [place] [phone] Jan, Pain in left hip M25.552 and Other chronic pain G89.29 [facility] [address] [id number] [address] [place] [address] Jan, Acute pain of left hip M25.5 52 [facility] [address] [facility] [id number] [address] [place] [address] Jan, Acute pain of left hip M25.5 52 [facility] [address] [id number] [address] [place] [phone] Jan, Mood disorder F39 and Acute pain of left hip M25.552 [facility] [address] [id number] [address] [place] [phone] Nov, Mood disorder F39 [facility] [address] [facility] [id number] [address] [place] [address] Oct, Essential hypertension I10 ; Mixed hyperlipidemia E78.2 and Low back pain M54.5 [facility] [id number] [id number] May, [place] [address] [phone] Apr, Essential hypertension I10 ; Anger R45.4 ; Mixed hyperlipidemia E78.2 ; Drug-induced erectile dysfunction N52.2 ; Gastroesophageal reflux disease with esophagitis K21.0 ; Pure hypercholesterolemia E78.00 ; Pain in right knee M25.561 ; Psychophysiological insomnia F51.04 and Wheezing R06.2 [place] [address] [address] March, Hx of cervical spine surgery Z98.89 [place] [address] [address] March, [place] [address] [address] Feb, Anxiety associated with depr ession F41.8 [place] [address] [address] Jan, Anxiety associated with depr ession F41.8 [place] [address] [address] Dec, [place] [address] [address] Dec, [place] [address] [address] Dec, Essential hypertension I10 ; Erectile dysfunction, unspecified erectile dysfunction type N52.9 and Hyperlipemia E78.5 [place] [address] [place] [id number] [place] [address] Nov, Essential hypertension I10 ; Hx of cervical spine surgery Z98.89 ; Erectile dysfunction, unspecified erectile dysfunction type N52.9 ; Idiopathic peripheral neuropathy G60.9 ; Anger R45.4 ; Anxiety associated with depression F41.8 ; Hyperlipemia E78.5 ; Wheezing R06.2 and Has daytime drowsiness R40.0 [place] [address] [address] Nov, [facility] [address] [facility] [id number] [address] [place] [phone] Nov, [facility] [address] [facility] [id number] [address] [place] [phone] Sep, [facility] [address] [facility] [id number] [address] [place] [phone] Sep, Acute midline low back pain without sciatica M54.5 [facility] [address] [facility] [id number] [address] [place] [phone] Sep, Acute bilateral low back ekta n without sciatica M54.5 [facility] [address] [place] [id number] [address] [place] [phone] Aug, [facility] [address] [place] [id number] [address] [place] [phone] Jun, Wheezing R06.2 ; Candidal de rmatitis B37.2 ; Essential hypertension I10 ; Erectile dysfunction, unspecified erectile dysfunction type N52.9 ; Idiopathic peripheral neuropathy G60.9 ; Mixed hyperlipidemia E78.2 and Other stimulant dependence, 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 [facility] [address] [place] [id number] [address] [place] [phone] March, Essential hypertension I10 ; Hx of cervical spine surgery Z98.89 ; Idiopathic peripheral neuropathy G60.9 ; Mixed hyperlipidemia E78.2 ; Anger R45.4 ; Drug-induced erectile dysfunction N52.2 and Gastroesophageal reflux disease with esophagitis K21.0 [facility] [address] [facility] [id number] [address] [place] [phone] Feb, [facility] [address] [place] [id number] [address] [place] [phone] Dec, Low back pain M54.5 [facility] [address] [facility] [id number] [address] [place] [phone] Dec, [facility] [address] [place] [id number] [place] [phone] Dec, Essential hypertension I10 ; Hyperlipemia E78.5 ; Erectile dysfunction, unspecified erectile dysfunction type N52.9 ; Anger R45.4 ; Mixed hyperlipidemia E78.2 ; Anxiety associated with depression F41.8 ; Elevated serum creatinine R79.89 ; 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 and Marijuana abuse F12.10 [place] [address] [place] [address] Dec, Unspecified mood [affective] disorder F39 ; Anxiety disorder, unspecified F41.9 ; Other stimulant dependence, 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 and Cannabis dependence, uncomplicated F12.20 [place] [address] [place] [id number] [address] [place] [address] Oct, Essential hypertension I10 ; Idiopathic peripheral neuropathy G60.9 ; Low back pain M54.5 ; Hx of cervical spine surgery Z98.89 ; Erectile dysfunction, unspecified erectile dysfunction type N52.9 ; Anger R45.4 ; Mixed hyperlipidemia E78.2 and Anxiety associated with depression F41.8 [place] [address] [place] [phone] Oct, Unspecified mood [affective] disorder F39 and Anxiety disorder, unspecified F41.9 [place] [address] [place] [id number] [address] [place] [phone] Oct, Hyperlipemia E78.5 [place] [address] [place] [id number] [address] [place] [phone] Oct, Essential hypertension I10 [place] [address] [place] [id number] [address] [place] [address] Oct, [place] [address] [place] [id number] [address] [place] [address] Oct, Essential hypertension I10 ; Idiopathic peripheral neuropathy G60.9 ; Low back pain M54.5 ; Hx of cervical spine surgery Z98.89 ; Pain in right hand M79.641 ; Pain of left hand M79.642 ; Pain in left foot M79.672 ; Pain in right foot M79.671 ; Erectile dysfunction, unspecified erectile dysfunction type N52.9 and Anger R45.4 [facility] [address] [id number] [address] [place] [phone] Sep, [facility] [address] [id number] [address] [place] [phone] Jul, [facility] [address] [id number] [address] [place] [phone] Jun, [facility] [address] [id number] [address] [place] [phone] May, [facility] [address] [id number] [address] [place] [phone] Apr, [facility] [address] [id number] [address] [place] [phone] March, [facility] [address] [id number] [address] [place] [phone] Feb, [facility] [address] [id number] [address] [place] [phone] Feb, [facility] [address] [id number] [address] [place] [phone] Jan, [facility] [address] [id number] [address] [place] [phone] Jan, [facility] [address] [id number] [address] [place] [phone] Nov, [facility] [address] [id number] [address] [place] [phone] Nov, [facility] [address] [id number] [address] [place] [phone] Nov, [facility] [address] [id number] [address] [place] [phone] Nov, [facility] [address] [id number] [address] [place] [phone] Nov, [facility] [address] [id number] [address] [place] [address], [place] [address] Nov, [facility] [address] [id number] [address] [place] [address], [place] [address] Oct, [facility] [address] [id number] [address] [place] [address], [place] [address] Oct, [facility] [address] [id number] [address] [place] [address], [place] [address] Oct, [facility] [address] [id number] [address] [place] [address], [place] [address] Oct, [facility] [address] [id number] [address] [place] [address], [place] [address] Sep, [facility] [address] [id number] [address] [place] [address], [place] [address] Sep, [facility] [address] [id number] [address] [place] [address], [place] [address] Sep, [facility] [address] [id number] [address] [place] [address], [place] [address] Sep, [facility] [address] [id number] [address] [place] [address], [place] [address] Sep, [facility] [address] [id number] [address] [place] [address], [place] [address] 16 Aug, 2014 [facility] [address] [id number] [address] [place] [id number] 16 Aug, 2014 [facility] [address] [id number] [address] [place] [address], [place] [address] 15 Aug, 2014 [facility] [address] [id number] [address] [place] [address], [place] [address] 15 Aug, 2014 [facility] [address] [id number] [address] [place] [address], [place] [address] 15 Aug, 2014 [facility] [address] [id number] [address] [place] [address], [place] [address] 15 Aug, 2014 [facility] [address] [id number] [address] [place] [address], [place] [address] 13 Aug, 2014 [facility] [address] [id number] [address] [place] [address], [place] [address] Aug, [facility] [address] [id number] [address] [place] [address], [place] [address] Aug, [facility] [address] [id number] [address] [place] [address], [place] [address] Aug, [facility] [address] [id number] [address] [place] [address], [place] [address] Aug, [facility] [address] [id number] [address] [place] [address], [place] [address] Jul, [facility] [address] [id number] [address] [place] [address], [place] [address] Jul, [facility] [address] [id number] [address] [place] [address], [place] [id number] 18 Jul, 2014 [facility] [address] [id number] [address] [place] [address], [place] [address] Jul, [facility] [address] [id number] [address] [place] [address], [place] [address] Jun, [facility] [address] [id number] [address] [place] [address], [place] [address] Jun, [facility] [address] [id number] [address] [place] [address], [place] [address] Jun, [facility] [address] [id number] [address] [place] [address], [place] [address] Jun, [facility] [address] [id number] [address] [place] [address], [place] [address] Jun, [facility] [address] [id number] [address] [place] [address], [place] [address] Jun, [facility] [address] [id number] [address] [place] [address], [place] [address] May, [facility] [address] [id number] [address] [place] [address], [place] [address] May, [facility] [address] [id number] [address] [place] [address], [place] [address] May, [facility] [address] [id number] [address] [place] [address], [place] [address] May, [facility] [address] [id number] [address] [place] [address], [place] [id number] May, [facility] [address] [id number] [address] [place] [address], [place] [address] May, [facility] [address] [id number] [address] [place] [address], [place] [address] May, [facility] [address] [id number] [address] [place] [address], [place] [address] May, [facility] [address] [id number] [address] [place] [address], [place] [address] May, [facility] [address] [id number] [address] [place] [address], [place] [address] May, [facility] [address] [id number] [address] [place] [address], [place] [address] May, [facility] [address] [id number] [address] [place] [address], [place] [address] May, [facility] [address] [id number] [address] [place] [address], [place] [address] Apr, [facility] [address] [id number] [address] [place] [address], [place] [address] Apr, [facility] [address] [id number] [address] [place] [address], [place] [address] March, [facility] [address] [id number] [address] [place] [address], [place] [address] March, [facility] [address] [id number] [address] [place] [address], [place] [address] March, [facility] [address] [id number] [address] [place] [address], [place] [address] March, [facility] [address] [id number] [address] [place] [address], [place] [address] Feb, [facility] [address] [id number] [address] [place] [address], [place] [address] Feb, [facility] [address] [id number] [address] [place] [address], [place] [address] Jan, [facility] [address] [id number] [address] [place] [address], [place] [address] Jan, [facility] [address] [id number] [address] [place] [address], [place] [address] Jan, [facility] [address] [id number] [address] [place] [address], [place] [id number] Jan, [facility] [address] [id number] [address] [place] [address], [place] [id number] Dec, [facility] [address] [id number] [address] [place] [address], [place] [id number] Dec, [facility] [address] [id number] [address] [place] [address], [place] [id number] Nov, [facility] [address] [id number] [address] [place] [address], [place] [id number] Nov, [facility] [address] [id number] [address] [place] [address], [place] [id number] Nov, [facility] [address] [id number] [address] [place] [address], [place] [id number] Nov, [facility] [address] [id number] [address] [place] [address], [place] [id number] Oct, [facility] [address] [id number] [address] [place] [address], [place] [id number] 10 Oct, 2013 [facility] [address] [id number] [address] [place] [address], [place] [id number] Sep, [facility] [address] [id number] [address] [place] [address], [place] [id number] Sep, [facility] [address] [id number] [address] [place] [address], [place] [id number] Jul, [facility] [address] [id number] [address] [place] [address], [place] [id number] Jul, [facility] [address] [id number] [address] [place] [address], [place] [id number] Jul, [facility] [address] [id number] [address] [place] [address], [place] [id number] Jun, [facility] [address] [id number] [address] [place] [address], [place] [id number] Jun, [facility] [address] [id number] [address] [place] [address], [place] [id number] May, [facility] [address] [id number] [address] [place] [address], [place] [id number] May, [facility] [address] [id number] [address] [place] [address], [place] [id number] May, [facility] [address] [id number] [address] [place] [address], [place] [id number] March, [facility] [address] [id number] [address] [place] [address], [place] [id number] Jan, [facility] [address] [id number] [address] [place] [address], [place] [id number] Jan, [facility] [address] [id number] [address] [place] [address], [place] [id number] Jan, [facility] [address] [id number] [address] [place] [address], [place] [id number] Dec, [facility] [address] [id number] [address] [place] [id number] May, [facility] [address] [id number] [address] [place] [id number] March, [facility] [address] [id number] [address] [place] [id number] Jan, [facility] [address] [id number] 05 [place] [phone] Aug, [facility] [address] [id number] [address] [place] [phone] Aug, [facility] [address] [id number] [address] [place] [phone] Aug, [facility] [address] [id number] [address] [place] [id number] Jun, [facility] [address] [id number] [address] [place] [phone] May, [facility] [address] [id number] [address] [place] [phone] Oct, IMMUNIZATIONS No Known Immunizations SOCIAL HISTORY Never Assessed REASON FOR VISIT [facility] [place], [place] PLAN OF CARE VITAL SIGNS MEDICATIONS Unknown [...]
--- OUTSIDE RECORDS SUMMARY | 2020-02-05 11:02 | XMS REPORT ---
Author Author Jelani Arambula Doctor Organization [facility] Address Unknown Phone Unavailable Care Team Providers Care Director Index Name Role Phone Migration, Doctor Unavailable Unavailable PROBLEMS Type Condition ICD9-CM Code [id number] Code Onset Dates Condition S tatus SNOMED Code Problem Anger R45.4 Active 60485177 Problem Hx of cervical spine surgery Z98.89 A ctive 439787238 Problem Pain in right foot M79.671 Active 4 3362540 Problem Erectile dysfunction, unspecified erectile dysfunction typ e N52.9 Active 695701607 Problem Candidal dermatitis B37.2 Active 54385136 Problem Gastroesophageal reflux disease with esophagitis K 21.0 Active 648554647 Problem Anxiety disorder, unspecified F41.9 Active 033513685 Problem Mixed hyperlipidemia E78.2 Active 160978187 Problem 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 Active 609681023 Problem Unspecified mood [affective] disorder F39 Active 638378997 Problem Other stimulant dependence, 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 Active 851448211 Problem Marijuana abuse F12.10 Active 3734 4009 Problem Drug-induced erectile dysfunction N52.2 Active 966095343 Problem Cannabis dependence, uncomplicated F12.20 Active 29772983 Problem Wheezing R06.2 Active 59729497 Problem Psychophysiological insomnia F51.04 A ctive 473406630 Problem Pure hypercholesterolemia E78.00 Acti ve 777973275 Problem Anxiety F41.9 Active 98281796 Problem Idiopathic peripheral neuropathy G60.9 Active 79823924 Problem Polydipsia R63.1 Active 34445403 Problem Low back pain M54.5 Active 582369 005 Problem Essential hypertension I10 Active 40550064 Problem Pain in right knee M25.561 Active 3 [id number] Problem Mood disorder F39 Active 451321 05 Problem Other chronic pain G89.29 Active 8 6118737 Problem Primary osteoarthritis of left hip M16.12 Active 974057399 ALLERGIES No Information ENCOUNTERS Encounter Location Date Diagnosis [facility] [address] [facility] [id number] [address] [place] [address] Feb, [facility] [address] [facility] [id number] [address] [place] [phone] Feb, [facility] [address] [facility] [id number] [address] [place] [id number] Jan, [facility] [address] [facility] [id number] [address] [place] [phone] Jan, [facility] [address] [facility] [id number] [address] [place] [address] Jan, Polydipsia R63.1 ; Periphera l edema R60.9 ; Pre-diabetes R73.03 and Tongue lesion K14.8 [place] [address] [facility] [id number] [address] [place] [phone] Sep, Other chronic pain G89.29 [place] [address] [facility] [id number] [address] [place] [phone] Sep, Acute low back pain, unspeci fied back pain laterality, with sciatica presence unspecified M54.5 [place] [address] [facility] [id number] [address] [place] [id number] Sep, Low vitamin D level R79.89 [place] [address] [facility] [id number] [address] [place] [id number] Aug, Acute low back pain, unspeci fied back pain laterality, with sciatica presence unspecified M54.5 and Primary osteoarthritis of left hip M16.12 [facility] [address] [facility] [id number] [address] [place] [id number] Aug, [facility] [address] [facility] [id number] [address] [place] [id number] Jun, [place] [address] [facility] [id number] [address] [place] [id number] Jun, Other chronic pain G89.29 an d Pain in right knee M25.561 [place] [address] [facility] [id number] [address] [place] [id number] May, Primary osteoarthritis of le ft hip M16.12 ; Pain in left hip M25.552 ; Other acute postprocedural pain G89.18 and Anxiety F41.9 [facility] [address] [id number] [address] [place] [id number] May, [facility] [address] [id number] [address] [place] [address] Apr, Pain in right knee M25.561 a nd Mood disorder F39 [facility] [address] [id number] [address] [place] [id number] Apr, [facility] [address] [id number] [address] [place] [id number] March, [facility] [address] [id number] [place] [id number] March, Encounter for dental exam an d cleaning w/o abnormal findings Z01.20 [facility] [address] [id number] [address] [place] [id number] March, Dental examination Z01.20 [facility] [address] [id number] [place] [address] [id number] March, Dental examination Z01.20 [facility] [address] [id number] [address] [place] [id number] March, [facility] [address] [id number] [address] [place] [id number] March, [facility] [address] [id number] [address] [place] [id number] Feb, [facility] [address] [id number] [address] [place] [id number] Feb, Primary osteoarthritis of le ft hip M16.12 [facility] [address] [id number] [address] [place] [id number] Feb, Other chronic pain G89.29 an d Pain in left hip M25.552 [facility] [address] [id number] [address] [place] [id number] Feb, Acute pain of left hip M25.5 52 [facility] [address] [id number] [address] [place] [id number] Feb, Mood disorder F39 and Pain i n right knee M25.561 [facility] [address] [id number] [address] [place] [id number] Jan, Other chronic pain G89.29 [facility] [address] [id number] [address] [place] [id number] Jan, Mood disorder F39 [facility] [address] [id number] [address] [place] [id number] Jan, Pain in right knee M25.561 [facility] [address] [id number] [address] [place] [id number] Jan, Pain in left hip M25.552 and Other chronic pain G89.29 [facility] [address] [id number] [address] [place] [id number] Jan, Acute pain of left hip M25.5 52 [facility] [address] [facility] [id number] [address] [place] [id number] Jan, Acute pain of left hip M25.5 52 [facility] [address] [id number] [address] [place] [id number] Jan, Mood disorder F39 and Acute pain of left hip M25.552 [facility] [address] [id number] [address] [place] [phone] Nov, Mood disorder F39 [facility] [address] [facility] [id number] [address] [place] [id number] Oct, Essential hypertension I10 ; Mixed hyperlipidemia E78.2 and Low back pain M54.5 [facility] [address] [id number] [id number] May, [place] [address] [address] Apr, Essential hypertension I10 ; Anger R45.4 ; Mixed hyperlipidemia E78.2 ; Drug-induced erectile dysfunction N52.2 ; Gastroesophageal reflux disease with esophagitis K21.0 ; Pure hypercholesterolemia E78.00 ; Pain in right knee M25.561 ; Psychophysiological insomnia F51.04 and Wheezing R06.2 [place] [address] [address] March, Hx of cervical spine surgery Z98.89 [place] [address] [id number] March, [place] [address] [id number] Feb, Anxiety associated with depr ession F41.8 [place] [address] [address] Jan, Anxiety associated with depr ession F41.8 [place] [address] [address] Dec, [place] [address] [address] Dec, [place] [address] [address] Dec, Essential hypertension I10 ; Erectile dysfunction, unspecified erectile dysfunction type N52.9 and Hyperlipemia E78.5 [place] [address] [place] [id number] [place] [address] Nov, Essential hypertension I10 ; Hx of cervical spine surgery Z98.89 ; Erectile dysfunction, unspecified erectile dysfunction type N52.9 ; Idiopathic peripheral neuropathy G60.9 ; Anger R45.4 ; Anxiety associated with depression F41.8 ; Hyperlipemia E78.5 ; Wheezing R06.2 and Has daytime drowsiness R40.0 [place] [address] [id number] Nov, [facility] [address] [facility] [id number] [address] [place] [id number] Nov, [facility] [address] [facility] [id number] [address] [place] [phone] Sep, [facility] [address] [facility] [id number] [address] [place] [id number] Sep, Acute midline low back pain without sciatica M54.5 [facility] [address] [facility] [id number] [address] [place] [phone] Sep, Acute bilateral low back ekta n without sciatica M54.5 [facility] [address] [place] [id number] [address] [place] [phone] Aug, [facility] [address] [place] [id number] [address] [place] [id number] Jun, Wheezing R06.2 ; Candidal de rmatitis B37.2 ; Essential hypertension I10 ; Erectile dysfunction, unspecified erectile dysfunction type N52.9 ; Idiopathic peripheral neuropathy G60.9 ; Mixed hyperlipidemia E78.2 and Other stimulant dependence, 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 [facility] [address] [place] [id number] [address] [place] [id number] March, Essential hypertension I10 ; Hx of cervical spine surgery Z98.89 ; Idiopathic peripheral neuropathy G60.9 ; Mixed hyperlipidemia E78.2 ; Anger R45.4 ; Drug-induced erectile dysfunction N52.2 and Gastroesophageal reflux disease with esophagitis K21.0 [facility] [address] [facility] [id number] [address] [place] [id number] Feb, [facility] [address] [place] [id number] [address] [place] [phone] Dec, Low back pain M54.5 [facility] [address] [facility] [id number] [address] [place] [phone] Dec, [facility] [address] [place] [id number] [place] [phone] Dec, Unspecified mood [affective] disorder F39 ; Anxiety disorder, unspecified F41.9 ; Other stimulant dependence, 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 and Cannabis dependence, uncomplicated F12.20 [place] [address] [place] [id number] [address] [place] [phone] Dec, Essential hypertension I10 ; Hyperlipemia E78.5 ; Erectile dysfunction, unspecified erectile dysfunction type N52.9 ; Anger R45.4 ; Mixed hyperlipidemia E78.2 ; Anxiety associated with depression F41.8 ; Elevated serum creatinine R79.89 ; 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 and Marijuana abuse F12.10 [place] [address] [place] [id number] [address] [place] [id number] Oct, Essential hypertension I10 ; Idiopathic peripheral neuropathy G60.9 ; Low back pain M54.5 ; Hx of cervical spine surgery Z98.89 ; Erectile dysfunction, unspecified erectile dysfunction type N52.9 ; Anger R45.4 ; Mixed hyperlipidemia E78.2 and Anxiety associated with depression F41.8 [place] [address] [place] [id number] [address] [place] [id number] Oct, Unspecified mood [affective] disorder F39 and Anxiety disorder, unspecified F41.9 [place] [address] [place] [id number] [address] [place] [phone] Oct, Hyperlipemia E78.5 [place] [id number] [place] [phone] Oct, Essential hypertension I10 [place] [address] [place] [id number] [address] [place] [id number] Oct, [place] [address] [address] Oct, Essential hypertension I10 ; Idiopathic peripheral neuropathy G60.9 ; Low back pain M54.5 ; Hx of cervical spine surgery Z98.89 ; Pain in right hand M79.641 ; Pain of left hand M79.642 ; Pain in left foot M79.672 ; Pain in right foot M79.671 ; Erectile dysfunction, unspecified erectile dysfunction type N52.9 and Anger R45.4 [facility] [address] [id number] [address] [place] [phone] Sep, [facility] [place] [address] [id number] [address] [place] [id number] Jul, [facility] [place] [address] [id number] [address] [place] [id number] Jun, [facility] [place] [address] [id number] [address] [place] [id number] May, [facility] [place] [address] [id number] [address] [place] [phone] Apr, [facility] [address] [id number] [address] [place] [phone] March, [facility] [address] [id number] [address] [place] [phone] Feb, [facility] [place] [address] [id number] [address] [place] [id number] Feb, [facility] [address] [id number] [address] [place] [phone] Jan, [facility] [address] [id number] [address] [place] [id number] Jan, [facility] [place] [address] [id number] [address] [place] [phone] Nov, [facility] [place] [address] [id number] [address] [place] [phone] Nov, [facility] [place] [address] [id number] [address] [place] [phone] Nov, [facility] [place] [address] [id number] [address] [place] [phone] Nov, [facility] [place] [address] [id number] [address] [place] [id number] Nov, [facility] [address] [id number] [address] [place] [address], [place] [address] Nov, [facility] [address] [id number] [address] [place] [address], [place] [address] Oct, [facility] [address] [id number] [address] [place] [address], [place] [address] Oct, [facility] [address] [id number] [address] [place] [address], [place] [address] Oct, [facility] [address] [id number] [address] [place] [address], [place] [address] Oct, [facility] [address] [id number] [address] [place] [address], [place] [address] Sep, [facility] [address] [id number] [address] [place] [address], [place] [address] Sep, [facility] [address] [id number] [address] [place] [address], [place] [address] Sep, [facility] [address] [id number] [address] [place] [address], [place] [address] Sep, [facility] [address] [id number] [address] [place] [address], [place] [address] Sep, [facility] [address] [id number] [address] [place] [address], [place] [address] 16 Aug, 2014 [facility] [address] [id number] [address] [place] [id number] 16 Aug, 2014 [facility] [address] [id number] [address] [place] [address], [place] [address] 15 Aug, 2014 [facility] [address] [id number] [address] [place] [address], [place] [address] 15 Aug, 2014 [facility] [address] [id number] [address] [place] [address], [place] [address] 15 Aug, 2014 [facility] [address] [id number] [address] [place] [address], [place] [address] 15 Aug, 2014 [facility] [address] [id number] [address] [place] [address], [place] [address] 13 Aug, 2014 [facility] [address] [id number] [address] [place] [address], [place] [address] Aug, [facility] [address] [id number] [address] [place] [address], [place] [address] Aug, [facility] [address] [id number] [address] [place] [address], [place] [address] Aug, [facility] [address] [id number] [address] [place] [address], [place] [address] Aug, [facility] [address] [id number] [address] [place] [address], [place] [address] Jul, [facility] [address] [id number] [address] [place] [address], [place] [address] Jul, [facility] [address] [id number] [address] [place] [address], [place] [address] 18 Jul, 2014 [facility] [address] [id number] [address] [place] [address], [place] [address] Jul, [facility] [address] [id number] [address] [place] [address], [place] [address] Jun, [facility] [address] [id number] [address] [place] [address], [place] [address] Jun, [facility] [address] [id number] [address] [place] [address], [place] [address] Jun, [facility] [address] [id number] [address] [place] [address], [place] [address] Jun, [facility] [address] [id number] [address] [place] [address], [place] [address] Jun, [facility] [address] [id number] [address] [place] [address], [place] [address] Jun, [facility] [address] [id number] [address] [place] [address], [place] [address] May, [facility] [address] [id number] [address] [place] [address], [place] [address] May, [facility] [address] [id number] [address] [place] [address], [place] [address] May, [facility] [address] [id number] [address] [place] [address], [place] [address] May, [facility] [address] [id number] [address] [place] [address], [place] [id number] May, [facility] [address] [id number] [address] [place] [address], [place] [address] May, [facility] [address] [id number] [address] [place] [address], [place] [address] May, [facility] [address] [id number] [address] [place] [address], [place] [address] May, [facility] [address] [id number] [address] [place] [address], [place] [address] May, [facility] [address] [id number] [address] [place] [address], [place] [address] May, [facility] [address] [id number] [address] [place] [address], [place] [address] May, [facility] [address] [id number] [address] [place] [address], [place] [address] May, [facility] [address] [id number] [address] [place] [address], [place] [address] Apr, [facility] [address] [id number] [address] [place] [address], [place] [address] Apr, [facility] [address] [id number] [address] [place] [address], [place] [address] March, [facility] [address] [id number] [address] [place] [address], [place] [address] March, [facility] [address] [id number] [address] [place] [address], [place] [address] March, [facility] [address] [id number] [address] [place] [address], [place] [address] March, [facility] [address] [id number] [address] [place] [address], [place] [address] Feb, [facility] [address] [id number] [address] [place] [address], [place] [address] Feb, [facility] [address] [id number] [address] [place] [address], [place] [address] Jan, [facility] [address] [id number] [address] [place] [address], [place] [address] Jan, [facility] [address] [id number] [address] [place] [address], [place] [address] Jan, [facility] [address] [id number] [address] [place] [address], [place] [address] Jan, [facility] [address] [id number] [address] [place] [address], [place] [address] Dec, [facility] [address] [id number] [address] [place] [address], [place] [address] Dec, [facility] [address] [id number] [address] [place] [address], [place] [address] Nov, [facility] [address] [id number] [address] [place] [address], [place] [address] Nov, [facility] [address] [id number] [address] [place] [address], [place] [address] Nov, [facility] [address] [id number] [address] [place] [address], [place] [address] Nov, [facility] [address] [id number] [address] [place] [address], [place] [address] Oct, [facility] [address] [id number] [address] [place] [address], [place] [address] 10 Oct, 2013 [facility] [address] [id number] [address] [place] [address], [place] [address] Sep, [facility] [address] [id number] [address] [place] [address], [place] [address] Sep, [facility] [address] [id number] [address] [place] [address], [place] [address] Jul, [facility] [address] [id number] [address] [place] [address], [place] [address] Jul, [facility] [address] [id number] [address] [place] [address], [place] [address] Jul, [facility] [address] [id number] [address] [place] [address], [place] [address] Jun, [facility] [address] [id number] [address] [place] [address], [place] [address] Jun, [facility] [address] [id number] [address] [place] [address], [place] [address] May, [facility] [address] [id number] [address] [place] [address], [place] [address] May, [facility] [address] [id number] [address] [place] [address], [place] [address] May, [facility] [address] [id number] [address] [place] [address], [place] [address] March, [facility] [address] [id number] [address] [place] [address], [place] [address] Jan, [facility] [address] [id number] [address] [place] [address], [place] [address] Jan, [facility] [address] [id number] [address] [place] [address], [place] [address] Jan, [facility] [address] [id number] [address] [place] [address], [place] [address] Dec, [facility] [address] [id number] [address] [place] [id number] May, [facility] [address] [id number] [address] [place] [id number] March, [facility] [address] [id number] [address] [place] [id number] Jan, [facility] [address] [id number] [address] [place] [id number] Aug, [facility] [address] [id number] [address] [place] [id number] Aug, [facility] [address] [id number] [address] [place] [id number] Aug, [facility] [address] [id number] [address] [place] [id number] Jun, [facility] [address] [id number] [address] [place] [id number] May, [facility] [address] [id number] [address] [place] [id number] Oct, IMMUNIZATIONS No Known Immunizations SOCIAL HISTORY Never Assessed REASON FOR VISIT [facility] PLAN OF CARE VITAL SIGNS MEDICATIONS Medication Instructions Dosage Frequency Start Date End Date Duration S tatus Hydrocodone-Acetaminophen 5-325 mg 1 tablet by Oral ro aries every 6 hours PRN Aug, Active Diclofenac Sodium 75 mg 1 tablet by Oral route 2 times per day PRN Repository Nov, Active PredniSONE 20 mg 2 tablet by Oral route 1 time per day for 5 day(s) May, Active cyclobenzaprine 10 mg 1 Tablet by Po route 3 times per day for muscle spasm Jan, Active Bactrim DS 800-160 mg 1 tablet by Oral route 2 times p er day for 10 day(s) Jul, Active RESULTS No Results PROCEDURES No Known procedures [...]
--- OUTSIDE RECORDS SUMMARY | 2020-02-05 11:02 | XMS REPORT ---
Author Author Jelani ESPARZA Organization [facility] Address [address] [place] [address] Care Team Providers Care Group Segment Consultant Name Role Phone JAYME ESPARZA Unavailable PROBLEMS Type Condition ICD9-CM Code ORQ31-WX Code Onset Dates Condition S tatus SNOMED Code Problem Hx of cervical spine surgery Z98.89 A ctive 451389625 Problem Drug-induced erectile dysfunction N52.2 Active 562035104 Problem Anger R45.4 Active 75134258 Problem Gastroesophageal reflux disease with esophagitis K 21.0 Active 661476337 Problem Erectile dysfunction, unspecified erectile dysfunction typ e N52.9 Active 187109133 Problem Candidal dermatitis B37.2 Active 59626890 Problem Psychophysiological insomnia F51.04 A ctive 217747610 Problem Wheezing R06.2 Active 38926433 Problem Anxiety F41.9 Active 50108235 Problem Primary osteoarthritis of left hip M16.12 Active 974653799 Problem Idiopathic peripheral neuropathy G60.9 Active 77884895 Problem Low back pain M54.5 Active 392465 005 Problem Pain in right foot M79.671 Active 4 0155543 Problem Pain in right knee M25.561 Active 3 01644519618010 Problem Pure hypercholesterolemia E78.00 Acti ve 804132110 Problem Other chronic pain G89.29 Active 8 6699201 Problem Mood disorder F39 Active 987792 05 Problem Anxiety disorder, unspecified F41.9 Active 378759058 Problem Unspecified mood [affective] disorder F39 Active 115909554 Problem Essential hypertension I10 Active 40027757 Problem Mixed hyperlipidemia E78.2 Active 746227318 Problem Other stimulant dependence, 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5 [facility] [address] [id number] [address] [place] [address] Sep, Low vitamin D level R79.89 [facility] [address] [id number] [address] [place] [address] Aug, Acute low back pain, unspeci fied back pain laterality, with sciatica presence unspecified M54.5 and Primary osteoarthritis of left hip M16.12 [facility] [address] [id number] [address] [place] [address] Aug, [place] [address] [id number] [address] [place] [address] Jun, [facility] [address] [id number] [address] [place] [address] Jun, Other chronic pain G89.29 an d Pain in right knee M25.561 [facility] [address] [id number] [address] [place] [address] May, Primary osteoarthritis of le ft hip M16.12 ; Pain in left hip M25.552 ; Other acute postprocedural pain G89.18 and Anxiety F41.9 [facility] [address] [id number] [address] [place] [address] May, [facility] [address] [id number] [address] [place] [address] Apr, Pain in right knee M25.561 a nd Mood disorder F39 [facility] [address] [id number] [address] [place] [address] Apr, [facility] [address] [id number] [address] [place] [id number] March, [facility] [address] [id number] [address] [place] [address] [id number] March, Encounter for dental exam an d cleaning w/o abnormal findings Z01.20 [facility] [address] [id number] [address] [place] [id number] March, Dental examination Z01.20 [facility] [address] [id number] [address] [place] [address] [id number] March, Dental examination Z01.20 [facility] [address] [id number] [address] [place] [address] March, [facility] [address] [id number] [address] [place] [address] March, [facility] [address] [id number] [address] [place] [address] Feb, [facility] [address] [id number] [address] [place] [address] Feb, Primary osteoarthritis of le ft hip M16.12 [facility] [address] [id number] [address] [place] [address] Feb, Other chronic pain G89.29 an d Pain in left hip M25.552 [facility] [address] [id number] [address] [place] [address] Feb, Acute pain of left hip M25.5 52 [facility] [address] [id number] [address] [place] [address] Feb, Mood disorder F39 and Pain i n right knee M25.561 [facility] [address] [id number] [address] [place] [address] Jan, Other chronic pain G89.29 [facility] [address] [id number] [address] [place] [address] Jan, Mood disorder F39 [facility] [address] [id number] [address] [place] [address] Jan, Pain in right knee M25.561 [facility] [address] [facility] [id number] [address] [place] [address] Jan, Pain in left hip M25.552 and Other chronic pain G89.29 [facility] [address] [place] [id number] [address] [place] [address] Jan, Acute pain of left hip M25.5 [address] [place] [address] [place] [id number] [place] [address] Jan, Acute pain of left hip M25.5 [address] [place] [address] [place] [id number] [place] [address] Jan, Mood disorder F39 and Acute pain of left hip M25.552 [place] [address] [address] Nov, Mood disorder F39 [place] [address] [place] [id number] [place] [address] Oct, Essential hypertension I10 ; Mixed hyperlipidemia E78.2 and Low back pain M54.5 [facility] [address] [place] [id number] [place] [address] [id number] May, [place] [address] [place] [id number] [address] [place] [address] Apr, Essential hypertension I10 ; Anger R45.4 ; Mixed hyperlipidemia E78.2 ; Drug-induced erectile dysfunction N52.2 ; Gastroesophageal reflux disease with esophagitis K21.0 ; Pure hypercholesterolemia E78.00 ; Pain in right knee M25.561 ; Psychophysiological insomnia F51.04 and Wheezing R06.2 [place] [address] [place] [id number] [address] [place] [address] March, Hx of cervical spine surgery Z98.89 [facility] [address] [address] March, [place] [address] [place] [address] [place] [address] Feb, Anxiety associated with depr ession F41.8 [facility] [address] [facility] [id number] [address] [place] [address] Jan, Anxiety associated with depr ession F41.8 [facility] [address] [place] [id number] [address] [place] [address] Dec, [facility] [address] [facility] [id number] [address] [place] [address] Dec, [facility] [address] [place] [id number] [address] [place] [address] Dec, Essential hypertension I10 ; Erectile dysfunction, unspecified erectile dysfunction type N52.9 and Hyperlipemia E78.5 [facility] [address] [address] Nov, Essential hypertension I10 ; Hx of cervical spine surgery Z98.89 ; Erectile dysfunction, unspecified erectile dysfunction type N52.9 ; Idiopathic peripheral neuropathy G60.9 ; Anger R45.4 ; Anxiety associated with depression F41.8 ; Hyperlipemia E78.5 ; Wheezing R06.2 and Has daytime drowsiness R40.0 [facility] [address] [place] [id number] [address] [place] [address] Nov, [facility] [address] [place] [id number] [address] [place] [address] Nov, [facility] [address] [place] [id number] [address] [place] [address] Sep, [facility] [address] [place] [id number] [address] [place] [address] Sep, Acute midline low back pain without sciatica M54.5 [facility] [address] [place] [id number] [address] [place] [address] Sep, Acute bilateral low back ekta n without sciatica M54.5 [facility] [address] [address] Aug, [place] [address] [address] Jun, Wheezing R06.2 ; Candidal de rmatitis B37.2 ; Essential hypertension I10 ; Erectile dysfunction, unspecified erectile dysfunction type N52.9 ; Idiopathic peripheral neuropathy G60.9 ; Mixed hyperlipidemia E78.2 and Other stimulant dependence, 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 [place] [address] [address] March, Essential hypertension I10 ; Hx of cervical spine surgery Z98.89 ; Idiopathic peripheral neuropathy G60.9 ; Mixed hyperlipidemia E78.2 ; Anger R45.4 ; Drug-induced erectile dysfunction N52.2 and Gastroesophageal reflux disease with esophagitis K21.0 [place] [address] [address] Feb, [place] [address] [address] Dec, Low back pain M54.[address] [address] Dec, [place] [address] [address] Dec, Essential hypertension I10 ; Hyperlipemia E78.5 ; Erectile dysfunction, unspecified erectile dysfunction type N52.9 ; Anger R45.4 ; Mixed hyperlipidemia E78.2 ; Anxiety associated with depression F41.8 ; Elevated serum creatinine R79.89 ; 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 and Marijuana abuse F12.[address] [address] Dec, Unspecified mood [affective] disorder F39 ; Anxiety disorder, unspecified F41.9 ; Other stimulant dependence, 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 and Cannabis dependence, uncomplicated F12.[address] [address] Oct, Essential hypertension I10 ; Idiopathic peripheral neuropathy G60.9 ; Low back pain M54.5 ; Hx of cervical spine surgery Z98.89 ; Erectile dysfunction, unspecified erectile dysfunction type N52.9 ; Anger R45.4 ; Mixed hyperlipidemia E78.2 and Anxiety associated with depression F41.8 [facility] [address] [place] [id number] [address] [place] [address] Oct, Unspecified mood [affective] disorder F39 and Anxiety disorder, unspecified F41.9 [facility] [address] [facility] [id number] [address] [place] [address] Oct, Hyperlipemia E78.5 [place] [address] [place] [id number] [place] [address] Oct, Essential hypertension I10 [place] [address] [place] [id number] [place] [address] Oct, [place] [address] [place] [id number] [place] [address] Oct, Essential hypertension I10 ; Idiopathic peripheral neuropathy G60.9 ; Low back pain M54.5 ; Hx of cervical spine surgery Z98.89 ; Pain in right hand M79.641 ; Pain of left hand M79.642 ; Pain in left foot M79.672 ; Pain in right foot M79.671 ; Erectile dysfunction, unspecified erectile dysfunction type N52.9 and Anger R45.4 [place] [address] [place] [id number] [address] [place] [address] Sep, [place] [address] [place] [id number] [address] [place] [address] Jul, [place] [address] [place] [id number] [address] [place] [address] Jun, [facility] [address] [facility] [id number] [address] [place] [address] May, [place] [address] [place] [id number] [address] [place] [address] Apr, [facility] [address] [id number] [address] [place] [address], [place] [address] March, [facility] [address] [id number] [address] [place] [address], [place] [address] Feb, [facility] [address] [id number] [address] [place] [address], [place] [address] Feb, [facility] [address] [id number] [address] [place] [address], [place] [address] Jan, [facility] [address] [id number] [address] [place] [address], [place] [address] Jan, [facility] [address] [id number] [address] [place] [address], [place] [address] Nov, [facility] [address] [id number] [address] [place] [address], [place] [address] Nov, [facility] [address] [id number] [address] [place] [address], [place] [address] Nov, [facility] [address] [id number] [address] [place] [address], [place] [address] Nov, [facility] [address] [id number] [address] [place] [address], [place] [address] Nov, [facility] [address] [id number] [address] [place] [address], [place] [address] Nov, [facility] [address] [id number] [address] [place] [address], [place] [address] Oct, [facility] [place] [facility] [address] [id number] [address] [place] [address], [place] [address] Oct, [facility] [place] [facility] [address] [id number] [address] [place] [address], [place] [address] Oct, [facility] [place] [facility] [address] [id number] [address] [place] [address], [place] [address] Oct, [facility] [address] [id number] [address] [place] [address], [place] [address] Sep, [facility] [address] [id number] [address] [place] [address], [place] [address] Sep, [facility] [address] [id number] [address] [place] [address], [place] [address] Sep, [facility] [address] [id number] [address] [place] [address], [place] [address] Sep, [facility] [address] [id number] [address] [place] [address], [place] [address] 10 Sep, 2014 [facility] [address] [id number] [address] [place] [address], [place] [address] 16 Aug, 2014 [facility] [address] [id number] [address] [place] [address], [place] [address] 16 Aug, 2014 [facility] [address] [id number] [address] [place] [address], [place] [address] 15 Aug, 2014 [facility] [address] [id number] [address] [place] [address], [place] [address] 15 Aug, 2014 [facility] [address] [id number] [address] [place] [address], [place] [address] 15 Aug, 2014 [facility] [address] [id number] [address] [place] [address], [place] [address] 15 Aug, 2014 [facility] [place] [facility] [address] [id number] [address] [place] [address], [place] [address] 13 Aug, 2014 [facility] [address] [id number] [address] [place] [address], [place] [address] 07 Aug, 2014 [facility] [place] [facility] [address] [id number] [address] [place] [address], [place] [address] 07 Aug, 2014 [facility] [place] [facility] [address] [id number] [address] [place] [address], [place] [address] 06 Aug, 2014 [facility] [place] [facility] [address] [id number] [address] [place] [address], [place] [address] Aug, [facility] [place] [facility] [address] [id number] [address] [place] [address], [place] [address] Jul, [facility] [address] [id number] [address] [place] [address], [place] [address] Jul, [facility] [address] [id number] [address] [place] [address], [place] [address] Jul, [facility] [place] [facility] [address] [id number] [address] [place] [address], [place] [address] Jul, [facility] [address] [id number] [address] [place] [address], [place] [address] Jun, [facility] [address] [id number] [address] [place] [address], [place] [address] Jun, [facility] [address] [id number] [address] [place] [address], [place] [address] Jun, [facility] [address] [id number] [address] [place] [address], [place] [address] Jun, [facility] [address] [id number] [address] [place] [address], [place] [address] Jun, [facility] [address] [id number] [address] [place] [address], [place] [address] Jun, [facility] [address] [id number] [address] [place] [address], [place] [address] May, [facility] [address] [id number] [address] [place] [address], [place] [address] May, [facility] [address] [id number] [address] [place] [address], [place] [address] May, [facility] [address] [id number] [address] [place] [address], [place] [address] May, [facility] [address] [id number] [address] [place] [id number] May, [facility] [address] [id number] [address] [place] [address], [place] [address] May, [facility] [address] [id number] [facility] [place] [address] May, [facility] [address] [id number] [address] [place] [address], [place] [address] May, [facility] [address] [id number] [address] [place] [address], [place] [address] May, [facility] [place] [facility] [address] [id number] [address] [place] [address], [place] [address] May, [facility] [address] [id number] [address] [place] [address], [place] [address] May, [facility] [address] [id number] [address] [place] [address], [place] [address] May, [facility] [address] [id number] [address] [place] [address], [place] [address] Apr, [facility] [address] [id number] [address] [place] [address], [place] [address] Apr, [facility] [address] [id number] [address] [place] [address], [place] [address] March, [facility] [address] [id number] [address] [place] [address], [place] [address] March, [facility] [address] [id number] [address] [place] [address], [place] [address] March, [facility] [place] [facility] [address] [id number] [address] [place] [address], [place] [address] March, [facility] [place] [facility] [address] [id number] [address] [place] [address], [place] [address] Feb, [facility] [place] [facility] [address] [id number] [address] [place] [address], [place] [address] Feb, [facility] [place] [facility] [address] [id number] [address] [place] [address], [place] [address] Jan, [facility] [place] [facility] [address] [id number] [address] [place] [address], [place] [address] Jan, [facility] [address] [id number] [address] [place] [address], [place] [address] Jan, [facility] [address] [id number] [address] [place] [address], [place] [address] Jan, [facility] [address] [id number] [address] [place] [address], [place] [address] Dec, [facility] [address] [id number] [address] [place] [address], [place] [address] Dec, [facility] [address] [id number] [address] [place] [address], [place] [address] Nov, [facility] [address] [id number] [address] [place] [address], [place] [address] Nov, [facility] [address] [id number] [address] [place] [address], [place] [address] Nov, [facility] [address] [id number] [address] [place] [address], [place] [address] Nov, [facility] [address] [id number] [address] [place] [address], [place] [address] Oct, [facility] [address] [id number] [address] [place] [address], [place] [address] Oct, [facility] [address] [id number] [address] [place] [address], [place] [address] Sep, [facility] [address] [id number] [address] [place] [address], [place] [address] Sep, [facility] [address] [id number] [address] [place] [address], [place] [address] 26 Jul, 2013 [facility] [address] [id number] [address] [place] [address], [place] [address] 19 Jul, 2013 [facility] [address] [id number] [address] [place] [address], [place] [address] Jul, [facility] [address] [id number] [address] [place] [address], [place] [address] Jun, [facility] [address] [id number] [address] [place] [address], [place] [address] Jun, [facility] [address] [id number] [address] [place] [address], [place] [address] May, [facility] [address] [id number] [address] [place] [address], [place] [address] May, [facility] [address] [id number] [address] [place] [address], [place] [address] May, [facility] [address] [id number] [address] [place] [address], [place] [address] March, [facility] [address] [id number] [address] [place] [address], [place] [address] Jan, [facility] [address] [id number] [address] [place] [address], [place] [address] Jan, [facility] [address] [id number] [address] [place] [address], [place] [address] Jan, [facility] [address] [id number] [address] [place] [address], [place] [address] Dec, [facility] [address] [id number] [address] [place] [address], [place] [address] May, [facility] [address] [id number] [address] [place] [address], [place] [address] March, [facility] [address] [id number] [address] [place] [address], [place] [address] Jan, [facility] [address] [id number] [address] [place] [address], [place] [address] Aug, [facility] [address] [id number] [address] [place] [address], [place] [address] Aug, [facility] [address] [id number] [address] [place] [address] Aug, [facility] [address] [facility] [id number] [address] [place] [address] Jun, [facility] [address] [facility] [id number] [address] [place] [address] May, [facility] [address] [facility] [id number] [address] [place] [address] Oct, IMMUNIZATIONS No Known Immunizations SOCIAL HISTORY Never Assessed REASON FOR VISIT medication refill PLAN OF CARE VITAL SIGNS MEDICATIONS Medication Instructions Dosage Frequency Start Date End Date Duration S tatus Meloxicam 7.5 MG Orally 2 times a day 1 tablet 12h Jun, 30 day(s) Active RESULTS No Results PROCEDURES No Known [...]
--- OUTSIDE RECORDS SUMMARY | 2020-02-05 11:02 | XMS REPORT ---
Author Author Jelani Arambula Doctor Organization [facility] Address Unknown Phone Unavailable Care Team Providers [facility] Processor Name Role Phone Migration, Doctor Unavailable Unavailable PROBLEMS Type Condition ICD9-CM Code EHC81-HG Code Onset Dates Condition S tatus SNOMED Code Problem Anger R45.4 Active 10389912 Problem Hx of cervical spine surgery Z98.89 A ctive 258319479 Problem Pain in right foot M79.671 Active 4 7412351 Problem Erectile dysfunction, unspecified erectile dysfunction typ e N52.9 Active 139039887 Problem Candidal dermatitis B37.2 Active 57594456 Problem Gastroesophageal reflux disease with esophagitis K 21.0 Active 855139821 Problem Anxiety disorder, unspecified F41.9 Active 101084071 Problem Mixed hyperlipidemia E78.2 Active 570979394 Problem 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 Active 730339114 Problem Unspecified mood [affective] disorder F39 Active 583126749 Problem Other stimulant dependence, 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 Active 096266453 Problem Marijuana abuse F12.10 Active 3734 4009 Problem Drug-induced erectile dysfunction N52.2 Active 501620790 Problem Cannabis dependence, uncomplicated F12.20 Active 49682396 Problem Wheezing R06.2 Active 79805669 Problem Psychophysiological insomnia F51.04 A ctive 498730030 Problem Pure hypercholesterolemia E78.00 Acti ve 391243053 Problem Anxiety F41.9 Active 55213858 Problem Idiopathic peripheral neuropathy G60.9 Active 73267919 Problem Polydipsia R63.1 Active 21181740 Problem Low back pain M54.5 Active 972079 005 Problem Essential hypertension I10 Active 58433557 Problem Pain in right knee M25.561 Active 3 [id number] Problem Mood disorder F39 Active 957645 05 Problem Other chronic pain G89.29 Active 8 8048582 Problem Primary osteoarthritis of left hip M16.12 Active 991900083 ALLERGIES No Information ENCOUNTERS Encounter Location Date Diagnosis [facility] [address] [facility] [id number] [address] [place] [address] Feb, [facility] [address] [facility] [id number] [address] [place] [address] Feb, [facility] [address] [facility] [id number] [address] [place] [address] Jan, [facility] [address] [facility] [id number] [address] [place] [address] Jan, [facility] [address] [facility] [id number] [address] [place] [address] Jan, Polydipsia R63.1 ; Periphera l edema R60.9 ; Pre-diabetes R73.03 and Tongue lesion K14.8 [place] [address] [facility] [id number] [address] [place] [address] Sep, Other chronic pain G89.29 [place] [address] [facility] [id number] [address] [place] [address] Sep, Acute low back pain, unspeci fied back pain laterality, with sciatica presence unspecified M54.5 [place] [address] [facility] [id number] [address] [place] [address] Sep, Low vitamin D level R79.89 [place] [address] [facility] [id number] [address] [place] [address] Aug, Acute low back pain, unspeci fied back pain laterality, with sciatica presence unspecified M54.5 and Primary osteoarthritis of left hip M16.12 [facility] [address] [facility] [id number] [address] [place] [address] Aug, [facility] [address] [facility] [id number] [address] [place] [address] Jun, [place] [address] [facility] [id number] [address] [place] [address] Jun, Other chronic pain G89.29 an d Pain in right knee M25.561 [place] [address] [facility] [id number] [address] [place] [address] May, Primary osteoarthritis of le ft hip M16.12 ; Pain in left hip M25.552 ; Other acute postprocedural pain G89.18 and Anxiety F41.9 [facility] [address] [id number] [address] [place] [address] May, [facility] [address] [id number] [address] [place] [address] Apr, Pain in right knee M25.561 a nd Mood disorder F39 [facility] [address] [id number] [address] [place] [address] Apr, [facility] [address] [id number] [address] [place] [address] [id number] March, [facility] [address] [id number] [place] [address] [id number] March, Encounter for dental exam an d cleaning w/o abnormal findings Z01.20 [facility] [address] [id number] [address] [place] [address] [id number] March, Dental examination Z01.20 [facility] [address] [id number] [place] [address] [id number] March, Dental examination Z01.20 [facility] [address] [id number] [address] [place] [address] March, [facility] [address] [id number] [address] [place] [address] March, [facility] [address] [id number] [address] [place] [address] Feb, [facility] [address] [id number] [address] [place] [address] Feb, Primary osteoarthritis of le ft hip M16.12 [facility] [address] [id number] [address] [place] [address] Feb, Other chronic pain G89.29 an d Pain in left hip M25.552 [facility] [address] [id number] [address] [place] [address] Feb, Acute pain of left hip M25.5 52 [facility] [address] [id number] [address] [place] [address] Feb, Mood disorder F39 and Pain i n right knee M25.561 [facility] [address] [id number] [address] [place] [address] Jan, Other chronic pain G89.29 [facility] [address] [id number] [address] [place] [address] Jan, Mood disorder F39 [facility] [address] [id number] [address] [place] [address] Jan, Pain in right knee M25.561 [facility] [address] [id number] [address] [place] [address] Jan, Pain in left hip M25.552 and Other chronic pain G89.29 [facility] [address] [id number] [address] [place] [address] Jan, Acute pain of left hip M25.5 52 [facility] [address] [facility] [id number] [address] [place] [address] Jan, Acute pain of left hip M25.5 52 [facility] [address] [id number] [address] [place] [address] Jan, Mood disorder F39 and Acute pain of left hip M25.552 [facility] [address] [id number] [address] [place] [address] Nov, Mood disorder F39 [facility] [address] [facility] [id number] [address] [place] [address] Oct, Essential hypertension I10 ; Mixed hyperlipidemia E78.2 and Low back pain M54.5 [facility] [address] [id number] [id number] May, [place] [address] [address] Apr, Essential hypertension I10 ; Anger R45.4 ; Mixed hyperlipidemia E78.2 ; Drug-induced erectile dysfunction N52.2 ; Gastroesophageal reflux disease with esophagitis K21.0 ; Pure hypercholesterolemia E78.00 ; Pain in right knee M25.561 ; Psychophysiological insomnia F51.04 and Wheezing R06.2 [place] [address] [address] March, Hx of cervical spine surgery Z98.89 [place] [address] [address] March, [place] [address] [address] Feb, Anxiety associated with depr ession F41.8 [place] [address] [address] Jan, Anxiety associated with depr ession F41.8 [place] [address] [address] Dec, [place] [address] [address] Dec, [place] [address] [address] Dec, Essential hypertension I10 ; Erectile dysfunction, unspecified erectile dysfunction type N52.9 and Hyperlipemia E78.5 [place] [address] [place] [id number] [place] [address] Nov, Essential hypertension I10 ; Hx of cervical spine surgery Z98.89 ; Erectile dysfunction, unspecified erectile dysfunction type N52.9 ; Idiopathic peripheral neuropathy G60.9 ; Anger R45.4 ; Anxiety associated with depression F41.8 ; Hyperlipemia E78.5 ; Wheezing R06.2 and Has daytime drowsiness R40.0 [place] [address] [address] Nov, [facility] [address] [facility] [id number] [address] [place] [address] Nov, [facility] [address] [facility] [id number] [address] [place] [address] Sep, [facility] [address] [facility] [id number] [address] [place] [address] Sep, Acute midline low back pain without sciatica M54.5 [facility] [address] [facility] [id number] [address] [place] [address] Sep, Acute bilateral low back ekta n without sciatica M54.5 [facility] [address] [place] [id number] [address] [place] [address] Aug, [facility] [address] [place] [id number] [address] [place] [address] Jun, Wheezing R06.2 ; Candidal de rmatitis B37.2 ; Essential hypertension I10 ; Erectile dysfunction, unspecified erectile dysfunction type N52.9 ; Idiopathic peripheral neuropathy G60.9 ; Mixed hyperlipidemia E78.2 and Other stimulant dependence, 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 [facility] [address] [place] [id number] [address] [place] [address] March, Essential hypertension I10 ; Hx of cervical spine surgery Z98.89 ; Idiopathic peripheral neuropathy G60.9 ; Mixed hyperlipidemia E78.2 ; Anger R45.4 ; Drug-induced erectile dysfunction N52.2 and Gastroesophageal reflux disease with esophagitis K21.0 [facility] [address] [facility] [id number] [address] [place] [address] Feb, [facility] [address] [place] [id number] [address] [place] [address] Dec, Low back pain M54.5 [facility] [address] [facility] [id number] [address] [place] [address] Dec, [facility] [address] [place] [id number] [place] [address] Dec, Essential hypertension I10 ; Hyperlipemia E78.5 ; Erectile dysfunction, unspecified erectile dysfunction type N52.9 ; Anger R45.4 ; Mixed hyperlipidemia E78.2 ; Anxiety associated with depression F41.8 ; Elevated serum creatinine R79.89 ; 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 and Marijuana abuse F12.10 [place] [id number] [place] [address] Dec, Unspecified mood [affective] disorder F39 ; Anxiety disorder, unspecified F41.9 ; Other stimulant dependence, 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 and Cannabis dependence, uncomplicated F12.20 [place] [address] [place] [id number] [address] [place] [address] Oct, Essential hypertension I10 ; Idiopathic peripheral neuropathy G60.9 ; Low back pain M54.5 ; Hx of cervical spine surgery Z98.89 ; Erectile dysfunction, unspecified erectile dysfunction type N52.9 ; Anger R45.4 ; Mixed hyperlipidemia E78.2 and Anxiety associated with depression F41.8 [place] [address] [place] [address] Oct, Unspecified mood [affective] disorder F39 and Anxiety disorder, unspecified F41.9 [place] [address] [place] [id number] [address] [place] [address] Oct, Hyperlipemia E78.5 [place] [address] [place] [id number] [address] [place] [address] Oct, Essential hypertension I10 [place] [address] [place] [id number] [address] [place] [address] Oct, [place] [address] [place] [id number] [address] [place] [address] Oct, Essential hypertension I10 ; Idiopathic peripheral neuropathy G60.9 ; Low back pain M54.5 ; Hx of cervical spine surgery Z98.89 ; Pain in right hand M79.641 ; Pain of left hand M79.642 ; Pain in left foot M79.672 ; Pain in right foot M79.671 ; Erectile dysfunction, unspecified erectile dysfunction type N52.9 and Anger R45.4 [facility] [address] [id number] [address] [place] [address] Sep, [facility] [address] [id number] [address] [place] [address] Jul, [facility] [address] [id number] [address] [place] [address] Jun, [facility] [address] [id number] [address] [place] [address] May, [facility] [address] [id number] [address] [place] [address] Apr, [facility] [address] [id number] [address] [place] [address] March, [facility] [address] [id number] [address] [place] [address] Feb, [facility] [address] [id number] [address] [place] [address] Feb, [facility] [address] [id number] [address] [place] [address] Jan, [facility] [address] [id number] [address] [place] [address] Jan, [facility] [address] [id number] [address] [place] [address] Nov, [facility] [address] [id number] [address] [place] [address] Nov, [facility] [address] [id number] [address] [place] [address] Nov, [facility] [address] [id number] [address] [place] [address] Nov, [facility] [address] [id number] [address] [place] [address] Nov, [facility] [address] [id number] [address] [place] [address], [place] [address] Nov, [facility] [address] [id number] [address] [place] [address], [place] [address] Oct, [facility] [address] [id number] [address] [place] [address], [place] [address] Oct, [facility] [address] [id number] [address] [place] [address], [place] [address] Oct, [facility] [address] [id number] [address] [place] [address], [place] [address] Oct, [facility] [address] [id number] [address] [place] [address], [place] [address] Sep, [facility] [address] [id number] [address] [place] [address], [place] [address] Sep, [facility] [address] [id number] [address] [place] [address], [place] [address] Sep, [facility] [address] [id number] [address] [place] [address], [place] [address] Sep, [facility] [address] [id number] [address] [place] [address], [place] [address] Sep, [facility] [address] [id number] [address] [place] [address], [place] [address] 16 Aug, 2014 [facility] [address] [id number] [address] [place] [address] 16 Aug, 2014 [facility] [address] [id number] [address] [place] [address], [place] [address] 15 Aug, 2014 [facility] [address] [id number] [address] [place] [address], [place] [address] 15 Aug, 2014 [facility] [address] [id number] [address] [place] [address], [place] [address] 15 Aug, 2014 [facility] [address] [id number] [address] [place] [address], [place] [address] 15 Aug, 2014 [facility] [address] [id number] [address] [place] [address], [place] [address] 13 Aug, 2014 [facility] [address] [id number] [address] [place] [address], [place] [address] Aug, [facility] [address] [id number] [address] [place] [address], [place] [address] Aug, [facility] [address] [id number] [address] [place] [address], [place] [address] Aug, [facility] [address] [id number] [address] [place] [address], [place] [address] Aug, [facility] [address] [id number] [address] [place] [address], [place] [address] Jul, [facility] [address] [id number] [address] [place] [address], [place] [address] Jul, [facility] [address] [id number] [address] [place] [address], [place] [address] 18 Jul, 2014 [facility] [address] [id number] [address] [place] [address], [place] [address] Jul, [facility] [address] [id number] [address] [place] [address], [place] [address] Jun, [facility] [address] [id number] [address] [place] [address], [place] [address] Jun, [facility] [address] [id number] [address] [place] [address], [place] [address] Jun, [facility] [address] [id number] [address] [place] [address], [place] [address] Jun, [facility] [address] [id number] [address] [place] [address], [place] [address] Jun, [facility] [address] [id number] [address] [place] [address], [place] [address] Jun, [facility] [address] [id number] [address] [place] [address], [place] [address] May, [facility] [address] [id number] [address] [place] [address], [place] [address] May, [facility] [address] [id number] [address] [place] [address], [place] [address] May, [facility] [address] [id number] [address] [place] [address], [place] [address] May, [facility] [address] [id number] [address] [place] [address], [place] [id number] May, [facility] [address] [id number] [address] [place] [address], [place] [address] May, [facility] [address] [id number] [address] [place] [address], [place] [address] May, [facility] [address] [id number] [address] [place] [address], [place] [address] May, [facility] [address] [id number] [address] [place] [address], [place] [address] May, [facility] [address] [id number] [address] [place] [address], [place] [address] May, [facility] [address] [id number] [address] [place] [address], [place] [address] May, [facility] [address] [id number] [address] [place] [address], [place] [address] May, [facility] [address] [id number] [address] [place] [address], [place] [address] Apr, [facility] [address] [id number] [address] [place] [address], [place] [address] Apr, [facility] [address] [id number] [address] [place] [address], [place] [address] March, [facility] [address] [id number] [address] [place] [address], [place] [address] March, [facility] [address] [id number] [address] [place] [address], [place] [address] March, [facility] [address] [id number] [address] [place] [address], [place] [address] March, [facility] [address] [id number] [address] [place] [address], [place] [address] Feb, [facility] [address] [id number] [address] [place] [address], [place] [address] Feb, [facility] [address] [id number] [address] [place] [address], [place] [address] Jan, [facility] [address] [id number] [address] [place] [address], [place] [address] Jan, [facility] [address] [id number] [address] [place] [address], [place] [address] Jan, [facility] [address] [id number] [address] [place] [address], [place] [address] Jan, [facility] [address] [id number] [address] [place] [address], [place] [address] Dec, [facility] [address] [id number] [address] [place] [address], [place] [address] Dec, [facility] [address] [id number] [address] [place] [address], [place] [address] Nov, [facility] [address] [id number] [address] [place] [address], [place] [address] Nov, [facility] [address] [id number] [address] [place] [address], [place] [address] Nov, [facility] [address] [id number] [address] [place] [address], [place] [address] Nov, [facility] [address] [id number] [address] [place] [address], [place] [address] Oct, [facility] [address] [id number] [address] [place] [address], [place] [address] 10 Oct, 2013 [facility] [address] [id number] [address] [place] [address], [place] [address] Sep, [facility] [address] [id number] [address] [place] [address], [place] [address] Sep, [facility] [address] [id number] [address] [place] [address], [place] [address] Jul, [facility] [address] [id number] [address] [place] [address], [place] [address] Jul, [facility] [address] [id number] [address] [place] [address], [place] [address] Jul, [facility] [address] [id number] [address] [place] [address], [place] [address] Jun, [facility] [address] [id number] [address] [place] [address], [place] [address] Jun, [facility] [address] [id number] [address] [place] [address], [place] [address] May, [facility] [address] [id number] [address] [place] [address], [place] [address] May, [facility] [address] [id number] [address] [place] [address], [place] [address] May, [facility] [address] [id number] [address] [place] [address], [place] [address] March, [facility] [address] [id number] [address] [place] [address], [place] [address] Jan, [facility] [address] [id number] [address] [place] [address], [place] [address] Jan, [facility] [address] [id number] [address] [place] [address], [place] [address] Jan, [facility] [address] [id number] [address] [place] [address], [place] [address] Dec, [facility] [address] [id number] [address] [place] [address] May, [facility] [address] [id number] [address] [place] [id number] March, [facility] [address] [id number] [address] [place] [address] Jan, [facility] [address] [id number] [address] [place] [id number] Aug, [facility] [address] [id number] [address] [place] [address] Aug, [facility] [address] [id number] [address] [place] [address] Aug, [facility] [address] [id number] [address] [place] [address] Jun, [facility] [address] [id number] [address] [place] [address] May, [facility] [address] [id number] [address] [place] [address] Oct, IMMUNIZATIONS No Known Immunizations SOCIAL HISTORY Never Assessed REASON FOR VISIT [facility] PLAN OF CARE VITAL SIGNS MEDICATIONS Unknown [...]
--- OUTSIDE RECORDS SUMMARY | 2020-02-05 11:03 | XMS REPORT ---
Author Author Jelani ESPARZA Organization [facility] Address [address] [place] [address] Care Team Providers Care Energy Consultant Name Role Phone JAYME ESPARZA Unavailable PROBLEMS Type Condition ICD9-CM Code PRF90-XI Code Onset Dates Condition S tatus SNOMED Code Problem Hx of cervical spine surgery Z98.89 A ctive 606666444 Problem Drug-induced erectile dysfunction N52.2 Active 797583899 Problem Anger R45.4 Active 79657682 Problem Gastroesophageal reflux disease with esophagitis K 21.0 Active 886190112 Problem Erectile dysfunction, unspecified erectile dysfunction typ e N52.9 Active 068739716 Problem Candidal dermatitis B37.2 Active 02676838 Problem Psychophysiological insomnia F51.04 A ctive 428739322 Problem Wheezing R06.2 Active 48198924 Problem Anxiety F41.9 Active 33610438 Problem Primary osteoarthritis of left hip M16.12 Active 392653222 Problem Idiopathic peripheral neuropathy G60.9 Active 14272718 Problem Low back pain M54.5 Active 694203 005 Problem Pain in right foot M79.671 Active 4 3179615 Problem Pain in right knee M25.561 Active 3 [id number] Problem Pure hypercholesterolemia E78.00 Acti ve 544558653 Problem Other chronic pain G89.29 Active 8 6908649 Problem Mood disorder F39 Active 206295 05 Problem Anxiety disorder, unspecified F41.9 Active 776812782 Problem Unspecified mood [affective] disorder F39 Active 250675092 Problem Essential hypertension I10 Active 54339470 Problem Mixed hyperlipidemia E78.2 Active 622181075 Problem Other stimulant dependence, 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 Active 107499829 Problem Cannabis dependence, uncomplicated F12.20 Active 23547422 Problem 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 Active 063721352 Problem Marijuana abuse F12.10 Active 9844 4009 ALLERGIES Substance Reaction Event Type Date Status Codeine Sulfate stomach problems Drug Allergy Jun, Active bee stings Unknown Non Drug Allergy Jun, Active ENCOUNTERS Encounter Location Date Diagnosis [facility] [address] [id number] [address] [place] [address] Jun, [facility] [address] [id number] [address] [place] [address] Jun, Other chronic pain G89.29 an d Pain in right knee M25.561 [facility] [address] [id number] [address] [place] [address] May, Primary osteoarthritis of le ft hip M16.12 ; Pain in left hip M25.552 ; Other acute postprocedural pain G89.18 and Anxiety F41.9 [facility] [address] [id number] [address] [place] [address] May, [facility] [address] [id number] [address] [place] [address] Apr, Pain in right knee M25.561 a nd Mood disorder F39 [facility] [address] [id number] [address] [place] [address] Apr, [facility] [id number] [place] [id number] March, [facility] [address] [id number] [place] [id number] March, Encounter for dental exam an d cleaning w/o abnormal findings Z01.20 [facility] [address] [id number] [address] [place] [id number] March, Dental examination Z01.20 [facility] [address] [id number] [address] [place] [id number] March, Dental examination Z01.20 [facility] [address] [id number] [address] [place] [address] March, [facility] [address] [id number] [address] [place] [address] March, [facility] [address] [id number] [address] [place] [address] Feb, [facility] [address] [id number] [address] [place] [address] Feb, Primary osteoarthritis of le ft hip M16.12 [facility] [address] [id number] [address] [place] [address] Feb, Other chronic pain G89.29 an d Pain in left hip M25.552 [facility] [address] [id number] [address] [place] [address] Feb, Acute pain of left hip M25.5 52 [facility] [address] [id number] [address] [place] [address] Feb, Mood disorder F39 and Pain i n right knee M25.561 [facility] [address] [id number] [address] [place] [address] Jan, Other chronic pain G89.29 [facility] [address] [id number] [address] [place] [address] Jan, Mood disorder F39 [facility] [address] [id number] [address] [place] [address] Jan, Pain in right knee M25.561 [facility] [address] [id number] [address] [place] [address] Jan, Pain in left hip M25.552 and Other chronic pain G89.29 [facility] [address] [id number] [address] [place] [address] Jan, Acute pain of left hip M25.5 52 [facility] [address] [id number] [address] [place] [address] Jan, Acute pain of left hip M25.5 52 [facility] [address] [id number] [address] [place] [address] Jan, Mood disorder F39 and Acute pain of left hip M25.552 [facility] [address] [place] [id number] [address] [place] [address] Nov, Mood disorder F39 [place] [address] [address] Oct, Essential hypertension I10 ; Mixed hyperlipidemia E78.2 and Low back pain M54.5 [facility] [address] [place] [id number] [place] [id number] May, [place] [address] [address] Apr, Essential hypertension I10 ; Anger R45.4 ; Mixed hyperlipidemia E78.2 ; Drug-induced erectile dysfunction N52.2 ; Gastroesophageal reflux disease with esophagitis K21.0 ; Pure hypercholesterolemia E78.00 ; Pain in right knee M25.561 ; Psychophysiological insomnia F51.04 and Wheezing R06.2 [place] [address] [address] March, Hx of cervical spine surgery Z98.89 [place] [address] [address] March, [place] [address] [address] Feb, Anxiety associated with depr ession F41.8 [place] [address] [address] Jan, Anxiety associated with depr ession F41.8 [place] [address] [place] [id number] [address] [place] [address] Dec, [place] [address] [address] Dec, [place] [address] [address] Dec, Essential hypertension I10 ; Erectile dysfunction, unspecified erectile dysfunction type N52.9 and Hyperlipemia E78.5 [place] [address] [address] 30 Nov, 2016 Essential hypertension I10 ; Hx of cervical spine surgery Z98.89 ; Erectile dysfunction, unspecified erectile dysfunction type N52.9 ; Idiopathic peripheral neuropathy G60.9 ; Anger R45.4 ; Anxiety associated with depression F41.8 ; Hyperlipemia E78.5 ; Wheezing R06.2 and Has daytime drowsiness R40.0 [place] [address] [address] Nov, [place] [address] [address] Nov, [place] [address] [address] Sep, [place] [address] [address] Sep, Acute midline low back pain without sciatica M54.5 [place] [address] [address] Sep, Acute bilateral low back ekta n without sciatica M54.5 [place] [address] [address] Aug, [place] [address] [address] Jun, Wheezing R06.2 ; Candidal de rmatitis B37.2 ; Essential hypertension I10 ; Erectile dysfunction, unspecified erectile dysfunction type N52.9 ; Idiopathic peripheral neuropathy G60.9 ; Mixed hyperlipidemia E78.2 and Other stimulant dependence, 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 [place] [address] [address] March, Essential hypertension I10 ; Hx of cervical spine surgery Z98.89 ; Idiopathic peripheral neuropathy G60.9 ; Mixed hyperlipidemia E78.2 ; Anger R45.4 ; Drug-induced erectile dysfunction N52.2 and Gastroesophageal reflux disease with esophagitis K21.0 [place] [address] [place] [id number] [address] [place] [address] Feb, [place] [address] [address] Dec, Low back pain M54.5 [place] [address] [address] Dec, [place] [address] [address] Dec, Unspecified mood [affective] disorder F39 ; Anxiety disorder, unspecified F41.9 ; Other stimulant dependence, 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 and Cannabis dependence, uncomplicated F12.20 [place] [address] [address] Dec, Essential hypertension I10 ; Hyperlipemia E78.5 ; Erectile dysfunction, unspecified erectile dysfunction type N52.9 ; Anger R45.4 ; Mixed hyperlipidemia E78.2 ; Anxiety associated with depression F41.8 ; Elevated serum creatinine R79.89 ; 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 and Marijuana abuse F12.10 [place] [address] [address] Oct, Essential hypertension I10 ; Idiopathic peripheral neuropathy G60.9 ; Low back pain M54.5 ; Hx of cervical spine surgery Z98.89 ; Erectile dysfunction, unspecified erectile dysfunction type N52.9 ; Anger R45.4 ; Mixed hyperlipidemia E78.2 and Anxiety associated with depression F41.8 [place] [address] [place] [id number] [address] [place] [address] Oct, Unspecified mood [affective] disorder F39 and Anxiety disorder, unspecified F41.9 [place] [address] [address] Oct, Hyperlipemia E78.5 [place] [address] [address] Oct, Essential hypertension I10 [place] [address] [id number] [address] [place] [address] Oct, [facility] [address] [facility] [id number] [address] [place] [address] Oct, Essential hypertension I10 ; Idiopathic peripheral neuropathy G60.9 ; Low back pain M54.5 ; Hx of cervical spine surgery Z98.89 ; Pain in right hand M79.641 ; Pain of left hand M79.642 ; Pain in left foot M79.672 ; Pain in right foot M79.671 ; Erectile dysfunction, unspecified erectile dysfunction type N52.9 and Anger R45.4 [facility] [address] [id number] [address] [place] [address] Sep, [facility] [address] [id number] [address] [place] [address] Jul, [facility] [address] [id number] [address] [place] [address] Jun, [facility] [address] [id number] [address] [place] [address] May, [facility] [address] [facility] [id number] [address] [place] [address] Apr, [facility] [address] [facility] [id number] [address] [place] [address] March, [facility] [address] [id number] [address] [place] [address] Feb, [facility] [address] [id number] [address] [place] [address] Feb, [facility] [address] [id number] [address] [place] [address] Jan, [facility] [address] [id number] [address] [place] [address] Jan, [facility] [address] [id number] [address] [place] [address] Nov, [facility] [address] [id number] [address] [place] [address], [place] [address] Nov, [facility] [address] [id number] [address] [place] [address], [place] [address] Nov, [facility] [address] [id number] [address] [place] [address], [place] [address] Nov, [facility] [address] [id number] [address] [place] [address], [place] [address] Nov, [facility] [address] [id number] [address] [place] [address], [place] [address] Nov, [facility] [address] [id number] [address] [place] [address], [place] [address] Oct, [facility] [address] [id number] [address] [place] [address], [place] [address] Oct, [facility] [address] [id number] [address] [place] [address], [place] [address] Oct, [facility] [address] [id number] [address] [place] [address], [place] [address] Oct, [facility] [address] [id number] [address] [place] [address], [place] [address] Sep, [facility] [address] [id number] [address] [place] [address], [place] [address] Sep, [facility] [address] [id number] [address] [place] [address], [place] [address] Sep, [facility] [address] [id number] [address] [place] [address], [place] [address] Sep, [facility] [address] [id number] [address] [place] [address], [place] [address] Sep, [facility] [address] [id number] [address] [place] [address], [place] [address] 16 Aug, 2014 [facility] [address] [id number] [address] [address] 16 Aug, 2014 [facility] [address] [id number] [address] [place] [address], [place] [address] 15 Aug, 2014 [facility] [address] [id number] [address] [place] [address], [place] [address] 15 Aug, 2014 [facility] [address] [id number] [address] [place] [address], [place] [address] 15 Aug, 2014 [facility] [address] [id number] [address] [place] [address] 15 Aug, 2014 [facility] [address] [id number] [address] [place] [address], [place] [address] 13 Aug, 2014 [facility] [address] [id number] [address] [place] [address] 07 Aug, 2014 [facility] [address] [id number] [address] [place] [address], [place] [address] 07 Aug, 2014 [facility] [address] [id number] [address] [place] [address] 06 Aug, 2014 [facility] [address] [id number] [address] [place] [address], [place] [address] 06 Aug, 2014 [facility] [address] [id number] [address] [place] [address], [place] [address] 19 Jul, 2014 [facility] [address] [id number] [address] [place] [address] 19 Jul, 2014 [facility] [address] [id number] [address] [place] [address] 18 Jul, 2014 [facility] [address] [id number] [address] [place] [address], [place] [address] 18 Jul, 2014 [facility] [address] [id number] [address] [place] [address], [place] [address] Jun, [facility] [address] [id number] [address] [place] [address] Jun, [facility] [address] [id number] [address] [place] [address], [place] [address] Jun, [facility] [address] [id number] [address] [place] [address], [place] [address] Jun, [facility] [address] [id number] [address] [place] [address], [place] [address] Jun, [facility] [address] [id number] [address] [place] [address], [place] [address] Jun, [facility] [address] [id number] [address] [place] [address], [place] [address] May, [facility] [address] [id number] [address] [place] [address], [place] [address] May, [facility] [address] [id number] [address] [place] [address], [place] [address] May, [facility] [address] [id number] [address] [place] [address], [place] [address] May, [facility] [address] [id number] [address] [place] [address], [place] [id number] May, [facility] [address] [id number] [address] [place] [address], [place] [address] May, [facility] [address] [id number] [address] [place] [address], [place] [address] May, [facility] [address] [id number] [address] [place] [address], [place] [address] May, [facility] [address] [id number] [address] [place] [address], [place] [address] May, [facility] [address] [id number] [address] [place] [address], [place] [address] May, [facility] [address] [id number] [address] [place] [address], [place] [address] May, [facility] [address] [id number] [address] [place] [address], [place] [address] May, [facility] [address] [id number] [address] [place] [address], [place] [address] Apr, [facility] [address] [id number] [address] [place] [address], [place] [address] Apr, [facility] [address] [id number] [address] [place] [address], [place] [address] March, [facility] [address] [id number] [address] [place] [address], [place] [address] March, [facility] [address] [id number] [address] [place] [address], [place] [address] March, [facility] [address] [id number] [address] [place] [address], [place] [address] March, [facility] [address] [id number] [address] [place] [address], [place] [address] Feb, [facility] [address] [id number] [address] [place] [address], [place] [address] Feb, [facility] [address] [id number] [address] [place] [address], [place] [address] Jan, [facility] [address] [id number] [address] [place] [address], [place] [address] Jan, [facility] [address] [id number] [address] [place] [address], [place] [address] Jan, [facility] [address] [id number] [address] [place] [address], [place] [address] Jan, [facility] [address] [id number] [address] [place] [address], [place] [address] Dec, [facility] [address] [id number] [address] [place] [address], [place] [address] Dec, [facility] [address] [id number] [address] [place] [address], [place] [address] Nov, [facility] [address] [id number] [address] [place] [address] Nov, [facility] [address] [id number] [address] [place] [address], [place] [address] Nov, [facility] [address] [id number] [address] [place] [address], [place] [address] Nov, [facility] [address] [id number] [address] [place] [address], [place] [address] Oct, [facility] [address] [id number] [address] [place] [address], [place] [address] Oct, [facility] [address] [id number] [address] [place] [address], [place] [address] Sep, [facility] [address] [id number] [address] [place] [address], [place] [address] Sep, [facility] [address] [id number] [address] [place] [address], [place] [address] Jul, [facility] [address] [id number] [address] [place] [address], [place] [address] Jul, [facility] [address] [id number] [address] [place] [address], [place] [address] Jul, [facility] [address] [id number] [address] [place] [address], [place] [address] Jun, [facility] [address] [id number] [address] [place] [address], [place] [address] Jun, [facility] [address] [id number] [address] [place] [address], [place] [address] May, [facility] [address] [id number] [address] [place] [address], [place] [address] May, [facility] [address] [id number] [address] [place] [address], [place] [address] May, [facility] [address] [id number] [address] [place] [address], [place] [address] March, [facility] [address] [id number] [address] [place] [phone] Jan, [facility] [address] [id number] [address] [place] [phone] Jan, [facility] [address] [id number] [address] [place] [phone] Jan, [facility] [address] [id number] [address] [place] [phone] Dec, [facility] [address] [id number] [address] [place] [phone] May, [facility] [address] [id number] [address] [place] [id number] March, [facility] [address] [id number] [address] [place] [phone] Jan, [facility] [address] [id number] [address] [place] [id number] Aug, [facility] [address] [id number] [address] [place] [phone] Aug, [facility] [address] [id number] [address] [place] [id number] Aug, [facility] [address] [id number] [address] [place] [id number] Jun, [facility] [address] [id number] [address] [place] [phone] May, [facility] [address] [id number] [address] [place] [phone] Oct, IMMUNIZATIONS No Known Immunizations SOCIAL HISTORY Never Assessed REASON FOR VISIT Pain (acute)Knee Pt recently had Lt hip replacement and since that time his Rt knee has been causing him pain YAMIL Lopez PLAN OF CARE VITAL SIGNS Height 66 in 2018-06-19 Weight 219.4 lbs 2018-06-19 Temperature 97.8 degrees Fahrenheit 2018-06-19 Heart Rate 96 bpm 2018-06-19 Respiratory Rate 18 2018-06-19 BMI 35.41 kg/m2 2018-06-19 Blood pressure systolic 142 mmHg 2018-06-19 Blood pressure diastolic 82 mmHg 2018-06-19 MEDICATIONS Medication Instructions Dosage Frequency Start Date End Date Duration S tatus HydrOXYzine Pamoate 25 MG Orally every 8 hrs 1 capsule as needed 8h 16 May, 2018 30 day(s) Active Meloxicam 7.5 MG Orally 2 times a day 1 tablet 12h Jun, Sep, 30 day(s) Active Flexeril 10 mg Orally Three times a day 1 tablet as needed 8h 30 Active Norvasc 5 mg Orally Once a day 1 tablet 24h Dec, 30 days Active Citalopram Hydrobromide 20 MG Orally Once a day 1 tablet 24h Feb, 30 day(s) Active Trazodone HCl 150 MG Orally Once a day 1 tablet at bedtime 24h 2017 Active Lisinopril 10 mg Orally Once a day 1 tablet 24h Oct, Active Neurontin 800 MG Orally 3 times a day 1 tablet 8h 3 0 days Active RESULTS Name Result Date Reference Range Xray : Knee, Right 3 views (IN HOUSE) 2018-06-19 PROCEDURES Procedure Date Ordered Result Body Site X-RAY EXAM OF KNEE, 3 Jun 19, 2018 INSTRUCTIONS MEDICATIONS ADMINISTERED No Known Medications [...]
--- OUTSIDE RECORDS SUMMARY | 2020-02-05 11:03 | XMS REPORT ---
Author Author Jelani ESPARZA Organization [facility] Address [address] [place] [address] Care Team Providers Care Steel Hanger Name Role Phone JAYME ESPARZA Unavailable PROBLEMS Type Condition ICD9-CM Code PBC20-LQ Code Onset Dates Condition S tatus SNOMED Code Problem Hx of cervical spine surgery Z98.89 A ctive 937931784 Problem Drug-induced erectile dysfunction N52.2 Active 819547852 Problem Anger R45.4 Active 54480676 Problem Gastroesophageal reflux disease with esophagitis K 21.0 Active 637547510 Problem Erectile dysfunction, unspecified erectile dysfunction typ e N52.9 Active 148916093 Problem Candidal dermatitis B37.2 Active 68428830 Problem Psychophysiological insomnia F51.04 A ctive 198556446 Problem Wheezing R06.2 Active 81575879 Problem Anxiety F41.9 Active 09786568 Problem Primary osteoarthritis of left hip M16.12 Active 368463244 Problem Idiopathic peripheral neuropathy G60.9 Active 60058413 Problem Low back pain M54.5 Active 399675 005 Problem Pain in right foot M79.671 Active 4 7717183 Problem Pain in right knee M25.561 Active 3 [id number] Problem Pure hypercholesterolemia E78.00 Acti ve 488692212 Problem Other chronic pain G89.29 Active 8 4973406 Problem Mood disorder F39 Active 017156 05 Problem Anxiety disorder, unspecified F41.9 Active 101137570 Problem Unspecified mood [affective] disorder F39 Active 453602541 Problem Essential hypertension I10 Active 82934392 Problem Mixed hyperlipidemia E78.2 Active 216637132 Problem Other stimulant dependence, 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 Active 574533335 Problem Cannabis dependence, uncomplicated F12.20 Active 13462183 Problem 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 Active 337502526 Problem Marijuana abuse F12.10 Active 3734 4009 ALLERGIES No Information ENCOUNTERS Encounter Location Date Diagnosis [facility] [address] [facility] [id number] [address] [place] [address] Sep, Acute low back pain, unspeci fied back pain laterality, with sciatica presence unspecified M54.5 [facility] [address] [id number] [address] [place] [address] Sep, Low vitamin D level R79.89 [facility] [address] [id number] [address] [place] [address] Aug, Acute low back pain, unspeci fied back pain laterality, with sciatica presence unspecified M54.5 and Primary osteoarthritis of left hip M16.12 [facility] [address] [id number] [address] [place] [address] Aug, [facility] [address] [id number] [address] [place] [address] Jun, [place] [address] [id number] [address] [place] [address] Jun, Other chronic pain G89.29 an d Pain in right knee M25.561 [facility] [address] [id number] [address] [place] [address] May, Primary osteoarthritis of le ft hip M16.12 ; Pain in left hip M25.552 ; Other acute postprocedural pain G89.18 and Anxiety F41.9 [facility] [address] [id number] [address] [place] [address] May, [facility] [address] [id number] [address] [place] [address] Apr, Pain in right knee M25.561 a nd Mood disorder F39 [facility] [address] [id number] [address] [place] [address] Apr, [facility] [address] [id number] [address] [place] [id number] March, [facility] [address] [id number] [address] [place] [id number] March, Encounter for dental exam an d cleaning w/o abnormal findings Z01.20 [facility] [address] [id number] [address] [place] [id number] March, Dental examination Z01.20 [facility] [address] [id number] [address] [place] [address] [id number] March, Dental examination Z01.20 [facility] [address] [id number] [address] [place] [address] March, [facility] [address] [id number] [address] [place] [address] March, [facility] [address] [id number] [address] [place] [address] Feb, [facility] [address] [id number] [address] [place] [address] Feb, Primary osteoarthritis of le ft hip M16.12 [facility] [address] [id number] [address] [place] [address] Feb, Other chronic pain G89.29 an d Pain in left hip M25.552 [facility] [address] [id number] [address] [place] [address] Feb, Acute pain of left hip M25.5 52 [facility] [address] [id number] [address] [place] [address] Feb, Mood disorder F39 and Pain i n right knee M25.561 [facility] [address] [id number] [address] [place] [address] Jan, Other chronic pain G89.29 [facility] [address] [id number] [address] [place] [address] Jan, Mood disorder F39 [facility] [address] [id number] [address] [place] [address] Jan, Pain in right knee M25.561 [facility] [address] [id number] [address] [place] [address] Jan, Pain in left hip M25.552 and Other chronic pain G89.29 [place] [address] [address] Jan, Acute pain of left hip M25.5 52 [place] [address] [place] [id number] [address] [place] [address] Jan, Acute pain of left hip M25.5 52 [place] [address] [address] Jan, Mood disorder F39 and Acute pain of left hip M25.552 [place] [address] [address] Nov, Mood disorder F39 [place] [address] [address] Oct, Essential hypertension I10 ; Mixed hyperlipidemia E78.2 and Low back pain M54.5 [facility] [address] [place] [id number] [place] [address] [id number] May, [place] [address] [address] Apr, Essential hypertension I10 ; Anger R45.4 ; Mixed hyperlipidemia E78.2 ; Drug-induced erectile dysfunction N52.2 ; Gastroesophageal reflux disease with esophagitis K21.0 ; Pure hypercholesterolemia E78.00 ; Pain in right knee M25.561 ; Psychophysiological insomnia F51.04 and Wheezing R06.2 [place] [id number] [place] [address] March, Hx of cervical spine surgery Z98.89 [place] [address] [address] March, [place] [address] [place] [id number] [address] [place] [address] Feb, Anxiety associated with depr ession F41.8 [place] [address] [place] [id number] [address] [place] [address] Jan, Anxiety associated with depr ession F41.8 [facility] [address] [facility] [id number] [address] [place] [address] Dec, [facility] [address] [place] [id number] [address] [place] [address] Dec, [facility] [address] [place] [id number] [place] [address] Dec, Essential hypertension I10 ; Erectile dysfunction, unspecified erectile dysfunction type N52.9 and Hyperlipemia E78.5 [facility] [address] [place] [id number] [place] [address] Nov, Essential hypertension I10 ; Hx of cervical spine surgery Z98.89 ; Erectile dysfunction, unspecified erectile dysfunction type N52.9 ; Idiopathic peripheral neuropathy G60.9 ; Anger R45.4 ; Anxiety associated with depression F41.8 ; Hyperlipemia E78.5 ; Wheezing R06.2 and Has daytime drowsiness R40.0 [facility] [id number] [place] [address] Nov, [facility] [address] [address] Nov, [facility] [address] [place] [id number] [address] [place] [address] Sep, [facility] [address] [place] [id number] [address] [place] [address] Sep, Acute midline low back pain without sciatica M54.5 [facility] [address] [place] [id number] [address] [place] [address] Sep, Acute bilateral low back ekta n without sciatica M54.5 [facility] [address] [place] [id number] [address] [place] [address] Aug, [facility] [address] [place] [id number] [place] [address] Jun, Wheezing R06.2 ; Candidal de rmatitis B37.2 ; Essential hypertension I10 ; Erectile dysfunction, unspecified erectile dysfunction type N52.9 ; Idiopathic peripheral neuropathy G60.9 ; Mixed hyperlipidemia E78.2 and Other stimulant dependence, 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 [place] [address] [address] March, Essential hypertension I10 ; Hx of cervical spine surgery Z98.89 ; Idiopathic peripheral neuropathy G60.9 ; Mixed hyperlipidemia E78.2 ; Anger R45.4 ; Drug-induced erectile dysfunction N52.2 and Gastroesophageal reflux disease with esophagitis K21.0 [place] [address] [address] Feb, [place] [address] [address] Dec, Low back pain M54.5 [place] [address] [address] Dec, [place] [address] [address] Dec, Unspecified mood [affective] disorder F39 ; Anxiety disorder, unspecified F41.9 ; Other stimulant dependence, 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 and Cannabis dependence, uncomplicated F12.20 [place] [address] [address] Dec, Essential hypertension I10 ; Hyperlipemia E78.5 ; Erectile dysfunction, unspecified erectile dysfunction type N52.9 ; Anger R45.4 ; Mixed hyperlipidemia E78.2 ; Anxiety associated with depression F41.8 ; Elevated serum creatinine R79.89 ; 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 and Marijuana abuse F12.10 [facility] [address] [place] [id number] [address] [place] [address] Oct, Essential hypertension I10 ; Idiopathic peripheral neuropathy G60.9 ; Low back pain M54.5 ; Hx of cervical spine surgery Z98.89 ; Erectile dysfunction, unspecified erectile dysfunction type N52.9 ; Anger R45.4 ; Mixed hyperlipidemia E78.2 and Anxiety associated with depression F41.8 [place] [address] [place] [id number] [place] [address] Oct, Unspecified mood [affective] disorder F39 and Anxiety disorder, unspecified F41.9 [facility] [address] [address] Oct, Hyperlipemia E78.5 [place] [address] [place] [id number] [place] [address] Oct, Essential hypertension I10 [place] [address] [address] Oct, [place] [address] [address] Oct, Essential hypertension I10 ; Idiopathic peripheral neuropathy G60.9 ; Low back pain M54.5 ; Hx of cervical spine surgery Z98.89 ; Pain in right hand M79.641 ; Pain of left hand M79.642 ; Pain in left foot M79.672 ; Pain in right foot M79.671 ; Erectile dysfunction, unspecified erectile dysfunction type N52.9 and Anger R45.4 [place] [address] [place] [id number] [address] [place] [address] Sep, [facility] [address] [place] [id number] [address] [place] [address] Jul, [facility] [address] [place] [id number] [address] [place] [address] Jun, [facility] [address] [place] [id number] [place] [address] May, [facility] [address] [place] [id number] [address] [place] [address] Apr, [facility] [address] [place] [id number] [place] [address] March, [facility] [address] [id number] [address] [place] [address], [place] [address] Feb, [facility] [address] [id number] [address] [place] [address], [place] [address] Feb, [facility] [address] [id number] [address] [place] [address], [place] [address] Jan, [facility] [address] [id number] [address] [place] [address], [place] [address] Jan, [facility] [address] [id number] [address] [place] [address], [place] [address] Nov, [facility] [address] [id number] [address] [place] [address], [place] [address] Nov, [facility] [address] [id number] [address] [place] [address], [place] [address] Nov, [facility] [address] [id number] [address] [place] [address], [place] [address] Nov, [facility] [address] [id number] [address] [place] [address], [place] [address] Nov, [facility] [address] [id number] [address] [place] [address], [place] [address] Nov, [facility] [address] [id number] [address] [place] [address], [place] [address] Oct, [facility] [address] [id number] [address] [place] [address] Oct, [facility] [address] [id number] [address] [place] [address], [place] [address] Oct, [facility] [address] [id number] [address] [place] [address], [place] [address] Oct, [facility] [address] [id number] [address] [place] [address], [place] [address] Sep, [facility] [address] [id number] [address] [place] [address] Sep, [facility] [address] [id number] [address] [place] [address], [place] [address] Sep, [facility] [address] [id number] [address] [place] [address] Sep, [facility] [address] [id number] [address] [place] [address], [place] [address] Sep, [facility] [address] [id number] [address] [place] [address], [place] [address] 16 Aug, 2014 [facility] [address] [id number] [address] [place] [address], [place] [address] 16 Aug, 2014 [facility] [address] [id number] [address] [place] [address], [place] [address] 15 Aug, 2014 [facility] [address] [id number] [address] [place] [address], [place] [address] 15 Aug, 2014 [facility] [address] [id number] [address] [place] [address], [place] [address] 15 Aug, 2014 [facility] [address] [id number] [address] [place] [address] 15 Aug, 2014 [facility] [address] [id number] [address] [place] [address], [place] [address] 13 Aug, 2014 [facility] [address] [id number] [address] [place] [address] 07 Aug, 2014 [facility] [address] [id number] [address] [place] [address] 07 Aug, 2014 [facility] [address] [id number] [address] [place] [address] 06 Aug, 2014 [facility] [address] [id number] [address] [place] [address] 06 Aug, 2014 [facility] [address] [id number] [address] [place] [address], [place] [address] 19 Jul, 2014 [facility] [address] [id number] [facility] [place] [address] Jul, 2013 [facility] [address] [id number] [facility] [place] [address] Jul, [facility] [address] [id number] [facility] [place] [address] Jul, [facility] [address] [id number] [address] [place] [address], [place] [address] Jun, [facility] [address] [id number] [address] [place] [address], [place] [address] Jun, [facility] [address] [id number] [address] [place] [address], [place] [address] Jun, [facility] [address] [id number] [address] [place] [address], [place] [address] Jun, [facility] [address] [id number] [address] [place] [address], [place] [address] Jun, [facility] [address] [id number] [address] [place] [address], [place] [address] Jun, [facility] [address] [id number] [address] [place] [address], [place] [address] May, [facility] [address] [id number] [address] [place] [address], [place] [address] May, [facility] [address] [id number] [address] [place] [address], [place] [address] May, [facility] [address] [id number] [address] [place] [address], [place] [address] May, [facility] [address] [id number] [address] [place] [address], [place] [id number] May, [facility] [address] [id number] [facility] [place] [address] May, [facility] [address] [id number] [address] [place] [address], [place] [address] May, [facility] [address] [id number] [facility] [place] [address] May, [facility] [address] [id number] [address] [place] [address], [place] [address] May, [facility] [address] [id number] [address] [place] [address], [place] [address] May, [facility] [address] [id number] [address] [place] [address], [place] [address] May, [facility] [address] [id number] [address] [place] [address], [place] [address] May, [facility] [address] [id number] [address] [place] [address], [place] [address] Apr, [facility] [address] [id number] [address] [place] [address], [place] [address] Apr, [facility] [address] [id number] [address] [place] [address], [place] [address] March, [facility] [address] [id number] [address] [place] [address], [place] [address] March, [facility] [address] [id number] [address] [place] [address], [place] [address] March, [facility] [address] [id number] [address] [place] [address], [place] [address] March, [facility] [address] [id number] [address] [place] [address], [place] [address] Feb, [facility] [address] [id number] [address] [place] [address], [place] [address] Feb, [facility] [address] [id number] [address] [place] [address], [place] [address] Jan, [facility] [address] [id number] [address] [place] [address], [place] [address] Jan, [facility] [address] [id number] [address] [place] [address], [place] [address] Jan, [facility] [address] [id number] [address] [place] [address], [place] [address] Jan, [facility] [address] [id number] [address] [place] [address], [place] [address] Dec, [facility] [address] [id number] [address] [place] [address], [place] [address] Dec, [facility] [address] [id number] [address] [place] [address], [place] [address] Nov, [facility] [address] [id number] [address] [place] [address], [place] [address] Nov, [facility] [address] [id number] [address] [place] [address], [place] [address] Nov, [facility] [address] [id number] [address] [place] [address], [place] [address] Nov, [facility] [address] [id number] [address] [place] [address], [place] [address] Oct, [facility] [address] [id number] [address] [place] [address], [place] [address] Oct, [facility] [address] [id number] [address] [place] [address], [place] [address] Sep, [facility] [address] [id number] [address] [place] [address], [place] [address] 14 Sep, 2013 [facility] [address] [id number] [address] [place] [address], [place] [id number] 26 Jul, 2013 [facility] [address] [id number] [address] [place] [address], [place] [address] 19 Jul, 2013 [facility] [address] [id number] [address] [place] [address], [place] [address] Jul, [facility] [address] [id number] [address] [place] [address], [place] [address] Jun, [facility] [address] [id number] [address] [place] [address], [place] [address] Jun, [facility] [address] [id number] [address] [place] [address], [place] [address] May, [facility] [address] [id number] [address] [place] [address], [place] [address] May, [facility] [address] [id number] [address] [place] [address], [place] [address] May, [facility] [address] [id number] [address] [place] [address], [place] [address] March, [facility] [address] [id number] [address] [place] [address], [place] [address] Jan, [facility] [address] [id number] [address] [place] [address], [place] [address] Jan, [facility] [address] [id number] [address] [place] [address], [place] [address] Jan, [facility] [address] [id number] [address] [place] [address], [place] [address] Dec, [facility] [address] [id number] [address] [place] [address], [place] [address] May, [facility] [address] [id number] [address] [place] [address], [place] [address] March, [facility] [address] [id number] [address] [place] [address], [place] [address] Jan, [facility] [address] [id number] [address] [place] [address], [place] [address] Aug, [facility] [address] [id number] [address] [place] [address], [place] [address] Aug, [facility] [address] [id number] [address] [place] [address], [place] [address] Aug, [facility] [address] [id number] [address] [place] [phone] Jun, [facility] [address] [facility] [id number] [address] [place] [phone] May, [facility] [address] [facility] [id number] [address] [place] [phone] Oct, IMMUNIZATIONS No Known Immunizations SOCIAL HISTORY Never Assessed REASON FOR VISIT meds from lab// PLAN OF CARE VITAL SIGNS MEDICATIONS Medication Instructions Dosage Frequency Start Date End Date Duration S tatus Ergocalciferol 2000 UNIT Orally Once a day 1 capsule 24h Sep, 8 30 days Active Ergocalciferol 27438 UNIT Orally once weekly 1 capsule Sep, Oct, 30 day(s) Active RESULTS No Results PROCEDURES [...]
--- OUTSIDE RECORDS SUMMARY | 2020-02-05 11:03 | XMS REPORT ---
Author Author Jelani ESPARZA Organization [facility] Address [address] [place] [address] Care Team Providers Care Tile Inspector Name Role Phone JAYME ESPARZA Unavailable PROBLEMS Type Condition ICD9-CM Code VRS29-CN Code Onset Dates Condition S tatus SNOMED Code Problem Hx of cervical spine surgery Z98.89 A ctive 386685171 Problem Drug-induced erectile dysfunction N52.2 Active 709705923 Problem Anger R45.4 Active 90514461 Problem Gastroesophageal reflux disease with esophagitis K 21.0 Active 091199554 Problem Erectile dysfunction, unspecified erectile dysfunction typ e N52.9 Active 131945488 Problem Candidal dermatitis B37.2 Active 03094270 Problem Psychophysiological insomnia F51.04 A ctive 324739883 Problem Wheezing R06.2 Active 72263947 Problem Anxiety F41.9 Active 54252681 Problem Primary osteoarthritis of left hip M16.12 Active 583418094 Problem Idiopathic peripheral neuropathy G60.9 Active 21276677 Problem Low back pain M54.5 Active 095959 005 Problem Pain in right foot M79.671 Active 4 2606077 Problem Pain in right knee M25.561 Active 3 [id number] Problem Pure hypercholesterolemia E78.00 Acti ve 500429739 Problem Other chronic pain G89.29 Active 8 9472989 Problem Mood disorder F39 Active 016673 05 Problem Anxiety disorder, unspecified F41.9 Active 370607353 Problem Unspecified mood [affective] disorder F39 Active 121885626 Problem Essential hypertension I10 Active 94131405 Problem Mixed hyperlipidemia E78.2 Active 661940985 Problem Other stimulant dependence, 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 Active 661074776 Problem Cannabis dependence, uncomplicated F12.20 Active 58786725 Problem 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 Active 243816376 Problem Marijuana abuse F12.10 Active 3734 4009 ALLERGIES No Information ENCOUNTERS Encounter Location Date Diagnosis [facility] [address] [facility] [id number] [address] [place] [address] Aug, Acute low back pain, unspeci fied back pain laterality, with sciatica presence unspecified M54.5 and Primary osteoarthritis of left hip M16.12 [facility] [address] [id number] [address] [place] [address] Aug, [facility] [address] [id number] [address] [place] [address] Jun, [facility] [address] [id number] [address] [place] [address] Jun, Other chronic pain G89.29 an d Pain in right knee M25.561 [facility] [address] [id number] [address] [place] [address] May, Primary osteoarthritis of le ft hip M16.12 ; Pain in left hip M25.552 ; Other acute postprocedural pain G89.18 and Anxiety F41.9 [facility] [address] [id number] [address] [place] [address] May, [facility] [address] [id number] [address] [place] [address] Apr, Pain in right knee M25.561 a nd Mood disorder F39 [facility] [address] [id number] [address] [place] [address] Apr, [facility] [address] [id number] [address] [place] [phone] March, [facility] [address] [id number] [address] [place] [address] [phone] March, Encounter for dental exam an d cleaning w/o abnormal findings Z01.20 [facility] [address] [id number] [address] [place] [id number] March, Dental examination Z01.20 [facility] [address] [id number] [address] [place] [address] [id number] March, Dental examination Z01.20 [facility] [address] [id number] [address] [place] [address] March, [facility] [address] [id number] [address] [place] [address] March, [facility] [address] [id number] [address] [place] [address] Feb, [facility] [address] [id number] [address] [place] [address] Feb, Primary osteoarthritis of le ft hip M16.12 [facility] [address] [id number] [address] [place] [address] Feb, Other chronic pain G89.29 an d Pain in left hip M25.552 [facility] [address] [id number] [address] [place] [address] Feb, Acute pain of left hip M25.5 52 [facility] [address] [id number] [address] [place] [address] Feb, Mood disorder F39 and Pain i n right knee M25.561 [facility] [address] [id number] [address] [place] [address] Jan, Other chronic pain G89.29 [facility] [address] [id number] [address] [place] [address] Jan, Mood disorder F39 [facility] [address] [id number] [address] [place] [address] Jan, Pain in right knee M25.561 [facility] [address] [id number] [address] [place] [address] Jan, Pain in left hip M25.552 and Other chronic pain G89.29 [facility] [address] [id number] [address] [place] [address] Jan, Acute pain of left hip M25.5 52 [facility] [address] [id number] [address] [place] [address] Jan, Acute pain of left hip M25.5 52 [facility] [address] [facility] [id number] [address] [place] [address] Jan, Mood disorder F39 and Acute pain of left hip M25.552 [facility] [address] [place] [id number] [address] [place] [address] Nov, Mood disorder F39 [facility] [address] [place] [id number] [place] [address] Oct, Essential hypertension I10 ; Mixed hyperlipidemia E78.2 and Low back pain M54.5 [facility] [address] [id number] May, [facility] [address] [place] [id number] [place] [address] Apr, Essential hypertension I10 ; Anger R45.4 ; Mixed hyperlipidemia E78.2 ; Drug-induced erectile dysfunction N52.2 ; Gastroesophageal reflux disease with esophagitis K21.0 ; Pure hypercholesterolemia E78.00 ; Pain in right knee M25.561 ; Psychophysiological insomnia F51.04 and Wheezing R06.2 [facility] [address] [address] March, Hx of cervical spine surgery Z98.89 [facility] [address] [address] March, [facility] [address] [place] [id number] [address] [place] [address] Feb, Anxiety associated with depr ession F41.8 [facility] [address] [place] [id number] [address] [place] [address] Jan, Anxiety associated with depr ession F41.8 [facility] [address] [place] [id number] [address] [place] [address] Dec, [facility] [address] [address] Dec, [facility] [address] [place] [id number] [address] [place] [address] Dec, Essential hypertension I10 ; Erectile dysfunction, unspecified erectile dysfunction type N52.9 and Hyperlipemia E78.5 [facility] [address] [place] [id number] [address] [place] [address] Nov, Essential hypertension I10 ; Hx of cervical spine surgery Z98.89 ; Erectile dysfunction, unspecified erectile dysfunction type N52.9 ; Idiopathic peripheral neuropathy G60.9 ; Anger R45.4 ; Anxiety associated with depression F41.8 ; Hyperlipemia E78.5 ; Wheezing R06.2 and Has daytime drowsiness R40.0 [facility] [address] [address] Nov, [facility] [address] [address] Nov, [facility] [address] [address] Sep, [facility] [address] [address] Sep, Acute midline low back pain without sciatica M54.5 [facility] [address] [address] Sep, Acute bilateral low back ekta n without sciatica M54.5 [facility] [address] [address] Aug, [facility] [address] [address] Jun, Wheezing R06.2 ; Candidal de rmatitis B37.2 ; Essential hypertension I10 ; Erectile dysfunction, unspecified erectile dysfunction type N52.9 ; Idiopathic peripheral neuropathy G60.9 ; Mixed hyperlipidemia E78.2 and Other stimulant dependence, 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 [facility] [address] [address] March, Essential hypertension I10 ; Hx of cervical spine surgery Z98.89 ; Idiopathic peripheral neuropathy G60.9 ; Mixed hyperlipidemia E78.2 ; Anger R45.4 ; Drug-induced erectile dysfunction N52.2 and Gastroesophageal reflux disease with esophagitis K21.0 [facility] [address] [address] Feb, [facility] [address] [address] Dec, Low back pain M54.5 [facility] [address] [address] Dec, [address] [address] Dec, Unspecified mood [affective] disorder F39 ; Anxiety disorder, unspecified F41.9 ; Other stimulant dependence, 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 and Cannabis dependence, uncomplicated F12.20 [facility] [address] [address] Dec, Essential hypertension I10 ; Hyperlipemia E78.5 ; Erectile dysfunction, unspecified erectile dysfunction type N52.9 ; Anger R45.4 ; Mixed hyperlipidemia E78.2 ; Anxiety associated with depression F41.8 ; Elevated serum creatinine R79.89 ; 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 and Marijuana abuse F12.10 [facility] [address] [address] Oct, Essential hypertension I10 ; Idiopathic peripheral neuropathy G60.9 ; Low back pain M54.5 ; Hx of cervical spine surgery Z98.89 ; Erectile dysfunction, unspecified erectile dysfunction type N52.9 ; Anger R45.4 ; Mixed hyperlipidemia E78.2 and Anxiety associated with depression F41.8 [facility] [address] [address] Oct, Unspecified mood [affective] disorder F39 and Anxiety disorder, unspecified F41.[address] [place] [address] Oct, Hyperlipemia E78.5 [facility] [address] [place] [id number] [address] [place] [address] Oct, Essential hypertension I10 [facility] [address] [facility] [id number] [address] [place] [address] Oct, [facility] [address] [place] [id number] [place] [address] Oct, Essential hypertension I10 ; Idiopathic peripheral neuropathy G60.9 ; Low back pain M54.5 ; Hx of cervical spine surgery Z98.89 ; Pain in right hand M79.641 ; Pain of left hand M79.642 ; Pain in left foot M79.672 ; Pain in right foot M79.671 ; Erectile dysfunction, unspecified erectile dysfunction type N52.9 and Anger R45.4 [facility] [address] [place] [id number] [address] [place] [address] Sep, [facility] [address] [place] [id number] [address] [place] [address] Jul, [facility] [address] [place] [id number] [address] [place] [address] Jun, [facility] [address] [place] [id number] [address] [place] [address] May, [facility] [address] [place] [id number] [address] [place] [address] Apr, [facility] [address] [facility] [id number] [address] [place] [address] March, [facility] [address] [place] [id number] [address] [place] [address] 14 Feb, 2015 [facility] [address] [facility] [id number] [address] [place] [address] Feb, [facility] [address] [place] [id number] [address] [place] [address] Jan, [facility] [address] [id number] [address] [place] [address], [place] [address] Jan, [facility] [address] [id number] [address] [place] [address], [place] [address] Nov, [facility] [address] [id number] [address] [place] [address], [place] [address] Nov, [facility] [address] [id number] [address] [place] [address], [place] [address] Nov, [facility] [address] [id number] [address] [place] [address], [place] [address] Nov, [facility] [address] [id number] [address] [place] [address], [place] [address] Nov, [facility] [address] [id number] [address] [place] [address], [place] [address] Nov, [facility] [address] [id number] [address] [place] [address], [place] [address] Oct, [facility] [address] [id number] [address] [place] [address], [place] [address] Oct, [facility] [address] [id number] [address] [place] [address], [place] [address] Oct, [facility] [address] [id number] [address] [place] [address], [place] [address] Oct, [facility] [place] [facility] [address] [id number] [address] [place] [address], [place] [address] Sep, [facility] [place] [facility] [address] [id number] [address] [place] [address], [place] [address] Sep, [facility] [place] [facility] [address] [id number] [address] [place] [address], [place] [address] Sep, [facility] [place] [facility] [address] [id number] [address] [place] [address], [place] [address] Sep, [facility] [place] [facility] [address] [id number] [address] [place] [address] 10 Sep, 2014 [facility] [place] [facility] [address] [id number] [address] [place] [address], [place] [address] 16 Aug, 2014 [facility] [place] [facility] [address] [id number] [address] [place] [address] 16 Aug, 2014 [facility] [place] [facility] [address] [id number] [address] [place] [address], [place] [address] 15 Aug, 2014 [facility] [place] [facility] [address] [id number] [address] [place] [address] 15 Aug, 2014 [facility] [address] [id number] [address] [place] [address], [place] [address] 15 Aug, 2014 [facility] [address] [id number] [address] [place] [address], [place] [address] 15 Aug, 2014 [facility] [address] [id number] [address] [place] [address] 13 Aug, 2014 [facility] [place] [facility] [address] [id number] [address] [place] [address] 07 Aug, 2014 [facility] [place] [facility] [address] [id number] [address] [place] [address] 07 Aug, 2014 [facility] [place] [facility] [address] [id number] [address] [place] [address] 06 Aug, 2014 [facility] [place] [facility] [address] [id number] [address] [place] [address] 06 Aug, 2014 [facility] [place] [facility] [address] [id number] [address] [place] [address] 19 Jul, 2013 [facility] [place] [facility] [address] [id number] [address] [place] [address] 19 Jul, 2013 [facility] [place] [facility] [address] [id number] [address] [place] [address] 18 Jul, 2013 [facility] [place] [facility] [address] [id number] [address] [place] [address] 18 Jul, 2013 [facility] [place] [facility] [address] [id number] [facility] [place] [address] Jun, [facility] [place] [facility] [address] [id number] [facility] [place] [address] Jun, [facility] [place] [facility] [address] [id number] [facility] [place] [address] Jun, [facility] [place] [facility] [address] [id number] [facility] [place] [address] Jun, [facility] [place] [facility] [address] [id number] [facility] [place] [address] Jun, [facility] [place] [facility] [address] [id number] [address] [place] [address], [place] [address] Jun, [facility] [place] [facility] [address] [id number] [address] [place] [address], [place] [address] May, [facility] [place] [facility] [address] [id number] [address] [place] [address], [place] [address] May, [facility] [place] [facility] [address] [id number] [address] [place] [address], [place] [address] May, [facility] [place] [facility] [address] [id number] [address] [place] [address], [place] [address] May, [facility] [place] [facility] [address] [id number] [address] [place] [address], [place] [id number] May, [facility] [place] [facility] [address] [id number] [address] [place] [address], [place] [address] May, [facility] [place] [facility] [address] [id number] [address] [place] [address], [place] [address] May, [facility] [place] [facility] [address] [id number] [address] [place] [address], [place] [address] May, [facility] [facility] [address] [id number] [address] [place] [address], [place] [address] May, [facility] [place] [facility] [address] [id number] [address] [place] [address], [place] [address] May, [facility] [address] [id number] [facility] [place] [address] May, [facility] [facility] [address] [id number] [facility] [place] [address] May, [facility] [address] [id number] [facility] [place] [address] Apr, [facility] [facility] [address] [id number] [address] [place] [address], [place] [address] Apr, [facility] [address] [id number] [address] [place] [address], [place] [address] March, [facility] [address] [id number] [address] [place] [address], [place] [address] March, [facility] [address] [id number] [address] [place] [address], [place] [address] March, [facility] [address] [id number] [address] [place] [address], [place] [address] March, [facility] [address] [id number] [address] [place] [address], [place] [address] Feb, [facility] [address] [id number] [address] [place] [address], [place] [address] Feb, [facility] [facility] [address] [id number] [address] [place] [address], [place] [address] Jan, [facility] [place] [facility] [address] [id number] [address] [place] [address], [place] [address] Jan, [facility] [place] [facility] [address] [id number] [address] [place] [address], [place] [address] Jan, [facility] [place] [facility] [address] [id number] [address] [place] [address], [place] [address] Jan, [facility] [place] [facility] [address] [id number] [address] [place] [address], [place] [address] Dec, [facility] [place] [facility] [address] [id number] [address] [place] [address], [place] [address] Dec, [facility] [address] [id number] [address] [place] [address], [place] [address] Nov, [facility] [address] [id number] [address] [place] [address], [place] [address] Nov, [facility] [address] [id number] [address] [place] [address], [place] [address] Nov, [facility] [address] [id number] [address] [place] [address], [place] [address] Nov, [facility] [address] [id number] [address] [place] [address], [place] [address] Oct, [facility] [address] [id number] [address] [place] [address], [place] [address] Oct, [facility] [address] [id number] [address] [place] [address], [place] [address] Sep, [facility] [address] [id number] [address] [place] [address], [place] [address] Sep, [facility] [address] [id number] [address] [place] [address], [place] [address] Jul, [facility] [address] [id number] [address] [place] [address], [place] [address] Jul, [facility] [address] [id number] [address] [place] [address], [place] [address] Jul, [facility] [address] [id number] [address] [place] [address], [place] [address] Jun, [facility] [address] [id number] [address] [place] [address], [place] [address] Jun, [facility] [address] [id number] [address] [place] [address], [place] [address] May, [facility] [address] [id number] [address] [place] [address], [place] [address] May, [facility] [address] [id number] [address] [place] [address] May, [facility] [address] [id number] [address] [place] [address] March, [facility] [address] [id number] [address] [place] [address] Jan, [facility] [address] [id number] [address] [place] [address] Jan, [facility] [address] [id number] [address] [place] [address] Jan, [facility] [address] [id number] [address] [place] [id number] Dec, [facility] [address] [id number] [address] [place] [id number] May, [facility] [address] [id number] [address] [place] [id number] March, [facility] [address] [id number] [address] [place] [phone] Jan, [facility] [address] [id number] [address] [place] [phone] Aug, [facility] [address] [id number] [address] [place] [id number] Aug, [facility] [address] [id number] [address] [place] [phone] Aug, [facility] [address] [id number] [address] [place] [id number] Jun, [facility] [address] [id number] [address] [place] [id number] May, [facility] [address] [id number] [address] [place] [id number] Oct, IMMUNIZATIONS No Known Immunizations SOCIAL HISTORY Never Assessed REASON FOR VISIT eye exam PLAN OF CARE VITAL SIGNS MEDICATIONS No Known Medications RESULTS No Results PROCEDURES No Known [...]
--- OUTSIDE RECORDS SUMMARY | 2020-02-05 11:03 | XMS REPORT ---
Author Author Jelani DIAZ Organization [facility] Address [address] [place] [address] Care Team Providers Care Projection Engineer Name Role Phone SHITAL DIAZ Unavailable PROBLEMS Type Condition ICD9-CM Code [id number] Code Onset Dates Condition S tatus SNOMED Code Problem Hx of cervical spine surgery Z98.89 A ctive 748959701 Problem Drug-induced erectile dysfunction N52.2 Active 688034210 Problem Anger R45.4 Active 76566862 Problem Gastroesophageal reflux disease with esophagitis K 21.0 Active 241499205 Problem Erectile dysfunction, unspecified erectile dysfunction typ e N52.9 Active 569143367 Problem Candidal dermatitis B37.2 Active 57405146 Problem Psychophysiological insomnia F51.04 A ctive 684806923 Problem Wheezing R06.2 Active 26930535 Problem Anxiety F41.9 Active 95949542 Problem Primary osteoarthritis of left hip M16.12 Active 478603965 Problem Idiopathic peripheral neuropathy G60.9 Active 67773646 Problem Low back pain M54.5 Active 562545 005 Problem Pain in right foot M79.671 Active 4 9605965 Problem Pain in right knee M25.561 Active 3 [id number] Problem Pure hypercholesterolemia E78.00 Acti ve 691767644 Problem Other chronic pain G89.29 Active 8 7785355 Problem Mood disorder F39 Active 168164 05 Problem Anxiety disorder, unspecified F41.9 Active 497705154 Problem Unspecified mood [affective] disorder F39 Active 817735073 Problem Essential hypertension I10 Active 30816339 Problem Mixed hyperlipidemia E78.2 Active 746053198 Problem Other stimulant dependence, 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 Active 415564781 Problem Cannabis dependence, uncomplicated F12.20 Active 71579107 Problem 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 Active 260125145 Problem Marijuana abuse F12.10 Active 3734 4009 ALLERGIES No Information ENCOUNTERS Encounter Location Date Diagnosis [facility] [address] [id number] [address] [place] [id number] Sep, Acute low back pain, unspeci fied back pain laterality, with sciatica presence unspecified M54.5 [facility] [address] [id number] [address] [place] [id number] Sep, Low vitamin D level R79.89 [facility] [address] [id number] [address] [place] [id number] Aug, Acute low back pain, unspeci fied back pain laterality, with sciatica presence unspecified M54.5 and Primary osteoarthritis of left hip M16.12 [facility] [address] [id number] [address] [place] [id number] Aug, [facility] [address] [id number] [address] [place] [id number] Jun, [facility] [address] [id number] [address] [place] [address] Jun, Other chronic pain G89.29 an d Pain in right knee M25.561 [facility] [address] [id number] [address] [place] [address] May, Primary osteoarthritis of le ft hip M16.12 ; Pain in left hip M25.552 ; Other acute postprocedural pain G89.18 and Anxiety F41.9 [facility] [address] [id number] [address] [place] [id number] May, [facility] [address] [id number] [address] [place] [address] Apr, Pain in right knee M25.561 a nd Mood disorder F39 [facility] [address] [id number] [address] [place] [address] Apr, [facility] [address] [id number] [address] [place] [id number] March, [facility] [address] [id number] [address] [place] [address] [id number] March, Encounter for dental exam an d cleaning w/o abnormal findings Z01.20 [facility] [address] [id number] [address] [place] [address] [id number] March, Dental examination Z01.20 [facility] [address] [id number] [address] [place] [address] [id number] March, Dental examination Z01.20 [facility] [address] [id number] [address] [place] [id number] March, [facility] [address] [id number] [address] [place] [id number] March, [facility] [address] [id number] [address] [place] [id number] Feb, [facility] [address] [id number] [address] [place] [address] Feb, Primary osteoarthritis of le ft hip M16.12 [facility] [address] [id number] [address] [place] [address] Feb, Other chronic pain G89.29 an d Pain in left hip M25.552 [facility] [address] [id number] [address] [place] [address] Feb, Acute pain of left hip M25.5 52 [facility] [address] [id number] [address] [place] [address] Feb, Mood disorder F39 and Pain i n right knee M25.561 [facility] [address] [id number] [address] [place] [address] Jan, Other chronic pain G89.29 [facility] [address] [id number] [address] [place] [id number] Jan, Mood disorder F39 [facility] [address] [id number] [address] [place] [address] Jan, Pain in right knee M25.561 [facility] [address] [id number] [address] [place] [id number] Jan, Pain in left hip M25.552 and Other chronic pain G89.29 [place] [address] [place] [address] Jan, Acute pain of left hip M25.5 52 [place] [address] [place] [id number] [address] [place] [address] Jan, Acute pain of left hip M25.5 52 [place] [address] [place] [address] Jan, Mood disorder F39 and Acute pain of left hip M25.552 [place] [address] [address] Nov, Mood disorder F39 [place] [address] [address] Oct, Essential hypertension I10 ; Mixed hyperlipidemia E78.2 and Low back pain M54.5 [facility] [address] [place] [id number] [place] [id number] May, [place] [address] [address] Apr, Essential hypertension I10 ; Anger R45.4 ; Mixed hyperlipidemia E78.2 ; Drug-induced erectile dysfunction N52.2 ; Gastroesophageal reflux disease with esophagitis K21.0 ; Pure hypercholesterolemia E78.00 ; Pain in right knee M25.561 ; Psychophysiological insomnia F51.04 and Wheezing R06.2 [place] [address] [place] [address] March, Hx of cervical spine surgery Z98.89 [place] [address] [address] March, [place] [address] [address] Feb, Anxiety associated with depr ession F41.8 [place] [address] [facility] [id number] [address] [place] [phone] Jan, Anxiety associated with depr ession F41.8 [facility] [address] [facility] [id number] [address] [place] [id number] Dec, [facility] [address] [place] [id number] [address] [place] [phone] Dec, [facility] [address] [place] [id number] [address] [place] [id number] Dec, Essential hypertension I10 ; Erectile dysfunction, unspecified erectile dysfunction type N52.9 and Hyperlipemia E78.5 [facility] [address] [facility] [id number] [place] [address] Nov, Essential hypertension I10 ; Hx of cervical spine surgery Z98.89 ; Erectile dysfunction, unspecified erectile dysfunction type N52.9 ; Idiopathic peripheral neuropathy G60.9 ; Anger R45.4 ; Anxiety associated with depression F41.8 ; Hyperlipemia E78.5 ; Wheezing R06.2 and Has daytime drowsiness R40.0 [facility] [address] [facility] [id number] [address] [place] [phone] Nov, [facility] [address] [place] [id number] [place] [address] Nov, [facility] [address] [place] [id number] [address] [place] [address] Sep, [facility] [address] [place] [id number] [address] [place] [id number] Sep, Acute midline low back pain without sciatica M54.5 [facility] [address] [place] [id number] [address] [place] [address] Sep, Acute bilateral low back ekta n without sciatica M54.5 [facility] [address] [place] [id number] [address] [place] [address] Aug, [facility] [address] [place] [address] Jun, Wheezing R06.2 ; Candidal de rmatitis B37.2 ; Essential hypertension I10 ; Erectile dysfunction, unspecified erectile dysfunction type N52.9 ; Idiopathic peripheral neuropathy G60.9 ; Mixed hyperlipidemia E78.2 and Other stimulant dependence, 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 [place] [address] [address] March, Essential hypertension I10 ; Hx of cervical spine surgery Z98.89 ; Idiopathic peripheral neuropathy G60.9 ; Mixed hyperlipidemia E78.2 ; Anger R45.4 ; Drug-induced erectile dysfunction N52.2 and Gastroesophageal reflux disease with esophagitis K21.0 [place] [address] [address] Feb, [place] [address] [id number] Dec, Low back pain M54.5 [place] [address] [address] Dec, [place] [address] [address] Dec, Unspecified mood [affective] disorder F39 ; Anxiety disorder, unspecified F41.9 ; Other stimulant dependence, 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 and Cannabis dependence, uncomplicated F12.[address] [address] Dec, Essential hypertension I10 ; Hyperlipemia E78.5 ; Erectile dysfunction, unspecified erectile dysfunction type N52.9 ; Anger R45.4 ; Mixed hyperlipidemia E78.2 ; Anxiety associated with depression F41.8 ; Elevated serum creatinine R79.89 ; 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 and Marijuana abuse F12.10 [place] [address] [place] [id number] [address] [place] [address] Oct, Essential hypertension I10 ; Idiopathic peripheral neuropathy G60.9 ; Low back pain M54.5 ; Hx of cervical spine surgery Z98.89 ; Erectile dysfunction, unspecified erectile dysfunction type N52.9 ; Anger R45.4 ; Mixed hyperlipidemia E78.2 and Anxiety associated with depression F41.8 [facility] [address] [address] Oct, Unspecified mood [affective] disorder F39 and Anxiety disorder, unspecified F41.9 [facility] [address] [address] Oct, Hyperlipemia E78.5 [facility] [address] [place] [id number] [place] [address] Oct, Essential hypertension I10 [place] [address] [address] Oct, [place] [address] [address] Oct, Essential hypertension I10 ; Idiopathic peripheral neuropathy G60.9 ; Low back pain M54.5 ; Hx of cervical spine surgery Z98.89 ; Pain in right hand M79.641 ; Pain of left hand M79.642 ; Pain in left foot M79.672 ; Pain in right foot M79.671 ; Erectile dysfunction, unspecified erectile dysfunction type N52.9 and Anger R45.4 [facility] [address] [address] Sep, [facility] [address] [place] [id number] [address] [place] [id number] Jul, [facility] [address] [place] [id number] [address] [place] [phone] Jun, [facility] [address] [place] [id number] [place] [phone] May, [facility] [address] [place] [id number] [address] [place] [phone] Apr, [facility] [address] [address] March, [facility] [address] [id number] [address] [place] [address], [place] [address] Feb, [facility] [address] [id number] [address] [place] [address], [place] [address] Feb, [facility] [address] [id number] [address] [place] [address], [place] [address] Jan, [facility] [address] [id number] [address] [place] [address], [place] [address] Jan, [facility] [address] [id number] [address] [place] [address], [place] [address] Nov, [facility] [address] [id number] [address] [place] [address], [place] [address] Nov, [facility] [address] [id number] [address] [place] [address], [place] [address] Nov, [facility] [address] [id number] [address] [place] [address], [place] [address] Nov, [facility] [address] [id number] [address] [place] [address], [place] [address] Nov, [facility] [address] [id number] [address] [place] [address], [place] [address] Nov, [facility] [address] [id number] [address] [place] [address], [place] [address] Oct, [facility] [address] [id number] [address] [place] [address], [place] [address] Oct, [facility] [place] [address] [id number] [address] [place] [address], [place] [address] Oct, [facility] [place] [facility] [address] [id number] [address] [place] [address], [place] [address] Oct, [facility] [place] [facility] [address] [id number] [address] [place] [address], [place] [address] Sep, [facility] [address] [id number] [address] [place] [address], [place] [address] Sep, [facility] [place] [facility] [address] [id number] [address] [place] [address], [place] [address] Sep, [facility] [place] [facility] [address] [id number] [address] [place] [address], [place] [id number] Sep, [facility] [place] [facility] [address] [id number] [address] [place] [address], [place] [address] Sep, [facility] [place] [address] [id number] [address] [place] [address], [place] [address] 16 Aug, 2014 [facility] [place] [facility] [address] [id number] [address] [place] [address], [place] [address] 16 Aug, 2014 [facility] [place] [address] [id number] [address] [place] [address], [place] [address] 15 Aug, 2014 [facility] [place] [facility] [address] [id number] [address] [place] [address], [place] [id number] 15 Aug, 2014 [facility] [place] [facility] [address] [id number] [address] [place] [address], [place] [address] 15 Aug, 2014 [facility] [place] [facility] [address] [id number] [address] [place] [address], [place] [address] 15 Aug, 2014 [facility] [place] [facility] [address] [id number] [address] [place] [address], [place] [address] 13 Aug, 2014 [facility] [place] [facility] [address] [id number] [address] [place] [address], [place] [address] 07 Aug, 2014 [facility] [place] [facility] [address] [id number] [address] [place] [id number] 07 Aug, 2014 [facility] [place] [facility] [address] [id number] [address] [place] [address], [place] [address] 06 Aug, 2014 [facility] [place] [facility] [address] [id number] [address] [place] [address], [place] [address] 06 Aug, 2014 [facility] [place] [facility] [address] [id number] [address] [place] [address], [place] [address] 19 Jul, 2014 [facility] [place] [facility] [address] [id number] [address] [place] [address], [place] [address] Jul, [facility] [address] [id number] [address] [place] [address], [place] [address] Jul, [facility] [place] [facility] [address] [id number] [address] [place] [address], [place] [address] Jul, [facility] [place] [facility] [address] [id number] [address] [place] [address], [place] [address] Jun, [facility] [address] [id number] [address] [place] [address], [place] [address] Jun, [facility] [place] [facility] [address] [id number] [address] [place] [address], [place] [address] Jun, [facility] [address] [id number] [address] [place] [address], [place] [address] Jun, [facility] [address] [id number] [address] [place] [address], [place] [address] Jun, [facility] [address] [id number] [address] [place] [address], [place] [address] Jun, [facility] [address] [id number] [address] [place] [address], [place] [address] May, [facility] [address] [id number] [address] [place] [address], [place] [address] May, [facility] [address] [id number] [address] [place] [address], [place] [address] May, [facility] [address] [id number] [address] [place] [address], [place] [address] May, [facility] [place] [facility] [address] [id number] [address] [place] [address], [place] [id number] May, [facility] [place] [facility] [address] [id number] [address] [place] [address], [place] [address] May, [facility] [place] [facility] [address] [id number] [address] [place] [address], [place] [address] May, [facility] [address] [id number] [facility] [place] [address] May, [facility] [place] [facility] [address] [id number] [address] [place] [address], [place] [id number] May, [facility] [address] [id number] [address] [place] [address], [place] [address] May, [facility] [place] [facility] [address] [id number] [address] [place] [address], [place] [address] May, [facility] [address] [id number] [address] [place] [address], [place] [address] May, [facility] [address] [id number] [address] [place] [address], [place] [address] Apr, [facility] [address] [id number] [address] [place] [address], [place] [address] Apr, [facility] [address] [id number] [address] [place] [address], [place] [id number] March, [facility] [address] [id number] [address] [place] [address], [place] [address] March, [facility] [address] [id number] [address] [place] [address], [place] [address] March, [facility] [address] [id number] [address] [place] [address], [place] [address] March, [facility] [place] [facility] [address] [id number] [address] [place] [address], [place] [address] Feb, [facility] [place] [facility] [address] [id number] [address] [place] [address], [place] [address] Feb, [facility] [place] [facility] [address] [id number] [address] [place] [address], [place] [address] Jan, [facility] [place] [facility] [address] [id number] [address] [place] [address], [place] [address] Jan, [facility] [place] [facility] [address] [id number] [address] [place] [address] Jan, [facility] [address] [id number] [address] [place] [address], [place] [address] Jan, [facility] [address] [id number] [address] [place] [address], [place] [address] Dec, [facility] [address] [id number] [address] [place] [address], [place] [address] Dec, [facility] [address] [id number] [address] [place] [address], [place] [address] Nov, [facility] [address] [id number] [address] [place] [address], [place] [address] Nov, [facility] [address] [id number] [address] [place] [address], [place] [address] Nov, [facility] [address] [id number] [address] [place] [address], [place] [address] Nov, [facility] [address] [id number] [address] [place] [address], [place] [address] Oct, [facility] [address] [id number] [address] [place] [address], [place] [address] Oct, [facility] [address] [id number] [address] [place] [address], [place] [address] Sep, [facility] [address] [id number] [address] [place] [address], [place] [address] Sep, [facility] [address] [id number] [address] [place] [address], [place] [address] Jul, [facility] [address] [id number] [address] [place] [address], [place] [id number] 19 Jul, 2013 [facility] [address] [id number] [address] [place] [address], [place] [id number] Jul, [facility] [address] [id number] [address] [place] [address], [place] [id number] Jun, [facility] [address] [id number] [address] [place] [address], [place] [id number] Jun, [facility] [address] [id number] [address] [place] [address], [place] [id number] May, [facility] [address] [id number] [address] [place] [address], [place] [id number] May, [facility] [address] [id number] [address] [place] [address], [place] [id number] May, [facility] [address] [id number] [address] [place] [address], [place] [id number] March, [facility] [address] [id number] [address] [place] [address], [place] [id number] Jan, [facility] [address] [id number] [address] [place] [address], [place] [id number] Jan, [facility] [address] [id number] [address] [place] [address], [place] [id number] Jan, [facility] [address] [id number] [address] [place] [address], [place] [id number] Dec, [facility] [address] [id number] [address] [place] [id number] May, [facility] [address] [id number] [address] [place] [address], [place] [id number] March, [facility] [address] [id number] [address] [place] [id number] Jan, [facility] [address] [id number] [address] [place] [address], [place] [id number] 14 Aug, 2011 [facility] [address] [id number] [address] [place] [address], [place] [id number] Aug, [facility] [address] [id number] [address] [place] [id number] Aug, [facility] [address] [id number] [address] [place] [id number] Jun, [facility] [address] [facility] [id number] [address] [place] [id number] May, [facility] [address] [facility] [id number] [address] [place] [id number] Oct, IMMUNIZATIONS No Known Immunizations SOCIAL HISTORY Never Assessed REASON FOR VISIT DI PLAN OF CARE Activity Details Pending Test MRI : Lumbar w/o contrast VITAL SIGNS MEDICATIONS Unknown Medications RESULTS No [...] History surgery Hospitalization History left axilla abcess, hypokalemia-[facility] 05/29/17
--- OUTSIDE RECORDS SUMMARY | 2020-02-05 11:04 | XMS REPORT ---
Author Author Jelani ESPARZA Organization [facility] Address [address] [place] [address] Care Team Providers Care Windows Application Administrator Name Role Phone JAYME ESPARZA Unavailable PROBLEMS Type Condition ICD9-CM Code [id number] Code Onset Dates Condition S tatus SNOMED Code Problem Hx of cervical spine surgery Z98.89 A ctive 279698840 Problem Drug-induced erectile dysfunction N52.2 Active 181249912 Problem Anger R45.4 Active 22413183 Problem Gastroesophageal reflux disease with esophagitis K 21.0 Active 705522557 Problem Erectile dysfunction, unspecified erectile dysfunction typ e N52.9 Active 903067121 Problem Candidal dermatitis B37.2 Active 40448910 Problem Psychophysiological insomnia F51.04 A ctive 910067550 Problem Wheezing R06.2 Active 91138643 Problem Anxiety F41.9 Active 73923288 Problem Primary osteoarthritis of left hip M16.12 Active 893152934 Problem Idiopathic peripheral neuropathy G60.9 Active 54314193 Problem Low back pain M54.5 Active 032794 005 Problem Pain in right foot M79.671 Active 4 2209165 Problem Pain in right knee M25.561 Active 3 89591184318540 Problem Pure hypercholesterolemia E78.00 Acti ve 348658432 Problem Other chronic pain G89.29 Active 8 1194669 Problem Mood disorder F39 Active 866152 05 Problem Anxiety disorder, unspecified F41.9 Active 314929441 Problem Unspecified mood [affective] disorder F39 Active 753123954 Problem Essential hypertension I10 Active 57424208 Problem Mixed hyperlipidemia E78.2 Active 919819259 Problem Other stimulant dependence, 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 Active 876847933 Problem Cannabis dependence, uncomplicated F12.20 Active 19392034 Problem 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 Active 174462028 Problem Marijuana abuse F12.10 Active 3734 4009 ALLERGIES Substance Reaction Event Type Date Status Codeine Sulfate stomach problems Drug Allergy May, Active bee stings Unknown Non Drug Allergy May, Active ENCOUNTERS Encounter Location Date Diagnosis [facility] [address] [id number] [address] [place] [address] Jun, [facility] [address] [id number] [address] [place] [address] Jun, Other chronic pain G89.29 an d Pain in right knee M25.561 [facility] [address] [id number] [address] [place] [address] May, Primary osteoarthritis of le ft hip M16.12 ; Pain in left hip M25.552 ; Other acute postprocedural pain G89.18 and Anxiety F41.9 [facility] [address] [id number] [address] [place] [address] May, [facility] [address] [id number] [address] [place] [address] Apr, Pain in right knee M25.561 a nd Mood disorder F39 [facility] [address] [id number] [address] [place] [address] Apr, [facility] [id number] [place] [address] [id number] March, [facility] [address] [id number] [place] [address] [phone] March, Encounter for dental exam an d cleaning w/o abnormal findings Z01.20 [facility] [address] [id number] [address] [place] [id number] March, Dental examination Z01.20 [facility] [address] [id number] [address] [place] [address] [id number] March, Dental examination Z01.20 [facility] [address] [id number] [address] [place] [address] March, [facility] [address] [id number] [address] [place] [address] March, [facility] [address] [id number] [address] [place] [address] Feb, [facility] [address] [id number] [address] [place] [address] Feb, Primary osteoarthritis of le ft hip M16.12 [facility] [address] [id number] [address] [place] [address] Feb, Other chronic pain G89.29 an d Pain in left hip M25.552 [facility] [address] [id number] [address] [place] [address] Feb, Acute pain of left hip M25.5 52 [facility] [address] [id number] [address] [place] [address] Feb, Mood disorder F39 and Pain i n right knee M25.561 [facility] [address] [id number] [address] [place] [address] Jan, Other chronic pain G89.29 [facility] [address] [id number] [address] [place] [address] Jan, Mood disorder F39 [facility] [address] [id number] [address] [place] [address] Jan, Pain in right knee M25.561 [facility] [address] [id number] [address] [place] [address] Jan, Pain in left hip M25.552 and Other chronic pain G89.29 [facility] [address] [id number] [address] [place] [address] Jan, Acute pain of left hip M25.5 52 [facility] [address] [id number] [address] [place] [address] Jan, Acute pain of left hip M25.5 52 [facility] [address] [id number] [address] [place] [address] Jan, Mood disorder F39 and Acute pain of left hip M25.552 [facility] [address] [place] [id number] [address] [place] [address] Nov, Mood disorder F39 [place] [address] [address] Oct, Essential hypertension I10 ; Mixed hyperlipidemia E78.2 and Low back pain M54.5 [facility] [address] [place] [id number] [place] [id number] May, [place] [address] [address] Apr, Essential hypertension I10 ; Anger R45.4 ; Mixed hyperlipidemia E78.2 ; Drug-induced erectile dysfunction N52.2 ; Gastroesophageal reflux disease with esophagitis K21.0 ; Pure hypercholesterolemia E78.00 ; Pain in right knee M25.561 ; Psychophysiological insomnia F51.04 and Wheezing R06.2 [place] [address] [address] March, Hx of cervical spine surgery Z98.89 [place] [address] [address] March, [place] [address] [address] Feb, Anxiety associated with depr ession F41.8 [place] [address] [address] Jan, Anxiety associated with depr ession F41.8 [place] [address] [place] [id number] [address] [place] [address] Dec, [place] [address] [address] Dec, [place] [address] [address] Dec, Essential hypertension I10 ; Erectile dysfunction, unspecified erectile dysfunction type N52.9 and Hyperlipemia E78.5 [place] [address] [address] 30 Nov, 2016 Essential hypertension I10 ; Hx of cervical spine surgery Z98.89 ; Erectile dysfunction, unspecified erectile dysfunction type N52.9 ; Idiopathic peripheral neuropathy G60.9 ; Anger R45.4 ; Anxiety associated with depression F41.8 ; Hyperlipemia E78.5 ; Wheezing R06.2 and Has daytime drowsiness R40.0 [place] [address] [address] Nov, [place] [address] [address] Nov, [place] [address] [address] Sep, [place] [address] [address] Sep, Acute midline low back pain without sciatica M54.5 [place] [address] [address] Sep, Acute bilateral low back ekta n without sciatica M54.5 [place] [address] [address] Aug, [place] [address] [address] Jun, Wheezing R06.2 ; Candidal de rmatitis B37.2 ; Essential hypertension I10 ; Erectile dysfunction, unspecified erectile dysfunction type N52.9 ; Idiopathic peripheral neuropathy G60.9 ; Mixed hyperlipidemia E78.2 and Other stimulant dependence, 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 [place] [address] [address] March, Essential hypertension I10 ; Hx of cervical spine surgery Z98.89 ; Idiopathic peripheral neuropathy G60.9 ; Mixed hyperlipidemia E78.2 ; Anger R45.4 ; Drug-induced erectile dysfunction N52.2 and Gastroesophageal reflux disease with esophagitis K21.0 [place] [address] [place] [id number] [address] [place] [address] Feb, [place] [address] [address] Dec, Low back pain M54.5 [place] [address] [address] Dec, [place] [address] [address] Dec, Unspecified mood [affective] disorder F39 ; Anxiety disorder, unspecified F41.9 ; Other stimulant dependence, 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 and Cannabis dependence, uncomplicated F12.20 [place] [address] [address] Dec, Essential hypertension I10 ; Hyperlipemia E78.5 ; Erectile dysfunction, unspecified erectile dysfunction type N52.9 ; Anger R45.4 ; Mixed hyperlipidemia E78.2 ; Anxiety associated with depression F41.8 ; Elevated serum creatinine R79.89 ; 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 and Marijuana abuse F12.10 [place] [address] [address] Oct, Essential hypertension I10 ; Idiopathic peripheral neuropathy G60.9 ; Low back pain M54.5 ; Hx of cervical spine surgery Z98.89 ; Erectile dysfunction, unspecified erectile dysfunction type N52.9 ; Anger R45.4 ; Mixed hyperlipidemia E78.2 and Anxiety associated with depression F41.8 [place] [address] [place] [id number] [address] [place] [address] Oct, Unspecified mood [affective] disorder F39 and Anxiety disorder, unspecified F41.9 [place] [address] [address] Oct, Hyperlipemia E78.5 [place] [address] [address] Oct, Essential hypertension I10 [place] [address] [id number] [address] [place] [address] Oct, [facility] [address] [facility] [id number] [address] [place] [address] Oct, Essential hypertension I10 ; Idiopathic peripheral neuropathy G60.9 ; Low back pain M54.5 ; Hx of cervical spine surgery Z98.89 ; Pain in right hand M79.641 ; Pain of left hand M79.642 ; Pain in left foot M79.672 ; Pain in right foot M79.671 ; Erectile dysfunction, unspecified erectile dysfunction type N52.9 and Anger R45.4 [facility] [address] [id number] [address] [place] [address] Sep, [facility] [address] [id number] [address] [place] [address] Jul, [facility] [address] [id number] [address] [place] [address] Jun, [facility] [address] [id number] [address] [place] [address] May, [facility] [address] [facility] [id number] [address] [place] [address] Apr, [facility] [address] [facility] [id number] [address] [place] [address] March, [facility] [address] [id number] [address] [place] [address] Feb, [facility] [address] [id number] [address] [place] [address] Feb, [facility] [address] [id number] [address] [place] [address] Jan, [facility] [address] [id number] [address] [place] [address] Jan, [facility] [address] [id number] [address] [place] [address] Nov, [facility] [address] [id number] [address] [place] [address], [place] [address] Nov, [facility] [address] [id number] [address] [place] [address], [place] [address] Nov, [facility] [address] [id number] [address] [place] [address], [place] [address] Nov, [facility] [address] [id number] [address] [place] [address], [place] [address] Nov, [facility] [address] [id number] [address] [place] [address], [place] [address] Nov, [facility] [address] [id number] [address] [place] [address], [place] [address] Oct, [facility] [address] [id number] [address] [place] [address], [place] [address] Oct, [facility] [address] [id number] [address] [place] [address], [place] [address] Oct, [facility] [address] [id number] [address] [place] [address], [place] [address] Oct, [facility] [address] [id number] [address] [place] [address], [place] [address] Sep, [facility] [address] [id number] [address] [place] [address], [place] [address] Sep, [facility] [address] [id number] [address] [place] [address], [place] [address] Sep, [facility] [address] [id number] [address] [place] [address], [place] [address] Sep, [facility] [address] [id number] [address] [place] [address], [place] [address] Sep, [facility] [address] [id number] [address] [place] [address], [place] [address] 16 Aug, 2014 [facility] [address] [id number] [address] [address] 16 Aug, 2014 [facility] [address] [id number] [address] [place] [address], [place] [address] 15 Aug, 2014 [facility] [address] [id number] [address] [place] [address], [place] [address] 15 Aug, 2014 [facility] [address] [id number] [address] [place] [address], [place] [address] 15 Aug, 2014 [facility] [address] [id number] [address] [place] [address] 15 Aug, 2014 [facility] [address] [id number] [address] [place] [address], [place] [address] 13 Aug, 2014 [facility] [address] [id number] [address] [place] [address] 07 Aug, 2014 [facility] [address] [id number] [address] [place] [address], [place] [address] 07 Aug, 2014 [facility] [address] [id number] [address] [place] [address] 06 Aug, 2014 [facility] [address] [id number] [address] [place] [address], [place] [address] 06 Aug, 2014 [facility] [address] [id number] [address] [place] [address], [place] [address] 19 Jul, 2014 [facility] [address] [id number] [address] [place] [address] 19 Jul, 2014 [facility] [address] [id number] [address] [place] [address] 18 Jul, 2014 [facility] [address] [id number] [address] [place] [address], [place] [address] 18 Jul, 2014 [facility] [address] [id number] [address] [place] [address], [place] [address] Jun, [facility] [address] [id number] [address] [place] [address] Jun, [facility] [address] [id number] [address] [place] [address], [place] [address] Jun, [facility] [address] [id number] [address] [place] [address], [place] [address] Jun, [facility] [address] [id number] [address] [place] [address], [place] [address] Jun, [facility] [address] [id number] [address] [place] [address], [place] [address] Jun, [facility] [address] [id number] [address] [place] [address], [place] [address] May, [facility] [address] [id number] [address] [place] [address], [place] [address] May, [facility] [address] [id number] [address] [place] [address], [place] [address] May, [facility] [address] [id number] [address] [place] [address], [place] [address] May, [facility] [address] [id number] [address] [place] [address], [place] [id number] May, [facility] [address] [id number] [address] [place] [address], [place] [address] May, [facility] [address] [id number] [address] [place] [address], [place] [address] May, [facility] [address] [id number] [address] [place] [address], [place] [address] May, [facility] [address] [id number] [address] [place] [address], [place] [address] May, [facility] [address] [id number] [address] [place] [address], [place] [address] May, [facility] [address] [id number] [address] [place] [address], [place] [address] May, [facility] [address] [id number] [address] [place] [address], [place] [address] May, [facility] [address] [id number] [address] [place] [address], [place] [address] Apr, [facility] [address] [id number] [address] [place] [address], [place] [address] Apr, [facility] [address] [id number] [address] [place] [address], [place] [address] March, [facility] [address] [id number] [address] [place] [address], [place] [address] March, [facility] [address] [id number] [address] [place] [address], [place] [address] March, [facility] [address] [id number] [address] [place] [address], [place] [address] March, [facility] [address] [id number] [address] [place] [address], [place] [address] Feb, [facility] [address] [id number] [address] [place] [address], [place] [address] Feb, [facility] [address] [id number] [address] [place] [address], [place] [address] Jan, [facility] [address] [id number] [address] [place] [address], [place] [address] Jan, [facility] [address] [id number] [address] [place] [address], [place] [address] Jan, [facility] [address] [id number] [address] [place] [address], [place] [address] Jan, [facility] [address] [id number] [address] [place] [address], [place] [address] Dec, [facility] [address] [id number] [address] [place] [address], [place] [address] Dec, [facility] [address] [id number] [address] [place] [address], [place] [address] Nov, [facility] [address] [id number] [address] [place] [address] Nov, [facility] [address] [id number] [address] [place] [address], [place] [address] Nov, [facility] [address] [id number] [address] [place] [address], [place] [address] Nov, [facility] [address] [id number] [address] [place] [address], [place] [address] Oct, [facility] [address] [id number] [address] [place] [address], [place] [address] Oct, [facility] [address] [id number] [address] [place] [address], [place] [address] Sep, [facility] [address] [id number] [address] [place] [address], [place] [address] Sep, [facility] [address] [id number] [address] [place] [address], [place] [address] Jul, [facility] [address] [id number] [address] [place] [address], [place] [address] Jul, [facility] [address] [id number] [address] [place] [address], [place] [address] Jul, [facility] [address] [id number] [address] [place] [address], [place] [address] Jun, [facility] [address] [id number] [address] [place] [address], [place] [address] Jun, [facility] [address] [id number] [address] [place] [address], [place] [address] May, [facility] [address] [id number] [address] [place] [address], [place] [phone] May, [facility] [address] [id number] [address] [place] [address], [place] [id number] May, [facility] [address] [id number] [address] [place] [address], [place] [address] March, [facility] [address] [id number] [address] [place] [id number] 05 Jan, 2013 [facility] [address] [id number] [address] [place] [phone] 05 Jan, 2013 [facility] [address] [id number] [address] [place] [id number] Jan, [facility] [address] [id number] [address] [place] [phone] Dec, [facility] [address] [id number] [address] [place] [phone] May, [facility] [address] [id number] [address] [place] [phone] March, [facility] [address] [id number] [address] [place] [phone] Jan, [facility] [address] [id number] [address] [place] [id number] Aug, [facility] [address] [id number] [address] [place] [phone] Aug, [facility] [address] [id number] [address] [place] [phone] Aug, [facility] [address] [id number] [address] [place] [phone] Jun, [facility] [address] [id number] [address] [place] [id number] May, [facility] [address] [id number] [address] [place] [phone] Oct, IMMUNIZATIONS No Known Immunizations SOCIAL HISTORY Never Assessed REASON FOR VISIT Quincy Conway follow up, left hip replacment-Jose LOBO PLAN OF CARE VITAL SIGNS Height 66 in 2018-05-26 Weight 221.5 lbs 2018-05-26 Temperature 98.0 degrees Fahrenheit 2018-05-26 Heart Rate 98 bpm 2018-05-26 Respiratory Rate 18 2018-05-26 BMI 35.75 kg/m2 2018-05-26 Blood pressure systolic 124 mmHg 2018-05-26 Blood pressure diastolic 88 mmHg 2018-05-26 MEDICATIONS Medication Instructions Dosage Frequency Start Date End Date Duration S tatus Norvasc 5 mg Orally Once a day 1 tablet 24h Dec, 30 days Active Neurontin 800 MG Orally 3 times a day 1 tablet 8h 3 0 days Active HydrOXYzine Pamoate 25 MG Orally every 8 hrs 1 capsule as needed 8h May, 30 day(s) Active Citalopram Hydrobromide 20 MG Orally Once a day 1 tablet 24h Feb, 30 day(s) Active Chlorhexidine Gluconate 0.12 % Mouth twice a day- morning and ni ght as directed 7 days Not-Taking Lisinopril 10 mg Orally Once a day 1 tablet 24h Oct, Active Trazodone HCl 150 MG Orally Once a day 1 tablet at bedtime 24h 2017 Active Flexeril 10 mg Orally Three times a day 1 tablet as needed 8h 30 Active Indomethacin 25 MG Orally Twice a day 1 capsule with food or milk 12h Not-Taking Viagra 100 MG Orally Once a day as needed 1 tablet as needed Not-Taking RESULTS No Results PROCEDURES No Known procedures [...]
--- OUTSIDE RECORDS SUMMARY | 2020-02-05 11:04 | XMS REPORT ---
Author Author Jelani ESPARZA Organization [facility] Address [address] [place] [address] Care Team Providers Care Clearance Cutter Name Role Phone JAYME ESPARZA Unavailable PROBLEMS Type Condition ICD9-CM Code XOQ88-EC Code Onset Dates Condition S tatus SNOMED Code Problem Hx of cervical spine surgery Z98.89 A ctive 265869724 Problem Drug-induced erectile dysfunction N52.2 Active 213015899 Problem Anger R45.4 Active 51188611 Problem Gastroesophageal reflux disease with esophagitis K 21.0 Active 491546592 Problem Erectile dysfunction, unspecified erectile dysfunction typ e N52.9 Active 165403295 Problem Candidal dermatitis B37.2 Active 39888815 Problem Psychophysiological insomnia F51.04 A ctive 928765896 Problem Wheezing R06.2 Active 49195431 Problem Anxiety F41.9 Active 74400227 Problem Primary osteoarthritis of left hip M16.12 Active 532222057 Problem Idiopathic peripheral neuropathy G60.9 Active 79965215 Problem Low back pain M54.5 Active 088042 005 Problem Pain in right foot M79.671 Active 4 5037781 Problem Pain in right knee M25.561 Active 3 96409362805611 Problem Pure hypercholesterolemia E78.00 Acti ve 254917668 Problem Other chronic pain G89.29 Active 8 9272820 Problem Mood disorder F39 Active 971284 05 Problem Anxiety disorder, unspecified F41.9 Active 931792403 Problem Unspecified mood [affective] disorder F39 Active 330938471 Problem Essential hypertension I10 Active 40500664 Problem Mixed hyperlipidemia E78.2 Active 775394206 Problem Other stimulant dependence, 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 Active 555394729 Problem Cannabis dependence, uncomplicated F12.20 Active 89257015 Problem 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 Active 225355963 Problem Marijuana abuse F12.10 Active 3734 4009 ALLERGIES No Information ENCOUNTERS Encounter Location Date Diagnosis [facility] [address] [facility] [id number] [address] [place] [address] Jun, [facility] [address] [id number] [address] [place] [address] Jun, Other chronic pain G89.29 an d Pain in right knee M25.561 [facility] [address] [id number] [address] [place] [address] May, Primary osteoarthritis of le ft hip M16.12 ; Pain in left hip M25.552 ; Other acute postprocedural pain G89.18 and Anxiety F41.9 [facility] [address] [id number] [address] [place] [address] May, [facility] [address] [id number] [address] [place] [address] Apr, Pain in right knee M25.561 a nd Mood disorder F39 [facility] [address] [id number] [address] [place] [address] Apr, [facility] [address] [id number] [address] [place] [id number] March, [facility] [address] [id number] [address] [place] [id number] March, Encounter for dental exam an d cleaning w/o abnormal findings Z01.20 [facility] [address] [id number] [address] [place] [id number] March, Dental examination Z01.20 [facility] [address] [id number] [address] [place] [id number] March, Dental examination Z01.20 [facility] [address] [id number] [address] [place] [address] March, [facility] [address] [id number] [address] [place] [address] March, [facility] [address] [id number] [address] [place] [address] Feb, [facility] [address] [id number] [address] [place] [address] Feb, Primary osteoarthritis of le ft hip M16.12 [facility] [address] [id number] [address] [place] [address] 16 Feb, 2018 Other chronic pain G89.29 an d Pain in left hip M25.552 [facility] [address] [id number] [address] [place] [address] Feb, Acute pain of left hip M25.5 52 [facility] [address] [id number] [address] [place] [address] Feb, Mood disorder F39 and Pain i n right knee M25.561 [facility] [address] [id number] [address] [place] [address] Jan, Other chronic pain G89.29 [facility] [address] [id number] [address] [place] [address] Jan, Mood disorder F39 [facility] [address] [id number] [address] [place] [address] Jan, Pain in right knee M25.561 [facility] [address] [id number] [address] [place] [address] Jan, Pain in left hip M25.552 and Other chronic pain G89.29 [facility] [address] [id number] [address] [place] [address] Jan, Acute pain of left hip M25.5 52 [facility] [address] [id number] [address] [place] [address] Jan, Acute pain of left hip M25.5 52 [facility] [address] [id number] [address] [place] [address] Jan, Mood disorder F39 and Acute pain of left hip M25.552 [facility] [address] [id number] [address] [place] [address] Nov, Mood disorder F39 [place] [id number] [place] [address] Oct, Essential hypertension I10 ; Mixed hyperlipidemia E78.2 and Low back pain M54.5 [facility] [id number] [place] [id number] May, [place] [address] [address] Apr, Essential hypertension I10 ; Anger R45.4 ; Mixed hyperlipidemia E78.2 ; Drug-induced erectile dysfunction N52.2 ; Gastroesophageal reflux disease with esophagitis K21.0 ; Pure hypercholesterolemia E78.00 ; Pain in right knee M25.561 ; Psychophysiological insomnia F51.04 and Wheezing R06.2 [place] [address] [place] [address] March, Hx of cervical spine surgery Z98.89 [place] [address] [address] March, [place] [address] [address] Feb, Anxiety associated with depr ession F41.8 [place] [address] [place] [id number] [address] [place] [address] Jan, Anxiety associated with depr ession F41.8 [place] [address] [place] [address] Dec, [place] [address] [place] [id number] [address] [place] [address] Dec, [place] [address] [address] Dec, Essential hypertension I10 ; Erectile dysfunction, unspecified erectile dysfunction type N52.9 and Hyperlipemia E78.5 [place] [address] [place] [id number] [address] [place] [address] Nov, Essential hypertension I10 ; Hx of cervical spine surgery Z98.89 ; Erectile dysfunction, unspecified erectile dysfunction type N52.9 ; Idiopathic peripheral neuropathy G60.9 ; Anger R45.4 ; Anxiety associated with depression F41.8 ; Hyperlipemia E78.5 ; Wheezing R06.2 and Has daytime drowsiness R40.0 [facility] [address] [place] [id number] [address] [place] [address] Nov, [facility] [address] [facility] [id number] [place] [address] Nov, [facility] [address] [place] [id number] [address] [place] [address] Sep, [facility] [address] [place] [id number] [place] [address] Sep, Acute midline low back pain without sciatica M54.5 [facility] [address] [place] [id number] [place] [address] Sep, Acute bilateral low back ekta n without sciatica M54.5 [facility] [address] [facility] [id number] [address] [place] [address] Aug, [facility] [address] [place] [id number] [place] [address] Jun, Wheezing R06.2 ; Candidal de rmatitis B37.2 ; Essential hypertension I10 ; Erectile dysfunction, unspecified erectile dysfunction type N52.9 ; Idiopathic peripheral neuropathy G60.9 ; Mixed hyperlipidemia E78.2 and Other stimulant dependence, 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 [facility] [address] [facility] [id number] [address] [place] [address] March, Essential hypertension I10 ; Hx of cervical spine surgery Z98.89 ; Idiopathic peripheral neuropathy G60.9 ; Mixed hyperlipidemia E78.2 ; Anger R45.4 ; Drug-induced erectile dysfunction N52.2 and Gastroesophageal reflux disease with esophagitis K21.0 [facility] [address] [place] [id number] [address] [place] [address] Feb, [facility] [address] [place] [address] Dec, Low back pain M54.5 [place] [address] [address] Dec, [place] [address] [address] Dec, Unspecified mood [affective] disorder F39 ; Anxiety disorder, unspecified F41.9 ; Other stimulant dependence, 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 and Cannabis dependence, uncomplicated F12.20 [place] [address] [address] Dec, Essential hypertension I10 ; Hyperlipemia E78.5 ; Erectile dysfunction, unspecified erectile dysfunction type N52.9 ; Anger R45.4 ; Mixed hyperlipidemia E78.2 ; Anxiety associated with depression F41.8 ; Elevated serum creatinine R79.89 ; 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 and Marijuana abuse F12.10 [place] [address] [address] Oct, Essential hypertension I10 ; Idiopathic peripheral neuropathy G60.9 ; Low back pain M54.5 ; Hx of cervical spine surgery Z98.89 ; Erectile dysfunction, unspecified erectile dysfunction type N52.9 ; Anger R45.4 ; Mixed hyperlipidemia E78.2 and Anxiety associated with depression F41.8 [place] [address] [address] Oct, Unspecified mood [affective] disorder F39 and Anxiety disorder, unspecified F41.9 [place] [address] [place] [id number] [address] [place] [address] Oct, Hyperlipemia E78.5 [place] [address] [place] [id number] [place] [address] Oct, Essential hypertension I10 [place] [address] [address] Oct, [place] [address] [id number] [address] [place] [address] Oct, Essential hypertension I10 ; Idiopathic peripheral neuropathy G60.9 ; Low back pain M54.5 ; Hx of cervical spine surgery Z98.89 ; Pain in right hand M79.641 ; Pain of left hand M79.642 ; Pain in left foot M79.672 ; Pain in right foot M79.671 ; Erectile dysfunction, unspecified erectile dysfunction type N52.9 and Anger R45.4 [facility] [address] [id number] [address] [place] [address] Sep, [facility] [address] [id number] [address] [place] [address] Jul, [facility] [address] [id number] [address] [place] [address] Jun, [facility] [address] [id number] [address] [place] [address] May, [facility] [address] [id number] [address] [place] [address] Apr, [facility] [address] [id number] [address] [place] [address] March, [facility] [address] [id number] [address] [place] [address] Feb, [facility] [address] [id number] [address] [place] [address] Feb, [facility] [address] [id number] [address] [place] [address] Jan, [facility] [address] [id number] [address] [place] [address] Jan, [facility] [address] [id number] [address] [place] [address] Nov, [facility] [address] [facility] [id number] [address] [place] [address] Nov, [facility] [address] [id number] [address] [place] [address], [place] [address] Nov, [facility] [address] [id number] [address] [place] [address], [place] [address] Nov, [facility] [address] [id number] [address] [place] [address], [place] [address] Nov, [facility] [address] [id number] [address] [place] [address], [place] [address] Nov, [facility] [address] [id number] [address] [place] [address], [place] [address] Oct, [facility] [address] [id number] [address] [place] [address], [place] [address] Oct, [facility] [address] [id number] [address] [place] [address], [place] [address] Oct, [facility] [address] [id number] [address] [place] [address], [place] [address] Oct, [facility] [address] [id number] [address] [place] [address], [place] [address] Sep, [facility] [address] [id number] [address] [place] [address], [place] [address] Sep, [facility] [address] [id number] [address] [place] [address], [place] [address] Sep, [facility] [address] [id number] [address] [place] [address] Sep, [facility] [address] [id number] [address] [place] [address], [place] [address] Sep, [facility] [address] [id number] [address] [place] [address], [place] [address] Aug, [facility] [address] [id number] [address] [place] [address] Aug, [facility] [address] [id number] [address] [place] [address] 15 Aug, 2014 [facility] [address] [id number] [address] [place] [address], [place] [address] 15 Aug, 2014 [facility] [address] [id number] [address] [place] [address] 15 Aug, 2014 [facility] [address] [id number] [address] [place] [address], [place] [address] 15 Aug, 2014 [facility] [address] [id number] [address] [place] [address], [place] [address] 13 Aug, 2014 [facility] [address] [id number] [address] [place] [address], [place] [address] 07 Aug, 2014 [facility] [address] [id number] [address] [place] [address], [place] [address] 07 Aug, 2014 [facility] [address] [id number] [address] [place] [address], [place] [address] Aug, [facility] [address] [id number] [address] [place] [address], [place] [address] 06 Aug, 2014 [facility] [address] [id number] [address] [place] [address], [place] [address] 19 Jul, 2014 [facility] [address] [id number] [address] [place] [address], [place] [address] 19 Jul, 2014 [facility] [address] [id number] [address] [place] [address], [place] [address] 18 Jul, 2014 [facility] [address] [id number] [address] [place] [address] 18 Jul, 2014 [facility] [address] [id number] [address] [place] [address], [place] [address] Jun, [facility] [address] [id number] [address] [place] [address], [place] [address] Jun, [facility] [address] [id number] [address] [place] [address], [place] [address] Jun, [facility] [address] [id number] [address] [place] [address], [place] [address] Jun, [facility] [address] [id number] [address] [place] [address], [place] [address] Jun, [facility] [address] [id number] [address] [place] [address], [place] [address] Jun, [facility] [address] [id number] [address] [place] [address], [place] [address] May, [facility] [address] [id number] [address] [place] [address], [place] [address] May, [facility] [address] [id number] [address] [place] [address], [place] [address] May, [facility] [address] [id number] [address] [place] [address], [place] [address] May, [facility] [address] [id number] [address] [place] [address], [place] [id number] May, [facility] [address] [id number] [address] [place] [address], [place] [address] May, [facility] [address] [id number] [address] [place] [address], [place] [address] May, [facility] [address] [id number] [address] [place] [address], [place] [address] May, [facility] [address] [id number] [address] [place] [address], [place] [address] May, [facility] [address] [id number] [address] [place] [address], [place] [address] May, [facility] [address] [id number] [address] [place] [address], [place] [address] May, [facility] [address] [id number] [address] [place] [address], [place] [address] May, [facility] [address] [id number] [address] [place] [address], [place] [address] Apr, [facility] [address] [id number] [facility] [place] [address] Apr, [facility] [address] [id number] [address] [place] [address], [place] [address] March, [facility] [address] [id number] [address] [place] [address], [place] [address] March, [facility] [address] [id number] [address] [place] [address], [place] [address] March, [facility] [address] [id number] [address] [place] [address], [place] [address] March, [facility] [address] [id number] [address] [place] [address], [place] [address] Feb, [facility] [address] [id number] [address] [place] [address], [place] [address] Feb, [facility] [address] [id number] [address] [place] [address], [place] [address] Jan, [facility] [address] [id number] [address] [place] [address], [place] [address] Jan, [facility] [address] [id number] [address] [place] [address], [place] [address] Jan, [facility] [address] [id number] [address] [place] [address], [place] [address] Jan, [facility] [address] [id number] [address] [place] [address], [place] [address] Dec, [facility] [address] [id number] [address] [place] [address], [place] [address] Dec, [facility] [address] [id number] [address] [place] [address], [place] [address] Nov, [facility] [address] [id number] [address] [place] [address], [place] [address] Nov, [facility] [address] [id number] [address] [place] [address], [place] [address] Nov, [facility] [address] [id number] [address] [place] [address], [place] [address] Nov, [facility] [address] [id number] [address] [place] [address], [place] [address] Oct, [facility] [address] [id number] [address] [place] [address], [place] [address] Oct, [facility] [address] [id number] [address] [place] [address], [place] [address] Sep, [facility] [address] [id number] [address] [place] [address], [place] [address] Sep, [facility] [address] [id number] [address] [place] [address], [place] [address] Jul, [facility] [address] [id number] [address] [place] [address], [place] [address] Jul, [facility] [address] [id number] [address] [place] [address], [place] [address] Jul, [facility] [address] [id number] [address] [place] [address], [place] [address] Jun, [facility] [address] [id number] [address] [place] [address], [place] [address] Jun, [facility] [address] [id number] [address] [place] [address], [place] [address] May, [facility] [address] [id number] [address] [place] [address], [place] [address] May, [facility] [address] [id number] [address] [place] [address], [place] [address] May, [facility] [address] [id number] [address] [place] [address], [place] [id number] March, [facility] [address] [id number] [address] [place] [address], [place] [id number] Jan, [facility] [address] [id number] [address] [place] [id number] Jan, [facility] [address] [id number] [address] [place] [id number] Jan, [facility] [address] [id number] [address] [place] [id number] Dec, [facility] [address] [id number] [address] [place] [id number] May, [facility] [address] [id number] [address] [place] [id number] March, [facility] [address] [id number] [address] [place] [id number] Jan, [facility] [address] [id number] [address] [place] [id number] Aug, [facility] [address] [id number] [address] [place] [id number] Aug, [facility] [address] [id number] [address] [place] [id number] Aug, [facility] [address] [id number] [address] [place] [id number] Jun, [facility] [address] [id number] [address] [place] [id number] May, [facility] [address] [id number] [address] [place] [id number] Oct, IMMUNIZATIONS No Known Immunizations SOCIAL HISTORY Never Assessed REASON FOR VISIT Xray results PLAN OF CARE VITAL SIGNS MEDICATIONS Unknown [...]
--- OUTSIDE RECORDS SUMMARY | 2020-02-05 11:04 | XMS REPORT ---
Author Author Jelani ESPARZA Organization [facility] Address [address] [place] [address] Care Team Providers Care Telesales Consultant Name Role Phone JAYME ESPARZA Unavailable PROBLEMS Type Condition ICD9-CM Code [id number] Code Onset Dates Condition S tatus SNOMED Code Problem Hx of cervical spine surgery Z98.89 A ctive 519299206 Problem Drug-induced erectile dysfunction N52.2 Active 802950314 Problem Anger R45.4 Active 37657757 Problem Gastroesophageal reflux disease with esophagitis K 21.0 Active 158131351 Problem Erectile dysfunction, unspecified erectile dysfunction typ e N52.9 Active 357337053 Problem Candidal dermatitis B37.2 Active 32208041 Problem Psychophysiological insomnia F51.04 A ctive 367951942 Problem Wheezing R06.2 Active 38267207 Problem Anxiety F41.9 Active 98372961 Problem Primary osteoarthritis of left hip M16.12 Active 256005472 Problem Idiopathic peripheral neuropathy G60.9 Active 97541639 Problem Low back pain M54.5 Active 393723 005 Problem Pain in right foot M79.671 Active 4 9911180 Problem Pain in right knee M25.561 Active 3 06949204791809 Problem Pure hypercholesterolemia E78.00 Acti ve 315340014 Problem Other chronic pain G89.29 Active 8 5118744 Problem Mood disorder F39 Active 425014 05 Problem Anxiety disorder, unspecified F41.9 Active 522770035 Problem Unspecified mood [affective] disorder F39 Active 033539605 Problem Essential hypertension I10 Active 43195987 Problem Mixed hyperlipidemia E78.2 Active 428146008 Problem Other stimulant dependence, 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 Active 144532920 Problem Cannabis dependence, uncomplicated F12.20 Active 58846793 Problem 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 Active 691206549 Problem Marijuana abuse F12.10 Active 3734 4009 ALLERGIES No Information ENCOUNTERS Encounter Location Date Diagnosis [facility] [address] [facility] [id number] [address] [place] [id number] Jun, [facility] [address] [id number] [address] [place] [phone] Jun, Other chronic pain G89.29 an d Pain in right knee M25.561 [facility] [address] [id number] [address] [place] [id number] May, Primary osteoarthritis of le ft hip M16.12 ; Pain in left hip M25.552 ; Other acute postprocedural pain G89.18 and Anxiety F41.9 [facility] [address] [id number] [address] [place] [phone] May, [facility] [address] [id number] [address] [place] [id number] Apr, Pain in right knee M25.561 a nd Mood disorder F39 [facility] [address] [id number] [address] [place] [phone] Apr, [facility] [address] [id number] [address] [place] [address] [id number] March, [facility] [address] [id number] [address] [place] [address] [id number] March, Encounter for dental exam an d cleaning w/o abnormal findings Z01.20 [facility] [address] [id number] [address] [place] [address] [id number] March, Dental examination Z01.20 [facility] [address] [id number] [address] [place] [address] [id number] March, Dental examination Z01.20 [facility] [address] [id number] [address] [place] [id number] March, [facility] [address] [id number] [address] [place] [phone] March, [facility] [address] [id number] [address] [place] [phone] Feb, [facility] [address] [id number] [address] [place] [phone] Feb, Primary osteoarthritis of le ft hip M16.12 [facility] [address] [id number] [address] [place] [phone] 16 Feb, 2018 Other chronic pain G89.29 an d Pain in left hip M25.552 [facility] [address] [id number] [address] [place] [phone] Feb, Acute pain of left hip M25.5 52 [facility] [address] [id number] [address] [place] [id number] Feb, Mood disorder F39 and Pain i n right knee M25.561 [facility] [address] [id number] [address] [place] [phone] Jan, Other chronic pain G89.29 [facility] [address] [id number] [address] [place] [phone] Jan, Mood disorder F39 [facility] [address] [id number] [address] [place] [phone] Jan, Pain in right knee M25.561 [facility] [address] [id number] [address] [place] [id number] Jan, Pain in left hip M25.552 and Other chronic pain G89.29 [facility] [address] [id number] [address] [place] [phone] Jan, Acute pain of left hip M25.5 52 [facility] [address] [id number] [address] [place] [id number] Jan, Acute pain of left hip M25.5 52 [facility] [address] [id number] [address] [place] [id number] Jan, Mood disorder F39 and Acute pain of left hip M25.552 [facility] [address] [id number] [address] [place] [phone] Nov, Mood disorder F39 [place] [id number] [place] [id number] Oct, Essential hypertension I10 ; Mixed hyperlipidemia E78.2 and Low back pain M54.5 [facility] [id number] [place] [address] [id number] May, [place] [address] [id number] Apr, Essential hypertension I10 ; Anger R45.4 ; Mixed hyperlipidemia E78.2 ; Drug-induced erectile dysfunction N52.2 ; Gastroesophageal reflux disease with esophagitis K21.0 ; Pure hypercholesterolemia E78.00 ; Pain in right knee M25.561 ; Psychophysiological insomnia F51.04 and Wheezing R06.2 [place] [address] [address] [place] [phone] March, Hx of cervical spine surgery Z98.89 [place] [address] [id number] March, [place] [address] [id number] Feb, Anxiety associated with depr ession F41.8 [place] [address] [address] [place] [id number] [address] [place] [id number] Jan, Anxiety associated with depr ession F41.8 [place] [id number] [place] [phone] Dec, [place] [address] [place] [id number] [address] [place] [phone] Dec, [place] [address] [address] Dec, Essential hypertension I10 ; Erectile dysfunction, unspecified erectile dysfunction type N52.9 and Hyperlipemia E78.5 [place] [address] [address] [place] [id number] [address] [place] [phone] Nov, Essential hypertension I10 ; Hx of cervical spine surgery Z98.89 ; Erectile dysfunction, unspecified erectile dysfunction type N52.9 ; Idiopathic peripheral neuropathy G60.9 ; Anger R45.4 ; Anxiety associated with depression F41.8 ; Hyperlipemia E78.5 ; Wheezing R06.2 and Has daytime drowsiness R40.0 [facility] [address] [place] [id number] [address] [place] [phone] Nov, [facility] [address] [facility] [id number] [place] [phone] Nov, [facility] [address] [place] [id number] [address] [place] [phone] Sep, [facility] [address] [place] [id number] [place] [phone] Sep, Acute midline low back pain without sciatica M54.5 [facility] [address] [place] [id number] [place] [phone] Sep, Acute bilateral low back ekta n without sciatica M54.5 [facility] [address] [facility] [id number] [address] [place] [phone] Aug, [facility] [address] [place] [id number] [place] [phone] Jun, Wheezing R06.2 ; Candidal de rmatitis B37.2 ; Essential hypertension I10 ; Erectile dysfunction, unspecified erectile dysfunction type N52.9 ; Idiopathic peripheral neuropathy G60.9 ; Mixed hyperlipidemia E78.2 and Other stimulant dependence, 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 [facility] [address] [facility] [id number] [address] [place] [id number] March, Essential hypertension I10 ; Hx of cervical spine surgery Z98.89 ; Idiopathic peripheral neuropathy G60.9 ; Mixed hyperlipidemia E78.2 ; Anger R45.4 ; Drug-induced erectile dysfunction N52.2 and Gastroesophageal reflux disease with esophagitis K21.0 [facility] [address] [place] [id number] [address] [place] [id number] Feb, [facility] [address] [place] [phone] Dec, Low back pain M54.5 [place] [address] [id number] Dec, [place] [address] [id number] Dec, Unspecified mood [affective] disorder F39 ; Anxiety disorder, unspecified F41.9 ; Other stimulant dependence, 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 and Cannabis dependence, uncomplicated F12.20 [place] [address] [id number] Dec, Essential hypertension I10 ; Hyperlipemia E78.5 ; Erectile dysfunction, unspecified erectile dysfunction type N52.9 ; Anger R45.4 ; Mixed hyperlipidemia E78.2 ; Anxiety associated with depression F41.8 ; Elevated serum creatinine R79.89 ; 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 and Marijuana abuse F12.10 [place] [address] [address] Oct, Essential hypertension I10 ; Idiopathic peripheral neuropathy G60.9 ; Low back pain M54.5 ; Hx of cervical spine surgery Z98.89 ; Erectile dysfunction, unspecified erectile dysfunction type N52.9 ; Anger R45.4 ; Mixed hyperlipidemia E78.2 and Anxiety associated with depression F41.8 [place] [address] [address] Oct, Unspecified mood [affective] disorder F39 and Anxiety disorder, unspecified F41.9 [place] [address] [address] [place] [id number] [address] [place] [phone] Oct, Hyperlipemia E78.5 [place] [address] [place] [id number] [place] [phone] Oct, Essential hypertension I10 [place] [address] [address] Oct, [place] [address] [id number] [address] [place] [phone] Oct, Essential hypertension I10 ; Idiopathic peripheral neuropathy G60.9 ; Low back pain M54.5 ; Hx of cervical spine surgery Z98.89 ; Pain in right hand M79.641 ; Pain of left hand M79.642 ; Pain in left foot M79.672 ; Pain in right foot M79.671 ; Erectile dysfunction, unspecified erectile dysfunction type N52.9 and Anger R45.4 [facility] [address] [id number] [address] [place] [phone] Sep, [facility] [address] [id number] [address] [place] [phone] Jul, [facility] [address] [id number] [address] [place] [phone] Jun, [facility] [address] [id number] [address] [place] [id number] May, [facility] [address] [id number] [address] [place] [phone] Apr, [facility] [address] [id number] [address] [place] [phone] March, [facility] [address] [id number] [address] [place] [phone] Feb, [facility] [address] [id number] [address] [place] [phone] Feb, [facility] [address] [id number] [address] [place] [phone] Jan, [facility] [address] [id number] [address] [place] [phone] Jan, [facility] [address] [id number] [address] [place] [phone] Nov, [facility] [address] [facility] [id number] [address] [place] [phone] Nov, [facility] [address] [id number] [address] [place] [address], [place] [id number] Nov, [facility] [address] [id number] [address] [place] [address], [place] [address] Nov, [facility] [address] [id number] [address] [place] [address], [place] [address] Nov, [facility] [address] [id number] [address] [place] [address], [place] [id number] Nov, [facility] [address] [id number] [address] [place] [address], [place] [address] Oct, [facility] [address] [id number] [address] [place] [address], [place] [id number] Oct, [facility] [address] [id number] [address] [place] [address], [place] [address] Oct, [facility] [address] [id number] [address] [place] [address], [place] [id number] Oct, [facility] [address] [id number] [address] [place] [address], [place] [address] Sep, [facility] [address] [id number] [address] [place] [address], [place] [id number] Sep, [facility] [address] [id number] [address] [place] [address], [place] [id number] Sep, [facility] [address] [id number] [address] [place] [phone] Sep, [facility] [address] [id number] [address] [place] [address], [place] [id number] Sep, [facility] [address] [id number] [address] [place] [address], [place] [address] Aug, [facility] [address] [id number] [address] [place] [phone] Aug, [facility] [address] [id number] [address] [place] [phone] 15 Aug, 2014 [facility] [address] [id number] [address] [place] [address], [place] [id number] 15 Aug, 2014 [facility] [address] [id number] [address] [place] [phone] 15 Aug, 2014 [facility] [address] [id number] [address] [place] [address], [place] [address] 15 Aug, 2014 [facility] [address] [id number] [address] [place] [address], [place] [address] 13 Aug, 2014 [facility] [address] [id number] [address] [place] [address], [place] [id number] 07 Aug, 2014 [facility] [address] [id number] [address] [place] [address], [place] [address] 07 Aug, 2014 [facility] [address] [id number] [address] [place] [address], [place] [address] Aug, [facility] [address] [id number] [address] [place] [address], [place] [id number] 06 Aug, 2014 [facility] [address] [id number] [address] [place] [address], [place] [id number] 19 Jul, 2014 [facility] [address] [id number] [address] [place] [address], [place] [address] 19 Jul, 2014 [facility] [address] [id number] [address] [place] [address], [place] [id number] 18 Jul, 2014 [facility] [address] [id number] [address] [place] [id number] 18 Jul, 2014 [facility] [address] [id number] [address] [place] [address], [place] [address] Jun, [facility] [address] [id number] [address] [place] [address], [place] [address] Jun, [facility] [address] [id number] [address] [place] [address], [place] [address] Jun, [facility] [address] [id number] [address] [place] [address], [place] [address] Jun, [facility] [address] [id number] [address] [place] [address], [place] [id number] Jun, [facility] [address] [id number] [address] [place] [address], [place] [address] Jun, [facility] [address] [id number] [address] [place] [address], [place] [address] May, [facility] [address] [id number] [address] [place] [address], [place] [address] May, [facility] [address] [id number] [address] [place] [address], [place] [address] May, [facility] [address] [id number] [address] [place] [address], [place] [address] May, [facility] [address] [id number] [address] [place] [address], [place] [id number] May, [facility] [address] [id number] [address] [place] [address], [place] [address] May, [facility] [address] [id number] [address] [place] [address], [place] [address] May, [facility] [address] [id number] [address] [place] [address], [place] [address] May, [facility] [address] [id number] [address] [place] [address], [place] [address] May, [facility] [address] [id number] [address] [place] [address], [place] [address] May, [facility] [address] [id number] [address] [place] [address], [place] [address] May, [facility] [address] [id number] [address] [place] [address], [place] [address] May, [facility] [address] [id number] [address] [place] [address], [place] [address] Apr, [facility] [address] [id number] [facility] [place] [address] Apr, [facility] [address] [id number] [address] [place] [address], [place] [address] March, [facility] [address] [id number] [address] [place] [address], [place] [address] March, [facility] [address] [id number] [address] [place] [address], [place] [address] March, [facility] [address] [id number] [address] [place] [address], [place] [address] March, [facility] [address] [id number] [address] [place] [address], [place] [address] Feb, [facility] [address] [id number] [address] [place] [address], [place] [address] Feb, [facility] [address] [id number] [address] [place] [address], [place] [address] Jan, [facility] [address] [id number] [address] [place] [address], [place] [address] Jan, [facility] [address] [id number] [address] [place] [address], [place] [address] Jan, [facility] [address] [id number] [address] [place] [address], [place] [address] Jan, [facility] [address] [id number] [address] [place] [address], [place] [address] Dec, [facility] [address] [id number] [address] [place] [address], [place] [address] Dec, [facility] [address] [id number] [address] [place] [address], [place] [address] Nov, [facility] [address] [id number] [address] [place] [address], [place] [address] Nov, [facility] [address] [id number] [address] [place] [address], [place] [address] Nov, [facility] [address] [id number] [address] [place] [address], [place] [address] Nov, [facility] [address] [id number] [address] [place] [address], [place] [address] Oct, [facility] [address] [id number] [address] [place] [address], [place] [address] Oct, [facility] [address] [id number] [address] [place] [address], [place] [address] Sep, [facility] [address] [id number] [address] [place] [address], [place] [address] Sep, [facility] [address] [id number] [address] [place] [address], [place] [address] Jul, [facility] [address] [id number] [address] [place] [address], [place] [address] Jul, [facility] [address] [id number] [address] [place] [address], [place] [address] Jul, [facility] [address] [id number] [address] [place] [address], [place] [address] Jun, [facility] [address] [id number] [address] [place] [address], [place] [address] Jun, [facility] [address] [id number] [address] [place] [address], [place] [address] May, [facility] [address] [id number] [address] [place] [address], [place] [id number] May, [facility] [address] [id number] [address] [place] [address], [place] [id number] May, [facility] [address] [id number] [address] [place] [address], [place] [id number] March, [facility] [address] [id number] [address] [place] [address], [place] [id number] Jan, [facility] [address] [id number] [address] [place] [phone] Jan, [facility] [address] [id number] [address] [place] [phone] Jan, [facility] [address] [id number] [address] [place] [phone] Dec, [facility] [address] [id number] [address] [place] [phone] May, [facility] [address] [id number] [address] [place] [phone] March, [facility] [address] [id number] [address] [place] [phone] Jan, [facility] [address] [id number] [address] [place] [phone] Aug, [facility] [address] [id number] [address] [place] [phone] Aug, [facility] [address] [id number] [address] [place] [phone] Aug, [facility] [address] [id number] [address] [place] [id number] Jun, [facility] [address] [id number] [address] [place] [phone] May, [facility] [address] [id number] [address] [place] [phone] Oct, IMMUNIZATIONS No Known Immunizations SOCIAL HISTORY Never Assessed REASON FOR VISIT referral PLAN OF CARE VITAL SIGNS MEDICATIONS Unknown [...]
--- OUTSIDE RECORDS SUMMARY | 2020-02-05 11:04 | XMS REPORT ---
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2 Active 60550132 Problem Anxiety F41.9 Active 78109480 Problem Primary osteoarthritis of left hip M16.12 Active 172194322 Problem Idiopathic peripheral neuropathy G60.9 Active 27481559 Problem Low back pain M54.5 Active 230582 005 Problem Pain in right foot M79.671 Active 4 2101483 Problem Pain in right knee M25.561 Active 3 73926182211301 Problem Pure hypercholesterolemia E78.00 Acti ve 310168506 Problem Other chronic pain G89.29 Active 8 7125620 Problem Mood disorder F39 Active 584927 05 Problem Anxiety disorder, unspecified F41.9 Active 677477237 Problem Unspecified mood [affective] disorder F39 Active 027299372 Problem Essential hypertension I10 Active 09067254 Problem Mixed hyperlipidemia E78.2 Active 203388589 Problem Other stimulant dependence, 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 Active 987740364 Problem Cannabis dependence, uncomplicated F12.20 Active 74858292 Problem 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 Active 873912801 Problem Marijuana abuse F12.10 Active 3734 4009 ALLERGIES No Information ENCOUNTERS Encounter Location Date Diagnosis [facility] [address] [facility] [id number] [address] [place] [address] Jun, [facility] [address] [id number] [address] [place] [address] Jun, Other chronic pain G89.29 an d Pain in right knee M25.561 [facility] [address] [id number] [address] [place] [address] May, Primary osteoarthritis of le ft hip M16.12 ; Pain in left hip M25.552 ; Other acute postprocedural pain G89.18 and Anxiety F41.9 [facility] [address] [id number] [address] [place] [address] May, [facility] [address] [id number] [address] [place] [address] Apr, Pain in right knee M25.561 a nd Mood disorder F39 [facility] [address] [id number] [address] [place] [address] Apr, [facility] [address] [id number] [address] [place] [address] [id number] March, [facility] [address] [id number] [address] [place] [address] [id number] March, Encounter for dental exam an d cleaning w/o abnormal findings Z01.20 [facility] [address] [id number] [address] [place] [address] [id number] March, Dental examination Z01.20 [facility] [address] [id number] [address] [place] [address] [id number] March, Dental examination Z01.20 [facility] [address] [id number] [address] [place] [address] March, [facility] [address] [id number] [address] [place] [address] March, [facility] [address] [id number] [address] [place] [address] Feb, [facility] [address] [id number] [address] [place] [address] Feb, Primary osteoarthritis of le ft hip M16.12 [facility] [address] [id number] [address] [place] [address] 16 Feb, 2018 Other chronic pain G89.29 an d Pain in left hip M25.552 [facility] [address] [id number] [address] [place] [address] Feb, Acute pain of left hip M25.5 52 [facility] [address] [id number] [address] [place] [address] Feb, Mood disorder F39 and Pain i n right knee M25.561 [facility] [address] [id number] [address] [place] [address] Jan, Other chronic pain G89.29 [facility] [address] [id number] [address] [place] [address] Jan, Mood disorder F39 [facility] [address] [id number] [address] [place] [address] Jan, Pain in right knee M25.561 [facility] [address] [id number] [address] [place] [address] Jan, Pain in left hip M25.552 and Other chronic pain G89.29 [facility] [address] [id number] [address] [place] [address] Jan, Acute pain of left hip M25.5 52 [facility] [address] [id number] [address] [place] [address] Jan, Acute pain of left hip M25.5 52 [facility] [address] [id number] [address] [place] [address] Jan, Mood disorder F39 and Acute pain of left hip M25.552 [facility] [address] [id number] [address] [place] [address] Nov, Mood disorder F39 [place] [id number] [place] [address] Oct, Essential hypertension I10 ; Mixed hyperlipidemia E78.2 and Low back pain M54.5 [facility] [id number] [place] [address] [id number] May, [place] [address] [address] Apr, Essential hypertension I10 ; Anger R45.4 ; Mixed hyperlipidemia E78.2 ; Drug-induced erectile dysfunction N52.2 ; Gastroesophageal reflux disease with esophagitis K21.0 ; Pure hypercholesterolemia E78.00 ; Pain in right knee M25.561 ; Psychophysiological insomnia F51.04 and Wheezing R06.2 [place] [address] [place] [address] March, Hx of cervical spine surgery Z98.89 [place] [address] [address] March, [place] [address] [address] Feb, Anxiety associated with depr ession F41.8 [place] [address] [place] [id number] [address] [place] [address] Jan, Anxiety associated with depr ession F41.8 [place] [id number] [place] [address] Dec, [place] [address] [place] [id number] [address] [place] [address] Dec, [place] [address] [address] Dec, Essential hypertension I10 ; Erectile dysfunction, unspecified erectile dysfunction type N52.9 and Hyperlipemia E78.5 [place] [address] [place] [id number] [address] [place] [address] Nov, Essential hypertension I10 ; Hx of cervical spine surgery Z98.89 ; Erectile dysfunction, unspecified erectile dysfunction type N52.9 ; Idiopathic peripheral neuropathy G60.9 ; Anger R45.4 ; Anxiety associated with depression F41.8 ; Hyperlipemia E78.5 ; Wheezing R06.2 and Has daytime drowsiness R40.0 [facility] [address] [place] [id number] [address] [place] [address] Nov, [facility] [address] [facility] [id number] [place] [address] Nov, [facility] [address] [place] [id number] [address] [place] [address] Sep, [facility] [address] [place] [id number] [place] [address] Sep, Acute midline low back pain without sciatica M54.5 [facility] [address] [place] [id number] [place] [address] Sep, Acute bilateral low back ekta n without sciatica M54.5 [facility] [address] [facility] [id number] [address] [place] [address] Aug, [facility] [address] [place] [id number] [place] [address] Jun, Wheezing R06.2 ; Candidal de rmatitis B37.2 ; Essential hypertension I10 ; Erectile dysfunction, unspecified erectile dysfunction type N52.9 ; Idiopathic peripheral neuropathy G60.9 ; Mixed hyperlipidemia E78.2 and Other stimulant dependence, 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 [facility] [address] [facility] [id number] [address] [place] [address] March, Essential hypertension I10 ; Hx of cervical spine surgery Z98.89 ; Idiopathic peripheral neuropathy G60.9 ; Mixed hyperlipidemia E78.2 ; Anger R45.4 ; Drug-induced erectile dysfunction N52.2 and Gastroesophageal reflux disease with esophagitis K21.0 [facility] [address] [place] [id number] [address] [place] [address] Feb, [facility] [address] [place] [address] Dec, Low back pain M54.5 [place] [address] [address] Dec, [place] [address] [address] Dec, Unspecified mood [affective] disorder F39 ; Anxiety disorder, unspecified F41.9 ; Other stimulant dependence, 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 and Cannabis dependence, uncomplicated F12.20 [place] [address] [address] Dec, Essential hypertension I10 ; Hyperlipemia E78.5 ; Erectile dysfunction, unspecified erectile dysfunction type N52.9 ; Anger R45.4 ; Mixed hyperlipidemia E78.2 ; Anxiety associated with depression F41.8 ; Elevated serum creatinine R79.89 ; 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 and Marijuana abuse F12.10 [place] [address] [address] Oct, Essential hypertension I10 ; Idiopathic peripheral neuropathy G60.9 ; Low back pain M54.5 ; Hx of cervical spine surgery Z98.89 ; Erectile dysfunction, unspecified erectile dysfunction type N52.9 ; Anger R45.4 ; Mixed hyperlipidemia E78.2 and Anxiety associated with depression F41.8 [place] [address] [address] Oct, Unspecified mood [affective] disorder F39 and Anxiety disorder, unspecified F41.9 [place] [address] [place] [id number] [address] [place] [address] Oct, Hyperlipemia E78.5 [place] [address] [place] [id number] [place] [address] Oct, Essential hypertension I10 [place] [address] [address] Oct, [place] [address] [id number] [address] [place] [address] Oct, Essential hypertension I10 ; Idiopathic peripheral neuropathy G60.9 ; Low back pain M54.5 ; Hx of cervical spine surgery Z98.89 ; Pain in right hand M79.641 ; Pain of left hand M79.642 ; Pain in left foot M79.672 ; Pain in right foot M79.671 ; Erectile dysfunction, unspecified erectile dysfunction type N52.9 and Anger R45.4 [facility] [address] [id number] [address] [place] [address] Sep, [facility] [address] [id number] [address] [place] [address] Jul, [facility] [address] [id number] [address] [place] [address] Jun, [facility] [address] [id number] [address] [place] [address] May, [facility] [address] [id number] [address] [place] [address] Apr, [facility] [address] [id number] [address] [place] [address] March, [facility] [address] [id number] [address] [place] [address] Feb, [facility] [address] [id number] [address] [place] [address] Feb, [facility] [address] [id number] [address] [place] [address] Jan, [facility] [address] [id number] [address] [place] [address] Jan, [facility] [address] [id number] [address] [place] [address] Nov, [facility] [address] [facility] [id number] [address] [place] [address] Nov, [facility] [address] [id number] [address] [place] [address], [place] [address] Nov, [facility] [address] [id number] [address] [place] [address], [place] [address] Nov, [facility] [address] [id number] [address] [place] [address], [place] [address] Nov, [facility] [address] [id number] [address] [place] [address], [place] [address] Nov, [facility] [address] [id number] [address] [place] [address], [place] [address] Oct, [facility] [address] [id number] [address] [place] [address], [place] [address] Oct, [facility] [address] [id number] [address] [place] [address], [place] [address] Oct, [facility] [address] [id number] [address] [place] [address], [place] [address] Oct, [facility] [address] [id number] [address] [place] [address], [place] [address] Sep, [facility] [address] [id number] [address] [place] [address], [place] [address] Sep, [facility] [address] [id number] [address] [place] [address], [place] [address] Sep, [facility] [address] [id number] [address] [place] [address] Sep, [facility] [address] [id number] [address] [place] [address], [place] [address] Sep, [facility] [address] [id number] [address] [place] [address], [place] [address] Aug, [facility] [address] [id number] [address] [place] [address] Aug, [facility] [address] [id number] [address] [place] [address] 15 Aug, 2014 [facility] [address] [id number] [address] [place] [address], [place] [address] 15 Aug, 2014 [facility] [address] [id number] [address] [place] [address] 15 Aug, 2014 [facility] [address] [id number] [address] [place] [address], [place] [address] 15 Aug, 2014 [facility] [address] [id number] [address] [place] [address], [place] [address] 13 Aug, 2014 [facility] [address] [id number] [address] [place] [address], [place] [address] 07 Aug, 2014 [facility] [address] [id number] [address] [place] [address], [place] [address] 07 Aug, 2014 [facility] [address] [id number] [address] [place] [address], [place] [address] Aug, [facility] [address] [id number] [address] [place] [address], [place] [address] 06 Aug, 2014 [facility] [address] [id number] [address] [place] [address], [place] [address] 19 Jul, 2014 [facility] [address] [id number] [address] [place] [address], [place] [address] 19 Jul, 2014 [facility] [address] [id number] [address] [place] [address], [place] [address] 18 Jul, 2014 [facility] [address] [id number] [address] [place] [address] 18 Jul, 2014 [facility] [address] [id number] [address] [place] [address], [place] [address] Jun, [facility] [address] [id number] [address] [place] [address], [place] [address] Jun, [facility] [address] [id number] [address] [place] [address], [place] [address] Jun, [facility] [address] [id number] [address] [place] [address], [place] [address] Jun, [facility] [address] [id number] [address] [place] [address], [place] [address] Jun, [facility] [address] [id number] [address] [place] [address], [place] [address] Jun, [facility] [address] [id number] [address] [place] [address], [place] [address] May, [facility] [address] [id number] [address] [place] [address], [place] [address] May, [facility] [address] [id number] [address] [place] [address], [place] [address] May, [facility] [address] [id number] [address] [place] [address], [place] [address] May, [facility] [address] [id number] [address] [place] [address], [place] [id number] May, [facility] [address] [id number] [address] [place] [address], [place] [address] May, [facility] [address] [id number] [address] [place] [address], [place] [address] May, [facility] [address] [id number] [address] [place] [address], [place] [address] May, [facility] [address] [id number] [address] [place] [address], [place] [address] May, [facility] [address] [id number] [address] [place] [address], [place] [address] May, [facility] [address] [id number] [address] [place] [address], [place] [address] May, [facility] [address] [id number] [address] [place] [address], [place] [address] May, [facility] [address] [id number] [address] [place] [address], [place] [address] Apr, [facility] [address] [id number] [facility] [address] Apr, [facility] [address] [id number] [address] [place] [address], [place] [address] March, [facility] [address] [id number] [address] [place] [address], [place] [address] March, [facility] [address] [id number] [address] [place] [address], [place] [address] March, [facility] [address] [id number] [address] [place] [address], [place] [address] March, [facility] [address] [id number] [address] [place] [address], [place] [address] Feb, [facility] [address] [id number] [address] [place] [address], [place] [address] Feb, [facility] [address] [id number] [address] [place] [address], [place] [address] Jan, [facility] [address] [id number] [address] [place] [address], [place] [address] Jan, [facility] [address] [id number] [address] [place] [address], [place] [address] Jan, [facility] [address] [id number] [address] [place] [address], [place] [address] Jan, [facility] [address] [id number] [address] [place] [address], [place] [address] Dec, [facility] [address] [id number] [address] [place] [address], [place] [address] Dec, [facility] [address] [id number] [address] [place] [address], [place] [address] Nov, [facility] [address] [id number] [address] [place] [address], [place] [address] Nov, [facility] [address] [id number] [address] [place] [address], [place] [address] Nov, [facility] [address] [id number] [address] [place] [address], [place] [address] Nov, [facility] [address] [id number] [address] [place] [address], [place] [address] Oct, [facility] [address] [id number] [address] [place] [address], [place] [address] Oct, [facility] [address] [id number] [address] [place] [address], [place] [address] Sep, [facility] [address] [id number] [address] [place] [address], [place] [address] Sep, [facility] [address] [id number] [address] [place] [address], [place] [address] Jul, [facility] [address] [id number] [address] [place] [address], [place] [address] Jul, [facility] [address] [id number] [address] [place] [address], [place] [address] Jul, [facility] [address] [id number] [address] [place] [address], [place] [address] Jun, [facility] [address] [id number] [address] [place] [address], [place] [address] Jun, [facility] [address] [id number] [address] [place] [address], [place] [address] May, [facility] [address] [id number] [address] [place] [address], [place] [address] May, [facility] [address] [id number] [address] [place] [address], [place] [address] May, [facility] [address] [id number] [address] [place] [address], [place] [address] March, [facility] [address] [id number] [address] [place] [address], [place] [id number] Jan, [facility] [address] [id number] [address] [place] [phone] Jan, [facility] [address] [id number] [address] [place] [phone] Jan, [facility] [address] [id number] [address] [place] [phone] Dec, [facility] [address] [id number] [address] [place] [phone] May, [facility] [address] [id number] [address] [place] [phone] March, [facility] [address] [id number] [address] [place] [phone] Jan, [facility] [address] [id number] [address] [place] [phone] Aug, [facility] [address] [id number] [address] [place] [phone] Aug, [facility] [address] [id number] [address] [place] [phone] Aug, [facility] [address] [id number] [address] [place] [phone] Jun, [facility] [address] [id number] [address] [place] [id number] May, [facility] [address] [id number] [address] [place] [phone] Oct, IMMUNIZATIONS No Known Immunizations SOCIAL HISTORY Never Assessed REASON FOR VISIT Refill request PLAN OF CARE VITAL SIGNS MEDICATIONS Medication Instructions Dosage Frequency Start Date End Date Duration S tatus Norvasc 5 mg Orally Once a day 1 tablet 24h Dec, 30 days Active Neurontin 800 MG Orally 3 times a day 1 tablet 8h 3 0 days Active RESULTS No Results PROCEDURES No Known [...]
--- OUTSIDE RECORDS SUMMARY | 2020-02-05 11:04 | XMS REPORT ---
Author Author Jelani ESPARZA Organization [facility] Address [address] [place] [address] Care Team Providers Care Sales/Marketing Name Role Phone JAYME ESPARZA Unavailable PROBLEMS Type Condition ICD9-CM Code PFQ17-GY Code Onset Dates Condition S tatus SNOMED Code Problem Hx of cervical spine surgery Z98.89 A ctive 683902827 Problem Drug-induced erectile dysfunction N52.2 Active 627643968 Problem Anger R45.4 Active 53290528 Problem Gastroesophageal reflux disease with esophagitis K 21.0 Active 807447576 Problem Erectile dysfunction, unspecified erectile dysfunction typ e N52.9 Active 831620244 Problem Candidal dermatitis B37.2 Active 46756678 Problem Psychophysiological insomnia F51.04 A ctive 176905691 Problem Wheezing R06.2 Active 06880532 Problem Anxiety F41.9 Active 66197169 Problem Primary osteoarthritis of left hip M16.12 Active 381498371 Problem Idiopathic peripheral neuropathy G60.9 Active 39035990 Problem Low back pain M54.5 Active 757234 005 Problem Pain in right foot M79.671 Active 4 3887103 Problem Pain in right knee M25.561 Active 3 [id number] Problem Pure hypercholesterolemia E78.00 Acti ve 662660373 Problem Other chronic pain G89.29 Active 8 6453920 Problem Mood disorder F39 Active 726600 05 Problem Anxiety disorder, unspecified F41.9 Active 224089848 Problem Unspecified mood [affective] disorder F39 Active 061101770 Problem Essential hypertension I10 Active 19210525 Problem Mixed hyperlipidemia E78.2 Active 726662145 Problem Other stimulant dependence, 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 Active 122647810 Problem Cannabis dependence, uncomplicated F12.20 Active 25496401 Problem 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 Active 464228981 Problem Marijuana abuse F12.10 Active 3734 4009 ALLERGIES No Information ENCOUNTERS Encounter Location Date Diagnosis [facility] [address] [facility] [id number] [address] [place] [phone] Jun, [facility] [address] [id number] [address] [place] [phone] Jun, Other chronic pain G89.29 an d Pain in right knee M25.561 [facility] [address] [id number] [address] [place] [phone] May, Primary osteoarthritis of le ft hip M16.12 ; Pain in left hip M25.552 ; Other acute postprocedural pain G89.18 and Anxiety F41.9 [facility] [address] [id number] [address] [place] [phone] May, [facility] [address] [id number] [address] [place] [phone] Apr, Pain in right knee M25.561 a nd Mood disorder F39 [facility] [address] [id number] [address] [place] [phone] Apr, [facility] [address] [id number] [address] [place] [id number] March, [facility] [address] [id number] [address] [place] [phone] March, Encounter for dental exam an d cleaning w/o abnormal findings Z01.20 [facility] [address] [id number] [address] [place] [address] [phone] March, Dental examination Z01.20 [facility] [address] [id number] [address] [place] [address] [id number] March, Dental examination Z01.20 [facility] [address] [id number] [address] [place] [phone] March, [facility] [address] [id number] [address] [place] [phone] March, [facility] [address] [id number] [address] [place] [phone] Feb, [facility] [address] [id number] [address] [place] [phone] Feb, Primary osteoarthritis of le ft hip M16.12 [facility] [address] [id number] [address] [place] [phone] 16 Feb, 2018 Other chronic pain G89.29 an d Pain in left hip M25.552 [facility] [address] [id number] [address] [place] [phone] Feb, Acute pain of left hip M25.5 52 [facility] [address] [id number] [address] [place] [phone] Feb, Mood disorder F39 and Pain i n right knee M25.561 [facility] [address] [id number] [address] [place] [phone] Jan, Other chronic pain G89.29 [facility] [address] [id number] [address] [place] [phone] Jan, Mood disorder F39 [facility] [address] [id number] [address] [place] [phone] Jan, Pain in right knee M25.561 [facility] [address] [id number] [address] [place] [phone] Jan, Pain in left hip M25.552 and Other chronic pain G89.29 [facility] [address] [id number] [address] [place] [phone] Jan, Acute pain of left hip M25.5 52 [facility] [address] [id number] [address] [place] [phone] Jan, Acute pain of left hip M25.5 52 [facility] [address] [id number] [address] [place] [phone] Jan, Mood disorder F39 and Acute pain of left hip M25.552 [facility] [address] [id number] [address] [place] [phone] Nov, Mood disorder F39 [place] [id number] [place] [phone] Oct, Essential hypertension I10 ; Mixed hyperlipidemia E78.2 and Low back pain M54.5 [facility] [id number] [place] [address] [id number] May, [place] [address] [address] Apr, Essential hypertension I10 ; Anger R45.4 ; Mixed hyperlipidemia E78.2 ; Drug-induced erectile dysfunction N52.2 ; Gastroesophageal reflux disease with esophagitis K21.0 ; Pure hypercholesterolemia E78.00 ; Pain in right knee M25.561 ; Psychophysiological insomnia F51.04 and Wheezing R06.2 [place] [address] [place] [address] March, Hx of cervical spine surgery Z98.89 [place] [address] [address] March, [place] [address] [address] Feb, Anxiety associated with depr ession F41.8 [place] [address] [place] [id number] [address] [place] [phone] Jan, Anxiety associated with depr ession F41.8 [place] [address] [place] [phone] Dec, [place] [address] [place] [id number] [address] [place] [phone] Dec, [place] [address] [address] Dec, Essential hypertension I10 ; Erectile dysfunction, unspecified erectile dysfunction type N52.9 and Hyperlipemia E78.5 [place] [address] [place] [id number] [address] [place] [address] Nov, Essential hypertension I10 ; Hx of cervical spine surgery Z98.89 ; Erectile dysfunction, unspecified erectile dysfunction type N52.9 ; Idiopathic peripheral neuropathy G60.9 ; Anger R45.4 ; Anxiety associated with depression F41.8 ; Hyperlipemia E78.5 ; Wheezing R06.2 and Has daytime drowsiness R40.0 [facility] [address] [place] [id number] [address] [place] [phone] Nov, [facility] [address] [facility] [id number] [place] [phone] Nov, [facility] [address] [place] [id number] [address] [place] [phone] Sep, [facility] [address] [place] [id number] [place] [phone] Sep, Acute midline low back pain without sciatica M54.5 [facility] [address] [place] [id number] [place] [address] Sep, Acute bilateral low back ekta n without sciatica M54.5 [facility] [address] 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 [id number] [address] [place] [phone] March, Essential hypertension I10 ; Hx of cervical spine surgery Z98.89 ; Idiopathic peripheral neuropathy G60.9 ; Mixed hyperlipidemia E78.2 ; Anger R45.4 ; Drug-induced erectile dysfunction N52.2 and Gastroesophageal reflux disease with esophagitis K21.0 [facility] [address] [place] [id number] [address] [place] [phone] Feb, [facility] [address] [place] [phone] Dec, Low back pain M54.5 [place] [address] [address] Dec, [place] [address] [address] Dec, Unspecified mood [affective] disorder F39 ; Anxiety disorder, unspecified F41.9 ; Other stimulant dependence, 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 and Cannabis dependence, uncomplicated F12.20 [place] [address] [address] Dec, Essential hypertension I10 ; Hyperlipemia E78.5 ; Erectile dysfunction, unspecified erectile dysfunction type N52.9 ; Anger R45.4 ; Mixed hyperlipidemia E78.2 ; Anxiety associated with depression F41.8 ; Elevated serum creatinine R79.89 ; 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 and Marijuana abuse F12.10 [place] [address] [address] Oct, Essential hypertension I10 ; Idiopathic peripheral neuropathy G60.9 ; Low back pain M54.5 ; Hx of cervical spine surgery Z98.89 ; Erectile dysfunction, unspecified erectile dysfunction type N52.9 ; Anger R45.4 ; Mixed hyperlipidemia E78.2 and Anxiety associated with depression F41.8 [place] [address] [address] Oct, Unspecified mood [affective] disorder F39 and Anxiety disorder, unspecified F41.9 [place] [address] [place] [id number] [address] [place] [phone] Oct, Hyperlipemia E78.5 [place] [address] [place] [id number] [place] [phone] Oct, Essential hypertension I10 [place] [address] [address] Oct, [place] [address] [id number] [address] [place] [phone] Oct, Essential hypertension I10 ; Idiopathic peripheral neuropathy G60.9 ; Low back pain M54.5 ; Hx of cervical spine surgery Z98.89 ; Pain in right hand M79.641 ; Pain of left hand M79.642 ; Pain in left foot M79.672 ; Pain in right foot M79.671 ; Erectile dysfunction, unspecified erectile dysfunction type N52.9 and Anger R45.4 [facility] [address] [id number] [address] [place] [phone] Sep, [facility] [address] [id number] [address] [place] [phone] Jul, [facility] [address] [id number] [address] [place] [phone] Jun, [facility] [address] [id number] [address] [place] [phone] May, [facility] [address] [id number] [address] [place] [phone] Apr, [facility] [address] [id number] [address] [place] [phone] March, [facility] [address] [id number] [address] [place] [phone] Feb, [facility] [address] [id number] [address] [place] [phone] Feb, [facility] [address] [id number] [address] [place] [phone] Jan, [facility] [address] [id number] [address] [place] [phone] Jan, [facility] [address] [id number] [address] [place] [phone] Nov, [facility] [address] [facility] [id number] [address] [place] [phone] Nov, [facility] [address] [id number] [address] [place] [address], [place] [address] Nov, [facility] [address] [id number] [address] [place] [address], [place] [address] Nov, [facility] [address] [id number] [address] [place] [address], [place] [address] Nov, [facility] [address] [id number] [address] [place] [address], [place] [address] Nov, [facility] [address] [id number] [address] [place] [address], [place] [address] Oct, [facility] [address] [id number] [address] [place] [address], [place] [address] Oct, [facility] [address] [id number] [address] [place] [address], [place] [address] Oct, [facility] [address] [id number] [address] [place] [address], [place] [address] Oct, [facility] [address] [id number] [address] [place] [address], [place] [address] Sep, [facility] [address] [id number] [address] [place] [address], [place] [address] Sep, [facility] [address] [id number] [address] [place] [address], [place] [address] Sep, [facility] [address] [id number] [address] [place] [phone] Sep, [facility] [address] [id number] [address] [place] [address], [place] [address] Sep, [facility] [address] [id number] [address] [place] [address], [place] [address] Aug, [facility] [address] [id number] [address] [place] [phone] Aug, [facility] [address] [id number] [address] [place] [phone] 15 Aug, 2014 [facility] [address] [id number] [address] [place] [address], [place] [address] 15 Aug, 2014 [facility] [address] [id number] [address] [place] [phone] 15 Aug, 2014 [facility] [address] [id number] [address] [place] [address], [place] [address] 15 Aug, 2014 [facility] [address] [id number] [address] [place] [address], [place] [address] 13 Aug, 2014 [facility] [address] [id number] [address] [place] [address], [place] [address] 07 Aug, 2014 [facility] [address] [id number] [address] [place] [address], [place] [address] 07 Aug, 2014 [facility] [address] [id number] [address] [place] [address], [place] [address] Aug, [facility] [address] [id number] [address] [place] [address], [place] [address] 06 Aug, 2014 [facility] [address] [id number] [address] [place] [address], [place] [address] 19 Jul, 2014 [facility] [address] [id number] [address] [place] [address], [place] [address] 19 Jul, 2014 [facility] [address] [id number] [address] [place] [address], [place] [address] 18 Jul, 2014 [facility] [address] [id number] [address] [place] [id number] 18 Jul, 2014 [facility] [address] [id number] [address] [place] [address], [place] [address] Jun, [facility] [address] [id number] [address] [place] [address], [place] [address] Jun, [facility] [address] [id number] [address] [place] [address], [place] [address] Jun, [facility] [address] [id number] [address] [place] [address], [place] [address] Jun, [facility] [address] [id number] [address] [place] [address], [place] [address] Jun, [facility] [address] [id number] [address] [place] [address], [place] [address] Jun, [facility] [address] [id number] [address] [place] [address], [place] [address] May, [facility] [address] [id number] [address] [place] [address], [place] [address] May, [facility] [address] [id number] [address] [place] [address], [place] [address] May, [facility] [address] [id number] [address] [place] [address], [place] [address] May, [facility] [address] [id number] [address] [place] [address], [place] [id number] May, [facility] [address] [id number] [address] [place] [address], [place] [address] May, [facility] [address] [id number] [address] [place] [address], [place] [address] May, [facility] [address] [id number] [address] [place] [address], [place] [address] May, [facility] [address] [id number] [address] [place] [address], [place] [address] May, [facility] [address] [id number] [address] [place] [address], [place] [address] May, [facility] [address] [id number] [address] [place] [address], [place] [address] May, [facility] [address] [id number] [address] [place] [address], [place] [address] May, [facility] [address] [id number] [address] [place] [address], [place] [address] Apr, [facility] [address] [id number] [facility] [place] [address] Apr, [facility] [address] [id number] [address] [place] [address], [place] [address] March, [facility] [address] [id number] [address] [place] [address], [place] [address] March, [facility] [address] [id number] [address] [place] [address], [place] [address] March, [facility] [address] [id number] [address] [place] [address], [place] [address] March, [facility] [address] [id number] [address] [place] [address], [place] [address] Feb, [facility] [address] [id number] [address] [place] [address], [place] [address] Feb, [facility] [address] [id number] [address] [place] [address], [place] [address] Jan, [facility] [address] [id number] [address] [place] [address], [place] [address] Jan, [facility] [address] [id number] [address] [place] [address], [place] [address] Jan, [facility] [address] [id number] [address] [place] [address], [place] [address] Jan, [facility] [address] [id number] [address] [place] [address], [place] [address] Dec, [facility] [address] [id number] [address] [place] [address], [place] [address] Dec, [facility] [address] [id number] [address] [place] [address], [place] [address] Nov, [facility] [address] [id number] [address] [place] [address], [place] [address] Nov, [facility] [address] [id number] [address] [place] [address], [place] [address] Nov, [facility] [address] [id number] [address] [place] [address], [place] [address] Nov, [facility] [address] [id number] [address] [place] [address], [place] [address] Oct, [facility] [address] [id number] [address] [place] [address], [place] [address] Oct, [facility] [address] [id number] [address] [place] [address], [place] [address] Sep, [facility] [address] [id number] [address] [place] [address], [place] [address] Sep, [facility] [address] [id number] [address] [place] [address], [place] [address] Jul, [facility] [address] [id number] [address] [place] [address], [place] [address] Jul, [facility] [address] [id number] [address] [place] [address], [place] [id number] Jul, [facility] [address] [id number] [address] [place] [address], [place] [address] Jun, [facility] [address] [id number] [address] [place] [address], [place] [address] Jun, [facility] [address] [id number] [address] [place] [address], [place] [address] May, [facility] [address] [id number] [address] [place] [address], [place] [address] May, [facility] [address] [id number] [address] [place] [address], [place] [address] May, [facility] [address] [id number] [address] [place] [address], [place] [address] March, [facility] [address] [id number] [address] [place] [address], [place] [address] Jan, [facility] [address] [id number] [address] [place] [phone] Jan, [facility] [address] [id number] [address] [place] [id number] Jan, [facility] [address] [id number] [address] [place] [id number] Dec, [facility] [address] [id number] [address] [place] [id number] May, [facility] [address] [id number] [address] [place] [phone] March, [facility] [address] [id number] [address] [place] [phone] Jan, [facility] [address] [id number] [address] [place] [id number] Aug, [facility] [address] [id number] [address] [place] [phone] Aug, [facility] [address] [id number] [address] [place] [phone] Aug, [facility] [address] [id number] [address] [place] [phone] Jun, [facility] [address] [id number] [address] [place] [phone] May, [facility] [address] [id number] [address] [place] [phone] Oct, IMMUNIZATIONS No Known Immunizations SOCIAL HISTORY Never Assessed REASON FOR VISIT hospital f/u PLAN OF CARE VITAL SIGNS MEDICATIONS Unknown [...] surgery Hospitalization History left axilla abcess, hypokalemia-[facility] 7/19/17
--- OUTSIDE RECORDS SUMMARY | 2020-02-05 11:05 | XMS REPORT ---
Author Author Jelani MIRANDA Organization [facility] Address [address] [place] [address] Phone Unavailable Care Team Providers Care Public Works Technician Name Role Phone VINEET MIRANDA Unavailable Unavailable PROBLEMS Type Condition ICD9-CM Code UDD32-IC Code Onset Dates Condition S tatus SNOMED Code Problem Hx of cervical spine surgery Z98.89 A ctive 912082270 Problem Drug-induced erectile dysfunction N52.2 Active 460247347 Problem Anger R45.4 Active 42197776 Problem Gastroesophageal reflux disease with esophagitis K 21.0 Active 721784606 Problem Erectile dysfunction, unspecified erectile dysfunction typ e N52.9 Active 913274510 Problem Candidal dermatitis B37.2 Active 69336013 Problem Psychophysiological insomnia F51.04 A ctive 202117189 Problem Wheezing R06.2 Active 19252375 Problem Anxiety F41.9 Active 99743658 Problem Primary osteoarthritis of left hip M16.12 Active 716717378 Problem Idiopathic peripheral neuropathy G60.9 Active 26464865 Problem Low back pain M54.5 Active 428847 005 Problem Pain in right foot M79.671 Active 4 0997383 Problem Pain in right knee M25.561 Active 3 [id number] Problem Pure hypercholesterolemia E78.00 Acti ve 998134304 Problem Other chronic pain G89.29 Active 8 6186225 Problem Mood disorder F39 Active 332805 05 Problem Anxiety disorder, unspecified F41.9 Active 663474867 Problem Unspecified mood [affective] disorder F39 Active 767917213 Problem Essential hypertension I10 Active 52666406 Problem Mixed hyperlipidemia E78.2 Active 577085253 Problem Other stimulant dependence, 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 Active 301659744 Problem Cannabis dependence, uncomplicated F12.20 Active 43872556 Problem 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 Active 494681953 Problem Marijuana abuse F12.10 Active 3734 4009 ALLERGIES No Information ENCOUNTERS Encounter Location Date Diagnosis [facility] [address] [facility] [id number] [address] [place] [address] Jun, [facility] [address] [id number] [address] [place] [address] Jun, Other chronic pain G89.29 an d Pain in right knee M25.561 [facility] [address] [id number] [address] [place] [address] May, Primary osteoarthritis of le ft hip M16.12 ; Pain in left hip M25.552 ; Other acute postprocedural pain G89.18 and Anxiety F41.9 [facility] [address] [id number] [address] [place] [address] May, [facility] [address] [id number] [address] [place] [address] Apr, Pain in right knee M25.561 a nd Mood disorder F39 [facility] [address] [id number] [address] [place] [address] Apr, [facility] [address] [id number] [address] [place] [phone] March, [facility] [id number] [place] [id number] March, Encounter for dental exam an d cleaning w/o abnormal findings Z01.20 [facility] [address] [id number] [address] [place] [address] [id number] March, Dental examination Z01.20 [facility] [address] [id number] [address] [place] [address] [id number] March, Dental examination Z01.20 [facility] [address] [id number] [address] [place] [address] March, [facility] [address] [id number] [address] [place] [address] March, [facility] [address] [id number] [address] [place] [address] Feb, [facility] [address] [id number] [address] [place] [address] Feb, Primary osteoarthritis of le ft hip M16.12 [facility] [address] [id number] [address] [place] [address] Feb, Other chronic pain G89.29 an d Pain in left hip M25.552 [facility] [address] [id number] [address] [place] [address] Feb, Acute pain of left hip M25.5 52 [facility] [address] [id number] [address] [place] [address] Feb, Mood disorder F39 and Pain i n right knee M25.561 [facility] [address] [id number] [address] [place] [address] Jan, Other chronic pain G89.29 [facility] [address] [id number] [address] [place] [address] Jan, Mood disorder F39 [facility] [address] [id number] [address] [place] [address] Jan, Pain in right knee M25.561 [facility] [address] [id number] [address] [place] [address] Jan, Pain in left hip M25.552 and Other chronic pain G89.29 [facility] [address] [id number] [address] [place] [address] Jan, Acute pain of left hip M25.5 52 [facility] [address] [id number] [address] [place] [address] Jan, Acute pain of left hip M25.5 52 [facility] [address] [id number] [address] [place] [address] Jan, Mood disorder F39 and Acute pain of left hip M25.552 [facility] [address] [id number] [address] [place] [address] Nov, Mood disorder F39 [facility] [address] [place] [id number] [address] [place] [address] Oct, Essential hypertension I10 ; Mixed hyperlipidemia E78.2 and Low back pain M54.5 [facility] [address] [place] [id number] [place] [id number] May, [place] [address] [address] Apr, Essential hypertension I10 ; Anger R45.4 ; Mixed hyperlipidemia E78.2 ; Drug-induced erectile dysfunction N52.2 ; Gastroesophageal reflux disease with esophagitis K21.0 ; Pure hypercholesterolemia E78.00 ; Pain in right knee M25.561 ; Psychophysiological insomnia F51.04 and Wheezing R06.2 [place] [address] [address] March, Hx of cervical spine surgery Z98.89 [place] [address] [address] March, [place] [address] [address] Feb, Anxiety associated with depr ession F41.8 [place] [address] [address] Jan, Anxiety associated with depr ession F41.8 [place] [address] [place] [id number] [address] [place] [address] Dec, [place] [address] [address] Dec, [place] [address] [address] Dec, Essential hypertension I10 ; Erectile dysfunction, unspecified erectile dysfunction type N52.9 and Hyperlipemia E78.5 [place] [address] [place] [id number] [address] [place] [address] Nov, Essential hypertension I10 ; Hx of cervical spine surgery Z98.89 ; Erectile dysfunction, unspecified erectile dysfunction type N52.9 ; Idiopathic peripheral neuropathy G60.9 ; Anger R45.4 ; Anxiety associated with depression F41.8 ; Hyperlipemia E78.5 ; Wheezing R06.2 and Has daytime drowsiness R40.0 [facility] [address] [facility] [id number] [address] [place] [address] Nov, [facility] [address] [facility] [id number] [address] [place] [address] Nov, [facility] [address] [id number] [address] [place] [address] Sep, [facility] [address] [place] [id number] [place] [address] Sep, Acute midline low back pain without sciatica M54.5 [facility] [address] [place] [id number] [address] [place] [address] Sep, Acute bilateral low back ekta n without sciatica M54.5 [facility] [address] [facility] [id number] [address] [place] [address] Aug, [facility] [address] [place] [place] [id number] [place] [address] Jun, Wheezing R06.2 ; Candidal de rmatitis B37.2 ; Essential hypertension I10 ; Erectile dysfunction, unspecified erectile dysfunction type N52.9 ; Idiopathic peripheral neuropathy G60.9 ; Mixed hyperlipidemia E78.2 and Other stimulant dependence, 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 [facility] [address] [facility] [id number] [address] [place] [address] March, Essential hypertension I10 ; Hx of cervical spine surgery Z98.89 ; Idiopathic peripheral neuropathy G60.9 ; Mixed hyperlipidemia E78.2 ; Anger R45.4 ; Drug-induced erectile dysfunction N52.2 and Gastroesophageal reflux disease with esophagitis K21.0 [facility] [address] [place] [place] [id number] [address] [place] [address] Feb, [facility] [address] [place] [id number] [address] [place] [address] Dec, Low back pain M54.5 [facility] [address] [address] Dec, [facility] [address] [address] Dec, Unspecified mood [affective] disorder F39 ; Anxiety disorder, unspecified F41.9 ; Other stimulant dependence, 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 and Cannabis dependence, uncomplicated F12.20 [facility] [address] [address] Dec, Essential hypertension I10 ; Hyperlipemia E78.5 ; Erectile dysfunction, unspecified erectile dysfunction type N52.9 ; Anger R45.4 ; Mixed hyperlipidemia E78.2 ; Anxiety associated with depression F41.8 ; Elevated serum creatinine R79.89 ; 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 and Marijuana abuse F12.10 [place] [address] [address] Oct, Essential hypertension I10 ; Idiopathic peripheral neuropathy G60.9 ; Low back pain M54.5 ; Hx of cervical spine surgery Z98.89 ; Erectile dysfunction, unspecified erectile dysfunction type N52.9 ; Anger R45.4 ; Mixed hyperlipidemia E78.2 and Anxiety associated with depression F41.8 [place] [address] [address] Oct, Unspecified mood [affective] disorder F39 and Anxiety disorder, unspecified F41.9 [facility] [address] [place] [id number] [address] [place] [address] Oct, Hyperlipemia E78.5 [place] [address] [address] Oct, Essential hypertension I10 [facility] [address] [address] Oct, [facility] [address] [place] [address] Oct, Essential hypertension I10 ; Idiopathic peripheral neuropathy G60.9 ; Low back pain M54.5 ; Hx of cervical spine surgery Z98.89 ; Pain in right hand M79.641 ; Pain of left hand M79.642 ; Pain in left foot M79.672 ; Pain in right foot M79.671 ; Erectile dysfunction, unspecified erectile dysfunction type N52.9 and Anger R45.4 [facility] [address] [id number] [address] [place] [address] Sep, [facility] [address] [id number] [address] [place] [address] Jul, [facility] [address] [id number] [address] [place] [address] Jun, [facility] [address] [id number] [address] [place] [address] May, [facility] [address] [id number] [address] [place] [address] Apr, [facility] [address] [id number] [address] [place] [address] March, [facility] [address] [facility] [id number] [address] [place] [address] Feb, [facility] [address] [facility] [id number] [address] [place] [address] Feb, [facility] [address] [facility] [id number] [address] [place] [address] Jan, [facility] [address] [id number] [address] [place] [address] Jan, [facility] [address] [facility] [id number] [address] [place] [address] Nov, [facility] [address] [facility] [id number] [address] [place] [address] Nov, [facility] [place] [facility] [address] [id number] [address] [place] [address], [place] [address] 16 Nov, 2014 [facility] [address] [id number] [address] [place] [address], [place] [address] Nov, [facility] [address] [id number] [address] [place] [address], [place] [address] Nov, [facility] [address] [id number] [address] [place] [address], [place] [address] Nov, [facility] [address] [id number] [address] [place] [address], [place] [address] Oct, [facility] [address] [id number] [address] [place] [address], [place] [address] Oct, [facility] [address] [id number] [address] [place] [address], [place] [address] Oct, [facility] [address] [id number] [address] [place] [address], [place] [address] Oct, [facility] [address] [id number] [address] [place] [address], [place] [address] Sep, [facility] [address] [id number] [address] [place] [address], [place] [address] Sep, [facility] [address] [id number] [address] [place] [address], [place] [address] Sep, [facility] [address] [id number] [address] [place] [address], [place] [address] Sep, [facility] [address] [id number] [address] [place] [address], [place] [address] Sep, [facility] [address] [id number] [address] [place] [address], [place] [address] Aug, [facility] [address] [id number] [address] [place] [address], [place] [address] Aug, [facility] [address] [id number] [address] [place] [address], [place] [address] 15 Aug, 2014 [facility] [place] [facility] [address] [id number] [address] [place] [address], [place] [address] 15 Aug, 2014 [facility] [place] [facility] [address] [id number] [address] [place] [address], [place] [address] 15 Aug, 2014 [facility] [place] [facility] [address] [id number] [address] [place] [address], [place] [address] 15 Aug, 2014 [facility] [place] [facility] [address] [id number] [address] [place] [address], [place] [address] 13 Aug, 2014 [facility] [place] [facility] [address] [id number] [address] [place] [address], [place] [address] Aug, [facility] [place] [facility] [address] [id number] [address] [place] [address], [place] [address] Aug, [facility] [place] [facility] [address] [id number] [address] [place] [address], [place] [address] Aug, [facility] [place] [facility] [address] [id number] [address] [place] [address], [place] [address] Aug, [facility] [place] [facility] [address] [id number] [address] [place] [address], [place] [address] 19 Jul, 2014 [facility] [place] [facility] [address] [id number] [address] [place] [address], [place] [address] 19 Jul, 2014 [facility] [place] [facility] [address] [id number] [address] [place] [address], [place] [address] 18 Jul, 2014 [facility] [place] [facility] [address] [id number] [address] [place] [address], [place] [address] 18 Jul, 2014 [facility] [place] [facility] [address] [id number] [address] [place] [address], [place] [address] Jun, [facility] [place] [facility] [address] [id number] [address] [place] [address], [place] [address] Jun, [facility] [place] [facility] [address] [id number] [address] [place] [address], [place] [address] Jun, [facility] [place] [facility] [address] [id number] [address] [place] [address] [place] [address] Jun, [facility] [address] [id number] [address] [place] [address], [place] [address] Jun, [facility] [address] [id number] [address] [place] [address], [place] [address] Jun, [facility] [address] [id number] [address] [place] [address], [place] [address] May, [facility] [address] [id number] [address] [place] [address], [place] [address] May, [facility] [address] [id number] [address] [place] [address], [place] [address] May, [facility] [address] [id number] [address] [place] [address], [place] [address] May, [facility] [address] [id number] [address] [place] [address], [place] [id number] May, [facility] [address] [id number] [address] [place] [address], [place] [address] May, [facility] [address] [id number] [address] [place] [address], [place] [address] May, [facility] [address] [id number] [address] [place] [address], [place] [address] May, [facility] [address] [id number] [address] [place] [address], [place] [address] May, [facility] [address] [id number] [address] [place] [address], [place] [address] May, [facility] [address] [id number] [address] [place] [address], [place] [address] May, [facility] [address] [id number] [address] [place] [address], [place] [address] May, [facility] [address] [id number] [address] [place] [address], [place] [address] Apr, [facility] [address] [id number] [facility] [place] [address] Apr, [facility] [address] [id number] [address] [place] [address], [place] [address] March, [facility] [address] [id number] [address] [place] [address], [place] [address] March, [facility] [address] [id number] [address] [place] [address], [place] [address] March, [facility] [address] [id number] [address] [place] [address], [place] [address] March, [facility] [address] [id number] [address] [place] [address], [place] [address] Feb, [facility] [address] [id number] [address] [place] [address], [place] [address] Feb, [facility] [address] [id number] [address] [place] [address], [place] [address] Jan, [facility] [address] [id number] [address] [place] [address], [place] [address] Jan, [facility] [address] [id number] [address] [place] [address], [place] [address] Jan, [facility] [address] [id number] [address] [place] [address], [place] [address] Jan, [facility] [address] [id number] [address] [place] [address], [place] [address] Dec, [facility] [address] [id number] [address] [place] [address], [place] [address] Dec, [facility] [place] [facility] [address] [id number] [address] [place] [address], [place] [address] Nov, [facility] [place] [facility] [address] [id number] [address] [place] [address], [place] [address] Nov, [facility] [place] [facility] [address] [id number] [address] [place] [address], [place] [address] Nov, [facility] [address] [id number] [address] [place] [address], [place] [address] Nov, [facility] [address] [id number] [address] [place] [address], [place] [address] Oct, [facility] [address] [id number] [address] [place] [address], [place] [address] Oct, [facility] [address] [id number] [address] [place] [address], [place] [address] Sep, [facility] [address] [id number] [address] [place] [address], [place] [address] Sep, [facility] [address] [id number] [address] [place] [address], [place] [address] Jul, [facility] [address] [id number] [address] [place] [address], [place] [address] Jul, [facility] [address] [id number] [address] [place] [address], [place] [address] Jul, [facility] [address] [id number] [address] [place] [address], [place] [address] Jun, [facility] [address] [id number] [address] [place] [address], [place] [address] Jun, [facility] [address] [id number] [address] [place] [address], [place] [address] May, [facility] [address] [id number] [address] [place] [address], [place] [address] May, [facility] [address] [id number] [address] [place] [address], [place] [address] May, [facility] [address] [id number] [address] [place] [address], [place] [address] March, [facility] [address] [id number] [address] [place] [address], [place] [address] Jan, [facility] [address] [id number] [address] [place] [phone] 05 Jan, 2013 [facility] [address] [id number] [address] [place] [phone] Jan, [facility] [address] [id number] [address] [place] [phone] Dec, [facility] [address] [id number] [address] [place] [phone] May, [facility] [address] [id number] [address] [place] [phone] March, [facility] [address] [id number] [address] [place] [phone] Jan, [facility] [address] [id number] [address] [place] [phone] Aug, [facility] [address] [id number] [address] [place] [id number] Aug, [facility] [address] [id number] [address] [place] [phone] Aug, [facility] [address] [id number] [address] [place] [phone] Jun, [facility] [address] [id number] [address] [place] [phone] May, [facility] [address] [id number] [address] [place] [phone] Oct, IMMUNIZATIONS No Known Immunizations SOCIAL HISTORY Never Assessed REASON FOR VISIT srp PLAN OF CARE VITAL SIGNS MEDICATIONS Medication Instructions Dosage Frequency Start Date End Date Duration S tatus Lisinopril 10 mg Orally Once a day 1 tablet 24h Oct, Unknown Norvasc 5 mg Orally Once a day 1 tablet 24h 09 Dec, 2015 Unknown Neurontin 800 MG Orally 3 times a day 1 tablet 8h 3 0 days Unknown Flexeril 10 mg Orally Three times a day 1 tablet as needed 8h 30 days Unknown Trazodone HCl 150 MG Orally Once a day 1 tablet at bedtime 24h 2017 Unknown Citalopram Hydrobromide 20 MG Orally Once a day 1 tablet 24h Feb, 30 day(s) Unknown Indomethacin 25 MG Orally Twice a day 1 capsule with food or milk 12h Unknown Viagra 100 MG Orally Once a day as needed 1 tablet as needed Unknown RESULTS No Results PROCEDURES Procedure Date Ordered Result Body Site Billing Notes on claim March 26, 2018 INSTRUCTIONS MEDICATIONS ADMINISTERED No Known Medications [...]
--- OUTSIDE RECORDS SUMMARY | 2020-02-05 11:05 | XMS REPORT ---
Author Author Jelani MONTIEL Organization [facility] Address Unknown Care Team Providers Care Head Setter Name Role Phone ROSI MONTIEL Unavailable PROBLEMS Type Condition ICD9-CM Code CEG16-UI Code Onset Dates Condition S tatus SNOMED Code Problem Hx of cervical spine surgery Z98.89 A ctive 498201022 Problem Drug-induced erectile dysfunction N52.2 Active 064057987 Problem Anger R45.4 Active 21309296 Problem Gastroesophageal reflux disease with esophagitis K 21.0 Active 553858165 Problem Erectile dysfunction, unspecified erectile dysfunction typ e N52.9 Active 793938078 Problem Candidal dermatitis B37.2 Active 42343518 Problem Psychophysiological insomnia F51.04 A ctive 910993819 Problem Wheezing R06.2 Active 77061247 Problem Anxiety F41.9 Active 19823474 Problem Primary osteoarthritis of left hip M16.12 Active 855269559 Problem Idiopathic peripheral neuropathy G60.9 Active 61654974 Problem Low back pain M54.5 Active 645105 005 Problem Pain in right foot M79.671 Active 4 4495002 Problem Pain in right knee M25.561 Active 3 [id number] Problem Pure hypercholesterolemia E78.00 Acti ve 365042835 Problem Other chronic pain G89.29 Active 8 9601103 Problem Mood disorder F39 Active 322290 05 Problem Anxiety disorder, unspecified F41.9 Active 981223523 Problem Unspecified mood [affective] disorder F39 Active 864540720 Problem Essential hypertension I10 Active 74151042 Problem Mixed hyperlipidemia E78.2 Active 804476338 Problem Other stimulant dependence, 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 Active 935172820 Problem Cannabis dependence, uncomplicated F12.20 Active 71908308 Problem 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 Active 054333376 Problem Marijuana abuse F12.10 Active 3734 4009 ALLERGIES Substance Reaction Event Type Date Status Codeine Sulfate stomach problems Drug Allergy March, Active bee stings Unknown Non Drug Allergy March, Active ENCOUNTERS Encounter Location Date Diagnosis [facility] [address] [id number] [address] [place] [phone] Jun, [facility] [address] [id number] [address] [place] [phone] Jun, Other chronic pain G89.29 an d Pain in right knee M25.561 [facility] [address] [id number] [address] [place] [phone] May, Primary osteoarthritis of le ft hip M16.12 ; Pain in left hip M25.552 ; Other acute postprocedural pain G89.18 and Anxiety F41.9 [facility] [address] [id number] [address] [place] [phone] May, [facility] [address] [id number] [address] [place] [phone] Apr, Pain in right knee M25.561 a nd Mood disorder F39 [facility] [address] [id number] [address] [place] [phone] Apr, [facility] [address] [id number] [address] [place] [phone] March, [facility] [address] [id number] [address] [place] [address] [phone] March, Encounter for dental exam an d cleaning w/o abnormal findings Z01.20 [facility] [address] [id number] [address] [place] [address] [phone] March, Dental examination Z01.20 [facility] [address] [id number] [address] [place] [id number] March, Dental examination Z01.20 [facility] [address] [id number] [address] [place] [phone] March, [facility] [address] [id number] [address] [place] [phone] March, [facility] [address] [id number] [address] [place] [phone] Feb, [facility] [address] [id number] [address] [place] [phone] Feb, Primary osteoarthritis of le ft hip M16.12 [facility] [address] [id number] [address] [place] [phone] Feb, Other chronic pain G89.29 an d Pain in left hip M25.552 [facility] [address] [id number] [address] [place] [phone] Feb, Acute pain of left hip M25.5 52 [facility] [address] [id number] [address] [place] [phone] Feb, Mood disorder F39 and Pain i n right knee M25.561 [facility] [address] [id number] [address] [place] [phone] Jan, Other chronic pain G89.29 [facility] [address] [id number] [address] [place] [phone] Jan, Mood disorder F39 [facility] [address] [id number] [address] [place] [phone] Jan, Pain in right knee M25.561 [facility] [address] [id number] [address] [place] [phone] Jan, Pain in left hip M25.552 and Other chronic pain G89.29 [facility] [address] [id number] [address] [place] [phone] Jan, Acute pain of left hip M25.5 52 [facility] [address] [id number] [address] [place] [phone] Jan, Acute pain of left hip M25.5 52 [facility] [address] [id number] [address] [place] [address] Jan, Mood disorder F39 and Acute pain of left hip M25.552 [facility] [address] [id number] [address] [place] [phone] Nov, Mood disorder F39 [place] [id number] [address] Oct, Essential hypertension I10 ; Mixed hyperlipidemia E78.2 and Low back pain M54.5 [facility] [address] [id number] May, [place] [address] [address] Apr, Essential hypertension I10 ; Anger R45.4 ; Mixed hyperlipidemia E78.2 ; Drug-induced erectile dysfunction N52.2 ; Gastroesophageal reflux disease with esophagitis K21.0 ; Pure hypercholesterolemia E78.00 ; Pain in right knee M25.561 ; Psychophysiological insomnia F51.04 and Wheezing R06.2 [place] [address] [address] March, Hx of cervical spine surgery Z98.89 [place] [address] [address] March, [place] [address] [address] Feb, Anxiety associated with depr ession F41.8 [place] [address] [address] Jan, Anxiety associated with depr ession F41.8 [place] [address] [place] [id number] [place] [phone] Dec, [place] [address] [address] Dec, [place] [address] [address] Dec, Essential hypertension I10 ; Erectile dysfunction, unspecified erectile dysfunction type N52.9 and Hyperlipemia E78.5 [place] [address] [place] [address] Nov, Essential hypertension I10 ; Hx of cervical spine surgery Z98.89 ; Erectile dysfunction, unspecified erectile dysfunction type N52.9 ; Idiopathic peripheral neuropathy G60.9 ; Anger R45.4 ; Anxiety associated with depression F41.8 ; Hyperlipemia E78.5 ; Wheezing R06.2 and Has daytime drowsiness R40.0 [facility] [address] [address] Nov, [facility] [address] [address] Nov, [facility] [address] [address] Sep, [place] [address] [address] Sep, Acute midline low back pain without sciatica M54.5 [place] [address] [address] Sep, Acute bilateral low back ekta n without sciatica M54.5 [place] [address] [address] Aug, [facility] [address] [address] Jun, Wheezing R06.2 ; Candidal de rmatitis B37.2 ; Essential hypertension I10 ; Erectile dysfunction, unspecified erectile dysfunction type N52.9 ; Idiopathic peripheral neuropathy G60.9 ; Mixed hyperlipidemia E78.2 and Other stimulant dependence, 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 [facility] [address] [address] March, Essential hypertension I10 ; Hx of cervical spine surgery Z98.89 ; Idiopathic peripheral neuropathy G60.9 ; Mixed hyperlipidemia E78.2 ; Anger R45.4 ; Drug-induced erectile dysfunction N52.2 and Gastroesophageal reflux disease with esophagitis K21.0 [place] [address] [id number] 14 Feb, 2016 [facility] [address] [address] Dec, Low back pain M54.5 [place] [address] [address] Dec, [place] [address] [address] Dec, Unspecified mood [affective] disorder F39 ; Anxiety disorder, unspecified F41.9 ; Other stimulant dependence, 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 and Cannabis dependence, uncomplicated F12.20 [place] [address] [address] Dec, Essential hypertension I10 ; Hyperlipemia E78.5 ; Erectile dysfunction, unspecified erectile dysfunction type N52.9 ; Anger R45.4 ; Mixed hyperlipidemia E78.2 ; Anxiety associated with depression F41.8 ; Elevated serum creatinine R79.89 ; 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 and Marijuana abuse F12.10 [place] [address] [address] Oct, Essential hypertension I10 ; Idiopathic peripheral neuropathy G60.9 ; Low back pain M54.5 ; Hx of cervical spine surgery Z98.89 ; Erectile dysfunction, unspecified erectile dysfunction type N52.9 ; Anger R45.4 ; Mixed hyperlipidemia E78.2 and Anxiety associated with depression F41.8 [place] [address] [address] Oct, Unspecified mood [affective] disorder F39 and Anxiety disorder, unspecified F41.9 [place] [address] [address] Oct, Hyperlipemia E78.5 [place] [address] [address] Oct, Essential hypertension I10 [place] [address] [place] [address] Oct, [facility] [address] [id number] [address] [place] [phone] Oct, Essential hypertension I10 ; Idiopathic peripheral neuropathy G60.9 ; Low back pain M54.5 ; Hx of cervical spine surgery Z98.89 ; Pain in right hand M79.641 ; Pain of left hand M79.642 ; Pain in left foot M79.672 ; Pain in right foot M79.671 ; Erectile dysfunction, unspecified erectile dysfunction type N52.9 and Anger R45.4 [facility] [address] [id number] [address] [place] [phone] Sep, [facility] [address] [id number] [address] [place] [phone] Jul, [facility] [address] [id number] [address] [place] [phone] Jun, [facility] [address] [id number] [address] [place] [phone] May, [facility] [address] [id number] [address] [place] [phone] Apr, [facility] [address] [id number] [address] [place] [phone] March, [facility] [address] [id number] [address] [place] [phone] Feb, [facility] [address] [id number] [address] [place] [id number] Feb, [facility] [address] [id number] [address] [place] [phone] Jan, [facility] [address] [id number] [address] [place] [phone] Jan, [facility] [address] [id number] [address] [place] [phone] Nov, [facility] [address] [id number] [address] [place] [address], [place] [address] Nov, [facility] [address] [id number] [address] [place] [address], [place] [address] Nov, [facility] [address] [id number] [address] [place] [address], [place] [address] Nov, [facility] [address] [id number] [address] [place] [address], [place] [address] Nov, [facility] [address] [id number] [address] [place] [address], [place] [address] Nov, [facility] [address] [id number] [address] [place] [address], [place] [address] Oct, [facility] [address] [id number] [address] [place] [address], [place] [address] Oct, [facility] [address] [id number] [address] [place] [address], [place] [address] Oct, [facility] [address] [id number] [address] [place] [address], [place] [address] Oct, [facility] [address] [id number] [address] [place] [address], [place] [address] Sep, [facility] [address] [id number] [address] [place] [address], [place] [address] Sep, [facility] [address] [id number] [address] [place] [address], [place] [address] Sep, [facility] [address] [id number] [address] [place] [address], [place] [address] Sep, [facility] [address] [id number] [address] [place] [address], [place] [address] Sep, [facility] [address] [id number] [address] [place] [address], [place] [address] Aug, [facility] [address] [id number] [address] [place] [address], [place] [address] Aug, [facility] [address] [id number] [address] [place] [address], [place] [id number] 15 Aug, 2014 [facility] [address] [id number] [address] [place] [address], [place] [id number] 15 Aug, 2014 [facility] [address] [id number] [address] [place] [address], [place] [address] 15 Aug, 2014 [facility] [address] [id number] [address] [place] [address], [place] [id number] 15 Aug, 2014 [facility] [address] [id number] [address] [place] [address], [place] [id number] 13 Aug, 2014 [facility] [address] [id number] [address] [place] [address], [place] [id number] 07 Aug, 2014 [facility] [address] [id number] [address] [place] [address], [place] [address] 07 Aug, 2014 [facility] [address] [id number] [address] [place] [address], [place] [id number] 06 Aug, 2014 [facility] [address] [id number] [address] [place] [address], [place] [id number] 06 Aug, 2014 [facility] [address] [id number] [address] [place] [address], [place] [id number] 19 Jul, 2014 [facility] [address] [id number] [address] [place] [id number] 19 Jul, 2014 [facility] [address] [id number] [address] [place] [id number] 18 Jul, 2014 [facility] [address] [id number] [address] [place] [address], [place] [id number] 18 Jul, 2014 [facility] [address] [id number] [address] [place] [address], [place] [address] Jun, [facility] [address] [id number] [address] [place] [phone] Jun, [facility] [address] [id number] [address] [place] [phone] Jun, [facility] [address] [id number] [address] [place] [address], [place] [address] Jun, [facility] [address] [id number] [address] [place] [address], [place] [address] Jun, [facility] [address] [id number] [address] [place] [address], [place] [address] Jun, [facility] [address] [id number] [address] [place] [address], [place] [address] May, [facility] [address] [id number] [address] [place] [address], [place] [address] May, [facility] [address] [id number] [address] [place] [address], [place] [address] May, [facility] [address] [id number] [address] [place] [address], [place] [address] May, [facility] [address] [id number] [address] [place] [address], [place] [id number] May, [facility] [address] [id number] [address] [place] [address], [place] [address] May, [facility] [address] [id number] [address] [place] [address], [place] [address] May, [facility] [address] [id number] [address] [place] [address], [place] [address] May, [facility] [address] [id number] [address] [place] [address], [place] [address] May, [facility] [address] [id number] [address] [place] [address], [place] [address] May, [facility] [address] [id number] [address] [place] [address], [place] [address] May, [facility] [address] [id number] [address] [place] [address], [place] [address] May, [facility] [address] [id number] [address] [place] [address], [place] [address] Apr, [facility] [address] [id number] [address] [place] [address], [place] [address] Apr, [facility] [address] [id number] [address] [place] [address], [place] [address] March, [facility] [address] [id number] [address] [place] [address], [place] [address] March, [facility] [address] [id number] [address] [place] [address], [place] [address] March, [facility] [address] [id number] [address] [place] [address], [place] [address] March, [facility] [address] [id number] [address] [place] [address], [place] [address] Feb, [facility] [address] [id number] [address] [place] [address], [place] [address] Feb, [facility] [address] [id number] [address] [place] [address], [place] [address] Jan, [facility] [address] [id number] [address] [place] [address], [place] [address] Jan, [facility] [address] [id number] [address] [place] [address], [place] [address] Jan, [facility] [address] [id number] [address] [place] [address], [place] [address] Jan, [facility] [address] [id number] [address] [place] [address], [place] [address] Dec, [facility] [address] [id number] [address] [place] [address], [place] [address] Dec, [facility] [address] [id number] [address] [place] [address], [place] [address] Nov, [facility] [address] [id number] [address] [place] [address], [place] [address] Nov, [facility] [address] [id number] [address] [place] [address], [place] [address] Nov, [facility] [address] [id number] [address] [place] [address], [place] [address] Nov, [facility] [address] [id number] [address] [place] [address], [place] [address] Oct, [facility] [address] [id number] [address] [place] [address], [place] [address] Oct, [facility] [address] [id number] [address] [place] [address], [place] [address] Sep, [facility] [address] [id number] [address] [place] [address], [place] [address] Sep, [facility] [address] [id number] [address] [place] [address], [place] [address] Jul, [facility] [address] [id number] [address] [place] [address], [place] [address] Jul, [facility] [address] [id number] [address] [place] [address], [place] [address] Jul, [facility] [address] [id number] [address] [place] [address], [place] [address] Jun, [facility] [address] [id number] [address] [place] [address], [place] [address] Jun, [facility] [address] [id number] [address] [place] [address], [place] [address] May, [facility] [address] [id number] [address] [place] [address], [place] [id number] May, [facility] [address] [id number] [address] [place] [address], [place] [id number] May, [facility] [address] [id number] [address] [place] [address], [place] [id number] March, [facility] [address] [id number] [address] [place] [phone] 05 Jan, 2013 [facility] [address] [id number] [address] [place] [phone] Jan, [facility] [address] [id number] [address] [place] [phone] Jan, [facility] [address] [id number] [address] [place] [phone] Dec, [facility] [address] [id number] [address] [place] [phone] May, [facility] [address] [id number] [address] [place] [phone] March, [facility] [address] [id number] [address] [place] [phone] Jan, [facility] [address] [id number] [address] [place] [phone] Aug, [facility] [address] [id number] [address] [place] [id number] Aug, [facility] [address] [id number] [address] [place] [phone] Aug, [facility] [address] [id number] [address] [place] [phone] Jun, [facility] [address] [id number] [address] [place] [phone] May, [facility] [address] [id number] [address] [place] [phone] Oct, IMMUNIZATIONS No Known Immunizations SOCIAL HISTORY Never Assessed REASON FOR VISIT ferny PLAN OF CARE Activity Details Follow Up prn Reason:SRP left side sta rt EXT # 24 VITAL SIGNS Height 66 in 2018-03-21 Blood pressure systolic 150 mmHg 2018-03-21 Blood pressure diastolic 80 mmHg 2018-03-21 MEDICATIONS Medication Instructions Dosage Frequency Start Date End Date Duration S tatus Neurontin 800 MG Orally 3 times a day 1 tablet 8h 3 0 days Active Indomethacin 25 MG Orally Twice a day 1 capsule with food or milk 12h Active Norvasc 5 mg Orally Once a day 1 tablet 24h Dec, Active Citalopram Hydrobromide 20 MG Orally Once a day 1 tablet 24h Feb, 30 day(s) Active Viagra 100 MG Orally Once a day as needed 1 tablet as needed Not-Taking Flexeril 10 mg Orally Three times a day 1 tablet as needed 8h 30 days Active Trazodone HCl 150 MG Orally Once a day 1 tablet at bedtime 24h 2017 Not-Taking Lisinopril 10 mg Orally Once a day 1 tablet 24h Oct, Active RESULTS No Results PROCEDURES Procedure Date Ordered Result Body Site COMP ORAL EVALUATION - NEW/EST PT March 21, 2018 INTRAORL-PERIAPICAL 1 FILM [id number] March 21, 2018 PANORAMIC FILM SEE ALSO CODE [id number] March 21, 2018 INTRAORL-PERIAPICAL EA ADD FILM March 21, 2018 INTRAORL-PERIAPICAL EA ADD FILM March 21, 2018 BITEWINGS - FOUR FILMS March 21, 2018 INTRAORL-PERIAPICAL EA ADD FILM March 21, 2018 INSTRUCTIONS MEDICATIONS ADMINISTERED No Known Medications MEDICAL (GENERAL) HISTORY Type Description Date Medical History Hypertension Medical History Arthritis Medical History Dermatophytosis of nail Medical History Unspecified hemorrhoids without mention of complication Medical History Hallux rigidus Medical History Hallux valgus (acquired) Medical History neuropathy Surgical History spinal stenosis 2013 Surgical History left hip replacement 04/2018 Hospitalization History surgery Hospitalization History left axilla abcess, hypokalemia-[facility] 05/29/17
--- OUTSIDE RECORDS SUMMARY | 2020-02-05 11:05 | XMS REPORT ---
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 Name Role Phone JAYME ESPARZA Unavailable PROBLEMS Type Condition ICD9-CM Code [id number] Code Onset Dates Condition S tatus SNOMED Code Problem Hx of cervical spine surgery Z98.89 A ctive 110483362 Problem Drug-induced erectile dysfunction N52.2 Active 951310101 Problem Anger R45.4 Active 49056401 Problem Gastroesophageal reflux disease with esophagitis K 21.0 Active 243264889 Problem Erectile dysfunction, unspecified erectile dysfunction typ e N52.9 Active 683066210 Problem Candidal dermatitis B37.2 Active 53349122 Problem Psychophysiological insomnia F51.04 A ctive 361876337 Problem Wheezing R06.2 Active 46484028 Problem Anxiety F41.9 Active 91918087 Problem Primary osteoarthritis of left hip M16.12 Active 194760292 Problem Idiopathic peripheral neuropathy G60.9 Active 97946760 Problem Low back pain M54.5 Active 751767 005 Problem Pain in right foot M79.671 Active 4 1174472 Problem Pain in right knee M25.561 Active 3 [id number] Problem Pure hypercholesterolemia E78.00 Acti ve 186363656 Problem Other chronic pain G89.29 Active 8 0015440 Problem Mood disorder F39 Active 007539 05 Problem Anxiety disorder, unspecified F41.9 Active 694124292 Problem Unspecified mood [affective] disorder F39 Active 882273502 Problem Essential hypertension I10 Active 58937880 Problem Mixed hyperlipidemia E78.2 Active 406678011 Problem Other stimulant dependence, 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 Active 358621620 Problem Cannabis dependence, uncomplicated F12.20 Active 91128108 Problem 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 Active 607126860 Problem Marijuana abuse F12.10 Active 3734 4009 ALLERGIES No Information ENCOUNTERS Encounter Location Date Diagnosis [facility] [place] [address] [facility] [id number] [address] [place] [phone] May, Primary osteoarthritis of le ft hip M16.12 ; Pain in left hip M25.552 ; Other acute postprocedural pain G89.18 and Anxiety F41.9 [facility] [place] [address] [id number] [address] [place] [id number] May, [facility] [place] [address] [id number] [address] [place] [address] Apr, Pain in right knee M25.561 a nd Mood disorder F39 [facility] [place] [address] [id number] [address] [place] [address] Apr, [facility] [address] [id number] [address] [place] [id number] March, [facility] [address] [id number] [address] [place] [id number] March, Encounter for dental exam an d cleaning w/o abnormal findings Z01.20 [facility] [address] [id number] [address] [place] [address] [id number] March, Dental examination Z01.20 [facility] [address] [id number] [address] [place] [id number] March, Dental examination Z01.20 [facility] [place] [address] [id number] [address] [place] [phone] March, [facility] [place] [address] [id number] [address] [place] [id number] March, [facility] [place] [address] [id number] [address] [place] [id number] Feb, [facility] [place] [address] [id number] [address] [place] [id number] Feb, Primary osteoarthritis of le ft hip M16.12 [facility] [place] [address] [id number] [address] [place] [id number] Feb, Other chronic pain G89.29 an d Pain in left hip M25.552 [facility] [place] [address] [id number] [address] [place] [phone] Feb, Acute pain of left hip M25.5 52 [facility] [place] [address] [id number] [address] [place] [id number] Feb, Mood disorder F39 and Pain i n right knee M25.561 [facility] [place] [address] [id number] [address] [place] [phone] Jan, Other chronic pain G89.29 [facility] [place] [address] [id number] [address] [place] [phone] Jan, Mood disorder F39 [facility] [place] [address] [id number] [address] [place] [id number] Jan, Pain in right knee M25.561 [facility] [place] [address] [id number] [address] [place] [id number] Jan, Pain in left hip M25.552 and Other chronic pain G89.29 [facility] [place] [address] [id number] [address] [place] [id number] Jan, Acute pain of left hip M25.5 52 [facility] [place] [address] [facility] [id number] [address] [place] [id number] Jan, Acute pain of left hip M25.5 52 [facility] [place] [address] [id number] [address] [place] [phone] Jan, Mood disorder F39 and Acute pain of left hip M25.552 [facility] [place] [address] [id number] [address] [place] [phone] Nov, Mood disorder F39 [facility] [place] [address] [facility] [id number] [address] [place] [phone] Oct, Essential hypertension I10 ; Mixed hyperlipidemia E78.2 and Low back pain M54.5 [facility] [place] [address] [id number] [place] [id number] May, [place] [address] [id number] Apr, Essential hypertension I10 ; Anger R45.4 ; Mixed hyperlipidemia E78.2 ; Drug-induced erectile dysfunction N52.2 ; Gastroesophageal reflux disease with esophagitis K21.0 ; Pure hypercholesterolemia E78.00 ; Pain in right knee M25.561 ; Psychophysiological insomnia F51.04 and Wheezing R06.2 [place] [address] [address] March, Hx of cervical spine surgery Z98.89 [place] [address] [id number] March, [place] [address] [address] Feb, Anxiety associated with depr ession F41.8 [place] [address] [address] Jan, Anxiety associated with depr ession F41.8 [place] [address] [id number] Dec, [place] [address] [address] Dec, [place] [address] [address] Dec, Essential hypertension I10 ; Erectile dysfunction, unspecified erectile dysfunction type N52.9 and Hyperlipemia E78.5 [place] [address] [id number] Nov, Essential hypertension I10 ; Hx of cervical spine surgery Z98.89 ; Erectile dysfunction, unspecified erectile dysfunction type N52.9 ; Idiopathic peripheral neuropathy G60.9 ; Anger R45.4 ; Anxiety associated with depression F41.8 ; Hyperlipemia E78.5 ; Wheezing R06.2 and Has daytime drowsiness R40.0 [place] [address] [place] [id number] [address] [place] [phone] Nov, [facility] [place] [address] [facility] [id number] [address] [place] [id number] Nov, [facility] [place] [address] [facility] [id number] [address] [place] [phone] Sep, [facility] [place] [address] [place] [id number] [place] [phone] Sep, Acute midline low back pain without sciatica M54.5 [facility] [place] [address] [place] [id number] [address] [place] [phone] Sep, Acute bilateral low back ekta n without sciatica M54.5 [facility] [place] [address] [place] [id number] [place] [phone] Aug, [facility] [place] [address] [address] Jun, Wheezing R06.2 ; Candidal de rmatitis B37.2 ; Essential hypertension I10 ; Erectile dysfunction, unspecified erectile dysfunction type N52.9 ; Idiopathic peripheral neuropathy G60.9 ; Mixed hyperlipidemia E78.2 and Other stimulant dependence, 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 [facility] [place] [address] [place] [id number] [address] [place] [address] March, Essential hypertension I10 ; Hx of cervical spine surgery Z98.89 ; Idiopathic peripheral neuropathy G60.9 ; Mixed hyperlipidemia E78.2 ; Anger R45.4 ; Drug-induced erectile dysfunction N52.2 and Gastroesophageal reflux disease with esophagitis K21.0 [facility] [place] [address] [place] [id number] [address] [place] [phone] Feb, [facility] [place] [address] [address] Dec, Low back pain M54.5 [facility] [place] [address] [place] [id number] [address] [place] [phone] Dec, [facility] [place] [address] [place] [id number] [address] [place] [phone] Dec, Unspecified mood [affective] disorder F39 ; Anxiety disorder, unspecified F41.9 ; Other stimulant dependence, 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 and Cannabis dependence, uncomplicated F12.20 [place] [address] [place] [id number] [address] [place] [address] Dec, Essential hypertension I10 ; Hyperlipemia E78.5 ; Erectile dysfunction, unspecified erectile dysfunction type N52.9 ; Anger R45.4 ; Mixed hyperlipidemia E78.2 ; Anxiety associated with depression F41.8 ; Elevated serum creatinine R79.89 ; 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 and Marijuana abuse F12.10 [place] [address] [address] Oct, Essential hypertension I10 ; Idiopathic peripheral neuropathy G60.9 ; Low back pain M54.5 ; Hx of cervical spine surgery Z98.89 ; Erectile dysfunction, unspecified erectile dysfunction type N52.9 ; Anger R45.4 ; Mixed hyperlipidemia E78.2 and Anxiety associated with depression F41.8 [place] [address] [address] Oct, Unspecified mood [affective] disorder F39 and Anxiety disorder, unspecified F41.9 [place] [address] [place] [id number] [address] [place] [address] Oct, Hyperlipemia E78.5 [place] [address] [place] [id number] [address] [place] [id number] Oct, Essential hypertension I10 [place] [address] [place] [id number] [address] [place] [address] Oct, [place] [address] [place] [id number] [address] [place] [id number] Oct, Essential hypertension I10 ; Idiopathic peripheral neuropathy G60.9 ; Low back pain M54.5 ; Hx of cervical spine surgery Z98.89 ; Pain in right hand M79.641 ; Pain of left hand M79.642 ; Pain in left foot M79.672 ; Pain in right foot M79.671 ; Erectile dysfunction, unspecified erectile dysfunction type N52.9 and Anger R45.4 [facility] [address] [id number] [address] [place] [id number] Sep, [facility] [address] [id number] [address] [place] [id number] Jul, [facility] [address] [id number] [address] [place] [id number] Jun, [facility] [address] [id number] [address] [place] [phone] May, [facility] [address] [id number] [address] [place] [phone] Apr, [facility] [address] [id number] [address] [place] [id number] March, [facility] [address] [id number] [address] [place] [phone] Feb, [facility] [address] [id number] [address] [place] [address] Feb, [facility] [address] [id number] [address] [place] [id number] Jan, [facility] [address] [id number] [address] [place] [phone] Jan, [facility] [address] [id number] [address] [place] [phone] Nov, [facility] [address] [id number] [address] [place] [phone] Nov, [facility] [address] [id number] [address] [place] [phone] Nov, [facility] [address] [id number] [address] [place] [phone] Nov, [facility] [address] [id number] [address] [place] [address], [place] [address] Nov, [facility] [address] [id number] [address] [place] [address], [place] [address] Nov, [facility] [address] [id number] [address] [place] [address], [place] [address] Oct, [facility] [address] [id number] [address] [place] [address], [place] [address] Oct, [facility] [address] [id number] [address] [place] [address], [place] [address] Oct, [facility] [address] [id number] [address] [place] [address], [place] [address] Oct, [facility] [address] [id number] [address] [place] [address], [place] [address] Sep, [facility] [address] [id number] [address] [place] [address], [place] [address] Sep, [facility] [address] [id number] [address] [place] [address], [place] [address] Sep, [facility] [address] [id number] [address] [place] [address], [place] [address] Sep, [facility] [address] [id number] [address] [place] [address], [place] [address] Sep, [facility] [address] [id number] [address] [place] [address], [place] [address] 16 Aug, 2014 [facility] [address] [id number] [address] [place] [address], [place] [address] 16 Aug, 2014 [facility] [address] [id number] [address] [place] [address], [place] [address] 15 Aug, 2014 [facility] [address] [id number] [address] [place] [address], [place] [address] 15 Aug, 2014 [facility] [address] [id number] [address] [place] [address], [place] [address] 15 Aug, 2014 [facility] [address] [id number] [address] [place] [address], [place] [address] 15 Aug, 2014 [facility] [address] [id number] [address] [place] [address], [place] [address] 13 Aug, 2014 [facility] [address] [id number] [address] [place] [address], [place] [address] 07 Aug, 2014 [facility] [address] [id number] [address] [place] [address], [place] [address] Aug, [facility] [address] [id number] [address] [place] [address], [place] [address] Aug, [facility] [address] [id number] [address] [place] [address], [place] [address] Aug, [facility] [address] [id number] [address] [place] [address], [place] [address] Jul, [facility] [address] [id number] [address] [place] [address], [place] [address] Jul, [facility] [address] [id number] [address] [place] [address], [place] [address] Jul, [facility] [address] [id number] [address] [place] [address], [place] [address] Jul, [facility] [address] [id number] [address] [place] [address], [place] [address] Jun, [facility] [address] [id number] [address] [place] [address], [place] [address] Jun, [facility] [address] [id number] [address] [place] [address], [place] [address] Jun, [facility] [address] [id number] [address] [place] [address], [place] [address] Jun, [facility] [address] [id number] [address] [place] [address], [place] [address] Jun, [facility] [address] [id number] [address] [place] [address], [place] [address] Jun, [facility] [address] [id number] [facility] [place] [address] May, [facility] [address] [id number] [address] [place] [address], [place] [address] May, [facility] [address] [id number] [address] [place] [address], [place] [address] May, [facility] [address] [id number] [address] [place] [address], [place] [address] May, [facility] [address] [id number] [address] [place] [address], [place] [id number] May, [facility] [address] [id number] [address] [place] [address], [place] [address] May, [facility] [address] [id number] [address] [place] [address], [place] [address] May, [facility] [address] [id number] [address] [place] [address], [place] [address] May, [facility] [address] [id number] [address] [place] [address], [place] [address] May, [facility] [address] [id number] [address] [place] [address], [place] [address] May, [facility] [address] [id number] [address] [place] [address], [place] [address] May, [facility] [address] [id number] [address] [place] [address], [place] [address] May, [facility] [address] [id number] [address] [place] [address], [place] [address] Apr, [facility] [address] [id number] [address] [place] [address], [place] [address] Apr, [facility] [address] [id number] [address] [place] [address], [place] [address] March, [facility] [address] [id number] [address] [place] [address], [place] [address] March, [facility] [address] [id number] [address] [place] [address], [place] [address] March, [facility] [address] [id number] [address] [place] [address], [place] [address] March, [facility] [address] [id number] [address] [place] [address], [place] [address] Feb, [facility] [address] [id number] [address] [place] [address], [place] [address] Feb, [facility] [address] [id number] [address] [place] [address], [place] [address] Jan, [facility] [address] [id number] [address] [place] [address], [place] [address] Jan, [facility] [address] [id number] [address] [place] [address], [place] [address] Jan, [facility] [address] [id number] [address] [place] [address], [place] [address] Jan, [facility] [address] [id number] [address] [place] [address], [place] [address] Dec, [facility] [address] [id number] [address] [place] [address], [place] [address] Dec, [facility] [address] [id number] [address] [place] [address], [place] [address] Nov, [facility] [address] [id number] [address] [place] [address], [place] [address] Nov, [facility] [address] [id number] [address] [place] [address], [place] [address] Nov, [facility] [address] [id number] [address] [place] [address], [place] [address] Nov, [facility] [address] [id number] [address] [place] [address], [place] [address] Oct, [facility] [address] [id number] [address] [place] [address], [place] [address] Oct, [facility] [address] [id number] [address] [place] [address], [place] [address] Sep, [facility] [address] [id number] [address] [place] [address], [place] [address] Sep, [facility] [address] [id number] [address] [place] [address], [place] [address] Jul, [facility] [address] [id number] [address] [place] [address], [place] [address] Jul, [facility] [address] [id number] [address] [place] [address], [place] [address] Jul, [facility] [address] [id number] [address] [place] [address], [place] [address] Jun, [facility] [address] [id number] [address] [place] [address], [place] [address] Jun, [facility] [address] [id number] [address] [place] [address], [place] [address] May, [facility] [address] [id number] [address] [place] [address], [place] [address] May, [facility] [address] [id number] [address] [place] [address], [place] [address] May, [facility] [address] [id number] [address] [place] [address], [place] [address] March, [facility] [address] [id number] [address] [place] [address], [place] [address] Jan, [facility] [address] [id number] [address] [place] [address], [place] [address] Jan, [facility] [address] [id number] [address] [place] [address], [place] [address] Jan, [facility] [address] [id number] [address] [place] [id number] Dec, [facility] [place] [address] [id number] [address] [place] [phone] May, [facility] [place] [address] [id number] [address] [place] [phone] March, [facility] [place] [address] [id number] [address] [place] [phone] Jan, [facility] [place] [address] [id number] [address] [place] [phone] Aug, [facility] [place] [address] [id number] [address] [place] [id number] Aug, [facility] [place] [address] [id number] [address] [place] [phone] Aug, [facility] [place] [address] [id number] [address] [place] [id number] Jun, [facility] [place] [address] [id number] [address] [place] [id number] May, [facility] [place] [address] [id number] [address] [place] [id number] Oct, IMMUNIZATIONS No Known Immunizations SOCIAL HISTORY Never Assessed REASON FOR VISIT Consult CBrumbackRn PLAN OF CARE VITAL SIGNS MEDICATIONS No [...]
--- OUTSIDE RECORDS SUMMARY | 2020-02-05 11:05 | XMS REPORT ---
Author Author Jelani MIRANDA Organization [facility] Address [address] [place] [address] Phone Unavailable Care Team Providers Care Physician Office Specialist Name Role Phone VINEET MIRANDA Unavailable Unavailable PROBLEMS Type Condition ICD9-CM Code CML04-HC Code Onset Dates Condition S tatus SNOMED Code Problem Hx of cervical spine surgery Z98.89 A ctive 900701434 Problem Drug-induced erectile dysfunction N52.2 Active 103346460 Problem Anger R45.4 Active 25815256 Problem Gastroesophageal reflux disease with esophagitis K 21.0 Active 678345307 Problem Erectile dysfunction, unspecified erectile dysfunction typ e N52.9 Active 507137788 Problem Candidal dermatitis B37.2 Active 69843715 Problem Psychophysiological insomnia F51.04 A ctive 791152586 Problem Wheezing R06.2 Active 35422159 Problem Anxiety F41.9 Active 17279255 Problem Primary osteoarthritis of left hip M16.12 Active 076983388 Problem Idiopathic peripheral neuropathy G60.9 Active 32045819 Problem Low back pain M54.5 Active 076415 005 Problem Pain in right foot M79.671 Active 4 1535487 Problem Pain in right knee M25.561 Active 3 51018601175608 Problem Pure hypercholesterolemia E78.00 Acti ve 963286719 Problem Other chronic pain G89.29 Active 8 2597589 Problem Mood disorder F39 Active 951196 05 Problem Anxiety disorder, unspecified F41.9 Active 931098866 Problem Unspecified mood [affective] disorder F39 Active 240348638 Problem Essential hypertension I10 Active 27847474 Problem Mixed hyperlipidemia E78.2 Active 247175635 Problem Other stimulant dependence, 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 Active 663651902 Problem Cannabis dependence, uncomplicated F12.20 Active 18063945 Problem 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 Active 977968275 Problem Marijuana abuse F12.10 Active 3734 4009 ALLERGIES Substance Reaction Event Type Date Status Codeine Sulfate stomach problems Drug Allergy March, Active bee stings Unknown Non Drug Allergy March, Active ENCOUNTERS Encounter Location Date Diagnosis [facility] [address] [id number] [address] [place] [address] Jun, [facility] [address] [id number] [address] [place] [address] Jun, Other chronic pain G89.29 an d Pain in right knee M25.561 [facility] [address] [id number] [address] [place] [address] May, Primary osteoarthritis of le ft hip M16.12 ; Pain in left hip M25.552 ; Other acute postprocedural pain G89.18 and Anxiety F41.9 [facility] [address] [id number] [address] [place] [id number] May, [facility] [address] [id number] [address] [place] [address] Apr, Pain in right knee M25.561 a nd Mood disorder F39 [facility] [address] [id number] [address] [place] [phone] Apr, [facility] [address] [id number] [address] [place] [id number] March, [facility] [address] [id number] [address] [place] [id number] March, Encounter for dental exam an d cleaning w/o abnormal findings Z01.20 [facility] [address] [id number] [address] [place] [id number] March, Dental examination Z01.20 [facility] [address] [id number] [address] [place] [address] [id number] March, Dental examination Z01.20 [facility] [address] [id number] [address] [place] [phone] March, [facility] [address] [id number] [address] [place] [phone] March, [facility] [address] [id number] [address] [place] [phone] Feb, [facility] [address] [id number] [address] [place] [id number] Feb, Primary osteoarthritis of le ft hip M16.12 [facility] [address] [id number] [address] [place] [address] Feb, Other chronic pain G89.29 an d Pain in left hip M25.552 [facility] [address] [id number] [address] [place] [address] Feb, Acute pain of left hip M25.5 52 [facility] [address] [id number] [address] [place] [id number] Feb, Mood disorder F39 and Pain i n right knee M25.561 [facility] [address] [id number] [address] [place] [id number] Jan, Other chronic pain G89.29 [facility] [address] [id number] [address] [place] [address] Jan, Mood disorder F39 [facility] [address] [id number] [address] [place] [address] Jan, Pain in right knee M25.561 [facility] [address] [id number] [address] [place] [address] Jan, Pain in left hip M25.552 and Other chronic pain G89.29 [facility] [address] [id number] [address] [place] [address] Jan, Acute pain of left hip M25.5 52 [facility] [address] [id number] [address] [place] [id number] Jan, Acute pain of left hip M25.5 52 [facility] [address] [id number] [address] [place] [address] Jan, Mood disorder F39 and Acute pain of left hip M25.552 [facility] [address] [id number] [address] [place] [address] Nov, Mood disorder F39 [place] [id number] [place] [id number] [address] [place] [id number] Oct, Essential hypertension I10 ; Mixed hyperlipidemia E78.2 and Low back pain M54.5 [facility] [address] [place] [id number] [place] [id number] May, [place] [address] [address] Apr, Essential hypertension I10 ; Anger R45.4 ; Mixed hyperlipidemia E78.2 ; Drug-induced erectile dysfunction N52.2 ; Gastroesophageal reflux disease with esophagitis K21.0 ; Pure hypercholesterolemia E78.00 ; Pain in right knee M25.561 ; Psychophysiological insomnia F51.04 and Wheezing R06.2 [place] [address] [place] [id number] [address] [place] [address] March, Hx of cervical spine surgery Z98.89 [place] [address] [place] [id number] [address] [place] [address] March, [place] [address] [address] Feb, Anxiety associated with depr ession F41.8 [place] [address] [place] [id number] [address] [place] [address] Jan, Anxiety associated with depr ession F41.8 [place] [address] [place] [id number] [address] [place] [phone] Dec, [facility] [address] [place] [id number] [address] [place] [phone] Dec, [place] [address] [place] [id number] [address] [place] [phone] Dec, Essential hypertension I10 ; Erectile dysfunction, unspecified erectile dysfunction type N52.9 and Hyperlipemia E78.5 [place] [address] [place] [id number] [place] [address] Nov, Essential hypertension I10 ; Hx of cervical spine surgery Z98.89 ; Erectile dysfunction, unspecified erectile dysfunction type N52.9 ; Idiopathic peripheral neuropathy G60.9 ; Anger R45.4 ; Anxiety associated with depression F41.8 ; Hyperlipemia E78.5 ; Wheezing R06.2 and Has daytime drowsiness R40.0 [facility] [address] [address] Nov, [facility] [address] [address] Nov, [facility] [address] [address] Sep, [facility] [address] [address] Sep, Acute midline low back pain without sciatica M54.5 [place] [address] [address] Sep, Acute bilateral low back ekta n without sciatica M54.5 [place] [address] [address] Aug, [facility] [address] [address] Jun, Wheezing R06.2 ; Candidal de rmatitis B37.2 ; Essential hypertension I10 ; Erectile dysfunction, unspecified erectile dysfunction type N52.9 ; Idiopathic peripheral neuropathy G60.9 ; Mixed hyperlipidemia E78.2 and Other stimulant dependence, 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 [facility] [address] [address] March, Essential hypertension I10 ; Hx of cervical spine surgery Z98.89 ; Idiopathic peripheral neuropathy G60.9 ; Mixed hyperlipidemia E78.2 ; Anger R45.4 ; Drug-induced erectile dysfunction N52.2 and Gastroesophageal reflux disease with esophagitis K21.0 [facility] [address] [place] [address] Feb, [facility] [address] [address] Dec, Low back pain M54.5 [place] [address] [address] Dec, [place] [address] [address] Dec, Unspecified mood [affective] disorder F39 ; Anxiety disorder, unspecified F41.9 ; Other stimulant dependence, 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 and Cannabis dependence, uncomplicated F12.20 [place] [address] [address] Dec, Essential hypertension I10 ; Hyperlipemia E78.5 ; Erectile dysfunction, unspecified erectile dysfunction type N52.9 ; Anger R45.4 ; Mixed hyperlipidemia E78.2 ; Anxiety associated with depression F41.8 ; Elevated serum creatinine R79.89 ; 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 and Marijuana abuse F12.10 [place] [address] [address] Oct, Essential hypertension I10 ; Idiopathic peripheral neuropathy G60.9 ; Low back pain M54.5 ; Hx of cervical spine surgery Z98.89 ; Erectile dysfunction, unspecified erectile dysfunction type N52.9 ; Anger R45.4 ; Mixed hyperlipidemia E78.2 and Anxiety associated with depression F41.8 [place] [address] [address] Oct, Unspecified mood [affective] disorder F39 and Anxiety disorder, unspecified F41.9 [place] [address] [address] Oct, Hyperlipemia E78.5 [place] [address] [id number] 15 Oct, 2015 Essential hypertension I10 [place] [address] [address] Oct, [facility] [address] [id number] [address] [place] [address] Oct, Essential hypertension I10 ; Idiopathic peripheral neuropathy G60.9 ; Low back pain M54.5 ; Hx of cervical spine surgery Z98.89 ; Pain in right hand M79.641 ; Pain of left hand M79.642 ; Pain in left foot M79.672 ; Pain in right foot M79.671 ; Erectile dysfunction, unspecified erectile dysfunction type N52.9 and Anger R45.4 [facility] [address] [id number] [address] [place] [address] Sep, [facility] [address] [id number] [address] [place] [id number] Jul, [facility] [address] [id number] [address] [place] [phone] Jun, [facility] [address] [id number] [address] [place] [phone] May, [facility] [address] [id number] [address] [place] [address] Apr, [facility] [address] [id number] [address] [place] [phone] March, [facility] [address] [id number] [address] [place] [address] Feb, [facility] [address] [id number] [address] [place] [id number] Feb, [facility] [address] [id number] [address] [place] [phone] Jan, [facility] [address] [id number] [address] [place] [id number] Jan, [facility] [address] [id number] [address] [place] [phone] Nov, [facility] [address] [id number] [address] [place] [address], [place] [address] Nov, [facility] [address] [id number] [address] [place] [address], [place] [address] Nov, [facility] [address] [id number] [address] [place] [address], [place] [address] Nov, [facility] [address] [id number] [address] [place] [address], [place] [address] Nov, [facility] [address] [id number] [address] [place] [address], [place] [address] Nov, [facility] [address] [id number] [address] [place] [address], [place] [address] Oct, [facility] [address] [id number] [address] [place] [address], [place] [address] Oct, [facility] [address] [id number] [address] [place] [address], [place] [address] Oct, [facility] [address] [id number] [address] [place] [address], [place] [address] Oct, [facility] [address] [id number] [address] [place] [address], [place] [address] Sep, [facility] [address] [id number] [address] [place] [address], [place] [address] Sep, [facility] [address] [id number] [address] [place] [address], [place] [address] Sep, [facility] [address] [id number] [address] [place] [address], [place] [address] Sep, [facility] [address] [id number] [address] [place] [address], [place] [address] Sep, [facility] [address] [id number] [address] [place] [address], [place] [address] Aug, [facility] [address] [id number] [address] [place] [address], [place] [address] Aug, [facility] [address] [id number] [address] [place] [address], [place] [address] 15 Aug, 2014 [facility] [address] [id number] [address] [place] [address], [place] [address] 15 Aug, 2014 [facility] [address] [id number] [address] [place] [address], [place] [address] 15 Aug, 2014 [facility] [address] [id number] [address] [place] [address], [place] [address] 15 Aug, 2014 [facility] [address] [id number] [address] [place] [address], [place] [address] 13 Aug, 2014 [facility] [address] [id number] [address] [place] [address], [place] [address] 07 Aug, 2014 [facility] [address] [id number] [address] [place] [address], [place] [address] 07 Aug, 2014 [facility] [address] [id number] [address] [place] [address], [place] [address] 06 Aug, 2014 [facility] [address] [id number] [address] [place] [address], [place] [address] 06 Aug, 2014 [facility] [address] [id number] [address] [place] [address], [place] [address] 19 Jul, 2014 [facility] [address] [id number] [address] [place] [address], [place] [address] 19 Jul, 2014 [facility] [address] [id number] [address] [place] [address], [place] [address] 18 Jul, 2013 [facility] [address] [id number] [address] [place] [address], [place] [address] 18 Jul, 2014 [facility] [address] [id number] [address] [place] [address], [place] [address] Jun, [facility] [address] [id number] [address] [place] [address], [place] [address] Jun, [facility] [address] [id number] [address] [place] [address], [place] [address] Jun, [facility] [address] [id number] [facility] [place] [address] Jun, [facility] [address] [id number] [address] [place] [address], [place] [address] Jun, [facility] [address] [id number] [address] [place] [address], [place] [address] Jun, [facility] [address] [id number] [address] [place] [address], [place] [address] May, [facility] [address] [id number] [address] [place] [address], [place] [address] May, [facility] [address] [id number] [address] [place] [address], [place] [address] May, [facility] [address] [id number] [address] [place] [address], [place] [address] May, [facility] [address] [id number] [address] [address], [place] [id number] May, [facility] [address] [id number] [address] [place] [address], [place] [address] May, [facility] [address] [id number] [address] [place] [address], [place] [address] May, [facility] [address] [id number] [address] [place] [address], [place] [address] May, [facility] [address] [id number] [address] [place] [address], [place] [address] May, [facility] [address] [id number] [address] [place] [address], [place] [address] May, [facility] [address] [id number] [address] [place] [address], [place] [address] May, [facility] [address] [id number] [address] [place] [address], [place] [address] May, [facility] [address] [id number] [address] [place] [address], [place] [address] Apr, [facility] [address] [id number] [address] [place] [address], [place] [address] Apr, [facility] [address] [id number] [address] [place] [address], [place] [address] March, [facility] [address] [id number] [address] [place] [address], [place] [address] March, [facility] [address] [id number] [address] [place] [address], [place] [address] March, [facility] [address] [id number] [address] [place] [address], [place] [address] March, [facility] [address] [id number] [address] [place] [address], [place] [address] Feb, [facility] [address] [id number] [address] [place] [address], [place] [address] Feb, [facility] [address] [id number] [address] [place] [address], [place] [address] Jan, [facility] [address] [id number] [address] [place] [address], [place] [address] Jan, [facility] [address] [id number] [address] [place] [address], [place] [address] Jan, [facility] [address] [id number] [address] [place] [address], [place] [address] Jan, [facility] [address] [id number] [address] [place] [address], [place] [address] Dec, [facility] [address] [id number] [address] [place] [address], [place] [address] Dec, [facility] [address] [id number] [address] [place] [address], [place] [address] Nov, [facility] [address] [id number] [address] [place] [address], [place] [address] Nov, [facility] [address] [id number] [address] [place] [address], [place] [address] Nov, [facility] [address] [id number] [address] [place] [address], [place] [address] Nov, [facility] [address] [id number] [address] [place] [address], [place] [address] Oct, [facility] [address] [id number] [address] [place] [address], [place] [address] Oct, [facility] [address] [id number] [address] [place] [address], [place] [address] Sep, [facility] [address] [id number] [address] [place] [address], [place] [address] Sep, [facility] [address] [id number] [address] [place] [address], [place] [address] Jul, [facility] [address] [id number] [address] [place] [address], [place] [address] Jul, [facility] [address] [id number] [address] [place] [address], [place] [address] Jul, [facility] [address] [id number] [address] [place] [address], [place] [address] Jun, [facility] [address] [id number] [address] [place] [address], [place] [address] Jun, [facility] [address] [id number] [address] [place] [address], [place] [address] May, [facility] [address] [id number] [address] [place] [address], [place] [address] May, [facility] [address] [id number] [address] [place] [address], [place] [address] May, [facility] [address] [id number] [address] [place] [address], [place] [address] March, [facility] [address] [id number] [address] [place] [address] 05 Jan, 2013 [facility] [address] [id number] [address] [place] [address] 05 Jan, 2013 [facility] [address] [id number] [address] [place] [phone] Jan, [facility] [address] [id number] [address] [place] [phone] Dec, [facility] [address] [id number] [address] [place] [phone] May, [facility] [address] [id number] [address] [place] [phone] March, [facility] [address] [id number] [address] [place] [phone] Jan, [facility] [address] [id number] [address] [place] [phone] Aug, [facility] [address] [id number] [address] [place] [phone] Aug, [facility] [address] [id number] [address] [place] [phone] Aug, [facility] [address] [id number] [address] [place] [id number] Jun, [facility] [address] [id number] [address] [place] [phone] May, [facility] [address] [id number] [address] [place] [id number] Oct, IMMUNIZATIONS No Known Immunizations SOCIAL HISTORY Never Assessed REASON FOR VISIT DEBRIDEMENT PLAN OF CARE Activity Details Follow Up prn Reason:SCALE AND ROOT PL ANE/EVAL PERIO CONDITION VITAL SIGNS Height 66 in 2018-03-26 Blood pressure systolic 150 mmHg 2018-03-26 Blood pressure diastolic 82 mmHg 2018-03-26 MEDICATIONS Medication Instructions Dosage Frequency Start Date End Date Duration S tatus Lisinopril 10 mg Orally Once a day 1 tablet 24h Oct, Active Norvasc 5 mg Orally Once a day 1 tablet 24h Dec, Unknown Neurontin 800 MG Orally 3 times a day 1 tablet 8h 3 0 days Unknown Trazodone HCl 150 MG Orally Once a day 1 tablet at bedtime 24h 2017 Active Citalopram Hydrobromide 20 MG Orally Once a day 1 tablet 24h Feb, 30 day(s) Active Indomethacin 25 MG Orally Twice a day 1 capsule with food or milk 12h Unknown Viagra 100 MG Orally Once a day as needed 1 tablet as needed Unknown Flexeril 10 mg Orally Three times a day 1 tablet as needed 8h 30 days Unknown RESULTS No Results PROCEDURES Procedure Date Ordered Result Body Site INTRAORL-PERIAPICAL 1 FILM [id number] March 26, 2018 EXTRAC ERUPTED TOOTH/EXPOSED ROOT March 26, 2018 Full mouth debridement March 26, 2018 EXTRAC ERUPTED TOOTH/EXPOSED ROOT March 26, 2018 INSTRUCTIONS MEDICATIONS ADMINISTERED No [...]
--- OUTSIDE RECORDS SUMMARY | 2020-02-05 11:06 | XMS REPORT ---
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2 Active 58109483 Problem Anxiety F41.9 Active 43513550 Problem Primary osteoarthritis of left hip M16.12 Active 007099518 Problem Idiopathic peripheral neuropathy G60.9 Active 96466967 Problem Low back pain M54.5 Active 843501 005 Problem Pain in right foot M79.671 Active 4 5558596 Problem Pain in right knee M25.561 Active 3 73541213712459 Problem Pure hypercholesterolemia E78.00 Acti ve 757723975 Problem Other chronic pain G89.29 Active 8 2897023 Problem Mood disorder F39 Active 411738 05 Problem Anxiety disorder, unspecified F41.9 Active 609643885 Problem Unspecified mood [affective] disorder F39 Active 403054916 Problem Essential hypertension I10 Active 32663506 Problem Mixed hyperlipidemia E78.2 Active 279762169 Problem Other stimulant dependence, 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 Active 521832856 Problem Cannabis dependence, uncomplicated F12.20 Active 08253270 Problem 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 Active 376960523 Problem Marijuana abuse F12.10 Active 3734 4009 ALLERGIES Substance Reaction Event Type Date Status Codeine Sulfate stomach problems Drug Allergy Feb, Active ENCOUNTERS Encounter Location Date Diagnosis [facility] [address] [id number] [address] [place] [id number] May, Primary osteoarthritis of le ft hip M16.12 ; Pain in left hip M25.552 ; Other acute postprocedural pain G89.18 and Anxiety F41.9 [facility] [address] [id number] [address] [place] [phone] May, [facility] [address] [id number] [address] [place] [phone] Apr, Pain in right knee M25.561 a nd Mood disorder F39 [facility] [address] [id number] [address] [place] [phone] Apr, [facility] [address] [id number] [address] [place] [phone] March, [facility] [id number] [place] [id number] March, Encounter for dental exam an d cleaning w/o abnormal findings Z01.20 [facility] [address] [id number] [address] [place] [id number] March, Dental examination Z01.20 [facility] [address] [id number] [address] [place] [phone] March, Dental examination Z01.20 [facility] [address] [id number] [address] [place] [phone] March, [facility] [address] [id number] [address] [place] [phone] March, [facility] [address] [id number] [address] [place] [phone] Feb, [facility] [address] [id number] [address] [place] [phone] Feb, Primary osteoarthritis of le ft hip M16.12 [facility] [address] [id number] [address] [place] [phone] Feb, Other chronic pain G89.29 an d Pain in left hip M25.552 [facility] [address] [id number] [address] [place] [phone] Feb, Acute pain of left hip M25.5 52 [facility] [address] [id number] [address] [place] [phone] Feb, Mood disorder F39 and Pain i n right knee M25.561 [facility] [address] [id number] [address] [place] [phone] Jan, Other chronic pain G89.29 [facility] [address] [id number] [address] [place] [phone] Jan, Mood disorder F39 [facility] [address] [id number] [address] [place] [phone] Jan, Pain in right knee M25.561 [facility] [address] [id number] [address] [place] [phone] Jan, Pain in left hip M25.552 and Other chronic pain G89.29 [facility] [address] [id number] [address] [place] [phone] Jan, Acute pain of left hip M25.5 52 [facility] [address] [id number] [address] [place] [phone] Jan, Acute pain of left hip M25.5 52 [facility] [address] [id number] [address] [place] [phone] Jan, Mood disorder F39 and Acute pain of left hip M25.552 [facility] [address] [id number] [address] [place] [phone] Nov, Mood disorder F39 [facility] [address] [id number] [address] [place] [phone] Oct, Essential hypertension I10 ; Mixed hyperlipidemia E78.2 and Low back pain M54.5 [facility] [id number] [place] [id number] May, [place] [address] [id number] Apr, Essential hypertension I10 ; Anger R45.4 ; Mixed hyperlipidemia E78.2 ; Drug-induced erectile dysfunction N52.2 ; Gastroesophageal reflux disease with esophagitis K21.0 ; Pure hypercholesterolemia E78.00 ; Pain in right knee M25.561 ; Psychophysiological insomnia F51.04 and Wheezing R06.2 [place] [address] [id number] March, Hx of cervical spine surgery Z98.89 [place] [address] [address] March, [place] [address] [address] Feb, Anxiety associated with depr ession F41.8 [place] [address] [address] Jan, Anxiety associated with depr ession F41.8 [place] [address] [address] Dec, [place] [address] [address] Dec, [place] [address] [address] Dec, Essential hypertension I10 ; Erectile dysfunction, unspecified erectile dysfunction type N52.9 and Hyperlipemia E78.5 [place] [address] [address] Nov, Essential hypertension I10 ; Hx of cervical spine surgery Z98.89 ; Erectile dysfunction, unspecified erectile dysfunction type N52.9 ; Idiopathic peripheral neuropathy G60.9 ; Anger R45.4 ; Anxiety associated with depression F41.8 ; Hyperlipemia E78.5 ; Wheezing R06.2 and Has daytime drowsiness R40.0 [facility] [address] [place] [id number] [address] [place] [phone] Nov, [facility] [address] [address] Nov, [facility] [address] [id number] Sep, [facility] [address] [address] Sep, Acute midline low back pain without sciatica M54.5 [place] [address] [address] Sep, Acute bilateral low back ekta n without sciatica M54.5 [facility] [address] [address] Aug, [facility] [address] [address] Jun, Wheezing R06.2 ; Candidal de rmatitis B37.2 ; Essential hypertension I10 ; Erectile dysfunction, unspecified erectile dysfunction type N52.9 ; Idiopathic peripheral neuropathy G60.9 ; Mixed hyperlipidemia E78.2 and Other stimulant dependence, 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 [facility] [address] [address] March, Essential hypertension I10 ; Hx of cervical spine surgery Z98.89 ; Idiopathic peripheral neuropathy G60.9 ; Mixed hyperlipidemia E78.2 ; Anger R45.4 ; Drug-induced erectile dysfunction N52.2 and Gastroesophageal reflux disease with esophagitis K21.0 [facility] [address] [address] Feb, [facility] [address] [address] Dec, Low back pain M54.5 [facility] [address] [address] Dec, [facility] [id number] [place] [phone] Dec, Unspecified mood [affective] disorder F39 ; Anxiety disorder, unspecified F41.9 ; Other stimulant dependence, 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 and Cannabis dependence, uncomplicated F12.20 [place] [address] [place] [id number] [address] [place] [phone] Dec, Essential hypertension I10 ; Hyperlipemia E78.5 ; Erectile dysfunction, unspecified erectile dysfunction type N52.9 ; Anger R45.4 ; Mixed hyperlipidemia E78.2 ; Anxiety associated with depression F41.8 ; Elevated serum creatinine R79.89 ; 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 and Marijuana abuse F12.10 [place] [address] [place] [id number] [address] [place] [phone] Oct, Essential hypertension I10 ; Idiopathic peripheral neuropathy G60.9 ; Low back pain M54.5 ; Hx of cervical spine surgery Z98.89 ; Erectile dysfunction, unspecified erectile dysfunction type N52.9 ; Anger R45.4 ; Mixed hyperlipidemia E78.2 and Anxiety associated with depression F41.8 [place] [address] [address] Oct, Unspecified mood [affective] disorder F39 and Anxiety disorder, unspecified F41.9 [place] [address] [place] [id number] [address] [place] [phone] Oct, Hyperlipemia E78.5 [place] [address] [address] Oct, Essential hypertension I10 [place] [address] [address] Oct, [place] [address] [address] Oct, Essential hypertension I10 ; Idiopathic peripheral neuropathy G60.9 ; Low back pain M54.5 ; Hx of cervical spine surgery Z98.89 ; Pain in right hand M79.641 ; Pain of left hand M79.642 ; Pain in left foot M79.672 ; Pain in right foot M79.671 ; Erectile dysfunction, unspecified erectile dysfunction type N52.9 and Anger R45.4 [facility] [address] [id number] [address] [place] [id number] Sep, [facility] [address] [id number] [address] [place] [phone] Jul, [facility] [address] [id number] [address] [place] [phone] Jun, [facility] [address] [id number] [address] [place] [phone] May, [facility] [address] [id number] [address] [place] [phone] Apr, [facility] [address] [id number] [address] [place] [id number] March, [facility] [address] [id number] [address] [place] [phone] Feb, [facility] [address] [id number] [address] [place] [phone] Feb, [facility] [address] [id number] [address] [place] [phone] Jan, [facility] [address] [id number] [address] [place] [phone] Jan, [facility] [address] [id number] [address] [place] [phone] Nov, [facility] [address] [id number] [address] [place] [phone] Nov, [facility] [address] [id number] [address] [place] [phone] Nov, [facility] [address] [id number] [address] [place] [phone] Nov, [facility] [address] [id number] [address] [place] [address], [place] [address] Nov, [facility] [address] [id number] [address] [place] [address], [place] [address] Nov, [facility] [address] [id number] [address] [place] [address], [place] [address] Oct, [facility] [address] [id number] [address] [place] [address], [place] [address] Oct, [facility] [address] [id number] [address] [place] [address], [place] [address] Oct, [facility] [address] [id number] [address] [place] [address], [place] [address] Oct, [facility] [address] [id number] [address] [place] [address], [place] [address] Sep, [facility] [address] [id number] [address] [place] [address], [place] [address] Sep, [facility] [address] [id number] [address] [place] [address], [place] [address] Sep, [facility] [address] [id number] [address] [place] [address], [place] [address] Sep, [facility] [address] [id number] [address] [place] [address], [place] [address] Sep, [facility] [address] [id number] [address] [place] [address], [place] [address] 16 Aug, 2014 [facility] [address] [id number] [address] [place] [address], [place] [address] Aug, [facility] [address] [id number] [address] [place] [address], [place] [address] 15 Aug, 2014 [facility] [address] [id number] [address] [place] [phone] Aug, [facility] [address] [id number] [address] [place] [id number] 15 Aug, 2014 [facility] [address] [id number] [address] [place] [address], [place] [address] 15 Aug, 2014 [facility] [address] [id number] [address] [place] [id number] 13 Aug, 2014 [facility] [address] [id number] [address] [place] [address], [place] [address] Aug, [facility] [address] [id number] [address] [place] [phone] Aug, [facility] [address] [id number] [address] [place] [address], [place] [address] Aug, [facility] [address] [id number] [address] [place] [address], [place] [address] Aug, [facility] [address] [id number] [address] [place] [address], [place] [address] Jul, [facility] [address] [id number] [address] [place] [address], [place] [address] Jul, [facility] [address] [id number] [address] [place] [address], [place] [address] 18 Jul, 2014 [facility] [address] [id number] [address] [place] [id number] Jul, [facility] [address] [id number] [address] [place] [phone] Jun, [facility] [address] [id number] [address] [place] [phone] Jun, [facility] [address] [id number] [address] [place] [phone] Jun, [facility] [address] [id number] [address] [place] [phone] Jun, [facility] [address] [id number] [address] [place] [address], [place] [address] Jun, [facility] [address] [id number] [address] [place] [address], [place] [address] Jun, [facility] [address] [id number] [address] [place] [address], [place] [address] May, [facility] [address] [id number] [address] [place] [address], [place] [address] May, [facility] [address] [id number] [address] [place] [address], [place] [address] May, [facility] [address] [id number] [address] [place] [address], [place] [address] May, [facility] [address] [id number] [address] [place] [address], [place] [id number] May, [facility] [address] [id number] [address] [place] [address], [place] [address] May, [facility] [address] [id number] [address] [place] [address], [place] [address] May, [facility] [address] [id number] [address] [place] [address], [place] [address] May, [facility] [address] [id number] [address] [place] [address], [place] [address] May, [facility] [address] [id number] [address] [place] [address], [place] [address] May, [facility] [address] [id number] [address] [place] [address], [place] [address] May, [facility] [address] [id number] [address] [place] [address], [place] [address] May, [facility] [address] [id number] [address] [place] [address], [place] [address] Apr, [facility] [address] [id number] [address] [place] [address], [place] [address] Apr, [facility] [address] [id number] [address] [place] [address], [place] [address] March, [facility] [address] [id number] [facility] [place] [address] March, [facility] [address] [id number] [facility] [place] [address] March, [facility] [address] [id number] [facility] [place] [address] March, [facility] [address] [id number] [address] [place] [address], [place] [address] Feb, [facility] [address] [id number] [address] [place] [address], [place] [address] Feb, [facility] [address] [id number] [address] [place] [address], [place] [address] Jan, [facility] [address] [id number] [address] [place] [address], [place] [address] Jan, [facility] [address] [id number] [address] [place] [address], [place] [address] Jan, [facility] [address] [id number] [address] [place] [address], [place] [address] Jan, [facility] [address] [id number] [address] [place] [address], [place] [address] Dec, [facility] [address] [id number] [address] [place] [address], [place] [address] Dec, [facility] [address] [id number] [address] [place] [address], [place] [address] Nov, [facility] [address] [id number] [address] [place] [address], [place] [address] Nov, [facility] [address] [id number] [address] [place] [address], [place] [address] Nov, [facility] [address] [id number] [address] [place] [address], [place] [address] Nov, [facility] [address] [id number] [address] [place] [address], [place] [address] 10 Oct, 2013 [facility] [address] [id number] [address] [place] [address], [place] [address] 10 Oct, 2013 [facility] [address] [id number] [address] [place] [address], [place] [address] Sep, [facility] [address] [id number] [address] [place] [address], [place] [address] Sep, [facility] [address] [id number] [address] [place] [address], [place] [address] Jul, [facility] [address] [id number] [address] [place] [address], [place] [address] Jul, [facility] [address] [id number] [address] [place] [address], [place] [address] Jul, [facility] [address] [id number] [address] [place] [address], [place] [address] Jun, [facility] [address] [id number] [address] [place] [address], [place] [id number] Jun, [facility] [address] [id number] [address] [place] [address], [place] [address] May, [facility] [address] [id number] [address] [place] [address], [place] [address] May, [facility] [address] [id number] [address] [place] [address], [place] [address] May, [facility] [address] [id number] [address] [place] [address], [place] [address] March, [facility] [address] [id number] [address] [place] [address], [place] [address] Jan, [facility] [address] [id number] [address] [place] [address], [place] [address] Jan, [facility] [address] [id number] [address] [place] [address], [place] [address] Jan, [facility] [address] [id number] [address] [place] [id number] Dec, [facility] [address] [id number] [address] [place] [phone] May, [facility] [address] [id number] [address] [place] [id number] March, [facility] [address] [id number] [address] [place] [id number] Jan, [facility] [address] [id number] [address] [place] [phone] Aug, [facility] [address] [id number] [address] [place] [phone] Aug, [facility] [address] [id number] [address] [place] [phone] Aug, [facility] [address] [id number] [address] [place] [phone] Jun, [facility] [address] [id number] [address] [place] [phone] May, [facility] [address] [id number] [address] [place] [phone] Oct, IMMUNIZATIONS Vaccine Route Administration Date Status TORADOL (IM) 60 MG/2ML (UP TO 15 MG) IM Intramuscular February 24, 2018 Administered SOCIAL HISTORY Never Assessed REASON FOR VISIT PT is here for concerns with his hip. PT is having trouble walking and in lots o f hannah-Jose LOBO PLAN OF CARE VITAL SIGNS Height 66 in 2018-02-24 Weight 198.7 lbs 2018-02-24 Temperature 98.2 degrees Fahrenheit 2018-02-24 Heart Rate 86 bpm 2018-02-24 Respiratory Rate 20 2018-02-24 BMI 32.07 kg/m2 2018-02-24 Blood pressure systolic 98 mmHg 2018-02-24 Blood pressure diastolic 62 mmHg 2018-02-24 MEDICATIONS Medication Instructions Dosage Frequency Start Date End Date Duration S tatus Neurontin 800 MG Orally 3 times a day 1 tablet 8h 3 0 days Active Norvasc 5 mg Orally Once a day 1 tablet 24h 09 Dec, 2015 Active Ketorolac Tromethamine 10 mg Orally every 6 hrs 1 tablet wi th food or milk as needed 6h Feb, Feb, 5 day(s) Active Indomethacin 25 MG Orally Twice a day 1 capsule with food or milk 12h Active Lisinopril 10 mg Orally Once a day 1 tablet 24h Oct, Active Trazodone HCl 150 MG Orally Once a day 1 tablet at bedtime 24h 2017 Not-Taking Viagra 100 MG Orally Once a day as needed 1 tablet as needed Not-Taking Citalopram Hydrobromide 20 MG Orally Once a day 1 tablet 24h Feb, 30 day(s) Active Flexeril 10 mg Orally Three times a day 1 tablet as needed 8h March, 30 days Active RESULTS Name Result Date Reference Range Xray : Hip, Left 2 views (IN HOUSE) 2018-02-24 PROCEDURES Procedure Date Ordered Result Body Site X-RAY EXAM HIP UNI 2-3 VIEWS February 24, 2018 THER/PROPH/DIAG INJ, SC/IM February 24, 2018 TORADOL (IM) 60 MG/2ML (UP TO 15 MG) February 24, 2018 INSTRUCTIONS MEDICATIONS ADMINISTERED No Known Medications [...]
--- OUTSIDE RECORDS SUMMARY | 2020-02-05 11:06 | XMS REPORT ---
Author Author Jelani PONCE Organization [facility] Address [address] [place] [address] Care Team Providers Care Chalk Cutter Name Role Phone FELICIA PONCE Unavailable PROBLEMS Type Condition ICD9-CM Code OZM88-YR Code Onset Dates Condition S tatus SNOMED Code Problem Hx of cervical spine surgery Z98.89 A ctive 951135362 Problem Drug-induced erectile dysfunction N52.2 Active 558914113 Problem Anger R45.4 Active 17587384 Problem Gastroesophageal reflux disease with esophagitis K 21.0 Active 052478256 Problem Erectile dysfunction, unspecified erectile dysfunction typ e N52.9 Active 385869973 Problem Candidal dermatitis B37.2 Active 81687582 Problem Psychophysiological insomnia F51.04 A ctive 699615305 Problem Wheezing R06.2 Active 49993782 Problem Anxiety F41.9 Active 52517266 Problem Primary osteoarthritis of left hip M16.12 Active 204648857 Problem Idiopathic peripheral neuropathy G60.9 Active 86885374 Problem Low back pain M54.5 Active 917479 005 Problem Pain in right foot M79.671 Active 4 9203116 Problem Pain in right knee M25.561 Active 3 55354103633408 Problem Pure hypercholesterolemia E78.00 Acti ve 731655677 Problem Other chronic pain G89.29 Active 8 0836687 Problem Mood disorder F39 Active 226847 05 Problem Anxiety disorder, unspecified F41.9 Active 299282388 Problem Unspecified mood [affective] disorder F39 Active 065133452 Problem Essential hypertension I10 Active 22258711 Problem Mixed hyperlipidemia E78.2 Active 130158360 Problem Other stimulant dependence, 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 Active 319259862 Problem Cannabis dependence, uncomplicated F12.20 Active 97345149 Problem 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 Active 613383791 Problem Marijuana abuse F12.10 Active 3734 4009 ALLERGIES No Information ENCOUNTERS Encounter Location Date Diagnosis [facility] [address] [facility] [id number] [address] [place] [address] May, Primary osteoarthritis of le ft hip M16.12 ; Pain in left hip M25.552 ; Other acute postprocedural pain G89.18 and Anxiety F41.9 [facility] [address] [id number] [address] [place] [address] May, [facility] [address] [id number] [address] [place] [address] Apr, Pain in right knee M25.561 a nd Mood disorder F39 [facility] [address] [id number] [address] [place] [address] Apr, [facility] [address] [id number] [address] [place] [id number] March, [facility] [address] [id number] [place] [address] [id number] March, Encounter for dental exam an d cleaning w/o abnormal findings Z01.20 [facility] [address] [id number] [address] [place] [address] [id number] March, Dental examination Z01.20 [facility] [address] [id number] [place] [address] [id number] March, Dental examination Z01.20 [facility] [address] [id number] [address] [place] [address] March, [facility] [address] [id number] [address] [place] [address] March, [facility] [address] [id number] [address] [place] [address] Feb, [facility] [address] [id number] [address] [place] [address] Feb, Primary osteoarthritis of le ft hip M16.12 [facility] [address] [id number] [address] [place] [address] Feb, Other chronic pain G89.29 an d Pain in left hip M25.552 [facility] [address] [id number] [address] [place] [address] Feb, Acute pain of left hip M25.5 52 [facility] [address] [id number] [address] [place] [address] Feb, Mood disorder F39 and Pain i n right knee M25.561 [facility] [address] [id number] [address] [place] [address] Jan, Other chronic pain G89.29 [facility] [address] [id number] [address] [place] [address] Jan, Mood disorder F39 [facility] [address] [id number] [address] [place] [address] Jan, Pain in right knee M25.561 [facility] [address] [id number] [address] [place] [address] Jan, Pain in left hip M25.552 and Other chronic pain G89.29 [facility] [address] [id number] [address] [place] [address] Jan, Acute pain of left hip M25.5 52 [facility] [address] [id number] [address] [place] [address] Jan, Acute pain of left hip M25.5 52 [facility] [address] [id number] [address] [place] [address] Jan, Mood disorder F39 and Acute pain of left hip M25.552 [facility] [address] [id number] [address] [place] [address] Nov, Mood disorder F39 [facility] [address] [facility] [id number] [address] [place] [address] Oct, Essential hypertension I10 ; Mixed hyperlipidemia E78.2 and Low back pain M54.5 [facility] [id number] [place] [address] [id number] May, [place] [address] [address] Apr, Essential hypertension I10 ; Anger R45.4 ; Mixed hyperlipidemia E78.2 ; Drug-induced erectile dysfunction N52.2 ; Gastroesophageal reflux disease with esophagitis K21.0 ; Pure hypercholesterolemia E78.00 ; Pain in right knee M25.561 ; Psychophysiological insomnia F51.04 and Wheezing R06.2 [place] [address] [address] March, Hx of cervical spine surgery Z98.89 [place] [address] [address] March, [place] [address] [address] Feb, Anxiety associated with depr ession F41.[address] [address] Jan, Anxiety associated with depr ession F41.8 [place] [address] [address] Dec, [place] [address] [address] Dec, [place] [address] [address] Dec, Essential hypertension I10 ; Hyperlipemia E78.5 and Erectile dysfunction, unspecified erectile dysfunction type N52.9 [place] [address] [address] Nov, Essential hypertension I10 ; Hx of cervical spine surgery Z98.89 ; Erectile dysfunction, unspecified erectile dysfunction type N52.9 ; Idiopathic peripheral neuropathy G60.9 ; Anger R45.4 ; Anxiety associated with depression F41.8 ; Hyperlipemia E78.5 ; Wheezing R06.2 and Has daytime drowsiness R40.0 [place] [address] [address] [facility] [id number] [address] [place] [address] Nov, [facility] [address] [place] [id number] [place] [address] Nov, [facility] [address] [facility] [id number] [address] [place] [address] Sep, [facility] [address] [address] Sep, Acute midline low back pain without sciatica M54.5 [facility] [address] [place] [id number] [place] [address] Sep, Acute bilateral low back ekta n without sciatica M54.5 [facility] [address] [place] [id number] [place] [address] Aug, [facility] [address] [address] Jun, Wheezing R06.2 ; Candidal de rmatitis B37.2 ; Essential hypertension I10 ; Erectile dysfunction, unspecified erectile dysfunction type N52.9 ; Idiopathic peripheral neuropathy G60.9 ; Mixed hyperlipidemia E78.2 and Other stimulant dependence, 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 [facility] [address] [address] March, Essential hypertension I10 ; Hx of cervical spine surgery Z98.89 ; Idiopathic peripheral neuropathy G60.9 ; Mixed hyperlipidemia E78.2 ; Anger R45.4 ; Drug-induced erectile dysfunction N52.2 and Gastroesophageal reflux disease with esophagitis K21.0 [facility] [address] [place] [id number] [address] [place] [address] Feb, [facility] [address] [address] Dec, Low back pain M54.5 [facility] [address] [place] [id number] [address] [place] [address] Dec, [facility] [address] [place] [id number] [address] [place] [address] Dec, Unspecified mood [affective] disorder F39 ; Anxiety disorder, unspecified F41.9 ; Other stimulant dependence, 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 and Cannabis dependence, uncomplicated F12.20 [place] [address] [address] Dec, Essential hypertension I10 ; Hyperlipemia E78.5 ; Erectile dysfunction, unspecified erectile dysfunction type N52.9 ; Anger R45.4 ; Mixed hyperlipidemia E78.2 ; Anxiety associated with depression F41.8 ; Elevated serum creatinine R79.89 ; 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 and Marijuana abuse F12.10 [place] [address] [address] Oct, Essential hypertension I10 ; Idiopathic peripheral neuropathy G60.9 ; Low back pain M54.5 ; Hx of cervical spine surgery Z98.89 ; Erectile dysfunction, unspecified erectile dysfunction type N52.9 ; Anger R45.4 ; Mixed hyperlipidemia E78.2 and Anxiety associated with depression F41.8 [place] [address] [address] Oct, Unspecified mood [affective] disorder F39 and Anxiety disorder, unspecified F41.9 [place] [address] [address] Oct, Hyperlipemia E78.5 [place] [id number] [place] [address] Oct, Essential hypertension I10 [place] [address] [place] [id number] [address] [place] [address] Oct, [place] [address] [address] Oct, Essential hypertension I10 ; Idiopathic peripheral neuropathy G60.9 ; Low back pain M54.5 ; Hx of cervical spine surgery Z98.89 ; Pain in right hand M79.641 ; Pain of left hand M79.642 ; Pain in left foot M79.672 ; Pain in right foot M79.671 ; Erectile dysfunction, unspecified erectile dysfunction type N52.[address] [facility] [address] [id number] [address] [place] [address] Sep, [facility] [address] [id number] [address] [place] [address] Jul, [facility] [address] [id number] [address] [place] [address] Jun, [facility] [address] [id number] [address] [place] [address] May, [facility] [address] [id number] [address] [place] [address] Apr, [facility] [address] [id number] [address] [place] [address] March, [facility] [address] [id number] [address] [place] [address] Feb, [facility] [address] [id number] [address] [place] [address] Feb, [facility] [address] [id number] [address] [place] [address] Jan, [facility] [address] [id number] [address] [place] [address] Jan, [facility] [address] [id number] [address] [place] [address] Nov, [facility] [address] [id number] [address] [place] [address] Nov, [facility] [address] [id number] [address] [place] [address] Nov, [facility] [address] [id number] [address] [place] [address] Nov, [facility] [address] [id number] [address] [place] [address], [place] [address] Nov, [facility] [address] [id number] [address] [place] [address], [place] [address] Nov, [facility] [address] [id number] [address] [place] [address], [place] [address] Oct, [facility] [address] [id number] [address] [place] [address], [place] [address] Oct, [facility] [address] [id number] [address] [place] [address], [place] [address] Oct, [facility] [address] [id number] [address] [place] [address], [place] [address] Oct, [facility] [address] [id number] [address] [place] [address], [place] [address] Sep, [facility] [address] [id number] [address] [place] [address], [place] [address] Sep, [facility] [address] [id number] [address] [place] [address], [place] [address] Sep, [facility] [address] [id number] [address] [place] [address], [place] [address] Sep, [facility] [address] [id number] [address] [place] [address], [place] [address] Sep, [facility] [address] [id number] [address] [place] [address], [place] [address] 16 Aug, 2014 [facility] [address] [id number] [address] [place] [address], [place] [address] 16 Aug, 2014 [facility] [address] [id number] [address] [place] [address], [place] [address] 15 Aug, 2014 [facility] [address] [id number] [address] [place] [address], [place] [address] 15 Aug, 2014 [facility] [address] [id number] [address] [place] [address], [place] [address] 15 Aug, 2014 [facility] [address] [id number] [address] [place] [address], [place] [address] 15 Aug, 2014 [facility] [address] [id number] [address] [place] [address], [place] [address] 13 Aug, 2014 [facility] [address] [id number] [address] [place] [address], [place] [address] 07 Aug, 2014 [facility] [address] [id number] [address] [place] [address], [place] [address] 07 Aug, 2014 [facility] [address] [id number] [address] [place] [address], [place] [address] Aug, [facility] [address] [id number] [address] [place] [address], [place] [address] Aug, [facility] [address] [id number] [address] [place] [address], [place] [address] 19 Jul, 2014 [facility] [address] [id number] [address] [place] [address], [place] [address] Jul, [facility] [address] [id number] [address] [place] [address], [place] [address] 18 Jul, 2014 [facility] [address] [id number] [address] [place] [address], [place] [address] 18 Jul, 2014 [facility] [address] [id number] [address] [place] [address] Jun, [facility] [address] [id number] [address] [place] [address] Jun, [facility] [address] [id number] [address] [place] [address], [place] [address] Jun, [facility] [address] [id number] [address] [place] [address], [place] [address] Jun, [facility] [address] [id number] [address] [place] [address] Jun, [facility] [address] [id number] [address] [place] [address] Jun, [facility] [address] [id number] [address] [place] [address], [place] [address] May, [facility] [address] [id number] [address] [place] [address], [place] [address] May, [facility] [address] [id number] [address] [place] [address], [place] [address] May, [facility] [address] [id number] [address] [place] [address], [place] [address] May, [facility] [address] [id number] [address] [place] [address], [place] [id number] May, [facility] [address] [id number] [address] [place] [address], [place] [address] May, [facility] [address] [id number] [address] [place] [address], [place] [address] May, [facility] [address] [id number] [address] [place] [address], [place] [address] May, [facility] [address] [id number] [address] [place] [address], [place] [address] May, [facility] [address] [id number] [address] [place] [address], [place] [address] May, [facility] [address] [id number] [address] [place] [address], [place] [address] May, [facility] [address] [id number] [address] [place] [address], [place] [address] May, [facility] [address] [id number] [address] [place] [address], [place] [address] Apr, [facility] [address] [id number] [address] [place] [address], [place] [address] Apr, [facility] [address] [id number] [address] [place] [address], [place] [address] March, [facility] [address] [id number] [address] [place] [address], [place] [address] March, [facility] [address] [id number] [address] [place] [address], [place] [address] March, [facility] [address] [id number] [address] [place] [address], [place] [address] March, [facility] [address] [id number] [address] [place] [address], [place] [address] Feb, [facility] [address] [id number] [address] [place] [address], [place] [address] Feb, [facility] [address] [id number] [address] [place] [address], [place] [address] Jan, [facility] [address] [id number] [address] [place] [address], [place] [address] Jan, [facility] [address] [id number] [address] [place] [address], [place] [address] Jan, [facility] [address] [id number] [address] [place] [address], [place] [address] Jan, [facility] [address] [id number] [address] [place] [address], [place] [address] Dec, [facility] [address] [id number] [address] [place] [address], [place] [address] Dec, [facility] [address] [id number] [address] [place] [address], [place] [address] Nov, [facility] [address] [id number] [address] [place] [address], [place] [address] Nov, [facility] [address] [id number] [address] [place] [address], [place] [address] Nov, [facility] [address] [id number] [address] [place] [address], [place] [address] Nov, [facility] [address] [id number] [address] [place] [address], [place] [address] Oct, [facility] [address] [id number] [address] [place] [address], [place] [address] Oct, [facility] [address] [id number] [address] [place] [address], [place] [address] Sep, [facility] [address] [id number] [address] [place] [address], [place] [address] Sep, [facility] [address] [id number] [address] [place] [address], [place] [address] Jul, [facility] [address] [id number] [address] [place] [address], [place] [address] Jul, [facility] [address] [id number] [address] [place] [address], [place] [address] Jul, [facility] [address] [id number] [address] [place] [address], [place] [address] Jun, [facility] [address] [id number] [address] [place] [address], [place] [address] Jun, [facility] [address] [id number] [address] [place] [address], [place] [address] May, [facility] [address] [id number] [address] [place] [address], [place] [address] May, [facility] [address] [id number] [address] [place] [address], [place] [address] May, [facility] [address] [id number] [address] [place] [address], [place] [address] March, [facility] [address] [id number] [address] [place] [address], [place] [address] Jan, [facility] [address] [id number] [address] [place] [address], [place] [address] Jan, [facility] [address] [id number] [address] [place] [address], [place] [address] Jan, [facility] [address] [id number] [address] [place] [phone] Dec, [facility] [address] [id number] [address] [place] [phone] May, [facility] [address] [id number] [address] [place] [phone] March, [facility] [address] [id number] [address] [place] [phone] Jan, [facility] [address] [id number] [address] [place] [phone] Aug, [facility] [address] [id number] [address] [place] [id number] Aug, [facility] [address] [id number] [address] [place] [phone] Aug, [facility] [address] [facility] [id number] [address] [place] [phone] Jun, [facility] [address] [id number] [address] [place] [phone] May, [facility] [address] [facility] [id number] [address] [place] [phone] Oct, IMMUNIZATIONS No Known Immunizations SOCIAL HISTORY Never Assessed REASON FOR VISIT lt. hip pain, failed on conventional meds and IA injection. PLAN OF CARE Activity Details Follow Up prn Reason: VITAL SIGNS MEDICATIONS No Known Medications RESULTS [...]
--- OUTSIDE RECORDS SUMMARY | 2020-02-05 11:06 | XMS REPORT ---
Author Author Jelani ESPARZA Organization [facility] Address [address] [place] [address] Care Team Providers Care Criminal Judge Name Role Phone JAYME ESPARZA Unavailable PROBLEMS Type Condition ICD9-CM Code HOB21-VW Code Onset Dates Condition S tatus SNOMED Code Problem Hx of cervical spine surgery Z98.89 A ctive 146970026 Problem Drug-induced erectile dysfunction N52.2 Active 463199900 Problem Anger R45.4 Active 57703139 Problem Gastroesophageal reflux disease with esophagitis K 21.0 Active 464035436 Problem Erectile dysfunction, unspecified erectile dysfunction typ e N52.9 Active 420350434 Problem Candidal dermatitis B37.2 Active 07994306 Problem Psychophysiological insomnia F51.04 A ctive 012913851 Problem Wheezing R06.2 Active 40860452 Problem Anxiety F41.9 Active 19903459 Problem Primary osteoarthritis of left hip M16.12 Active 331097175 Problem Idiopathic peripheral neuropathy G60.9 Active 29916936 Problem Low back pain M54.5 Active 004259 005 Problem Pain in right foot M79.671 Active 4 9148059 Problem Pain in right knee M25.561 Active 3 [id number] Problem Pure hypercholesterolemia E78.00 Acti ve 389024768 Problem Other chronic pain G89.29 Active 8 1472587 Problem Mood disorder F39 Active 326989 05 Problem Anxiety disorder, unspecified F41.9 Active 317733319 Problem Unspecified mood [affective] disorder F39 Active 789503898 Problem Essential hypertension I10 Active 04060654 Problem Mixed hyperlipidemia E78.2 Active 772099025 Problem Other stimulant dependence, 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 Active 008671987 Problem Cannabis dependence, uncomplicated F12.20 Active 58112722 Problem 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 Active 745456429 Problem Marijuana abuse F12.10 Active 7144 4009 ALLERGIES Substance Reaction Event Type Date Status Codeine Sulfate stomach problems Drug Allergy Feb, Active ENCOUNTERS Encounter Location Date Diagnosis [facility] [address] [id number] [address] [place] [address] May, Primary osteoarthritis of le ft hip M16.12 ; Pain in left hip M25.552 ; Other acute postprocedural pain G89.18 and Anxiety F41.9 [facility] [address] [id number] [address] [place] [address] May, [facility] [address] [id number] [address] [place] [address] Apr, Pain in right knee M25.561 a nd Mood disorder F39 [facility] [address] [id number] [address] [place] [address] Apr, [facility] [address] [id number] [address] [place] [id number] March, [facility] [address] [id number] [place] [id number] March, Encounter for dental exam an d cleaning w/o abnormal findings Z01.20 [facility] [address] [id number] [address] [place] [id number] March, Dental examination Z01.20 [facility] [address] [id number] [address] [place] [phone] March, Dental examination Z01.20 [facility] [address] [id number] [address] [place] [address] March, [facility] [address] [id number] [address] [place] [address] March, [facility] [address] [id number] [address] [place] [address] Feb, [facility] [address] [id number] [address] [place] [address] Feb, Primary osteoarthritis of le ft hip M16.12 [facility] [address] [id number] [address] [place] [address] Feb, Other chronic pain G89.29 an d Pain in left hip M25.552 [facility] [address] [id number] [address] [place] [address] Feb, Acute pain of left hip M25.5 52 [facility] [address] [id number] [address] [place] [address] Feb, Mood disorder F39 and Pain i n right knee M25.561 [facility] [address] [id number] [address] [place] [address] Jan, Other chronic pain G89.29 [facility] [address] [id number] [address] [place] [address] Jan, Mood disorder F39 [facility] [address] [id number] [address] [place] [address] Jan, Pain in right knee M25.561 [facility] [address] [id number] [address] [place] [address] Jan, Pain in left hip M25.552 and Other chronic pain G89.29 [facility] [address] [id number] [address] [place] [address] Jan, Acute pain of left hip M25.5 52 [facility] [address] [id number] [address] [place] [address] Jan, Acute pain of left hip M25.5 52 [facility] [address] [id number] [address] [place] [address] Jan, Mood disorder F39 and Acute pain of left hip M25.552 [facility] [address] [id number] [address] [place] [address] Nov, Mood disorder F39 [facility] [address] [id number] [address] [place] [address] Oct, Essential hypertension I10 ; Mixed hyperlipidemia E78.2 and Low back pain M54.5 [facility] [id number] [place] [id number] May, [place] [address] [address] Apr, Essential hypertension I10 ; Anger R45.4 ; Mixed hyperlipidemia E78.2 ; Drug-induced erectile dysfunction N52.2 ; Gastroesophageal reflux disease with esophagitis K21.0 ; Pure hypercholesterolemia E78.00 ; Pain in right knee M25.561 ; Psychophysiological insomnia F51.04 and Wheezing R06.2 [place] [address] [address] March, Hx of cervical spine surgery Z98.89 [place] [address] [address] March, [place] [address] [address] Feb, Anxiety associated with depr ession F41.8 [place] [address] [address] Jan, Anxiety associated with depr ession F41.8 [place] [address] [address] Dec, [place] [address] [address] Dec, [place] [address] [address] Dec, Essential hypertension I10 ; Erectile dysfunction, unspecified erectile dysfunction type N52.9 and Hyperlipemia E78.5 [place] [address] [address] Nov, Essential hypertension I10 ; Hx of cervical spine surgery Z98.89 ; Erectile dysfunction, unspecified erectile dysfunction type N52.9 ; Idiopathic peripheral neuropathy G60.9 ; Anger R45.4 ; Anxiety associated with depression F41.8 ; Hyperlipemia E78.5 ; Wheezing R06.2 and Has daytime drowsiness R40.0 [facility] [address] [place] [id number] [address] [place] [address] Nov, [facility] [address] [address] Nov, [facility] [address] [address] Sep, [facility] [address] [address] Sep, Acute midline low back pain without sciatica M54.5 [place] [address] [address] Sep, Acute bilateral low back ekta n without sciatica M54.5 [facility] [address] [address] Aug, [facility] [address] [address] Jun, Wheezing R06.2 ; Candidal de rmatitis B37.2 ; Essential hypertension I10 ; Erectile dysfunction, unspecified erectile dysfunction type N52.9 ; Idiopathic peripheral neuropathy G60.9 ; Mixed hyperlipidemia E78.2 and Other stimulant dependence, 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 [facility] [address] [address] March, Essential hypertension I10 ; Hx of cervical spine surgery Z98.89 ; Idiopathic peripheral neuropathy G60.9 ; Mixed hyperlipidemia E78.2 ; Anger R45.4 ; Drug-induced erectile dysfunction N52.2 and Gastroesophageal reflux disease with esophagitis K21.0 [facility] [address] [address] Feb, [facility] [address] [address] Dec, Low back pain M54.5 [facility] [address] [address] Dec, [facility] [id number] [place] [address] Dec, Unspecified mood [affective] disorder F39 ; Anxiety disorder, unspecified F41.9 ; Other stimulant dependence, 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 and Cannabis dependence, uncomplicated F12.20 [place] [address] [place] [id number] [address] [place] [address] Dec, Essential hypertension I10 ; Hyperlipemia E78.5 ; Erectile dysfunction, unspecified erectile dysfunction type N52.9 ; Anger R45.4 ; Mixed hyperlipidemia E78.2 ; Anxiety associated with depression F41.8 ; Elevated serum creatinine R79.89 ; 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 and Marijuana abuse F12.10 [place] [address] [place] [id number] [address] [place] [address] Oct, Essential hypertension I10 ; Idiopathic peripheral neuropathy G60.9 ; Low back pain M54.5 ; Hx of cervical spine surgery Z98.89 ; Erectile dysfunction, unspecified erectile dysfunction type N52.9 ; Anger R45.4 ; Mixed hyperlipidemia E78.2 and Anxiety associated with depression F41.8 [place] [address] [address] Oct, Unspecified mood [affective] disorder F39 and Anxiety disorder, unspecified F41.9 [place] [address] [place] [id number] [address] [place] [address] Oct, Hyperlipemia E78.5 [place] [address] [address] Oct, Essential hypertension I10 [place] [address] [address] Oct, [place] [address] [address] Oct, Essential hypertension I10 ; Idiopathic peripheral neuropathy G60.9 ; Low back pain M54.5 ; Hx of cervical spine surgery Z98.89 ; Pain in right hand M79.641 ; Pain of left hand M79.642 ; Pain in left foot M79.672 ; Pain in right foot M79.671 ; Erectile dysfunction, unspecified erectile dysfunction type N52.9 and Anger R45.4 [facility] [address] [id number] [address] [place] [address] Sep, [facility] [address] [id number] [address] [place] [address] Jul, [facility] [address] [id number] [address] [place] [address] Jun, [facility] [address] [id number] [address] [place] [address] May, [facility] [address] [id number] [address] [place] [address] Apr, [facility] [address] [id number] [address] [place] [address] March, [facility] [address] [id number] [address] [place] [address] Feb, [facility] [address] [id number] [address] [place] [address] Feb, [facility] [address] [id number] [address] [place] [address] Jan, [facility] [address] [id number] [address] [place] [address] Jan, [facility] [address] [id number] [address] [place] [address] Nov, [facility] [address] [id number] [address] [place] [address] Nov, [facility] [address] [id number] [address] [place] [address] Nov, [facility] [address] [id number] [address] [place] [address] Nov, [facility] [address] [id number] [address] [place] [address], [place] [address] Nov, [facility] [address] [id number] [address] [place] [address], [place] [address] Nov, [facility] [address] [id number] [address] [place] [address], [place] [address] Oct, [facility] [address] [id number] [address] [place] [address], [place] [address] Oct, [facility] [address] [id number] [address] [place] [address], [place] [address] Oct, [facility] [address] [id number] [address] [place] [address], [place] [address] Oct, [facility] [address] [id number] [address] [place] [address], [place] [address] Sep, [facility] [address] [id number] [address] [place] [address], [place] [address] Sep, [facility] [address] [id number] [address] [place] [address], [place] [address] Sep, [facility] [address] [id number] [address] [place] [address], [place] [address] Sep, [facility] [address] [id number] [address] [place] [address], [place] [address] Sep, [facility] [address] [id number] [address] [place] [address], [place] [address] 16 Aug, 2014 [facility] [address] [id number] [address] [place] [address], [place] [address] Aug, [facility] [address] [id number] [address] [place] [address], [place] [address] 15 Aug, 2014 [facility] [address] [id number] [address] [place] [address] Aug, [facility] [address] [id number] [address] [place] [address] 15 Aug, 2014 [facility] [address] [id number] [address] [place] [address], [place] [address] 15 Aug, 2014 [facility] [address] [id number] [address] [place] [address] 13 Aug, 2014 [facility] [address] [id number] [address] [place] [address], [place] [address] Aug, [facility] [address] [id number] [address] [place] [address] Aug, [facility] [address] [id number] [address] [place] [address], [place] [address] Aug, [facility] [address] [id number] [address] [place] [address], [place] [address] Aug, [facility] [address] [id number] [address] [place] [address], [place] [address] Jul, [facility] [address] [id number] [address] [place] [address], [place] [address] Jul, [facility] [address] [id number] [address] [place] [address], [place] [address] 18 Jul, 2014 [facility] [address] [id number] [address] [place] [address] Jul, [facility] [address] [id number] [address] [place] [address] Jun, [facility] [address] [id number] [address] [place] [address] Jun, [facility] [address] [id number] [address] [place] [address] Jun, [facility] [address] [id number] [address] [place] [address] Jun, [facility] [address] [id number] [address] [place] [address], [place] [address] Jun, [facility] [address] [id number] [address] [place] [address], [place] [address] Jun, [facility] [address] [id number] [address] [place] [address], [place] [address] May, [facility] [address] [id number] [address] [place] [address], [place] [address] May, [facility] [address] [id number] [address] [place] [address], [place] [address] May, [facility] [address] [id number] [address] [place] [address], [place] [address] May, [facility] [address] [id number] [address] [place] [address], [place] [id number] May, [facility] [address] [id number] [address] [place] [address], [place] [address] May, [facility] [address] [id number] [address] [place] [address], [place] [address] May, [facility] [address] [id number] [address] [place] [address], [place] [address] May, [facility] [address] [id number] [address] [place] [address], [place] [address] May, [facility] [address] [id number] [address] [place] [address], [place] [address] May, [facility] [address] [id number] [address] [place] [address], [place] [address] May, [facility] [address] [id number] [address] [place] [address], [place] [address] May, [facility] [address] [id number] [address] [place] [address], [place] [address] Apr, [facility] [address] [id number] [address] [place] [address], [place] [address] Apr, [facility] [address] [id number] [address] [place] [address], [place] [address] March, [facility] [address] [id number] [facility] [place] [address] March, [facility] [address] [id number] [facility] [place] [address] March, [facility] [address] [id number] [facility] [place] [address] March, [facility] [address] [id number] [address] [place] [address], [place] [address] Feb, [facility] [address] [id number] [address] [place] [address], [place] [address] Feb, [facility] [address] [id number] [address] [place] [address], [place] [address] Jan, [facility] [address] [id number] [address] [place] [address], [place] [address] Jan, [facility] [address] [id number] [address] [place] [address], [place] [address] Jan, [facility] [address] [id number] [address] [place] [address], [place] [address] Jan, [facility] [address] [id number] [address] [place] [address], [place] [address] Dec, [facility] [address] [id number] [address] [place] [address], [place] [address] Dec, [facility] [address] [id number] [address] [place] [address], [place] [address] Nov, [facility] [address] [id number] [address] [place] [address], [place] [address] Nov, [facility] [address] [id number] [address] [place] [address], [place] [address] Nov, [facility] [address] [id number] [address] [place] [address], [place] [address] Nov, [facility] [address] [id number] [address] [place] [address], [place] [address] 10 Oct, 2013 [facility] [address] [id number] [address] [place] [address], [place] [address] 10 Oct, 2013 [facility] [address] [id number] [address] [place] [address], [place] [address] Sep, [facility] [address] [id number] [address] [place] [address], [place] [address] Sep, [facility] [address] [id number] [address] [place] [address], [place] [address] Jul, [facility] [address] [id number] [address] [place] [address], [place] [address] Jul, [facility] [address] [id number] [address] [place] [address], [place] [address] Jul, [facility] [address] [id number] [address] [place] [address], [place] [address] Jun, [facility] [address] [id number] [address] [place] [address], [place] [address] Jun, [facility] [address] [id number] [address] [place] [address], [place] [address] May, [facility] [address] [id number] [address] [place] [address], [place] [address] May, [facility] [address] [id number] [address] [place] [address], [place] [address] May, [facility] [address] [id number] [address] [place] [address], [place] [address] March, [facility] [address] [id number] [address] [place] [address], [place] [address] Jan, [facility] [address] [id number] [address] [place] [address], [place] [address] Jan, [facility] [address] [id number] [address] [place] [address], [place] [phone] Jan, [facility] [address] [id number] [address] [place] [id number] Dec, [facility] [address] [id number] [address] [place] [id number] May, [facility] [address] [id number] [address] [place] [id number] March, [facility] [address] [id number] [address] [place] [id number] Jan, [facility] [address] [id number] [address] [place] [id number] Aug, [facility] [address] [id number] [address] [place] [id number] Aug, [facility] [address] [id number] [address] [place] [id number] Aug, [facility] [address] [id number] [address] [place] [id number] Jun, [facility] [address] [id number] [address] [place] [id number] May, [facility] [address] [id number] [address] [place] [id number] Oct, IMMUNIZATIONS Vaccine Route Administration Date Status TORADOL (IM) 60 MG/2ML (UP TO 15 MG) IM Intramuscular February 17, 2018 Administered SOCIAL HISTORY Never Assessed REASON FOR VISIT Hip pain, per Pawan can have toradol 60 mg IM CBrumbackRN PLAN OF CARE VITAL SIGNS MEDICATIONS Medication Instructions Dosage Frequency Start Date End Date Duration S tatus Neurontin 800 MG Orally 3 times a day 1 tablet 8h 3 0 days Active Viagra 100 MG Orally Once a day as needed 1 tablet as needed Not-Taking Trazodone HCl 150 MG Orally Once a day 1 tablet at bedtime 24h 2017 Not-Taking Norvasc 5 mg Orally Once a day 1 tablet 24h Dec, Active Indomethacin 25 MG Orally Twice a day 1 capsule with food or milk 12h Active Flexeril 10 mg Orally Three times a day 1 tablet as needed 8h March, 30 days Active Citalopram Hydrobromide 20 MG Orally Once a day 1 tablet 24h Feb, 30 day(s) Active Lisinopril 10 mg Orally Once a day 1 tablet 24h Oct, Active RESULTS No Results PROCEDURES Procedure Date Ordered Result Body Site TORADOL (IM) 60 MG/2ML (UP TO 15 MG) February 17, 2018 THER/PROPH/DIAG INJ, SC/IM February 17, 2018 INSTRUCTIONS MEDICATIONS ADMINISTERED No Known Medications [...]
--- OUTSIDE RECORDS SUMMARY | 2020-02-05 11:06 | XMS REPORT ---
Author Author Jelani ESPARZA Organization [facility] Address [address] [place] [address] Care Team Providers Care Supervisor Anodizing Name Role Phone JAYME ESPARZA Unavailable PROBLEMS Type Condition ICD9-CM Code SER96-ZP Code Onset Dates Condition S tatus SNOMED Code Problem Hx of cervical spine surgery Z98.89 A ctive 667778157 Problem Drug-induced erectile dysfunction N52.2 Active 301872571 Problem Anger R45.4 Active 97062518 Problem Gastroesophageal reflux disease with esophagitis K 21.0 Active 554298775 Problem Erectile dysfunction, unspecified erectile dysfunction typ e N52.9 Active 719033936 Problem Candidal dermatitis B37.2 Active 97216306 Problem Psychophysiological insomnia F51.04 A ctive 349446273 Problem Wheezing R06.2 Active 44100761 Problem Anxiety F41.9 Active 56454403 Problem Primary osteoarthritis of left hip M16.12 Active 002902125 Problem Idiopathic peripheral neuropathy G60.9 Active 99634616 Problem Low back pain M54.5 Active 770714 005 Problem Pain in right foot M79.671 Active 4 5630553 Problem Pain in right knee M25.561 Active 3 [id number] Problem Pure hypercholesterolemia E78.00 Acti ve 274011927 Problem Other chronic pain G89.29 Active 8 1997293 Problem Mood disorder F39 Active 648601 05 Problem Anxiety disorder, unspecified F41.9 Active 714476608 Problem Unspecified mood [affective] disorder F39 Active 801620787 Problem Essential hypertension I10 Active 53532700 Problem Mixed hyperlipidemia E78.2 Active 743174901 Problem Other stimulant dependence, 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 [id number] [address] [place] [address] May, Primary osteoarthritis of le ft hip M16.12 ; Pain in left hip M25.552 ; Other acute postprocedural pain G89.18 and Anxiety F41.9 [facility] [address] [id number] [address] [place] [address] May, [facility] [address] [id number] [address] [place] [address] Apr, Pain in right knee M25.561 a nd Mood disorder F39 [facility] [address] [id number] [address] [place] [id number] Apr, [facility] [address] [id number] [address] [place] [id number] March, [facility] [address] [id number] [address] [place] [address] [id number] March, Encounter for dental exam an d cleaning w/o abnormal findings Z01.20 [facility] [address] [id number] [address] [place] [address] [id number] March, Dental examination Z01.20 [facility] [address] [id number] [address] [place] [address] [id number] March, Dental examination Z01.20 [facility] [address] [id number] [address] [place] [id number] March, [facility] [address] [id number] [address] [place] [phone] March, [facility] [address] [id number] [address] [place] [address] Feb, [facility] [address] [id number] [address] [place] [id number] Feb, Primary osteoarthritis of le ft hip M16.12 [facility] [address] [id number] [address] [place] [phone] Feb, Other chronic pain G89.29 an d Pain in left hip M25.552 [facility] [address] [id number] [address] [place] [address] Feb, Acute pain of left hip M25.5 52 [facility] [address] [id number] [address] [place] [address] Feb, Mood disorder F39 and Pain i n right knee M25.561 [facility] [address] [id number] [address] [place] [address] Jan, Other chronic pain G89.29 [facility] [address] [id number] [address] [place] [phone] Jan, Mood disorder F39 [facility] [address] [id number] [address] [place] [address] Jan, Pain in right knee M25.561 [facility] [address] [id number] [address] [place] [phone] Jan, Pain in left hip M25.552 and Other chronic pain G89.29 [facility] [address] [id number] [address] [place] [address] Jan, Acute pain of left hip M25.5 52 [facility] [address] [facility] [id number] [address] [place] [address] Jan, Acute pain of left hip M25.5 52 [facility] [address] [id number] [address] [place] [id number] Jan, Mood disorder F39 and Acute pain of left hip M25.552 [facility] [address] [id number] [address] [place] [phone] Nov, Mood disorder F39 [facility] [address] [facility] [id number] [address] [place] [phone] Oct, Essential hypertension I10 ; Mixed hyperlipidemia E78.2 and Low back pain M54.5 [facility] [id number] [place] [id number] May, [place] [address] [address] Apr, Essential hypertension I10 ; Anger R45.4 ; Mixed hyperlipidemia E78.2 ; Drug-induced erectile dysfunction N52.2 ; Gastroesophageal reflux disease with esophagitis K21.0 ; Pure hypercholesterolemia E78.00 ; Pain in right knee M25.561 ; Psychophysiological insomnia F51.04 and Wheezing R06.2 [place] [address] [address] March, Hx of cervical spine surgery Z98.89 [place] [address] [address] March, [place] [address] [address] Feb, Anxiety associated with depr ession F41.8 [place] [address] [address] Jan, Anxiety associated with depr ession F41.8 [place] [address] [address] Dec, [place] [address] [address] Dec, [place] [address] [address] Dec, Essential hypertension I10 ; Hyperlipemia E78.5 and Erectile dysfunction, unspecified erectile dysfunction type N52.9 [place] [address] [address] Nov, Essential hypertension I10 ; Hx of cervical spine surgery Z98.89 ; Erectile dysfunction, unspecified erectile dysfunction type N52.9 ; Idiopathic peripheral neuropathy G60.9 ; Anger R45.4 ; Anxiety associated with depression F41.8 ; Hyperlipemia E78.5 ; Wheezing R06.2 and Has daytime drowsiness R40.0 [place] [address] [place] [id number] [address] [place] [phone] Nov, [facility] [address] [facility] [id number] [address] [place] [phone] Nov, [facility] [address] [facility] [id number] [address] [place] [phone] Sep, [facility] [address] [place] [id number] [place] [phone] Sep, Acute midline low back pain without sciatica M54.5 [facility] [address] [place] [id number] [address] [place] [address] Sep, Acute bilateral low back ekta n without sciatica M54.5 [facility] [address] [place] [id number] [place] [address] Aug, [facility] [address] [address] Jun, Wheezing R06.2 ; Candidal de rmatitis B37.2 ; Essential hypertension I10 ; Erectile dysfunction, unspecified erectile dysfunction type N52.9 ; Idiopathic peripheral neuropathy G60.9 ; Mixed hyperlipidemia E78.2 and Other stimulant dependence, 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 [facility] [address] [place] [id number] [address] [place] [address] March, Essential hypertension I10 ; Hx of cervical spine surgery Z98.89 ; Idiopathic peripheral neuropathy G60.9 ; Mixed hyperlipidemia E78.2 ; Anger R45.4 ; Drug-induced erectile dysfunction N52.2 and Gastroesophageal reflux disease with esophagitis K21.0 [facility] [address] [place] [id number] [address] [place] [address] Feb, [facility] [address] [address] Dec, Low back pain M54.5 [facility] [address] [place] [id number] [address] [place] [phone] Dec, [facility] [address] [place] [id number] [address] [place] [address] Dec, Unspecified mood [affective] disorder F39 ; Anxiety disorder, unspecified F41.9 ; Other stimulant dependence, 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 and Cannabis dependence, uncomplicated F12.20 [place] [address] [place] [id number] [address] [place] [address] Dec, Essential hypertension I10 ; Hyperlipemia E78.5 ; Erectile dysfunction, unspecified erectile dysfunction type N52.9 ; Anger R45.4 ; Mixed hyperlipidemia E78.2 ; Anxiety associated with depression F41.8 ; Elevated serum creatinine R79.89 ; 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 and Marijuana abuse F12.10 [place] [address] [address] Oct, Essential hypertension I10 ; Idiopathic peripheral neuropathy G60.9 ; Low back pain M54.5 ; Hx of cervical spine surgery Z98.89 ; Erectile dysfunction, unspecified erectile dysfunction type N52.9 ; Anger R45.4 ; Mixed hyperlipidemia E78.2 and Anxiety associated with depression F41.8 [place] [address] [address] Oct, Unspecified mood [affective] disorder F39 and Anxiety disorder, unspecified F41.9 [place] [address] [place] [id number] [address] [place] [address] Oct, Hyperlipemia E78.5 [place] [address] [place] [id number] [address] [place] [address] Oct, Essential hypertension I10 [place] [address] [place] [id number] [address] [place] [address] Oct, [place] [address] [place] [id number] [address] [place] [address] Oct, Essential hypertension I10 ; Idiopathic peripheral neuropathy G60.9 ; Low back pain M54.5 ; Hx of cervical spine surgery Z98.89 ; Pain in right hand M79.641 ; Pain of left hand M79.642 ; Pain in left foot M79.672 ; Pain in right foot M79.671 ; Erectile dysfunction, unspecified erectile dysfunction type N52.9 and Anger R45.4 [facility] [address] [id number] [address] [place] [address] Sep, [facility] [address] [id number] [address] [place] [id number] Jul, [facility] [address] [id number] [address] [place] [id number] Jun, [facility] [address] [id number] [address] [place] [phone] May, [facility] [address] [id number] [address] [place] [phone] Apr, [facility] [address] [id number] [address] [place] [phone] March, [facility] [address] [id number] [address] [place] [phone] Feb, [facility] [address] [id number] [address] [place] [phone] Feb, [facility] [address] [id number] [address] [place] [phone] Jan, [facility] [address] [id number] [address] [place] [id number] Jan, [facility] [address] [id number] [address] [place] [phone] Nov, [facility] [address] [id number] [address] [place] [phone] Nov, [facility] [address] [id number] [address] [place] [phone] Nov, [facility] [address] [id number] [address] [place] [phone] Nov, [facility] [address] [id number] [address] [place] [address], [place] [address] Nov, [facility] [address] [id number] [address] [place] [address], [place] [address] Nov, [facility] [address] [id number] [address] [place] [address], [place] [address] Oct, [facility] [address] [id number] [address] [place] [address], [place] [address] Oct, [facility] [address] [id number] [address] [place] [address], [place] [address] Oct, [facility] [address] [id number] [address] [place] [address], [place] [address] Oct, [facility] [address] [id number] [address] [place] [address], [place] [address] Sep, [facility] [address] [id number] [address] [place] [address], [place] [address] Sep, [facility] [address] [id number] [address] [place] [address], [place] [address] Sep, [facility] [address] [id number] [address] [place] [address], [place] [address] Sep, [facility] [address] [id number] [address] [place] [address], [place] [address] Sep, [facility] [address] [id number] [address] [place] [address], [place] [address] 16 Aug, 2014 [facility] [address] [id number] [address] [place] [address], [place] [id number] 16 Aug, 2014 [facility] [address] [id number] [address] [place] [address], [place] [address] 15 Aug, 2014 [facility] [address] [id number] [address] [place] [address], [place] [address] 15 Aug, 2014 [facility] [address] [id number] [address] [place] [address], [place] [id number] 15 Aug, 2014 [facility] [address] [id number] [address] [place] [address], [place] [id number] 15 Aug, 2014 [facility] [address] [id number] [address] [place] [address], [place] [id number] 13 Aug, 2014 [facility] [address] [id number] [address] [place] [address], [place] [id number] 07 Aug, 2014 [facility] [address] [id number] [address] [place] [address], [place] [address] Aug, [facility] [address] [id number] [address] [place] [address], [place] [id number] Aug, [facility] [address] [id number] [address] [place] [address], [place] [address] Aug, [facility] [address] [id number] [address] [place] [address], [place] [address] Jul, [facility] [address] [id number] [address] [place] [address], [place] [address] Jul, [facility] [address] [id number] [address] [place] [address], [place] [address] Jul, [facility] [address] [id number] [address] [place] [address], [place] [address] Jul, [facility] [address] [id number] [address] [place] [address], [place] [address] Jun, [facility] [address] [id number] [address] [place] [address], [place] [address] Jun, [facility] [address] [id number] [address] [place] [address], [place] [address] Jun, [facility] [address] [id number] [address] [place] [address], [place] [address] Jun, [facility] [address] [id number] [address] [place] [address], [place] [address] Jun, [facility] [address] [id number] [address] [place] [address], [place] [address] Jun, [facility] [address] [id number] [facility] [place] [address] May, [facility] [address] [id number] [address] [place] [address], [place] [address] May, [facility] [address] [id number] [address] [place] [address], [place] [address] May, [facility] [address] [id number] [address] [place] [address], [place] [address] May, [facility] [address] [id number] [address] [place] [address], [place] [id number] May, [facility] [address] [id number] [address] [place] [address], [place] [address] May, [facility] [address] [id number] [address] [place] [address], [place] [address] May, [facility] [address] [id number] [address] [place] [address], [place] [address] May, [facility] [address] [id number] [address] [place] [address], [place] [address] May, [facility] [address] [id number] [address] [place] [address], [place] [address] May, [facility] [address] [id number] [address] [place] [address], [place] [address] May, [facility] [address] [id number] [address] [place] [address], [place] [address] May, [facility] [address] [id number] [address] [place] [address], [place] [address] Apr, [facility] [address] [id number] [address] [place] [address], [place] [address] Apr, [facility] [address] [id number] [address] [place] [address], [place] [address] March, [facility] [address] [id number] [address] [place] [address], [place] [address] March, [facility] [address] [id number] [address] [place] [address], [place] [address] March, [facility] [address] [id number] [address] [place] [address], [place] [address] March, [facility] [address] [id number] [address] [place] [address], [place] [address] Feb, [facility] [address] [id number] [address] [place] [address], [place] [address] Feb, [facility] [address] [id number] [address] [place] [address], [place] [address] Jan, [facility] [address] [id number] [address] [place] [address], [place] [address] Jan, [facility] [address] [id number] [address] [place] [address], [place] [address] Jan, [facility] [address] [id number] [address] [place] [address], [place] [address] Jan, [facility] [address] [id number] [address] [place] [address], [place] [address] Dec, [facility] [address] [id number] [address] [place] [address], [place] [address] Dec, [facility] [address] [id number] [address] [place] [address], [place] [address] Nov, [facility] [address] [id number] [address] [place] [address], [place] [address] Nov, [facility] [address] [id number] [address] [place] [address], [place] [address] Nov, [facility] [address] [id number] [address] [place] [address], [place] [address] Nov, [facility] [address] [id number] [address] [place] [address], [place] [address] Oct, [facility] [address] [id number] [address] [place] [address], [place] [address] Oct, [facility] [address] [id number] [address] [place] [address], [place] [address] Sep, [facility] [address] [id number] [address] [place] [address], [place] [address] Sep, [facility] [address] [id number] [address] [place] [address], [place] [address] Jul, [facility] [address] [id number] [address] [place] [address], [place] [address] Jul, [facility] [address] [id number] [address] [place] [address], [place] [address] Jul, [facility] [address] [id number] [address] [place] [address], [place] [address] Jun, [facility] [address] [id number] [address] [place] [address], [place] [address] Jun, [facility] [address] [id number] [address] [place] [address], [place] [address] May, [facility] [address] [id number] [address] [place] [address], [place] [address] May, [facility] [address] [id number] [address] [place] [address], [place] [address] May, [facility] [address] [id number] [address] [place] [address], [place] [address] March, [facility] [address] [id number] [address] [place] [address], [place] [address] Jan, [facility] [address] [id number] [address] [place] [address], [place] [phone] Jan, [facility] [address] [id number] [address] [place] [address], [place] [id number] Jan, [facility] [address] [id number] [address] [place] [id number] Dec, [facility] [address] [id number] [address] [place] [phone] May, [facility] [address] [id number] [address] [place] [id number] March, [facility] [address] [id number] [address] [place] [phone] Jan, [facility] [address] [id number] [address] [place] [id number] Aug, [facility] [address] [id number] [address] [place] [id number] Aug, [facility] [address] [id number] [address] [place] [phone] Aug, [facility] [address] [id number] [address] [place] [phone] Jun, [facility] [address] [id number] [address] [place] [id number] May, [facility] [address] [id number] [address] [place] [id number] Oct, IMMUNIZATIONS No Known Immunizations SOCIAL HISTORY Never Assessed REASON FOR VISIT Requests return call PLAN OF CARE VITAL SIGNS MEDICATIONS No [...]
--- OUTSIDE RECORDS SUMMARY | 2020-02-05 11:06 | XMS REPORT ---
Author Author Jelani ESPARZA Organization [facility] Address [address] [place] [address] Care Team Providers Care Picture Enlarger Name Role Phone JAYME ESPARZA Unavailable PROBLEMS Type Condition ICD9-CM Code TKL32-DO Code Onset Dates Condition S tatus SNOMED Code Problem Hx of cervical spine surgery Z98.89 A ctive 096195336 Problem Drug-induced erectile dysfunction N52.2 Active 205759796 Problem Anger R45.4 Active 98311188 Problem Gastroesophageal reflux disease with esophagitis K 21.0 Active 574392936 Problem Erectile dysfunction, unspecified erectile dysfunction typ e N52.9 Active 391325684 Problem Candidal dermatitis B37.2 Active 01982015 Problem Psychophysiological insomnia F51.04 A ctive 328175003 Problem Wheezing R06.2 Active 49964066 Problem Anxiety F41.9 Active 27209866 Problem Primary osteoarthritis of left hip M16.12 Active 392491295 Problem Idiopathic peripheral neuropathy G60.9 Active 75189279 Problem Low back pain M54.5 Active 416071 005 Problem Pain in right foot M79.671 Active 4 9702826 Problem Pain in right knee M25.561 Active 3 [id number] Problem Pure hypercholesterolemia E78.00 Acti ve 464042383 Problem Other chronic pain G89.29 Active 8 7805607 Problem Mood disorder F39 Active 399499 05 Problem Anxiety disorder, unspecified F41.9 Active 217099170 Problem Unspecified mood [affective] disorder F39 Active 675005120 Problem Essential hypertension I10 Active 93991181 Problem Mixed hyperlipidemia E78.2 Active 845176160 Problem Other stimulant dependence, 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 Active 128111522 Problem Cannabis dependence, uncomplicated F12.20 Active 73481727 Problem 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 Active 339640902 Problem Marijuana abuse F12.10 Active 3734 4009 ALLERGIES No Information ENCOUNTERS Encounter Location Date Diagnosis [facility] [address] [facility] [id number] [address] [place] [address] May, Primary osteoarthritis of le ft hip M16.12 ; Pain in left hip M25.552 ; Other acute postprocedural pain G89.18 and Anxiety F41.9 [facility] [address] [id number] [address] [place] [address] May, [facility] [address] [id number] [address] [place] [address] Apr, Pain in right knee M25.561 a nd Mood disorder F39 [facility] [address] [id number] [address] [place] [address] Apr, [facility] [address] [id number] [address] [place] [address] [phone] March, [facility] [address] [id number] [address] [place] [address] [phone] March, Encounter for dental exam an d cleaning w/o abnormal findings Z01.20 [facility] [address] [id number] [address] [place] [phone] March, Dental examination Z01.20 [facility] [address] [id number] [address] [place] [phone] March, Dental examination Z01.20 [facility] [address] [id number] [address] [place] [phone] March, [facility] [address] [id number] [address] [place] [address] March, [facility] [address] [id number] [address] [place] [address] Feb, [facility] [address] [id number] [address] [place] [phone] Feb, Primary osteoarthritis of le ft hip M16.12 [facility] [address] [id number] [address] [place] [address] Feb, Other chronic pain G89.29 an d Pain in left hip M25.552 [facility] [address] [id number] [address] [place] [address] Feb, Acute pain of left hip M25.5 52 [facility] [address] [id number] [address] [place] [address] Feb, Mood disorder F39 and Pain i n right knee M25.561 [facility] [address] [id number] [address] [place] [address] Jan, Other chronic pain G89.29 [facility] [address] [id number] [address] [place] [phone] Jan, Mood disorder F39 [facility] [address] [id number] [address] [place] [address] Jan, Pain in right knee M25.561 [facility] [address] [id number] [address] [place] [address] Jan, Pain in left hip M25.552 and Other chronic pain G89.29 [facility] [address] [id number] [address] [place] [phone] Jan, Acute pain of left hip M25.5 52 [facility] [address] [facility] [id number] [address] [place] [address] Jan, Acute pain of left hip M25.5 52 [facility] [address] [id number] [address] [place] [address] Jan, Mood disorder F39 and Acute pain of left hip M25.552 [facility] [address] [id number] [address] [place] [address] Nov, Mood disorder F39 [facility] [address] [facility] [id number] [address] [place] [phone] Oct, Essential hypertension I10 ; Mixed hyperlipidemia E78.2 and Low back pain M54.5 [facility] [address] [id number] [id number] May, [place] [address] [address] Apr, Essential hypertension I10 ; Anger R45.4 ; Mixed hyperlipidemia E78.2 ; Drug-induced erectile dysfunction N52.2 ; Gastroesophageal reflux disease with esophagitis K21.0 ; Pure hypercholesterolemia E78.00 ; Pain in right knee M25.561 ; Psychophysiological insomnia F51.04 and Wheezing R06.2 [place] [address] [address] March, Hx of cervical spine surgery Z98.89 [place] [address] [address] March, [place] [address] [address] Feb, Anxiety associated with depr ession F41.8 [place] [address] [address] Jan, Anxiety associated with depr ession F41.8 [place] [address] [address] Dec, [place] [address] [address] Dec, [place] [address] [address] Dec, Essential hypertension I10 ; Erectile dysfunction, unspecified erectile dysfunction type N52.9 and Hyperlipemia E78.5 [place] [address] [address] Nov, Essential hypertension I10 ; Hx of cervical spine surgery Z98.89 ; Erectile dysfunction, unspecified erectile dysfunction type N52.9 ; Idiopathic peripheral neuropathy G60.9 ; Anger R45.4 ; Anxiety associated with depression F41.8 ; Hyperlipemia E78.5 ; Wheezing R06.2 and Has daytime drowsiness R40.0 [place] [address] [place] [id number] [address] [place] [address] Nov, [facility] [address] [facility] [id number] [address] [place] [phone] Nov, [facility] [address] [facility] [id number] [address] [place] [address] Sep, [facility] [address] [place] [id number] [place] [phone] Sep, Acute midline low back pain without sciatica M54.5 [facility] [address] [place] [id number] [address] [place] [phone] Sep, Acute bilateral low back ekta n without sciatica M54.5 [facility] [address] [place] [id number] [place] [address] Aug, [facility] [address] [address] Jun, Wheezing R06.2 ; Candidal de rmatitis B37.2 ; Essential hypertension I10 ; Erectile dysfunction, unspecified erectile dysfunction type N52.9 ; Idiopathic peripheral neuropathy G60.9 ; Mixed hyperlipidemia E78.2 and Other stimulant dependence, 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 [facility] [address] [place] [id number] [address] [place] [address] March, Essential hypertension I10 ; Hx of cervical spine surgery Z98.89 ; Idiopathic peripheral neuropathy G60.9 ; Mixed hyperlipidemia E78.2 ; Anger R45.4 ; Drug-induced erectile dysfunction N52.2 and Gastroesophageal reflux disease with esophagitis K21.0 [facility] [address] [place] [id number] [address] [place] [phone] Feb, [facility] [address] [address] Dec, Low back pain M54.5 [facility] [address] [place] [id number] [address] [place] [phone] Dec, [facility] [address] [place] [id number] [address] [place] [phone] Dec, Unspecified mood [affective] disorder F39 ; Anxiety disorder, unspecified F41.9 ; Other stimulant dependence, 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 and Cannabis dependence, uncomplicated F12.20 [place] [address] [place] [id number] [address] [place] [address] Dec, Essential hypertension I10 ; Hyperlipemia E78.5 ; Erectile dysfunction, unspecified erectile dysfunction type N52.9 ; Anger R45.4 ; Mixed hyperlipidemia E78.2 ; Anxiety associated with depression F41.8 ; Elevated serum creatinine R79.89 ; 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 and Marijuana abuse F12.10 [place] [address] [address] Oct, Essential hypertension I10 ; Idiopathic peripheral neuropathy G60.9 ; Low back pain M54.5 ; Hx of cervical spine surgery Z98.89 ; Erectile dysfunction, unspecified erectile dysfunction type N52.9 ; Anger R45.4 ; Mixed hyperlipidemia E78.2 and Anxiety associated with depression F41.8 [place] [address] [address] Oct, Unspecified mood [affective] disorder F39 and Anxiety disorder, unspecified F41.9 [place] [address] [place] [id number] [address] [place] [address] Oct, Hyperlipemia E78.5 [place] [address] [place] [id number] [address] [place] [address] Oct, Essential hypertension I10 [place] [address] [place] [id number] [address] [place] [address] Oct, [place] [address] [place] [id number] [address] [place] [address] Oct, Essential hypertension I10 ; Idiopathic peripheral neuropathy G60.9 ; Low back pain M54.5 ; Hx of cervical spine surgery Z98.89 ; Pain in right hand M79.641 ; Pain of left hand M79.642 ; Pain in left foot M79.672 ; Pain in right foot M79.671 ; Erectile dysfunction, unspecified erectile dysfunction type N52.9 and Anger R45.4 [facility] [address] [id number] [address] [place] [phone] Sep, [facility] [address] [id number] [address] [place] [address] Jul, [facility] [address] [id number] [address] [place] [phone] Jun, [facility] [address] [id number] [address] [place] [phone] May, [facility] [address] [id number] [address] [place] [phone] Apr, [facility] [address] [id number] [address] [place] [phone] March, [facility] [address] [id number] [address] [place] [phone] Feb, [facility] [address] [id number] [address] [place] [phone] Feb, [facility] [address] [id number] [address] [place] [phone] Jan, [facility] [address] [id number] [address] [place] [phone] Jan, [facility] [address] [id number] [address] [place] [phone] Nov, [facility] [address] [id number] [address] [place] [phone] Nov, [facility] [address] [id number] [address] [place] [phone] Nov, [facility] [address] [id number] [address] [place] [phone] Nov, [facility] [address] [id number] [address] [place] [address], [place] [address] Nov, [facility] [address] [id number] [address] [place] [address], [place] [address] Nov, [facility] [address] [id number] [address] [place] [address], [place] [address] Oct, [facility] [address] [id number] [address] [place] [address], [place] [address] Oct, [facility] [address] [id number] [address] [place] [address], [place] [address] Oct, [facility] [address] [id number] [address] [place] [address], [place] [address] Oct, [facility] [address] [id number] [address] [place] [address], [place] [address] Sep, [facility] [address] [id number] [address] [place] [address], [place] [address] Sep, [facility] [address] [id number] [address] [place] [address], [place] [address] Sep, [facility] [address] [id number] [address] [place] [address], [place] [address] Sep, [facility] [address] [id number] [address] [place] [address], [place] [address] Sep, [facility] [address] [id number] [address] [place] [address], [place] [address] 16 Aug, 2014 [facility] [address] [id number] [address] [place] [address], [place] [address] 16 Aug, 2014 [facility] [address] [id number] [address] [place] [address], [place] [address] 15 Aug, 2014 [facility] [address] [id number] [address] [place] [address], [place] [address] 15 Aug, 2014 [facility] [address] [id number] [address] [place] [address], [place] [address] 15 Aug, 2014 [facility] [address] [id number] [address] [place] [address], [place] [address] 15 Aug, 2014 [facility] [address] [id number] [address] [place] [address], [place] [address] 13 Aug, 2014 [facility] [address] [id number] [address] [place] [address], [place] [address] 07 Aug, 2014 [facility] [address] [id number] [address] [place] [address], [place] [address] Aug, [facility] [address] [id number] [address] [place] [address], [place] [address] Aug, [facility] [address] [id number] [address] [place] [address], [place] [address] Aug, [facility] [address] [id number] [address] [place] [address], [place] [address] Jul, [facility] [address] [id number] [address] [place] [address], [place] [address] Jul, [facility] [address] [id number] [address] [place] [address], [place] [address] Jul, [facility] [address] [id number] [address] [place] [address], [place] [address] Jul, [facility] [address] [id number] [address] [place] [address], [place] [address] Jun, [facility] [address] [id number] [address] [place] [address], [place] [address] Jun, [facility] [address] [id number] [address] [place] [address], [place] [address] Jun, [facility] [address] [id number] [address] [place] [address], [place] [address] Jun, [facility] [address] [id number] [address] [place] [address], [place] [address] Jun, [facility] [address] [id number] [address] [place] [address], [place] [address] Jun, [facility] [address] [id number] [facility] [place] [address] May, [facility] [address] [id number] [address] [place] [address], [place] [address] May, [facility] [address] [id number] [address] [place] [address], [place] [address] May, [facility] [address] [id number] [address] [place] [address], [place] [address] May, [facility] [address] [id number] [address] [place] [address], [place] [id number] May, [facility] [address] [id number] [address] [place] [address], [place] [address] May, [facility] [address] [id number] [address] [place] [address], [place] [address] May, [facility] [address] [id number] [address] [place] [address], [place] [address] May, [facility] [address] [id number] [address] [place] [address], [place] [address] May, [facility] [address] [id number] [address] [place] [address], [place] [address] May, [facility] [address] [id number] [address] [place] [address], [place] [address] May, [facility] [address] [id number] [address] [place] [address], [place] [address] May, [facility] [address] [id number] [address] [place] [address], [place] [address] Apr, [facility] [address] [id number] [address] [place] [address], [place] [address] Apr, [facility] [address] [id number] [address] [place] [address], [place] [address] March, [facility] [address] [id number] [address] [place] [address], [place] [address] March, [facility] [address] [id number] [address] [place] [address], [place] [address] March, [facility] [address] [id number] [address] [place] [address], [place] [address] March, [facility] [address] [id number] [address] [place] [address], [place] [address] Feb, [facility] [address] [id number] [address] [place] [address], [place] [address] Feb, [facility] [address] [id number] [address] [place] [address], [place] [address] Jan, [facility] [address] [id number] [address] [place] [address], [place] [address] Jan, [facility] [address] [id number] [address] [place] [address], [place] [address] Jan, [facility] [address] [id number] [address] [place] [address], [place] [address] Jan, [facility] [address] [id number] [address] [place] [address], [place] [address] Dec, [facility] [address] [id number] [address] [place] [address], [place] [address] Dec, [facility] [address] [id number] [address] [place] [address], [place] [address] Nov, [facility] [address] [id number] [address] [place] [address], [place] [address] Nov, [facility] [address] [id number] [address] [place] [address], [place] [address] Nov, [facility] [address] [id number] [address] [place] [address], [place] [address] Nov, [facility] [address] [id number] [address] [place] [address], [place] [address] Oct, [facility] [address] [id number] [address] [place] [address], [place] [address] Oct, [facility] [address] [id number] [address] [place] [address], [place] [address] Sep, [facility] [address] [id number] [address] [place] [address], [place] [address] Sep, [facility] [address] [id number] [address] [place] [address], [place] [address] Jul, [facility] [address] [id number] [address] [place] [address], [place] [address] Jul, [facility] [address] [id number] [address] [place] [address], [place] [address] Jul, [facility] [address] [id number] [address] [place] [address], [place] [address] Jun, [facility] [address] [id number] [address] [place] [address], [place] [address] Jun, [facility] [address] [id number] [address] [place] [address], [place] [address] May, [facility] [address] [id number] [address] [place] [address], [place] [address] May, [facility] [address] [id number] [address] [place] [address], [place] [address] May, [facility] [address] [id number] [address] [place] [address], [place] [phone] March, [facility] [address] [id number] [address] [place] [address], [place] [phone] Jan, [facility] [address] [id number] [address] [place] [address], [place] [phone] Jan, [facility] [address] [id number] [address] [place] [address], [place] [phone] Jan, [facility] [address] [id number] [address] [place] [phone] Dec, [facility] [address] [id number] [address] [place] [phone] May, [facility] [address] [id number] [address] [place] [phone] March, [facility] [address] [id number] [address] [place] [phone] Jan, [facility] [address] [id number] [address] [place] [phone] Aug, [facility] [address] [id number] [address] [place] [phone] Aug, [facility] [address] [id number] [address] [place] [phone] Aug, [facility] [address] [id number] [address] [place] [phone] Jun, [facility] [address] [id number] [address] [place] [phone] May, [facility] [address] [id number] [address] [place] [phone] Oct, IMMUNIZATIONS No Known Immunizations SOCIAL HISTORY Never Assessed REASON FOR VISIT pain medication PLAN OF CARE VITAL SIGNS MEDICATIONS Medication [...] History surgery Hospitalization History left axilla abcess, hypokalemia-[facility] 05/29/17
--- OUTSIDE RECORDS SUMMARY | 2020-02-05 11:07 | XMS REPORT ---
Author Author Jelani ESPARZA Organization [facility] Address [address] [place] [address] Care Team Providers Care Head Of Transport Logistics Name Role Phone JAYME ESPARZA Unavailable PROBLEMS Type Condition ICD9-CM Code OBA72-FD Code Onset Dates Condition S tatus SNOMED Code Problem Hx of cervical spine surgery Z98.89 A ctive 988223368 Problem Drug-induced erectile dysfunction N52.2 Active 017246042 Problem Anger R45.4 Active 30519616 Problem Gastroesophageal reflux disease with esophagitis K 21.0 Active 226927156 Problem Erectile dysfunction, unspecified erectile dysfunction typ e N52.9 Active 495427059 Problem Candidal dermatitis B37.2 Active 22424009 Problem Psychophysiological insomnia F51.04 A ctive 447024788 Problem Wheezing R06.2 Active 07105262 Problem Anxiety F41.9 Active 84263899 Problem Primary osteoarthritis of left hip M16.12 Active 429172792 Problem Idiopathic peripheral neuropathy G60.9 Active 05123696 Problem Low back pain M54.5 Active 903097 005 Problem Pain in right foot M79.671 Active 4 7886204 Problem Pain in right knee M25.561 Active 3 31272166951271 Problem Pure hypercholesterolemia E78.00 Acti ve 636451466 Problem Other chronic pain G89.29 Active 8 1316241 Problem Mood disorder F39 Active 548898 05 Problem Anxiety disorder, unspecified F41.9 Active 384317222 Problem Unspecified mood [affective] disorder F39 Active 270259890 Problem Essential hypertension I10 Active 04721669 Problem Mixed hyperlipidemia E78.2 Active 195692039 Problem Other stimulant dependence, 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 [address] [facility] [id number] [address] [place] [address] May, Primary osteoarthritis of le ft hip M16.12 ; Pain in left hip M25.552 ; Other acute postprocedural pain G89.[address] [facility] [address] [id number] [address] [place] [address] May, [facility] [address] [id number] [address] [place] [address] Apr, Pain in right knee M25.561 a nd Mood disorder F39 [facility] [address] [id number] [address] [place] [address] Apr, [facility] [address] [id number] [address] [place] [id number] March, [facility] [address] [id number] [address] [place] [id number] March, Encounter for dental exam an d cleaning w/o abnormal findings Z01.20 [facility] [address] [id number] [address] [place] [id number] March, Dental examination Z01.20 [facility] [address] [id number] [address] [place] [id number] March, Dental examination Z01.20 [facility] [address] [id number] [address] [place] [address] March, [facility] [address] [id number] [address] [place] [address] March, [facility] [address] [id number] [address] [place] [address] Feb, [facility] [address] [id number] [address] [place] [address] Feb, Primary osteoarthritis of le ft hip M16.12 [facility] [address] [id number] [address] [place] [address] Feb, Other chronic pain G89.29 an d Pain in left hip M25.552 [facility] [address] [id number] [address] [place] [address] Feb, Acute pain of left hip M25.[address] [facility] [address] [id number] [address] [place] [address] Feb, Mood disorder F39 and Pain i n right knee M25.561 [facility] [address] [id number] [address] [place] [address] Jan, Other chronic pain G89.29 [facility] [address] [id number] [address] [place] [address] Jan, Mood disorder F39 [facility] [address] [id number] [address] [place] [address] Jan, Pain in right knee M25.561 [facility] [address] [id number] [address] [place] [address] Jan, Pain in left hip M25.552 and Other chronic pain G89.29 [facility] [address] [id number] [address] [place] [address] Jan, Acute pain of left hip M25.[address] [facility] [address] [facility] [id number] [address] [place] [address] Jan, Acute pain of left hip M25.[address] [facility] [address] [id number] [address] [place] [address] Jan, Mood disorder F39 and Acute pain of left hip M25.552 [facility] [address] [id number] [address] [place] [address] Nov, Mood disorder F39 [facility] [address] [facility] [id number] [address] [place] [address] Oct, Essential hypertension I10 ; Mixed hyperlipidemia E78.2 and Low back pain M54.5 [facility] [id number] [id number] May, [place] [address] [address] Apr, Essential hypertension I10 ; Anger R45.4 ; Mixed hyperlipidemia E78.2 ; Drug-induced erectile dysfunction N52.2 ; Gastroesophageal reflux disease with esophagitis K21.0 ; Pure hypercholesterolemia E78.00 ; Pain in right knee M25.561 ; Psychophysiological insomnia F51.04 and Wheezing R06.2 [place] [address] [address] March, Hx of cervical spine surgery Z98.89 [place] [address] [address] March, [place] [address] [address] Feb, Anxiety associated with depr ession F41.8 [place] [address] [address] Jan, Anxiety associated with depr ession F41.8 [place] [address] [address] Dec, [place] [address] [address] Dec, [place] [address] [address] Dec, Essential hypertension I10 ; Erectile dysfunction, unspecified erectile dysfunction type N52.9 and Hyperlipemia E78.5 [place] [address] [address] Nov, Essential hypertension I10 ; Hx of cervical spine surgery Z98.89 ; Erectile dysfunction, unspecified erectile dysfunction type N52.9 ; Idiopathic peripheral neuropathy G60.9 ; Anger R45.4 ; Anxiety associated with depression F41.8 ; Hyperlipemia E78.5 ; Wheezing R06.2 and Has daytime drowsiness R40.0 [place] [address] [address] [place] [id number] [address] [place] [address] Nov, [facility] [address] [facility] [id number] [address] [place] [address] Nov, [facility] [address] [facility] [id number] [address] [place] [address] Sep, [facility] [address] [place] [id number] [place] [address] Sep, Acute midline low back pain without sciatica M54.5 [facility] [address] [place] [id number] [address] [place] [address] Sep, Acute bilateral low back ekta n without sciatica M54.5 [facility] [address] [place] [id number] [place] [phone] Aug, 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 [address] [place] [id number] [address] [place] [address] March, Essential hypertension I10 ; Hx of cervical spine surgery Z98.89 ; Idiopathic peripheral neuropathy G60.9 ; Mixed hyperlipidemia E78.2 ; Anger R45.4 ; Drug-induced erectile dysfunction N52.2 and Gastroesophageal reflux disease with esophagitis K21.0 [facility] [address] [place] [id number] [address] [place] [address] Feb, [facility] [address] [address] Dec, Low back pain M54.5 [facility] [address] [place] [id number] [address] [place] [address] Dec, 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 and Cannabis dependence, uncomplicated F12.20 [place] [address] [address] [place] [id number] [address] [place] [address] Dec, Essential hypertension I10 ; Hyperlipemia E78.5 ; Erectile dysfunction, unspecified erectile dysfunction type N52.9 ; Anger R45.4 ; Mixed hyperlipidemia E78.2 ; Anxiety associated with depression F41.8 ; Elevated serum creatinine R79.89 ; 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 and Marijuana abuse F12.10 [place] [address] [address] Oct, Essential hypertension I10 ; Idiopathic peripheral neuropathy G60.9 ; Low back pain M54.5 ; Hx of cervical spine surgery Z98.89 ; Erectile dysfunction, unspecified erectile dysfunction type N52.9 ; Anger R45.4 ; Mixed hyperlipidemia E78.2 and Anxiety associated with depression F41.8 [place] [address] [address] Oct, Unspecified mood [affective] disorder F39 and Anxiety disorder, unspecified F41.9 [place] [address] [address] [place] [id number] [address] [place] [address] Oct, Hyperlipemia E78.5 [place] [address] [address] [place] [id number] [address] [place] [address] Oct, Essential hypertension I10 [place] [address] [place] [id number] [address] [place] [address] Oct, [place] [address] [address] [place] [id number] [address] [place] [address] Oct, Essential hypertension I10 ; Idiopathic peripheral neuropathy G60.9 ; Low back pain M54.5 ; Hx of cervical spine surgery Z98.89 ; Pain in right hand M79.641 ; Pain of left hand M79.642 ; Pain in left foot M79.672 ; Pain in right foot M79.671 ; Erectile dysfunction, unspecified erectile dysfunction type N52.9 and Anger R45.4 [facility] [address] [id number] [address] [place] [address] Sep, [facility] [address] [id number] [address] [place] [address] Jul, [facility] [address] [id number] [address] [place] [address] Jun, [facility] [address] [id number] [address] [place] [address] May, [facility] [address] [id number] [address] [place] [address] Apr, [facility] [address] [id number] [address] [place] [address] March, [facility] [address] [id number] [address] [place] [address] Feb, [facility] [address] [id number] [address] [place] [address] Feb, [facility] [address] [id number] [address] [place] [address] Jan, [facility] [address] [id number] [address] [place] [address] Jan, [facility] [address] [id number] [address] [place] [address] Nov, [facility] [address] [id number] [address] [place] [address] Nov, [facility] [address] [id number] [address] [place] [address] Nov, [facility] [address] [id number] [address] [place] [address] Nov, [facility] [address] [id number] [address] [place] [address], [place] [address] Nov, [facility] [address] [id number] [address] [place] [address], [place] [address] Nov, [facility] [address] [id number] [address] [place] [address], [place] [address] Oct, [facility] [address] [id number] [address] [place] [address], [place] [address] Oct, [facility] [address] [id number] [address] [place] [address], [place] [address] Oct, [facility] [address] [id number] [address] [place] [address], [place] [address] Oct, [facility] [address] [id number] [address] [place] [address], [place] [address] Sep, [facility] [address] [id number] [address] [place] [address], [place] [address] Sep, [facility] [address] [id number] [address] [place] [address], [place] [address] Sep, [facility] [address] [id number] [address] [place] [address], [place] [address] Sep, [facility] [address] [id number] [address] [place] [address], [place] [address] Sep, [facility] [address] [id number] [address] [place] [address], [place] [address] 16 Aug, 2014 [facility] [address] [id number] [address] [place] [address], [place] [address] 16 Aug, 2014 [facility] [address] [id number] [address] [place] [address], [place] [address] 15 Aug, 2014 [facility] [address] [id number] [address] [place] [address], [place] [address] 15 Aug, 2014 [facility] [address] [id number] [address] [place] [address], [place] [address] 15 Aug, 2014 [facility] [address] [id number] [address] [place] [address], [place] [address] 15 Aug, 2014 [facility] [address] [id number] [address] [place] [address], [place] [address] 13 Aug, 2014 [facility] [address] [id number] [address] [place] [address], [place] [address] 07 Aug, 2014 [facility] [address] [id number] [address] [place] [address], [place] [address] Aug, [facility] [address] [id number] [address] [place] [address], [place] [address] Aug, [facility] [address] [id number] [address] [place] [address], [place] [address] Aug, [facility] [address] [id number] [address] [place] [address], [place] [address] Jul, [facility] [address] [id number] [address] [place] [address], [place] [address] Jul, [facility] [address] [id number] [address] [place] [address], [place] [address] Jul, [facility] [address] [id number] [address] [place] [address], [place] [address] Jul, [facility] [address] [id number] [address] [place] [address], [place] [address] Jun, [facility] [address] [id number] [address] [place] [address], [place] [address] Jun, [facility] [address] [id number] [address] [place] [address], [place] [address] Jun, [facility] [address] [id number] [address] [place] [address], [place] [address] Jun, [facility] [address] [id number] [address] [place] [address], [place] [address] Jun, [facility] [address] [id number] [address] [place] [address], [place] [address] Jun, [facility] [address] [id number] [facility] [place] [address] May, [facility] [address] [id number] [address] [place] [address], [place] [address] May, [facility] [address] [id number] [address] [place] [address], [place] [address] May, [facility] [address] [id number] [address] [place] [address], [place] [address] May, [facility] [address] [id number] [address] [place] [address], [place] [id number] May, [facility] [address] [id number] [address] [place] [address], [place] [address] May, [facility] [address] [id number] [address] [place] [address], [place] [address] May, [facility] [address] [id number] [address] [place] [address], [place] [address] May, [facility] [address] [id number] [address] [place] [address], [place] [address] May, [facility] [address] [id number] [address] [place] [address], [place] [address] May, [facility] [address] [id number] [address] [place] [address], [place] [address] May, [facility] [address] [id number] [address] [place] [address], [place] [address] May, [facility] [address] [id number] [address] [place] [address], [place] [address] Apr, [facility] [address] [id number] [address] [place] [address], [place] [address] Apr, [facility] [address] [id number] [address] [place] [address], [place] [address] March, [facility] [address] [id number] [address] [place] [address], [place] [address] March, [facility] [address] [id number] [address] [place] [address], [place] [address] March, [facility] [address] [id number] [address] [place] [address], [place] [address] March, [facility] [address] [id number] [address] [place] [address], [place] [address] Feb, [facility] [address] [id number] [address] [place] [address], [place] [address] Feb, [facility] [address] [id number] [address] [place] [address], [place] [address] Jan, [facility] [address] [id number] [address] [place] [address], [place] [address] Jan, [facility] [address] [id number] [address] [place] [address], [place] [address] Jan, [facility] [address] [id number] [address] [place] [address], [place] [address] Jan, [facility] [address] [id number] [address] [place] [address], [place] [address] Dec, [facility] [address] [id number] [address] [place] [address], [place] [address] Dec, [facility] [address] [id number] [address] [place] [address], [place] [address] Nov, [facility] [address] [id number] [address] [place] [address], [place] [address] Nov, [facility] [address] [id number] [address] [place] [address], [place] [address] Nov, [facility] [address] [id number] [address] [place] [address], [place] [address] Nov, [facility] [address] [id number] [address] [place] [address], [place] [address] Oct, [facility] [address] [id number] [address] [place] [address], [place] [address] Oct, [facility] [address] [id number] [address] [place] [address], [place] [address] Sep, [facility] [address] [id number] [address] [place] [address], [place] [address] Sep, [facility] [address] [id number] [address] [place] [address], [place] [address] Jul, [facility] [address] [id number] [address] [place] [address], [place] [address] Jul, [facility] [address] [id number] [address] [place] [address], [place] [address] Jul, [facility] [address] [id number] [address] [place] [address], [place] [address] Jun, [facility] [address] [id number] [address] [place] [address], [place] [address] Jun, [facility] [address] [id number] [address] [place] [address], [place] [address] May, [facility] [address] [id number] [address] [place] [address], [place] [address] May, [facility] [address] [id number] [address] [place] [address], [place] [address] May, [facility] [address] [id number] [address] [place] [address], [place] [address] March, [facility] [address] [id number] [address] [place] [address], [place] [address] Jan, [facility] [address] [id number] [address] [place] [address], [place] [address] Jan, [facility] [address] [id number] [address] [place] [address], [place] [id number] Jan, [facility] [address] [id number] [address] [place] [phone] Dec, [facility] [address] [id number] [address] [place] [phone] May, [facility] [address] [id number] [address] [place] [phone] March, [facility] [address] [id number] [address] [place] [id number] Jan, [facility] [address] [id number] [address] [place] [id number] Aug, [facility] [address] [id number] [address] [place] [id number] Aug, [facility] [address] [id number] [address] [place] [phone] Aug, [facility] [address] [id number] [address] [place] [id number] Jun, [facility] [address] [id number] [address] [place] [phone] May, [facility] [address] [id number] [address] [place] [id number] Oct, IMMUNIZATIONS No Known Immunizations SOCIAL HISTORY Never Assessed REASON FOR VISIT Miki Referral PLAN OF CARE VITAL SIGNS MEDICATIONS Medication Instructions Dosage Frequency Start Date End Date Duration S tatus Neurontin 300 MG Orally 3 times a day 1 capsule 8h Active RESULTS No Results PROCEDURES No Known [...]
--- OUTSIDE RECORDS SUMMARY | 2020-02-05 11:07 | XMS REPORT ---
Author Author Jelani ESPARZA Organization [facility] Address [address] [place] [address] Care Team Providers Care Buggy Ladle Tender Name Role Phone ISAIAS JAYME Unavailable PROBLEMS Type Condition ICD9-CM Code [id number] Code Onset Dates Condition S tatus SNOMED Code Problem Gastroesophageal reflux disease with esophagitis K 21.0 Active 271989786 Problem Wheezing R06.2 Active 54021962 Problem Candidal dermatitis B37.2 Active 58711799 Problem Primary osteoarthritis of left hip M16.12 Active 714317503 Problem Erectile dysfunction, unspecified erectile dysfunction typ e N52.9 Active 524796631 Problem Other chronic pain G89.29 Active 8 3207656 Problem Anger R45.4 Active 44136957 Problem Low back pain M54.5 Active 056914 005 Problem Pain in right knee M25.561 Active 3 [id number] Problem Pure hypercholesterolemia E78.00 Acti ve 604278846 Problem Mood disorder F39 Active 101502 05 Problem Psychophysiological insomnia F51.04 A ctive 737375224 Problem Mixed hyperlipidemia E78.2 Active 200690942 Problem Anxiety disorder, unspecified F41.9 Active 690884432 Problem Idiopathic peripheral neuropathy G60.9 Active 50059083 Problem Essential hypertension I10 Active 23408550 Problem Marijuana abuse F12.10 Active 3734 4009 Problem Other stimulant dependence, 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 Active 535085679 Problem Hx of cervical spine surgery Z98.89 A ctive 717734840 Problem Unspecified mood [affective] disorder F39 Active 255633081 Problem Cannabis dependence, uncomplicated F12.20 Active 92748130 Problem Pain in right foot M79.671 Active 4 2171329 Problem 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 Active 519394949 Problem Drug-induced erectile dysfunction N52.2 Active 691351810 ALLERGIES No Information ENCOUNTERS Encounter Location Date Diagnosis [facility] [address] [facility] [id number] [place] [address] May, [facility] [address] [id number] [address] [place] [address] May, [facility] [address] [id number] [address] [place] [address] Apr, Pain in right knee M25.561 a nd Mood disorder F39 [facility] [address] [id number] [address] [place] [address] Apr, [facility] [address] [id number] [address] [place] [address] [id number] March, [facility] [address] [id number] [place] [address] [id number] March, Encounter for dental exam an d cleaning w/o abnormal findings Z01.20 [facility] [address] [id number] [address] [place] [address] [id number] March, Dental examination Z01.20 [facility] [id number] [place] [address] [id number] March, Dental examination Z01.20 [facility] [address] [id number] [address] [place] [address] March, [facility] [address] [id number] [address] [place] [address] March, [facility] [address] [id number] [address] [place] [address] Feb, [facility] [address] [id number] [address] [place] [address] Feb, Primary osteoarthritis of le ft hip M16.12 [facility] [address] [id number] [address] [place] [address] Feb, Other chronic pain G89.29 an d Pain in left hip M25.552 [facility] [address] [id number] [address] [place] [address] Feb, Acute pain of left hip M25.5 52 [facility] [address] [id number] [address] [place] [address] Feb, Mood disorder F39 and Pain i n right knee M25.561 [facility] [address] [id number] [address] [place] [address] Jan, Other chronic pain G89.29 [facility] [address] [id number] [address] [place] [address] Jan, Mood disorder F39 [facility] [address] [id number] [address] [place] [address] Jan, Pain in right knee M25.561 [place] [address] [facility] [id number] [address] [place] [address] Jan, Pain in left hip M25.552 and Other chronic pain G89.29 [place] [address] [facility] [id number] [address] [place] [address] Jan, Acute pain of left hip M25.5 52 [facility] [address] [facility] [id number] [address] [place] [address] Jan, Acute pain of left hip M25.5 52 [facility] [address] [facility] [id number] [address] [place] [address] Jan, Mood disorder F39 and Acute pain of left hip M25.552 [facility] [address] [facility] [id number] [address] [place] [address] Nov, Mood disorder F39 [facility] [address] [id number] [address] [place] [address] Oct, Essential hypertension I10 ; Mixed hyperlipidemia E78.2 and Low back pain M54.5 [facility] [id number] [id number] May, [facility] [address] [facility] [id number] [address] [place] [address] Apr, Essential hypertension I10 ; Anger R45.4 ; Mixed hyperlipidemia E78.2 ; Drug-induced erectile dysfunction N52.2 ; Gastroesophageal reflux disease with esophagitis K21.0 ; Pure hypercholesterolemia E78.00 ; Pain in right knee M25.561 ; Psychophysiological insomnia F51.04 and Wheezing R06.2 [place] [address] [address] March, Hx of cervical spine surgery Z98.89 [place] [address] [address] March, [place] [address] [address] Feb, Anxiety associated with depr ession F41.8 [place] [address] [address] Jan, Anxiety associated with depr ession F41.8 [place] [address] [address] Dec, [place] [address] [address] Dec, [place] [address] [address] Dec, Essential hypertension I10 ; Erectile dysfunction, unspecified erectile dysfunction type N52.9 and Hyperlipemia E78.5 [place] [address] [address] Nov, Essential hypertension I10 ; Hx of cervical spine surgery Z98.89 ; Erectile dysfunction, unspecified erectile dysfunction type N52.9 ; Idiopathic peripheral neuropathy G60.9 ; Anger R45.4 ; Anxiety associated with depression F41.8 ; Hyperlipemia E78.5 ; Wheezing R06.2 and Has daytime drowsiness R40.0 [place] [address] [address] Nov, [place] [address] [address] Nov, [facility] [address] [place] [id number] [address] [place] [address] Sep, [facility] [address] [place] [id number] [address] [place] [address] Sep, Acute midline low back pain without sciatica M54.5 [facility] [address] [place] [id number] [address] [place] [address] 10 Sep, 2016 Acute bilateral low back ekta n without sciatica M54.5 [facility] [address] [place] [id number] [address] [place] [address] Aug, [facility] [address] [place] [id number] [place] [address] Jun, Wheezing R06.2 ; Candidal de rmatitis B37.2 ; Essential hypertension I10 ; Erectile dysfunction, unspecified erectile dysfunction type N52.9 ; Idiopathic peripheral neuropathy G60.9 ; Mixed hyperlipidemia E78.2 and Other stimulant dependence, 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 [place] [address] [address] March, Essential hypertension I10 ; Hx of cervical spine surgery Z98.89 ; Idiopathic peripheral neuropathy G60.9 ; Mixed hyperlipidemia E78.2 ; Anger R45.4 ; Drug-induced erectile dysfunction N52.2 and Gastroesophageal reflux disease with esophagitis K21.0 [facility] [address] [place] [id number] [address] [place] [address] Feb, [facility] [address] [place] [id number] [address] [place] [address] Dec, Low back pain M54.5 [facility] [address] [place] [id number] [address] [place] [address] Dec, [facility] [address] [place] [id number] [address] [place] [address] 09 Dec, 2015 Unspecified mood [affective] disorder F39 ; Anxiety disorder, unspecified F41.9 ; Other stimulant dependence, 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 and Cannabis dependence, uncomplicated F12.[address] [address] Dec, Essential hypertension I10 ; Hyperlipemia E78.5 ; Erectile dysfunction, unspecified erectile dysfunction type N52.9 ; Anger R45.4 ; Mixed hyperlipidemia E78.2 ; Anxiety associated with depression F41.8 ; Elevated serum creatinine R79.89 ; 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 and Marijuana abuse F12.10 [place] [address] [address] Oct, Essential hypertension I10 ; Idiopathic peripheral neuropathy G60.9 ; Low back pain M54.5 ; Hx of cervical spine surgery Z98.89 ; Erectile dysfunction, unspecified erectile dysfunction type N52.9 ; Anger R45.4 ; Mixed hyperlipidemia E78.2 and Anxiety associated with depression F41.[address] [address] Oct, Unspecified mood [affective] disorder F39 and Anxiety disorder, unspecified F41.[address] [address] Oct, Hyperlipemia E78.[address] [address] Oct, Essential hypertension I10 [address] [address] Oct, [address] [address] Oct, Essential hypertension I10 ; Idiopathic peripheral neuropathy G60.9 ; Low back pain M54.5 ; Hx of cervical spine surgery Z98.89 ; Pain in right hand M79.641 ; Pain of left hand M79.642 ; Pain in left foot M79.672 ; Pain in right foot M79.671 ; Erectile dysfunction, unspecified erectile dysfunction type N52.9 and Anger R45.4 [facility] [address] [id number] [address] [place] [address], [place] [address] Sep, [facility] [address] [id number] [address] [place] [address], [place] [address] Jul, [facility] [address] [id number] [address] [place] [address], [place] [address] Jun, [facility] [address] [id number] [address] [place] [address], [place] [address] May, [facility] [address] [id number] [address] [place] [address], [place] [address] Apr, [facility] [address] [id number] [address] [place] [address], [place] [address] March, [facility] [address] [id number] [address] [place] [address], [place] [address] Feb, [facility] [address] [id number] [address] [place] [address], [place] [address] Feb, [facility] [address] [id number] [address] [place] [address], [place] [address] Jan, [facility] [address] [id number] [address] [place] [address], [place] [address] Jan, [facility] [address] [id number] [address] [place] [address], [place] [address] Nov, [facility] [address] [id number] [address] [place] [address], [place] [address] Nov, [facility] [address] [id number] [address] [place] [address], [place] [address] Nov, [facility] [address] [id number] [address] [place] [address], [place] [address] Nov, [facility] [address] [id number] [address] [place] [address], [place] [address] Nov, [facility] [address] [id number] [address] [place] [address], [place] [address] Nov, [facility] [address] [id number] [address] [place] [address], [place] [address] Oct, [facility] [address] [id number] [address] [place] [address], [place] [address] Oct, [facility] [address] [id number] [address] [place] [address], [place] [address] Oct, [facility] [address] [id number] [address] [place] [address], [place] [address] Oct, [facility] [address] [id number] [address] [place] [address], [place] [address] Sep, [facility] [address] [id number] [address] [place] [address], [place] [address] Sep, [facility] [address] [id number] [address] [place] [address], [place] [address] Sep, [facility] [address] [id number] [address] [place] [address], [place] [address] Sep, [facility] [address] [id number] [address] [place] [address], [place] [address] Sep, [facility] [address] [id number] [address] [place] [address], [place] [address] 16 Aug, 2014 [facility] [address] [id number] [address] [place] [address], [place] [address] 16 Aug, 2014 [facility] [address] [id number] [address] [place] [address] 15 Aug, 2014 [facility] [address] [id number] [address] [place] [address], [place] [address] 15 Aug, 2014 [facility] [address] [id number] [address] [place] [address], [place] [address] 15 Aug, 2014 [facility] [address] [id number] [address] [place] [address], [place] [address] 15 Aug, 2014 [facility] [address] [id number] [address] [place] [address], [place] [address] 13 Aug, 2014 [facility] [address] [id number] [address] [place] [address], [place] [address] 07 Aug, 2014 [facility] [address] [id number] [address] [place] [address], [place] [address] Aug, [facility] [address] [id number] [address] [place] [address], [place] [address] Aug, [facility] [address] [id number] [address] [place] [address], [place] [address] Aug, [facility] [address] [id number] [address] [place] [address], [place] [address] Jul, [facility] [address] [id number] [address] [place] [address], [place] [address] Jul, [facility] [address] [id number] [address] [place] [address], [place] [address] Jul, [facility] [address] [id number] [address] [place] [address], [place] [address] Jul, [facility] [address] [id number] [address] [place] [address], [place] [address] Jun, [facility] [address] [id number] [address] [place] [address], [place] [address] Jun, [facility] [address] [id number] [address] [place] [address], [place] [address] Jun, [facility] [address] [id number] [address] [place] [address], [place] [address] Jun, [facility] [address] [id number] [address] [place] [address], [place] [address] Jun, [facility] [address] [id number] [address] [place] [address], [place] [address] Jun, [facility] [address] [id number] [address] [place] [address], [place] [address] May, [facility] [address] [id number] [address] [place] [address], [place] [address] May, [facility] [address] [id number] [address] [place] [address], [place] [address] May, [facility] [address] [id number] [address] [place] [address], [place] [address] May, [facility] [address] [id number] [address] [place] [address], [place] [id number] May, [facility] [address] [id number] [address] [place] [address], [place] [address] May, [facility] [address] [id number] [address] [place] [address], [place] [address] May, [facility] [address] [id number] [address] [place] [address], [place] [address] May, [facility] [address] [id number] [address] [place] [address], [place] [address] May, [facility] [address] [id number] [address] [place] [address], [place] [address] May, [facility] [address] [id number] [address] [place] [address], [place] [address] May, [facility] [address] [id number] [address] [place] [address], [place] [address] May, [facility] [address] [id number] [address] [place] [address], [place] [address] Apr, [facility] [address] [id number] [address] [place] [address], [place] [address] Apr, [facility] [address] [id number] [address] [place] [address], [place] [address] March, [facility] [address] [id number] [address] [place] [address], [place] [address] March, [facility] [address] [id number] [address] [place] [address], [place] [address] March, [facility] [address] [id number] [address] [place] [address], [place] [address] March, [facility] [address] [id number] [address] [place] [address], [place] [address] Feb, [facility] [address] [id number] [address] [place] [address], [place] [address] Feb, [facility] [address] [id number] [address] [place] [address], [place] [address] Jan, [facility] [address] [id number] [address] [place] [address], [place] [address] Jan, [facility] [address] [id number] [address] [place] [address], [place] [address] Jan, [facility] [address] [id number] [address] [place] [address], [place] [address] Jan, [facility] [address] [id number] [address] [place] [address], [place] [address] Dec, [facility] [address] [id number] [address] [place] [address], [place] [address] Dec, [facility] [address] [id number] [address] [place] [address], [place] [address] Nov, [facility] [address] [id number] [address] [place] [address], [place] [address] Nov, [facility] [address] [id number] [address] [place] [address], [place] [address] Nov, [facility] [address] [id number] [address] [place] [address], [place] [address] Nov, [facility] [address] [id number] [address] [place] [address], [place] [address] Oct, [facility] [address] [id number] [address] [place] [address], [place] [address] Oct, [facility] [address] [id number] [address] [place] [address], [place] [address] 14 Sep, 2013 [facility] [address] [id number] [address] [place] [address], [place] [address] 14 Sep, 2013 [facility] [address] [id number] [address] [place] [address], [place] [address] 26 Jul, 2013 [facility] [address] [id number] [address] [place] [address], [place] [address] Jul, [facility] [address] [id number] [address] [place] [address], [place] [address] Jul, [facility] [address] [id number] [address] [place] [address], [place] [address] Jun, [facility] [address] [id number] [address] [place] [address], [place] [address] Jun, [facility] [address] [id number] [address] [place] [address], [place] [address] May, [facility] [address] [id number] [address] [place] [address], [place] [address] May, [facility] [address] [id number] [address] [place] [address], [place] [address] May, [facility] [address] [id number] [address] [place] [address], [place] [address] March, [facility] [address] [id number] [address] [place] [address], [place] [address] Jan, [facility] [address] [id number] [address] [place] [address], [place] [phone] Jan, [facility] [address] [id number] [address] [place] [address], [place] [phone] Jan, [facility] [address] [id number] [address] [place] [address], [place] [phone] Dec, [facility] [address] [id number] [address] [place] [address], [place] [phone] May, [facility] [address] [id number] [address] [place] [phone] March, [facility] [address] [id number] [address] [place] [phone] Jan, [facility] [address] [id number] [address] [place] [phone] Aug, [facility] [address] [id number] [address] [place] [phone] Aug, [facility] [address] [id number] [address] [place] [phone] Aug, [facility] [address] [id number] [address] [place] [phone] Jun, [facility] [address] [facility] [id number] [address] [place] [phone] May, [facility] [address] [id number] [address] [place] [phone] Oct, IMMUNIZATIONS No Known Immunizations SOCIAL HISTORY Never Assessed REASON FOR VISIT lt. hip pain PLAN OF CARE VITAL SIGNS MEDICATIONS Unknown Medications RESULTS No Results PROCEDURES Procedure Date Ordered Result Body Site X-RAY EXAM HIP UNI 2-3 VIEWS January 21, 2018 INSTRUCTIONS MEDICATIONS ADMINISTERED No Known Medications MEDICAL (GENERAL) HISTORY Type Description Date Medical History Hypertension Medical History Arthritis Medical History Dermatophytosis of nail Medical History Unspecified hemorrhoids without mention of complication Medical History Hallux rigidus Medical History Hallux valgus (acquired) Medical History neuropathy Surgical History spinal stenosis 2013 Hospitalization History surgery Hospitalization History left axilla abcess, hypokalemia-[facility] 05/29/17
--- OUTSIDE RECORDS SUMMARY | 2020-02-05 11:07 | XMS REPORT ---
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 Specialist Name Role Phone JAYME ESPARZA Unavailable PROBLEMS Type Condition ICD9-CM Code MPT93-WT Code Onset Dates Condition S tatus SNOMED Code Problem Hx of cervical spine surgery Z98.89 A ctive 029798027 Problem Drug-induced erectile dysfunction N52.2 Active 927443577 Problem Anger R45.4 Active 62641644 Problem Gastroesophageal reflux disease with esophagitis K 21.0 Active 202252721 Problem Erectile dysfunction, unspecified erectile dysfunction typ e N52.9 Active 860112950 Problem Candidal dermatitis B37.2 Active 67729696 Problem Psychophysiological insomnia F51.04 A ctive 196871471 Problem Wheezing R06.2 Active 45864348 Problem Anxiety F41.9 Active 73568162 Problem Primary osteoarthritis of left hip M16.12 Active 979999050 Problem Idiopathic peripheral neuropathy G60.9 Active 72325486 Problem Low back pain M54.5 Active 034228 005 Problem Pain in right foot M79.671 Active 4 4232644 Problem Pain in right knee M25.561 Active 3 [id number] Problem Pure hypercholesterolemia E78.00 Acti ve 852838994 Problem Other chronic pain G89.29 Active 8 0184836 Problem Mood disorder F39 Active 022458 05 Problem Anxiety disorder, unspecified F41.9 Active 768463792 Problem Unspecified mood [affective] disorder F39 Active 726078740 Problem Essential hypertension I10 Active 35409099 Problem Mixed hyperlipidemia E78.2 Active 022757555 Problem Other stimulant dependence, 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 Active 297739714 Problem Cannabis dependence, uncomplicated F12.20 Active 73132802 Problem 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 Active 847707233 Problem Marijuana abuse F12.10 Active 2254 4009 ALLERGIES Substance Reaction Event Type Date Status Codeine Sulfate stomach problems Drug Allergy Jan, Active ENCOUNTERS Encounter Location Date Diagnosis [facility] [address] [id number] [address] [place] [address] May, Primary osteoarthritis of le ft hip M16.12 ; Pain in left hip M25.552 ; Other acute postprocedural pain G89.18 and Anxiety F41.9 [facility] [address] [id number] [address] [place] [address] May, [facility] [address] [id number] [address] [place] [address] Apr, Pain in right knee M25.561 a nd Mood disorder F39 [facility] [address] [id number] [address] [place] [address] Apr, [facility] [address] [id number] [address] [place] [id number] March, [facility] [address] [id number] [place] [phone] March, Encounter for dental exam an d cleaning w/o abnormal findings Z01.20 [facility] [address] [id number] [address] [place] [phone] March, Dental examination Z01.20 [facility] [address] [id number] [address] [place] [id number] March, Dental examination Z01.20 [facility] [address] [id number] [address] [place] [address] March, [facility] [address] [id number] [address] [place] [address] March, [facility] [address] [id number] [address] [place] [phone] Feb, [facility] [address] [id number] [address] [place] [phone] Feb, Primary osteoarthritis of le ft hip M16.12 [facility] [address] [id number] [address] [place] [address] Feb, Other chronic pain G89.29 an d Pain in left hip M25.552 [facility] [address] [id number] [address] [place] [address] Feb, Acute pain of left hip M25.5 52 [facility] [address] [id number] [address] [place] [address] Feb, Mood disorder F39 and Pain i n right knee M25.561 [facility] [address] [id number] [address] [place] [address] Jan, Other chronic pain G89.29 [facility] [address] [id number] [address] [place] [address] Jan, Mood disorder F39 [facility] [address] [id number] [address] [place] [address] Jan, Pain in right knee M25.561 [facility] [address] [id number] [address] [place] [address] Jan, Pain in left hip M25.552 and Other chronic pain G89.29 [facility] [address] [id number] [address] [place] [address] Jan, Acute pain of left hip M25.5 52 [facility] [address] [id number] [address] [place] [address] Jan, Acute pain of left hip M25.5 52 [facility] [address] [id number] [address] [place] [address] Jan, Mood disorder F39 and Acute pain of left hip M25.552 [facility] [address] [id number] [address] [place] [address] Nov, Mood disorder F39 [facility] [address] [id number] [address] [place] [address] Oct, Essential hypertension I10 ; Mixed hyperlipidemia E78.2 and Low back pain M54.5 [facility] [id number] [place] [id number] May, [place] [address] [address] Apr, Essential hypertension I10 ; Anger R45.4 ; Mixed hyperlipidemia E78.2 ; Drug-induced erectile dysfunction N52.2 ; Gastroesophageal reflux disease with esophagitis K21.0 ; Pure hypercholesterolemia E78.00 ; Pain in right knee M25.561 ; Psychophysiological insomnia F51.04 and Wheezing R06.2 [place] [address] [address] March, Hx of cervical spine surgery Z98.89 [place] [address] [address] March, [place] [address] [address] Feb, Anxiety associated with depr ession F41.8 [place] [address] [address] Jan, Anxiety associated with depr ession F41.8 [place] [address] [address] Dec, [place] [address] [address] Dec, [place] [address] [address] Dec, Essential hypertension I10 ; Hyperlipemia E78.5 and Erectile dysfunction, unspecified erectile dysfunction type N52.9 [place] [address] [address] Nov, Essential hypertension I10 ; Hx of cervical spine surgery Z98.89 ; Erectile dysfunction, unspecified erectile dysfunction type N52.9 ; Idiopathic peripheral neuropathy G60.9 ; Anger R45.4 ; Anxiety associated with depression F41.8 ; Hyperlipemia E78.5 ; Wheezing R06.2 and Has daytime drowsiness R40.0 [facility] [address] [place] [id number] [address] [place] [address] Nov, [facility] [address] [address] Nov, [facility] [address] [address] Sep, [facility] [address] [address] Sep, Acute midline low back pain without sciatica M54.5 [place] [address] [address] Sep, Acute bilateral low back ekta n without sciatica M54.5 [facility] [address] [address] Aug, [facility] [address] [address] Jun, Wheezing R06.2 ; Candidal de rmatitis B37.2 ; Essential hypertension I10 ; Erectile dysfunction, unspecified erectile dysfunction type N52.9 ; Idiopathic peripheral neuropathy G60.9 ; Mixed hyperlipidemia E78.2 and Other stimulant dependence, 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 [facility] [address] [address] March, Essential hypertension I10 ; Hx of cervical spine surgery Z98.89 ; Idiopathic peripheral neuropathy G60.9 ; Mixed hyperlipidemia E78.2 ; Anger R45.4 ; Drug-induced erectile dysfunction N52.2 and Gastroesophageal reflux disease with esophagitis K21.0 [facility] [address] [address] Feb, [facility] [address] [address] Dec, Low back pain M54.5 [facility] [address] [address] Dec, [facility] [id number] [place] [address] Dec, Unspecified mood [affective] disorder F39 ; Anxiety disorder, unspecified F41.9 ; Other stimulant dependence, 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 and Cannabis dependence, uncomplicated F12.20 [place] [address] [address] [place] [id number] [address] [place] [address] Dec, Essential hypertension I10 ; Hyperlipemia E78.5 ; Erectile dysfunction, unspecified erectile dysfunction type N52.9 ; Anger R45.4 ; Mixed hyperlipidemia E78.2 ; Anxiety associated with depression F41.8 ; Elevated serum creatinine R79.89 ; 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 and Marijuana abuse F12.10 [place] [address] [address] [place] [id number] [address] [place] [address] Oct, Essential hypertension I10 ; Idiopathic peripheral neuropathy G60.9 ; Low back pain M54.5 ; Hx of cervical spine surgery Z98.89 ; Erectile dysfunction, unspecified erectile dysfunction type N52.9 ; Anger R45.4 ; Mixed hyperlipidemia E78.2 and Anxiety associated with depression F41.8 [place] [address] [address] Oct, Unspecified mood [affective] disorder F39 and Anxiety disorder, unspecified F41.9 [place] [address] [address] [place] [id number] [address] [place] [address] Oct, Hyperlipemia E78.5 [place] [address] [address] Oct, Essential hypertension I10 [place] [address] [address] Oct, [place] [address] [address] Oct, Essential hypertension I10 ; Idiopathic peripheral neuropathy G60.9 ; Low back pain M54.5 ; Hx of cervical spine surgery Z98.89 ; Pain in right hand M79.641 ; Pain of left hand M79.642 ; Pain in left foot M79.672 ; Pain in right foot M79.671 ; Erectile dysfunction, unspecified erectile dysfunction type N52.9 and Anger R45.4 [facility] [address] [id number] [address] [place] [address] Sep, [facility] [address] [id number] [address] [place] [address] Jul, [facility] [address] [id number] [address] [place] [address] Jun, [facility] [address] [id number] [address] [place] [phone] May, [facility] [address] [id number] [address] [place] [address] Apr, [facility] [address] [id number] [address] [place] [address] March, [facility] [address] [id number] [address] [place] [phone] Feb, [facility] [address] [id number] [address] [place] [phone] Feb, [facility] [address] [id number] [address] [place] [phone] Jan, [facility] [address] [id number] [address] [place] [phone] Jan, [facility] [address] [id number] [address] [place] [phone] Nov, [facility] [address] [id number] [address] [place] [id number] Nov, [facility] [address] [id number] [address] [place] [phone] Nov, [facility] [address] [id number] [address] [place] [phone] Nov, [facility] [address] [id number] [address] [place] [address], [place] [address] Nov, [facility] [address] [id number] [address] [place] [address], [place] [address] Nov, [facility] [address] [id number] [address] [place] [address], [place] [address] Oct, [facility] [address] [id number] [address] [place] [address], [place] [address] Oct, [facility] [address] [id number] [address] [place] [address], [place] [address] Oct, [facility] [address] [id number] [address] [place] [address], [place] [address] Oct, [facility] [address] [id number] [address] [place] [address], [place] [address] Sep, [facility] [address] [id number] [address] [place] [address], [place] [address] Sep, [facility] [address] [id number] [address] [place] [address], [place] [address] Sep, [facility] [address] [id number] [address] [place] [address], [place] [address] Sep, [facility] [address] [id number] [address] [place] [address], [place] [address] Sep, [facility] [address] [id number] [address] [place] [address], [place] [address] 16 Aug, 2014 [facility] [address] [id number] [address] [place] [address], [place] [address] Aug, [facility] [address] [id number] [address] [place] [address], [place] [address] 15 Aug, 2014 [facility] [address] [id number] [address] [place] [address] Aug, [facility] [address] [id number] [address] [place] [id number] 15 Aug, 2014 [facility] [address] [id number] [address] [place] [address], [place] [address] 15 Aug, 2014 [facility] [address] [id number] [address] [place] [id number] 13 Aug, 2014 [facility] [address] [id number] [address] [place] [address], [place] [address] Aug, [facility] [address] [id number] [address] [place] [address] Aug, [facility] [address] [id number] [address] [place] [address], [place] [address] Aug, [facility] [address] [id number] [address] [place] [address], [place] [address] Aug, [facility] [address] [id number] [address] [place] [address], [place] [address] Jul, [facility] [address] [id number] [address] [place] [address], [place] [address] Jul, [facility] [address] [id number] [address] [place] [address], [place] [address] 18 Jul, 2014 [facility] [address] [id number] [address] [place] [address] Jul, [facility] [address] [id number] [address] [place] [address] Jun, [facility] [address] [id number] [address] [place] [address] Jun, [facility] [address] [id number] [address] [place] [address] Jun, [facility] [address] [id number] [address] [place] [address] Jun, [facility] [address] [id number] [address] [place] [address], [place] [address] Jun, [facility] [address] [id number] [address] [place] [address], [place] [address] Jun, [facility] [address] [id number] [address] [place] [address], [place] [address] May, [facility] [address] [id number] [address] [place] [address], [place] [address] May, [facility] [address] [id number] [address] [place] [address], [place] [address] May, [facility] [address] [id number] [address] [place] [address], [place] [address] May, [facility] [address] [id number] [address] [place] [address], [place] [id number] May, [facility] [address] [id number] [address] [place] [address], [place] [address] May, [facility] [address] [id number] [address] [place] [address], [place] [address] May, [facility] [address] [id number] [address] [place] [address], [place] [address] May, [facility] [address] [id number] [address] [place] [address], [place] [address] May, [facility] [address] [id number] [address] [place] [address], [place] [address] May, [facility] [address] [id number] [address] [place] [address], [place] [address] May, [facility] [address] [id number] [address] [place] [address], [place] [address] May, [facility] [address] [id number] [address] [place] [address], [place] [address] Apr, [facility] [address] [id number] [address] [place] [address], [place] [address] Apr, [facility] [address] [id number] [address] [place] [address], [place] [address] March, [facility] [address] [id number] [facility] [place] [address] March, [facility] [address] [id number] [facility] [place] [address] March, [facility] [address] [id number] [facility] [place] [address] March, [facility] [address] [id number] [address] [place] [address], [place] [address] Feb, [facility] [address] [id number] [address] [place] [address], [place] [address] Feb, [facility] [address] [id number] [address] [place] [address], [place] [address] Jan, [facility] [address] [id number] [address] [place] [address], [place] [address] Jan, [facility] [address] [id number] [address] [place] [address], [place] [address] Jan, [facility] [address] [id number] [address] [place] [address], [place] [address] Jan, [facility] [address] [id number] [address] [place] [address], [place] [address] Dec, [facility] [address] [id number] [address] [place] [address], [place] [address] Dec, [facility] [address] [id number] [address] [place] [address], [place] [address] Nov, [facility] [address] [id number] [address] [place] [address], [place] [address] Nov, [facility] [address] [id number] [address] [place] [address], [place] [address] Nov, [facility] [address] [id number] [address] [place] [address], [place] [address] Nov, [facility] [address] [id number] [address] [place] [address], [place] [address] 10 Oct, 2013 [facility] [address] [id number] [address] [place] [address], [place] [address] 10 Oct, 2013 [facility] [address] [id number] [address] [place] [address], [place] [address] Sep, [facility] [address] [id number] [address] [place] [address], [place] [address] Sep, [facility] [address] [id number] [address] [place] [address], [place] [address] Jul, [facility] [address] [id number] [address] [place] [address], [place] [address] Jul, [facility] [address] [id number] [address] [place] [address], [place] [address] Jul, [facility] [address] [id number] [address] [place] [address], [place] [address] Jun, [facility] [address] [id number] [address] [place] [address], [place] [address] Jun, [facility] [address] [id number] [address] [place] [address], [place] [address] May, [facility] [address] [id number] [address] [place] [address], [place] [address] May, [facility] [address] [id number] [address] [place] [address], [place] [address] May, [facility] [address] [id number] [address] [place] [address], [place] [address] March, [facility] [address] [id number] [address] [place] [address], [place] [address] Jan, [facility] [address] [id number] [address] [place] [address], [place] [address] Jan, [facility] [address] [id number] [address] [place] [address], [place] [id number] Jan, [facility] [address] [id number] [address] [place] [phone] Dec, [facility] [address] [id number] [address] [place] [phone] May, [facility] [address] [id number] [address] [place] [id number] March, [facility] [address] [id number] [address] [place] [phone] Jan, [facility] [address] [id number] [address] [place] [id number] Aug, [facility] [address] [id number] [address] [place] [phone] Aug, [facility] [address] [id number] [address] [place] [phone] Aug, [facility] [address] [id number] [address] [place] [phone] Jun, [facility] [address] [id number] [address] [place] [phone] May, [facility] [address] [id number] [address] [place] [phone] Oct, IMMUNIZATIONS Vaccine Route Administration Date Status TORADOL (IM) 60 MG/2ML (UP TO 15 MG) IM Intramuscular February 04, 2018 Administered SOCIAL HISTORY Never Assessed REASON FOR VISIT Injection CBrumbackRn PLAN OF CARE VITAL SIGNS MEDICATIONS No Known Medications RESULTS No Results PROCEDURES Procedure Date Ordered Result Body Site TORADOL (IM) 60 MG/2ML (UP TO 15 MG) February 04, 2018 THER/PROPH/DIAG INJ, SC/IM February 04, 2018 INSTRUCTIONS MEDICATIONS ADMINISTERED No Known Medications [...]
--- OUTSIDE RECORDS SUMMARY | 2020-02-05 11:07 | XMS REPORT ---
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 Name Role Phone JAYME ESPARZA Unavailable PROBLEMS Type Condition ICD9-CM Code III77-KL Code Onset Dates Condition S tatus SNOMED Code Problem Gastroesophageal reflux disease with esophagitis K 21.0 Active 301219801 Problem Wheezing R06.2 Active 49852211 Problem Candidal dermatitis B37.2 Active 41493234 Problem Primary osteoarthritis of left hip M16.12 Active 407472287 Problem Erectile dysfunction, unspecified erectile dysfunction typ e N52.9 Active 708657204 Problem Other chronic pain G89.29 Active 8 7552954 Problem Anger R45.4 Active 92051049 Problem Low back pain M54.5 Active 087623 005 Problem Pain in right knee M25.561 Active 3 [id number] Problem Pure hypercholesterolemia E78.00 Acti ve 513712140 Problem Mood disorder F39 Active 493638 05 Problem Psychophysiological insomnia F51.04 A ctive 834961447 Problem Mixed hyperlipidemia E78.2 Active 254134745 Problem Anxiety disorder, unspecified F41.9 Active 869526235 Problem Idiopathic peripheral neuropathy G60.9 Active 00811929 Problem Essential hypertension I10 Active 16844424 Problem Marijuana abuse F12.10 Active 3734 4009 Problem Other stimulant dependence, 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 Active 589426496 Problem Hx of cervical spine surgery Z98.89 A ctive 450851017 Problem Unspecified mood [affective] disorder F39 Active 741551575 Problem Cannabis dependence, uncomplicated F12.20 Active 28067018 Problem Pain in right foot M79.671 Active 4 1445271 Problem 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 Active 036104360 Problem Drug-induced erectile dysfunction N52.2 Active 962154848 ALLERGIES Substance Reaction Event Type Date Status Codeine Sulfate stomach problems Drug Allergy Jan, Active ENCOUNTERS Encounter Location Date Diagnosis [facility] [address] [facility] [id number] [address] [place] [address] May, [facility] [address] [id number] [address] [place] [address] May, [facility] [address] [id number] [address] [place] [address] Apr, Pain in right knee M25.561 a nd Mood disorder F39 [facility] [address] [id number] [address] [place] [address] Apr, [facility] [address] [id number] [address] [place] [id number] March, [facility] [address] [id number] [place] [address] [id number] March, Encounter for dental exam an d cleaning w/o abnormal findings Z01.20 [facility] [address] [id number] [address] [place] [id number] March, Dental examination Z01.20 [facility] [address] [id number] [address] [place] [address] [id number] March, Dental examination Z01.20 [facility] [address] [id number] [address] [place] [address] March, [facility] [address] [id number] [address] [place] [address] March, [facility] [address] [id number] [address] [place] [address] Feb, [facility] [address] [id number] [address] [place] [address] Feb, Primary osteoarthritis of le ft hip M16.12 [facility] [address] [id number] [address] [place] [address] Feb, Other chronic pain G89.29 an d Pain in left hip M25.552 [facility] [address] [id number] [address] [place] [address] Feb, Acute pain of left hip M25.5 52 [facility] [address] [id number] [address] [place] [address] Feb, Mood disorder F39 and Pain i n right knee M25.561 [facility] [address] [id number] [address] [place] [address] Jan, Other chronic pain G89.29 [facility] [address] [id number] [address] [place] [address] Jan, Mood disorder F39 [facility] [address] [id number] [address] [place] [address] Jan, Pain in right knee M25.561 [facility] [address] [id number] [address] [place] [address] Jan, Pain in left hip M25.552 and Other chronic pain G89.29 [facility] [address] [id number] [address] [place] [address] Jan, Acute pain of left hip M25.5 52 [facility] [address] [id number] [address] [place] [address] Jan, Acute pain of left hip M25.5 52 [facility] [address] [id number] [address] [place] [address] Jan, Mood disorder F39 and Acute pain of left hip M25.552 [facility] [address] [id number] [address] [place] [address] Nov, Mood disorder F39 [facility] [address] [id number] [address] [place] [address] Oct, Essential hypertension I10 ; Mixed hyperlipidemia E78.2 and Low back pain M54.5 [facility] [id number] [place] [id number] May, [facility] [address] [id number] [address] [place] [address] Apr, Essential hypertension I10 ; Anger R45.4 ; Mixed hyperlipidemia E78.2 ; Drug-induced erectile dysfunction N52.2 ; Gastroesophageal reflux disease with esophagitis K21.0 ; Pure hypercholesterolemia E78.00 ; Pain in right knee M25.561 ; Psychophysiological insomnia F51.04 and Wheezing R06.2 [facility] [address] [address] March, Hx of cervical spine surgery Z98.89 [place] [address] [address] March, [place] [address] [address] Feb, Anxiety associated with depr ession F41.8 [place] [address] [address] Jan, Anxiety associated with depr ession F41.8 [place] [address] [address] Dec, [place] [address] [address] Dec, [place] [address] [address] Dec, Essential hypertension I10 ; Erectile dysfunction, unspecified erectile dysfunction type N52.9 and Hyperlipemia E78.5 [place] [address] [address] Nov, Essential hypertension I10 ; Hx of cervical spine surgery Z98.89 ; Erectile dysfunction, unspecified erectile dysfunction type N52.9 ; Idiopathic peripheral neuropathy G60.9 ; Anger R45.4 ; Anxiety associated with depression F41.8 ; Hyperlipemia E78.5 ; Wheezing R06.2 and Has daytime drowsiness R40.0 [place] [address] [address] Nov, [place] [address] [place] [id number] [address] [place] [address] Nov, [facility] [address] [address] Sep, [facility] [address] [place] [id number] [place] [address] Sep, Acute midline low back pain without sciatica M54.5 [facility] [address] [address] Sep, Acute bilateral low back ekta n without sciatica M54.5 [place] [address] [address] Aug, [facility] [address] [address] Jun, Wheezing R06.2 ; Candidal de rmatitis B37.2 ; Essential hypertension I10 ; Erectile dysfunction, unspecified erectile dysfunction type N52.9 ; Idiopathic peripheral neuropathy G60.9 ; Mixed hyperlipidemia E78.2 and Other stimulant dependence, 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 [place] [address] [address] March, Essential hypertension I10 ; Hx of cervical spine surgery Z98.89 ; Idiopathic peripheral neuropathy G60.9 ; Mixed hyperlipidemia E78.2 ; Anger R45.4 ; Drug-induced erectile dysfunction N52.2 and Gastroesophageal reflux disease with esophagitis K21.0 [facility] [address] [place] [id number] [address] [place] [address] Feb, [facility] [address] [address] Dec, Low back pain M54.5 [facility] [address] [place] [id number] [place] [address] Dec, [facility] [address] [address] Dec, Unspecified mood [affective] disorder F39 ; Anxiety disorder, unspecified F41.9 ; Other stimulant dependence, 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 and Cannabis dependence, uncomplicated F12.20 [place] [address] [place] [id number] Dec, Essential hypertension I10 ; Hyperlipemia E78.5 ; Erectile dysfunction, unspecified erectile dysfunction type N52.9 ; Anger R45.4 ; Mixed hyperlipidemia E78.2 ; Anxiety associated with depression F41.8 ; Elevated serum creatinine R79.89 ; 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 and Marijuana abuse F12.10 [place] [address] [address] Oct, Essential hypertension I10 ; Idiopathic peripheral neuropathy G60.9 ; Low back pain M54.5 ; Hx of cervical spine surgery Z98.89 ; Erectile dysfunction, unspecified erectile dysfunction type N52.9 ; Anger R45.4 ; Mixed hyperlipidemia E78.2 and Anxiety associated with depression F41.8 [place] [address] [address] Oct, Unspecified mood [affective] disorder F39 and Anxiety disorder, unspecified F41.[address] [address] Oct, Hyperlipemia E78.5 [place] [address] [address] Oct, Essential hypertension I10 [place] [address] [address] Oct, [place] [address] [address] Oct, Essential hypertension I10 ; Idiopathic peripheral neuropathy G60.9 ; Low back pain M54.5 ; Hx of cervical spine surgery Z98.89 ; Pain in right hand M79.641 ; Pain of left hand M79.642 ; Pain in left foot M79.672 ; Pain in right foot M79.671 ; Erectile dysfunction, unspecified erectile dysfunction type N52.9 and Anger R45.4 [facility] [address] [id number] [address] [place] [address], [place] [address] Sep, [facility] [address] [id number] [address] [place] [address] Jul, [facility] [address] [id number] [address] [place] [address] Jun, [facility] [address] [id number] [address] [place] [address] May, [facility] [address] [id number] [address] [place] [address] Apr, [facility] [address] [id number] [address] [place] [address] March, [facility] [address] [id number] [address] [place] [address] Feb, [facility] [address] [id number] [address] [place] [address] Feb, [facility] [address] [id number] [address] [place] [address] Jan, [facility] [address] [id number] [address] [place] [address] Jan, [facility] [address] [id number] [address] [place] [address] Nov, [facility] [address] [id number] [address] [place] [address] Nov, [facility] [address] [id number] [address] [place] [address] Nov, [facility] [address] [id number] [address] [place] [address] Nov, [facility] [address] [id number] [address] [place] [address] Nov, [facility] [address] [id number] [address] [place] [address], [place] [address] Nov, [facility] [address] [id number] [address] [place] [address], [place] [address] Oct, [facility] [address] [id number] [address] [place] [address], [place] [address] Oct, [facility] [address] [id number] [address] [place] [address], [place] [address] Oct, [facility] [address] [id number] [address] [place] [address], [place] [address] Oct, [facility] [address] [id number] [address] [place] [address], [place] [address] Sep, [facility] [address] [id number] [address] [place] [address], [place] [address] Sep, [facility] [address] [id number] [address] [place] [address], [place] [address] Sep, [facility] [address] [id number] [address] [place] [address], [place] [address] Sep, [facility] [address] [id number] [address] [place] [address], [place] [address] Sep, [facility] [address] [id number] [address] [place] [address], [place] [address] 16 Aug, 2014 [facility] [address] [id number] [address] [place] [address], [place] [address] 16 Aug, 2014 [facility] [address] [id number] [address] [place] [address], [place] [address] 15 Aug, 2014 [facility] [address] [id number] [address] [place] [address], [place] [address] 15 Aug, 2014 [facility] [address] [id number] [address] [place] [address], [place] [address] 15 Aug, 2014 [facility] [address] [id number] [address] [place] [address], [place] [address] 15 Aug, 2014 [facility] [address] [id number] [address] [place] [address], [place] [address] 13 Aug, 2014 [facility] [address] [id number] [address] [place] [address], [place] [address] Aug, [facility] [address] [id number] [address] [place] [address], [place] [address] Aug, [facility] [address] [id number] [address] [place] [address], [place] [address] Aug, [facility] [address] [id number] [address] [place] [address], [place] [address] Aug, [facility] [address] [id number] [address] [place] [address], [place] [address] Jul, [facility] [address] [id number] [address] [place] [address], [place] [address] Jul, [facility] [address] [id number] [address] [place] [address], [place] [address] Jul, [facility] [address] [id number] [address] [place] [address], [place] [address] Jul, [facility] [address] [id number] [address] [place] [address], [place] [address] Jun, [facility] [address] [id number] [address] [place] [address] Jun, [facility] [address] [id number] [address] [place] [address] Jun, [facility] [address] [id number] [address] [place] [address], [place] [address] Jun, [facility] [address] [id number] [address] [place] [address], [place] [address] Jun, [facility] [address] [id number] [address] [place] [address] Jun, [facility] [address] [id number] [address] [place] [address] May, [facility] [address] [id number] [facility] [address] May, [facility] [address] [id number] [address] [place] [address], [place] [address] May, [facility] [address] [id number] [address] [place] [address], [place] [address] May, [facility] [address] [id number] [address] [place] [address], [place] [id number] May, [facility] [address] [id number] [address] [place] [address], [place] [address] May, [facility] [address] [id number] [address] [place] [address], [place] [address] May, [facility] [address] [id number] [address] [place] [address], [place] [address] May, [facility] [address] [id number] [address] [place] [address], [place] [address] May, [facility] [address] [id number] [address] [place] [address], [place] [address] May, [facility] [address] [id number] [address] [place] [address], [place] [address] May, [facility] [address] [id number] [address] [place] [address], [place] [address] May, [facility] [address] [id number] [address] [place] [address], [place] [address] Apr, [facility] [address] [id number] [address] [place] [address], [place] [address] Apr, [facility] [address] [id number] [address] [place] [address], [place] [address] March, [facility] [address] [id number] [address] [place] [address], [place] [address] March, [facility] [address] [id number] [facility] [address] March, [facility] [address] [id number] [address] [place] [address], [place] [address] March, [facility] [address] [id number] [address] [place] [address], [place] [address] Feb, [facility] [address] [id number] [address] [place] [address], [place] [address] Feb, [facility] [address] [id number] [address] [place] [address], [place] [address] Jan, [facility] [address] [id number] [address] [place] [address], [place] [address] Jan, [facility] [address] [id number] [address] [place] [address], [place] [address] Jan, [facility] [address] [id number] [address] [place] [address], [place] [address] Jan, [facility] [address] [id number] [address] [place] [address], [place] [address] Dec, [facility] [address] [id number] [address] [place] [address], [place] [address] Dec, [facility] [address] [id number] [address] [place] [address], [place] [address] Nov, [facility] [address] [id number] [address] [place] [address], [place] [address] Nov, [facility] [address] [id number] [address] [place] [address], [place] [address] Nov, [facility] [address] [id number] [address] [place] [address], [place] [address] Nov, [facility] [address] [id number] [address] [place] [address], [place] [address] Oct, [facility] [address] [id number] [address] [place] [address], [place] [address] Oct, [facility] [address] [id number] [address] [place] [address], [place] [address] Sep, [facility] [address] [id number] [address] [place] [address], [place] [address] Sep, [facility] [address] [id number] [address] [place] [address], [place] [address] Jul, [facility] [address] [id number] [address] [place] [address], [place] [address] Jul, [facility] [address] [id number] [address] [place] [address], [place] [address] Jul, [facility] [address] [id number] [address] [place] [address], [place] [address] Jun, [facility] [address] [id number] [address] [place] [address], [place] [address] Jun, [facility] [address] [id number] [address] [place] [address], [place] [address] May, [facility] [address] [id number] [address] [place] [address], [place] [address] May, [facility] [address] [id number] [address] [place] [address], [place] [address] May, [facility] [address] [id number] [address] [place] [address], [place] [address] March, [facility] [address] [id number] [address] [place] [address], [place] [id number] Jan, [facility] [address] [id number] [address] [place] [address], [place] [id number] Jan, [facility] [address] [id number] [address] [place] [address], [place] [address] Jan, [facility] [address] [id number] [address] [place] [address], [place] [address] Dec, [facility] [address] [id number] [address] [place] [id number] May, [facility] [address] [id number] [address] [place] [id number] March, [facility] [address] [id number] [address] [place] [id number] Jan, [facility] [address] [id number] [address] [place] [phone] Aug, [facility] [address] [id number] [address] [place] [id number] Aug, [facility] [address] [id number] [address] [place] [phone] Aug, [facility] [address] [id number] [address] [place] [id number] Jun, [facility] [address] [facility] [id number] [address] [place] [phone] May, [facility] [address] [id number] [address] [place] [id number] Oct, IMMUNIZATIONS No Known Immunizations SOCIAL HISTORY Never Assessed REASON FOR VISIT medication and referral PLAN OF CARE VITAL SIGNS MEDICATIONS Medication Instructions Dosage Frequency Start Date End Date Duration S tiffany PredniSONE 20 MG Orally Once a day 2 tablets 24h Jan, Jan, 05 days Active RESULTS No Results PROCEDURES No Known procedures INSTRUCTIONS MEDICATIONS ADMINISTERED No Known Medications MEDICAL (GENERAL) HISTORY Type Description Date Medical History Hypertension Medical History Arthritis Medical History Dermatophytosis of nail Medical History Unspecified hemorrhoids without mention of complication Medical History Hallux rigidus Medical History Hallux valgus (acquired) Medical History neuropathy Surgical History spinal stenosis 2014 Hospitalization History surgery Hospitalization History left axilla abcess, hypokalemia-[facility] 05/29/17
--- OUTSIDE RECORDS SUMMARY | 2020-02-05 11:07 | XMS REPORT ---
Author Author Jelani ESPARZA Organization [facility] Address [address] [place] [address] Care Team Providers Care Machine Engineer Name Role Phone JAYME ESPARZA Unavailable PROBLEMS Type Condition ICD9-CM Code NQO87-YC Code Onset Dates Condition S tatus SNOMED Code Problem Hx of cervical spine surgery Z98.89 A ctive 197864734 Problem Drug-induced erectile dysfunction N52.2 Active 249144541 Problem Anger R45.4 Active 54399937 Problem Gastroesophageal reflux disease with esophagitis K 21.0 Active 850357724 Problem Erectile dysfunction, unspecified erectile dysfunction typ e N52.9 Active 988328234 Problem Candidal dermatitis B37.2 Active 60620194 Problem Psychophysiological insomnia F51.04 A ctive 847886561 Problem Wheezing R06.2 Active 98330337 Problem Anxiety F41.9 Active 58488782 Problem Primary osteoarthritis of left hip M16.12 Active 552591739 Problem Idiopathic peripheral neuropathy G60.9 Active 78693340 Problem Low back pain M54.5 Active 127711 005 Problem Pain in right foot M79.671 Active 4 5824023 Problem Pain in right knee M25.561 Active 3 40250219380207 Problem Pure hypercholesterolemia E78.00 Acti ve 705780091 Problem Other chronic pain G89.29 Active 8 4631243 Problem Mood disorder F39 Active 688665 05 Problem Anxiety disorder, unspecified F41.9 Active 735495352 Problem Unspecified mood [affective] disorder F39 Active 173245505 Problem Essential hypertension I10 Active 82862505 Problem Mixed hyperlipidemia E78.2 Active 753307405 Problem Other stimulant dependence, 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 Active 538312581 Problem Cannabis dependence, uncomplicated F12.20 Active 34315402 Problem 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 Active 031480843 Problem Marijuana abuse F12.10 Active 3734 4009 ALLERGIES No Information ENCOUNTERS Encounter Location Date Diagnosis [facility] [address] [facility] [id number] [address] [place] [address] May, Primary osteoarthritis of le ft hip M16.12 ; Pain in left hip M25.552 ; Other acute postprocedural pain G89.18 and Anxiety F41.9 [facility] [address] [id number] [address] [place] [phone] May, [facility] [address] [id number] [address] [place] [phone] Apr, Pain in right knee M25.561 a nd Mood disorder F39 [facility] [address] [id number] [address] [place] [address] Apr, [facility] [address] [id number] [address] [place] [id number] March, [facility] [address] [id number] [address] [place] [address] [phone] March, Encounter for dental exam an d cleaning w/o abnormal findings Z01.20 [facility] [address] [id number] [address] [place] [address] [phone] March, Dental examination Z01.20 [facility] [address] [id number] [address] [place] [address] [id number] March, Dental examination Z01.20 [facility] [address] [id number] [address] [place] [address] March, [facility] [address] [id number] [address] [place] [address] March, [facility] [address] [id number] [address] [place] [phone] Feb, [facility] [address] [id number] [address] [place] [phone] Feb, Primary osteoarthritis of le ft hip M16.12 [facility] [address] [id number] [address] [place] [phone] Feb, Other chronic pain G89.29 an d Pain in left hip M25.552 [facility] [address] [id number] [address] [place] [phone] Feb, Acute pain of left hip M25.5 52 [facility] [address] [id number] [address] [place] [phone] Feb, Mood disorder F39 and Pain i n right knee M25.561 [facility] [address] [id number] [address] [place] [phone] Jan, Other chronic pain G89.29 [facility] [address] [id number] [address] [place] [phone] Jan, Mood disorder F39 [facility] [address] [id number] [address] [place] [phone] Jan, Pain in right knee M25.561 [facility] [address] [id number] [address] [place] [address] Jan, Pain in left hip M25.552 and Other chronic pain G89.29 [facility] [address] [id number] [address] [place] [phone] Jan, Acute pain of left hip M25.5 52 [facility] [address] [facility] [id number] [address] [place] [address] Jan, Acute pain of left hip M25.5 52 [facility] [address] [id number] [address] [place] [phone] Jan, Mood disorder F39 and Acute pain of left hip M25.552 [facility] [address] [id number] [address] [place] [phone] Nov, Mood disorder F39 [facility] [address] [facility] [id number] [address] [place] [phone] Oct, Essential hypertension I10 ; Mixed hyperlipidemia E78.2 and Low back pain M54.5 [facility] [address] [id number] [id number] May, [place] [address] [phone] Apr, Essential hypertension I10 ; Anger R45.4 ; Mixed hyperlipidemia E78.2 ; Drug-induced erectile dysfunction N52.2 ; Gastroesophageal reflux disease with esophagitis K21.0 ; Pure hypercholesterolemia E78.00 ; Pain in right knee M25.561 ; Psychophysiological insomnia F51.04 and Wheezing R06.2 [place] [address] [address] March, Hx of cervical spine surgery Z98.89 [place] [address] [phone] March, [place] [address] [phone] Feb, Anxiety associated with depr ession F41.8 [place] [address] [address] Jan, Anxiety associated with depr ession F41.8 [place] [address] [address] Dec, [place] [address] [phone] Dec, [place] [address] [address] Dec, Essential hypertension I10 ; Erectile dysfunction, unspecified erectile dysfunction type N52.9 and Hyperlipemia E78.5 [place] [address] [address] Nov, Essential hypertension I10 ; Hx of cervical spine surgery Z98.89 ; Erectile dysfunction, unspecified erectile dysfunction type N52.9 ; Idiopathic peripheral neuropathy G60.9 ; Anger R45.4 ; Anxiety associated with depression F41.8 ; Hyperlipemia E78.5 ; Wheezing R06.2 and Has daytime drowsiness R40.0 [place] [address] [place] [id number] [address] [place] [phone] Nov, [facility] [address] [facility] [id number] [address] [place] [phone] Nov, [facility] [address] [facility] [id number] [address] [place] [phone] Sep, [facility] [address] [place] [id number] [place] [address] Sep, Acute midline low back pain without sciatica M54.5 [facility] [address] [place] [id number] [address] [place] [phone] Sep, Acute bilateral low back ekta n without sciatica M54.5 [facility] [address] [place] [id number] [place] [phone] Aug, [facility] [address] [address] Jun, Wheezing R06.2 ; Candidal de rmatitis B37.2 ; Essential hypertension I10 ; Erectile dysfunction, unspecified erectile dysfunction type N52.9 ; Idiopathic peripheral neuropathy G60.9 ; Mixed hyperlipidemia E78.2 and Other stimulant dependence, 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 [facility] [address] [place] [id number] [address] [place] [address] March, Essential hypertension I10 ; Hx of cervical spine surgery Z98.89 ; Idiopathic peripheral neuropathy G60.9 ; Mixed hyperlipidemia E78.2 ; Anger R45.4 ; Drug-induced erectile dysfunction N52.2 and Gastroesophageal reflux disease with esophagitis K21.0 [facility] [address] [place] [id number] [address] [place] [phone] Feb, [facility] [address] [phone] Dec, Low back pain M54.5 [facility] [address] [place] [id number] [address] [place] [phone] Dec, [facility] [address] [place] [id number] [address] [place] [id number] Dec, Unspecified mood [affective] disorder F39 ; Anxiety disorder, unspecified F41.9 ; Other stimulant dependence, 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 and Cannabis dependence, uncomplicated F12.20 [place] [address] [place] [id number] [address] [place] [address] Dec, Essential hypertension I10 ; Hyperlipemia E78.5 ; Erectile dysfunction, unspecified erectile dysfunction type N52.9 ; Anger R45.4 ; Mixed hyperlipidemia E78.2 ; Anxiety associated with depression F41.8 ; Elevated serum creatinine R79.89 ; 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 and Marijuana abuse F12.10 [place] [address] [address] Oct, Essential hypertension I10 ; Idiopathic peripheral neuropathy G60.9 ; Low back pain M54.5 ; Hx of cervical spine surgery Z98.89 ; Erectile dysfunction, unspecified erectile dysfunction type N52.9 ; Anger R45.4 ; Mixed hyperlipidemia E78.2 and Anxiety associated with depression F41.8 [place] [address] [address] Oct, Unspecified mood [affective] disorder F39 and Anxiety disorder, unspecified F41.9 [place] [address] [place] [id number] [address] [place] [phone] Oct, Hyperlipemia E78.5 [place] [address] [place] [id number] [address] [place] [phone] Oct, Essential hypertension I10 [place] [address] [place] [id number] [address] [place] [phone] Oct, [place] [address] [place] [id number] [address] [place] [phone] Oct, Essential hypertension I10 ; Idiopathic peripheral neuropathy G60.9 ; Low back pain M54.5 ; Hx of cervical spine surgery Z98.89 ; Pain in right hand M79.641 ; Pain of left hand M79.642 ; Pain in left foot M79.672 ; Pain in right foot M79.671 ; Erectile dysfunction, unspecified erectile dysfunction type N52.9 and Anger R45.4 [facility] [address] [id number] [address] [place] [phone] Sep, [facility] [address] [id number] [address] [place] [phone] Jul, [facility] [address] [id number] [address] [place] [phone] Jun, [facility] [address] [id number] [address] [place] [phone] May, [facility] [address] [id number] [address] [place] [phone] Apr, [facility] [address] [id number] [address] [place] [phone] March, [facility] [address] [id number] [address] [place] [phone] Feb, [facility] [address] [id number] [address] [place] [phone] Feb, [facility] [address] [id number] [address] [place] [phone] Jan, [facility] [address] [id number] [address] [place] [phone] Jan, [facility] [address] [id number] [address] [place] [phone] Nov, [facility] [address] [id number] [address] [place] [phone] Nov, [facility] [address] [id number] [address] [place] [phone] Nov, [facility] [address] [id number] [address] [place] [phone] Nov, [facility] [address] [id number] [address] [place] [address], [place] [address] Nov, [facility] [address] [id number] [address] [place] [address], [place] [address] Nov, [facility] [address] [id number] [address] [place] [address], [place] [address] Oct, [facility] [address] [id number] [address] [place] [address], [place] [address] Oct, [facility] [address] [id number] [address] [place] [address], [place] [address] Oct, [facility] [address] [id number] [address] [place] [address], [place] [address] Oct, [facility] [address] [id number] [address] [place] [address], [place] [address] Sep, [facility] [address] [id number] [address] [place] [address], [place] [address] Sep, [facility] [address] [id number] [address] [place] [address], [place] [address] Sep, [facility] [address] [id number] [address] [place] [address], [place] [address] Sep, [facility] [address] [id number] [address] [place] [address], [place] [address] Sep, [facility] [address] [id number] [address] [place] [address], [place] [address] 16 Aug, 2014 [facility] [address] [id number] [address] [place] [address], [place] [address] 16 Aug, 2014 [facility] [address] [id number] [address] [place] [address], [place] [address] 15 Aug, 2014 [facility] [address] [id number] [address] [place] [address], [place] [address] 15 Aug, 2014 [facility] [address] [id number] [address] [place] [address], [place] [address] 15 Aug, 2014 [facility] [address] [id number] [address] [place] [address], [place] [address] 15 Aug, 2014 [facility] [address] [id number] [address] [place] [address], [place] [address] 13 Aug, 2014 [facility] [address] [id number] [address] [place] [address], [place] [address] 07 Aug, 2014 [facility] [address] [id number] [address] [place] [address], [place] [address] Aug, [facility] [address] [id number] [address] [place] [address], [place] [address] Aug, [facility] [address] [id number] [address] [place] [address], [place] [address] Aug, [facility] [address] [id number] [address] [place] [address], [place] [address] Jul, [facility] [address] [id number] [address] [place] [address], [place] [address] Jul, [facility] [address] [id number] [address] [place] [address], [place] [address] Jul, [facility] [address] [id number] [address] [place] [address], [place] [address] Jul, [facility] [address] [id number] [address] [place] [address], [place] [address] Jun, [facility] [address] [id number] [address] [place] [address], [place] [address] Jun, [facility] [address] [id number] [address] [place] [address], [place] [address] Jun, [facility] [address] [id number] [address] [place] [address], [place] [address] Jun, [facility] [address] [id number] [address] [place] [address], [place] [address] Jun, [facility] [address] [id number] [address] [place] [address], [place] [address] Jun, [facility] [address] [id number] [facility] [place] [address] May, [facility] [address] [id number] [address] [place] [address], [place] [address] May, [facility] [address] [id number] [address] [place] [address], [place] [address] May, [facility] [address] [id number] [address] [place] [address], [place] [address] May, [facility] [address] [id number] [address] [place] [address], [place] [id number] May, [facility] [address] [id number] [address] [place] [address], [place] [address] May, [facility] [address] [id number] [address] [place] [address], [place] [address] May, [facility] [address] [id number] [address] [place] [address], [place] [address] May, [facility] [address] [id number] [address] [place] [address], [place] [address] May, [facility] [address] [id number] [address] [place] [address], [place] [address] May, [facility] [address] [id number] [address] [place] [address], [place] [address] May, [facility] [address] [id number] [address] [place] [address], [place] [address] May, [facility] [address] [id number] [address] [place] [address], [place] [address] Apr, [facility] [address] [id number] [address] [place] [address], [place] [address] Apr, [facility] [address] [id number] [address] [place] [address], [place] [address] March, [facility] [address] [id number] [address] [place] [address], [place] [address] March, [facility] [address] [id number] [address] [place] [address], [place] [address] March, [facility] [address] [id number] [address] [place] [address], [place] [address] March, [facility] [address] [id number] [address] [place] [address], [place] [address] Feb, [facility] [address] [id number] [address] [place] [address], [place] [address] Feb, [facility] [address] [id number] [address] [place] [address], [place] [address] Jan, [facility] [address] [id number] [address] [place] [address], [place] [address] Jan, [facility] [address] [id number] [address] [place] [address], [place] [address] Jan, [facility] [address] [id number] [address] [place] [address], [place] [address] Jan, [facility] [address] [id number] [address] [place] [address], [place] [address] Dec, [facility] [address] [id number] [address] [place] [address], [place] [address] Dec, [facility] [address] [id number] [address] [place] [address], [place] [address] Nov, [facility] [address] [id number] [address] [place] [address], [place] [address] Nov, [facility] [address] [id number] [address] [place] [address], [place] [address] Nov, [facility] [address] [id number] [address] [place] [address], [place] [address] Nov, [facility] [address] [id number] [address] [place] [address], [place] [address] Oct, [facility] [address] [id number] [address] [place] [address], [place] [address] Oct, [facility] [address] [id number] [address] [place] [address], [place] [address] Sep, [facility] [address] [id number] [address] [place] [address], [place] [address] Sep, [facility] [address] [id number] [address] [place] [address], [place] [address] Jul, [facility] [address] [id number] [address] [place] [address], [place] [address] Jul, [facility] [address] [id number] [address] [place] [address], [place] [address] Jul, [facility] [address] [id number] [address] [place] [address], [place] [address] Jun, [facility] [address] [id number] [address] [place] [address], [place] [address] Jun, [facility] [address] [id number] [address] [place] [address], [place] [address] May, [facility] [address] [id number] [address] [place] [address], [place] [address] May, [facility] [address] [id number] [address] [place] [address], [place] [address] May, [facility] [address] [id number] [address] [place] [address], [place] [address] March, [facility] [address] [id number] [address] [place] [address], [place] [address] Jan, [facility] [address] [id number] [address] [place] [address], [place] [address] Jan, [facility] [address] [id number] [address] [place] [address], [place] [address] Jan, [facility] [address] [id number] [address] [place] [phone] Dec, [facility] [address] [id number] [address] [place] [phone] May, [facility] [address] [id number] [address] [place] [phone] March, [facility] [address] [id number] [address] [place] [phone] Jan, [facility] [address] [id number] [address] [place] [phone] Aug, [facility] [address] [id number] [address] [place] [phone] Aug, [facility] [address] [id number] [address] [place] [phone] Aug, [facility] [address] [id number] [address] [place] [phone] Jun, [facility] [address] [id number] [address] [place] [phone] May, [facility] [address] [id number] [address] [place] [id number] Oct, IMMUNIZATIONS No Known Immunizations SOCIAL HISTORY Never Assessed REASON FOR VISIT Refill request PLAN OF CARE VITAL SIGNS MEDICATIONS Medication Instructions Dosage Frequency Start Date End Date Duration S tatus Celebrex 200 mg Orally Once a day 1 capsule with food 24h 30 days Active RESULTS No Results PROCEDURES No [...]
--- OUTSIDE RECORDS SUMMARY | 2020-02-05 11:08 | XMS REPORT ---
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 Active 797316717 Problem Drug-induced erectile dysfunction N52.2 Active 389126823 Problem Cannabis dependence, uncomplicated F12.20 Active 53686574 Problem Pain in right knee M25.561 Active 3 22612849129209 Problem Anger R45.4 Active 71346923 Problem Wheezing R06.2 Active 22189656 Problem Hx of cervical spine surgery Z98.89 A ctive 270852368 Problem Candidal dermatitis B37.2 Active 26850465 Problem Gastroesophageal reflux disease with esophagitis K 21.0 Active 488381583 Problem Psychophysiological insomnia F51.04 A ctive 336521856 Problem Pure hypercholesterolemia E78.00 Acti ve 802798091 Problem Essential hypertension I10 Active 25234410 Problem Pain in right foot M79.671 Active 4 1922603 Problem Erectile dysfunction, unspecified erectile dysfunction typ e N52.9 Active 968463070 Problem Idiopathic peripheral neuropathy G60.9 Active 05365990 Problem Anxiety disorder, unspecified F41.9 Active 085628211 Problem Unspecified mood [affective] disorder F39 Active 617366523 Problem Low back pain M54.5 Active 185272 005 Problem 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 Active 534333973 Problem Mixed hyperlipidemia E78.2 Active 021810618 Problem Marijuana abuse F12.10 Active 3734 4009 ALLERGIES Unknown Allergies SOCIAL HISTORY No smoking Hx information available PLAN OF CARE VITAL SIGNS MEDICATIONS No Known Medications RESULTS Name Result Date Reference Range CBC 2016-12-12 WBC 4.7 3.4-10.8 RBC 4.52 4.14-5.80 Hemoglobin 13.6 12.6-17.7 Hematocrit 40.4 37.5-51.0 MCV 89 79-97 MCH 30.1 26.6-33.0 MCHC 33.7 31.5-35.7 RDW 13.9 12.3-15.4 Platelets 264 150-379 Neutrophils 55 Lymphs 24 Monocytes 9 Eos 11 Basos 1 Neutrophils (Absolute) 2.7 1.4-7.0 Lymphs (Absolute) 1.1 0.7-3.1 Monocytes(Absolute) 0.4 0.1-0.9 Eos (Absolute) 0.5 0.0-0.4 Baso (Absolute) 0.0 0.0-0.2 Immature Granulocytes 0 Immature Grans (Abs) 0.0 0.0-0.1 PSA 2016-12-12 Prostate Specific Ag, Serum 0.6 0.0- 4.0 LIPID PANEL 2016-12-12 Cholesterol, Total 151 100-199 Triglycerides 100 0-149 HDL Cholesterol 42 >39 VLDL Cholesterol [place] 20 5-40 LDL Cholesterol Calc 89 0-99 CMP 2016-12-12 Glucose, Serum 105 65-99 BUN 19 6-24 Creatinine, Serum 0.76 0.76-1.27 eGFR If NonAfricn Am 101 >59 eGFR If Africn Am 117 >59 BUN/Creatinine Ratio 25 9-20 Sodium, Serum 140 134-144 Potassium, Serum 3.8 3.5-5.2 Chloride, Serum 101 96-106 Carbon Dioxide, Total 23 18-29 Calcium, Serum 8.8 8.7-10.2 Protein, Total, Serum 6.9 6.0-8.5 Albumin, Serum 4.1 3.5-5.5 Globulin, Total 2.8 1.5-4.5 A/G Ratio 1.5 1.1-2.5 Bilirubin, Total 0.4 0.0-1.2 Alkaline Phosphatase, S 120 39-117 AST (SGOT) 20 0-40 ALT (SGPT) 20 0-44 PROCEDURES Procedure Date Ordered Related Diagnosis Body Site COMPLETE CBC W/AUTO DIFF WBC Dec 12, 2016 ASSAY OF PSA, TOTAL Dec 12, 2016 COMPREHEN METABOLIC PANEL Dec 12, 2016 LIPID PANEL Dec 12, 2016 VENIPUNCT, ROUTINE* Dec 12, 2016 IMMUNIZATIONS No Known Immunizations
--- OUTSIDE RECORDS SUMMARY | 2020-02-05 11:08 | XMS REPORT ---
Author Author Marlene ESPARZA Organization [facility] Address [address] [place] [address] Care Team Providers Care [facility] Name Role Phone ISAIAS JAYME Unavailable PROBLEMS Type Condition ICD9-CM Code [id number] Code Onset Dates Condition S tatus SNOMED Code Problem Gastroesophageal reflux disease with esophagitis K 21.0 Active 726156704 Problem Wheezing R06.2 Active 14978447 Problem Candidal dermatitis B37.2 Active 89442268 Problem Primary osteoarthritis of left hip M16.12 Active 289672942 Problem Erectile dysfunction, unspecified erectile dysfunction typ e N52.9 Active 741193637 Problem Other chronic pain G89.29 Active 8 4052624 Problem Anger R45.4 Active 27995691 Problem Low back pain M54.5 Active 243089 005 Problem Pain in right knee M25.561 Active 3 [id number] Problem Pure hypercholesterolemia E78.00 Acti ve 964458089 Problem Mood disorder F39 Active 213579 05 Problem Psychophysiological insomnia F51.04 A ctive 874598710 Problem Mixed hyperlipidemia E78.2 Active 075322569 Problem Anxiety disorder, unspecified F41.9 Active 245402357 Problem Idiopathic peripheral neuropathy G60.9 Active 57749202 Problem Essential hypertension I10 Active 17264137 Problem Marijuana abuse F12.10 Active 3734 4009 Problem Other stimulant dependence, 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 Active 728382598 Problem Hx of cervical spine surgery Z98.89 A ctive 016677995 Problem Unspecified mood [affective] disorder F39 Active 403582588 Problem Cannabis dependence, uncomplicated F12.20 Active 80850310 Problem Pain in right foot M79.671 Active 4 2449251 Problem 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 Active 484306904 Problem Drug-induced erectile dysfunction N52.2 Active 012913656 ALLERGIES Substance Reaction Event Type Date Status Codeine Sulfate stomach problems Drug Allergy Nov, Active ENCOUNTERS Encounter Location Date Diagnosis [facility] [address] [facility] [id number] [address] [place] [address] Apr, [facility] [address] [id number] [address] [place] [phone] March, [facility] [address] [id number] [address] [place] [id number] March, Encounter for dental exam an d cleaning w/o abnormal findings Z01.20 [facility] [address] [id number] [address] [place] [address] [id number] March, Dental examination Z01.20 [facility] [address] [id number] [address] [place] [address] [id number] March, Dental examination Z01.20 [facility] [address] [id number] [address] [place] [address] March, [facility] [address] [id number] [address] [place] [address] March, [facility] [address] [id number] [address] [place] [address] Feb, [facility] [address] [id number] [address] [place] [address] Feb, Primary osteoarthritis of le ft hip M16.12 [facility] [address] [id number] [address] [place] [address] Feb, Other chronic pain G89.29 an d Pain in left hip M25.552 [facility] [address] [id number] [address] [place] [address] Feb, Acute pain of left hip M25.5 52 [facility] [address] [id number] [address] [place] [address] Feb, Mood disorder F39 and Pain i n right knee M25.561 [facility] [address] [id number] [address] [place] [address] Jan, Other chronic pain G89.29 [facility] [address] [place] [id number] [address] [place] [address] 15 Jan, 2018 Mood disorder F39 [facility] [address] [facility] [id number] [address] [place] [address] 15 Jan, 2018 Pain in right knee M25.561 [place] [address] [place] [id number] [address] [place] [address] Jan, Pain in left hip M25.552 and Other chronic pain G89.29 [place] [address] [facility] [id number] [address] [place] [address] Jan, Acute pain of left hip M25.5 52 [place] [address] [place] [id number] [address] [place] [address] Jan, Acute pain of left hip M25.5 52 [place] [address] [place] [id number] [address] [place] [address] Jan, Mood disorder F39 and Acute pain of left hip M25.552 [place] [address] [facility] [id number] [address] [place] [address] Nov, Mood disorder F39 [place] [address] [place] [id number] [address] [place] [address] Oct, Essential hypertension I10 ; Mixed hyperlipidemia E78.2 and Low back pain M54.5 [facility] [address] [place] [id number] [place] [address] [phone] May, [place] [address] [place] [id number] [address] [place] [address] Apr, Essential hypertension I10 ; Anger R45.4 ; Mixed hyperlipidemia E78.2 ; Drug-induced erectile dysfunction N52.2 ; Gastroesophageal reflux disease with esophagitis K21.0 ; Pure hypercholesterolemia E78.00 ; Pain in right knee M25.561 ; Psychophysiological insomnia F51.04 and Wheezing R06.2 [place] [address] [facility] [id number] [address] [place] [address] 10 May, 2017 Hx of cervical spine surgery Z98.89 [facility] [address] [facility] [id number] [address] [place] [address] March, [facility] [address] [facility] [id number] [address] [place] [address] Feb, Anxiety associated with depr ession F41.8 [facility] [address] [facility] [id number] [address] [place] [address] Jan, Anxiety associated with depr ession F41.8 [facility] [address] [id number] [address] [place] [address] Dec, [facility] [address] [facility] [id number] [address] [place] [address] Dec, [facility] [address] [facility] [id number] [address] [place] [address] Dec, Essential hypertension I10 ; Erectile dysfunction, unspecified erectile dysfunction type N52.9 and Hyperlipemia E78.5 [facility] [address] [facility] [id number] [address] [place] [address] Nov, Essential hypertension I10 ; Hx of cervical spine surgery Z98.89 ; Erectile dysfunction, unspecified erectile dysfunction type N52.9 ; Idiopathic peripheral neuropathy G60.9 ; Anger R45.4 ; Anxiety associated with depression F41.8 ; Hyperlipemia E78.5 ; Wheezing R06.2 and Has daytime drowsiness R40.0 [facility] [address] [facility] [id number] [address] [place] [address] Nov, [facility] [address] [facility] [id number] [address] [place] [address] Nov, [facility] [address] [place] [id number] [address] [place] [address] Sep, [facility] [address] [place] [id number] [address] [place] [address] Sep, Acute midline low back pain without sciatica M54.5 [facility] [address] [id number] 10 Sep, 2016 Acute bilateral low back ekta n without sciatica M54.5 [place] [address] [id number] 07 Aug, 2016 [place] [address] [address] Jun, Wheezing R06.2 ; Candidal de rmatitis B37.2 ; Essential hypertension I10 ; Erectile dysfunction, unspecified erectile dysfunction type N52.9 ; Idiopathic peripheral neuropathy G60.9 ; Mixed hyperlipidemia E78.2 and Other stimulant dependence, 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 [place] [address] [address] March, Essential hypertension I10 ; Hx of cervical spine surgery Z98.89 ; Idiopathic peripheral neuropathy G60.9 ; Mixed hyperlipidemia E78.2 ; Anger R45.4 ; Drug-induced erectile dysfunction N52.2 and Gastroesophageal reflux disease with esophagitis K21.0 [place] [address] [address] 14 Feb, 2016 [place] [address] [address] Dec, Low back pain M54.5 [place] [address] [address] 11 Dec, 2015 [place] [address] [address] Dec, Unspecified mood [affective] disorder F39 ; Anxiety disorder, unspecified F41.9 ; Other stimulant dependence, 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 and Cannabis dependence, uncomplicated F12.20 [place] [address] [id number] 09 Dec, 2015 Essential hypertension I10 ; Hyperlipemia E78.5 ; Erectile dysfunction, unspecified erectile dysfunction type N52.9 ; Anger R45.4 ; Mixed hyperlipidemia E78.2 ; Anxiety associated with depression F41.8 ; Elevated serum creatinine R79.89 ; 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 and Marijuana abuse F12.10 [place] [address] [address] Oct, Essential hypertension I10 ; Idiopathic peripheral neuropathy G60.9 ; Low back pain M54.5 ; Hx of cervical spine surgery Z98.89 ; Erectile dysfunction, unspecified erectile dysfunction type N52.9 ; Anger R45.4 ; Mixed hyperlipidemia E78.2 and Anxiety associated with depression F41.8 [place] [address] [address] Oct, Unspecified mood [affective] disorder F39 and Anxiety disorder, unspecified F41.9 [place] [address] [place] [id number] [place] [address] Oct, Hyperlipemia E78.5 [place] [address] [address] Oct, Essential hypertension I10 [place] [address] [address] Oct, [place] [address] [address] Oct, Essential hypertension I10 ; Idiopathic peripheral neuropathy G60.9 ; Low back pain M54.5 ; Hx of cervical spine surgery Z98.89 ; Pain in right hand M79.641 ; Pain of left hand M79.642 ; Pain in left foot M79.672 ; Pain in right foot M79.671 ; Erectile dysfunction, unspecified erectile dysfunction type N52.9 and Anger R45.4 [place] [address] [address] Sep, [place] [address] [address] Jul, [place] [address] [address] Jun, [facility] [address] [id number] [address] [place] [address], [place] [address] May, [facility] [address] [id number] [address] [place] [address], [place] [address] Apr, [facility] [address] [id number] [address] [place] [address], [place] [address] March, [facility] [address] [id number] [address] [place] [address], [place] [address] Feb, [facility] [address] [id number] [address] [place] [address], [place] [address] Feb, [facility] [address] [id number] [address] [place] [address], [place] [address] Jan, [facility] [address] [id number] [address] [place] [address], [place] [address] Jan, [facility] [address] [id number] [address] [place] [address], [place] [address] Nov, [facility] [address] [id number] [address] [place] [address], [place] [address] Nov, [facility] [address] [id number] [address] [place] [address], [place] [address] Nov, [facility] [address] [id number] [address] [place] [address], [place] [address] Nov, [facility] [address] [id number] [address] [place] [address], [place] [address] Nov, [facility] [address] [id number] [address] [place] [address], [place] [address] Nov, [facility] [address] [id number] [address] [place] [address], [place] [address] Oct, [facility] [address] [id number] [address] [place] [address], [place] [address] Oct, [facility] [address] [id number] [address] [place] [address], [place] [address] Oct, [facility] [address] [id number] [address] [place] [address], [place] [address] Oct, [facility] [address] [id number] [address] [place] [address], [place] [address] Sep, [facility] [address] [id number] [address] [place] [address], [place] [address] Sep, [facility] [address] [id number] [address] [place] [address], [place] [address] Sep, [facility] [address] [id number] [address] [place] [address], [place] [address] Sep, [facility] [address] [id number] [address] [place] [address], [place] [address] Sep, [facility] [address] [id number] [address] [place] [address], [place] [address] 16 Aug, 2014 [facility] [address] [id number] [address] [place] [address], [place] [address] 16 Aug, 2014 [facility] [address] [id number] [address] [place] [address], [place] [address] 15 Aug, 2014 [facility] [address] [id number] [address] [place] [address], [place] [address] 15 Aug, 2014 [facility] [address] [id number] [address] [place] [address], [place] [address] 15 Aug, 2014 [facility] [address] [id number] [address] [place] [address] 15 Aug, 2014 [facility] [address] [id number] [address] [place] [address], [place] [address] 13 Aug, 2014 [facility] [address] [id number] [address] [place] [address], [place] [address] 07 Aug, 2014 [facility] [address] [id number] [address] [place] [address], [place] [address] 07 Aug, 2014 [facility] [address] [id number] [address] [place] [address], [place] [address] Aug, [facility] [address] [id number] [address] [place] [address], [place] [address] Aug, [facility] [address] [id number] [address] [place] [address], [place] [address] Jul, [facility] [address] [id number] [address] [place] [address], [place] [address] Jul, [facility] [address] [id number] [address] [place] [address], [place] [address] Jul, [facility] [address] [id number] [address] [place] [address], [place] [address] Jul, [facility] [address] [id number] [address] [place] [address], [place] [address] Jun, [facility] [address] [id number] [address] [place] [address], [place] [address] Jun, [facility] [address] [id number] [address] [place] [address], [place] [address] Jun, [facility] [address] [id number] [address] [place] [address], [place] [address] Jun, [facility] [address] [id number] [address] [place] [address], [place] [address] Jun, [facility] [address] [id number] [address] [place] [address], [place] [address] Jun, [facility] [address] [id number] [address] [place] [address], [place] [address] May, [facility] [address] [id number] [address] [place] [address], [place] [address] May, [facility] [address] [id number] [address] [place] [address], [place] [address] May, [facility] [address] [id number] [address] [place] [address], [place] [address] May, [facility] [address] [id number] [address] [place] [address], [place] [id number] May, [facility] [address] [id number] [address] [place] [address], [place] [address] May, [facility] [address] [id number] [address] [place] [address], [place] [address] May, [facility] [address] [id number] [address] [place] [address], [place] [address] May, [facility] [address] [id number] [address] [place] [address], [place] [address] May, [facility] [address] [id number] [address] [place] [address], [place] [address] May, [facility] [address] [id number] [address] [place] [address], [place] [address] May, [facility] [address] [id number] [address] [place] [address], [place] [address] May, [facility] [address] [id number] [address] [place] [address], [place] [address] Apr, [facility] [address] [id number] [address] [place] [address], [place] [address] Apr, [facility] [address] [id number] [address] [place] [address], [place] [address] March, [facility] [address] [id number] [address] [place] [address], [place] [address] March, [facility] [address] [id number] [address] [place] [address], [place] [address] March, [facility] [address] [id number] [address] [place] [address], [place] [address] March, [facility] [address] [id number] [address] [place] [address], [place] [address] Feb, [facility] [address] [id number] [address] [place] [address], [place] [address] Feb, [facility] [address] [id number] [address] [place] [address], [place] [address] Jan, [facility] [address] [id number] [address] [place] [address], [place] [address] Jan, [facility] [address] [id number] [address] [place] [address], [place] [address] Jan, [facility] [address] [id number] [address] [place] [address], [place] [address] Jan, [facility] [address] [id number] [address] [place] [address], [place] [address] Dec, [facility] [address] [id number] [address] [place] [address], [place] [address] Dec, [facility] [address] [id number] [address] [place] [address], [place] [address] Nov, [facility] [address] [id number] [address] [place] [address], [place] [address] Nov, [facility] [address] [id number] [address] [place] [address], [place] [address] Nov, [facility] [address] [id number] [address] [place] [address], [place] [address] Nov, [facility] [address] [id number] [address] [place] [address], [place] [address] Oct, [facility] [address] [id number] [address] [place] [address], [place] [address] Oct, [facility] [address] [id number] [address] [place] [address], [place] [address] Sep, [facility] [address] [id number] [address] [place] [address], [place] [address] Sep, [facility] [address] [id number] [address] [place] [address], [place] [address] Jul, [facility] [address] [id number] [address] [place] [address], [place] [address] Jul, [facility] [address] [id number] [address] [place] [address], [place] [address] Jul, [facility] [address] [id number] [address] [place] [address], [place] [address] Jun, [facility] [address] [id number] [address] [place] [address], [place] [address] Jun, [facility] [address] [id number] [address] [place] [address], [place] [address] May, [facility] [address] [id number] [address] [place] [address], [place] [address] May, [facility] [address] [id number] [address] [place] [address], [place] [address] May, [facility] [address] [id number] [address] [place] [address], [place] [address] March, [facility] [address] [id number] [address] [place] [address], [place] [address] Jan, [facility] [address] [id number] [address] [place] [address], [place] [address] Jan, [facility] [address] [id number] [address] [place] [address], [place] [id number] Jan, [facility] [address] [id number] [address] [place] [address], [place] [id number] Dec, [facility] [address] [id number] [address] [place] [address], [place] [id number] May, [facility] [address] [id number] [address] [place] [address], [place] [id number] March, [facility] [address] [id number] [address] [place] [address], [place] [address] Jan, [facility] [address] [id number] [address] [place] [address], [place] [address] Aug, [facility] [address] [id number] [address] [place] [id number] Aug, [facility] [address] [id number] [address] [place] [id number] Aug, [facility] [address] [facility] [id number] [address] [place] [id number] Jun, [facility] [address] [facility] [id number] [address] [place] [id number] May, [facility] [address] [facility] [id number] [address] [place] [id number] Oct, IMMUNIZATIONS No Known Immunizations SOCIAL HISTORY Never Assessed REASON FOR VISIT Transition of Care - MICHELLE Qureshi, Has been out of medications PLAN OF CARE Activity Details Follow Up 4 Weeks Reason:mood disorder VITAL SIGNS Height 66 in 2017-11-20 Weight 208 lbs 2017-11-20 Temperature 97.8 degrees Fahrenheit 2017-11-20 Heart Rate 88 bpm 2017-11-20 Respiratory Rate 20 2017-11-20 BMI 33.57 kg/m2 2017-11-20 Blood pressure systolic 146 mmHg 2017-11-20 Blood pressure diastolic 108 mmHg 2017-11-20 MEDICATIONS Medication Instructions Dosage Frequency Start Date End Date Duration S tatus Indomethacin 25 MG Orally Twice a day PRN 1 capsule with food or mi lk Oct, Active Lisinopril 10 mg Orally Once a day 1 tablet 24h Oct, Active Celebrex 200 mg Orally Once a day 1 capsule with food 24h Active Viagra 100 MG Orally Once a day as needed 1 tablet as needed Active Norvasc 5 mg Orally Once a day 1 tablet 24h Dec, Active Trazodone HCl 150 MG Orally Once a day 1 tablet at bedtime 24h 2017 Active RESULTS No Results PROCEDURES No Known [...]
--- OUTSIDE RECORDS SUMMARY | 2020-02-05 11:08 | XMS REPORT ---
Author Author Jelani ESPARZA Organization [facility] Address [address] [place] [address] Care Team Providers Care Explosive Technician Name Role Phone JAYME ESPARZA Unavailable PROBLEMS Type Condition ICD9-CM Code WSW20-IN Code Onset Dates Condition S tatus SNOMED Code Problem Gastroesophageal reflux disease with esophagitis K 21.0 Active 964963524 Problem Wheezing R06.2 Active 30294418 Problem Candidal dermatitis B37.2 Active 30655205 Problem Primary osteoarthritis of left hip M16.12 Active 423192115 Problem Erectile dysfunction, unspecified erectile dysfunction typ e N52.9 Active 403948031 Problem Other chronic pain G89.29 Active 8 5570045 Problem Anger R45.4 Active 89195806 Problem Low back pain M54.5 Active 781849 005 Problem Pain in right knee M25.561 Active 3 [id number] Problem Pure hypercholesterolemia E78.00 Acti ve 221153455 Problem Mood disorder F39 Active 500814 05 Problem Psychophysiological insomnia F51.04 A ctive 150122759 Problem Mixed hyperlipidemia E78.2 Active 160032105 Problem Anxiety disorder, unspecified F41.9 Active 178785229 Problem Idiopathic peripheral neuropathy G60.9 Active 82673257 Problem Essential hypertension I10 Active 29135890 Problem Marijuana abuse F12.10 Active 3734 4009 Problem Other stimulant dependence, 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 Active 792630970 Problem Hx of cervical spine surgery Z98.89 A ctive 199006252 Problem Unspecified mood [affective] disorder F39 Active 039035684 Problem Cannabis dependence, uncomplicated F12.20 Active 48170247 Problem Pain in right foot M79.671 Active 4 7604654 Problem 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 Active 943821397 Problem Drug-induced erectile dysfunction N52.2 Active 743863151 ALLERGIES Substance Reaction Event Type Date Status Codeine Sulfate stomach problems Drug Allergy Jan, Active ENCOUNTERS Encounter Location Date Diagnosis [facility] [address] [facility] [id number] [address] [place] [address] May, [facility] [address] [id number] [address] [place] [address] May, [facility] [address] [id number] [address] [place] [address] Apr, Pain in right knee M25.561 a nd Mood disorder F39 [facility] [address] [id number] [address] [place] [address] Apr, [facility] [address] [id number] [address] [place] [address] [id number] March, [facility] [address] [id number] [place] [address] [id number] March, Encounter for dental exam an d cleaning w/o abnormal findings Z01.20 [facility] [address] [id number] [address] [place] [address] [id number] March, Dental examination Z01.20 [facility] [address] [id number] [address] [place] [address] [id number] March, Dental examination Z01.20 [facility] [address] [id number] [address] [place] [address] March, [facility] [address] [id number] [address] [place] [address] March, [facility] [address] [id number] [address] [place] [address] Feb, [facility] [address] [id number] [address] [place] [address] Feb, Primary osteoarthritis of le ft hip M16.12 [facility] [address] [id number] [address] [place] [address] Feb, Other chronic pain G89.29 an d Pain in left hip M25.552 [facility] [address] [id number] [address] [place] [address] Feb, Acute pain of left hip M25.5 52 [facility] [address] [id number] [address] [place] [address] Feb, Mood disorder F39 and Pain i n right knee M25.561 [facility] [address] [id number] [address] [place] [address] Jan, Other chronic pain G89.29 [facility] [address] [id number] [address] [place] [address] Jan, Mood disorder F39 [facility] [address] [id number] [address] [place] [address] Jan, Pain in right knee M25.561 [facility] [address] [id number] [address] [place] [address] Jan, Pain in left hip M25.552 and Other chronic pain G89.29 [facility] [address] [id number] [address] [place] [address] Jan, Acute pain of left hip M25.5 52 [facility] [address] [id number] [address] [place] [address] Jan, Acute pain of left hip M25.5 52 [facility] [address] [id number] [address] [place] [address] Jan, Mood disorder F39 and Acute pain of left hip M25.552 [facility] [address] [id number] [address] [place] [address] Nov, Mood disorder F39 [facility] [address] [id number] [address] [place] [address] Oct, Essential hypertension I10 ; Mixed hyperlipidemia E78.2 and Low back pain M54.5 [facility] [id number] [place] [address] [id number] May, [facility] [address] [id number] [address] [place] [address] Apr, Essential hypertension I10 ; Anger R45.4 ; Mixed hyperlipidemia E78.2 ; Drug-induced erectile dysfunction N52.2 ; Gastroesophageal reflux disease with esophagitis K21.0 ; Pure hypercholesterolemia E78.00 ; Pain in right knee M25.561 ; Psychophysiological insomnia F51.04 and Wheezing R06.2 [facility] [address] [address] March, Hx of cervical spine surgery Z98.89 [place] [address] [address] March, [place] [address] [address] Feb, Anxiety associated with depr ession F41.8 [place] [address] [address] Jan, Anxiety associated with depr ession F41.8 [place] [address] [address] Dec, [place] [address] [address] Dec, [place] [address] [address] Dec, Essential hypertension I10 ; Erectile dysfunction, unspecified erectile dysfunction type N52.9 and Hyperlipemia E78.5 [place] [address] [address] Nov, Essential hypertension I10 ; Hx of cervical spine surgery Z98.89 ; Erectile dysfunction, unspecified erectile dysfunction type N52.9 ; Idiopathic peripheral neuropathy G60.9 ; Anger R45.4 ; Anxiety associated with depression F41.8 ; Hyperlipemia E78.5 ; Wheezing R06.2 and Has daytime drowsiness R40.0 [place] [address] [address] Nov, [place] [address] [place] [id number] [address] [place] [address] Nov, [facility] [address] [address] Sep, [facility] [address] [place] [id number] [place] [address] Sep, Acute midline low back pain without sciatica M54.5 [facility] [address] [address] Sep, Acute bilateral low back ekta n without sciatica M54.5 [place] [address] [address] Aug, [facility] [address] [address] Jun, Wheezing R06.2 ; Candidal de rmatitis B37.2 ; Essential hypertension I10 ; Erectile dysfunction, unspecified erectile dysfunction type N52.9 ; Idiopathic peripheral neuropathy G60.9 ; Mixed hyperlipidemia E78.2 and Other stimulant dependence, 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 [place] [address] [address] March, Essential hypertension I10 ; Hx of cervical spine surgery Z98.89 ; Idiopathic peripheral neuropathy G60.9 ; Mixed hyperlipidemia E78.2 ; Anger R45.4 ; Drug-induced erectile dysfunction N52.2 and Gastroesophageal reflux disease with esophagitis K21.0 [facility] [address] [place] [id number] [address] [place] [address] Feb, [facility] [address] [address] Dec, Low back pain M54.5 [facility] [address] [place] [id number] [place] [address] Dec, [facility] [address] [address] Dec, Unspecified mood [affective] disorder F39 ; Anxiety disorder, unspecified F41.9 ; Other stimulant dependence, 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 and Cannabis dependence, uncomplicated F12.20 [place] [address] [place] [id number] Dec, Essential hypertension I10 ; Hyperlipemia E78.5 ; Erectile dysfunction, unspecified erectile dysfunction type N52.9 ; Anger R45.4 ; Mixed hyperlipidemia E78.2 ; Anxiety associated with depression F41.8 ; Elevated serum creatinine R79.89 ; 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 and Marijuana abuse F12.10 [place] [address] [address] Oct, Essential hypertension I10 ; Idiopathic peripheral neuropathy G60.9 ; Low back pain M54.5 ; Hx of cervical spine surgery Z98.89 ; Erectile dysfunction, unspecified erectile dysfunction type N52.9 ; Anger R45.4 ; Mixed hyperlipidemia E78.2 and Anxiety associated with depression F41.8 [place] [address] [address] Oct, Unspecified mood [affective] disorder F39 and Anxiety disorder, unspecified F41.[address] [address] Oct, Hyperlipemia E78.5 [place] [address] [address] Oct, Essential hypertension I10 [place] [address] [address] Oct, [place] [address] [address] Oct, Essential hypertension I10 ; Idiopathic peripheral neuropathy G60.9 ; Low back pain M54.5 ; Hx of cervical spine surgery Z98.89 ; Pain in right hand M79.641 ; Pain of left hand M79.642 ; Pain in left foot M79.672 ; Pain in right foot M79.671 ; Erectile dysfunction, unspecified erectile dysfunction type N52.9 and Anger R45.4 [facility] [address] [id number] [address] [place] [address], [place] [address] Sep, [facility] [address] [id number] [address] [place] [address] Jul, [facility] [address] [id number] [address] [place] [address] Jun, [facility] [address] [id number] [address] [place] [address] May, [facility] [address] [id number] [address] [place] [address] Apr, [facility] [address] [id number] [address] [place] [address] March, [facility] [address] [id number] [address] [place] [address] Feb, [facility] [address] [id number] [address] [place] [address] Feb, [facility] [address] [id number] [address] [place] [address] Jan, [facility] [address] [id number] [address] [place] [address] Jan, [facility] [address] [id number] [address] [place] [address] Nov, [facility] [address] [id number] [address] [place] [address] Nov, [facility] [address] [id number] [address] [place] [phone] Nov, [facility] [address] [id number] [address] [place] [address] Nov, [facility] [address] [id number] [address] [place] [address] Nov, [facility] [address] [id number] [address] [place] [address], [place] [address] Nov, [facility] [address] [id number] [address] [place] [address], [place] [address] Oct, [facility] [address] [id number] [address] [place] [address], [place] [address] Oct, [facility] [address] [id number] [address] [place] [address], [place] [address] Oct, [facility] [address] [id number] [address] [place] [address], [place] [address] Oct, [facility] [address] [id number] [address] [place] [address], [place] [address] Sep, [facility] [address] [id number] [address] [place] [address], [place] [address] Sep, [facility] [address] [id number] [address] [place] [address], [place] [address] Sep, [facility] [address] [id number] [address] [place] [address], [place] [address] Sep, [facility] [address] [id number] [address] [place] [address], [place] [address] Sep, [facility] [address] [id number] [address] [place] [address], [place] [address] 16 Aug, 2014 [facility] [address] [id number] [address] [place] [address], [place] [address] 16 Aug, 2014 [facility] [address] [id number] [address] [place] [address], [place] [address] 15 Aug, 2014 [facility] [address] [id number] [address] [place] [address], [place] [address] 15 Aug, 2014 [facility] [address] [id number] [address] [place] [address], [place] [address] 15 Aug, 2014 [facility] [address] [id number] [address] [place] [address], [place] [address] 15 Aug, 2014 [facility] [address] [id number] [address] [place] [address], [place] [address] 13 Aug, 2014 [facility] [address] [id number] [address] [place] [address], [place] [address] Aug, [facility] [address] [id number] [address] [place] [address], [place] [address] Aug, [facility] [address] [id number] [address] [place] [address], [place] [address] Aug, [facility] [address] [id number] [address] [place] [address], [place] [address] Aug, [facility] [address] [id number] [address] [place] [address], [place] [address] Jul, [facility] [address] [id number] [address] [place] [address], [place] [address] Jul, [facility] [address] [id number] [address] [place] [address], [place] [address] Jul, [facility] [address] [id number] [address] [place] [address], [place] [address] Jul, [facility] [address] [id number] [address] [place] [address], [place] [address] Jun, [facility] [address] [id number] [address] [place] [address] Jun, [facility] [address] [id number] [address] [place] [address] Jun, [facility] [address] [id number] [address] [place] [address], [place] [address] Jun, [facility] [address] [id number] [address] [place] [address], [place] [address] Jun, [facility] [address] [id number] [address] [place] [address] Jun, [facility] [address] [id number] [address] [place] [address] May, [facility] [address] [id number] [facility] [place] [address] May, [facility] [address] [id number] [address] [place] [address], [place] [address] May, [facility] [address] [id number] [address] [place] [address], [place] [address] May, [facility] [address] [id number] [address] [place] [address], [place] [id number] May, [facility] [address] [id number] [address] [place] [address], [place] [address] May, [facility] [address] [id number] [address] [place] [address], [place] [address] May, [facility] [address] [id number] [address] [place] [address], [place] [address] May, [facility] [address] [id number] [address] [place] [address], [place] [address] May, [facility] [address] [id number] [address] [place] [address], [place] [address] May, [facility] [address] [id number] [address] [place] [address], [place] [address] May, [facility] [address] [id number] [address] [place] [address], [place] [address] May, [facility] [address] [id number] [address] [place] [address], [place] [address] Apr, [facility] [address] [id number] [address] [place] [address], [place] [address] Apr, [facility] [address] [id number] [address] [place] [address], [place] [address] March, [facility] [address] [id number] [address] [place] [address], [place] [address] March, [facility] [address] [id number] [facility] [place] [address] March, [facility] [address] [id number] [address] [place] [address], [place] [address] March, [facility] [address] [id number] [address] [place] [address], [place] [address] Feb, [facility] [address] [id number] [address] [place] [address], [place] [address] Feb, [facility] [address] [id number] [address] [place] [address], [place] [address] Jan, [facility] [address] [id number] [address] [place] [address], [place] [address] Jan, [facility] [address] [id number] [address] [place] [address], [place] [address] Jan, [facility] [address] [id number] [address] [place] [address], [place] [address] Jan, [facility] [address] [id number] [address] [place] [address], [place] [address] Dec, [facility] [address] [id number] [address] [place] [address], [place] [address] Dec, [facility] [address] [id number] [address] [place] [address], [place] [address] Nov, [facility] [address] [id number] [address] [place] [address], [place] [address] Nov, [facility] [address] [id number] [address] [place] [address], [place] [address] Nov, [facility] [address] [id number] [address] [place] [address], [place] [address] Nov, [facility] [address] [id number] [address] [place] [address], [place] [address] Oct, [facility] [address] [id number] [address] [place] [address], [place] [address] Oct, [facility] [address] [id number] [address] [place] [address], [place] [address] Sep, [facility] [address] [id number] [address] [place] [address], [place] [address] Sep, [facility] [address] [id number] [address] [place] [address], [place] [address] Jul, [facility] [address] [id number] [address] [place] [address], [place] [address] Jul, [facility] [address] [id number] [address] [place] [address], [place] [address] Jul, [facility] [address] [id number] [address] [place] [address], [place] [address] Jun, [facility] [address] [id number] [address] [place] [address], [place] [address] Jun, [facility] [address] [id number] [address] [place] [address], [place] [id number] May, [facility] [address] [id number] [address] [place] [address], [place] [id number] May, [facility] [address] [id number] [address] [place] [address], [place] [id number] May, [facility] [address] [id number] [address] [place] [address], [place] [id number] March, [facility] [address] [id number] [address] [place] [address], [place] [id number] Jan, [facility] [address] [id number] [address] [place] [address], [place] [id number] Jan, [facility] [address] [id number] [address] [place] [address], [place] [id number] Jan, [facility] [address] [id number] [address] [place] [address], [place] [address] Dec, [facility] [address] [id number] [address] [place] [phone] 16 May, 2012 [facility] [address] [id number] [address] [place] [id number] March, [facility] [address] [id number] [address] [place] [phone] Jan, [facility] [address] [id number] [address] [place] [id number] Aug, [facility] [address] [id number] [address] [place] [phone] Aug, [facility] [address] [id number] [address] [place] [phone] Aug, [facility] [address] [id number] [address] [place] [id number] Jun, [facility] [address] [id number] [address] [place] [id number] May, [facility] [address] [id number] [address] [place] [phone] Oct, IMMUNIZATIONS Vaccine Route Administration Date Status TORADOL (IM) 60 MG/2ML (UP TO 15 MG) IM Intramuscular January 20, 2018 Administered SOCIAL HISTORY Never Assessed REASON FOR VISIT Injection CBrumbackRN PLAN OF CARE VITAL SIGNS MEDICATIONS Unknown Medications RESULTS No Results PROCEDURES Procedure Date Ordered Result Body Site TORADOL (IM) 60 MG/2ML (UP TO 15 MG) January 20, 2018 THER/PROPH/DIAG INJ, SC/IM January 20, 2018 INSTRUCTIONS MEDICATIONS ADMINISTERED No Known Medications MEDICAL (GENERAL) HISTORY Type Description Date Medical History Hypertension Medical History Arthritis Medical History Dermatophytosis of nail Medical History Unspecified hemorrhoids without mention of complication Medical History Hallux rigidus Medical History Hallux valgus (acquired) Medical History neuropathy Surgical History spinal stenosis 2013 Hospitalization History surgery Hospitalization History left axilla abcess, hypokalemia-[facility] 05/29/17
--- OUTSIDE RECORDS SUMMARY | 2020-02-05 11:08 | XMS REPORT ---
Author Author Marlene Richter Organization [facility] Address [address] [place] [address] Care Team Providers Care Boiler Attendant Name Role Phone JACKIE Richter Unavailable PROBLEMS Type Condition ICD9-CM Code [id number] Code Onset Dates Condition S tatus SNOMED Code Problem Gastroesophageal reflux disease with esophagitis K 21.0 Active 642328224 Problem Wheezing R06.2 Active 68613674 Problem Candidal dermatitis B37.2 Active 14998175 Problem Primary osteoarthritis of left hip M16.12 Active 597824297 Problem Erectile dysfunction, unspecified erectile dysfunction typ e N52.9 Active 941499009 Problem Other chronic pain G89.29 Active 8 2595606 Problem Anger R45.4 Active 42052906 Problem Low back pain M54.5 Active 377827 005 Problem Pain in right knee M25.561 Active 3 81568842208018 Problem Pure hypercholesterolemia E78.00 Acti ve 426635800 Problem Mood disorder F39 Active 503687 05 Problem Psychophysiological insomnia F51.04 A ctive 588374504 Problem Mixed hyperlipidemia E78.2 Active 195326006 Problem Anxiety disorder, unspecified F41.9 Active 783327116 Problem Idiopathic peripheral neuropathy G60.9 Active 34084794 Problem Essential hypertension I10 Active 64229792 Problem Marijuana abuse F12.10 Active 3734 4009 Problem Other stimulant dependence, 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 Active 461746815 Problem Hx of cervical spine surgery Z98.89 A ctive 047984387 Problem Unspecified mood [affective] disorder F39 Active 672920075 Problem Cannabis dependence, uncomplicated F12.20 Active 10380966 Problem Pain in right foot M79.671 Active 4 9477348 Problem 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 Active 162021262 Problem Drug-induced erectile dysfunction N52.2 Active 076558788 ALLERGIES Substance Reaction Event Type Date Status Codeine Sulfate stomach problems Drug Allergy Oct, Active ENCOUNTERS Encounter Location Date Diagnosis [facility] [address] [id number] [address] [place] [address] [id number] March, [facility] [address] [id number] [address] [place] [address] [phone] March, Encounter for dental exam an d cleaning w/o abnormal findings Z01.20 [facility] [address] [id number] [address] [place] [address] [id number] March, Dental examination Z01.20 [facility] [address] [id number] [address] [place] [address] [id number] March, Dental examination Z01.20 [facility] [address] [id number] [address] [place] [address] March, [facility] [address] [id number] [address] [place] [address] March, [facility] [address] [id number] [address] [place] [address] Feb, [facility] [address] [id number] [address] [place] [address] Feb, Primary osteoarthritis of le ft hip M16.12 [facility] [address] [id number] [address] [place] [address] Feb, Other chronic pain G89.29 an d Pain in left hip M25.552 [facility] [address] [id number] [address] [place] [address] Feb, Acute pain of left hip M25.5 52 [facility] [address] [id number] [address] [place] [address] Feb, Mood disorder F39 and Pain i n right knee M25.561 [facility] [address] [id number] [address] [place] [id number] Jan, Other chronic pain G89.29 [facility] [address] [id number] [address] [place] [address] Jan, Mood disorder F39 [facility] [address] [facility] [id number] [address] [place] [id number] 15 Jan, 2018 Pain in right knee M25.561 [facility] [address] [facility] [id number] [address] [place] [id number] Jan, Pain in left hip M25.552 and Other chronic pain G89.29 [facility] [address] [facility] [id number] [address] [place] [address] Jan, Acute pain of left hip M25.5 52 [place] [address] [facility] [id number] [address] [place] [address] Jan, Acute pain of left hip M25.5 52 [place] [address] [place] [id number] [address] [place] [id number] 08 Jan, 2018 Mood disorder F39 and Acute pain of left hip M25.552 [place] [address] [place] [id number] [address] [place] [id number] Nov, Mood disorder F39 [place] [address] [facility] [id number] [address] [place] [id number] Oct, Essential hypertension I10 ; Mixed hyperlipidemia E78.2 and Low back pain M54.5 [facility] [address] [place] [id number] [place] [address] [id number] May, [place] [address] [facility] [id number] [address] [place] [address] Apr, Essential hypertension I10 ; Anger R45.4 ; Mixed hyperlipidemia E78.2 ; Drug-induced erectile dysfunction N52.2 ; Gastroesophageal reflux disease with esophagitis K21.0 ; Pure hypercholesterolemia E78.00 ; Pain in right knee M25.561 ; Psychophysiological insomnia F51.04 and Wheezing R06.2 [facility] [address] [facility] [id number] [address] [place] [address] March, Hx of cervical spine surgery Z98.89 [place] [address] [place] [id number] [address] [place] [phone] March, [facility] [address] [place] [id number] [address] [place] [address] Feb, Anxiety associated with depr ession F41.8 [facility] [address] [place] [id number] [address] [place] [address] Jan, Anxiety associated with depr ession F41.8 [facility] [address] [place] [id number] [address] [place] [address] Dec, [facility] [address] [address] Dec, [place] [address] [place] [id number] [place] [address] Dec, Essential hypertension I10 ; Hyperlipemia E78.5 and Erectile dysfunction, unspecified erectile dysfunction type N52.9 [place] [address] [place] [id number] [address] [place] [id number] Nov, Essential hypertension I10 ; Hx of cervical spine surgery Z98.89 ; Erectile dysfunction, unspecified erectile dysfunction type N52.9 ; Idiopathic peripheral neuropathy G60.9 ; Anger R45.4 ; Anxiety associated with depression F41.8 ; Hyperlipemia E78.5 ; Wheezing R06.2 and Has daytime drowsiness R40.0 [place] [address] [place] [id number] [address] [place] [phone] Nov, [facility] [address] [place] [id number] [address] [place] [id number] Nov, [place] [address] [phone] Sep, [place] [address] [address] Sep, Acute midline low back pain without sciatica M54.5 [place] [address] [address] Sep, Acute bilateral low back ekta n without sciatica M54.5 [place] [address] [id number] 07 Aug, 2016 [place] [address] [id number] 25 Jun, 2016 Wheezing R06.2 ; Candidal de rmatitis B37.2 ; Essential hypertension I10 ; Erectile dysfunction, unspecified erectile dysfunction type N52.9 ; Idiopathic peripheral neuropathy G60.9 ; Mixed hyperlipidemia E78.2 and Other stimulant dependence, 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 [place] [address] [address] March, Essential hypertension I10 ; Hx of cervical spine surgery Z98.89 ; Idiopathic peripheral neuropathy G60.9 ; Mixed hyperlipidemia E78.2 ; Anger R45.4 ; Drug-induced erectile dysfunction N52.2 and Gastroesophageal reflux disease with esophagitis K21.0 [place] [address] [id number] 14 Feb, 2016 [place] [address] [address] Dec, Low back pain M54.5 [place] [address] [address] 11 Dec, 2015 [place] [address] [address] 09 Dec, 2015 Unspecified mood [affective] disorder F39 ; Anxiety disorder, unspecified F41.9 ; Other stimulant dependence, 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 and Cannabis dependence, uncomplicated F12.20 [place] [address] [address] 09 Dec, 2015 Essential hypertension I10 ; Hyperlipemia E78.5 ; Erectile dysfunction, unspecified erectile dysfunction type N52.9 ; Anger R45.4 ; Mixed hyperlipidemia E78.2 ; Anxiety associated with depression F41.8 ; Elevated serum creatinine R79.89 ; 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 and Marijuana abuse F12.10 [place] [id number] [place] [address] Oct, Essential hypertension I10 ; Idiopathic peripheral neuropathy G60.9 ; Low back pain M54.5 ; Hx of cervical spine surgery Z98.89 ; Erectile dysfunction, unspecified erectile dysfunction type N52.9 ; Anger R45.4 ; Mixed hyperlipidemia E78.2 and Anxiety associated with depression F41.8 [place] [address] [address] Oct, Unspecified mood [affective] disorder F39 and Anxiety disorder, unspecified F41.9 [place] [address] [address] Oct, Hyperlipemia E78.5 [place] [address] [address] Oct, Essential hypertension I10 [place] [address] [address] Oct, [place] [address] [address] Oct, Essential hypertension I10 ; Idiopathic peripheral neuropathy G60.9 ; Low back pain M54.5 ; Hx of cervical spine surgery Z98.89 ; Pain in right hand M79.641 ; Pain of left hand M79.642 ; Pain in left foot M79.672 ; Pain in right foot M79.671 ; Erectile dysfunction, unspecified erectile dysfunction type N52.9 and Anger R45.4 [place] [address] [address] Sep, [place] [address] [address] Jul, [place] [address] [place] [id number] [place] [address] Jun, [place] [address] [address] May, [facility] [address] [id number] [address] [place] [address], [place] [address] Apr, [facility] [address] [id number] [address] [place] [address], [place] [address] March, [facility] [address] [id number] [address] [place] [address], [place] [address] Feb, [facility] [address] [id number] [address] [place] [address], [place] [address] Feb, [facility] [address] [id number] [address] [place] [address], [place] [address] Jan, [facility] [address] [id number] [address] [place] [address], [place] [address] Jan, [facility] [address] [id number] [address] [place] [address], [place] [address] Nov, [facility] [address] [id number] [address] [place] [address], [place] [address] Nov, [facility] [address] [id number] [address] [place] [address], [place] [address] Nov, [facility] [address] [id number] [address] [place] [address], [place] [address] Nov, [facility] [address] [id number] [address] [place] [address], [place] [address] Nov, [facility] [address] [id number] [address] [place] [phone] Nov, [facility] [address] [id number] [address] [place] [address], [place] [address] Oct, [facility] [address] [id number] [address] [place] [address], [place] [address] Oct, [facility] [address] [id number] [address] [place] [address], [place] [address] Oct, [facility] [address] [id number] [address] [place] [address], [place] [address] Oct, [facility] [address] [id number] [address] [place] [address], [place] [address] Sep, [facility] [address] [id number] [address] [place] [address], [place] [address] Sep, [facility] [address] [id number] [address] [place] [address], [place] [address] Sep, [facility] [address] [id number] [address] [place] [address], [place] [address] Sep, [facility] [address] [id number] [address] [place] [address], [place] [address] Sep, [facility] [address] [id number] [address] [place] [address], [place] [address] 16 Aug, 2014 [facility] [address] [id number] [address] [place] [address], [place] [address] 16 Aug, 2014 [facility] [address] [id number] [address] [place] [address], [place] [address] 15 Aug, 2014 [facility] [address] [id number] [address] [place] [address], [place] [address] 15 Aug, 2014 [facility] [address] [id number] [address] [place] [address], [place] [address] 15 Aug, 2014 [facility] [address] [id number] [address] [place] [address], [place] [address] 15 Aug, 2014 [facility] [address] [id number] [address] [place] [address], [place] [address] 13 Aug, 2014 [facility] [address] [id number] [address] [place] [address], [place] [address] 07 Aug, 2014 [facility] [address] [id number] [address] [place] [address], [place] [address] 07 Aug, 2014 [facility] [address] [id number] [address] [place] [address], [place] [address] Aug, [facility] [address] [id number] [address] [place] [address], [place] [address] Aug, [facility] [address] [id number] [address] [place] [address], [place] [address] Jul, [facility] [address] [id number] [address] [place] [address], [place] [address] Jul, [facility] [address] [id number] [address] [place] [address], [place] [address] Jul, [facility] [address] [id number] [address] [place] [address], [place] [address] Jul, [facility] [address] [id number] [address] [place] [address], [place] [address] Jun, [facility] [address] [id number] [address] [place] [address], [place] [address] Jun, [facility] [address] [id number] [address] [place] [address], [place] [address] Jun, [facility] [address] [id number] [address] [place] [address], [place] [address] Jun, [facility] [address] [id number] [address] [place] [address], [place] [address] Jun, [facility] [address] [id number] [address] [place] [address] Jun, [facility] [address] [id number] [address] [place] [address], [place] [address] May, [facility] [address] [id number] [address] [place] [address], [place] [address] May, [facility] [address] [id number] [address] [place] [address], [place] [address] May, [facility] [address] [id number] [address] [place] [address] May, [facility] [address] [id number] [address] [place] [id number] May, [facility] [address] [id number] [address] [place] [address], [place] [address] May, [facility] [address] [id number] [address] [place] [address], [place] [address] May, [facility] [address] [id number] [address] [place] [address], [place] [address] May, [facility] [address] [id number] [address] [place] [address], [place] [address] May, [facility] [address] [id number] [address] [place] [address], [place] [address] May, [facility] [address] [id number] [address] [place] [address], [place] [address] May, [facility] [address] [id number] [address] [place] [address], [place] [address] May, [facility] [address] [id number] [address] [place] [address], [place] [address] Apr, [facility] [address] [id number] [address] [place] [address], [place] [address] Apr, [facility] [address] [id number] [address] [place] [address], [place] [address] March, [facility] [address] [id number] [address] [place] [address], [place] [address] March, [facility] [address] [id number] [address] [place] [address], [place] [address] March, [facility] [address] [id number] [address] [place] [address], [place] [address] March, [facility] [address] [id number] [address] [place] [address], [place] [address] Feb, [facility] [address] [id number] [address] [place] [address], [place] [address] Feb, [facility] [address] [id number] [address] [place] [address], [place] [address] Jan, [facility] [address] [id number] [address] [place] [address], [place] [address] Jan, [facility] [address] [id number] [address] [place] [address], [place] [address] Jan, [facility] [address] [id number] [address] [place] [address], [place] [address] Jan, [facility] [address] [id number] [address] [place] [address], [place] [address] Dec, [facility] [address] [id number] [address] [place] [address], [place] [address] Dec, [facility] [address] [id number] [address] [place] [address], [place] [address] Nov, [facility] [address] [id number] [address] [place] [address], [place] [address] Nov, [facility] [address] [id number] [address] [place] [address], [place] [address] Nov, [facility] [address] [id number] [address] [place] [address], [place] [address] Nov, [facility] [address] [id number] [address] [place] [address], [place] [address] Oct, [facility] [address] [id number] [address] [place] [address], [place] [address] Oct, [facility] [address] [id number] [address] [place] [address], [place] [address] Sep, [facility] [address] [id number] [address] [place] [address], [place] [address] Sep, [facility] [address] [id number] [address] [place] [address], [place] [address] 26 Jul, 2013 [facility] [address] [id number] [address] [place] [address], [place] [address] Jul, [facility] [address] [id number] [address] [place] [address], [place] [address] Jul, [facility] [address] [id number] [address] [place] [address], [place] [address] Jun, [facility] [address] [id number] [address] [place] [address], [place] [address] Jun, [facility] [address] [id number] [address] [place] [address], [place] [address] May, [facility] [address] [id number] [address] [place] [address], [place] [address] May, [facility] [address] [id number] [address] [place] [address], [place] [address] May, [facility] [address] [id number] [address] [place] [address], [place] [address] March, [facility] [address] [id number] [address] [place] [address], [place] [address] Jan, [facility] [address] [id number] [address] [place] [address], [place] [address] Jan, [facility] [address] [id number] [address] [place] [address], [place] [address] Jan, [facility] [address] [id number] [address] [place] [address], [place] [address] Dec, [facility] [address] [id number] [address] [place] [address], [place] [id number] May, [facility] [address] [id number] [address] [place] [address], [place] [address] March, [facility] [address] [id number] [address] [place] [address], [place] [address] Jan, [facility] [address] [id number] [address] [place] [address], [place] [address] Aug, [facility] [address] [id number] [address] [place] [id number] 13 Aug, 2011 [facility] [address] [facility] [id number] [address] [place] [phone] Aug, [facility] [address] [facility] [id number] [address] [place] [phone] Jun, [facility] [address] [facility] [id number] [address] [place] [phone] May, [facility] [address] [facility] [id number] [address] [place] [phone] Oct, IMMUNIZATIONS Vaccine Route Administration Date Status TORADOL (IM) 60 MG/2ML (UP TO 15 MG) IM Intramuscular Nov 08 Administered SOCIAL HISTORY Never Assessed REASON FOR VISIT Pain management (chronic)- stopped taking medication about 5 months ago and woul d like to be put back on medications [place], states he needs medications star ed for arthritis, HTN, high cholesterol, and pain PLAN OF CARE Activity Details Follow Up keep pending appointment donal [place] Reason: VITAL SIGNS Height 66 in 2017-11-08 Weight 204.8 lbs 2017-11-08 Temperature 97.4 degrees Fahrenheit 2017-11-08 Heart Rate 92 bpm 2017-11-08 Respiratory Rate 20 2017-11-08 BMI 33.05 kg/m2 2017-11-08 Blood pressure systolic 140 mmHg 2017-11-08 Blood pressure diastolic 88 mmHg 2017-11-08 MEDICATIONS Medication Instructions Dosage Frequency Start Date End Date Duration S tatus Norvasc 5 mg Orally Once a day 1 tablet 24h Dec, Not-Taking Celebrex 200 MG Orally Once a day 1 capsule with food 24h Not-Taking Neurontin 300 MG Orally 3 times a day 1 capsule 8h Not-Taking Indomethacin 25 MG Orally Twice a day PRN 1 capsule with food or mi lk Oct, Active Famotidine 20 MG Orally Once a day 1 tablet at bedtime 24h Not-Taking Ketoconazole 2 % Externally Twice a day as directed 12h Jun, Not-Taking [place] 7.5-325 MG Orally every 6 hrs 1 tablet as needed 6h 10 Sep, 016 Not-Taking Proventil HFA 108 (90 Base) MCG/ACT Inhalation every 4 hrs 2 puffs as needed 4h 25 Jun, 2016 30 days Not-Taking Trazodone HCl 50 MG Orally Once a day 2 tablet at bedtime 24h Apr, 90 days Not-Taking Citalopram Hydrobromide 20 MG TAKE ONE TABLET BY MOUTH ONCE SOLOMON Y 30 Not-Taking Lisinopril 10 mg Orally Once a day 1 tablet 24h 29 Oct, 2017 Active Viagra 50 mg Orally Once a day as needed 2 tablets Not-Taking Cyclobenzaprine HCl 10 mg Orally Three times a day 1 tablet 8h 30 Active Atorvastatin Calcium 10 mg Orally Once a day, voucher 1st fill only 1 tablet Active Celexa 20 mg Orally Once a day 1 tablet 24h 30 days Not-Taking RESULTS No Results PROCEDURES Procedure Date Ordered Result Body Site TORADOL (IM) 60 MG/2ML (UP TO 15 MG) Nov 08, 2017 THER/PROPH/DIAG INJ, SC/IM Nov 08, 2017 INSTRUCTIONS MEDICATIONS ADMINISTERED No Known Medications MEDICAL (GENERAL) HISTORY Type Description Date Medical History Hypertension Medical History Arthritis Medical History Dermatophytosis of nail Medical History Unspecified hemorrhoids without mention of complication Medical History Hallux rigidus Medical History Hallux valgus (acquired) Medical History neuropathy Surgical History spinal stenosis 2013 Hospitalization History surgery Hospitalization History left axilla abcess, hypokalemia-[facility] 05/29/17
--- OUTSIDE RECORDS SUMMARY | 2020-02-05 11:08 | XMS REPORT ---
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 Active 737239255 Problem Drug-induced erectile dysfunction N52.2 Active 219161801 Problem Cannabis dependence, uncomplicated F12.20 Active 20308263 Problem Pain in right knee M25.561 Active 3 80280684909349 Problem Anger R45.4 Active 34287060 Problem Wheezing R06.2 Active 50888463 Problem Hx of cervical spine surgery Z98.89 A ctive 262499033 Problem Candidal dermatitis B37.2 Active 01090469 Problem Gastroesophageal reflux disease with esophagitis K 21.0 Active 541431648 Problem Psychophysiological insomnia F51.04 A ctive 829207208 Problem Pure hypercholesterolemia E78.00 Acti ve 715695143 Problem Essential hypertension I10 Active 80973505 Problem Pain in right foot M79.671 Active 4 3737538 Problem Erectile dysfunction, unspecified erectile dysfunction typ e N52.9 Active 544506242 Problem Idiopathic peripheral neuropathy G60.9 Active 44959457 Problem Anxiety disorder, unspecified F41.9 Active 354367531 Problem Unspecified mood [affective] disorder F39 Active 747215633 Problem Low back pain M54.5 Active 908431 005 Problem 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 Active 772119905 Problem Mixed hyperlipidemia E78.2 Active 465896698 Problem Marijuana abuse F12.10 Active 3734 4009 ALLERGIES No Information SOCIAL HISTORY Never Assessed PLAN OF CARE VITAL SIGNS MEDICATIONS No Known Medications RESULTS No Results PROCEDURES No Known procedures IMMUNIZATIONS No Known Immunizations MEDICAL (GENERAL) HISTORY Type Description Date Medical History Hypertension Medical History Arthritis Medical History Dermatophytosis of nail Medical History Unspecified hemorrhoids without mention of complication Medical History Hallux rigidus Medical History Hallux valgus (acquired) Medical History neuropathy Surgical History spinal stenosis 2013 Hospitalization History surgery Hospitalization History left axilla abcess, hypokalemia-[facility] 05/29/17
--- OUTSIDE RECORDS SUMMARY | 2020-02-05 11:08 | XMS REPORT ---
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 Active 751556909 Problem Drug-induced erectile dysfunction N52.2 Active 078044522 Problem Cannabis dependence, uncomplicated F12.20 Active 19767002 Problem Pain in right knee M25.561 Active 3 37444737183678 Problem Anger R45.4 Active 30183008 Problem Wheezing R06.2 Active 51728866 Problem Hx of cervical spine surgery Z98.89 A ctive 436653336 Problem Candidal dermatitis B37.2 Active 58318571 Problem Gastroesophageal reflux disease with esophagitis K 21.0 Active 210670478 Problem Psychophysiological insomnia F51.04 A ctive 730984492 Problem Pure hypercholesterolemia E78.00 Acti ve 875354808 Problem Essential hypertension I10 Active 24478970 Problem Pain in right foot M79.671 Active 4 6813701 Problem Erectile dysfunction, unspecified erectile dysfunction typ e N52.9 Active 098732810 Problem Idiopathic peripheral neuropathy G60.9 Active 09084292 Problem Anxiety disorder, unspecified F41.9 Active 260198884 Problem Unspecified mood [affective] disorder F39 Active 633511424 Problem Low back pain M54.5 Active 582805 005 Problem 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
--- OUTSIDE RECORDS SUMMARY | 2020-02-05 11:08 | XMS REPORT ---
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 752829330 Problem Drug-induced erectile dysfunction N52.2 Active 222561422 Problem Cannabis dependence, uncomplicated F12.20 Active 90252726 Problem Pain in right knee M25.561 Active 3 13971003116709 Problem Anger R45.4 Active 86988398 Problem Wheezing R06.2 Active 53319900 Problem Hx of cervical spine surgery Z98.89 A ctive 893006298 Problem Candidal dermatitis B37.2 Active 70173954 Problem Gastroesophageal reflux disease with esophagitis K 21.0 Active 763562399 Problem Psychophysiological insomnia F51.04 A ctive 095645524 Problem Pure hypercholesterolemia E78.00 Acti ve 110412931 Problem Essential hypertension I10 Active 65366735 Problem Pain in right foot M79.671 Active 4 7794639 Problem Erectile dysfunction, unspecified erectile dysfunction typ e N52.9 Active 410760035 Problem Idiopathic peripheral neuropathy G60.9 Active 58977347 Problem Anxiety disorder, unspecified F41.9 Active 549032972 Problem Unspecified mood [affective] disorder F39 Active 924600050 Problem Low back pain M54.5 Active 770942 005 Problem 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 Active 063315649 Problem Mixed hyperlipidemia E78.2 Active 372411739 Problem Marijuana abuse F12.10 Active 3734 4009 ALLERGIES Substance Reaction Event Type Date Status Codeine Sulfate stomach problems Drug Allergy Nov, Active SOCIAL HISTORY No smoking Hx information available PLAN OF CARE Activity Details Follow Up 3 Months, prn Reason:xchm VITAL SIGNS Height 66 in 2016-12-10 Weight 215.8 lbs 2016-12-10 Temperature 98.3 degrees Fahrenheit 2016-12-10 Heart Rate 94 bpm 2016-12-10 Respiratory Rate 22 2016-12-10 BMI 34.83 kg/m2 2016-12-10 Blood pressure systolic 128 mmHg 2016-12-10 Blood pressure diastolic 88 mmHg 2016-12-10 MEDICATIONS Medication Instructions Dosage Frequency Start Date End Date Duration S tiffany Norvasc 5 mg Orally Once a day, voucher 1st fill only 1 tablet Dec, Active Proventil HFA 108 (90 Base) MCG/ACT Inhalation every 4 hrs 2 puffs as needed 4h Jun, 30 days Active Atorvastatin Calcium 10 mg Orally Once a day, voucher 1st fill only 1 tablet Active Viagra 50 MG Orally Once a day as needed 2 tablets Active Celecoxib 200 mg Orally Once a day 1 capsule 24h Nov, Feb, 90 days Active Celexa 20 MG Orally Once a day 1 tablet 24h 30 day(s ) Active Neurontin 300 MG Orally 2 times a day 1 capsule 12h Active RESULTS No Results PROCEDURES Procedure Date Ordered Related Diagnosis Body Site Office Visit, Est Pt., Level 4 Dec 10, 2016 IMMUNIZATIONS No Known Immunizations
--- OUTSIDE RECORDS SUMMARY | 2020-02-05 11:09 | XMS REPORT ---
Author Author Marlene MARIN Organization 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 370621782 Problem Drug-induced erectile dysfunction N52.2 Active 761419021 Problem Cannabis dependence, uncomplicated F12.20 Active 46684452 Problem Pain in right knee M25.561 Active 3 81686474265196 Problem Anger R45.4 Active 19290360 Problem Wheezing R06.2 Active 89986219 Problem Hx of cervical spine surgery Z98.89 A ctive 542019597 Problem Candidal dermatitis B37.2 Active 84833043 Problem Gastroesophageal reflux disease with esophagitis K 21.0 Active 482036778 Problem Psychophysiological insomnia F51.04 A ctive 868613076 Problem Pure hypercholesterolemia E78.00 Acti ve 631904831 Problem Essential hypertension I10 Active 82270614 Problem Pain in right foot M79.671 Active 4 6464103 Problem Erectile dysfunction, unspecified erectile dysfunction typ e N52.9 Active 644163725 Problem Idiopathic peripheral neuropathy G60.9 Active 62831207 Problem Anxiety disorder, unspecified F41.9 Active 126335176 Problem Unspecified mood [affective] disorder F39 Active 966969882 Problem Low back pain M54.5 Active 352400 005 Problem 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 Active 312672557 Problem Mixed hyperlipidemia E78.2 Active 322506014 Problem Marijuana abuse F12.10 Active 3734 4009 ALLERGIES No Information SOCIAL HISTORY Never Assessed PLAN OF CARE VITAL SIGNS MEDICATIONS Medication Instructions Dosage Frequency Start Date End Date Duration S tatus Celecoxib 200 mg Orally Once a day 1 capsule 24h Nov, 90 days Active RESULTS No Results PROCEDURES No [...]
--- OUTSIDE RECORDS SUMMARY | 2020-02-05 11:09 | XMS REPORT | Continuity of Care Document ---
Author Organization Unknown Address Unknown Phone Unavailable Allergies There is no data. Medications There is no data. Problems There is no data. Procedures There is no data. Results Test Result Range VITAMIN D, 25-H - 09/10/18 13:39 VITAMIN D,25-OH,TOTAL,IA 21 ng/mL 30-10 0 LIPID PANEL - 02/23/19 10:38 CHOLESTEROL, TOTAL 188 mg/dL <200 HDL CHOLESTEROL 43 mg/dL >40 TRIGLYCERIDES 334 mg/dL <150 LDL-CHOLESTEROL 100 mg/dL (calc) NRG CHOL/HDLC RATIO 4.4 (calc) <5.0 NON HDL CHOLESTEROL 145 mg/dL (calc) <13 0 CMP - 12/21/19 11:42 GLUCOSE 114 mg/dL 65-99 UREA NITROGEN (BUN) 18 mg/dL 7-25 CREATININE 0.87 mg/dL 0.70-1.25 eGFR NON-AFR. PAPUA [place] 94 mL/min/1.73m2 > OR = 60 eGFR 109 mL/min/1.73m2 > OR = 60 BUN/CREATININE RATIO NOT APPLICABLE (calc) 6-22 SODIUM 136 mmol/L 135-146 POTASSIUM 4.6 mmol/L 3.5-5.3 CHLORIDE 99 mmol/L 98-110 CARBON DIOXIDE 30 mmol/L 20-32 CALCIUM 9.4 mg/dL 8.6-10.3 PROTEIN, TOTAL 7.0 g/dL 6.1-8.1 ALBUMIN 4.2 g/dL 3.6-5.1 GLOBULIN 2.8 g/dL (calc) 1.9-3.7 ALBUMIN/GLOBULIN RATIO 1.5 (calc) 1.0-2. 5 BILIRUBIN, TOTAL 1.3 mg/dL 0.2-1.2 ALKALINE PHOSPHATASE 110 U/L 35-144 AST 37 U/L 10-35 ALT 32 U/L 9-46 CBC - 12/21/19 11:42 WHITE BLOOD CELL COUNT 8.5 Thousand/uL 3 .8-10.8 RED BLOOD CELL COUNT 4.94 Million/uL 4.2 0-5.80 HEMOGLOBIN 14.8 g/dL 13.2-17.1 HEMATOCRIT 45.5 % 38.5-50.0 MCV 92.1 fL 80.0-100.0 MCH 30.0 pg 27.0-33.0 MCHC 32.5 g/dL 32.0-36.0 RDW 13.1 % 11.0-15.0 PLATELET COUNT 236 Thousand/uL 140-400 MPV 10.6 fL 7.5-12.5 ABSOLUTE NEUTROPHILS 6647 cells/uL 1500- 7800 ABSOLUTE LYMPHOCYTES 663 cells/uL 850-39 00 ABSOLUTE MONOCYTES 740 cells/uL 200-950 ABSOLUTE EOSINOPHILS 400 cells/uL 15-500 ABSOLUTE BASOPHILS 51 cells/uL 0-200 NEUTROPHILS 78.2 % NRG LYMPHOCYTES 7.8 % NRG MONOCYTES 8.7 % NRG EOSINOPHILS 4.7 % NRG BASOPHILS 0.6 % NRG TSH - 12/21/19 11:42 TSH 0.46 mIU/L 0.40-4.50 VITAMIN D, 25-H - 12/21/19 11:42 VITAMIN D,25-OH,TOTAL,IA 25 ng/mL 30-10 0 CBC - 01/26/20 08:38 WHITE BLOOD CELL COUNT 8.2 Thousand/uL 3 .8-10.8 RED BLOOD CELL COUNT 3.99 Million/uL 4.2 0-5.80 HEMOGLOBIN 11.9 g/dL 13.2-17.1 HEMATOCRIT 35.7 % 38.5-50.0 MCV 89.5 fL 80.0-100.0 MCH 29.8 pg 27.0-33.0 MCHC 33.3 g/dL 32.0-36.0 RDW 12.3 % 11.0-15.0 PLATELET COUNT 311 Thousand/uL 140-400 MPV 10.3 fL 7.5-12.5 ABSOLUTE NEUTROPHILS 5838 cells/uL 1500- 7800 ABSOLUTE LYMPHOCYTES 1164 cells/uL 850-3 900 ABSOLUTE MONOCYTES 927 cells/uL 200-950 ABSOLUTE EOSINOPHILS 238 cells/uL 15-500 ABSOLUTE BASOPHILS 33 cells/uL 0-200 NEUTROPHILS 71.2 % NRG LYMPHOCYTES 14.2 % NRG MONOCYTES 11.3 % NRG EOSINOPHILS 2.9 % NRG BASOPHILS 0.4 % NRG HEPATITIS PROFILE - 01/28/20 08:55 HEPATITIS A IGM NON-REACTIVE NON-REACTI VE HEPATITIS B SURFACE ANTIGEN NON-REACTIVE NON-REACTIVE HEPATITIS B CORE ANTIBODY (IGM) NON-REACTIVE NON-REACTIVE HEPATITIS C ANTIBODY NON-REACTIVE NON-R EACTIVE SIGNAL TO CUT-OFF 0.03 <1.00 LIVER PANEL (LFT) - 01/28/20 08:55 PROTEIN, TOTAL 6.1 g/dL 6.1-8.1 ALBUMIN 3.4 g/dL 3.6-5.1 GLOBULIN 2.7 g/dL (calc) 1.9-3.7 ALBUMIN/GLOBULIN RATIO 1.3 (calc) 1.0-2. 5 BILIRUBIN, TOTAL 1.0 mg/dL 0.2-1.2 ALKALINE PHOSPHATASE 243 U/L 35-144 AST 49 U/L 10-35 ALT 51 U/L 9-46 BILIRUBIN, DIRECT 0.5 mg/dL < OR = 0.2 BILIRUBIN, INDIRECT 0.5 mg/dL (calc) 0.2 -1.2 GGT - 01/28/20 08:55 GGT 326 U/L 3-70 TESTOSTERONE, FREE AND TOTAL - 01/28/20 08:55 TESTOSTERONE, TOTAL, LC/MS/MS 123 ng/dL 250-1100 TESTOSTERONE, FREE 8.1 pg/mL 46.0-224.0 TESTOSTERONE,BIOAVAILABLE 12.8 ng/dL 110 .0-575.0 SEX HORMONE BINDING GLOBULIN 70 nmol/L 2 2-77 Encounters ACCT No. Visit Date/Time Discharge Status Pt. Type Provider Facility Loc./Unit Complaint [id number] 01/26/2020 07:35:00 01/26/2020 23:59:5 9 CLS Outpatient JAYME ESPARZA APRN [facility] [id number] 01/28/2020 08:20:00 Document Registration [id number] 01/26/2020 07:35:00 Document Registration [id number] 12/21/2019 11:00:00 Document Registration [id number] 02/23/2019 10:20:00 Document Registration [id number] 09/10/2018 09:20:00 Document Registration
--- OUTSIDE RECORDS SUMMARY | 2020-02-05 11:09 | XMS REPORT ---
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 985769074 Problem Drug-induced erectile dysfunction N52.2 Active 965333674 Problem Cannabis dependence, uncomplicated F12.20 Active 34271063 Problem Pain in right knee M25.561 Active 3 96230332927833 Problem Anger R45.4 Active 83247919 Problem Wheezing R06.2 Active 94060868 Problem Hx of cervical spine surgery Z98.89 A ctive 764696195 Problem Candidal dermatitis B37.2 Active 91441953 Problem Gastroesophageal reflux disease with esophagitis K 21.0 Active 253820176 Problem Psychophysiological insomnia F51.04 A ctive 557285970 Problem Pure hypercholesterolemia E78.00 Acti ve 052017135 Problem Essential hypertension I10 Active 91064752 Problem Pain in right foot M79.671 Active 4 8585149 Problem Erectile dysfunction, unspecified erectile dysfunction typ e N52.9 Active 316464328 Problem Idiopathic peripheral neuropathy G60.9 Active 90733159 Problem Anxiety disorder, unspecified F41.9 Active 561879049 Problem Unspecified mood [affective] disorder F39 Active 519750113 Problem Low back pain M54.5 Active 754947 005 Problem 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 Active 879012751 Problem Mixed hyperlipidemia E78.2 Active 165107864 Problem Marijuana abuse F12.10 Active 3734 4009 ALLERGIES Unknown Allergies SOCIAL HISTORY No smoking Hx information available PLAN OF CARE VITAL SIGNS MEDICATIONS No Known Medications RESULTS No Results PROCEDURES No Known procedures IMMUNIZATIONS No Known Immunizations
--- OUTSIDE RECORDS SUMMARY | 2020-02-05 11:09 | XMS REPORT ---
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 097026787 Problem Drug-induced erectile dysfunction N52.2 Active 127968342 Problem Cannabis dependence, uncomplicated F12.20 Active 50145023 Problem Pain in right knee M25.561 Active 3 96499142456061 Problem Anger R45.4 Active 56407158 Problem Wheezing R06.2 Active 24663161 Problem Hx of cervical spine surgery Z98.89 A ctive 267189639 Problem Candidal dermatitis B37.2 Active 12008742 Problem Gastroesophageal reflux disease with esophagitis K 21.0 Active 772172971 Problem Psychophysiological insomnia F51.04 A ctive 672326716 Problem Pure hypercholesterolemia E78.00 Acti ve 371377428 Problem Essential hypertension I10 Active 93569207 Problem Pain in right foot M79.671 Active 4 7632239 Problem Erectile dysfunction, unspecified erectile dysfunction typ e N52.9 Active 850659908 Problem Idiopathic peripheral neuropathy G60.9 Active 76895166 Problem Anxiety disorder, unspecified F41.9 Active 854133275 Problem Unspecified mood [affective] disorder F39 Active 555445579 Problem Low back pain M54.5 Active 068257 005 Problem 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 Active 831356891 Problem Mixed hyperlipidemia E78.2 Active 643805766 Problem Marijuana abuse F12.10 Active 3734 4009 [...]
--- OUTSIDE RECORDS SUMMARY | 2020-02-05 11:09 | XMS REPORT ---
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 909756245 Problem Drug-induced erectile dysfunction N52.2 Active 502732891 Problem Cannabis dependence, uncomplicated F12.20 Active 24898910 Problem Pain in right knee M25.561 Active 3 86213755081745 Problem Anger R45.4 Active 99074609 Problem Wheezing R06.2 Active 85264406 Problem Hx of cervical spine surgery Z98.89 A ctive 296427150 Problem Candidal dermatitis B37.2 Active 67381667 Problem Gastroesophageal reflux disease with esophagitis K 21.0 Active 064245771 Problem Psychophysiological insomnia F51.04 A ctive 727513877 Problem Pure hypercholesterolemia E78.00 Acti ve 110308911 Problem Essential hypertension I10 Active 68313515 Problem Pain in right foot M79.671 Active 4 7630624 Problem Erectile dysfunction, unspecified erectile dysfunction typ e N52.9 Active 382977764 Problem Idiopathic peripheral neuropathy G60.9 Active 15344472 Problem Anxiety disorder, unspecified F41.9 Active 901003154 Problem Unspecified mood [affective] disorder F39 Active 865611358 Problem Low back pain M54.5 Active 689217 005 Problem 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 Active 920448684 Problem Mixed hyperlipidemia E78.2 Active 796146030 Problem Marijuana abuse F12.10 Active 3734 4009 ALLERGIES No Information SOCIAL HISTORY Never Assessed PLAN OF CARE VITAL SIGNS MEDICATIONS Medication Instructions Dosage Frequency Start Date End Date Duration S tatus Celexa 20 mg Orally Once a day 1 tablet 24h 30 day(s ) Active RESULTS No Results PROCEDURES No Known [...]
--- OUTSIDE RECORDS SUMMARY | 2020-02-05 11:09 | XMS REPORT ---
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 782098559 Problem Drug-induced erectile dysfunction N52.2 Active 914177383 Problem Cannabis dependence, uncomplicated F12.20 Active 43486122 Problem Pain in right knee M25.561 Active 3 38929114189746 Problem Anger R45.4 Active 09984812 Problem Wheezing R06.2 Active 01719357 Problem Hx of cervical spine surgery Z98.89 A ctive 889303749 Problem Candidal dermatitis B37.2 Active 90460690 Problem Gastroesophageal reflux disease with esophagitis K 21.0 Active 997792104 Problem Psychophysiological insomnia F51.04 A ctive 220273675 Problem Pure hypercholesterolemia E78.00 Acti ve 703801868 Problem Essential hypertension I10 Active 22301683 Problem Pain in right foot M79.671 Active 4 3511250 Problem Erectile dysfunction, unspecified erectile dysfunction typ e N52.9 Active 675772772 Problem Idiopathic peripheral neuropathy G60.9 Active 54311671 Problem Anxiety disorder, unspecified F41.9 Active 119516196 Problem Unspecified mood [affective] disorder F39 Active 656443300 Problem Low back pain M54.5 Active 264086 005 Problem 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 Active 446525473 Problem Mixed hyperlipidemia E78.2 Active 500558544 Problem Marijuana abuse F12.10 Active 3734 4009 ALLERGIES Substance Reaction Event Type Date Status Codeine Sulfate stomach problems Drug Allergy Apr, Active SOCIAL HISTORY Never Assessed PLAN OF CARE Activity Details Follow Up 3 Months Reason:insomnia, ht n VITAL SIGNS Height 66 in 2017-04-15 Weight 210.6 lbs 2017-04-15 Temperature 98.7 degrees Fahrenheit 2017-04-15 Heart Rate 88 bpm 2017-04-15 Respiratory Rate 20 2017-04-15 BMI 33.99 kg/m2 2017-04-15 Blood pressure systolic 122 mmHg 2017-04-15 Blood pressure diastolic 76 mmHg 2017-04-15 MEDICATIONS Medication Instructions Dosage Frequency Start Date End Date Duration S tatus Neurontin 300 MG Orally 3 times a day 1 capsule 8h Active Cyclobenzaprine HCl 10 mg Orally Three times a day 1 tablet as needed 8h Active Proventil HFA 108 (90 Base) MCG/ACT Inhalation every 4 hrs 2 puffs as needed 4h Jun, 30 days Active Norvasc 5 mg Orally Once a day 1 tablet 24h Dec, Active Viagra 50 mg Orally Once a day as needed 2 tablets Active Trazodone HCl 50 MG Orally Once a day 2 tablet at bedtime 24h Apr, 90 days Active Celecoxib 200 mg Orally Once a day 1 capsule 24h Nov, May, 30 days Active Atorvastatin Calcium 10 mg Orally Once a day, voucher 1st fill only 1 tablet Active Celexa 20 mg Orally Once a day 1 tablet 24h 30 days Active RESULTS No Results [...]
[2020-02-05 11:23] LABS: BASOPHILS % (AUTO) 0 % (0-10); EOSINOPHILS # (AUTO) 0.1 10^3/uL (0.0-0.3); EOSINOPHILS % (AUTO) 1 % (0-10); HEMATOCRIT 32 % (40-54); HEMOGLOBIN 10.2 G/DL (13.3-17.7); LYMPHOCYTES # (AUTO) 0.7 X 10^3 (1.0-4.0); LYMPHOCYTES % (AUTO) 10 % (12-44); MEAN CORPUSCULAR HEMOGLOBIN 28 PG (25-34); MEAN CORPUSCULAR HGB CONC 32 G/DL (32-36); MEAN CORPUSCULAR VOLUME 88 FL (80-99); MEAN PLATELET VOLUME 9.9 FL (7.4-10.4); MONOCYTES % (AUTO) 14 % (0-12); NEUTROPHILS # (AUTO) 5.4 X 10^3 (1.8-7.8); NEUTROPHILS % (AUTO) 76 % (42-75); PLATELET COUNT 293 10^3/uL (130-400); RED CELL DISTRIBUTION WIDTH 13.7 % (10.0-14.5); WHITE BLOOD COUNT 7.2 10^3/uL (4.3-11.0)
[2020-02-05 11:33] LABS: ALANINE AMINOTRANSFERASE 88 U/L (0-55); ALKALINE PHOSPHATASE 218 U/L (40-136); AMMONIA 36 UMOL/L (11-32); BILIRUBIN,TOTAL 1.7 MG/DL (0.1-1.0); BUN/CREATININE RATIO 37; CALCIUM 8.3 MG/DL (8.5-10.1); CARBON DIOXIDE 21 MMOL/L (21-32); CHLORIDE 99 MMOL/L (98-107); CREATININE SERUM 1.05 MG/DL (0.60-1.30); GFR ESTIMATED > 60; GLUCOSE 80 MG/DL (70-105); POTASSIUM 4.7 MMOL/L (3.6-5.0); SODIUM 130 MMOL/L (135-145); TOTAL PROTEIN 5.8 GM/DL (6.4-8.2)
--- NOTE | 2020-02-05 11:33 | Diagnostic Imaging Report ---
INDICATION: Near syncopal episode. TIME OF EXAM: 11:19 AM Comparison is made with prior chest from 03/07/2018. The heart size is stable. There is chronic elevation right hemidiaphragm. Minimal right perihilar atelectasis is noted. No significant infiltrate is seen. There is no effusion or pneumothorax. IMPRESSION: Minimal right perihilar atelectasis. Dictated by: Dictated on workstation # [id number]
[2020-02-05 11:34] LABS: INR 1.2 (0.8-1.4); PROTHROMBIN TIME PATIENT 15.4 SEC (12.2-14.7)
[2020-02-05] MEDS ORDERED: NS IV 1000 ML 1,000 ML IV SCH (12:15)
[2020-02-05 13:00] VITALS: BP 104/77
--- NOTE | 2020-02-05 13:08 | History & Physical-Hospitalist ---
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 Patient has been feeling dizzy and light headiness recently also. I have consulted Dr Cooper to assure this isn't anything affiliated with hepatic thrombosis and I will continue to pursue sepsis as source since he has had severe sepsis in the past. Source: patient, RN/MD Exam Limitations: no limitations Date Seen 02/05/20 Time Seen by a Provider: 13:00 Attending Physician Jayleen Brown DO [facility] Referring Physician Date of Admission Feb 05, 2020 at 12:36 Home Medications & Allergies Home Medications Reviewed patient Home Medication Reconciliation performed by pharmacy medication reconciliations auto body repair technician and/or nursing. Patients Allergies have been reviewed. 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) Alcohol Use: Regular Use Alcohol Beverage of Choice: Other Recreational Drug Use: Yes ("KIND OF") Drug of Choice: MARIJUANA Smoking Status: Never a Smoker Recent Foreign Travel: No Contact w/other who traveled: No Recent Hopitalizations: No Recent Infectious Disease Expo: No Immunizations Up To Date Tetanus Booster (TDap): Unknown Date of Influenza Vaccine: Oct 21, 2014 Seasonal Allergies Seasonal Allergies: No Past Medical History Cardiac: High Cholesterol, Hypertension Neurological: Neuropathy Reproductive: No Sexually Transmitted Disease: No HIV/AIDS: No Gastrointestinal: Gastroesophageal Reflux, Cirrhosis liver masses 01/2020 Musculoskeletal: Arthritis History of Blood Disorders: No Adverse Reaction to Blood Cordero: No Family History FH: congestive heart failure 19 MOTHER Myocardial infarction 19 FATHER Heart Disease, CAD Over 55 Years Old Review of Systems Constitutional: see HPI, dizziness, malaise, weakness Gastrointestinal: abdominal pain Physical Exam Physical Exam Vital Signs Vital Signs - First Documented 02/05/20 02/05/20 11:00 13:00 Temp 36.9 Pulse 102 Resp 18 B/P (MAP) 102/73 (83) Pulse Ox 95 O2 Delivery Room Air O2 Flow Rate 2.00 Capillary Refill : Less Than 3 Seconds Height, Weight, BMI Height: 5'7.00" Weight: 198lbs. 0.0oz. 89.915380kh; 31.00 BMI Method:Stated General Appearance: No Apparent Distress, WD/WN, Chronically ill, Other (pale) Eyes: Right Eye Normal Inspection, Right Eye PERRL HEENT: PERRL/EOMI, Normal ENT Inspection, Pharynx Normal, Moist Mucous Membranes Neck: Full Range of Motion, Normal Inspection, Non Tender Respiratory: Chest Non Tender, Lungs Clear, Normal Breath Sounds, No Accessory Muscle Use, No Respiratory Distress Cardiovascular: Regular Rate, Rhythm, No Edema, No Gallop, No JVD, No Murmur, Normal Peripheral Pulses Gastrointestinal: Normal Bowel Sounds, No Organomegaly, No Pulsatile Mass, Non Tender, Soft Back: Normal Inspection, No CVA Tenderness, No Vertebral Tenderness Extremity: Normal Capillary Refill, Normal Inspection, Normal Range of Motion, Non Tender, No Calf Tenderness, No Pedal Edema Neurologic/Psychiatric: Alert, Oriented x3, No Motor/Sensory Deficits, Normal Mood/Affect Skin: Normal Color, Warm/Dry Lymphatic: No Adenopathy Results Results/Procedures Labs Laboratory Tests 02/05/20 11:08 Patient resulted labs reviewed. Assessment/Plan Admission Diagnosis Assessment: Hypotensive episode prior to IR liver biopsy procedure Liver masses Perihilar ATX? adding procalcitonin and repeating lactic acid Excessive ETOH use no use in the past 2-3 weeks per patient HTN HLP Neuropathy Plan: IVF ICU monitoring Consult Dr Lombardo and Dr Cooper Septic r/o Lovenox and SCD's Admission Status: Observation Diagnosis/Problems Diagnosis/Problems (1) Transient hypotension Status: Acute (2) Liver masses Status: Acute (3) Syncope, near Status: Acute (4) Abdominal pain Status: Acute JAYLEEN BROWN DO Feb 05, 2020 13:08
--- OUTSIDE RECORDS SUMMARY | 2020-02-05 13:25 | XMS REPORT ---
Author Author [employer] Organization [employer] Address [address] [address] Care Team Providers Care Senior Process Control Tech Name Role Phone [facility] [employer] [facility] Unavailable [facility] Unavailable RENAE MCKEON Unavailable Allergies No Information [...] Pneumonia (2 Pneumonia Episodic Active COMMUNITY Via [facility] sources.) [address] ([id number]) Other Rhabdomyolysis Episodic Active COMMUNITY Via [facility] connective [place]/[facility] tissue disease [address] [place] [address] (2 sources.) ([id number]) Unclassified no information no information Active COMMUNITY Via [facility] ([address] sources.) [address] ([address]) Past or Other Problems Problem Normalized Date of Normalized Normalized Provider Fac ility Classification Problem(s) Problem Problem Problem Sta tus Onset/Resoluti Duration on Influenza (2 Influenza no information no information COMMUNITY Via [facility] sources.) [address] ([address]) Unclassified Post-discharge no information no information COMMU NITY Via [facility] (1 source.) follow-up [address] ([address]) Procedures Procedure Normalized Procedure Procedure Result Performer Facility Date 03-07-2018 Diagnostic radiography no information ART QUINTERO Via [facility] - of chest, combined [place] ([id number]) 03-07-2018 posteroanterior and - lateral 03-07-2018 03-07-2018 Duplex scan of lower no information ART QUINTERO V ia [facility] - limb veins [place] ([id number]) 03-07-2018 - 03-07-2018 03-06-2018 Electrocardiographic no information EDWIGE T BRUEGG EMANN Via [facility] - procedure [place] ([id number]) 03-06-2018 - 03-06-2018 03-06-2018 Plain chest X-ray no information EDWIGE Vasquez BRUEGGEMA NN Via [facility] ([id number]) 03-06-2018 - 03-06-2018 Immunizations No Information Results Test Name Value Interpretation Reference Range Date Time Fa cility (Normalized) (Normalized) (Medline Reference) No panel information on null no information no information (no code) Via [facility] ([id number]) venous blood hemoglobin measurement (mass/volume) on 2018-03-08 Hemoglobin (HGB) 11.9 g/dL (L) 12 - 18 g/dL Via [facility] ([id number]) serum or plasma urea nitrogen/creatin ine mass ratio on 2018-03-08 BUN/Creatinine 13 mg/mg (no code) 10 - 20 mg/mg Via [facility] ([address]) serum or plasma urea nitrogen measurement (mass/volume) on 2018-03-08 Urea nitrogen 8 mg/dL (no code) 7 - 20 mg/dL Via [facility] ([id number]) serum or plasma total bilirubin measurement (mass/volume) on 2018-03-08 Bilirubin 0.3 mg/dL (no code) 0.3 - 1.9 mg/dL Via [facility] (total) [facility] ([id number]) serum or plasma sodium measurement (moles/volume) on 2018-03-08 Sodium 141 mmol/L (no code) 135 - 147 mmol/L Via [facility] ([address]2009) serum or plasma protein measurement (mass/volume) on 2018-03-08 Protein 7.1 g/dL (no code) 6.4 - 8.3 g/dL Via [facility] ([id number]) serum or plasma potassium measurement (moles/volume) on 2018-03-08 Potassium 4.4 mmol/L (no code) 3.5 - 5.1 mmol/L Via [facility] ([id number]) serum or plasma glucose measurement (mass/volume) on 2018-03-08 Glucose 112 mg/dL (H) 60 - 125 mg/dL Via [facility] (59194) serum or plasma creatinine measurement with calculation of estimated glomerular filtration rate on 2018-03-08 eGFR (non-black) no information (no code) Via [facility] ([address]179) serum or plasma creatinine measurement (mass/volume) on 2018-03-08 Creatinine 0.64 mg/dL (no code) [facility] ([id number]) serum or plasma creatine kinase measurement (enzymatic activity/volume) on 2018-03-08 Creatine kinase 305 U/L (H) Via [facility] (CK) [facility] (33799) serum or plasma chloride measurement (moles/volume) on 2018-03-08 Chloride 107 mmol/L (no code) 95 - 106 mmol/L Via [facility] (57306) serum or plasma calcium measurement (mass/volume) on 2018-03-08 Calcium 9.3 mg/dL (no code) 9 - 11 mg/dL [facility] ([address]) serum or plasma aspartate aminotransferase measurement (enzymatic activity/volume) on 2018-03-08 Aspartate 28 U/L (no code) 10 - 34 U/L Via [facility] (AST) [place] ([id number]) serum or plasma anion gap determination (moles/volume) on 2018-03-08 Anion gap 10 mmol/L (no code) 3 - 11 mmol/L [facility] ([id number]) serum or plasma alkaline phosphatase measurement (enzymatic activity/volume) on 2018-03-08 Alkaline 88 U/L (no code) 44 - 147 U/L Via [facility] (ALP) [place] ([id number]) serum or plasma albumin measurement (mass/volume) on 2018-03-08 Albumin 3.5 g/dL (no code) 3.5 - 5.5 g/dL Via [facility] ([id number]) serum or plasma alanine aminotransferase measurement (enzymatic activity/volume) on 2018-03-08 Alanine 29 U/L (no code) 10 - 40 U/L Via [facility] (ALT) [place] ([id number]) carbon dioxide on 2018-03-08 CO2 24 mmol/L (no code) 23 - 29 mmol/L Via [facility] (03128) blood leukocytes automated count (number/volume) on 2018-03-08 WBC (Leukocytes) 7.8 10*3/uL (no code) 3.8 - 10.8 Via [facility] 10*3/uL [facility] ([id number]) blood hematocrit (volume fraction) on 2018-03-08 Hematocrit (HCT) 36 % (L) 39 - 51 % Via [facility] (620[address]) blood erythrocytes automated count (number/volume) on 2018-03-08 Erythrocytes 3.88 10*6/uL (L) 4.2 - 6.1 Via [facility] (RBC) 10*6/uL [facility] (67342) automated erythrocyte mean corpuscular volume on 2018-03-08 MCV 92 fL (no code) 80 - 100 fL Via [facility] (30785) automated erythrocyte mean corpuscular hemoglobin concentration measurement (mass/volume) on 2018-03-08 MCHC 33 g/dL (no code) 32 - 36 g/dL [facility] (16910) automated erythrocyte mean corpuscular hemoglobin (mass per erythrocyte) on 2018-03-08 MCH 31 pg (no code) 27 - 31 pg [facility] (95617) automated erythrocyte distribution width ratio on 2018-03-08 RDW-CA 13.7 % (no code) 11 - 15 % [facility] (79963) automated blood platelet mean volume measurement on 2018-03-08 Platelet mean 9.5 fL (no code) 7.2 - 11.7 fL Via [facility] (PMV) [facility] (32403) automated blood platelet count (count/volume) on 2018-03-08 Platelets 226 10*3/uL (no code) 150 - 400 Via [facility] 10*3/uL [facility] (19823) blood neutrophils automated count (number/volume) on 2018-03-07 Neutrophils 3.3 10*3/uL (no code) 1.5 - 7.8 Via [facility] 10*3/uL [facility] (43834) blood monocytes/100 leukocytes on 2018-03-07 Monocytes/100 9 % (no code) 2 - 8 % [facility] leukocytes [facility] (68116) blood monocytes automated count (number/volume) on 2018-03-07 Monocytes 0.5 10*3/uL (no code) 0.2 - 1.1 [facility] 10*3/uL [facility] ([id number]) blood lymphocytes automated count (number/volume) on 2018-03-07 Lymphocytes 0.9 10*3/uL (L) 0.85 - 4.1 Via [facility] 10*3/uL [facility] (93314) automated eosinophil count on 2018-03-07 Eosinophils 0.3 10*3/uL (no code) 0.05 - 1.5 [facility] 10*3/uL [facility] (91891) automated blood neutrophils/100 leukocytes on 2018-03-07 Neutrophils/100 65 % (no code) 40 - 60 % Via [facility] leukocytes [facility] (38544) automated blood lymphocytes/100 leukocytes on 2018-03-07 Lymphocytes/100 19 % (no code) 20 - 40 % Via [facility] (63180) automated blood eosinophils/100 leukocytes on 2018-03-07 Eosinophils/100 7 % (no code) 1 - 4 % Via [facility] (36534) automated blood basophils/100 leukocytes on 2018-03-07 Basophils/100 0 % (no code) 0.5 - 1 % Via [facility] leukocytes [facility] (04119) automated blood basophil count (count/volume) on 2018-03-07 Basophils 0.0 10*3/uL (no code) 0 - 0.2 10*3/uL Via [facility] (62540) urine urobilinogen measurement by automated test strip (mass/volume) on 2018-03-06 Urine, 1 (no code) [facility] urobilinogen [facility] (48408) urine total bilirubin detection by test strip on 2018-03-06 Urine, bilirubin no information (no code) Via [facility] (96096) urine protein assay by test strip, semi-quantitativ e on 2018-03-06 Urine, protein no information (no code) Via [facility] (80271) urine ph measurement by test strip on 2018-03-06 Urine, pH 6.5 [pH] (no code) 4.6 - 8 [pH] [facility] (02920) urine nitrite detection by test strip on 2018-03-06 Urine, nitrite no information (no code) Via [facility] (49884) urine ketones detection by automated test strip on 2018-03-06 Urine, ketones no information (no code) Via [facility] (12037) urine glucose detection by automated test strip on 2018-03-06 Urine, glucose no information (no code) Via [facility] (84680) urine color determination on 2018-03-06 Urine, color YELLOW (no code) [facility] (95959) urine clarity determination on 2018-03-06 Urine, clarity SLIGHTLY CLOUDY (no code) [facility] (53754) squamous epithelial cells detection in urine sediment by light microscopy on 2018-03-06 Urine, squamous RARE (no code) [facility] cells [facility] in sediment [place] ([address]) specific gravity of urine by test strip on 2018-03-06 Urine, specific 1.010 (*) [facility] gravity [facility] (97904) serum or plasma troponin i.cardiac measurement (mass/volume) on 2018-03-06 Troponin I no information (no code) [facility] (78708) serum or plasma creatine kinase mb measurement (enzymatic activity/volume) on 2018-03-06 CKMB 33.6 ng/mL (CH) 0 - 2.4 ng/mL [facility] (66411) serum or plasma c reactive protein measurement (mass/volume) on 2018-03-06 C reactive 7.89 mg/L (H) 0 - 1 mg/L [facility] protein (CRP) [facility] (51603) prothrombin time (pt) in platelet poor plasma by coagulation assay on 2018-03-06 Coagulation 13.6 s (no code) [facility] tissue factor [facility] induced [facility] platelet poor (14925) plasma myoglobin, serum on 2018-03-06 Myoglobin 1397.0 ng/mL (H) [facility] (62661) mucus detection in urine sediment by light microscopy on 2018-03-06 Urine, mucus no information (no code) [facility] presence in [facility] sediment [place] ([address]) manual eosinophils/100 leukocytes in nose on 2018-03-06 Eosinophils/100 2 % (no code) 1 - 4 % Via [facility] leukocytes [facility] (08162) manual blood segmented neutrophils/100 leukocytes on 2018-03-06 Segmented 81 % (no code) 35 - 80 % [facility] Neutrophils/100 Hospital leukocytes [place] ([address]263) manual blood lymphocytes/100 leukocytes on 2018-03-06 Lymphocytes/100 7 % (no code) 20 - 40 % Via [facility] leukocytes [facility] (34804) manual blood basophils/100 leukocytes on 2018-03-06 Basophils/100 0 % (no code) 0.5 - 1 % [facility] leukocytes [facility] (35812) leukocyte esterase on 2018-03-06 Urine, leukocyte no information (no code) [facility] esterase [facility] (74462) inr in platelet poor plasma or blood by coagulation assay on 2018-03-06 INR in blood by 1.0 {INR} (no code) 0.9 - 1.1 {INR} Via [facility]risti coagulation [facility] (17125) erythrocytes detection in urine sediment by light microscopy on 2018-03-06 Urine, no information (no code) [facility] erythrocytes [facility] (58602) erythrocyte sedimentation rate by westergren method on 2018-03-06 Erythrocyte 37 mm/h (H) [facility] sedimentation Hospital rate [place] ([address]) crystals detection in urine sediment by light microscopy on 2018-03-06 Urine, crystals NONE (no code) [facility] presence in [facility] sediment [place] ([address]58) complete urinalysis with reflex to culture on 2018-03-06 Complete NO (no code) [facility] urinalysis with Hospital reflex to [place] culture ([id number]) casts detection in urine sediment by light microscopy on 2018-03-06 Urine, casts in NONE (no code) Via [facility] (21086) blood monocytes/100 leukocytes on 2018-03-06 Monocytes/100 6 % (no code) 2 - 8 % [facility] leukocytes [facility] (17298) blood lactic acid measurement (moles/volume) on 2018-03-06 Lactate 1.73 mmol/L (no code) 0.5 - 2.2 mmol/L Via [facility] sti [facility] (01358) blood erythrocyte morphology finding identification on 2018-03-06 Erythrocyte NORMAL (no code) [facility] morphology [facility] (09858) blood band neutrophils/100 leukocytes on 2018-03-06 Neutrophils 4 % (no code) 0 - 3 % [facility] band/100 Hospital leukocytes [place] (25366) bacterial blood culture on 2018-03-06 Bacteria culture No growth (no code) [facility] (73518) bacteria detection in urine sediment by light microscopy on 2018-03-06 Urine, bacteria no information (no code) [facility] in [facility] ([id number]) automated urine sediment leukocyte count by microscopy (number/high power field) on 2018-03-06 Urine, RARE (no code) [facility] leukocytes [facility] automated urine sediment erythrocyte count by microscopy (number/high power field) on 2018-03-06 Urine, RARE (no code) [facility] erythrocytes in Hospital sediment [facility] (70551) activated partial thromboplastin time (aptt) in platelet poor plasma bycoagulation assay on 2018-03-06 aPTT 28 s (no code) 25 - 35 s Via [facility] ([id number]) Vital Signs The data below is from unstructured sources Vital Response Date/Time Temperature (Fahrenheit) 99.1 degree s F (97.6 - 99.5) 05/31/2017 11:45am Temperature (Calculated Celsius) 37. 89335 degrees C (36.4 - 37.5) 05/31/2017 8:56am [...] inches 05/29/2017 2:01am Height (Calculated Centimeters) 172. 645447 cm 05/29/2017 2:01am Weight (Pounds) 212 pounds 05/29/2017 2:01am Weight (Ounces) 0.0 oz 0 05/29/2017 2:01am Weight (Calculated Grams) 24331.58 gm 05/29/2017 2:01am Weight (Calculated Kilograms) 96.161 583 kilograms 05/29/2017 2:01am Calculated BMI 32.2 05/11 2:01am Capillary Refill Capillary Refill Less Than 3 Seconds 05/29/2017 1:27am Vital Response Date/Time Temperature (Fahrenheit) 98.5 degree s F (97.6 - 99.5) 03/08/2018 4:33pm Temperature (Calculated Celsius) 36. 04408 degrees C (36.4 - 37.5) 03/08/2018 4:33pm [...] inches 03/06/2018 6:02pm Height (Calculated Centimeters) 170. 797039 cm 03/06/2018 6:02pm Weight (Pounds) 198 pounds 03/06/2018 6:02pm Weight (Ounces) 0.0 oz 0 03/06/2018 6:02pm Weight (Calculated Grams) 71451.29 gm 03/06/2018 6:02pm Weight (Calculated Kilograms) 89.811 290 kilograms 03/06/2018 6:02pm Calculated BMI 31.0 02/10 6:02pm Weight Method Stated 9:19am Weight Measurement Method Built in Infusion Medical e 03/06/2018 6:02pm Capillary Refill Capillary Refill [...] No Information Payers Normalized Payer Value Unknown [id number]) Advance Directives Directive Response Recor ded Date/Time Advance Directives No 1:43am Health Care Power of Metal Loader No 05/28/17 9:23pm Organ Donor No 05/28/17 9:23pm Resuscitation Status Full Code 05/29/17 1:43am Directive Response Recor ded Date/Time Advance Directives No 5:54pm Health Care Power of Metal Loader No 03/06/18 5:54pm Organ Donor No 03/06/18 5:54pm Resuscitation Status Full Code 03/06/18 5:54pm Directive Response Recor ded Date/Time Advance Directives No 5:54pm Health Care Power of Metal Loader No 03/06/18 5:54pm Organ Donor No 03/06/18 [...] This clinical document has been generated using [employer] software that has been certified by the Office of the National Coordinator for Health Information Technology (ONC 15.99.04.3023.Diam.31.00.0.727565) and the National Committee for Postage Machine Operator (NCQA, as an eMeasure certified technology). FOR [...] BASED ON T HE PRIMARY CLINICAL RECORDS. [facility] [employer] [facility]. provides no warranty or guara ntee of the accuracy or completeness of information in this document.The followi information is based on time limited clinical information
--- OUTSIDE RECORDS SUMMARY | 2020-02-05 13:32 | XMS REPORT | Continuity of Care Document ---
[...] 7-25 CREATININE 0.87 mg/dL 0.70-1.25 eGFR NON-AFR. BURUN[place] 94 mL/min/1.73m2 > OR = 60 eGFR [...] Status Pt. Type Provider Facility Loc./Unit Complaint [id number] 01/26/2020 07:35:00 01/26/2020 23:59:5 9 CLS Outpatient JAYME ESPARZA APRN [facility] [id number] 01/28/2020 08:20:00 Document Registration [id number] 01/26/2020 07:35:00 Document Registration [id number] 12/21/2019 11:00:00 Document Registration [id number] 02/23/2019 10:20:00 Document Registration [id number] 09/10/2018 09:20:00 Document Registration
[2020-02-05 14:00] VITALS: BP 107/68
[2020-02-05] MEDS ORDERED: RT-ALBUINH IH (14:19)
[2020-02-05] MEDS ORDERED: OXYC-529 PO (14:19)
[2020-02-05] MEDS ORDERED: TRM50T PO (14:19)
[2020-02-05] MEDS ORDERED: LISI-552 PO (14:19)
[2020-02-05] MEDS ORDERED: MELO7.5T46 PO (14:19)
[2020-02-05] MEDS ORDERED: OMEP-254 PO (14:19)
--- NOTE | 2020-02-05 14:21 | NUR ---
SPOKE WITH THE PT AND HAD A MED LIST FAXED FROM [facility] TO COMPLETE THE MED REC I WILL ATTACH A COPY OF THE MED LIST TO HIS CHART THE FOLLOWING ARE FILL DATES: 12-21-2019 TRAMADOL 50MG #60 12-31-2019 LISINOPRIL 20MG #90/90DS 01-26-2020 OMEPRAZOLE 20MG #30/30DS 01-26-2020 PROAIR #1 01-28-2020 AMLODIPINE 5MG #90/90DS 01-28-2020 CYCLOBENZAPRINE 10MG #90/30DS 01-28-2020 MELOXICAM 7.5MG #180/90DS 02-02-2020 OXYCODONE 5MG #40 OTC MEDS: NONE Addendum: 02/05/20 at 1440 by ROBERT SHELTON cementer oil well PT ALSO TAKES METFORMIN 500MG- WAS LAST FILLED ON 09-16-2019 #180. THE DIRECTIONS ARE 1 TAB BID, HOWEVER THE PT SAYS HE RARELY TAKES THE EVENING DOSE BUT TRIES TO ALWAYS TAKE THE MORNING DOSE
[2020-02-05] MEDS ORDERED: CATHETER FLUSH 10 ML SYR IV PRN (14:30)
[2020-02-05] MEDS ORDERED: METF-397 PO (14:38)
[2020-02-05] MEDS: NS IV 1000 ML 1,000 ML IV SCH (15:37)
[2020-02-05 16:00] VITALS: BP 99/66
[2020-02-05] MEDS ORDERED: DOCUSATE SODIUM 100 MG (COLACE) CAP PO PRN (16:15)
[2020-02-05] MEDS ORDERED: ONDANSETRON 4 MG/2 ML (SDV) Z0FRAN IVP PRN (16:15)
[2020-02-05] MEDS ORDERED: diphenhydrAMINE 25 MG TAB (BENADRYL) PO PRN (16:15)
[2020-02-05] MEDS ORDERED: LOPERAMIDE 2 MG (IMODIUM) TABLET PO PRN (16:15)
[2020-02-05] MEDS ORDERED: ACETAMINOPHEN 500 MG TAB (TYLENOL) PO PRN (16:15)
[2020-02-05] MEDS ORDERED: CALCIUM CARBONATE 500 MG (TUMS) TAB.CHEW PO PRN (16:15)
[2020-02-05] MEDS ORDERED: ONDANSETRON 4 MG (ZOFRAN) ORAL DISSOLVE TAB PO PRN (16:15)
[2020-02-05] MEDS ORDERED: 1/2 NS IV SOLUTION 1,000 ML IV PRN (16:36)
[2020-02-05] MEDS ORDERED: ANTACID SUSP 30 ML UDC (MYLANTA) PO PRN (16:45)
[2020-02-05] MEDS ORDERED: LORazepam INJ 2 MG/ML (ATIVAN) VIAL IM/IV PRN (16:45)
[2020-02-05] MEDS ORDERED: LORazepam 1 MG (ATIVAN) TAB PO PRN (16:45)
[2020-02-05] MEDS ORDERED: D5 1/2 NS 1000 ML IV SOLUTION 1,000 ML IV PRN (16:45)
[2020-02-05] MEDS ORDERED: LORazepam INJ 2 MG/ML (ATIVAN) VIAL IV PRN (16:45)
[2020-02-05] MEDS ORDERED: ONDANSETRON 4 MG/2 ML (SDV) Z0FRAN IV PRN (16:45)
[2020-02-05] MEDS ORDERED: ONDANSETRON 4 MG (ZOFRAN) ORAL DISSOLVE TAB SL PRN (16:45)
[2020-02-05] MEDS: ENOXAPARIN 40 MG/0.4 ML (LOVENOX) SYR SC SCH (17:00)
[2020-02-05] MEDS ORDERED: VANCOMYCIN INJECTION 0.1 MG in NS (IVPB) 250 ML IV SCH (17:15)
[2020-02-05] MEDS ORDERED: NS IV ONE (17:15)
[2020-02-05 17:23] LABS: INR 1.2 (0.8-1.4); PROTHROMBIN TIME PATIENT 15.6 SEC (12.2-14.7)
[2020-02-05] MEDS ORDERED: PIPERACILLIN/TAZO 4.5 GM/NS 100 ML IV ONE ×2 (17:30)
--- NOTE | 2020-02-05 17:41 | Diagnostic Imaging Report ---
Clinical indication: Patient with severe sepsis and ATX before fluids in the ER. Exam: Portable chest x-ray upright view. Comparisons: Chest x-ray dated 02/05/2020 at 1119 hours. Findings: Again noted elevated right hemidiaphragm. There is development of subtle airspace opacities in the left lung base which may represent atelectasis, but infiltrate cannot be completely excluded. Stable minimal airspace opacity in the right midlung field noted which may represent atelectasis. Pulmonary vasculature and cardiac silhouette are within normal limits. There are hypertrophic spurs involving the thoracic spine. The remainder of this exam shows no significant interval change compared to the prior study of comparison. IMPRESSION: 1: There is interval development of minimal left lung base airspace opacity suspected to represent atelectasis, but superimposed infiltrate cannot be completely excluded. 2: Otherwise, there is no significant interval change in the chest x-ray exam. Dictated by: Dictated on workstation # [id number]
[2020-02-05] MEDS ORDERED: VANCOMYCIN 1,750 MG/NS 500 ML IVPB IV NR ×2 (18:00)
[2020-02-05 18:09] LABS: ABG BASE EXCESS -3.1 MMOL/L (-2.5-2.5); ABG OXYGEN SATURATION 96 % (94-100); ABG PCO2 30 MMHG (35-45); ABG PH 7.44 (7.37-7.43); ABG PO2 70 MMHG (79-93); ABG TCO2 21.5 MMOL/L (21.0-31.0)
[2020-02-05 18:10] LABS: ALLENS TEST POSITIVE; PATIENT TEMP 35.8; VENTILATOR NO
--- NOTE | 2020-02-05 19:05 | CONSULTATION REPORT ---
DATE OF SERVICE: 02/05/2020 ADMITTING PHYSICIAN: Dr. Avilez. ATTENDING SURVEY SUPERVISOR: Pawan Orona APRN HISTORY OF PRESENT ILLNESS: The patient is a 59-year-old male who was scheduled for a CT-guided biopsy of liver lesions of unknown diagnosis or etiology. He was brought to the procedure room in radiology; however, did have a hypotensive episode, which sounds to be vasovagal. The procedure was canceled. The patient was admitted for observation and cardiology consulted as well as general surgery. PAST MEDICAL HISTORY: Hypertension, hypercholesterolemia, neuropathy, gastroesophageal reflux disease, liver cirrhosis, liver mass diagnosed by CT scan in 02/2020. PAST SURGICAL HISTORY: None. ALLERGIES: CODEINE. MEDICATIONS: Albuterol q.4 hours p.r.n., amlodipine 5 mg daily, cyclobenzaprine 10 mg daily, lisinopril 20 mg daily, meloxicam 7.5 mg daily, metformin 500 mg daily, omeprazole 20 mg daily, oxycodone 5 mg daily, tramadol 50 mg p.r.n. SOCIAL HISTORY: Negative smoke, daily alcohol. Does use recreational THC. FAMILY HISTORY: Mother, congestive heart failure. Father, coronary artery disease. VITAL SIGNS: Temperature 36.0, blood pressure 99/66, pulse 79, respirations 14, pulse ox 92% on 2 liters nasal cannula. REVIEW OF SYSTEMS: A well-nourished male currently in no acute distress. He is not experiencing any shortness of breath or difficulty breathing. No chest pain, palpitations, diaphoresis. No nausea, vomiting. No diarrhea or constipation. No recent inadvertent weight loss. No fever or chills. All other review of systems negative. PHYSICAL EXAMINATION: CHEST: A few scattered rales bilaterally. HEART: Regular, no murmurs. EXTREMITIES: No lower extremity edema, negative Homans sign. HEENT: No scleral icterus. NECK: No cervical lymphadenopathy. ABDOMEN: Soft, slightly distended. There is a mild fluid shift wave. SKIN: Warm, dry. LABORATORY DATA: WBC 7.2, hemoglobin 10.2, hematocrit 32, platelets 293, BUN 39, creatinine 1.05. Total bilirubin 1.7, AST 116, ALT 88, alkaline phosphatase 218. ASSESSMENT AND PLAN: A 59-year-old male with large multiple liver lesions of unknown etiology. If he would like to proceed with further workup, we will start off with an EGD and colonoscopy to evaluate his upper and lower gastrointestinal tract. Once stable, he will also need to have a tissue diagnosis and again we rescheduled for CT-guided percutaneous biopsy. Job ID: [id number] DocumentID: [id number] Dictated Date: 02/05/2020 18:53:36 Electric Razor Assembler Date: 02/05/2020 19:04:29 Dictated By: HEATH MAHAN MD
[2020-02-05 20:00] VITALS: BP 109/69
[2020-02-05] MEDS: SENNA W/DOCUSATE (SENOKOT S) TABLET PO SCH (20:08)
[2020-02-05] MEDS: HYDROcodone/APAP 5 MG/325 MG (LORTAB) TAB PO PRN ×2 (20:17→23:45)
[2020-02-05 20:28] LABS: BILIRUBIN,URINE NEGATIVE (NEGATIVE); CLARITY,URINE CLEAR; COLOR,URINE YELLOW; GLUCOSE, URINE (UA) NEGATIVE (NEGATIVE); KETONES,URINE NEGATIVE (NEGATIVE); LEUKOCYTE ESTERASE ,URINE NEGATIVE (NEGATIVE); NITRITE,URINE NEGATIVE (NEGATIVE); PROTEIN,URINE NEGATIVE (NEGATIVE)
[2020-02-05 21:38] LABS: AMORPHOUS SEDIMENT,UR RARE AMOR URATES /LPF; BACTERIA,URINE TRACE /HPF
[2020-02-05] MEDS: PIPERACILLIN/TAZOBACTAM (BULK) 4.5 GM in NS (IVPB) 100 ML IV SCH (23:45)
[2020-02-05] MEDS: ALPRAZolam 0.25 MG (XANAX) TAB PO PRN (23:45)
[2020-02-06] VITALS (7 sets, daily range): BP systolic 107–129; BP diastolic 52–81
[2020-02-06] MEDS: NS IV 1000 ML 1,000 ML IV SCH ×2 (01:45→11:36)
--- NOTE | 2020-02-06 01:58 | NUR ---
Pt agitated throughout night, frustrated with cords/IV etc, voiced frustration multiple times. Therapeutic communication attempted multiple times, this RN making frequent rounding, attempting to anticipate needs. SCD's removed per pt request, pt transferred to a different bed with controllers he could reach, etc. Will continue to monitor closely.
[2020-02-06 02:47] LABS: BASOPHILS % (AUTO) 0 % (0-10); EOSINOPHILS # (AUTO) 0.2 10^3/uL (0.0-0.3); EOSINOPHILS % (AUTO) 4 % (0-10); HEMATOCRIT 29 % (40-54); HEMOGLOBIN 9.6 G/DL (13.3-17.7); LYMPHOCYTES # (AUTO) 0.6 X 10^3 (1.0-4.0); LYMPHOCYTES % (AUTO) 10 % (12-44); MEAN CORPUSCULAR HEMOGLOBIN 29 PG (25-34); MEAN CORPUSCULAR HGB CONC 33 G/DL (32-36); MEAN CORPUSCULAR VOLUME 89 FL (80-99); MEAN PLATELET VOLUME 10.1 FL (7.4-10.4); MONOCYTES # (AUTO) 0.9 X 10^3 (0.0-1.0); MONOCYTES % (AUTO) 15 % (0-12); NEUTROPHILS # (AUTO) 4.3 X 10^3 (1.8-7.8); NEUTROPHILS % (AUTO) 71 % (42-75); PLATELET COUNT 234 10^3/uL (130-400); RED CELL DISTRIBUTION WIDTH 13.4 % (10.0-14.5)
[2020-02-06 03:12] LABS: ALANINE AMINOTRANSFERASE 73 U/L (0-55); ALBUMIN 2.7 GM/DL (3.2-4.5); ALKALINE PHOSPHATASE 223 U/L (40-136); BILIRUBIN,TOTAL 1.2 MG/DL (0.1-1.0); BUN/CREATININE RATIO 25; CALCIUM 7.4 MG/DL (8.5-10.1); CARBON DIOXIDE 17 MMOL/L (21-32); CHLORIDE 104 MMOL/L (98-107); CREATININE SERUM 0.69 MG/DL (0.60-1.30); GFR ESTIMATED > 60; GLUCOSE 97 MG/DL (70-105); POTASSIUM 4.4 MMOL/L (3.6-5.0); SODIUM 131 MMOL/L (135-145); TOTAL PROTEIN 5.2 GM/DL (6.4-8.2)
[2020-02-06] MEDS: VANCOMYCIN 1250 MG/NS 250 ML IVPB IV SCH ×4 (05:44→18:01)
[2020-02-06] MEDS: HYDROcodone/APAP 5 MG/325 MG (LORTAB) TAB PO PRN (07:48)
[2020-02-06] MEDS: PIPERACILLIN/TAZOBACTAM (BULK) 4.5 GM in NS (IVPB) 100 ML IV SCH ×3 (07:48→23:37)
[2020-02-06] MEDS: SENNA W/DOCUSATE (SENOKOT S) TABLET PO SCH ×2 (07:48→20:27)
--- NOTE | 2020-02-06 10:21 | Progress Note - Hospitalist ---
Subjective HPI/CC On Admission Date Seen by Provider: Feb 06, 2020 Time Seen by Provider: 10:20 CC: Hypotension prior to CT guided liver biopsy today in IR HPI: This is a 59yoWM clinic patient of Pawan Orona at [facility] who was recently diagnosed last month with liver masses of unknown primary since presumed cancerous who presented to the ER following a hypotensive episode prior to IR procedure and was assessed and r/o sepsis so I consulted Cardiology and Dr Cooper in evaluating the source of the low BP. Patient has been feeling dizzy and light headiness recently also. I have consulted Dr Cooper to assure this isn't anything affiliated with hepatic thrombosis and I will continue to pursue sepsis as source since he has had severe sepsis in the past. Subjective/Events-last exam Patient doing much better A bit lethargic still Right abdominal pain still remains Severe sepsis IVF initiated yesterday Abx maintained Spoke to eicu doctor in-depth Review of Systems General: Fatigue Gastrointestinal: Abdominal Pain Focused Exam Lactate Level 02/05/20 23:36: Lactic Acid Level 2.22*H 02/06/20 02:28: Lactic Acid Level 2.50*H 02/06/20 04:49: Lactic Acid Level 1.92 Objective Exam Vital Signs Vital Signs Date Time Temp Pulse Resp B/P (MAP) Pulse Ox O2 Delivery O2 Flow Rate FiO2 02/06/20 12:00 35.9 104 27 129/52 (77) 96 Room Air 02/05/20 16:00 2.00 Capillary Refill : Less Than 3 Seconds General Appearance: No Apparent Distress, WD/WN, Chronically ill Respiratory: Chest Non Tender, Lungs Clear, Normal Breath Sounds, No Accessory Muscle Use, No Respiratory Distress, Decreased Breath Sounds Neurologic/Psychiatric: Alert, Oriented x3, No Motor/Sensory Deficits, Normal Mood/Affect Skin: Normal Color, Warm/Dry Results/Procedures Lab Laboratory Tests 02/06/20 02:28 Patient resulted labs reviewed. Assessment/Plan Assessment and Plan Assess & Plan/Chief Complaint Assessment: Hypotensive episode prior to IR liver biopsy procedure now assessed to be severe sepsis from PNA that became apparent after IVF given which ER ordered Liver masses Perihilar ATX? added procalcitonin and repeating lactic acid after admit and both were elevated confirming severe sepsis abx were empirically started Excessive ETOH use no use in the past 2-3 weeks per patient HTN HLP Neuropathy Plan: IVF ICU monitoring once stable will move to 4th floor Consult Dr Lombardo and Dr Cooper are appreciated Septic treatment Lovenox and SCD's Diagnosis/Problems Diagnosis/Problems (1) Severe sepsis Status: Acute (2) Pneumonia (3) Transient hypotension Status: Acute (4) Liver masses Status: Acute (5) Syncope, near Status: Acute (6) Abdominal pain Status: Acute Clinical Quality Measures DVT/VTE Risk/Contraindication: Risk Factor Score Per Nursin RFS Level Per Nursing on Admit: 2=Moderate DIPESH BROWN DO Feb 06, 2020 10:21
[2020-02-06] MEDS: RT-ALBUTEROL SULF 2.5 MG/3 ML PRE-MIX VIAL INH SCH ×3 (10:29→21:38)
[2020-02-06] MEDS ORDERED: CYCLOBENZAPRINE 10 MG (FLEXERIL) TAB PO PRN (11:00)
[2020-02-06] MEDS ORDERED: PANTOPRAZOLE 40 MG (PROTONIX) VIAL IV ONE (11:00)
--- NOTE | 2020-02-06 11:24 | Progress Note ---
Subjective Date Seen by a Provider: Feb 06, 2020 Time Seen by a Provider: 11:00 Subjective/Events-last exam doing better today. states has had body aches/fatigue on an intermittent basis for past month. multiple large liver lesions and likely metastatic disease. Focused Exam Lactate Level 02/05/20 23:36: Lactic Acid Level 2.22*H 02/06/20 02:28: Lactic Acid Level 2.50*H 02/06/20 04:49: Lactic Acid Level 1.92 Objective Exam Vital Signs Date Time Temp Pulse Resp B/P (MAP) Pulse Ox O2 Delivery O2 Flow Rate FiO2 02/06/20 10:30 92 Room Air 02/06/20 08:15 95 Room Air 02/06/20 08:00 37.3 109 23 110/71 (84) 92 Room Air 02/06/20 07:00 106 02/06/20 04:00 107 17 107/68 (81) 93 Room Air 02/06/20 04:00 Room Air 02/06/20 01:00 107 02/06/20 00:00 Room Air 02/06/20 00:00 97 16 111/69 (83) 91 Room Air 02/05/20 20:00 36.2 90 20 109/69 (82) 95 02/05/20 20:00 Room Air 02/05/20 19:00 91 02/05/20 18:42 92 Room Air 02/05/20 16:00 99 14 99/66 (77) 92 Nasal Cannula 2.00 02/05/20 16:00 36.0 02/05/20 16:00 92 Nasal Cannula 2.00 02/05/20 14:04 87 02/05/20 14:00 36.9 90 20 107/68 95 Room Air 2.00 2.00 02/05/20 14:00 Nasal Cannula 1.00 02/05/20 13:13 90 20 107/68 95 Room Air 02/05/20 13:00 93 15 104/77 (86) 94 Nasal Cannula 2.00 I & O 02/06/20 07:00 Intake Total 6597.5 ml Output Total 3525 ml Balance 3072.5 ml Capillary Refill : Less Than 3 Seconds General Appearance: No Apparent Distress HEENT: PERRL/EOMI Neck: Full Range of Motion Respiratory: Chest Non Tender, Lungs Clear Cardiovascular: Regular Rate, Rhythm Gastrointestinal: non tender, soft Extremity: Normal Capillary Refill Neurologic/Psychiatric: Alert, Oriented x3 Skin: Normal Color Lymphatic: No Adenopathy Results Lab Laboratory Tests 02/05/20 12:42: Lactic Acid Level 1.86 02/05/20 16:27: Lactic Acid Level 2.46*H, Procalcitonin 0.54H, Serum Alcohol < 10 02/05/20 17:00: Prothrombin Time 15.6H, INR Comment 1.2, Activated Partial Thromboplast Time 38H 02/05/20 18:04: Blood Gas Puncture Site RIGHT RADIAL, Blood Gas Patient Temperature 35.8, Arterial Blood pH 7.44H, Arterial Blood Partial Pressure CO2 30L, Arterial Blood Partial Pressure O2 70L, Arterial Blood HCO3 21L, Arterial Blood Total CO2 21.5, Arterial Blood Oxygen Saturation 96, Arterial Blood Base Excess -3.1L, Sarkis Test POSITIVE, Blood Gas Ventilator Setting NO, Blood Gas Inspired Oxygen 2% 02/05/20 18:35: Lactic Acid Level 2.65*H 02/05/20 20:21: Urine Color YELLOW, Urine Clarity CLEAR, Urine pH 6.0, Urine Specific [place] 1.025H, Urine Protein NEGATIVE, Urine Glucose (UA) NEGATIVE, Urine Ketones NEGATIVE, Urine Nitrite NEGATIVE, Urine Bilirubin NEGATIVE, Urine Urobilinogen 2.0, Urine Leukocyte Esterase NEGATIVE, Urine RBC (Auto) NEGATIVE, Urine RBC NONE, Urine WBC NONE, Urine Crystals PRESENTH, Urine Amorphous Sediment RARE ALEX URATESH, Urine Bacteria TRACE, Urine Casts NONE, Urine Mucus NEGATIVE, Urine Culture Indicated NO 02/05/20 21:13: Lactic Acid Level 2.23*H 02/05/20 23:36: Lactic Acid Level 2.22*H 02/06/20 02:28: White Blood Count 6.0, Red Blood Count 3.30L, Hemoglobin 9.6L, Hematocrit 29L, Mean Corpuscular Volume 89, Mean Corpuscular Hemoglobin 29, Mean Corpuscular Hemoglobin Concent 33, Red Cell Distribution Width 13.4, Platelet Count 234, Mean Platelet Volume 10.1, Neutrophils (%) (Auto) 71, Lymphocytes (%) (Auto) 10L , Monocytes (%) (Auto) 15H, Eosinophils (%) (Auto) 4, Basophils (%) (Auto) 0, Neutrophils # (Auto) 4.3, Lymphocytes # (Auto) 0.6L, Monocytes # (Auto) 0.9, Eosinophils # (Auto) 0.2, Basophils # (Auto) 0.0, Sodium Level 131L, Potassium Level 4.4, Chloride Level 104, Carbon Dioxide Level 17L, Anion Gap 10, Blood Urea Nitrogen 17, Creatinine 0.69, Estimat Glomerular Filtration Rate > 60, BUN/Creatinine Ratio 25, Glucose Level 97, Lactic Acid Level 2.50*H, Calcium Level 7.4L, Corrected Calcium 8.4L, Total Bilirubin 1.2H, Aspartate Amino Transf (AST/SGOT) 91H, Alanine Aminotransferase (ALT/SGPT) 73H, Alkaline Phosphatase 223H, Total Protein 5.2L, Albumin 2.7L 02/06/20 04:49: Lactic Acid Level 1.92 Assessment/Plan Assessment/Plan Assess & Plan/Chief Complaint metastatic liver lesions. has never had a colonoscopy. patient now appears asymptomatic. will transfer to floor. agree with tx for sepsis. regular diet. will schedule colonoscopy as OP after prep. Clinical Quality Measures DVT/VTE Risk/Contraindication: Risk Factor Score Per Nursin RFS Level Per Nursing on Admit: 2=Moderate HEATH MAHAN MD Feb 06, 2020 11:24
[2020-02-06] MEDS: ENOXAPARIN 40 MG/0.4 ML (LOVENOX) SYR SC SCH (15:26)
--- NOTE | 2020-02-06 16:53 | NUR ---
REPORT RECEIVED FROM MICHELLE QUIROGA IN ICU. PT TRANSFERRED TO ROOM 420. PT INTRODUCED TO ROOM AND CALL LIGHT. THIS RN ASSUMED CARE AT THIS TIME.
--- NOTE | 2020-02-06 16:58 | NUR ---
PT TO 4TH FLOOR VIA W/C ALL PERSONAL BELONGINGS SENT WITH PT. REPORT GIVEN TO CASIE MARTINEZ PRIOR TO TRANSFER.
--- NOTE | 2020-02-06 17:35 | Consultation-Cardiology ---
HPI-Cardiology Cardiology Consultation: Date of Consultation 02/06/20 Date of Admission Attending Physician Jayleen Avilez DO Admitting Physician [facility] Consulting Physician Catherine LOMBARDO MD HPI: Time Seen by a Provider: 11:30 Chief Complaint: Hypotension This is a 59-year-old gentleman with history of significant alcohol abuse. The patient has had elevated liver function test and required a CT scan which showed large mass in the liver. Outpatient liver biopsy was recommended. There is concern for metastatic disease. Just before the biopsy is a patient became hypotensive. He is blood pressure was 82/68. He was brought to the ER. He was a little bit lethargic he did not complain of any significant chest pain or shortness of breath. He does not have any cardiac history. No pertinent family history. Review of Systems-Cardiology Review of Systems Constitutional: As described under HPI; No As described under HPI, No no symptoms reported, No chills, No fever, No lightheadedness Eyes: No As described under HPI, No no symptoms reported, No blindness, No blurred vision, No contact lenses, No drainage, No decreased acuity, No foreign body sensation, No pain, No vision change Ears/Nose/Throat: No As described under HPI, No no symptoms reported, No chronic hearing loss, No ear discharge, No ear pain, No nasal drainage, No ulcerations Respiratory: No no symptoms reported; As described under HPI; No As described under HPI, No cough, No orthopnea, No shortness of breath, No SOB with excertion Cardiovascular: No no symptoms reported; As described under HPI; No As desc ribed under HPI, No chest pain, No edema, No irregular heart rate, No lightheadedness, No palpitations Gastrointestinal: No no symptoms reported, No As described under HPI, No abdomen distended, No abdominal pain, No blood streaked bowels, No constipation, No diarrhea, No nausea, No vomiting, No stool coloration changes Genitourinary: No As described under HPI, No burning, No dysuria, No discharge, No frequency, No flank pain, No hematuria, No urgency Skin: No rash, No skin related problems, No ulcerations Psychiatric/Neurological: No anxiety, No depression, No seizure, No focal weakness, No syncope Hematologic: No bleeding abnormalities EOE-Kewiaq-Syjkye Hx Patient Social History Marrital Status: single 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 Family Medical History Family History: FH: congestive heart failure 19 MOTHER Myocardial infarction 19 FATHER Allergies and Home Medications Allergies Coded Allergies: codeine (Verified Allergy, Unknown, Pt has received Lortab & morphine in the past, 05/30/17) Home Medications Albuterol Sulfate 1 Puff Puff, 2 PUFF IH Q4H PRN for SHORTNESS OF BREATH, (Reported) 1 PUFF = 90 MCG Amlodipine Besylate 5 Mg Tablet, 5 MG PO DAILY, (Reported) Cyclobenzaprine HCl 10 Mg Tablet, 10 MG PO TID PRN for MUSCLE SPASMS, (Reported) Lisinopril 20 Mg Tablet, 20 MG PO DAILY, (Reported) Meloxicam 7.5 Mg Tablet, 7.5 MG PO BID, (Reported) Metformin HCl 500 Mg Tablet, 500 MG PO DAILY, (Reported) Omeprazole Magnesium 20 Mg Capsule.dr, 20 MG PO DAILY, (Reported) Oxycodone HCl 5 Mg Tablet, 5-10 MG PO Q4H PRN for PAIN-SEVERE (8-10), (Reported) Tramadol HCl 50 Mg Tablet, 50 MG PO BID PRN for PAIN-MODERATE (5-7), (Reported) Patient Home Medication List Home Medication List Reviewed: Yes Physical Exam-Cardiology Physical Exam Vital Signs/I&O 02/06/20 02/06/20 02/06/20 02/06/20 07:00 08:00 08:15 10:30 Temp 37.3 Pulse 106 109 Resp 23 B/P (MAP) 110/71 (84) Pulse Ox 92 95 92 O2 Delivery Room Air Room Air Room Air 02/06/20 02/06/20 02/06/20 02/06/20 12:00 14:45 16:00 16:56 Temp 35.9 36.4 36.4 Pulse 104 102 97 Resp 27 22 20 B/P (MAP) 129/52 (77) 114/81 (92) 118/75 (89) Pulse Ox 96 92 97 95 O2 Delivery Room Air Room Air Room Air Room Air 02/06/20 00:00 Intake Total 2177.5 ml Output Total 1925 ml Balance 252.5 ml Capillary Refill : Less Than 3 Seconds Constitutional: appears stated age; No apparent distress; well-developed, well- nourished HEENT: PERRL; No discharge; hearing is well preserved, oral hygience is good; No ulceration, No xanthelasmas are seen Neck: No carotid bruit; carotid pulses are 2 + bilaterally Respiratory: chest is bilaterally symmetric, lungs clear to auscultation Cardiovascular: regular rate-rhythm Gastrointestinal: round, audible bowel sounds; No spleenomegaly Rectal: deferred Extremities: normal range of motion, non-tender, normal inspection; No clubbing, No cyanosis; no lower extremity edema bilateral; No significant edema Neurologic/Psychiatric: no motor/sensory deficits, alert, normal mood/affect, oriented x 3, power is 5/5 both on sides Skin: No rash, No ulcerations Data Review Labs Laboratory Tests 02/05/20 18:04: Blood Gas Puncture Site RIGHT RADIAL, Blood Gas Patient Temperature 35.8, Arterial Blood pH 7.44H, Arterial Blood Partial Pressure CO2 30L, Arterial Blood Partial Pressure O2 70L, Arterial Blood HCO3 21L, Arterial Blood Total CO2 21.5, Arterial Blood Oxygen Saturation 96, Arterial Blood Base Excess -3.1L, Sarkis Test POSITIVE, Blood Gas Ventilator Setting NO, Blood Gas Inspired Oxygen 2% 02/05/20 18:35: Lactic Acid Level 2.65*H 02/05/20 20:21: Urine Color YELLOW, Urine Clarity CLEAR, Urine pH 6.0, Urine Specific [place] 1.025H, Urine Protein NEGATIVE, Urine Glucose (UA) NEGATIVE, Urine Ketones NEGATIVE, Urine Nitrite NEGATIVE, Urine Bilirubin NEGATIVE, Urine Urobilinogen 2.0, Urine Leukocyte Esterase NEGATIVE, Urine RBC (Auto) NEGATIVE, Urine RBC NONE, Urine WBC NONE, Urine Crystals PRESENTH, Urine Amorphous Sediment RARE ALEX URATESH, Urine Bacteria TRACE, Urine Casts NONE, Urine Mucus NEGATIVE, Urine Culture Indicated NO 02/05/20 21:13: Lactic Acid Level 2.23*H 02/05/20 23:36: Lactic Acid Level 2.22*H 02/06/20 02:28: Lactic Acid Level 2.50*H, White Blood Count 6.0, Red Blood Count 3.30L, Hemoglobin 9.6L, Hematocrit 29L, Mean Corpuscular Volume 89, Mean Corpuscular Hemoglobin 29, Mean Corpuscular Hemoglobin Concent 33, Red Cell Distribution Width 13.4, Platelet Count 234, Mean Platelet Volume 10.1, Neutrophils (%) (Auto) 71, Lymphocytes (%) (Auto) 10L, Monocytes (%) (Auto) 15H, Eosinophils (%) (Auto) 4, Basophils (%) (Auto) 0, Neutrophils # (Auto) 4.3, Lymphocytes # (Auto) 0.6L, Monocytes # (Auto) 0.9, Eosinophils # (Auto) 0.2, Basophils # (Auto) 0.0, Sodium Level 131L, Potassium Level 4.4, Chloride Level 104, Carbon Dioxide Level 17L, Anion Gap 10, Blood Urea Nitrogen 17, Creatinine 0.69, Estimat Glomerular Filtration Rate > 60, BUN/Creatinine Ratio 25, Glucose Level 97, Calcium Level 7.4L, Corrected Calcium 8.4L, Total Bilirubin 1.2H, Aspartate Amino Transf (AST/SGOT) 91H, Alanine Aminotransferase (ALT/SGPT) 73H, Alkaline Phosphatase 223H, Total Protein 5.2L, Albumin 2.7L 02/06/20 04:49: Lactic Acid Level 1.92 Microbiology 02/05/20 MRSA Screen - Final, Complete MRSA not isolated A/P-Cardiology Assessment/Admission Diagnosis Hypertension, Possible sepsis, Lactic acidosis, Liver mass, Hypertension, Diabetes, Alcohol abuse. Plan Hypo tension, likely due to dehydration or sepsis. Echocardiogram showed normal LV function with no wall motion abnormalities. No valvular heart disease. Unlikely cardiac etiology. Agree with IV fluids. Possible sepsis, broad-spectrum IV antibiotics. Defer to Dr. Avilez. Lactic acidosis, Liver mass, Hypertension, hold medications for now. Diabetes, Alcohol abuse. No significant use in the past 2 weeks. Thank you for your consultation. Please call me if you have any questions. Anamika Lombardo MD, FACP, FACC, FSCAI, FHRS, CCDS Interventional Cardiology Cardiac Electrophysiology Vascular Medicine and Endovascular Interventions Clinical Quality Measures DVT/VTE Risk/Contraindication: Risk Factor Score Per Nursin RFS Level Per Nursing on Admit: 2=Moderate Catherine LOMBARDO MD Feb 06, 2020:35
[2020-02-06] MEDS: HYDROmorphone 2 MG/ML VIAL (DILAUDID) IVP PRN (18:04)
[2020-02-07] VITALS (7 sets, daily range): BP systolic 101–125; BP diastolic 68–77
[2020-02-07] MEDS: HYDROmorphone 2 MG/ML VIAL (DILAUDID) IVP PRN ×2 (03:12→09:02)
[2020-02-07 05:14] LABS: BASOPHILS % (AUTO) 0 % (0-10); EOSINOPHILS # (AUTO) 0.2 10^3/uL (0.0-0.3); EOSINOPHILS % (AUTO) 4 % (0-10); HEMATOCRIT 32 % (40-54); HEMOGLOBIN 10.1 G/DL (13.3-17.7); LYMPHOCYTES # (AUTO) 0.8 X 10^3 (1.0-4.0); LYMPHOCYTES % (AUTO) 13 % (12-44); MEAN CORPUSCULAR HEMOGLOBIN 28 PG (25-34); MEAN CORPUSCULAR HGB CONC 32 G/DL (32-36); MEAN CORPUSCULAR VOLUME 89 FL (80-99); MEAN PLATELET VOLUME 10.3 FL (7.4-10.4); MONOCYTES # (AUTO) 0.8 X 10^3 (0.0-1.0); MONOCYTES % (AUTO) 12 % (0-12); NEUTROPHILS # (AUTO) 4.7 X 10^3 (1.8-7.8); NEUTROPHILS % (AUTO) 72 % (42-75); PLATELET COUNT 286 10^3/uL (130-400); RED CELL DISTRIBUTION WIDTH 13.8 % (10.0-14.5); WHITE BLOOD COUNT 6.6 10^3/uL (4.3-11.0)
[2020-02-07 05:31] LABS: ALANINE AMINOTRANSFERASE 65 U/L (0-55); ALBUMIN 2.9 GM/DL (3.2-4.5); ALKALINE PHOSPHATASE 258 U/L (40-136); BUN/CREATININE RATIO 19; CARBON DIOXIDE 21 MMOL/L (21-32); CHLORIDE 103 MMOL/L (98-107); CREATININE SERUM 0.68 MG/DL (0.60-1.30); GFR ESTIMATED > 60; GLUCOSE 117 MG/DL (70-105); SODIUM 132 MMOL/L (135-145); TOTAL PROTEIN 5.7 GM/DL (6.4-8.2)
[2020-02-07] MEDS: VANCOMYCIN 1250 MG/NS 250 ML IVPB IV SCH ×4 (05:58→18:36)
[2020-02-07] MEDS: PIPERACILLIN/TAZOBACTAM (BULK) 4.5 GM in NS (IVPB) 100 ML IV SCH ×3 (07:28→23:35)
[2020-02-07] MEDS: RT-ALBUTEROL SULF 2.5 MG/3 ML PRE-MIX VIAL INH SCH ×3 (07:43→18:14)
[2020-02-07] MEDS: PANTOPRAZOLE 40 MG (PROTONIX) TAB PO SCH (09:02)
[2020-02-07] MEDS: SENNA W/DOCUSATE (SENOKOT S) TABLET PO SCH ×2 (09:05→20:52)
--- NOTE | 2020-02-07 11:16 | NUR ---
Pt is Rastafarian and declines Spiritual Care.
--- NOTE | 2020-02-07 11:39 | Progress Note ---
Subjective Date Seen by a Provider: Feb 07, 2020 Time Seen by a Provider: 10:45 Subjective/Events-last exam Patient seen with Dr. Cooper. Patient reports doing well but still having some abdominal tenderness. Tolerating diet and having BMs. No fever/chills, No N/V. Focused Exam Lactate Level 02/05/20 23:36: Lactic Acid Level 2.22*H 02/06/20 02:28: Lactic Acid Level 2.50*H 02/06/20 04:49: Lactic Acid Level 1.92 Objective Exam Vital Signs Date Time Temp Pulse Resp B/P (MAP) Pulse Ox O2 Delivery O2 Flow Rate FiO2 02/07/20 11:10 36.6 90 20 120/68 (85) 93 Room Air 02/07/20 08:00 97 Room Air 02/07/20 07:44 92 Room Air 02/07/20 07:13 36.2 90 24 101/68 (79) 93 Room Air 02/07/20 04:00 36.8 97 20 125/75 (92) 94 Room Air 02/07/20 00:00 36.7 97 20 119/73 (88) 95 Room Air 02/06/20 21:38 94 Room Air 02/06/20 20:00 97 Room Air 02/06/20 19:40 37.1 98 18 111/67 (82) 93 Room Air 02/06/20 16:56 36.4 97 20 118/75 (89) 95 Room Air 02/06/20 16:00 36.4 102 22 114/81 (92) 97 Room Air 02/06/20 14:45 92 Room Air 02/06/20 12:00 35.9 104 27 129/52 (77) 96 Room Air I & O 02/07/20 07:00 Intake Total 2787 ml Output Total 707 ml Balance 2080 ml Capillary Refill : Less Than 3 Seconds General Appearance: No Apparent Distress, WD/WN Neck: Full Range of Motion, Normal Inspection, Supple Respiratory: Normal Breath Sounds, No Accessory Muscle Use, No Respiratory Distress Cardiovascular: Regular Rate, Rhythm, No Edema Gastrointestinal: non tender, soft, distended Extremity: Normal Capillary Refill, Normal Inspection, Normal Range of Motion Neurologic/Psychiatric: Alert, Oriented x3 Skin: Normal Color, Warm/Dry Results Lab Laboratory Tests 02/07/20 04:40: White Blood Count 6.6, Red Blood Count 3.58L, Hemoglobin 10.1L, Hematocrit 32L, Mean Corpuscular Volume 89, Mean Corpuscular Hemoglobin 28, Mean Corpuscular Hemoglobin Concent 32, Red Cell Distribution Width 13.8, Platelet Count 286, Mean Platelet Volume 10.3, Neutrophils (%) (Auto) 72, Lymphocytes (%) (Auto) 13, Monocytes (%) (Auto) 12, Eosinophils (%) (Auto) 4, Basophils (%) (Auto) 0, Neutrophils # (Auto) 4.7, Lymphocytes # (Auto) 0.8L, Monocytes # (Auto) 0.8, Eosinophils # (Auto) 0.2, Basophils # (Auto) 0.0, Sodium Level 132L, Potassium Level 4.0, Chloride Level 103, Carbon Dioxide Level 21, Anion Gap 8, Blood Urea Nitrogen 13, Creatinine 0.68, Estimat Glomerular Filtration Rate > 60, BUN/C reatinine Ratio 19, Glucose Level 117H, Calcium Level 8.0L, Corrected Calcium 8.9, Total Bilirubin 1.0, Aspartate Amino Transf (AST/SGOT) 64H, Alanine Aminotransferase (ALT/SGPT) 65H, Alkaline Phosphatase 258H, Total Protein 5.7L, Albumin 2.9L Microbiology 02/05/20 Blood Culture - Preliminary, Resulted No growth 02/05/20 MRSA Screen - Final, Complete MRSA not isolated Assessment/Plan Assessment/Plan Assess & Plan/Chief Complaint A 59 year old male with metastatic liver lesions. VSS WBC WNL has never had a colonoscopy. patient now appears asymptomatic. Continue with tx for sepsis. regular diet. will schedule colonoscopy as OP after prep. Clinical Quality Measures DVT/VTE Risk/Contraindication: Risk Factor Score Per Nursin RFS Level Per Nursing on Admit: 2=Moderate ERYN DEJESUS GEOMORPHOLOGIST Feb 07, 2020 11:39
--- NOTE | 2020-02-07 12:13 | PM&R Progress Note ---
Subjective HPI/CC On Admission Date Seen by Provider: Feb 07, 2020 Time Seen by Provider: 11:30 CC: Hypotension prior to CT guided liver biopsy today in IR HPI: This is a 59yoWM clinic patient of Pawan Orona at [facility] who was recently diagnosed last month with liver masses of unknown primary since presumed cancerous who presented to the ER following a hypotensive episode prior to IR procedure and was assessed and r/o sepsis so I consulted Cardiology and Dr Cooper in evaluating the source of the low BP. Patient has been feeling dizzy and light headiness recently also. I have consulted Dr Cooper to assure this isn't anything affiliated with hepatic thrombosis and I will continue to pursue sepsis as source since he has had severe sepsis in the past. Focused Exam Lactate Level 02/05/20 23:36: Lactic Acid Level 2.22*H 02/06/20 02:28: Lactic Acid Level 2.50*H 02/06/20 04:49: Lactic Acid Level 1.92 Objective Exam Vital Signs Vital Signs Date Time Temp Pulse Resp B/P (MAP) Pulse Ox O2 Delivery O2 Flow Rate FiO2 02/07/20 11:10 36.6 90 20 120/68 (85) 93 Room Air 02/05/20 16:00 2.00 Capillary Refill : Less Than 3 Seconds General Appearance: No Apparent Distress, WD/WN HEENT: PERRL/EOMI Neck: Full Range of Motion, Normal Inspection, Supple Respiratory: Normal Breath Sounds, No Accessory Muscle Use, No Respiratory Distress Cardiovascular: Regular Rate, Rhythm, No Edema Gastrointestinal: Normal Bowel Sounds, No Organomegaly, No Pulsatile Mass, Non Tender, Soft Back: Normal Inspection, No CVA Tenderness, No Vertebral Tenderness Extremity: Normal Capillary Refill, Normal Inspection, Normal Range of Motion Neurologic/Psychiatric: Alert, Oriented x3 Skin: Normal Color, Warm/Dry Lymphatic: No Adenopathy Results/Procedures Lab Laboratory Tests 02/07/20 04:40 Patient resulted labs reviewed. FIM Transfers Therapy Code Descriptions/Definitions Functional [place] Measure: 0=Not Assessed/NA 4=Minimal Assistance 1=Total Assistance 5=Supervision or Setup 2=Maximal Assistance 6=Modified [place] 3=Moderate Assistance 7=Complete IndependenceSCALE: Activities may be completed with or without assistive devices. 5-Qlinyylpli-ppjcyew completes the activity by him/herself with no assistance from a helper. 5-Set-up or Clean-up Assistance-helper sets up or cleans up; patient completes activity. [place] assists only prior to or following the activity. 4-Supervision or Touching Assistance-helper provides verbal cues and/or touching/steadying and/or contact guard assistance as patient completes activit y. Assistance may be provided throughout the activity or intermittently. 3-Partial/Moderate Assistance-helper does LESS THAN HALF the effort. [place] lifts, holds or supports trunk or limbs, but provides less than half the effort. 2-Substantial/Maximal Assistance-helper does MORE THAN HALF the effort. [place] lifts or holds trunk or limbs and provides more than half the effort. 5-Adrorzoad-fsxovf does ALL the effort. Patient does none of the effort to complete the activity. Or, the assistance of 2 or more helpers is required for the patient to complete the activity. If activity was not attempted, code reason: 7-Patient Refused. 9-Not Applicable-not attempted and the patient did not perform the activity before the current illness, exacerbation or injury. 10-Not Attempted due to Environmental Limitations-(lack of equipment, weather restraints, etc.). 88-Not Attempted due to Medical Conditions or Safety Concerns. Assessment/Plan Assessment and Plan Assess & Plan/Chief Complaint Assessment: Hypotensive episode prior to IR liver biopsy procedure now assessed to be severe sepsis from PNA that became apparent after IVF given which ER ordered Liver masses Perihilar ATX? added procalcitonin and repeating lactic acid after admit and both were elevated confirming severe sepsis abx were empirically started Excessive ETOH use no use in the past 2-3 weeks per patient HTN HLP Neuropathy Plan: IVF ICU monitoring once stable will move to 4th floor Consult Dr Lombardo and Dr Cooper are appreciated Septic treatment Lovenox and SCD's (1) Severe sepsis Status: Acute (2) Pneumonia (3) Transient hypotension Status: Acute (4) Liver masses Status: Acute (5) Syncope, near Status: Acute (6) Abdominal pain Status: Acute DIPESH BROWN DO Feb 07, 2020 12:13
[2020-02-07] MEDS ORDERED: FUROSEMIDE 40 MG/4 ML INJ (LASIX) IVP ONE (12:15)
--- NOTE | 2020-02-07 12:15 | Progress Note - Hospitalist ---
Subjective HPI/CC On Admission Date Seen by Provider: Feb 07, 2020 Time Seen by Provider: 11:30 CC: Hypotension prior to CT guided liver biopsy today in IR HPI: This is a 59yoWM clinic patient of Pawan Orona at [facility] who was recently diagnosed last month with liver masses of unknown primary since presumed cancerous who presented to the ER following a hypotensive episode prior to IR procedure and was assessed and r/o sepsis so I consulted Cardiology and Dr Cooper in evaluating the source of the low BP. Patient has been feeling dizzy and light headiness recently also. I have consulted Dr Cooper to assure this isn't anything affiliated with hepatic thrombosis and I will continue to pursue sepsis as source since he has had severe sepsis in the past. Subjective/Events-last exam Patient feels better Lasix will be given due to trace edema and slight overload noted on exam today since s/p severe sepsis fluids given Saturday Pain is still persisting of the RUQ Still needs liver biopsy versus colonoscopy. No pain is reported otherwise Ambulating well Review of Systems General: Fatigue Cardiovascular: Edema Gastrointestinal: Abdominal Pain Focused Exam Lactate Level 02/05/20 23:36: Lactic Acid Level 2.22*H 02/06/20 02:28: Lactic Acid Level 2.50*H 02/06/20 04:49: Lactic Acid Level 1.92 Objective Exam Vital Signs Vital Signs Date Time Temp Pulse Resp B/P (MAP) Pulse Ox O2 Delivery O2 Flow Rate FiO2 02/07/20 19:50 35.8 92 22 108/71 (83) 96 Room Air 02/05/20 16:00 2.00 Capillary Refill : Less Than 3 Seconds General Appearance: No Apparent Distress, WD/WN, Chronically ill Respiratory: Chest Non Tender, Lungs Clear, Normal Breath Sounds, No Accessory Muscle Use, No Respiratory Distress Cardiovascular: Regular Rate, Rhythm, No Gallop, No JVD, No Murmur, Normal Peripheral Pulses Extremity: Pedal Edema Neurologic/Psychiatric: Alert, Oriented x3, No Motor/Sensory Deficits, Normal Mood/Affect Results/Procedures Lab Laboratory Tests 02/07/20 04:40 Patient resulted labs reviewed. Assessment/Plan Assessment and Plan Assess & Plan/Chief Complaint Assessment: Hypotensive episode prior to IR liver biopsy procedure now assessed to be severe sepsis from PNA that became apparent after IVF given which ER ordered Liver masses Perihilar ATX? added procalcitonin and repeating lactic acid after admit and bot h were elevated confirming severe sepsis abx were empirically started Excessive ETOH use no use in the past 2-3 weeks per patient HTN HLP Neuropathy Plan: IVF heplocked 4th floor Consult Dr Lombardo and Dr Cooper are appreciated Septic treatment Lovenox and SCD's Diagnosis/Problems Diagnosis/Problems (1) Severe sepsis Status: Acute (2) Pneumonia (3) Transient hypotension Status: Acute (4) Liver masses Status: Acute (5) Syncope, near Status: Acute (6) Abdominal pain Status: Acute Clinical Quality Measures DVT/VTE Risk/Contraindication: Risk Factor Score Per Nursin RFS Level Per Nursing on Admit: 2=Moderate DIPESH BROWN DO Feb 07, 2020 12:14
--- NOTE | 2020-02-07 15:24 | Cardiology Progress Note ---
Cardiology SOAP Progress Note Subjective: Complains of mild shortness of breath. No chest pain. Objective: I&O/Vital Signs 02/07/20 02/07/20 02/07/20 02/07/20 04:00 07:13 07:44 08:00 Temp 36.8 36.2 Pulse 97 90 Resp 20 24 B/P (MAP) 125/75 (92) 101/68 (79) Pulse Ox 94 93 92 97 O2 Delivery Room Air Room Air Room Air Room Air 02/07/20 02/07/20 11:10 15:02 Temp 36.6 Pulse 90 Resp 20 B/P (MAP) 120/68 (85) Pulse Ox 93 92 O2 Delivery Room Air Room Air 02/07/20 00:00 Intake Total 1540 ml Output Total 702 ml Balance 838 ml Weight (Pounds): 198 Weight (Ounces): 0.0 Weight (Calculated Kilograms): 89.735916 Constitutional: appears stated age; No apparent distress; well-developed, well- nourished Respiratory: chest is bilaterally symmetric, lungs clear to auscultation Cardiovascular: regular rate-rhythm Gastrointestional: round, audible bowel sounds; No spleenomegaly Extremities: normal range of motion, non-tender, normal inspection; No clubbing, No cyanosis; no lower extremity edema bilateral; No significant edema Neurologic/Psychiatric: no motor/sensory deficits, alert, normal mood/affect, oriented x 3, power is 5/5 both on sides Skin: No rash, No ulcerations Results/Procedures: Labs Laboratory Tests 02/07/20 04:40: White Blood Count 6.6, Red Blood Count 3.58L, Hemoglobin 10.1L, Hematocrit 32L, Mean Corpuscular Volume 89, Mean Corpuscular Hemoglobin 28, Mean Corpuscular Hemoglobin Concent 32, Red Cell Distribution Width 13.8, Platelet Count 286, Hilaria n Platelet Volume 10.3, Neutrophils (%) (Auto) 72, Lymphocytes (%) (Auto) 13, Monocytes (%) (Auto) 12, Eosinophils (%) (Auto) 4, Basophils (%) (Auto) 0, Neutrophils # (Auto) 4.7, Lymphocytes # (Auto) 0.8L, Monocytes # (Auto) 0.8, Eosinophils # (Auto) 0.2, Basophils # (Auto) 0.0, Sodium Level 132L, Potassium Level 4.0, Chloride Level 103, Carbon Dioxide Level 21, Anion Gap 8, Blood Urea Nitrogen 13, Creatinine 0.68, Estimat Glomerular Filtration Rate > 60, BUN/Creatinine Ratio 19, Glucose Level 117H, Calcium Level 8.0L, Corrected Calcium 8.9, Total Bilirubin 1.0, Aspartate Amino Transf (AST/SGOT) 64H, Alanine Aminotransferase (ALT/SGPT) 65H, Alkaline Phosphatase 258H, Total Protein 5.7L, Albumin 2.9L Microbiology 02/05/20 Blood Culture - Preliminary, Resulted No growth 02/05/20 MRSA Screen - Final, Complete MRSA not isolated A/P: Assessment/Dx: hypotension on admission Shortness of breath, Possible sepsis, Lactic acidosis, Liver mass, Hypertension, Diabetes, Alcohol abuse. Plan: Hypo tension, likely due to dehydration or sepsis. Echocardiogram showed normal LV function with no wall motion abnormalities. No valvular heart disease. Unlikely cardiac etiology. Agree with IV fluids. Improved significantly. Shortness of breath, unlikely cardiac etiology with a normal echocardiogram. Defer to the primary team and pulmonology. Possible sepsis, broad-spectrum IV antibiotics. Defer to Dr. Avilez. Lactic acidosis, Liver mass, Hypertension, hold medications for now. Diabetes, Alcohol abuse. No significant use in the past 2 weeks. Thank you for your consultation. Please call me if you have any questions. Anamika Lombardo MD, FACP, FACC, FSCAI, FHRS, CCDS Interventional Cardiology Cardiac Electrophysiology Vascular Medicine and Endovascular Interventions Focused Exam Lactate Level 02/05/20 23:36: Lactic Acid Level 2.22*H 02/06/20 02:28: Lactic Acid Level 2.50*H 02/06/20 04:49: Lactic Acid Level 1.92 Catherine LOMBARDO MD Feb 07, 2020 15:24
[2020-02-07] MEDS: ENOXAPARIN 40 MG/0.4 ML (LOVENOX) SYR SC SCH (16:00)
--- NOTE | 2020-02-07 16:09 | NUR ---
Report received from Majo MARTINEZ, will assume care of patient at this time.
[2020-02-07] MEDS: MELATONIN 3 MG TABLET PO PRN (22:38)
[2020-02-08] MEDS: HYDROmorphone 2 MG/ML VIAL (DILAUDID) IVP PRN (01:36)
[2020-02-08 04:00] VITALS: BP 115/79
[2020-02-08 05:36] LABS: BASOPHILS % (AUTO) 0 % (0-10); EOSINOPHILS # (AUTO) 0.3 10^3/uL (0.0-0.3); EOSINOPHILS % (AUTO) 4 % (0-10); HEMATOCRIT 32 % (40-54); HEMOGLOBIN 10.3 G/DL (13.3-17.7); LYMPHOCYTES % (AUTO) 14 % (12-44); MEAN CORPUSCULAR HEMOGLOBIN 28 PG (25-34); MEAN CORPUSCULAR HGB CONC 32 G/DL (32-36); MEAN CORPUSCULAR VOLUME 89 FL (80-99); MEAN PLATELET VOLUME 10.3 FL (7.4-10.4); MONOCYTES # (AUTO) 0.9 X 10^3 (0.0-1.0); MONOCYTES % (AUTO) 13 % (0-12); NEUTROPHILS # (AUTO) 4.8 X 10^3 (1.8-7.8); NEUTROPHILS % (AUTO) 69 % (42-75); PLATELET COUNT 286 10^3/uL (130-400); RED CELL DISTRIBUTION WIDTH 13.7 % (10.0-14.5)
[2020-02-08 06:00] LABS: ALANINE AMINOTRANSFERASE 61 U/L (0-55); ALBUMIN 2.9 GM/DL (3.2-4.5); ALKALINE PHOSPHATASE 232 U/L (40-136); BUN/CREATININE RATIO 22; CALCIUM 8.2 MG/DL (8.5-10.1); CARBON DIOXIDE 22 MMOL/L (21-32); CHLORIDE 99 MMOL/L (98-107); CREATININE SERUM 0.73 MG/DL (0.60-1.30); GFR ESTIMATED > 60; GLUCOSE 87 MG/DL (70-105); SODIUM 132 MMOL/L (135-145); TOTAL PROTEIN 5.8 GM/DL (6.4-8.2)
[2020-02-08] MEDS: VANCOMYCIN 1250 MG/NS 250 ML IVPB IV SCH ×2 (06:01)
[2020-02-08] MEDS: RT-ALBUTEROL SULF 2.5 MG/3 ML PRE-MIX VIAL INH SCH ×3 (07:12→18:34)
[2020-02-08 07:35] VITALS: BP 129/89
[2020-02-08] MEDS: PIPERACILLIN/TAZOBACTAM (BULK) 4.5 GM in NS (IVPB) 100 ML IV SCH ×3 (07:55→23:10)
[2020-02-08] MEDS: SENNA W/DOCUSATE (SENOKOT S) TABLET PO SCH ×2 (09:31→20:30)
[2020-02-08] MEDS: PANTOPRAZOLE 40 MG (PROTONIX) TAB PO SCH (09:31)
--- NOTE | 2020-02-08 10:11 | NUR ---
CM/SS visited with the patient for discharge planning. The patient is a patient of [facility] ([place]) and uses the [facility] pharmacy for his medications. He reports that he has never went without his medications due to cost. CM/SS asked if he could afford his medications and patient did not state he had issues at this time but was very short with answers at time of visit. CM/SS will look into pain medication cost through the [facility] pharmacy at time of discharge to make sure patient can afford medication. The patient does receive a Social Security check of $1,400 a month. He stated that this covers his housing cost and bills. CM/SS will follow up with the patient.
[2020-02-08] MEDS: oxyCODONE ER 10 MG (OxyCONTIN CR) TAB PO SCH ×2 (11:06→20:30)
[2020-02-08 11:35] VITALS: BP 116/77
--- NOTE | 2020-02-08 13:11 | NUR ---
"RD ASSESSMENT PMHx: hypercholesterolemia; HTN; GERD; cirrhosis; ETOH abuse PT INTERACTION: Pt was awake and pleasant during nutrition assessment. Pt states current appetite is okay, and has been for a while. Note avg PO intake >75% x2d, per chart review. Pt states no recent issues with n/v/c/d at this time, and states his last BM was a couple of days ago. Note pt currently on bowel regimen of Senna BID, per chart review. Pt states recent wt loss, but unsure of amount. Pt states wt loss is intentional and d/t pt exercising more. Note unable to determine recent wt hx, per chart review. ABNORMAL NUTRITION-RELATED LAB VALUES LOW: Na 132; Ca 8.2; Pro 5.8; alb 2.9 HIGH: AST 69; ALT 61; alkphos 232 Est. kcal needs: 7649-3570 kcal | 20-25 kcal/kg Est. Pro needs: 82-103 g Pro | 0.8-1.0 g Pro/kg PES STATEMENT: Given pt PO intake, no nutrition diagnosis at this time (NO-1.1) INTERVENTION: Continue with current diet order of Regular diet. Discontinue current supplementation order of Ensure Enlive with meals TID. Pt intake is >75% x2d. Will continue to follow and reassess as pt needs, intake, and status change. MONITOR/EVALUATE: PO Intake; Plan of Care; Hydration Status; Weight Status; Lab Values Aubree Domingo, MS, RD, LD"
--- NOTE | 2020-02-08 13:20 | NUR ---
Pastoral Care Visit. Addendum: 02/08/20 at 1621 by HALINA GREWAL PAST Mis entered
[2020-02-08 15:30] VITALS: BP 108/67
[2020-02-08] MEDS: ENOXAPARIN 40 MG/0.4 ML (LOVENOX) SYR SC SCH (16:02)
--- NOTE | 2020-02-08 16:37 | Progress Note ---
Subjective Subjective/Events-last exam Afebrile, continuing to have marked abdominal pain. Focused Exam Lactate Level 02/05/20 23:36: Lactic Acid Level 2.22*H 02/06/20 02:28: Lactic Acid Level 2.50*H 02/06/20 04:49: Lactic Acid Level 1.92 Objective Exam Last Set of Vital Signs Vital Signs Date Time Temp Pulse Resp B/P (MAP) Pulse Ox O2 Delivery O2 Flow Rate FiO2 02/08/20 15:30 36.2 89 18 108/67 (81) 92 Room Air 02/05/20 16:00 2.00 Capillary Refill : Less Than 3 Seconds I&O Intake and Output 02/08/20 00:00 Intake Total 3367 ml Output Total 5 ml Balance 3362 ml Intake Oral 3367 ml Output Urine Total 5 ml # Voids 10 General: Alert, No Acute Distress Lungs: Clear to Auscultation, Normal Air Movement Abdomen: Normal Bowel Sounds, Other (distended, ttp diffusely) Extremities: Other (1+ edema) Neuro: Normal Speech Psych/Mental Status: Mental Status NL Results/Procedures Lab Laboratory Tests 02/08/20 05:20: White Blood Count 7.0, Red Blood Count 3.64L, Hemoglobin 10.3L, Hematocrit 32L, Mean Corpuscular Volume 89, Mean Corpuscular Hemoglobin 28, Mean Corpuscular Hemoglobin Concent 32, Red Cell Distribution Width 13.7, Platelet Count 286, Mean Platelet Volume 10.3, Neutrophils (%) (Auto) 69, Lymphocytes (%) (Auto) 14, Monocytes (%) (Auto) 13H, Eosinophils (%) (Auto) 4, Basophils (%) (Auto) 0, Neutrophils # (Auto) 4.8, Lymphocytes # (Auto) 1.0, Monocytes # (Auto) 0.9, Eosinophils # (Auto) 0.3, Basophils # (Auto) 0.0, Sodium Level 132L, Potassium Level 4.0, Chloride Level 99, Carbon Dioxide Level 22, Anion Gap 11, Blood Urea Nitrogen 16, Creatinine 0.73, Estimat Glomerular Filtration Rate > 60, BUN/Creatinine Ratio 22, Glucose Level 87, Calcium Level 8.2L, Corrected Calcium 9.1, Total Bilirubin 1.0, Aspartate Amino Transf (AST/SGOT) 69H, Alanine Aminot ransferase (ALT/SGPT) 61H, Alkaline Phosphatase 232H, Total Protein 5.8L, Albumin 2.9L Microbiology 02/05/20 Blood Culture - Preliminary, Resulted No growth 02/05/20 MRSA Screen - Final, Complete MRSA not isolated Assessment/Plan Assessment/Plan (1) Liver masses Status: Acute Assessment & Plan: Unable to get biopsy done due to hypotension, will need rescheduled. Hepatitis testing outpatient negative. (2) Abdominal pain Status: Acute Assessment & Plan: Suspect related to liver masses, started before this admission. Is requiring significant amount of oxycodone, will start oxycontin to try to manage pain with oral meds in order to be able to d/c and get remainder of work-up done. Qualifiers: Qualified Codes: R10.84 - Generalized abdominal pain (3) Pneumonia Status: Acute Assessment & Plan: Vitals improved, continue Zosyn. (4) DVT prophylaxis Status: Acute Assessment & Plan: Enoxaparin Clinical Quality Measures DVT/VTE Risk/Contraindication: Risk Factor Score Per Nursin RFS Level Per Nursing on Admit: 2=Moderate HOSSEIN MAYES MD Feb 08, 2020 16:37
--- NOTE | 2020-02-08 17:54 | Cardiology Progress Note ---
Cardiology SOAP Progress Note Subjective: No cardiac complaints. Objective: I&O/Vital Signs 02/08/20 02/08/20 02/08/20 02/08/20 07:14 07:35 09:18 11:35 Temp 36.2 35.8 Pulse 99 91 Resp 20 20 B/P (MAP) 129/89 (102) 116/77 (90) Pulse Ox 90 94 94 93 O2 Delivery Room Air Room Air Room Air Room Air 02/08/20 02/08/20 13:33 15:30 Temp 36.2 Pulse 89 Resp 18 B/P (MAP) 108/67 (81) Pulse Ox 90 92 O2 Delivery Room Air Room Air 02/08/20 00:00 Intake Total 2120 ml Balance 2120 ml Weight (Pounds): 198 Weight (Ounces): 0.0 Weight (Calculated Kilograms): 89.990661 Constitutional: appears stated age; No apparent distress; well-developed, well- nourished Respiratory: chest is bilaterally symmetric, lungs clear to auscultation Cardiovascular: regular rate-rhythm Gastrointestional: round, audible bowel sounds; No spleenomegaly Extremities: normal range of motion, non-tender, normal inspection; No clubbing, No cyanosis; no lower extremity edema bilateral; No significant edema Neurologic/Psychiatric: no motor/sensory deficits, alert, normal mood/affect, oriented x 3, power is 5/5 both on sides Skin: No rash, No ulcerations Results/Procedures: Labs Laboratory Tests 02/08/20 05:20: White Blood Count 7.0, Red Blood Count 3.64L, Hemoglobin 10.3L, Hematocrit 32L, Mean Corpuscular Volume 89, Mean Corpuscular Hemoglobin 28, Mean Corpuscular Hemoglobin Concent 32, Red Cell Distribution Width 13.7, Platelet Count 286, Mean Platelet Volume 10.3, Neutrophils (%) (Auto) 69, Lymphocytes (%) (Auto) 14, Monocytes (%) (Auto) 13H, Eosinophils (%) (Auto) 4, Basophils (%) (Auto) 0, Neutrophils # (Auto) 4.8, Lymphocytes # (Auto) 1.0, Monocytes # (Auto) 0.9, Eosinophils # (Auto) 0.3, Basophils # (Auto) 0.0, Sodium Level 132L, Potassium Level 4.0, Chloride Level 99, Carbon Dioxide Level 22, Anion Gap 11, Blood Urea Nitrogen 16, Creatinine 0.73, Estimat Glomerular Filtration Rate > 60, BUN/Creatinine Ratio 22, Glucose Level 87, Calcium Level 8.2L, Corrected Calcium 9.1, Total Bilirubin 1.0, Aspartate Amino Transf (AST/SGOT) 69H, Alanine Aminotransferase (ALT/SGPT) 61H, Alkaline Phosphatase 232H, Total Protein 5.8L, Albumin 2.9L Microbiology 02/05/20 Blood Culture - Preliminary, Resulted No growth 02/05/20 MRSA Screen - Final, Complete MRSA not isolated A/P: Assessment/Dx: hypotension on admission Shortness of breath, Possible sepsis, Lactic acidosis, Liver mass, Hypertension, Diabetes, Alcohol abuse. Plan: Hypo tension, likely due to dehydration or sepsis. Echocardiogram showed normal LV function with no wall motion abnormalities. No valvular heart disease. Unlikely cardiac etiology. Agree with IV fluids. Improved significantly. Shortness of breath, unlikely cardiac etiology with a normal echocardiogram. Defer to the primary team and pulmonology. Possible sepsis, broad-spectrum IV antibiotics. Defer to Dr. Avilez. Lactic acidosis, Liver mass, Hypertension, hold medications for now. Diabetes, Alcohol abuse. No significant use in the past 2 weeks. Thank you for your consultation. Please call me if you have any questions. Anamika Lombardo MD, FACP, FACC, FSCAI, FHRS, CCDS Interventional Cardiology Cardiac Electrophysiology Vascular Medicine and Endovascular Interventions Focused Exam Lactate Level 02/05/20 23:36: Lactic Acid Level 2.22*H 02/06/20 02:28: Lactic Acid Level 2.50*H 02/06/20 04:49: Lactic Acid Level 1.92 Catherine LOMBARDO MD Feb 08, 2020 17:54
[2020-02-08 20:00] VITALS: BP 109/68
[2020-02-08] MEDS: MELATONIN 3 MG TABLET PO PRN (23:10)
[2020-02-08] MEDS: ALPRAZolam 0.25 MG (XANAX) TAB PO PRN (23:10)
[2020-02-08 23:14] VITALS: BP 119/73
[2020-02-09 04:06] VITALS: BP 108/65
[2020-02-09 05:51] LABS: HEMOGLOBIN 9.8 G/DL (13.3-17.7); MEAN PLATELET VOLUME 10.2 FL (7.4-10.4); RED CELL DISTRIBUTION WIDTH 13.9 % (10.0-14.5); WHITE BLOOD COUNT 6.7 10^3/uL (4.3-11.0)
[2020-02-09 06:10] LABS: ALANINE AMINOTRANSFERASE 59 U/L (0-55); ALBUMIN 2.7 GM/DL (3.2-4.5); ALKALINE PHOSPHATASE 218 U/L (40-136); BILIRUBIN,TOTAL 0.9 MG/DL (0.1-1.0); BUN/CREATININE RATIO 21; CALCIUM 8.2 MG/DL (8.5-10.1); CARBON DIOXIDE 23 MMOL/L (21-32); CHLORIDE 100 MMOL/L (98-107); CREATININE SERUM 0.73 MG/DL (0.60-1.30); GFR ESTIMATED > 60; GLUCOSE 107 MG/DL (70-105); POTASSIUM 4.1 MMOL/L (3.6-5.0); SODIUM 134 MMOL/L (135-145); TOTAL PROTEIN 5.5 GM/DL (6.4-8.2)
[2020-02-09 08:00] VITALS: BP 105/70
[2020-02-09] MEDS: PIPERACILLIN/TAZOBACTAM (BULK) 4.5 GM in NS (IVPB) 100 ML IV SCH ×2 (08:19→15:46)
[2020-02-09] MEDS: PANTOPRAZOLE 40 MG (PROTONIX) TAB PO SCH (08:20)
[2020-02-09] MEDS: oxyCODONE ER 10 MG (OxyCONTIN CR) TAB PO SCH (08:20)
[2020-02-09] MEDS: SENNA W/DOCUSATE (SENOKOT S) TABLET PO SCH (08:20)
[2020-02-09] MEDS: RT-ALBUTEROL SULF 2.5 MG/3 ML PRE-MIX VIAL INH SCH ×2 (09:35→14:02)
--- NOTE | 2020-02-09 11:24 | Progress Note ---
Subjective Subjective/Events-last exam Afebrile, continues to have pain but has been able to manage without IV pain medications. Reports no BM since he was in the ICU. Objective Exam Last Set of Vital Signs Vital Signs Date Time Temp Pulse Resp B/P (MAP) Pulse Ox O2 Delivery O2 Flow Rate FiO2 02/09/20 09:35 90 Room Air 02/09/20 08:00 36.3 92 20 105/70 (82) 02/08/20 20:00 2.00 Capillary Refill : Less Than 3 SecondsLess Than 3 Seconds I&O Intake and Output 02/09/20 00:00 Intake Total 1985 ml Balance 1985 ml Intake Oral 1985 ml # Voids 12 General: Alert, Mild Distress Lungs: Clear to Auscultation, Normal Air Movement Heart: Regular Rate, No Murmurs Abdomen: Normal Bowel Sounds, Other (distended, diffusely tender) Extremities: Other (1+ edema) Neuro: Normal Speech Psych/Mental Status: Mood NL Results/Procedures Lab Laboratory Tests 02/09/20 05:35: White Blood Count 6.7, Red Blood Count 3.45L, Hemoglobin 9.8L, Hematocrit 31L, Mean Corpuscular Volume 89, Mean Corpuscular Hemoglobin 28, Mean Corpuscular Hemoglobin Concent 32, Red Cell Distribution Width 13.9, Platelet Count 294, Mean Platelet Volume 10.2, Sodium Level 134L, Potassium Level 4.1, Chloride Level 100, Carbon Dioxide Level 23, Anion Gap 11, Blood Urea Nitrogen 15, Creatinine 0.73, Estimat Glomerular Filtration Rate > 60, BUN/Creatinine Ratio 21, Glucose Level 107H, Calcium Level 8.2L, Corrected Calcium 9.2, Total Bilirubin 0.9, Aspartate Amino Transf (AST/SGOT) 67H, Alanine Aminotransferase (ALT/SGPT) 59H, Alkaline Phosphatase 218H, Total Protein 5.5L, Albumin 2.7L Microbiology 02/05/20 Blood Culture - Preliminary, Resulted No growth 02/05/20 MRSA Screen - Final, Complete MRSA not isolated Assessment/Plan Assessment/Plan (1) Liver masses Status: Acute Assessment & Plan: Unable to get biopsy done due to hypotension, will need rescheduled. Hepatitis testing outpatient negative. (2) Abdominal pain Status: Acute Assessment & Plan: Suspect related to liver masses, started before this admission. Is requiring significant amount of oxycodone, will start oxycontin to try to manage pain with oral meds in order to be able to d/c and get remainder of work-up done. US ABD doppler pending to eval for acute venous thrombosis, possible d/c this afternoon if normal. Qualifiers: Qualified Codes: R10.84 - Generalized abdominal pain (3) Pneumonia Status: Acute Assessment & Plan: Vitals improved, continue Zosyn. Plan to transition to cefdinir on d/c, blood cultures with no growth. (4) DVT prophylaxis Status: Acute Assessment & Plan: Enoxaparin Clinical Quality Measures DVT/VTE Risk/Contraindication: Risk Factor Score Per Nursin RFS Level Per Nursing on Admit: 2=Moderate HOSSEIN MAYES MD Feb 09, 2020 11:24
--- NOTE | 2020-02-09 13:58 | Diagnostic Imaging Report ---
INDICATION: Hypotension and liver metastases. The study is performed to evaluate for portal vein thrombosis. COMPARISON: Correlation is made with CT study from 02/02/2020. FINDINGS: The liver is enlarged measuring up to 26 cm. Marked liver parenchymal heterogeneity with multiple liver masses is again noted, correlating with the lesions noted on recent CT. Main portal vein does appear to be patent and show normal direction of flow. The right and left portal veins are patent. Hepatic veins are patent. IVC was not visualized. There is no ascites. IMPRESSION: 1. Hepatomegaly with multiple hepatic lesions, suggestive of metastatic disease. 2. Patent portal vein and hepatic veins. Dictated by: Dictated on workstation # [id number]
--- NOTE | 2020-02-09 15:37 | Cardiology Progress Note ---
Cardiology SOAP Progress Note Subjective: No cardiac complaints. Objective: I&O/Vital Signs 02/09/20 02/09/20 02/09/20 02/09/20 03:56 04:06 04:26 08:00 Temp 37.0 36.6 36.6 36.3 Pulse 81 92 Resp 20 20 B/P (MAP) 108/65 (79) 105/70 (82) Pulse Ox 96 93 O2 Delivery Room Air Room Air 02/09/20 02/09/20 02/09/20 08:00 09:35 14:02 Pulse Ox 90 90 92 O2 Delivery Room Air Room Air Room Air 02/09/20 00:00 Intake Total 1530 ml Balance 1530 ml Weight (Pounds): 198 Weight (Ounces): 0.0 Weight (Calculated Kilograms): 89.646994 Constitutional: appears stated age; No apparent distress; well-developed, well- nourished Respiratory: chest is bilaterally symmetric, lungs clear to auscultation Cardiovascular: regular rate-rhythm Gastrointestional: round, audible bowel sounds; No spleenomegaly Extremities: normal range of motion, non-tender, normal inspection; No clubbing , No cyanosis; no lower extremity edema bilateral; No significant edema Neurologic/Psychiatric: no motor/sensory deficits, alert, normal mood/affect, oriented x 3, power is 5/5 both on sides Skin: No rash, No ulcerations Results/Procedures: Labs Laboratory Tests 02/09/20 05:35: White Blood Count 6.7, Red Blood Count 3.45L, Hemoglobin 9.8L, Hematocrit 31L, Mean Corpuscular Volume 89, Mean Corpuscular Hemoglobin 28, Mean Corpuscular Hemoglobin Concent 32, Red Cell Distribution Width 13.9, Platelet Count 294, Mean Platelet Volume 10.2, Sodium Level 134L, Potassium Level 4.1, Chloride Level 100, Carbon Dioxide Level 23, Anion Gap 11, Blood Urea Nitrogen 15, Creatinine 0.73, Estimat Glomerular Filtration Rate > 60, BUN/Creatinine Ratio 21, Glucose Level 107H, Calcium Level 8.2L, Corrected Calcium 9.2, Total Bilirub in 0.9, Aspartate Amino Transf (AST/SGOT) 67H, Alanine Aminotransferase (ALT/SGPT) 59H, Alkaline Phosphatase 218H, Total Protein 5.5L, Albumin 2.7L Microbiology 3/27/20 Blood Culture - Preliminary, Resulted No growth 02/05/20 MRSA Screen - Final, Complete MRSA not isolated A/P: Assessment/Dx: hypotension on admission Shortness of breath, Possible sepsis, Lactic acidosis, Liver mass, Hypertension, Diabetes, Alcohol abuse. Plan: Hypo tension, likely due to dehydration or sepsis. Echocardiogram showed normal LV function with no wall motion abnormalities. No valvular heart disease. Unlikely cardiac etiology. Agree with IV fluids. Improved significantly. Shortness of breath, unlikely cardiac etiology with a normal echocardiogram. Defer to the primary team and pulmonology. Possible sepsis, broad-spectrum IV antibiotics. Defer to Dr. Avilez. Lactic acidosis, Liver mass, Hypertension, hold medications for now. Diabetes, Alcohol abuse. No significant use in the past 2 weeks. Thank you for your consultation. Please call me if you have any questions. Anamika Lombardo MD, FACP, FACC, FSCAI, FHRS, CCDS Interventional Cardiology Cardiac Electrophysiology Vascular Medicine and Endovascular Interventions Catherine LOMBARDO MD Feb 09, 2020 15:37
[2020-02-09] MEDS: ENOXAPARIN 40 MG/0.4 ML (LOVENOX) SYR SC SCH (15:46)
[2020-02-09 16:02] VITALS: BP 119/68
[2020-02-09] MEDS ORDERED: CEFD300C3 PO (16:16)
[2020-02-09] MEDS ORDERED: OXYC10TA85 PO (16:16)
[2020-02-09] MEDS ORDERED: SENN-20 PO (16:16)
--- NOTE | 2020-02-09 16:21 | Discharge Summary ---
Discharge [email or web address] Discharge Medications New, Converted or Re-Newed RX: Transmitted to Pharmacy New Medications: Cefdinir (Cefdinir) 300 Mg Capsule 300 MG PO BID for 5 Days, #10 CAP 0 Refills Oxycodone HCl (Oxycodone HCl ER) 10 Mg Tab.er.12h 10 MG PO BID for 7 Days, #14 TAB 0 Refills Sennosides/Docusate Sodium (Senna-Time S Tablet) 1 Each Tablet 2 EA PO BID, #60 TAB 0 Refills Continued Medications: Albuterol Sulfate (Proair Hfa) 1 Puff Puff 2 PUFF IH Q4H PRN for SHORTNESS OF BREATH, PUFF 1 PUFF = 90 MCG Cyclobenzaprine HCl (Cyclobenzaprine HCl) 10 Mg Tablet 10 MG PO TID PRN for MUSCLE SPASMS, TAB Meloxicam (Meloxicam) 7.5 Mg Tablet 7.5 MG PO BID, TAB Metformin HCl (Metformin HCl) 500 Mg Tablet 500 MG PO DAILY, TAB Omeprazole Magnesium (Omeprazole Magnesium) 20 Mg Capsule.dr 20 MG PO DAILY, CAP Oxycodone HCl (Oxycodone HCl) 5 Mg Tablet 5-10 MG PO Q4H PRN for PAIN-SEVERE (8-10), TAB Discontinued Medications: Amlodipine Besylate (Amlodipine Besylate) 5 Mg Tablet 5 MG PO DAILY, TAB Lisinopril (Lisinopril) 20 Mg Tablet 20 MG PO DAILY, TAB Tramadol HCl (Tramadol HCl) 50 Mg Tablet 50 MG PO BID PRN for PAIN-MODERATE (5-7), TAB Patient Instructions Goal/Follow Up Appt: Follow up with Pawan Orona APRN on 02/11 at 9 am. We are working on rescheduling your liver biopsy and will let you know as soon as it is scheduled. Return to The Hospital For: Inability to keep down medications, fever, shortness of breath, dizziness Activity & Diet Discharge Diet: ADA Diet Copy Copies To 1: TERESA Huitron BETHANY N MD Feb 09, 2020 16:21
[2020-02-09 16:44] VITALS: BP 105/70
--- NOTE | 2020-02-10 09:32 | NUR ---
(Late entry) CM/SS missed notification of patient discharge. CM/SS contacted the patients sister Gloria on 02/08 to find out availability for transportation for when patient was to discharge. CM/SS needed finalized meds to check pricing on pain medication with [facility] ([facility]). Patient was discharge. CM/SS attempted to call the patient today on 02/09 to follow up and see if cost on medications was still needed or if patient already filled scripts. CM/SS left a voice mail with call back number.
== END 2020-02-09 18:20 | disposition home or self-care (01) | DRG 871 ==
LOC: EDUNIT# 10:42 → ER 10:45 → ICU 12:36 → UNDOADMOB 12:36 → ICU 14:00 → CSD 14:52 → OBSVTOIN 17:00 → ICU 02-06 17:40 → 4TH 02-06 17:40 → UNDODISOB 02-09 18:20
PROVIDERS: ADMIT Internal Medicine; ATTEND Family Medicine
DX: A41.9 Sepsis, unspecified organism (principal); R65.20 Severe sepsis without septic shock; J18.9 Pneumonia, unspecified organism; C78.7 Secondary malignant neoplasm of liver and intrahepatic bile duct; K74.60 Unspecified cirrhosis of liver; E78.5 Hyperlipidemia, unspecified; I10 Essential (primary) hypertension; G62.9 Polyneuropathy, unspecified; K21.9 Gastro-esophageal reflux disease without esophagitis; M19.91 Primary osteoarthritis, unspecified site; F10.10 Alcohol abuse, uncomplicated
CPT/HCPCS: 36415; 71045; 80053; 80320; 81000; 82140; 82805; 83605; 84145; 84484; 85025; 85027; 85610; 85730; 86703; 87040; 87081; 93005; 93306; 93976; 94640; 94664; 94760; 96360

== ENCOUNTER 2020-02-16 08:54 | Emergency (ER) | payer OTHER ==
[~2020-02-16] VITALS: Ht 170.1 cm; Wt 104.0 kg
[~2020-02-16 08:54] MED LIST changes: +CEFD300C3 PO; +LISI-552 PO; +MELO7.5T46 PO; +METF-397 PO; +OMEP-254 PO; +OXYC10TA85 PO; +OXYC5TAB96 PO; +RT-ALBUINH IH; +SENN-20 PO; +TRM50T PO
[2020-02-16 10:38] LABS: ALBUMIN 2.9 GM/DL (3.2-4.5); BASOPHILS % (AUTO) 0 % (0-10); CHLORIDE 99 MMOL/L (98-107); EOSINOPHILS % (AUTO) 0 % (0-10); HEMATOCRIT 36 % (40-54); HEMOGLOBIN 11.6 G/DL (13.3-17.7); LYMPHOCYTES # (AUTO) 0.6 X 10^3 (1.0-4.0); LYMPHOCYTES % (AUTO) 6 % (12-44); MEAN CORPUSCULAR HEMOGLOBIN 28 PG (25-34); MEAN CORPUSCULAR HGB CONC 32 G/DL (32-36); MEAN CORPUSCULAR VOLUME 87 FL (80-99); MEAN PLATELET VOLUME 10.1 FL (7.4-10.4); MONOCYTES % (AUTO) 10 % (0-12); NEUTROPHILS # (AUTO) 8.4 X 10^3 (1.8-7.8); NEUTROPHILS % (AUTO) 84 % (42-75); PLATELET COUNT 332 10^3/uL (130-400); POTASSIUM 4.3 MMOL/L (3.6-5.0); RED CELL DISTRIBUTION WIDTH 15.1 % (10.0-14.5); WHITE BLOOD COUNT 10.1 10^3/uL (4.3-11.0)
[2020-02-16 10:39] LABS: SODIUM 132 MMOL/L (135-145)
[2020-02-16 10:40] LABS: CALCIUM 8.8 MG/DL (8.5-10.1)
[2020-02-16 10:41] LABS: GLUCOSE 97 MG/DL (70-105)
[2020-02-16 10:42] LABS: CARBON DIOXIDE 18 MMOL/L (21-32)
[2020-02-16 10:43] LABS: BILIRUBIN,TOTAL 3.1 MG/DL (0.1-1.0)
[2020-02-16 10:44] LABS: ALKALINE PHOSPHATASE 368 U/L (40-136); GFR ESTIMATED > 60
[2020-02-16 10:45] LABS: BUN/CREATININE RATIO 25
[2020-02-16 10:47] LABS: ALANINE AMINOTRANSFERASE 93 U/L (0-55)
--- NOTE | 2020-02-16 10:54 | ED GI ---
General Chief Complaint: Abdominal/GI Problems Stated Complaint: STOMACH PAIN Nursing Triage Note: pt presents to ed with increasing abd pain. pt recently discharged from hospital. Sepsis Screen: No Definite Risk Source of Information: Patient Exam Limitations: No Limitations History of Present Illness Date Seen by Provider: Feb 16, 2020 Time Seen by Provider: 10:52 Initial Comments To ER with increasing abdominal pain. I admitted him to the hospital after a syncopal event/hypotension and pneumonia prior to outpatient liver biopsy on 02/04. He was discharged on 02/08. He has oxycodone 10 mg twice a day but needs something for the middle of the day he states. Has several masses in the liver consistent with metastatic disease, no known primary. Timing/Duration: 1-2 Days Severity/Quality: Moderate Location: Generalized Abdomen Radiation: No Radiation Activities at Onset: None Associated Symptoms: Nausea/Vomiting Allergies and Home Medications Allergies Coded Allergies: codeine (Verified Allergy, Unknown, Pt has received Lortab & morphine in the past, 05/30/17) Home Medications Albuterol Sulfate 1 Puff Puff, 2 PUFF IH Q4H PRN for SHORTNESS OF BREATH, (Reported) 1 PUFF = 90 MCG Cefdinir 300 Mg Capsule, 300 MG PO BID Prescribed by: HOSSEIN MAYES on 02/09/20 1616 Cyclobenzaprine HCl 10 Mg Tablet, 10 MG PO TID PRN for MUSCLE SPASMS, (Reported) Meloxicam 7.5 Mg Tablet, 7.5 MG PO BID, (Reported) Metformin HCl 500 Mg Tablet, 500 MG PO DAILY, (Reported) Omeprazole Magnesium 20 Mg Capsule.dr, 20 MG PO DAILY, (Reported) Oxycodone HCl 5 Mg Tablet, 5-10 MG PO Q4H PRN for PAIN-SEVERE (8-10), (Reported) Oxycodone HCl 10 Mg Tab.er.12h, 10 MG PO BID Prescribed by: HOSSEIN MAYES on 02/09/20 1618 Oxycodone Hcl 5 Mg Tab, 5 MG PO Q4H PRN for PAIN-SEVERE Prescribed by: HUGO JAY on 02/16/20 1152 Sennosides/Docusate Sodium 1 Each Tablet, 2 EA PO BID Prescribed by: HOSSEIN MAYES on 02/09/20 1616 Patient Home Medication List Home Medication List Reviewed: Yes Review of Systems Review of Systems Constitutional: see HPI, chills, fever (subjective fevers at night. ), other EENTM: See HPI Respiratory: See HPI, SOA With Exertion Cardiovascular: No Symptoms Reported Gastrointestinal: See HPI, Abdominal Pain Genitourinary: No Symptoms Reported Musculoskeletal: no symptoms reported Skin: no symptoms reported Psychiatric/Neurological: No Symptoms Reported Endocrine: No Symptoms Reported Past Aavqaik-Mzlkxj-Pmxpat Hx Patient Social History Alcohol Use: Past History Number of Drinks Today: II Alcohol Beverage of Choice: Other Recreational Drug Use: No Drug of Choice: MARIJUANA Recent Foreign Travel: No Contact w/Someone Who Travel: No Recent Infectious Disease Expo: No Recent Hopitalizations: Yes (02/05/2020) Physical Abuse: No Sexual Abuse: No Immunizations Up To Date Tetanus Booster (TDap): Unknown Date of Influenza Vaccine: Oct 07, 2019 Seasonal Allergies Seasonal Allergies: No Past Medical History Surgeries: Yes (R KNEE) Respiratory: No Cardiac: Yes High Cholesterol, Hypertension Neurological: Yes (cervical stenosis) Neuropathy Reproductive Disorders: No Sexually Transmitted Disease: No HIV/AIDS: No Genitourinary: No Gastrointestinal: Yes Gastroesophageal Reflux, Cirrhosis Musculoskeletal: Yes Arthritis Endocrine: No HEENT: No Cancer: Yes Liver Psychosocial: No Integumentary: No Blood Disorders: No Adverse Reaction/Blood Tranf: No Family Medical History FH: congestive heart failure 19 MOTHER Myocardial infarction 19 FATHER Heart Disease, CAD Over 55 Years Old Physical Exam Vital Signs Vital Signs - First Documented 02/16/20 10:03 Temp 36.8 Pulse 118 Resp 25 B/P (MAP) 126/56 (79) Pulse Ox 92 Capillary Refill : Less Than 3 Seconds Height/Weight/BMI Height: 5'7.00" Weight: 198lbs. 0.0oz. 89.217216pb; 35.00 BMI Method:Stated General Appearance: WD/WN, no apparent distress, other (not hypotensive, he is 110/69. Heart rate is tachycardia at 117. Oxygen is 90-92% on room air.) HEENT: PERRL/EOMI, normal ENT inspection Respiratory: no respiratory distress, no accessory muscle use Cardiovascular: no murmur, tachycardia Gastrointestinal: normal bowel sounds, distended, tenderness Extremities: normal range of motion, non-tender Neurologic/Psychiatric: alert, normal mood/affect, oriented x 3 Skin: normal color, warm/dry Progress/Results/Core Measures Results/Orders Lab Results Laboratory Tests Test 02/16/20 10:16 Range/Units White Blood Count 10.1 4.3-11.0 10^3/uL Red Blood Count 4.14 L 4.35-5.85 10^6/uL Hemoglobin 11.6 L 13.3-17.7 G/DL Hematocrit 36 L 40-54 % Mean Corpuscular Volume 87 80-99 FL Mean Corpuscular Hemoglobin 28 25-34 PG Mean Corpuscular Hemoglobin Concent 32 32-36 G/DL Red Cell Distribution Width 15.1 H 10.0-14.5 % Platelet Count 332 130-400 10^3/uL Mean Platelet Volume 10.1 7.4-10.4 FL Neutrophils (%) (Auto) 84 H 42-75 % Lymphocytes (%) (Auto) 6 L 12-44 % Monocytes (%) (Auto) 10 0-12 % Eosinophils (%) (Auto) 0 0-10 % Basophils (%) (Auto) 0 0-10 % Neutrophils # (Auto) 8.4 H 1.8-7.8 X 10^3 Lymphocytes # (Auto) 0.6 L 1.0-4.0 X 10^3 Monocytes # (Auto) 1.0 0.0-1.0 X 10^3 Eosinophils # (Auto) 0.0 0.0-0.3 10^3/uL Basophils # (Auto) 0.0 0.0-0.1 10^3/uL Neutrophils % (Manual) 82 % Lymphocytes % (Manual) 5 % Monocytes % (Manual) 7 % Eosinophils % (Manual) 1 % Basophils % (Manual) 1 % Band Neutrophils 4 % Anisocytosis SLIGHT Macrocytosis SLIGHT Sodium Level 132 L 135-145 MMOL/L Potassium Level 4.3 3.6-5.0 MMOL/L Chloride Level 99 98-107 MMOL/L Carbon Dioxide Level 18 L 21-32 MMOL/L Anion Gap 15 H 5-14 MMOL/L Blood Urea Nitrogen 20 H 7-18 MG/DL Creatinine 0.80 0.60-1.30 MG/DL Estimat Glomerular Filtration Rate > 60 BUN/Creatinine Ratio 25 Glucose Level 97 70-105 MG/DL Calcium Level 8.8 8.5-10.1 MG/DL Corrected Calcium 9.7 8.5-10.1 MG/DL Total Bilirubin 3.1 H 0.1-1.0 MG/DL Aspartate Amino Transf (AST/SGOT) 167 H 5-34 U/L Alanine Aminotransferase (ALT/SGPT) 93 H 0-55 U/L Alkaline Phosphatase 368 H 40-136 U/L Total Protein 6.0 L 6.4-8.2 GM/DL Albumin 2.9 L 3.2-4.5 GM/DL My Orders Orders - HUGO JAY APRN Cbc With Automated Diff (02/16/20 10:31) Comprehensive Metabolic Panel (02/16/20 10:31) Manual Differential (02/16/20 10:16) Fentanyl Injection (Sublimaze Injection (02/16/20 11:00) Oxycodone Immediate Rel Tablet (Oxyir Ta (02/16/20 11:00) Us Abdomen Limited [id number] (02/16/20 10:51) Ct Angio Chest W (02/16/20 10:55) Iohexol Injection (Omnipaque 350 Mg/Ml 1 (02/16/20 11:15) Received Contrast (Hold Metformin- Contr (02/16/20 11:15) Ns (Ivpb) (Sodium Chloride 0.9% Ivpb Bag (02/16/20 11:15) Medications Given in ED Current Medications Medications Dose Ordered Sig/Kacey Route Start Time Stop Time Status Last Admin Dose Admin Fentanyl Citrate 50 mcg ONCE ONCE IVP 02/16/20 11:00 02/16/20 11:01 DC 02/16/20 11:01 50 MCG Oxycodone HCl 10 mg ONCE ONCE PO 02/16/20 11:00 02/16/20 11:01 DC 02/16/20 11:01 10 MG Vital Signs/I&O 02/16/20 10:03 Temp 36.8 Pulse 118 Resp 25 B/P (MAP) 126/56 (79) Pulse Ox 92 Blood Pressure Mean: 79 Diagnostic Imaging Diagonstic Imaging: CT, Ultrasound Comments NAME: HUAN HILL MED REC#: [id number] PT STATUS: REG ER : 1960 PHYSICIAN: HUGO JAY APRN ADMIT DATE: 02/16/20/ER Draft Date of Exam:02/16/20 US ABDOMEN LIMITED [id number] PROCEDURE: US Abdomen, limited. TECHNIQUE: Real-time grayscale ultrasound was performed over the abdomen in all four quadrants. INDICATION: Evaluate for ascites. COMPARISON: Abdominal ultrasound performed on 02/09/2020. FINDINGS: There is a small amount of ascites in the right upper quadrant anterior to the liver. No significant ascites is demonstrated in the other abdominal quadrants. Although not tailored for evaluation of the liver, the visualized portions of liver demonstrate a markedly coarsened and heterogeneous echotexture. IMPRESSION: Trace perihepatic ascites is demonstrated in the right upper abdominal quadrant. Dictated on workstation # [id number] Dict: 02/16/20 1122 Trans: 02/16/20 1141 [id number] Interpreted by: SHITAL CHURCHILL DO Electronically signed by: NAME: HUAN HILL WM REC#: [id number] PT STATUS: REG ER : 1960 PHYSICIAN: HUGO JAY APRN ADMIT DATE: 02/16/20/ER Draft Date of Exam:02/16/20 CT ANGIO CHEST W PROCEDURE: CT angiography of the chest with contrast. TECHNIQUE: Multiple contiguous axial images were obtained through the chest after uneventful bolus administration of intravenous contrast. 3D reconstructed CTA MIP acquisitions were also performed. Auto Exposure Controls were utilized during the CT exam to meet ALARA standards for radiation dose reduction. INDICATION: Shortness of air. Upper abdominal pain. Known metastatic disease to the liver. COMPARISON: CT abdomen and pelvis dated 02/02/2020 FINDINGS: There is no CTA evidence of acute pulmonary embolus to the 1st subsegmental division of the pulmonary arteries. Heart size is within normal limits. There is mild scattered calcified aortic atherosclerosis. Otherwise, thoracic aorta is normal in course and caliber. There is no large pericardial effusion. No pathologically enlarged or morphologically abnormal adenopathy is seen within the mediastinum, thierry, nor axilla. Again identified is asymmetric elevation of the right hemidiaphragm with right basilar atelectasis. Otherwise, lungs are clear. There is no focal consolidation, large effusion, nor pneumothorax. No suspicious pulmonary nodules or masses are identified, although evaluation is mildly degraded by motion artifact. Osseous structures show age-related degenerative changes. No lytic or blastic bony lesions are seen. Included portions of the upper abdomen again show numerous large masses throughout the liver consistent with metastatic disease. Small amount of ascites is also noted within the right upper abdominal quadrant. IMPRESSION: 1. No evidence of acute pulmonary embolus at the 1st subsegmental division of the pulmonary arteries. 2. No other acute cardiopulmonary process identified. 3. Redemonstration of extensive metastatic disease to the liver. 4. Small amount of right upper abdominal quadrant ascites. Dictated on workstation # [id number] Dict: 02/16/20 1132 Trans: 02/16/20 1138 [id number] Interpreted by: FAISAL MONREAL MD Electronically signed by: Departure Communication (Admissions) 1154-feeling better from a pain standpoint. Will dc to home. HR 110, o2 92% room air. May benefit from home o2 + caridology eval as he does get dyspneic with activity. I called [facility] and spoke with Pawan Mitchell nurse to help facilitate this in the outpatient setting. Impression Primary Impression: Abdominal pain Additional Impression: Liver metastases Disposition: HOME, SELF-CARE Condition: Stable Departure-Patient Inst. Decision time for Depature: 11:43 Referrals: [facility] [place] (PCP) Primary Care Physician JAYME ESPARZA (Family) Primary Care Physician Patient Instructions: No Instuctions Given Add. Discharge Instructions: 1. Return to ER for any chest pain shortness of breath difficulty breathing, intolerable abdominal pain. Call your primary care provider to be seen today. All discharge instructions reviewed with patient and/or family. Voiced understanding. Scripts Oxycodone Hcl (Oxycodone IR) 5 Mg Tab 5 MG PO Q4H PRN for PAIN-SEVERE for 7 Days, #20 TAB Prov: HUGO JAY APRN 02/16/20 Copy Copies To 1: ART QUINTERO PETER J APRN Feb 16, 2020 10:54
[2020-02-16] MEDS ORDERED: fentaNYL INJECTION 100 MCG/2 ML AMP IVP ONE (11:00)
[2020-02-16] MEDS ORDERED: IOHEXOL 350 MG/ML 100 ML (OMNIPAQUE 350) VIAL IV ONE (11:15)
[2020-02-16] MEDS ORDERED: HOLD METFORMIN - RECEIVED CONTRAST 20 ML VIAL IV SCH (11:15)
[2020-02-16] MEDS ORDERED: NS 100 ML (IVPB) BAG IV ONE (11:15)
--- NOTE | 2020-02-16 11:38 | Diagnostic Imaging Report ---
PROCEDURE: CT angiography of the chest with contrast. TECHNIQUE: Multiple contiguous axial images were obtained through the chest after uneventful bolus administration of intravenous contrast. 3D reconstructed CTA MIP acquisitions were also performed. Auto Exposure Controls were utilized during the CT exam to meet ALARA standards for radiation dose reduction. INDICATION: Shortness of air. Upper abdominal pain. Known metastatic disease to the liver. COMPARISON: CT abdomen and pelvis dated 02/02/2020 FINDINGS: There is no CTA evidence of acute pulmonary embolus to the 1st subsegmental division of the pulmonary arteries. Heart size is within normal limits. There is mild scattered calcified aortic atherosclerosis. Otherwise, thoracic aorta is normal in course and caliber. There is no large pericardial effusion. No pathologically enlarged or morphologically abnormal adenopathy is seen within the mediastinum, thierry, nor axilla. Again identified is asymmetric elevation of the right hemidiaphragm with right basilar atelectasis. Otherwise, lungs are clear. There is no focal consolidation, large effusion, nor pneumothorax. No suspicious pulmonary nodules or masses are identified, although evaluation is mildly degraded by motion artifact. Osseous structures show age-related degenerative changes. No lytic or blastic bony lesions are seen. Included portions of the upper abdomen again show numerous large masses throughout the liver consistent with metastatic disease. Small amount of ascites is also noted within the right upper abdominal quadrant. IMPRESSION: 1. No evidence of acute pulmonary embolus at the 1st subsegmental division of the pulmonary arteries. 2. No other acute cardiopulmonary process identified. 3. Redemonstration of extensive metastatic disease to the liver. 4. Small amount of right upper abdominal quadrant ascites. Dictated by: Dictated on workstation # [id number]
[2020-02-16 11:39] LABS: BAND NEUTROPHILS 4 %; BASOPHILS % (MANUAL) 1 %; EOSINOPHILS % (MANUAL) 1 %; LYMPHOCYTES % (MANUAL) 5 %; MONOCYTES % (MANUAL) 7 %; NEUTROPHILS % (MANUAL) 82 %
[2020-02-16 11:40] LABS: ANISOCYTOSIS SLIGHT
--- NOTE | 2020-02-16 11:41 | Diagnostic Imaging Report ---
PROCEDURE: US Abdomen, limited. TECHNIQUE: Real-time grayscale ultrasound was performed over the abdomen in all four quadrants. INDICATION: Evaluate for ascites. COMPARISON: Abdominal ultrasound performed on 02/09/2020. FINDINGS: There is a small amount of ascites in the right upper quadrant anterior to the liver. No significant ascites is demonstrated in the other abdominal quadrants. Although not tailored for evaluation of the liver, the visualized portions of liver demonstrate a markedly coarsened and heterogeneous echotexture. IMPRESSION: Trace perihepatic ascites is demonstrated in the right upper abdominal quadrant. Dictated by: Dictated on workstation # [id number]
[2020-02-16] MEDS ORDERED: OXC5T PO (11:52)
[2020-02-16 12:13] VITALS: BP 109/93
== END 2020-02-16 12:13 | disposition home or self-care (01) ==
LOC: EDUNIT# 08:54 → ER 08:56
DX: C78.7 Secondary malignant neoplasm of liver and intrahepatic bile duct (principal); K21.9 Gastro-esophageal reflux disease without esophagitis; Z88.5 Allergy status to narcotic agent; Z79.84 Long term (current) use of oral hypoglycemic drugs; Z82.49 Family history of ischemic heart disease and other diseases of the circulatory system
CPT/HCPCS: 36415; 71275; 76705; 80053; 85007; 85027; 96374